=== PATIENT | male | born 1940 | race Caucasian/White ===

== ENCOUNTER 2019-08-30 12:25 | Inpatient (IN) | payer MEDICARE, OTHER ==
[2019-08-30 13:34] LABS: INR 0.9 (<1.2); Partial Thromboplastin Time 25.8 sec (22.0-30.0); Prothrombin Time 9.9 sec (9.0-12.0)
--- NOTE | 2019-08-30 13:35 | ED ---
General Adult HPI - General Chief complaint: Shortness of Breath Stated complaint: SOB Time Seen by Provider: 08/30/19 12:32 Source: patient, RN notes reviewed, old records reviewed Mode of arrival: wheelchair Limitations: physical limitation - History of Present Illness Initial comments: 79-year-old male history of COPD, history of congestive heart failure presenting with dyspnea. Patient does report a mild dry cough. Denies URI symptoms. Denies fever. Denies any chest pain. He states he's had some swelling in his feet. Denies abdominal pain nausea vomiting. He was seen by his primary care physician 2 days ago and was scheduled for an appointment later today but was unable to keep this appointment secondary to worsening dyspnea. Not currently on antibiotics or steroids. Currently taking 40 mg Lasix once daily. - Related Data Home Medications Medication Instructions Recorded Confirmed Docusate [Colace] 100 mg PO HS 12/13/14 10/22/15 Multivitamin [Men's Multi-Vitamin] 1 tab PO HS 12/13/14 10/22/15 Valsartan 320 mg PO HS 12/13/14 10/22/15 Furosemide [Lasix] 40 mg PO HS 10/22/15 10/22/15 Levothyroxine Sodium [Synthroid] 75 mcg PO HS 10/22/15 10/22/15 Potassium Chloride ER [K-Dur 20] 20 meq PO HS 10/22/15 10/22/15 Previous Rx's Medication Instructions Recorded Levofloxacin [Levaquin] 250 mg PO DAILY #10 tab 10/18/15 Allergies Allergy/AdvReac Type Severity Reaction Status Date / Time Sulfa (Sulfonamide Allergy Rash/Hives Verified 08/30/19 12:30 Antibiotics) Review of Systems ROS Statement: Those systems with pertinent positive or pertinent negative responses have been documented in the HPI. ROS Other: All systems not noted in ROS Statement are negative. Past Medical History Past Medical History: Atrial Fibrillation, Blood Disorder, COPD, GERD/Reflux, GI Bleed, Hypertension, Thyroid Disorder Additional Past Medical History / Comment(s): ANEMIA, HIATAL HERNIA (PER EGD) arrhythmia"NEEDS A PACEMAKER", skin cancer - RUPETROS Aldridge, R lutheran, Nose (sees Dr. Cortez) PAST RT LEG ULCERS History of Any Multi-Drug Resistant Organisms: VRE Date of last positivie culture/infection: 02/24/15 MDRO Source:: Right leg wound Past Surgical History: Adenoidectomy, Tonsillectomy Additional Past Surgical History / Comment(s): hemorrhoidectomy, tennis elbow, EGD. Past Anesthesia/Blood Transfusion Reactions: No Reported Reaction Past Psychological History: No Psychological Hx Reported Smoking Status: Current every day smoker Past Alcohol Use History: None Reported Past Drug Use History: None Reported - Past Family History Mother Family Medical History: No Reported History Daughter(s) History Unknown: Yes Family Medical History: Cancer Additional Family Medical History / Comment(s): uterine/lung/brain CA - current terminal Father History Unknown: Yes Family Medical History: Cancer Additional Family Medical History / Comment(s): prostate CA - from General Exam Limitations: physical limitation General appearance: alert, in no apparent distress Head exam: Present: atraumatic, normocephalic Eye exam: Present: normal appearance, PERRL, EOMI ENT exam: Present: normal exam Neck exam: Present: normal inspection. Absent: tenderness, meningismus Respiratory exam: Present: rales, decreased breath sounds. Absent: respiratory distress Cardiovascular Exam: Present: regular rate, normal rhythm GI/Abdominal exam: Present: soft, distended. Absent: tenderness, guarding Extremities exam: Present: pedal edema Neurological exam: Present: alert, oriented X3, CN II-XII intact. Absent: motor sensory deficit Psychiatric exam: Present: normal affect, normal mood Skin exam: Present: warm, dry, intact. Absent: cyanosis, diaphoretic Course Vital Signs 08/30/19 08/30/19 08/30/19 12:28 13:30 14:00 Temperature 97.9 F Pulse Rate 90 69 68 Respiratory 20 18 18 Rate Blood Pressure 151/83 143/91 171/79 O2 Sat by Pulse 97 100 98 Oximetry EKG Findings - EKG Comments: EKG Findings:: EKG: Sinus rhythm with first-degree AV block, bifascicular block, rate of 63, WY interval 248, QRS duration 160, QTC 466, no ST segment elevation. high degree block. Medical Decision Making - Medical Decision Making 79-year-old male presenting with dyspnea, minimal cough, lower extremity swelling. Patient is afebrile. He has bilateral Rales on exam. Minimal bilateral pedal edema. Chest x-ray showing concern for infiltrate and effusion. No cough, no fever, normal white blood cell count, suspect this is more related to congestive heart failure but will initiate antibiotics in the emergen cy department. His hemoglobin is stable. His creatinine is at baseline 1.71. He has a troponin elevation 0.124 which does appear to be chronic. This level will be trended. He will be started on heparin awaiting the trending of this enzyme and cardiology evaluation. His BMP is significantly elevated suggestive again of congestive heart failure was given IV diuretics in the emergency department. Patient has multiple reasons to be dyspneic including CHF, baseline COPD and concern for pneumonia. He will be admitted with cardiology on consult. I did discuss case with Dr. Mitchell who will admit this patient. He does request covid 19 testing which will be obtained in the emergency department these results are pending. - Lab Data Result diagrams: 08/30/19 13:00 08/30/19 13:00 Lab Results 08/30/19 08/30/19 08/30/19 Range/Units 13:00 13:00 13:00 WBC 10.0 (3.8-10.6) k/uL RBC 4.83 (4.30-5.90) m/uL Hgb 13.2 (13.0-17.5) gm/dL Hct 42.7 (39.0-53.0) % MCV 88.4 (80.0-100.0) fL MCH 27.3 (25.0-35.0) pg MCHC 30.9 L (31.0-37.0) g/dL RDW 14.8 (11.5-15.5) % Plt Count 308 (150-450) k/uL Neutrophils % 83 % Lymphocytes % 6 % Monocytes % 6 % Eosinophils % 3 % Basophils % 0 % Neutrophils # 8.3 H (1.3-7.7) k/uL Lymphocytes # 0.6 L (1.0-4.8) k/uL Monocytes # 0.6 (0-1.0) k/uL Eosinophils # 0.3 (0-0.7) k/uL Basophils # 0.0 (0-0.2) k/uL Hypochromasia Slight PT 9.9 (9.0-12.0) sec INR 0.9 (<1.2) APTT 25.8 (22.0-30.0) sec Sodium 142 (137-145) mmol/L Potassium 5.3 H (3.5-5.1) mmol/L Chloride 108 H (98-107) mmol/L Carbon Dioxide 28 (22-30) mmol/L Anion Gap 6 mmol/L BUN 45 H (9-20) mg/dL Creatinine 1.71 H (0.66-1.25) mg/dL Est GFR (CKD-EPI)AfAm 43 (>60 ml/min/1.73 sqM) Est GFR (CKD-EPI)NonAf 37 (>60 ml/min/1.73 sqM) Glucose 94 (74-99) mg/dL Plasma Lactic Acid Nacho (0.7-2.0) mmol/L Calcium 9.2 (8.4-10.2) mg/dL Magnesium 2.3 (1.6-2.3) mg/dL Total Bilirubin 0.4 (0.2-1.3) mg/dL AST 62 H (17-59) U/L ALT 76 H (4-49) U/L Alkaline Phosphatase 114 (38-126) U/L Troponin I (0.000-0.034) ng/mL NT-Pro-B Natriuret Pep pg/mL Total Protein 7.0 (6.3-8.2) g/dL Albumin 4.0 (3.5-5.0) g/dL 08/30/19 08/30/19 08/30/19 Range/Units 13:00 13:00 13:00 WBC (3.8-10.6) k/uL RBC (4.30-5.90) m/uL Hgb (13.0-17.5) gm/dL Hct (39.0-53.0) % MCV (80.0-100.0) fL MCH (25.0-35.0) pg MCHC (31.0-37.0) g/dL RDW (11.5-15.5) % Plt Count (150-450) k/uL Neutrophils % % Lymphocytes % % Monocytes % % Eosinophils % % Basophils % % Neutrophils # (1.3-7.7) k/uL Lymphocytes # (1.0-4.8) k/uL Monocytes # (0-1.0) k/uL Eosinophils # (0-0.7) k/uL Basophils # (0-0.2) k/uL Hypochromasia PT (9.0-12.0) sec INR (<1.2) APTT (22.0-30.0) sec Sodium (137-145) mmol/L Potassium (3.5-5.1) mmol/L Chloride (98-107) mmol/L Carbon Dioxide (22-30) mmol/L Anion Gap mmol/L BUN (9-20) mg/dL Creatinine (0.66-1.25) mg/dL Est GFR (CKD-EPI)AfAm (>60 ml/min/1.73 sqM) Est GFR (CKD-EPI)NonAf (>60 ml/min/1.73 sqM) Glucose (74-99) mg/dL Plasma Lactic Acid Nacho 0.8 (0.7-2.0) mmol/L Calcium (8.4-10.2) mg/dL Magnesium (1.6-2.3) mg/dL Total Bilirubin (0.2-1.3) mg/dL AST (17-59) U/L ALT (4-49) U/L Alkaline Phosphatase (38-126) U/L Troponin I 0.124 H* (0.000-0.034) ng/mL NT-Pro-B Natriuret Pep 67548 pg/mL Total Protein (6.3-8.2) g/dL Albumin (3.5-5.0) g/dL Critical Care Time Critical Care Time: Yes Total Critical Care Time: 35 Disposition Clinical Impression: Congestive heart failure, Elevated troponin, Community acquired pneumonia Disposition: ADMITTED IP TO THIS [facility] Condition: Stable Referrals: Alexandra Mitchell MD [Primary Care Provider] - 1-2 days Decision to Admit Reason: Admit from EC Decision Date: 08/30/19 Decision Time: 14:30
[2019-08-30 13:37] LABS: Basophils % (A) 0 %; Calcium 9.2 mg/dL (8.4-10.2); Eosinophils # (A) 0.3 k/uL (0-0.7); Eosinophils % (A) 3 %; HCT 42.7 % (39.0-53.0); HGB 13.2 gm/dL (13.0-17.5); Hypochromasia Slight; Lymphocytes # (A) 0.6 k/uL (1.0-4.8); Lymphocytes % (A) 6 %; MCH 27.3 pg (25.0-35.0); MCHC 30.9 g/dL (31.0-37.0); MCV 88.4 fL (80.0-100.0); Magnesium 2.3 mg/dL (1.6-2.3); Mean Platelet Volume 7.9; Monocytes # (A) 0.6 k/uL (0-1.0); Monocytes % (A) 6 %; Neutrophils # (A) 8.3 k/uL (1.3-7.7); Neutrophils % (A) 83 %; Platelet Count 308 k/uL (150-450); Potassium 5.3 mmol/L (3.5-5.1); RBC 4.83 m/uL (4.30-5.90); RDW 14.8 % (11.5-15.5); Total Bilirubin 0.4 mg/dL (0.2-1.3)
--- NOTE | 2019-08-30 13:43 | XR ---
EXAMINATION TYPE: XR chest 2V DATE OF EXAM: 08/30/2019 COMPARISON: 10/22/2015 INDICATION: Difficulty breathing cough short of breath TECHNIQUE: Frontal and lateral views of the chest are obtained. FINDINGS: The heart size is enlarged. The pulmonary vasculature is normal. Posterior infiltrate and small effusion may be present. IMPRESSION: 1. Posterior lower lobe infiltrate with small effusion.
[2019-08-30] MEDS ORDERED: cefTRIAXone IN SWFI 1,000 MG/10 ML SYRINGE IVP STA (13:45)
[2019-08-30] MEDS ORDERED: AZITHROMYCIN 500 MG in SODIUM CHLORIDE 0.9% 250 ML IVPB STA (13:45)
[2019-08-30] MEDS ORDERED: methylPREDNISolone SOD SUCCI 125 MG/2 ML VIAL IV STA (13:46)
[2019-08-30] MEDS ORDERED: ASPIRIN 325 MG TAB PO STA (14:12)
[2019-08-30] MEDS ORDERED: FUROSEMIDE 10 MG/ML 4 ML VIAL IV STA (14:24)
[2019-08-30] MEDS ORDERED: HEPARIN SODIUM,PORCINE 5,000 UNIT/ML 1 ML VIAL IV PRN (14:25)
[2019-08-30] MEDS ORDERED: NALOXONE 0.4 MG/ML 1 ML VIAL IV PRN (14:25)
[2019-08-30] MEDS ORDERED: HEPARIN SODIUM,PORCINE 5,000 UNIT/ML 1 ML VIAL IV ONE (14:25)
[2019-08-30] MEDS ORDERED: ACETAMINOPHEN TAB 325 MG TAB PO PRN (14:25)
[2019-08-30] MEDS ORDERED: HEPARIN SOD,PORK IN 0.45% NACL 25,000 UNIT in 0.45% NACL 1 250ML.BAG IV SCH (14:30)
[2019-08-30] MEDS ORDERED: FUROSEMIDE 20 MG TAB PO SCH (21:00)
[2019-08-30] MEDS ORDERED: SODIUM POLYSTYRENE SULFONATE 15 GM/60 ML BOTTLE PO STA (21:16)
[2019-08-30] MEDS: POTASSIUM CHLORIDE ER 10 MEQ TAB.ER.PRT PO SCH (21:18)
[2019-08-30] MEDS: MULTIVITAMINS, THERA 1 EACH TAB PO SCH (21:24)
[2019-08-30] MEDS: LEVOTHYROXINE 88 MCG TAB PO SCH (21:24)
[2019-08-30] MEDS: LOSARTAN 50 MG TAB PO SCH (21:24)
[2019-08-30] MEDS ORDERED: hydrALAZINE HCL 25 MG TAB PO STA (23:33)
[2019-08-30] MEDS: SODIUM CHLORIDE 0.9% 1,000 ML IV SCH (23:41)
[2019-08-31 04:24] LABS: Basophils % (A) 0 %; Eosinophils % (A) 0 %; HCT 39.2 % (39.0-53.0); HGB 12.1 gm/dL (13.0-17.5); Hypochromasia Slight; Lymphocytes # (A) 0.2 k/uL (1.0-4.8); Lymphocytes % (A) 3 %; MCH 27.3 pg (25.0-35.0); MCHC 30.8 g/dL (31.0-37.0); MCV 88.6 fL (80.0-100.0); Mean Platelet Volume 8.3; Monocytes # (A) 0.2 k/uL (0-1.0); Monocytes % (A) 3 %; Neutrophils # (A) 8.2 k/uL (1.3-7.7); Neutrophils % (A) 94 %; Platelet Count 280 k/uL (150-450); RBC 4.42 m/uL (4.30-5.90); RDW 14.7 % (11.5-15.5); WBC 8.7 k/uL (3.8-10.6)
[2019-08-31 05:43] LABS: Calcium 8.6 mg/dL (8.4-10.2); Potassium 4.5 mmol/L (3.5-5.1)
[2019-08-31] MEDS: AZITHROMYCIN 500 MG in SODIUM CHLORIDE 0.9% 250 ML IVPB SCH (07:54)
[2019-08-31] MEDS: hydrALAZINE HCL 25 MG TAB PO SCH ×3 (07:57→20:49)
--- NOTE | 2019-08-31 10:19 | P.CRDCN ---
History of Present Illness Consult date: 08/31/19 History of present illness: This is an 79-year-old male patient of Dr. Owusu. He has a past medical history of paroxysmal atrial fibrillation, A-V dissociation, hypertension, COPD, PAD, diastolic heart failure, mild to moderate mitral stenosis, moderate pulmonary hypertension. Patient complains of increased edema to his feet along with shortness of breath and dry cough. He denies any chest pain. He recently did a COVID-19 test with his PCP. Patient states he was ordered to start Plaquenil but did not start the prescription yet. He states his COVID-19 result was not reported. Patient came into [facility] emergency center for evaluation. EKG was a sinus rhythm with first- degree AV block, right bundle branch block, left ventricular hypertrophy. Chest x-ray possible lower lobe infiltrate with small effusion. He was afebrile, heart rate 73, blood pressure 169/86, pulse ox 93% on room air. Potassium 5.3, BUN 45 and creatinine 1.71, AST 62, ALT 76. ProBNP 14,300. Troponin 0.124, 0.099, 0.97. Patient was given 1 dose of IV Lasix 40 mg a patient states he diuresed well. He does have shortness of breath with activity and continues to have dry cough. Lower extremity edema is improved according to the patient. Review Of Systems: Constitutional: No fever, no chills, no night sweats. No weight change. Reports fatigue. No daytime sleepiness. EENT: No headache. No blurred vision or double vision, no loss of vision. No loss of Hearing, no ringing in the ears, no dizziness. No nasal drainage or congestion. No epistaxis. No sore throat. Lungs: Reports shortness of breath, reports cough, no sputum production. No wheezing. Cardiovascular: No chest pain, reports lower extremity edema. No palpitations. No paroxysmal nocturnal dyspnea. No orthopnea. No lightheadedness or dizziness. No syncopal episodes. Abdominal: No abdominal pain. No nausea, vomiting. No diarrhea. No constipation. No bloody or tarry stools.. No loss of appetite. Genitourinary: No dysuria, increased frequency, urgency. No urinary retention. Musculoskeletal: No myalgias. No muscle weakness, no gait dysfunction, no frequent falls. No back pain. No neck pain. Integumentary: No wounds, no lesions. No rash or pruritus. No unusual bruising. No change in hair or nails. Neurologic: No aphasia. No facial droop. No change in mentation. No head injury. No headache. No paralysis. No paresthesia. Psychiatric: No depression. No anxiety. No mood swings. Endocrine: No abnormal blood sugars. No weight change. No excessive sweating or thirst. No cold intolerance. No weight change. Gen: This is an 79-year-old male. He is resting in bed and appears to be comfortable. Frequent coughing noted. VS: Afebrile, heart rate 73, blood pressure 169/86, pulse ox 93% on room air HEENT: Head is atraumatic, normocephalic. Pupils equal, round. Sclerae is anicteric. NECK: Supple. No JVD. No lymphadenopathy. No thyromegaly. LUNGS: Diminished to the bilateral bases No wheezes or rhonchi. No intercostal retractions. HEART: Regular rate and rhythm. Systolic murmur. ABDOMEN: Soft. Bowel sounds are present. No masses. No tenderness. EXTREMITIES: Trace bilateral pedal edema. No calf tenderness. NEUROLOGICAL: Patient is awake, alert and oriented x3. Cranial nerves 2 through 12 are grossly intact. Assessment: Acute on chronic diastolic heart failure Non-ST elevated myocardial infarction, probably type II Probable cardiomyopathy Possible pneumonia Paroxysmal atrial fibrillation Hypertension COPD PAD Mild to moderate mitral stenosis Moderate pulmonary hypertension Hypothyroidism Plan: Continue Lasix transitioned to IV 40 mg every 8 hours, add Coreg 3.125 mg twice daily Monitor I&O, daily weights, renal function and electrolytes Increase hydralazine to 50 mg 3 times daily Transition aspirin to 81 mg daily Discontinue heparin drip and start heparin subcu. Continue losartan 150 mg daily at bedtime Obtain 2-D echocardiogram and Doppler study to assess cardiac structure and function Patient is on azithromycin and ceftriaxone. Recommend holding Plaquenil. Further recommendations to follow based upon clinical course. Thank you kindly for this consultation. Nurse practitioner note has been reviewed, I agree with documented findings and plan of care. Patient was seen and examined. Past Medical History Past Medical History: Atrial Fibrillation, Blood Disorder, COPD, GERD/Reflux, GI Bleed, Hypertension, Thyroid Disorder Additional Past Medical History / Comment(s): ANEMIA, HIATAL HERNIA (PER EGD) arrhythmia, skin cancer - RUE, LUE, R scientologist, Nose (sees Dr. Cortez) PAST RT LEG ULCERS History of Any Multi-Drug Resistant Organisms: VRE Date of last positivie culture/infection: 02/24/15 MDRO Source:: Right leg wound Past Surgical History: Adenoidectomy, Tonsillectomy Additional Past Surgical History / Comment(s): hemorrhoidectomy, tennis elbow, EGD. Past Anesthesia/Blood Transfusion Reactions: No Reported Reaction Past Psychological History: No Psychological Hx Reported Smoking Status: Current every day smoker Past Alcohol Use History: None Reported Additional Past Alcohol Use History / Comment(s): STARTED SMOKIN G AT AGE 17, TRYING TO QUIT NOW 1 CIGARETTE A DAY RECENTLY Past Drug Use History: None Reported - Past Family History Mother Family Medical History: No Reported History Daughter(s) History Unknown: Yes Family Medical History: Cancer Additional Family Medical History / Comment(s): uterine/lung/brain CA - current terminal Father History Unknown: Yes Family Medical History: Cancer Additional Family Medical History / Comment(s): prostate CA - from Medications and Allergies Home Medications Medication Instructions Recorded Confirmed Type Multivitamin [Men's Multi-Vitamin] 1 tab PO HS 12/13/14 08/30/19 History Potassium Chloride ER [K-Dur 20] 10 meq PO HS 10/22/15 08/30/19 History Furosemide [Lasix] 20 mg PO HS 08/30/19 08/30/19 History Hydroxychloroquine Sulfate 200 mg PO BID 08/30/19 08/30/19 History [Plaquenil] Levothyroxine Sodium [Synthroid] 88 mcg PO HS 08/30/19 08/30/19 History Telmisartan 80 mg PO HS 08/30/19 08/30/19 History Allergies Allergy/AdvReac Type Severity Reaction Status Date / Time Sulfa (Sulfonamide Allergy Rash/Hives Verified 08/30/19 16:27 Antibiotics) Physical Exam Vitals: Vital Signs Temp Pulse Pulse Resp BP BP Pulse Ox 08/31/19 07:39 98 F 73 18 169/86 93 L 08/31/19 04:00 97.8 F 77 20 188/98 97 08/31/19 00:00 97.9 F 79 18 192/87 98 08/30/19 20:00 98 F 78 18 183/89 97 08/30/19 16:03 97.7 F 88 16 187/83 98 08/30/19 16:00 88 16 08/30/19 15:00 98.1 F 69 18 152/76 97 08/30/19 14:00 68 18 171/79 98 08/30/19 13:30 69 18 143/91 100 08/30/19 12:28 97.9 F 90 20 151/83 97 Intake and Output 08/30/19 08/31/19 08/31/19 22:59 06:59 14:59 Intake Total 65.196 540 Output Total 200 1075 Balance -134.804 -535 Intake: Intake, IV Titration 65.196 Amount Heparin Sod,Pork in 0.45% 65.196 NaCl 25,000 unit In 0.45 % NaCl 1 250ml.bag @ 11 UNITS/KG/HR 9.979 mls/hr IV .Q24H [facility] Rx#: [id number] Oral 540 Output: Urine 200 1075 Other: # Voids 1 Weight 90.718 kg 89 kg Results 08/31/19 03:38 08/31/19 03:38 Cardiac Enzymes 08/30/19 08/30/19 08/30/19 Range/Units 13:00 13:00 19:56 AST 62 H (17-59) U/L Troponin I 0.124 H* 0.099 H* (0.000-0.034) ng/mL 08/31/19 Range/Units 01:24 AST (17-59) U/L Troponin I 0.097 H* (0.000-0.034) ng/mL Coagulation 08/30/19 08/30/19 08/31/19 Range/Units 13:00 19:56 03:38 PT 9.9 (9.0-12.0) sec APTT 25.8 39.1 H 63.1 H (22.0-30.0) sec CBC 08/30/19 08/31/19 Range/Units 13:00 03:38 WBC 10.0 8.7 (3.8-10.6) k/uL RBC 4.83 4.42 (4.30-5.90) m/uL Hgb 13.2 12.1 L (13.0-17.5) gm/dL Hct 42.7 39.2 (39.0-53.0) % Plt Count 308 280 (150-450) k/uL Comprehensive Metabolic Panel 08/30/19 08/31/19 Range/Units 13:00 03:38 Sodium 142 137 (137-145) mmol/L Potassium 5.3 H 4.5 (3.5-5.1) mmol/L Chloride 108 H 107 (98-107) mmol/L Carbon Dioxide 28 23 (22-30) mmol/L BUN 45 H 49 H (9-20) mg/dL Creatinine 1.71 H 1.50 H (0.66-1.25) mg/dL Glucose 94 123 H (74-99) mg/dL Calcium 9.2 8.6 (8.4-10.2) mg/dL AST 62 H (17-59) U/L ALT 76 H (4-49) U/L Alkaline Phosphatase 114 (38-126) U/L Total Protein 7.0 (6.3-8.2) g/dL Albumin 4.0 (3.5-5.0) g/dL Current Medications Generic Name Dose Route Start Last Admin Trade Name Freq PRN Reason Stop Dose Admin Acetaminophen 650 mg 08/30/19 14:25 Tylenol Tab PO Q6HR PRN Mild Pain or Fever > 100.5 Furosemide 20 mg 08/30/19 21:00 08/30/19 21:24 Lasix PO 20 mg HS [facility] Administration Heparin Sodium (Porcine) 0 unit 08/30/19 14:25 Heparin IV PER PROTOCOL PRN Low PTT Protocol Hydralazine HCl 25 mg 08/31/19 09:00 08/31/19 07:57 Apresoline PO 25 mg TID [facility] Administration Heparin Sodium/Sodium Chloride 250 mls @ 9.979 mls/hr 08/30/19 14:30 08/30/19 21:31 25,000 unit/ Sodium Chloride IV 13 units/kg/hr .Q24H [facility] 11.793 mls/hr Titration Protocol 11 UNITS/KG/HR Ceftriaxone Sodium 1 gm/ 50 mls @ 100 mls/hr 08/31/19 09:00 08/31/19 07:54 Sodium Chloride IVPB 100 mls/hr Q24HR [facility] Administration Azithromycin 500 mg/ Sodium 250 mls @ 250 mls/hr 08/31/19 09:00 04/18/20 07:54 Chloride IVPB 250 mls/hr DAILY [facility] Administration Sodium Chloride 1,000 mls @ 50 mls/hr 08/30/19 23:45 08/30/19 23:41 Saline 0.9% IV 50 mls/hr .Q20H [facility] Administration Levothyroxine Sodium 88 mcg 08/30/19 21:00 08/30/19 21:24 Synthroid PO 88 mcg HS [facility] Administration Losartan Potassium 150 mg 08/30/19 21:00 08/30/19 21:24 Cozaar PO 150 mg HS [facility] Administration Multivitamins 1 each 08/30/19 21:00 08/30/19 21:24 Theragran PO 1 each HS [facility] Administration Naloxone HCl 0.2 mg 08/30/19 14:25 Narcan IV Q2M PRN Opioid Reversal Potassium Chloride 10 meq 08/30/19 21:00 08/30/19 21:18 K-Dur 10 PO Not Given HS [facility] Intake and Output 08/30/19 08/31/19 08/31/19 22:59 06:59 14:59 Intake Total 65.196 540 Output Total 200 1075 Balance -134.804 -535 Intake: Intake, IV Titration 65.196 Amount Heparin Sod,Pork in 0.45% 65.196 NaCl 25,000 unit In 0.45 % NaCl 1 250ml.bag @ 11 UNITS/KG/HR 9.979 mls/hr IV .Q24H [facility] Rx#: [id number] Oral 540 Output: Urine 200 1075 Other: # Voids 1 Weight 90.718 kg 89 kg 08/31/19 03:38 08/31/19 03:38
[2019-08-31 10:38] VITALS: BMI 29.0
--- NOTE | 2019-08-31 14:00 | ECHOF ---
Referral Reason:chf MEASUREMENTS -------- HEIGHT: 175.3 cm WEIGHT: 86.2 kg BP: IVSd: 1.7 cm (0.6 - 1.1) LVIDd: 5.2 cm (3.9 - 5.3) LVPWd: 1.3 cm (0.6 - 1.1) IVSs: 1.5 cm LVIDs: 4.6 cm LVPWs: 1.2 cm LAESV Index (A-L): 60.28 ml/m Ao Diam: 2.5 cm (2.0 - 3.7) AV Cusp: 1.2 cm (1.5 - 2.6) LA Diam: 2.2 cm (2.7 - 3.8) MV EXCURSION: 14.577 mm (> 18.000) MV EF SLOPE: 24 mm/s (70 - 150) EPSS: 0.7 cm MV E Renato: 1.70 m/s MV DecT: 244 ms MV A Renato: 1.19 m/s MV E/A Ratio: 1.43 AV maxP.03 mmHg AV meanP.80 mmHg AR PHT: 675 ms RAP: 5.00 mmHg RVSP: 21.17 mmHg FINDINGS -------- Sinus rhythm. This was a technically adequate study. The left ventricular size is normal. There is moderate concentric left ventricular hypertrophy. T here is severe global hypokinesis of LV . Overall left ventricular systolic function is severely im paired with, an EF between 25 - 30 %. Increased LAP Grade 3 Diastolic Dysfunction. The right ventricle is normal in size. LA is severely dilated >40 ml/m2 The right atrial size is normal. Aortic valve is trileaflet and is moderately thickened. There is mild aortic regurgitation. There is moderate aortic stenosis present. Peak/mean gradient across the Aortic Valve is 33.03mmHg / 27. 80mmHg. The mitral valve is normal. The mitral valve leaflets are moderately thickened. Moderate mitral a nnular calcification present. Mild mitral regurgitation is present. The peak and mean MV gradien ts are 17.14mmHg 6.07mmHg as measured by doppler. [id number] mitral stenosis. The tricuspid valve appears structurally normal. Mild tricuspid regurgitation present. Right vent ricular systolic pressure is normal at < 35 mmHg. There is no pulmonic regurgitation present. The aortic root size is normal. Normal inferior vena cava with normal inspiratory collapse consistent with estimated right atrial pre ssure of 5 mmHg. There is no pericardial effusion. CONCLUSIONS -------- 1. Sinus rhythm. 2. This was a technically adequate study. 3. The left ventricular size is normal. 4. There is moderate concentric left ventricular hypertrophy. 5. There is severe global hypokinesis of LV . 6. Increased LAP Grade 3 Diastolic Dysfunction. 7. The right ventricle is normal in size. 8. LA is severely dilated >40 ml/m2 9. The right atrial size is normal. 10. Aortic valve is trileaflet and is moderately thickened. 11. There is mild aortic regurgitation. 12. There is moderate aortic stenosis present. 13. Peak/mean gradient across the Aortic Valve is 33.03mmHg / 27.80mmHg. 14. The mitral valve is normal. 15. The mitral valve leaflets are moderately thickened. 16. Moderate mitral annular calcification present. 17. Mild mitral regurgitation is present. 18. The peak and mean MV gradients are 17.14mmHg 6.07mmHg as measured by doppler. 19. [id number] mitral stenosis. 20. The tricuspid valve appears structurally normal. 21. Mild tricuspid regurgitation present. 22. Right ventricular systolic pressure is normal at < 35 mmHg. 23. There is no pulmonic regurgitation present. 24. The aortic root size is normal. 25. Normal inferior vena cava with normal inspiratory collapse consistent with estimated right atrial pressure of 5 mmHg. 26. There is no pericardial effusion. RN LACTATION CONSULTANT: Alexus Rubio RDCS
--- NOTE | 2019-08-31 14:18 | P.HPIM ---
History of Present Illness H&P Date: 08/31/19 Sean Lin is an 79-year-old male who presented to [facility] emergency room with a one-week history of cough and shortness of breath he was evaluated in the emergency room chest x-ray revealed evidence of infiltrate suggestive of pneumonia, Covid 19 testing was negative, patient was started on IV antibiotic and was admitted to telemetry floor, pulmonary consultation was requested, patient also had slight elevation in his troponin level, he was started on IV heparin in the emergency room, and cardiology consultation was requested. Past Medical History Past Medical History: Atrial Fibrillation, Blood Disorder, COPD, GERD/Reflux, GI Bleed, Hypertension, Thyroid Disorder Additional Past Medical History / Comment(s): ANEMIA, HIATAL HERNIA (PER EGD) arrhythmia, skin cancer - RUE, LUE, R orthodox, Nose (sees Dr. Cortez) PAST RT LEG ULCERS History of Any Multi-Drug Resistant Organisms: VRE Date of last positivie culture/infection: 02/24/15 MDRO Source:: Right leg wound Past Surgical History: Adenoidectomy, Tonsillectomy Additional Past Surgical History / Comment(s): hemorrhoidectomy, tennis elbow, EGD. Past Anesthesia/Blood Transfusion Reactions: No Reported Reaction Past Psychological History: No Psychological Hx Reported Smoking Status: Current every day smoker Past Alcohol Use History: None Reported Additional Past Alcohol Use History / Comment(s): STARTED SMOKIN G AT AGE 17, TRYING TO QUIT NOW 1 CIGARETTE A DAY RECENTLY Past Drug Use History: None Reported - Past Family History Mother Family Medical History: No Reported History Daughter(s) History Unknown: Yes Family Medical History: Cancer Additional Family Medical History / Comment(s): uterine/lung/brain CA - current terminal Father History Unknown: Yes Family Medical History: Cancer Additional Family Medical History / Comment(s): prostate CA - from Medications and Allergies Home Medications Medication Instructions Recorded Confirmed Type Multivitamin [Men's Multi-Vitamin] 1 tab PO HS 12/13/14 08/30/19 History Potassium Chloride ER [K-Dur 20] 10 meq PO HS 10/22/15 08/30/19 History Furosemide [Lasix] 20 mg PO HS 08/30/19 08/30/19 History Hydroxychloroquine Sulfate 200 mg PO BID 08/30/19 08/30/19 History [Plaquenil] Levothyroxine Sodium [Synthroid] 88 mcg PO HS 08/30/19 08/30/19 History Telmisartan 80 mg PO HS 08/30/19 08/30/19 History Allergies Allergy/AdvReac Type Severity Reaction Status Date / Time Sulfa (Sulfonamide Allergy Rash/Hives Verified 08/30/19 16:27 Antibiotics) Physical Exam Vitals: Vital Signs Temp Pulse Pulse Resp BP BP Pulse Ox 08/31/19 07:39 98 F 73 18 169/86 93 L 08/31/19 04:00 97.8 F 77 20 188/98 97 08/31/19 00:00 97.9 F 79 18 192/87 98 08/30/19 20:00 98 F 78 18 183/89 97 08/30/19 16:03 97.7 F 88 16 187/83 98 08/30/19 16:00 88 16 08/30/19 15:00 98.1 F 69 18 152/76 97 08/30/19 14:00 68 18 171/79 98 08/30/19 13:30 69 18 143/91 100 08/30/19 12:28 97.9 F 90 20 151/83 97 Intake and Output 08/30/19 08/31/19 08/31/19 22:59 06:59 14:59 Intake Total 65.196 540 Output Total 200 1075 Balance -134.804 -535 Intake: Intake, IV Titration 65.196 Amount Heparin Sod,Pork in 0.45% 65.196 NaCl 25,000 unit In 0.45 % NaCl 1 250ml.bag @ 11 UNITS/KG/HR 9.979 mls/hr IV .Q24H [facility] Rx#: [id number] Oral 540 Output: Urine 200 1075 Other: # Voids 1 Weight 90.718 kg 89 kg 89 kg In general patient is alert and oriented 3 in no apparent distress HEENT head normocephalic and atraumatic Neck is supple no JVD no goiter no lymphadenopathy Chest exam reveals coarse crackles in both bases no wheezing Cardiac exam reveals regular heart sounds S1 and S2 no gallops no murmurs Abdomen is soft nontender no organomegaly with normal bowel sounds Extremity exam reveals no edema no cyanosis or clubbing Neurological exam reveals no gross focal deficit Results CBC & Chem 7: 08/31/19 03:38 08/31/19 03:38 Labs: Abnormal Lab Results - Last 24 Hours (Table) 08/30/19 08/30/19 08/30/19 Range/Units 13:00 13:00 13:00 Hgb (13.0-17.5) gm/dL MCHC 30.9 L (31.0-37.0) g/dL Neutrophils # 8.3 H (1.3-7.7) k/uL Lymphocytes # 0.6 L (1.0-4.8) k/uL APTT (22.0-30.0) sec Potassium 5.3 H (3.5-5.1) mmol/L Chloride 108 H (98-107) mmol/L BUN 45 H (9-20) mg/dL Creatinine 1.71 H (0.66-1.25) mg/dL Glucose (74-99) mg/dL AST 62 H (17-59) U/L ALT 76 H (4-49) U/L Troponin I 0.124 H* (0.000-0.034) ng/mL 08/30/19 08/30/19 08/31/19 Range/Units 19:56 19:56 01:24 Hgb (13.0-17.5) gm/dL MCHC (31.0-37.0) g/dL Neutrophils # (1.3-7.7) k/uL Lymphocytes # (1.0-4.8) k/uL APTT 39.1 H (22.0-30.0) sec Potassium (3.5-5.1) mmol/L Chloride (98-107) mmol/L BUN (9-20) mg/dL Creatinine (0.66-1.25) mg/dL Glucose (74-99) mg/dL AST (17-59) U/L ALT (4-49) U/L Troponin I 0.099 H* 0.097 H* (0.000-0.034) ng/mL 08/31/19 08/31/19 08/31/19 Range/Units 03:38 03:38 03:38 Hgb 12.1 L (13.0-17.5) gm/dL MCHC 30.8 L (31.0-37.0) g/dL Neutrophils # 8.2 H (1.3-7.7) k/uL Lymphocytes # 0.2 L (1.0-4.8) k/uL APTT 63.1 H (22.0-30.0) sec Potassium (3.5-5.1) mmol/L Chloride (98-107) mmol/L BUN 49 H (9-20) mg/dL Creatinine 1.50 H (0.66-1.25) mg/dL Glucose 123 H (74-99) mg/dL AST (17-59) U/L ALT (4-49) U/L Troponin I (0.000-0.034) ng/mL Thrombosis Risk Factor Assmnt - Choose All That Apply Each Factor Represents 1 point: Swollen legs (current) Other Risk Factors: No Each Risk Factor Represents 3 Points: Age 75 years or older Other congenital or acquired thrombophilia - If yes, enter type in comment: No Thrombosis Risk Factor Assessment Total Risk Factor Score: 4 Thrombosis Risk Factor Assessment Level: Moderate Risk Assessment and Plan Plan: #1 pneumonia in the posterior lower lobe with small effusions patient was admitted to telemetry floor he was started on IV antibiotic pulmonary consultation was requested. Covid 19 testing was negative #2 slight elevation in troponin level patient was started on IV heparin in the emergency room cardiology consultation was requested echocardiogram ordered #3 hyperkalemia on presentation with potassium at 5.31 dose of Kayexalate ordered #4 dehydration was acute kidney injury BUN 45 creatinine 1.71 on presentation patient was started on IV fluids for gentle hydration #5 underlying history of hypertension At this time patient is admitted to medical floor he is maintained on IV antibiotic Rocephin and Zithromax He is maintained on IV fluid normal saline at 50 mL an hour Echocardiogram ordered Cardiology and pulmonary consultation requested Will check sputum sample for culture Will follow in a.m.
--- NOTE | 2019-08-31 14:52 | P.CNPUL ---
History of Present Illness Consult date: 08/31/19 Reason for consult: dyspnea, cough, pneumonia Chief complaint: Shortness of breath along with cough for a week History of present illness: This is a 79-year-old male who was seen eval reexamined on third floor the patient has been admitted from the emergency department with one-week history of cough shortness of breath denies any fever has some swelling of the lower extremity as well patient has been on Lasix for his cold blood testing has been negative, patient has a chronic stage III renal failure, his troponin were noted to be elevated, being evaluated by cardiovascular services, is been on heparin, suggestion of infiltrate in the lower lobes posteriorly along with a small effusion likely patient has appearance of a combination of fluid overload and pneumonia, patient is being treated with antibiotics along with gentle diuresis with some stability Review of Systems All systems: negative Past Medical History Past Medical History: Atrial Fibrillation, Blood Disorder, COPD, GERD/Reflux, GI Bleed, Hypertension, Thyroid Disorder Additional Past Medical History / Comment(s): ANEMIA, HIATAL HERNIA (PER EGD) arrhythmia, skin cancer - RUE, LUE, R holiness, Nose (sees Dr. Cortez) PAST RT LEG ULCERS History of Any Multi-Drug Resistant Organisms: VRE Date of last positivie culture/infection: 02/24/15 MDRO Source:: Right leg wound Past Surgical History: Adenoidectomy, Tonsillectomy Additional Past Surgical History / Comment(s): hemorrhoidectomy, tennis elbow, EGD. Past Anesthesia/Blood Transfusion Reactions: No Reported Reaction Past Psychological History: No Psychological Hx Reported Smoking Status: Current every day smoker Past Alcohol Use History: None Reported Additional Past Alcohol Use History / Comment(s): STARTED SMOKIN G AT AGE 17, TRYING TO QUIT NOW 1 CIGARETTE A DAY RECENTLY Past Drug Use History: None Reported - Past Family History Mother Family Medical History: No Reported History Daughter(s) History Unknown: Yes Family Medical History: Cancer Additional Family Medical History / Comment(s): uterine/lung/brain CA - current terminal Father History Unknown: Yes Family Medical History: Cancer Additional Family Medical History / Comment(s): prostate CA - from Medications and Allergies Home Medications Medication Instructions Recorded Confirmed Type Multivitamin [Men's Multi-Vitamin] 1 tab PO HS 12/13/14 08/30/19 History Potassium Chloride ER [K-Dur 20] 10 meq PO HS 10/22/15 08/30/19 History Furosemide [Lasix] 20 mg PO HS 08/30/19 08/30/19 History Hydroxychloroquine Sulfate 200 mg PO BID 08/30/19 08/30/19 History [Plaquenil] Levothyroxine Sodium [Synthroid] 88 mcg PO HS 08/30/19 08/30/19 History Telmisartan 80 mg PO HS 08/30/19 08/30/19 History Allergies Allergy/AdvReac Type Severity Reaction Status Date / Time Sulfa (Sulfonamide Allergy Rash/Hives Verified 08/30/19 16:27 Antibiotics) Physical Exam Vitals: Vital Signs Temp Pulse Pulse Resp BP BP Pulse Ox 08/31/19 12:00 97.9 F 70 20 145/71 94 L 08/31/19 07:39 98 F 73 18 169/86 93 L 08/31/19 04:00 97.8 F 77 20 188/98 97 08/31/19 00:00 97.9 F 79 18 192/87 98 08/30/19 20:00 98 F 78 18 183/89 97 08/30/19 16:03 97.7 F 88 16 187/83 98 08/30/19 16:00 88 16 08/30/19 15:00 98.1 F 69 18 152/76 97 Intake and Output 08/30/19 08/31/19 08/31/19 22:59 06:59 14:59 Intake Total 65.196 540 Output Total 200 1075 Balance -134.804 -535 Intake: Intake, IV Titration 65.196 Amount Heparin Sod,Pork in 0.45% 65.196 NaCl 25,000 unit In 0.45 % NaCl 1 250ml.bag @ 11 UNITS/KG/HR 9.979 mls/hr IV .Q24H [facility] Rx#: [id number] Oral 540 Output: Urine 200 1075 Other: # Voids 1 Weight 90.718 kg 89 kg 89 kg - Constitutional General appearance: average body habitus, cooperative, disheveled - EENT Eyes: EOMI, PERRLA ENT: normal oropharynx Ears: bilateral: normal - Neck Carotids: bilateral: upstroke normal Thyroid: bilateral: normal size - Respiratory Respiratory: bilateral: CTA - Cardiovascular Rhythm: regular Heart sounds: normal: S1, S2 - Gastrointestinal General gastrointestinal: normal bowel sounds, soft - Neurologic Neurologic: CNII-XII intact - Musculoskeletal Musculoskeletal: gait normal, generalized weakness, strength equal bilaterally - Psychiatric Psychiatric: A&O x's 3, appropriate affect, intact judgment & insight Results - Laboratory Findings CBC and BMP: 08/31/19 03:38 08/31/19 03:38 PT/INR, D-dimer PT 9.9 sec (9.0-12.0) 08/30/19 13:00 INR 0.9 (<1.2) 08/30/19 13:00 Abnormal lab findings: Abnormal Labs 08/30/19 08/30/19 08/30/19 13:00 13:00 13:00 Hgb MCHC 30.9 L Neutrophils # 8.3 H Lymphocytes # 0.6 L APTT Potassium 5.3 H Chloride 108 H BUN 45 H Creatinine 1.71 H Glucose AST 62 H ALT 76 H Troponin I 0.124 H* 08/30/19 08/30/19 08/31/19 19:56 19:56 01:24 Hgb MCHC Neutrophils # Lymphocytes # APTT 39.1 H Potassium Chloride BUN Creatinine Glucose AST ALT Troponin I 0.099 H* 0.097 H* 08/31/19 08/31/19 08/31/19 03:38 03:38 03:38 Hgb 12.1 L MCHC 30.8 L Neutrophils # 8.2 H Lymphocytes # 0.2 L APTT 63.1 H Potassium Chloride BUN 49 H Creatinine 1.50 H Glucose 123 H AST ALT Troponin I - Diagnostic Findings Chest x-ray: report reviewed, image reviewed (Finding as noted above) Assessment and Plan Assessment: Acute pneumonia involving lower lobe more on the lateral view along with a small effusion Small bowel pleural effusion Acute on chronic diastolic heart failure based on echocardiogram and clinical presentation Moderate aortic stenosis Clinically less likely to be covid pneumonia, with negative testing Elevated troponin likely demand ischemia versus non-ST segment elevated TX Paroxysmal atrial fibrillation Plan: Continue antibiotics to complete 5-7 day course Continue gentle diuresis Maximum cardiac therapy for non-ST segment elevated TX Increase activity as tolerated Further recommendations pending plan of care as per clinical response of patient Time with Patient: Greater than 30
[2019-08-31] MEDS: guaiFENesin 600 MG TABLET.ER PO SCH ×2 (17:09→20:50)
[2019-08-31] MEDS: CARVEDILOL 3.125 MG TAB PO SCH (17:09)
[2019-08-31] MEDS: FUROSEMIDE 10 MG/ML 4 ML VIAL IV SCH ×2 (17:09→22:55)
[2019-08-31] MEDS: LEVOTHYROXINE 88 MCG TAB PO SCH (20:49)
[2019-08-31] MEDS: MULTIVITAMINS, THERA 1 EACH TAB PO SCH (20:49)
[2019-08-31] MEDS: HEPARIN SODIUM,PORCINE 5,000 UNIT/ML 1 ML VIAL SQ SCH (20:49)
[2019-08-31] MEDS: LOSARTAN 50 MG TAB PO SCH (20:50)
[2019-08-31] MEDS: POTASSIUM CHLORIDE ER 10 MEQ TAB.ER.PRT PO SCH (20:50)
[2019-08-31] MEDS: SODIUM CHLORIDE 0.9% 1,000 ML IV SCH (20:50)
[2019-09-01] MEDS: CARVEDILOL 3.125 MG TAB PO SCH (06:34)
[2019-09-01 06:42] LABS: Basophils % (A) 0 %; Eosinophils # (A) 0.3 k/uL (0-0.7); Eosinophils % (A) 3 %; HCT 36.5 % (39.0-53.0); HGB 11.6 gm/dL (13.0-17.5); Lymphocytes # (A) 0.6 k/uL (1.0-4.8); Lymphocytes % (A) 7 %; MCHC 31.7 g/dL (31.0-37.0); MCV 88.3 fL (80.0-100.0); Mean Platelet Volume 8.3; Monocytes # (A) 0.6 k/uL (0-1.0); Monocytes % (A) 7 %; Neutrophils # (A) 7.7 k/uL (1.3-7.7); Neutrophils % (A) 82 %; Platelet Count 244 k/uL (150-450); RBC 4.13 m/uL (4.30-5.90); RDW 15.2 % (11.5-15.5); WBC 9.4 k/uL (3.8-10.6)
[2019-09-01 07:00] LABS: Albumin 3.1 g/dL (3.5-5.0); Calcium 8.5 mg/dL (8.4-10.2); Magnesium 2.1 mg/dL (1.6-2.3); Potassium 4.6 mmol/L (3.5-5.1); Total Bilirubin 0.3 mg/dL (0.2-1.3); Total Protein 5.9 g/dL (6.3-8.2)
[2019-09-01] MEDS: FUROSEMIDE 10 MG/ML 4 ML VIAL IV SCH ×3 (10:12→23:14)
[2019-09-01] MEDS: AZITHROMYCIN 500 MG in SODIUM CHLORIDE 0.9% 250 ML IVPB SCH (10:12)
[2019-09-01] MEDS: guaiFENesin 600 MG TABLET.ER PO SCH (10:13)
[2019-09-01] MEDS: hydrALAZINE HCL 50 MG TAB PO SCH ×3 (10:13→23:14)
[2019-09-01] MEDS: CARVEDILOL 6.25 MG TAB PO SCH ×2 (10:13→15:59)
[2019-09-01] MEDS: ASPIRIN 81 MG PO SCH (10:13)
[2019-09-01] MEDS: HEPARIN SODIUM,PORCINE 5,000 UNIT/ML 1 ML VIAL SQ SCH ×2 (10:13→20:20)
--- NOTE | 2019-09-01 12:07 | P.PN ---
Subjective Progress Note Date: 09/01/19 History of present illness: This is an 79-year-old male patient of Dr. Owusu. He has a past medical history of paroxysmal atrial fibrillation, A-V dissociation, hyperte nsion, COPD, PAD, diastolic heart failure, mild to moderate mitral stenosis, moderate pulmonary hypertension. Patient complains of increased edema to his feet along with shortness of breath and dry cough. He denies any chest pain. He recently did a COVID-19 test with his PCP. Patient states he was ordered to start Plaquenil but did not start the prescription yet. He states his COVID-19 result was not reported. Patient came into emergency center for evaluation. EKG was a sinus rhythm with first-degree AV block, right bundle branch block, left ventricular hypertrophy. Chest x-ray possible lower lobe infiltrate with small effusion. He was afebrile, heart rate 73, blood pressure 169/86, pulse ox 93% on room air. Potassium 5.3, BUN 45 and creatinine 1.71, AST 62, ALT 76. ProBNP 14,300. Troponin 0.124, 0.099, 0.97. Patient was given 1 dose of IV Lasix 40 mg a patient states he diuresed well. He does have shortness of breath with activity and continues to have dry cough. Lower extremity edema is improved according to the patient. 08/31: Patient states that he did not sleep well during the night. He states his shortness of breath is about the same from yesterday. Noted in improved lower extremity edema. Repeat blood work reveals WBC 9.4, hemoglobin 11.6, platelet count 244, BUN 65 and creatinine 1.84. Echocardiogram reveals EF of 25-30%, moderate aortic stenosis, mild mitral regurgitation, mild to moderate mitral stenosis, mild tricuspid regurgitation. Patient has not followed with cardiology in the office as he has refused to have a device placed in the past. This was discussed on this hospitalization and patient refuses device placement. Physical examination: Gen: This is an 79-year-old male. He is resting in bed and appears to be comfortable. Frequent coughing noted. VS: Afebrile, heart rate 73, blood pressure 169/86, pulse ox 93% on room air HEENT: Head is atraumatic, normocephalic. Pupils equal, round. Sclerae is anicteric. NECK: Supple. No JVD. No lymphadenopathy. No thyromegaly. LUNGS: Diminished with fine crackles to the bilateral bases . No intercostal retractions. HEART: Regular rate and rhythm. Systolic murmur. ABDOMEN: Soft. Bowel sounds are present. No masses. No tenderness. EXTREMITIES: Trace bilateral pedal edema. No calf tenderness. NEUROLOGICAL: Patient is awake, alert and oriented x3. Cranial nerves 2 through 12 are grossly intact. Assessment: Acute on chronic diastolic heart failure Non-ST elevated myocardial infarction, probably type II Severe cardiomyopathy Possible pneumonia Paroxysmal atrial fibrillation Hypertension COPD PAD Valvular heart disease with moderate aortic stenosis, mild mitral regurgitation, mild to moderate mitral stenosis, mild tricuspid regurgitation Hypothyroidism Plan: Continue Lasix IV 40 mg every 8 hours and Coreg increased to 6.25 mg twice daily Monitor I&O, daily weights, renal function and electrolytes Continue hydralazine 50 mg 3 times daily Continue aspirin 81 mg daily Continue heparin subcu. Continue losartan 150 mg daily at bedtime Patient is on azithromycin and ceftriaxone. Recommend holding Plaquenil. Further recommendations to follow based upon clinical course. Thank you kindly for this consultation. Nurse practitioner note has been reviewed, I agree with documented findings and plan of care. Patient was seen and examined. Objective - Vital Signs Vital signs: Vital Signs Temp 97.6 F 09/01/19 08:00 Pulse 62 09/01/19 08:00 Resp 20 09/01/19 08:00 BP 160/69 09/01/19 08:00 Pulse Ox 97 09/01/19 08:00 Intake & Output 08/31/19 09/01/19 09/01/19 18:59 06:59 18:59 Intake Total 200 480 Output Total 400 1800 Balance -200 -1320 Weight 89 kg 88.5 kg Intake: Oral 200 480 Output: Urine 400 1800 Other: # Voids 2 - Labs CBC & Chem 7: 09/01/19 05:53 09/01/19 05:53 Labs: Abnormal Lab Results - Last 24 Hours (Table) 09/01/19 09/01/19 Range/Units 05:53 05:53 RBC 4.13 L (4.30-5.90) m/uL Hgb 11.6 L (13.0-17.5) gm/dL Hct 36.5 L (39.0-53.0) % Lymphocytes # 0.6 L (1.0-4.8) k/uL BUN 65 H (9-20) mg/dL Creatinine 1.84 H (0.66-1.25) mg/dL Total Protein 5.9 L (6.3-8.2) g/dL Albumin 3.1 L (3.5-5.0) g/dL Microbiology - Last 24 Hours (Table) 08/30/19 13:00 Blood Culture - Preliminary Blood No Growth after 24 hours
--- NOTE | 2019-09-01 12:32 | P.PN ---
Subjective Progress Note Date: 09/01/19 Principal diagnosis: Acute pneumonia involving lower lobe more on the lateral view along with a small effusion Small bowel pleural effusion Acute on chronic diastolic heart failure based on echocardiogram and clinical presentation Moderate aortic stenosis Clinically less likely to be covid pneumonia, with negative testing Elevated troponin likely demand ischemia versus non-ST segment elevated DE Paroxysmal atrial fibrillation 09/01/2019, patient seen eval examined during the rounds, respiratory status remains stable, patient had a hard time sleeping with poor quality of sleep, denies any cough or sputum production, labs reviewed, echocardiogram reviewed as well with ejection fraction 25% along with moderate aortic stenosis, patient declined AICD placement, tolerating antibiotics fairly well This is a 79-year-old male who was seen eval reexamined on third floor the patient has been admitted from the emergency department with one-week history of cough shortness of breath denies any fever has some swelling of the lower extremity as well patient has been on Lasix for his cold blood testing has been negative, patient has a chronic stage III renal failure, his troponin were noted to be elevated, being evaluated by cardiovascular services, is been on heparin, suggestion of infiltrate in the lower lobes posteriorly along with a small effusion likely patient has appearance of a combination of fluid overload and pneumonia, patient is being treated with antibiotics along with gentle diuresis with some stability Objective - Vital Signs Vital signs: Vital Signs Temp 97.6 F 09/01/19 08:00 Pulse 62 09/01/19 08:00 Resp 20 09/01/19 08:00 BP 160/69 09/01/19 08:00 Pulse Ox 97 09/01/19 08:00 Intake & Output 08/31/19 09/01/19 09/01/19 18:59 06:59 18:59 Intake Total 200 480 Output Total 400 1800 Balance -200 -1320 Weight 89 kg 88.5 kg Intake: Oral 200 480 Output: Urine 400 1800 Other: # Voids 2 - Exam - Constitutional General appearance: average body habitus, cooperative, disheveled - EENT Eyes: EOMI, PERRLA ENT: normal oropharynx Ears: bilateral: normal - Neck Carotids: bilateral: upstroke normal Thyroid: bilateral: normal size - Respiratory Respiratory: bilateral: CTA - Cardiovascular Rhythm: regular Heart sounds: normal: S1, S2 - Gastrointestinal General gastrointestinal: normal bowel sounds, soft - Neurologic Neurologic: CNII-XII intact - Musculoskeletal Musculoskeletal: gait normal, generalized weakness, strength equal bilaterally - Psychiatric Psychiatric: A&O x's 3, appropriate affect, intact judgment & insight - Labs CBC & Chem 7: 09/01/19 05:53 09/01/19 05:53 Labs: Abnormal Lab Results - Last 24 Hours (Table) 09/01/19 09/01/19 Range/Units 05:53 05:53 RBC 4.13 L (4.30-5.90) m/uL Hgb 11.6 L (13.0-17.5) gm/dL Hct 36.5 L (39.0-53.0) % Lymphocytes # 0.6 L (1.0-4.8) k/uL BUN 65 H (9-20) mg/dL Creatinine 1.84 H (0.66-1.25) mg/dL Total Protein 5.9 L (6.3-8.2) g/dL Albumin 3.1 L (3.5-5.0) g/dL Microbiology - Last 24 Hours (Table) 08/30/19 13:00 Blood Culture - Preliminary Blood No Growth after 24 hours Assessment and Plan Assessment: Acute pneumonia involving lower lobe more on the lateral view along with a small effusion Small bowel pleural effusion Acute on chronic diastolic heart failure based on echocardiogram and clinical presentation Moderate aortic stenosis Clinically less likely to be covid pneumonia, with negative testing Elevated troponin likely demand ischemia versus non-ST segment elevated DE Paroxysmal atrial fibrillation Plan: Continue antibiotics to complete 5-7 day course Continue gentle diuresis Maximum cardiac therapy for non-ST segment elevated DE Increase activity as tolerated Further recommendations pending plan of care as per clinical response of patient Time with Patient: Greater than 30
[2019-09-01 12:38] VITALS: RESP 18
[2019-09-01] MEDS: hydrALAZINE HCL 25 MG TAB PO SCH (12:38)
--- NOTE | 2019-09-01 13:26 | P.PN ---
Subjective Progress Note Date: 09/01/19 Sean Lin is an 79-year-old male who presented to [facility] emergency room with a one-week history of cough and shortness of breath he was evaluated in the emergency room chest x-ray revealed evidence of infiltrate suggestive of pneumonia, Covid 19 testing was negative, patient was started on IV antibiotic and was admitted to telemetry floor, pulmonary consultation was requested, patient also had slight elevation in his troponin level, he was started on IV heparin in the emergency room, and cardiology consultation was requested. On 09/01/2019 patient was seen and examined on the medical floor he is alert and oriented 3 in no apparent distress, he is complaining of cough and shortness of breath otherwise he denies any complaints, there is no fever or chills no headache or dizziness no chest pain no nausea or vomiting no abdominal pain no diarrhea and no urinary symptoms. Vital examination reveals a temperature of 97.6 pulse 64 respiration 20 blood pressure 168/83 pulse ox 100% on 2 L nasal cannula. Laboratory data is significant for anemia with hemoglobin of 11.6 worsening renal function was BUN of 65 and creatinine 1.84 Objective - Vital Signs Vital signs: Vital Signs Temp 98.1 F 09/01/19 12:00 Pulse 74 09/01/19 12:00 Resp 18 09/01/19 12:00 BP 135/56 09/01/19 12:00 Pulse Ox 98 09/01/19 12:00 Intake & Output 08/31/19 09/01/19 09/01/19 18:59 06:59 18:59 Intake Total 200 480 Output Total 400 1800 Balance -200 -1320 Weight 89 kg 88.5 kg Intake: Oral 200 480 Output: Urine 400 1800 Other: # Voids 2 - Exam In general patient is alert and oriented 3 in no apparent distress HEENT head normocephalic and atraumatic Neck is supple no JVD no goiter no lymphadenopathy Chest exam reveals coarse crackles in both bases no wheezing Cardiac exam reveals regular heart sounds S1 and S2 no gallops no murmurs Abdomen is soft nontender no organomegaly with normal bowel sounds Extremity exam reveals no edema no cyanosis or clubbing Neurological exam reveals no gross focal deficit - Labs CBC & Chem 7: 09/01/19 05:53 09/01/19 05:53 Labs: Abnormal Lab Results - Last 24 Hours (Table) 09/01/19 09/01/19 Range/Units 05:53 05:53 RBC 4.13 L (4.30-5.90) m/uL Hgb 11.6 L (13.0-17.5) gm/dL Hct 36.5 L (39.0-53.0) % Lymphocytes # 0.6 L (1.0-4.8) k/uL BUN 65 H (9-20) mg/dL Creatinine 1.84 H (0.66-1.25) mg/dL Total Protein 5.9 L (6.3-8.2) g/dL Albumin 3.1 L (3.5-5.0) g/dL Microbiology - Last 24 Hours (Table) 08/30/19 13:00 Blood Culture - Preliminary Blood No Growth after 24 hours Assessment and Plan Plan: #1 pneumonia in the posterior lower lobe with small effusions patient was admit peter to telemetry floor he was started on IV antibiotic pulmonary consultation was requested. Covid 19 testing was negative #2 slight elevation in troponin level patient was started on IV heparin in the emergency room cardiology consultation was requested echocardiogram ordered #3 hyperkalemia on presentation with potassium at 5.31 dose of Kayexalate ordered #4 dehydration was acute kidney injury BUN 45 creatinine 1.71 on presentation patient was started on IV fluids for gentle hydration. Patient was started on IV Lasix yesterday by cardiology kidney function worsens significantly at this time would hold IV Lasix and monitor kidney function in a.m. #5 underlying history of hypertension At this time patient is admitted to medical floor he is maintained on IV antibiotic Rocephin and Zithromax He is maintained on IV fluid normal saline at 50 mL an hour Echocardiogram ordered Cardiology and pulmonary consultation requested Will check sputum sample for culture Will follow in a.m.
[2019-09-01] MEDS: SODIUM CHLORIDE 0.9% 1,000 ML IV SCH (16:07)
[2019-09-01] MEDS: POTASSIUM CHLORIDE ER 10 MEQ TAB.ER.PRT PO SCH (20:20)
[2019-09-01] MEDS: MULTIVITAMINS, THERA 1 EACH TAB PO SCH (20:21)
[2019-09-01] MEDS: LOSARTAN 50 MG TAB PO SCH (20:21)
[2019-09-01] MEDS: LEVOTHYROXINE 88 MCG TAB PO SCH (20:21)
[2019-09-02] MEDS: CARVEDILOL 6.25 MG TAB PO SCH (06:22)
[2019-09-02 06:57] LABS: Basophils # (A) 0.1 k/uL (0-0.2); Basophils % (A) 1 %; Eosinophils # (A) 0.4 k/uL (0-0.7); Eosinophils % (A) 4 %; HCT 38.4 % (39.0-53.0); HGB 11.9 gm/dL (13.0-17.5); Hypochromasia Slight; Lymphocytes # (A) 0.6 k/uL (1.0-4.8); Lymphocytes % (A) 6 %; MCH 27.5 pg (25.0-35.0); MCV 88.5 fL (80.0-100.0); Mean Platelet Volume 8.1; Monocytes # (A) 0.6 k/uL (0-1.0); Monocytes % (A) 7 %; Neutrophils # (A) 7.6 k/uL (1.3-7.7); Neutrophils % (A) 81 %; Platelet Count 277 k/uL (150-450); RBC 4.34 m/uL (4.30-5.90); WBC 9.3 k/uL (3.8-10.6)
[2019-09-02 07:26] LABS: Albumin 3.4 g/dL (3.5-5.0); Potassium 4.6 mmol/L (3.5-5.1); Total Bilirubin 0.2 mg/dL (0.2-1.3); Total Protein 6.3 g/dL (6.3-8.2)
[2019-09-02] MEDS ORDERED: AZITHROMYCIN 500 MG TAB PO SCH (09:00)
[2019-09-02] MEDS: FUROSEMIDE 10 MG/ML 4 ML VIAL IV SCH ×2 (10:08→17:02)
[2019-09-02] MEDS: HEPARIN SODIUM,PORCINE 5,000 UNIT/ML 1 ML VIAL SQ SCH (10:09)
[2019-09-02] MEDS: guaiFENesin 600 MG TABLET.ER PO SCH (10:09)
[2019-09-02] MEDS: hydrALAZINE HCL 50 MG TAB PO SCH ×2 (10:09→17:01)
[2019-09-02] MEDS: ASPIRIN 81 MG PO SCH (10:16)
[2019-09-02] MEDS ORDERED: ISOSORBIDE MONONITRATE ER 30 MG TAB.ER.24H PO SCH (10:45)
--- NOTE | 2019-09-02 10:55 | PN ---
PROGRESS NOTE Mr. Lin is an 79-year-old male with a history of paroxysmal atrial fibrillation, history of hypertension, peripheral vascular disease, prior history of diastolic heart failure who presented with symptoms of progressive dyspnea. He continues to be dyspneic today, although better. He is denying any chest pain. He continued to be in sinus mechanism with first-degree AV block. He denies any dizziness or palpitation. He denies any nausea. He underwent an echocardiogram that revealed an ejection fraction of 25% to 30% with mild aortic regurgitation and moderate aortic stenosis with mild mitral and tricuspid regurgitation. He continues to be at this time on aspirin once a day, Coreg 6.5 mg twice a day, Lasix 40 mg IV q.8 hours, hydralazine 50 mg 3 times a day, losartan 150 mg daily. PHYSICAL EXAMINATION: Blood pressure running in the 130-150 with a heart rate in the 50s and 60s. LUNGS: With decreased air exchange, a few crackles. HEART: Regular rate and rhythm, S1, S2. No S3 with systolic murmur heard at the base. No diastolic murmur, no rub. ABDOMEN: Soft, nontender. EXTREMITIES: +1 to 2 edema. LAB DATA: Revealed BUN and creatinine of 49 and 1.5, potassium 4.5, hemoglobin of 12.1. That was done on 08/30. IMPRESSION: 1. Symptoms of congestive heart failure with evidence of systolic dysfunction by echocardiography. 2. Paroxysmal atrial fibrillation. 3. Probable pneumonia. 4. Moderate aortic stenosis. 5. History of hypertension. 6. Paroxysmal atrial fibrillation, continues to be in sinus mechanism. 7. History of chronic obstructive pulmonary disease. RECOMMENDATION: I would add isosorbide mononitrate to his regimen, change the dose of the losartan to a00 mg daily. Follow his renal function. Increase his level of activity and depending on his progress, further recommendation will be made. MMODL / IJN: [id number] /
[2019-09-02 16:19] VITALS: BP 156/58; PULSE 66; TEMP 97.6
--- NOTE | 2019-09-02 17:39 | P.DS ---
Providers Date of admission: 08/30/19 14:25 Expected date of discharge: 09/02/19 Attending physician: Alexandra Mitchell Consults: 08/30/19 14:26 Consult Physician Routine Consulting Provider: Lizzeth Rueda Consult Reason/Comments: CHF, pneumonia, troponin elevation Do you want consulting provider notified?: Yes 08/30/19 17:15 Consult Physician Routine Consulting Provider: Shubham Bain Consult Reason/Comments: pneumonia Do you want consulting provider notified?: Yes 09/02/19 14:04 Consult Physician Routine Consulting Provider: Lorin Shearer Consult Reason/Comments: acute kidney injury Do you want consulting provider notified?: Yes Primary care physician: Alexandra Stephen [place] [facility] Course: Diagnosis on discharge: #1 pneumonia in the posterior lower lobe with small effusions patient was admitted to telemetry floor he was started on IV antibiotic pulmonary consultation was requested. Covid 19 testing was negative #2 slight elevation in troponin level patient was started on IV heparin in the emergency room cardiology consultation was requested echocardiogram ordered, and revealed evidence of cardiomyopathy with ejection fraction of 25-30%, blood pressure medication were adjusted by cardiology. No further intervention was recommended at this time. #3 hyperkalemia on presentation with potassium at 5.31 dose of Kayexalate ordered #4 dehydration was acute kidney injury BUN 45 creatinine 1.71 on presentation patient was started on IV fluids for gentle hydration. Patient was started on IV Lasix yesterday by cardiology kidney function worsens significantly at this time would hold IV Lasix and monitor kidney function in a.m. #5 underlying history of hypertension #6 acute on chronic systolic congestive heart failure exacerbation patient received IV Lasix, he was switched to oral Lasix 40 mg by mouth twice daily at this time of discharge. He will be followed in our office for further evaluation. Hospital course: Sean Lin is an 79-year-old male who presented to [facility] emergency room with a one-week history of cough and shortness of breath he was evaluated in the emergency room chest x-ray revealed evidence of infiltrate suggestive of pneumonia, Covid 19 testing was negative, patient was started on IV antibiotic and was admitted to telemetry floor, pulmonary con sultation was requested, patient also had slight elevation in his troponin level, he was started on IV heparin in the emergency room, and cardiology consultation was requested. On 09/01/2019 patient was seen and examined on the medical floor he is alert and oriented 3 in no apparent distress, he is complaining of cough and shortness of breath otherwise he denies any complaints, there is no fever or chills no headache or dizziness no chest pain no nausea or vomiting no abdominal pain no diarrhea and no urinary symptoms. Vital examination reveals a temperature of 97.6 pulse 64 respiration 20 blood pressure 168/83 pulse ox 100% on 2 L nasal cannula. Laboratory data is significant for anemia with hemoglobin of 11.6 worsening renal function was BUN of 65 and creatinine 1.84 On 09/02/2019 patient was seen and examined on the telemetry floor, he is alert and oriented 3 in no distress, he is feeling better his cough and shortness of breath has improved, he is insisting on going home, he has not been cleared by cardiology yet, however patient wanted to go home he stated that he is afraid of staying in the hospital and catching Covid [address] Thomas was contacted, patient was cleared for discharge on Lasix 40 mg by mouth twice daily, will follow up in the office in few days will recheck labs to follow-up on kidney function. Follow-up with cardiology in 1-2 weeks Patient Condition at Discharge: Stable Plan - Discharge Summary Discharge Rx Participant: No New Discharge Prescriptions: New hydrALAZINE HCL [Apresoline] 50 mg PO TID tab Aspirin 81 mg PO DAILY chew Carvedilol [Coreg] 6.25 mg PO BID-W/MEALS tab Isosorbide Mononitrate ER [Imdur] 30 mg PO DAILY tab.er.24h Furosemide [Lasix] 40 mg PO BID 30 Days #60 tablet Continue Multivitamin [Men's Multi-Vitamin] 1 tab PO HS Potassium Chloride ER [K-Dur 20] 10 meq PO HS Telmisartan 80 mg PO HS Levothyroxine Sodium [Synthroid] 88 mcg PO HS Discontinued Hydroxychloroquine Sulfate [Plaquenil] 200 mg PO BID Furosemide [Lasix] 20 mg PO HS Discharge Medication List Multivitamin [Men's Multi-Vitamin] 1 tab PO HS 12/13/14 [History] Potassium Chloride ER [K-Dur 20] 10 meq PO HS 10/22/15 [History] Levothyroxine Sodium [Synthroid] 88 mcg PO HS 08/30/19 [History] Telmisartan 80 mg PO HS 08/30/19 [History] Aspirin 81 mg PO DAILY chew 09/02/19 [Rx] Carvedilol [Coreg] 6.25 mg PO BID-W/MEALS tab 09/02/19 [Rx] Furosemide [Lasix] 40 mg PO BID 30 Days #60 tablet 09/02/19 [Rx] Isosorbide Mononitrate ER [Imdur] 30 mg PO DAILY tab.er.24h 09/02/19 [Rx] hydrALAZINE HCL [Apresoline] 50 mg PO TID tab 09/02/19 [Rx] Follow up Appointment(s)/Referral(s): Alexandra Mitchell MD [Primary Care Provider] - 1-2 days
[2019-09-02] MEDS ORDERED: LOSARTAN 50 MG TAB PO SCH (21:00)
--- NOTE | 2019-09-04 09:59 | CDI ---
Documentation Clarification Form Date: 09/04/2019 09:43:28 AM From: Shanel Mata Phone: If you have a question about this query, please contact Kim Pandya Geography Instructor at [phone] between 8am and 5pm. Admit Date: 08/30/2019 02:25:00 PM Patient Name: Sean Lin Visit Number: [id number] Discharge Date: 09/02/2019 06:29:00 PM ATTENTION: The Clinical Documentation Specialists (CDI) and [facility] Coding Staff appreciate your assistance in clarifying documentation. Please respond to the clarification below the line at the bottom and electronically sign. The CDI & [facility] Coding staff will review the response and follow-up if needed. Please note: Queries are made part of the Legal Health Record. If you have any questions, please contact the author of this message via ITS. Dr. Alexandra Mitchell Myocardial infarction type II is documented in Cardiology consult and PN 08/31. Please clarify if patient had RI type II or was this ruled out. Patient History/Risk Factors: A/C CHF, cardiomyopathy, pulmonary HTN, Mitral/Aoritc insfficiency Troponin: .124, .099, .097 EKG Results: L/R heart block, cannot rule out septal infarct Treatment: IV Lasix, Coreg, Aspirin 81 mg Consult: Cardiology documents Type II RI For accurate documentation please indicate if patient had Type II RI and etiology or was this ruled out: Type II RI Type II RI ruled out Other please specify Anemia DKA CHF Arrhythmia Sepsis Shock Unable to determine Other Condition, please specify Type II RI MTDD
== END 2019-09-02 18:29 | disposition home or self-care (01) | DRG 280 ==
LOC: EC 12:25 → 3SCARD 14:25
PROVIDERS: ADMIT Internal Medicine; ATTEND Internal Medicine
DX: I13.0 Hypertensive heart and chronic kidney disease with heart failure and stage 1 through stage 4 chronic kidney disease, or unspecified chronic kidney disease (principal); I50.43 Acute on chronic combined systolic (congestive) and diastolic (congestive) heart failure; I21.A1 Myocardial infarction type 2; J18.9 Pneumonia, unspecified organism; J44.0 Chronic obstructive pulmonary disease with (acute) lower respiratory infection; N17.9 Acute kidney failure, unspecified; N18.9 Chronic kidney disease, unspecified; F17.210 Nicotine dependence, cigarettes, uncomplicated; I44.0 Atrioventricular block, first degree; D64.9 Anemia, unspecified; E03.9 Hypothyroidism, unspecified; E86.0 Dehydration; E87.5 Hyperkalemia; I08.0 Rheumatic disorders of both mitral and aortic valves; I27.20 Pulmonary hypertension, unspecified; I42.9 Cardiomyopathy, unspecified; I45.10 Unspecified right bundle-branch block; I48.0 Paroxysmal atrial fibrillation; I73.9 Peripheral vascular disease, unspecified; Z20.828 Contact with and (suspected) exposure to other viral communicable diseases; Z79.890 Hormone replacement therapy; Z79.899 Other long term (current) drug therapy; Z80.42 Family history of malignant neoplasm of prostate; Z80.8 Family history of malignant neoplasm of other organs or systems; Z85.828 Personal history of other malignant neoplasm of skin; Z80.1 Family history of malignant neoplasm of trachea, bronchus and lung; Z80.49 Family history of malignant neoplasm of other genital organs; Z88.2 Allergy status to sulfonamides
CPT/HCPCS: 36415; 71046; 80048; 80053; 83605; 83735; 83880; 84484; 85025; 85610; 85730; 87040; 87635; 93005; 93306; 96365; 96367; 96375; 96376; 99291

== ENCOUNTER 2019-09-09 16:06 | Inpatient (IN) | payer MEDICARE ==
--- NOTE | 2019-09-09 16:39 | ED ---
SOB HPI - General Chief Complaint: Shortness of Breath Stated Complaint: CARMELO/sent by pcp Time Seen by Provider: 09/09/19 16:20 Source: patient, RN notes reviewed, old records reviewed Mode of arrival: EMS Limitations: physical limitation - History of Present Illness Initial Comments: This is an 79-year-old male presented today for evaluation of shortness breath with cough congestion. Patient admits recent hospitalization for pneumonia and wheezes exactly worse. Although does deny fever. Patient has no recent travel history sick contacts no known change in medications. Patient's in no distress here in the ER, doesn't some depression to recent loss of as well MD Complaint: shortness of breath, cough, "asthma attack", anxiety -: days(s) Severity: moderate Severity scale (1-10): 7 Quality: aching Consistency: constant Improves With: nothing Worsens With: exertion Known History Of: COPD, congestive heart failure, recurrent pneumonia Context: recent URI Associated Symptoms: chest pain, cough, sputum production Treatments Prior to Arrival: none - Related Data Home Medications Medication Instructions Recorded Confirmed Multivitamin [Men's Multi-Vitamin] 1 tab PO HS 12/13/14 09/09/19 Levothyroxine Sodium [Synthroid] 88 mcg PO HS 08/30/19 09/09/19 Telmisartan 80 mg PO HS 08/30/19 09/09/19 Cefuroxime Axetil [Ceftin] 500 mg PO BID 09/09/19 09/09/19 Ferrous Sulfate [Iron (65 MG 325 mg PO DAILY 09/09/19 09/09/19 Elemental)] Previous Rx's Medication Instructions Recorded Aspirin 81 mg PO DAILY chew 09/02/19 Isosorbide Mononitrate ER [Imdur] 30 mg PO DAILY tab.er.24h 09/02/19 Albuterol Inhaler [Ventolin Hfa 2 puff INHALATION RT-QID puff 09/16/19 Inhaler] Furosemide [Lasix] 40 mg PO BID@0900,1600 tab 09/16/19 Nitroglycerin Sl Tabs [Nitrostat] 0.4 mg SUBLINGUAL Q5M PRN tab 09/16/19 hydrALAZINE HCL [Apresoline] 75 mg PO TID tab 09/16/19 predniSONE [Deltasone] 40 mg PO DAILY tab 05/04/20 Allergies Allergy/AdvReac Type Severity Reaction Status Date / Time Sulfa (Sulfonamide Allergy Rash/Hives Verified 09/09/19 19:37 Antibiotics) Review of Systems ROS Statement: Those systems with pertinent positive or pertinent negative responses have been documented in the HPI. ROS Other: All systems not noted in ROS Statement are negative. Past Medical History Past Medical History: Atrial Fibrillation, Blood Disorder, COPD, GERD/Reflux, GI Bleed, Hypertension, Thyroid Disorder Additional Past Medical History / Comment(s): ANEMIA, HIATAL HERNIA (PER EGD) ar rhythmia, skin cancer - RUE, LUE, R episcopal, Nose (sees Dr. Cortez) PAST RT LEG ULCERS, chf History of Any Multi-Drug Resistant Organisms: VRE Date of last positivie culture/infection: 02/24/15 MDRO Source:: Right leg wound Past Surgical History: Adenoidectomy, Tonsillectomy Additional Past Surgical History / Comment(s): hemorrhoidectomy, tennis elbow, EGD. Past Anesthesia/Blood Transfusion Reactions: No Reported Reaction Past Psychological History: No Psychological Hx Reported Smoking Status: Current every day smoker Past Alcohol Use History: None Reported Past Drug Use History: None Reported - Past Family History Mother Family Medical History: No Reported History Daughter(s) History Unknown: Yes Family Medical History: Cancer Additional Family Medical History / Comment(s): uterine/lung/brain CA - current terminal Father History Unknown: Yes Family Medical History: Cancer Additional Family Medical History / Comment(s): prostate CA - from General Exam Limitations: physical limitation General appearance: alert, in no apparent distress, anxious Head exam: Present: atraumatic, normocephalic, normal inspection Eye exam: Present: normal appearance, PERRL, EOMI. Absent: scleral icterus, conjunctival injection, periorbital swelling ENT exam: Present: normal exam, mucous membranes moist Neck exam: Present: normal inspection. Absent: tenderness, meningismus, lymphadenopathy Respiratory exam: Present: wheezes, decreased breath sounds, prolonged expiratory. Absent: respiratory distress, rales, rhonchi, stridor Cardiovascular Exam: Present: normal rhythm, normal heart sounds. Absent: systolic murmur, diastolic murmur, rubs, gallop, clicks GI/Abdominal exam: Present: soft, normal bowel sounds. Absent: distended, tenderness, guarding, rebound, rigid Extremities exam: Present: normal inspection, full ROM, normal capillary refill. Absent: tenderness, pedal edema, joint swelling, calf tenderness Back exam: Present: normal inspection Neurological exam: Present: alert, oriented X3, CN II-XII intact Psychiatric exam: Present: normal affect, normal mood Skin exam: Present: warm, dry, intact, normal color. Absent: rash Course Vital Signs 09/09/19 09/09/19 09/09/19 16:12 16:45 17:23 Temperature 97.7 F Pulse Rate 47 L 44 L Pulse Rate [ 46 L Behavior Analyst ] Respiratory 20 20 20 Rate Blood Pressure 147/94 145/62 O2 Sat by Pulse 97 98 Oximetry 09/09/19 18:55 Temperature 98.6 F Pulse Rate 48 L Pulse Rate [ Behavior Analyst ] Respiratory 20 Rate Blood Pressure 148/80 O2 Sat by Pulse 98 Oximetry - Reevaluation(s) Reevaluation #1: Current inpatient hospitalization are reviewed Patient remains bradycardic but normal blood pressure Patient denying any chest pain or shortness of breath currently elevated troponin Patient informed of results questions are answered - Consultations Consultation #1: spoke w DR Mitchell agrees to admission Medical Decision Making - Medical Decision Making 79 female DEL with multifactorial shortness of breath including bradycardia elevated troponin no change in x-ray patient is underlying COPD underlying CHF will admit for further evaluation management - Lab Data Result diagrams: 09/16/19 06:46 09/16/19 06:46 Lab Results 09/09/19 09/09/19 09/09/19 Range/Units 17:05 17:05 17:05 WBC 10.6 (3.8-10.6) k/uL RBC 4.32 (4.30-5.90) m/uL Hgb 12.0 L (13.0-17.5) gm/dL Hct 38.1 L (39.0-53.0) % MCV 88.2 (80.0-100.0) fL MCH 27.8 (25.0-35.0) pg MCHC 31.5 (31.0-37.0) g/dL RDW 15.3 (11.5-15.5) % Plt Count 285 (150-450) k/uL Neutrophils % 82 % Lymphocytes % 6 % Monocytes % 7 % Eosinophils % 3 % Basophils % 0 % Neutrophils # 8.7 H (1.3-7.7) k/uL Lymphocytes # 0.7 L (1.0-4.8) k/uL Monocytes # 0.8 (0-1.0) k/uL Eosinophils # 0.3 (0-0.7) k/uL Basophils # 0.0 (0-0.2) k/uL PT 9.7 (9.0-12.0) sec INR 0.9 (<1.2) APTT 26.1 (22.0-30.0) sec Sodium 135 L (137-145) mmol/L Potassium 4.9 (3.5-5.1) mmol/L Chloride 103 (98-107) mmol/L Carbon Dioxide 24 (22-30) mmol/L Anion Gap 8 mmol/L BUN 83 H (9-20) mg/dL Creatinine 2.34 H (0.66-1.25) mg/dL Est GFR (CKD-EPI)AfAm 29 (>60 ml/min/1.73 sqM) Est GFR (CKD-EPI)NonAf 25 (>60 ml/min/1.73 sqM) Glucose 103 H (74-99) mg/dL Plasma Lactic Acid Nacho (0.7-2.0) mmol/L Calcium 8.9 (8.4-10.2) mg/dL Magnesium 2.7 H (1.6-2.3) mg/dL Total Bilirubin 0.4 (0.2-1.3) mg/dL AST 32 (17-59) U/L ALT 31 (4-49) U/L Alkaline Phosphatase 84 (38-126) U/L Total Creatine Kinase (55-170) U/L CK-MB (CK-2) (0.0-2.4) ng/mL CK-MB (CK-2) Rel Index Troponin I (0.000-0.034) ng/mL C-Reactive Protein 18.5 H (<10.0) mg/L Total Protein 6.6 (6.3-8.2) g/dL Albumin 3.7 (3.5-5.0) g/dL Coronavirus (PCR) (Not Detectd) 09/09/19 09/09/19 09/09/19 Range/Units 17:05 17:05 17:05 WBC (3.8-10.6) k/uL RBC (4.30-5.90) m/uL Hgb (13.0-17.5) gm/dL Hct (39.0-53.0) % MCV (80.0-100.0) fL MCH (25.0-35.0) pg MCHC (31.0-37.0) g/dL RDW (11.5-15.5) % Plt Count (150-450) k/uL Neutrophils % % Lymphocytes % % Monocytes % % Eosinophils % % Basophils % % Neutrophils # (1.3-7.7) k/uL Lymphocytes # (1.0-4.8) k/uL Monocytes # (0-1.0) k/uL Eosinophils # (0-0.7) k/uL Basophils # (0-0.2) k/uL PT (9.0-12.0) sec INR (<1.2) APTT (22.0-30.0) sec Sodium (137-145) mmol/L Potassium (3.5-5.1) mmol/L Chloride (98-107) mmol/L Carbon Dioxide (22-30) mmol/L Anion Gap mmol/L BUN (9-20) mg/dL Creatinine (0.66-1.25) mg/dL Est GFR (CKD-EPI)AfAm (>60 ml/min/1.73 sqM) Est GFR (CKD-EPI)NonAf (>60 ml/min/1.73 sqM) Glucose (74-99) mg/dL Plasma Lactic Acid Nacho 0.9 (0.7-2.0) mmol/L Calcium (8.4-10.2) mg/dL Magnesium (1.6-2.3) mg/dL Total Bilirubin (0.2-1.3) mg/dL AST (17-59) U/L ALT (4-49) U/L Alkaline Phosphatase (38-126) U/L Total Creatine Kinase 57 (55-170) U/L CK-MB (CK-2) 2.5 H (0.0-2.4) ng/mL CK-MB (CK-2) Rel Index 4.4 Troponin I 0.104 H* (0.000-0.034) ng/mL C-Reactive Protein (<10.0) mg/L Total Protein (6.3-8.2) g/dL Albumin (3.5-5.0) g/dL Coronavirus (PCR) Not Detected (Not Detectd) - EKG Data -: EKG Interpreted by Me (EKG shows sinus rhythm of 46, QRS 156, QTc 470) - Radiology Data Radiology results: report reviewed (chest x-ray is negative for acute disease), image reviewed Critical Care Time Critical Care Time: Yes Total Critical Care Time: 31 Disposition Clinical Impression: Congestive heart failure, Acute on chronic renal failure, Fever, Dyspnea, Acute exacerbation of chronic obstructive pulmonary disease, Bradycardia, Elevated troponin, Renal insufficiency Disposition: ADMITTED IP TO THIS [facility] Condition: Serious Is patient prescribed a controlled substance at d/c from ED?: No
--- NOTE | 2019-09-09 17:21 | XR ---
EXAMINATION TYPE: XR chest 1V portable DATE OF EXAM: 09/09/2019 COMPARISON: Chest x-ray 10 days ago. HISTORY: Shortness of breath. TECHNIQUE: Single AP portable frontal upright view of the chest is obtained. FINDINGS: There is chronic parenchymal change bilaterally without suspicious focal air space opacity, pleural effusion, or pneumothorax seen. The cardiac silhouette size remains enlarged. Fairly advanced Degenerative change bilateral glenohumeral joints is redemonstrated. IMPRESSION: Chronic changes and cardiomegaly without new suspicious acute pulmonary process.
[2019-09-09 17:27] LABS: Basophils % (A) 0 %; Eosinophils # (A) 0.3 k/uL (0-0.7); Eosinophils % (A) 3 %; HCT 38.1 % (39.0-53.0); Lymphocytes # (A) 0.7 k/uL (1.0-4.8); Lymphocytes % (A) 6 %; MCH 27.8 pg (25.0-35.0); MCHC 31.5 g/dL (31.0-37.0); MCV 88.2 fL (80.0-100.0); Mean Platelet Volume 9.1; Monocytes # (A) 0.8 k/uL (0-1.0); Monocytes % (A) 7 %; Neutrophils # (A) 8.7 k/uL (1.3-7.7); Neutrophils % (A) 82 %; Platelet Count 285 k/uL (150-450); RBC 4.32 m/uL (4.30-5.90); RDW 15.3 % (11.5-15.5); WBC 10.6 k/uL (3.8-10.6)
[2019-09-09 17:35] LABS: Albumin 3.7 g/dL (3.5-5.0); C Reactive Protein 18.5 mg/L (<10.0); Calcium 8.9 mg/dL (8.4-10.2); Magnesium 2.7 mg/dL (1.6-2.3); Potassium 4.9 mmol/L (3.5-5.1); Total Bilirubin 0.4 mg/dL (0.2-1.3); Total Protein 6.6 g/dL (6.3-8.2)
[2019-09-09 17:40] LABS: INR 0.9 (<1.2); Partial Thromboplastin Time 26.1 sec (22.0-30.0); Prothrombin Time 9.7 sec (9.0-12.0)
[2019-09-09] MEDS ORDERED: SODIUM CHLORIDE 0.9% 1,000 ML IV STA ×2 (18:13)
[2019-09-09] MEDS ORDERED: methylPREDNISolone SOD SUCCI 125 MG/2 ML VIAL IV STA (18:13)
[2019-09-09] MEDS: ALBUTEROL HFA INHALER INHALATION SCH (19:38)
[2019-09-09] MEDS: TIOTROPIUM 18 MCG/PUFF INHALER INHALATION SCH (19:49)
[2019-09-09] MEDS ORDERED: IPRATROPIUM-ALBUTEROL 3 ML NEB INHALATION SCH (20:00)
[2019-09-09] MEDS ORDERED: POTASSIUM CHLORIDE ER 10 MEQ TAB.ER.PRT PO SCH (22:30)
[2019-09-09] MEDS ORDERED: CARVEDILOL 6.25 MG TAB PO SCH (22:30)
[2019-09-09] MEDS: hydrALAZINE HCL 50 MG TAB PO SCH (23:22)
[2019-09-09] MEDS: MULTIVITAMINS, THERA 1 EACH TAB PO SCH (23:22)
[2019-09-09] MEDS: LOSARTAN 50 MG TAB PO SCH (23:22)
[2019-09-09] MEDS: methylPREDNISolone SOD SUCCI 125 MG/2 ML VIAL IV SCH (23:23)
[2019-09-09] MEDS: LEVOTHYROXINE 88 MCG TAB PO SCH (23:23)
[2019-09-09] MEDS: CEFDINIR 300 MG CAP PO SCH (23:23)
[2019-09-09] MEDS: FUROSEMIDE 40 MG TAB PO SCH (23:23)
[2019-09-10 03:20] LABS: Troponin I 0.104 ng/mL (0.000-0.034)
[2019-09-10 03:27] LABS: Creatine Kinase MB 2.5 ng/mL (0.0-2.4)
[2019-09-10 06:26] LABS: Glucose,Whole Blood 166 mg/dL (75-99)
[2019-09-10] MEDS ORDERED: NITROGLYCERIN SL TABS 0.4 MG TAB SUBLINGUAL PRN (06:44)
[2019-09-10] MEDS: methylPREDNISolone SOD SUCCI 125 MG/2 ML VIAL IV SCH ×4 (07:01→23:06)
[2019-09-10] MEDS: INSULIN ASPART (NovoLOG) 100 UNIT/ML VIAL SQ SCH ×4 (07:02→23:06)
[2019-09-10] MEDS: ALBUTEROL HFA INHALER INHALATION SCH ×4 (07:37→19:43)
[2019-09-10] MEDS: TIOTROPIUM 18 MCG/PUFF INHALER INHALATION SCH (07:37)
[2019-09-10] MEDS: ENOXAPARIN 40 MG/0.4 ML SYRINGE SQ SCH (08:11)
[2019-09-10] MEDS: FERROUS SULFATE 325 MG TAB PO SCH (08:11)
[2019-09-10] MEDS: FUROSEMIDE 40 MG TAB PO SCH (08:11)
[2019-09-10] MEDS: ISOSORBIDE MONONITRATE ER 30 MG TAB.ER.24H PO SCH (08:11)
[2019-09-10] MEDS: CEFDINIR 300 MG CAP PO SCH (08:11)
[2019-09-10] MEDS: ASPIRIN 81 MG PO SCH ×2 (08:11→08:27)
[2019-09-10] MEDS: hydrALAZINE HCL 50 MG TAB PO SCH ×3 (08:11→23:07)
[2019-09-10 08:37] LABS: Calcium 8.7 mg/dL (8.4-10.2); Potassium 5.3 mmol/L (3.5-5.1)
[2019-09-10 11:34] LABS: Glucose,Whole Blood 146 mg/dL (75-99)
--- NOTE | 2019-09-10 12:51 | P.NPCON ---
History of Present Illness - Reason for Consult acute renal failure, chronic renal failure - History of Present Illness reason for consultation: Acute kidney injury on chronic kidney disease History of present illness: Patient is a 79-year-old male seen in renal consultation for acute kidney injury on chronic kidney disease. From prior records it appears patient has chronic kidney disease stage III with baseline creatinine near 1.5. Patient denies following with a make up man outpatient. Creatinine on admission was 2.34 and is up at 2.55 today. Patient presented to the hospital with shortness of breath and cough. Patient's chest x-ray wasnot suggestive of fluid overload. He's currently receiving normal saline at 1 30 mL an hour. He denies any fever. He does admit to edema in his lower extremity. He has been voiding. No hematuria or dysuria. No history of diabetes. Denies family history of renal disease. Hemodynamically stable. No vomiting or diarrhea. Oral intake is fair. Vital signs are stable. General: The patient appeared well nourished and normally developed. HEENT: Head exam is unremarkable. Neck is without jugular venous distension. LUNGS: Lungs are clear to auscultation and percussion. Breath sounds decreased. HEART: Rate and Rhythm are regular. ABDOMEN: Nontender, nondistended. EXTREMITITES: 2+ edema. Past Medical History Past Medical History: Atrial Fibrillation, Blood Disorder, COPD, GERD/Reflux, GI Bleed, Hypertension, Thyroid Disorder Additional Past Medical History / Comment(s): ANEMIA, HIATAL HERNIA (PER EGD) arrhythmia, skin cancer - RUE, LUE, R rastafari, Nose (sees Dr. Cortez) PAST RT LEG ULCERS, chf History of Any Multi-Drug Resistant Organisms: VRE Date of last positivie culture/infection: 02/24/15 MDRO Source:: Right leg wound Past Surgical History: Adenoidectomy, Tonsillectomy Additional Past Surgical History / Comment(s): hemorrhoidectomy, tennis elbow, EGD.CATRACT SURGERY Past Anesthesia/Blood Transfusion Reactions: No Reported Reaction Past Psychological History: No Psychological Hx Reported Smoking Status: Current some day smoker Past Alcohol Use History: None Reported Additional Past Alcohol Use History / Comment(s): STARTED SMOKIN G AT AGE 17, TRYING TO QUIT NOW 1 CIGARETTE A DAY RECENTLY Past Drug Use History: None Reported - Past Family History Mother Family Medical History: No Reported History Daughter(s) History Unknown: Yes Family Medical History: Cancer Additional Family Medical History / Comment(s): uterine/lung/brain CA - current terminal Father History Unknown: Yes Family Medical History: Cancer Additional Family Medical History / Comment(s): prostate CA - from Medications and Allergies Home Medications Medication Instructions Recorded Confirmed Type Multivitamin [Men's Multi-Vitamin] 1 tab PO HS 12/13/14 09/09/19 History Potassium Chloride ER [K-Dur 20] 10 meq PO HS 10/22/15 09/09/19 History Levothyroxine Sodium [Synthroid] 88 mcg PO HS 08/30/19 09/09/19 History Telmisartan 80 mg PO HS 08/30/19 09/09/19 History Aspirin 81 mg PO DAILY chew 09/02/19 09/09/19 Rx Carvedilol [Coreg] 6.25 mg PO BID-W/MEALS tab 09/02/19 09/09/19 Rx Furosemide [Lasix] 40 mg PO BID 30 Days #60 tablet 09/02/19 09/09/19 Rx Isosorbide Mononitrate ER [Imdur] 30 mg PO DAILY tab.er.24h 09/02/19 09/09/19 Rx hydrALAZINE HCL [Apresoline] 50 mg PO TID tab 09/02/19 09/09/19 Rx Cefuroxime Axetil [Ceftin] 500 mg PO BID 09/09/19 09/09/19 History Ferrous Sulfate [Feosol] 325 mg PO DAILY 09/09/19 09/09/19 History Allergies Allergy/AdvReac Type Severity Reaction Status Date / Time Sulfa (Sulfonamide Allergy Rash/Hives Verified 09/09/19 19:37 Antibiotics) Physical Exam Vitals: Vital Signs Temp Pulse Pulse Resp BP BP Pulse Ox 09/10/19 12:00 97.9 F 60 20 148/72 97 09/10/19 08:00 98.1 F 42 L 20 153/65 97 09/10/19 04:00 97.9 F 43 L 18 107/53 95 09/10/19 00:00 98.2 F 46 L 18 151/70 97 09/09/19 20:16 98.3 F 49 L 16 162/70 96 09/09/19 20:00 98.3 F 49 L 18 162/70 96 09/09/19 19:04 98.7 F 98 09/09/19 18:55 98.6 F 48 L 20 148/80 98 09/09/19 17:23 44 L 20 145/62 98 09/09/19 16:45 46 L 20 09/09/19 16:12 97.7 F 47 L 20 147/94 97 Intake and Output 09/09/19 09/10/19 09/10/19 22:59 06:59 14:59 Intake Total 120 Output Total 450 200 Balance -450 -80 Intake: Oral 120 Output: Urine 450 200 Other: Voiding Method Toilet Toilet Toilet Urinal Urinal Urinal # Voids 1 0 Weight 88.451 kg 90.2 kg Results - Lab Results Most recent lab results Calcium 8.7 mg/dL (8.4-10.2) 09/10/19 07:18 Magnesium 2.7 mg/dL (1.6-2.3) H 09/09/19 17:05 09/09/19 17:05 09/10/19 07:18 Assessment and Plan Plan: assessment: 1. Acute kidney injury mostly prerenal secondary to cardiorenal syndrome. Creatinine was 2.34 on admission and is 2.55 today. 2. Chronic kidney disease stage III with baseline creatinine near 1.5 secondary to nephrosclerosis. 3. Volume overload. 4. Pneumonia maintained on antibiotics. COVID-19 testing negative. 5. Acute on chronic systolic CHF with ejection fraction of 25-30% with moderate aortic stenosis. Plan: I will change Lasix to 40 mg IV twice daily. Hep-Lock IV fluids. Check urinalysis. Check renal ultrasound. Avoid nephrotoxins. Continue losartan for now as blood pressure is stable. Repeat electrolytes in the morning. Thank you for the consultation. I will continue to follow the patient during his hospital stay.
[2019-09-10] MEDS: FUROSEMIDE 10 MG/ML 4 ML VIAL IV SCH ×2 (14:45→23:06)
[2019-09-10 15:18] LABS: Appearance,Urine Clear (Clear); Bilirubin,Urine Negative (Negative); Blood,Urine Negative (Negative); Color,Urine Yellow; Glucose,Urine (UA) Negative (Negative); Ketones,Urine Negative (Negative); Leukocyte Esterase,Urine Negative (Negative); Nitrite,Urine Negative (Negative); Protein,Urine Trace (Negative); Specific Gravity,Urine 1.013 (1.001-1.035); Urobilinogen,Urine <2.0 mg/dL (<2.0)
--- NOTE | 2019-09-10 16:18 | US ---
EXAMINATION TYPE: US kidneys/renal and bladder DATE OF EXAM: 09/10/2019 COMPARISON: NONE CLINICAL HISTORY: tressa. EXAM MEASUREMENTS: Right Kidney: 10.1 x 5.5 x 5.2 cm Left Kidney: 11.0 x 5.4 x 4.0 cm Right Kidney: No hydronephrosis or masses seen. Loss of corticomedullary differentiation. Shadowing e chogenic foci visualized measuring 0.7 cm Left Kidney: No hydronephrosis. Two hypoechoic, probable cystic areas visualized, largest measuring 1 .2 cm lower pole Bladder: Not distended Bilateral Jets seen: No There is no evidence for hydronephrosis at this point in time. The urinary bladder is anechoic. Bilateral ureteral jets are seen. IMPRESSION: 1. Nonobstructing right renal stone. 2. Cysts left kidney.
[2019-09-10 16:43] LABS: Glucose,Whole Blood 163 mg/dL (75-99)
[2019-09-10] MEDS ORDERED: NICOTINE 14MG/24HR PATCH TRANSDERM STA (17:14)
--- NOTE | 2019-09-10 18:15 | P.HPIM ---
History of Present Illness H&P Date: 09/10/19 Chief Complaint: Shortness of breath Sean Lin is an 79-year-old male, who presented to [facility] emergency room with a chief complaint of worsening shortness of breath. He was evaluated in the emergency room, preliminary diagnosis in the emergency room was acute on chronic congestive heart failure exacerbation, acute on chronic renal failure, and acute exacerbation of chronic obstructive pulmonary disease, he was started on IV antibiotic, IV steroids, and IV diuretics and was admitted to telemetry floor. Patient was recently admitted to the hospital with similar symptoms, at that time he was diagnosed with acute congestive heart failure exacerbation and evidence of cardiomyopathy, this is a new diagnosis for him, he was started on on diuretics he improved he was discharged home, however his kidney function has worsened since last admission. Nephrology consultation was requested for evaluation. Past Medical History Past Medical History: Atrial Fibrillation, Blood Disorder, COPD, GERD/Reflux, GI Bleed, Hypertension, Thyroid Disorder Additional Past Medical History / Comment(s): ANEMIA, HIATAL HERNIA (PER EGD) arrhythmia, skin cancer - RUE, LUE, R presybeterian, Nose (sees Dr. Cortez) PAST RT LEG ULCERS, chf History of Any Multi-Drug Resistant Organisms: VRE Date of last positivie culture/infection: 02/24/15 MDRO Source:: Right leg wound Past Surgical History: Adenoidectomy, Tonsillectomy Additional Past Surgical History / Comment(s): hemorrhoidectomy, tennis elbow, EGD.CATRACT SURGERY Past Anesthesia/Blood Transfusion Reactions: No Reported Reaction Past Psychological History: No Psychological Hx Reported Smoking Status: Current some day smoker Past Alcohol Use History: None Reported Additional Past Alcohol Use History / Comment(s): STARTED SMOKIN G AT AGE 17, TRYING TO QUIT NOW 1 CIGARETTE A DAY RECENTLY Past Drug Use History: None Reported - Past Family History Mother Family Medical History: No Reported History Daughter(s) History Unknown: Yes Family Medical History: Cancer Additional Family Medical History / Comment(s): uterine/lung/brain CA - current terminal Father History Unknown: Yes Family Medical History: Cancer Additional Family Medical History / Comment(s): prostate CA - from Medications and Allergies Home Medications Medication Instructions Recorded Confirmed Type Multivitamin [Men's Multi-Vitamin] 1 tab PO HS 12/13/14 09/09/19 History Potassium Chloride ER [K-Dur 20] 10 meq PO HS 10/22/15 09/09/19 History Levothyroxine Sodium [Synthroid] 88 mcg PO HS 08/30/19 09/09/19 History Telmisartan 80 mg PO HS 08/30/19 09/09/19 History Aspirin 81 mg PO DAILY chew 09/02/19 09/09/19 Rx Carvedilol [Coreg] 6.25 mg PO BID-W/MEALS tab 09/02/19 09/09/19 Rx Furosemide [Lasix] 40 mg PO BID 30 Days #60 tablet 09/02/19 09/09/19 Rx Isosorbide Mononitrate ER [Imdur] 30 mg PO DAILY tab.er.24h 09/02/19 09/09/19 Rx hydrALAZINE HCL [Apresoline] 50 mg PO TID tab 09/02/19 09/09/19 Rx Cefuroxime Axetil [Ceftin] 500 mg PO BID 09/09/19 09/09/19 History Ferrous Sulfate [Feosol] 325 mg PO DAILY 09/09/19 09/09/19 History Allergies Allergy/AdvReac Type Severity Reaction Status Date / Time Sulfa (Sulfonamide Allergy Rash/Hives Verified 09/09/19 19:37 Antibiotics) Physical Exam Vitals: Vital Signs Temp Pulse Pulse Resp BP BP Pulse Ox 09/10/19 15:38 95 09/10/19 15:33 98 F 41 L 20 136/64 93 L 09/10/19 12:00 97.9 F 60 20 148/72 97 09/10/19 08:00 98.1 F 42 L 20 153/65 97 09/10/19 04:00 97.9 F 43 L 18 107/53 95 09/10/19 00:00 98.2 F 46 L 18 151/70 97 09/09/19 20:16 98.3 F 49 L 16 162/70 96 09/09/19 20:00 98.3 F 49 L 18 162/70 96 09/09/19 19:04 98.7 F 98 09/09/19 18:55 98.6 F 48 L 20 148/80 98 Intake and Output 09/10/19 09/10/19 09/10/19 06:59 14:59 22:59 Intake Total 360 240 Output Total 450 200 Balance -450 160 240 Intake: Oral 360 240 Output: Urine 450 200 Other: Voiding Method Toilet Toilet Urinal Urinal # Voids 1 1 Weight 90.2 kg In general patient is alert and oriented 3 in no apparent distress HEENT head normocephalic and atraumatic Neck is supple no JVD no goiter no lymphadenopathy Chest exam reveals a few scattered crackles bilaterally no wheezing Cardiac exam reveals regular heart sounds S1 and S2 no gallops no murmurs Abdomen is soft nontender no organomegaly with normal bowel sounds Extremity exam reveals 2+ edema no cyanosis or clubbing Neurological examination reveals no gross focal deficit Results CBC & Chem 7: 09/09/19 17:05 09/10/19 07:18 Labs: Abnormal Lab Results - Last 24 Hours (Table) 09/09/19 09/10/19 09/10/19 Range/Units 17:05 06:25 07:18 Potassium (3.5-5.1) mmol/L BUN (9-20) mg/dL Creatinine (0.66-1.25) mg/dL Glucose (74-99) mg/dL POC Glucose (mg/dL) 166 H (75-99) mg/dL CK-MB (CK-2) 2.5 H (0.0-2.4) ng/mL Troponin I 0.104 H* 0.114 H* (0.000-0.034) ng/mL Urine Protein (Negative) 09/10/19 09/10/19 09/10/19 Range/Units 07:18 11:31 12:53 Potassium 5.3 H (3.5-5.1) mmol/L BUN 84 H (9-20) mg/dL Creatinine 2.55 H (0.66-1.25) mg/dL Glucose 160 H (74-99) mg/dL POC Glucose (mg/dL) 146 H (75-99) mg/dL CK-MB (CK-2) (0.0-2.4) ng/mL Troponin I 0.167 H* (0.000-0.034) ng/mL Urine Protein (Negative) 09/10/19 09/10/19 Range/Units 16:39 Unknown Potassium (3.5-5.1) mmol/L BUN (9-20) mg/dL Creatinine (0.66-1.25) mg/dL Glucose (74-99) mg/dL POC Glucose (mg/dL) 163 H (75-99) mg/dL CK-MB (CK-2) (0.0-2.4) ng/mL Troponin I (0.000-0.034) ng/mL Urine Protein Trace H (Negative) Thrombosis Risk Factor Assmnt - Choose All That Apply Each Risk Factor Represents 3 Points: Age 75 years or older Thrombosis Risk Factor Assessment Total Risk Factor Score: 3 Thrombosis Risk Factor Assessment Level: Moderate Risk Assessment and Plan Assessment: 1. Acute on chronic systolic congestive heart failure exacerbation 2. Acute kidney injury, on top of chronic kidney disease stage III, and evidence of volume overload 3. Possible pneumonia patient presenting with low-grade fever and cough and shortness of breath, chest x-ray at this time does not reveal any clear infiltrate 4. Mild elevation in troponin levels, no clear evidence of myocardial infarct ion, cardiology consultation requested 5. Bradycardia cardiology consultation was requested, Coreg is on hold at this time. Medication and labs were reviewed please see orders Cardiology and nephrology consultation requested Recheck labs in a.m. Will follow closely
[2019-09-10] MEDS ORDERED: AZITHROMYCIN 500 MG in SODIUM CHLORIDE 0.9% 250 ML IVPB SCH (19:00)
[2019-09-10 20:13] LABS: Glucose,Whole Blood 192 mg/dL (75-99)
[2019-09-10] MEDS: MULTIVITAMINS, THERA 1 EACH TAB PO SCH (23:07)
[2019-09-10] MEDS: LEVOTHYROXINE 88 MCG TAB PO SCH (23:07)
[2019-09-10] MEDS: LOSARTAN 50 MG TAB PO SCH (23:07)
[2019-09-11 06:05] LABS: Glucose,Whole Blood 152 mg/dL (75-99)
[2019-09-11 06:49] LABS: Basophils % (A) 0 %; Eosinophils % (A) 0 %; HCT 35.1 % (39.0-53.0); HGB 10.9 gm/dL (13.0-17.5); Hypochromasia Moderate; Lymphocytes # (A) 0.2 k/uL (1.0-4.8); Lymphocytes % (A) 1 %; MCH 28.2 pg (25.0-35.0); MCHC 31.1 g/dL (31.0-37.0); MCV 90.8 fL (80.0-100.0); Mean Platelet Volume 9.2; Monocytes # (A) 0.3 k/uL (0-1.0); Monocytes % (A) 2 %; Neutrophils # (A) 16.5 k/uL (1.3-7.7); Neutrophils % (A) 97 %; Platelet Count 237 k/uL (150-450); RBC 3.87 m/uL (4.30-5.90); RDW 15.3 % (11.5-15.5); WBC 17.1 k/uL (3.8-10.6)
[2019-09-11] MEDS: methylPREDNISolone SOD SUCCI 125 MG/2 ML VIAL IV SCH ×2 (06:54→12:00)
[2019-09-11] MEDS: INSULIN ASPART (NovoLOG) 100 UNIT/ML VIAL SQ SCH ×4 (06:55→22:33)
[2019-09-11 07:10] LABS: Albumin 3.2 g/dL (3.5-5.0); Calcium 8.6 mg/dL (8.4-10.2); Magnesium 2.6 mg/dL (1.6-2.3); Potassium 5.3 mmol/L (3.5-5.1); Total Bilirubin 0.1 mg/dL (0.2-1.3); Total Protein 5.8 g/dL (6.3-8.2)
[2019-09-11] MEDS: ALBUTEROL HFA INHALER INHALATION SCH ×4 (07:50→20:53)
[2019-09-11] MEDS: TIOTROPIUM 18 MCG/PUFF INHALER INHALATION SCH (07:50)
[2019-09-11] MEDS: hydrALAZINE HCL 50 MG TAB PO SCH ×3 (08:49→22:34)
[2019-09-11] MEDS: FUROSEMIDE 10 MG/ML 4 ML VIAL IV SCH ×2 (08:49→22:33)
[2019-09-11] MEDS: ASPIRIN 81 MG PO SCH (08:49)
[2019-09-11] MEDS: FERROUS SULFATE 325 MG TAB PO SCH (08:49)
[2019-09-11] MEDS: ISOSORBIDE MONONITRATE ER 30 MG TAB.ER.24H PO SCH (08:49)
[2019-09-11] MEDS: ENOXAPARIN 40 MG/0.4 ML SYRINGE SQ SCH (08:49)
--- NOTE | 2019-09-11 09:23 | P.PN ---
Subjective Patient is seen in follow-up for acute kidney injury on chronic kidney disease. Renal function a little worse today which is due to diuresis. Edema improving. Good urine output. Vital signs are stable. General: The patient appeared well nourished and normally developed. HEENT: Head exam is unremarkable. Neck is without jugular venous distension. LUNGS: Breath sounds decreased. HEART: Rate and Rhythm are regular. . ABDOMEN: Nontender. Nondistended. EXTREMITITES: 1+ edema. Objective - Vital Signs Vital signs: Vital Signs Temp 97.5 F L 09/11/19 08:00 Pulse 45 L 09/11/19 08:00 Resp 20 09/11/19 08:00 BP 131/64 09/11/19 08:00 Pulse Ox 94 L 09/11/19 08:00 Intake & Output 09/10/19 09/11/19 09/11/19 18:59 06:59 18:59 Intake Total 600 237 240 Output Total 200 200 200 Balance 400 37 40 Weight 92.2 kg Intake: Oral 600 237 240 Output: Urine 200 200 200 Other: Voiding Method Toilet Toilet Urinal Urinal # Voids 1 0 - Labs CBC & Chem 7: 09/11/19 05:37 09/11/19 05:37 Labs: Abnormal Lab Results - Last 24 Hours (Table) 09/10/19 09/10/19 09/10/19 Range/Units 11:31 12:53 16:39 WBC (3.8-10.6) k/uL RBC (4.30-5.90) m/uL Hgb (13.0-17.5) gm/dL Hct (39.0-53.0) % Neutrophils # (1.3-7.7) k/uL Lymphocytes # (1.0-4.8) k/uL Potassium (3.5-5.1) mmol/L Chloride (98-107) mmol/L Carbon Dioxide (22-30) mmol/L BUN (9-20) mg/dL Creatinine (0.66-1.25) mg/dL Glucose (74-99) mg/dL POC Glucose (mg/dL) 146 H 163 H (75-99) mg/dL Magnesium (1.6-2.3) mg/dL Total Bilirubin (0.2-1.3) mg/dL AST (17-59) U/L ALT (4-49) U/L Troponin I 0.167 H* (0.000-0.034) ng/mL Total Protein (6.3-8.2) g/dL Albumin (3.5-5.0) g/dL Urine Protein (Negative) 09/10/19 09/10/19 09/11/19 Range/Units 20:12 Unknown 05:37 WBC (3.8-10.6) k/uL RBC (4.30-5.90) m/uL Hgb (13.0-17.5) gm/dL Hct (39.0-53.0) % Neutrophils # (1.3-7.7) k/uL Lymphocytes # (1.0-4.8) k/uL Potassium 5.3 H (3.5-5.1) mmol/L Chloride 108 H (98-107) mmol/L Carbon Dioxide 20 L (22-30) mmol/L BUN 99 H (9-20) mg/dL Creatinine 2.78 H (0.66-1.25) mg/dL Glucose 122 H (74-99) mg/dL POC Glucose (mg/dL) 192 H (75-99) mg/dL Magnesium 2.6 H (1.6-2.3) mg/dL Total Bilirubin 0.1 L (0.2-1.3) mg/dL AST 120 H (17-59) U/L ALT 134 H (4-49) U/L Troponin I (0.000-0.034) ng/mL Total Protein 5.8 L (6.3-8.2) g/dL Albumin 3.2 L (3.5-5.0) g/dL Urine Protein Trace H (Negative) 09/11/19 09/11/19 Range/Units 05:37 06:04 WBC 17.1 H (3.8-10.6) k/uL RBC 3.87 L (4.30-5.90) m/uL Hgb 10.9 L (13.0-17.5) gm/dL Hct 35.1 L (39.0-53.0) % Neutrophils # 16.5 H (1.3-7.7) k/uL Lymphocytes # 0.2 L (1.0-4.8) k/uL Potassium (3.5-5.1) mmol/L Chloride (98-107) mmol/L Carbon Dioxide (22-30) mmol/L BUN (9-20) mg/dL Creatinine (0.66-1.25) mg/dL Glucose (74-99) mg/dL POC Glucose (mg/dL) 152 H (75-99) mg/dL Magnesium (1.6-2.3) mg/dL Total Bilirubin (0.2-1.3) mg/dL AST (17-59) U/L ALT (4-49) U/L Troponin I (0.000-0.034) ng/mL Total Protein (6.3-8.2) g/dL Albumin (3.5-5.0) g/dL Urine Protein (Negative) Microbiology - Last 24 Hours (Table) 09/09/19 16:58 Blood Culture - Preliminary Blood No Growth after 24 hours Assessment and Plan Plan: assessment: 1. Acute kidney injury mostly prerenal secondary to cardiorenal syndrome. Creatinine was 2.34 on admission and is 2.78 today. Trace proteinuria noted on UA. No evidence of hydronephrosis noted on kidney ultrasound. 2. Chronic kidney disease stage III with baseline creatinine near 1.5 secondary to nephrosclerosis. 3. Volume overload. Improving with diuresis. 4. Pneumonia maintained on antibiotics. COVID-19 testing negative. 5. Acute on chronic systolic CHF with ejection fraction of 25-30% with moderate aortic stenosis. Plan: Maintain Lasix 40 mg IV twice daily - can likely transition to oral diuretics tomorrow. Avoid nephrotoxins. Continue losartan for now as blood pressure is stable. Repeat electrolytes in the morning.
[2019-09-11 11:34] LABS: Glucose,Whole Blood 143 mg/dL (75-99)
--- NOTE | 2019-09-11 12:51 | P.CRDCN ---
<Dipti Mccurdy - Last Filed: 09/10/19 11:19> History of Present Illness History of present illness: This is Dipti Mccurdy PA-C scribing on behalf of Dr. Owusu The patient was interviewed and examined by Dr. Owusu HPI Patient is an 79-year-old male with a past medical history of paroxysmal atrial fibrillation, hypertension, COPD, CAD, diastolic heart failure, valvular heart disease presented with shortness of breath. He was recently discharged about a week ago after being treated for pneumonia and CHF. For the last 3-4 weeks he has had dyspnea on exertion and lower extremity edema. He denies any weakness, dizziness, syncope or presyncope. No chest pain. He was sent to the emergency department by his primary care provider. Upon arrival to the emergency department his pulse was in the 40s. Blood pressure 147/94. Patient is afebrile, respirations 20, oxygen saturation 97% on room air. EKGs show advanced heart block. One EKG shows third-degree heart block. Another EKG shows 2-1 heart block. Chest x-ray shows chronic parenchymal changes without any new suspicious acute pulmonary process. First troponin mildly abnormal. Creatinine is elevated at 2.4 potassium 4.9. Coronavirus testing is negative. He was admitted for further evaluation and management. Coreg and potassium are being held. EKG this morning again demonstrating advanced heart block. Heart rates remain in the 40s. Patient continues to deny dizziness, weakness, presyncope or syncope. No chest pain. ROS: No fevers, chills or rigors, Positive for cough no nausea, vomiting or diarrhea, no hematuria, dysuria, no musculoskeletal complaints, no strokes or seizures, no skin lesions. EXAMINATION: Patient is afebrile, pulse in the 40s, respirations 18, blood pressure 107/53, oxygen saturation 95% on 2 L nasal cannula Patient was examined by Dr. Owusu Patient appears comfortable, he isn't no respiratory distress Lungs are clear to auscultation bilaterally, no rhonchi no crackles Heart sounds are bradycardic No JVD Bilateral lower extremity edema REVIEW OF LABS, ECG & MEDICAL DATA WBC 10.6, hemoglobin 12.0, platelets 285, sodium 138, potassium 5.3, BUN 81, creatinine 2.55 Troponin 0.114, 0.104 Echocardiogram on 08/31/2019 shows severe global LV hypokinesis, EF 25-30%, mild to moderate MS, moderate IMPRESSION / ASSESSMENT: Advanced heart block with third-degree heart block on one ECG in 2-1 heart block on the other EKG, Coreg is on hold, potassium is on hold Cardiomyopathy with severe LV dysfunction, EF 25-30% Worsening renal function, progressive dyspnea, and lower extremity edema that is explained by his bradycardia Abnormal troponin most likely secondary to above history of paroxysmal atrial fibrillation Acute on chronic congestive heart failure secondary to systolic dysfunction Hypertension COPD PAD Valvular heart disease PLAN: Check TSH Recommend implantation of a permanent pacemaker Dr. Owusu had a detailed discussion with the patient in regards to the need for permanent pacing, patient is refusing this at this time Past Medical History Past Medical History: Atrial Fibrillation, Blood Disorder, COPD, GERD/Reflux, GI Bleed, Hypertension, Thyroid Disorder Additional Past Medical History / Comment(s): ANEMIA, HIATAL HERNIA (PER EGD) arrhythmia, skin cancer - RUE, LUE, R religious, Nose (sees Dr. Cortez) PAST RT LEG ULCERS, chf History of Any Multi-Drug Resistant Organisms: VRE Date of last positivie culture/infection: 02/24/15 MDRO Source:: Right leg wound Past Surgical History: Adenoidectomy, Tonsillectomy Additional Past Surgical History / Comment(s): hemorrhoidectomy, tennis elbow, EGD.CATRACT SURGERY Past Anesthesia/Blood Transfusion Reactions: No Reported Reaction Past Psychological History: No Psychological Hx Reported Smoking Status: Current some day smoker Past Alcohol Use History: None Reported Additional Past Alcohol Use History / Comment(s): STARTED SMOKIN G AT AGE 17, TRYING TO QUIT NOW 1 CIGARETTE A DAY RECENTLY Past Drug Use History: None Reported - Past Family History Mother Family Medical History: No Reported History Daughter(s) History Unknown: Yes Family Medical History: Cancer Additional Family Medical History / Comment(s): uterine/lung/brain CA - current terminal Father History Unknown: Yes Family Medical History: Cancer Additional Family Medical History / Comment(s): prostate CA - from Medications and Allergies Home Medications Medication Instructions Recorded Confirmed Type RX: Multivitamin [Men's 1 tab PO HS 12/13/14 09/09/19 History Multi-Vitamin] RX: Potassium Chloride ER [K-Dur 10 meq PO HS 10/22/15 09/09/19 History 20] RX: Levothyroxine Sodium 88 mcg PO HS 08/30/19 09/09/19 History [Synthroid] RX: Telmisartan 80 mg PO HS 08/30/19 09/09/19 History Furosemide [Lasix] 40 mg PO BID 30 Days #60 tablet 09/02/19 09/09/19 Rx RX: Aspirin 81 mg PO DAILY chew 09/02/19 09/09/19 Rx RX: Carvedilol [Coreg] 6.25 mg PO BID-W/MEALS tab 09/02/19 09/09/19 Rx RX: Isosorbide Mononitrate ER 30 mg PO DAILY tab.er.24h 09/02/19 09/09/19 Rx [Imdur] RX: hydrALAZINE HCL [Apresoline] 50 mg PO TID tab 09/02/19 09/09/19 Rx Cefuroxime Axetil [Ceftin] 500 mg PO BID 09/09/19 09/09/19 History Ferrous Sulfate [Feosol] 325 mg PO DAILY 09/09/19 09/09/19 History Allergies Allergy/AdvReac Type Severity Reaction Status Date / Time Sulfa (Sulfonamide Allergy Rash/Hives Verified 09/09/19 19:37 Antibiotics) Physical Exam Vitals: Vital Signs Temp Pulse Pulse Resp BP BP Pulse Ox 09/10/19 08:00 98.1 F 42 L 20 153/65 97 09/10/19 04:00 97.9 F 43 L 18 107/53 95 09/10/19 00:00 98.2 F 46 L 18 151/70 97 09/09/19 20:16 98.3 F 49 L 16 162/70 96 09/09/19 20:00 98.3 F 49 L 18 162/70 96 09/09/19 19:04 98.7 F 98 09/09/19 18:55 98.6 F 48 L 20 148/80 98 09/09/19 17:23 44 L 20 145/62 98 09/09/19 16:45 46 L 20 09/09/19 16:12 97.7 F 47 L 20 147/94 97 Intake and Output 09/09/19 09/10/19 09/10/19 22:59 06:59 14:59 Intake Total 120 Output Total 450 Balance -450 120 Intake: Oral 120 Output: Urine 450 Other: Voiding Method Toilet Toilet Toilet Urinal Urinal Urinal # Voids 1 0 Weight 88.451 kg 90.2 kg Results 09/09/19 17:05 09/10/19 07:18 Cardiac Enzymes 09/09/19 09/09/19 09/10/19 Range/Units 17:05 17:05 07:18 AST 32 (17-59) U/L CK-MB (CK-2) 2.5 H (0.0-2.4) ng/mL Troponin I 0.104 H* 0.114 H* (0.000-0.034) ng/mL Coagulation 09/09/19 Range/Units 17:05 PT 9.7 (9.0-12.0) sec APTT 26.1 (22.0-30.0) sec CBC 09/09/19 Range/Units 17:05 WBC 10.6 (3.8-10.6) k/uL RBC 4.32 (4.30-5.90) m/uL Hgb 12.0 L (13.0-17.5) gm/dL Hct 38.1 L (39.0-53.0) % Plt Count 285 (150-450) k/uL Comprehensive Metabolic Panel 09/09/19 09/10/19 Range/Units 17:05 07:18 Sodium 135 L 138 (137-145) mmol/L Potassium 4.9 5.3 H (3.5-5.1) mmol/L Chloride 103 106 (98-107) mmol/L Carbon Dioxide 24 25 (22-30) mmol/L BUN 83 H 84 H (9-20) mg/dL Creatinine 2.34 H 2.55 H (0.66-1.25) mg/dL Glucose 103 H 160 H (74-99) mg/dL Calcium 8.9 8.7 (8.4-10.2) mg/dL AST 32 (17-59) U/L ALT 31 (4-49) U/L Alkaline Phosphatase 84 (38-126) U/L Total Protein 6.6 (6.3-8.2) g/dL Albumin 3.7 (3.5-5.0) g/dL Current Medications Generic Name Dose Route Start Last Admin Trade Name Freq PRN Reason Stop Dose Admin Albuterol Sulfate 2 puff 09/09/19 20:00 09/10/19 11:14 Ventolin Hfa Inhaler INHALATION 2 puff RT-QID [facility] Administration Aspirin 81 mg 09/10/19 09:00 09/10/19 08:27 Aspirin PO Not Given DAILY [facility] Cefdinir 300 mg 09/09/19 22:30 09/10/19 08:11 Omnicef PO 300 mg BID [facility] Administration Enoxaparin Sodium 40 mg 09/10/19 09:00 09/10/19 08:11 Lovenox SQ 40 mg DAILY [facility] Administration Ferrous Sulfate 325 mg 09/10/19 09:00 09/10/19 08:11 Feosol PO 325 mg DAILY [facility] Administration Furosemide 40 mg 09/09/19 22:30 09/10/19 08:11 Lasix PO 40 mg BID [facility] Administration Hydralazine HCl 50 mg 09/09/19 22:30 09/10/19 08:11 Apresoline PO 50 mg TID [facility] Administration Insulin Aspart 0 unit 09/10/19 07:30 09/10/19 07:02 Novolog SQ 3 unit ACHS [facility] Administration Protocol Isosorbide Mononitrate 30 mg 09/10/19 09:00 09/10/19 08:11 Imdur PO 30 mg DAILY [facility] Administration Levothyroxine Sodium 88 mcg 09/09/19 22:30 09/09/19 23:23 Synthroid PO 88 mcg HS [facility] Administration Losartan Potassium 150 mg 09/09/19 22:30 09/09/19 23:22 Cozaar PO 150 mg HS [facility] Administration Methylprednisolone Sodium Succinate 60 mg 09/10/19 00:00 09/10/19 07:01 Solu-Medrol IV 60 mg Q6HR [facility] Administration Multivitamins 1 each 09/09/19 22:30 09/09/19 23:22 Theragran PO 1 each HS [facility] Administration Nitroglycerin 0.4 mg 09/10/19 06:44 Nitrostat SUBLINGUAL Q5M PRN Chest Pain Tiotropium [place] 1 puff 09/09/19 20:00 09/10/19 07:37 Spiriva INHALATION 1 puff RT-DAILY [facility] Administration Intake and Output 09/09/19 09/10/19 09/10/19 22:59 06:59 14:59 Intake Total 120 Output Total 450 Balance -450 120 Intake: Oral 120 Output: Urine 450 Other: Voiding Method Toilet Toilet Toilet Urinal Urinal Urinal # Voids 1 0 Weight 88.451 kg 90.2 kg 09/09/19 17:05 09/10/19 07:18 <FrancoiseLavon - Last Filed: 09/11/19 12:51> Physical Exam Vitals: Vital Signs Temp Pulse Resp BP Pulse Ox 09/11/19 12:00 98 F 70 18 151/65 94 L 09/11/19 08:00 97.5 F L 45 L 20 131/64 94 L 09/11/19 04:00 97.4 F L 70 18 129/60 98 09/11/19 00:00 98.0 F 72 20 143/67 96 09/10/19 20:00 98.0 F 54 L 20 142/71 95 09/10/19 15:38 95 09/10/19 15:33 98 F 41 L 20 136/64 93 L Intake and Output 09/10/19 09/11/19 09/11/19 22:59 06:59 14:59 Intake Total 477 240 Output Total 200 400 Balance 277 -160 Intake: Oral 477 240 Output: Urine 200 400 Other: Voiding Method Toilet Toilet Toilet Urinal Urinal Urinal # Voids 1 0 Weight 92.2 kg Results 09/11/19 05:37 09/11/19 05:37 Cardiac Enzymes 09/10/19 09/11/19 Range/Units 12:53 05:37 AST 120 H (17-59) U/L Troponin I 0.167 H* (0.000-0.034) ng/mL CBC 09/11/19 Range/Units 05:37 WBC 17.1 H (3.8-10.6) k/uL RBC 3.87 L (4.30-5.90) m/uL Hgb 10.9 L (13.0-17.5) gm/dL Hct 35.1 L (39.0-53.0) % Plt Count 237 (150-450) k/uL Comprehensive Metabolic Panel 09/11/19 Range/Units 05:37 Sodium 138 (137-145) mmol/L Potassium 5.3 H (3.5-5.1) mmol/L Chloride 108 H (98-107) mmol/L Carbon Dioxide 20 L (22-30) mmol/L BUN 99 H (9-20) mg/dL Creatinine 2.78 H (0.66-1.25) mg/dL Glucose 122 H (74-99) mg/dL Calcium 8.6 (8.4-10.2) mg/dL AST 120 H (17-59) U/L ALT 134 H (4-49) U/L Alkaline Phosphatase 82 (38-126) U/L Total Protein 5.8 L (6.3-8.2) g/dL Albumin 3.2 L (3.5-5.0) g/dL Current Medications Generic Name Dose Route Start Last Admin Trade Name Freq PRN Reason Stop Dose Admin Albuterol Sulfate 2 puff 09/09/19 20:00 09/11/19 12:07 Ventolin Hfa Inhaler INHALATION 2 puff RT-QID [facility] Administration Aspirin 81 mg 09/10/19 09:00 09/11/19 08:49 Aspirin PO 81 mg DAILY [facility] Administration Azithromycin 500 mg 09/11/19 21:00 Zithromax PO HS [facility] Enoxaparin Sodium 30 mg 09/12/19 09:00 Lovenox SQ DAILY [facility] Ferrous Sulfate 325 mg 09/10/19 09:00 09/11/19 08:49 Feosol PO 325 mg DAILY [facility] Administration Furosemide 40 mg 09/10/19 13:00 09/11/19 08:49 Lasix IV 40 mg Q12HR [facility] Administration Hydralazine HCl 50 mg 09/09/19 22:30 09/11/19 08:49 Apresoline PO 50 mg TID [facility] Administration Ceftriaxone Sodium 1 gm/ 50 mls @ 100 mls/hr 09/11/19 09:00 09/11/19 08:49 Sodium Chloride IVPB 100 mls/hr Q24HR [facility] Administration Insulin Aspart 0 unit 09/10/19 07:30 09/11/19 12:00 Novolog SQ 2 unit ACHS [facility] Administration Protocol Isosorbide Mononitrate 30 mg 09/10/19 09:00 09/11/19 08:49 Imdur PO 30 mg DAILY [facility] Administration Levothyroxine Sodium 88 mcg 09/09/19 22:30 09/10/19 23:07 Synthroid PO 88 mcg HS [facility] Administration Losartan Potassium 150 mg 09/09/19 22:30 09/10/19 23:07 Cozaar PO 150 mg HS [facility] Administration Methylprednisolone Sodium Succinate 60 mg 09/10/19 00:00 09/11/19 12:00 Solu-Medrol IV 60 mg Q6HR [facility] Administration Multivitamins 1 each 09/09/19 22:30 09/10/19 23:07 Theragran PO 1 each HS [facility] Administration Nitroglycerin 0.4 mg 09/10/19 06:44 Nitrostat SUBLINGUAL Q5M PRN Chest Pain Tiotropium [place] 1 puff 09/09/19 20:00 09/11/19 07:50 Spiriva INHALATION 1 puff RT-DAILY [facility] Administration Intake and Output 09/10/19 09/11/19 09/11/19 22:59 06:59 14:59 Intake Total 477 240 Output Total 200 400 Balance 277 -160 Intake: Oral 477 240 Output: Urine 200 400 Other: Voiding Method Toilet Toilet Toilet Urinal Urinal Urinal # Voids 1 0 Weight 92.2 kg 09/11/19 05:37 09/11/19 05:37
--- NOTE | 2019-09-11 14:49 | P.PN ---
Subjective Progress Note Date: 09/11/19 Sean Lin is an 79-year-old male, who presented to [facility] emergency room with a chief complaint of worsening shortness of breath. He was evaluated in the emergency room, preliminary diagnosis in the emergency room was acute on chronic congestive heart failure exacerbation, acute on chronic renal failure, and acute exacerbation of chronic obstructive pulmonary disease, he was started on IV antibiotic, IV steroids, and IV diuretics and was admitted to telemetry floor. Patient was recently admitted to the hospital with similar symptoms, at that time he was diagnosed with acute congestive heart failure exacerbation and evidence of cardiomyopathy, this is a new diagnosis for him, he was started on on diuretics he improved he was discharged home, however his kidney function has worsened since last admission. Nephrology consultation was requested for evaluation. On 09/11/2019 patient was seen and examined on the medical floor he is alert and oriented 3 in no apparent distress he is still complaining of shortness of breath with activity and complaining of lower extremity swelling he has occasional cough otherwise he denies any symptoms there is no fever or chills no headache or dizziness no chest pain no nausea or vomiting no abdominal pain no diarrhea no burning was urination no frequency or urgency and no hematuria Objective - Vital Signs Vital signs: Vital Signs Temp 98 F 09/11/19 12:00 Pulse 70 09/11/19 12:00 Resp 18 09/11/19 12:00 BP 151/65 09/11/19 12:00 Pulse Ox 94 L 09/11/19 12:00 Intake & Output 09/10/19 09/11/19 09/11/19 18:59 06:59 18:59 Intake Total 600 237 240 Output Total 200 200 400 Balance 400 37 -160 Weight 92.2 kg Intake: Oral 600 237 240 Output: Urine 200 200 400 Other: Voiding Method Toilet Toilet Toilet Urinal Urinal Urinal # Voids 1 0 - Exam In general patient is alert and oriented 3 in no apparent distress HEENT head normocephalic and atraumatic Neck is supple no JVD no goiter no lymphadenopathy Chest exam reveals a few scattered crackles bilaterally no wheezing Cardiac exam reveals regular heart sounds S1 and S2 no gallops no murmurs Abdomen is soft nontender no organomegaly with normal bowel sounds Extremity exam reveals 2+ edema no cyanosis or clubbing Neurological examination reveals no gross focal deficit - Labs CBC & Chem 7: 09/11/19 05:37 09/11/19 05:37 Labs: Abnormal Lab Results - Last 24 Hours (Table) 09/10/19 09/10/19 09/10/19 Range/Units 16:39 20:12 Unknown WBC (3.8-10.6) k/uL RBC (4.30-5.90) m/uL Hgb (13.0-17.5) gm/dL Hct (39.0-53.0) % Neutrophils # (1.3-7.7) k/uL Lymphocytes # (1.0-4.8) k/uL Potassium (3.5-5.1) mmol/L Chloride (98-107) mmol/L Carbon Dioxide (22-30) mmol/L BUN (9-20) mg/dL Creatinine (0.66-1.25) mg/dL Glucose (74-99) mg/dL POC Glucose (mg/dL) 163 H 192 H (75-99) mg/dL Magnesium (1.6-2.3) mg/dL Total Bilirubin (0.2-1.3) mg/dL AST (17-59) U/L ALT (4-49) U/L Total Protein (6.3-8.2) g/dL Albumin (3.5-5.0) g/dL Urine Protein Trace H (Negative) 09/11/19 09/11/19 09/11/19 Range/Units 05:37 05:37 06:04 WBC 17.1 H (3.8-10.6) k/uL RBC 3.87 L (4.30-5.90) m/uL Hgb 10.9 L (13.0-17.5) gm/dL Hct 35.1 L (39.0-53.0) % Neutrophils # 16.5 H (1.3-7.7) k/uL Lymphocytes # 0.2 L (1.0-4.8) k/uL Potassium 5.3 H (3.5-5.1) mmol/L Chloride 108 H (98-107) mmol/L Carbon Dioxide 20 L (22-30) mmol/L BUN 99 H (9-20) mg/dL Creatinine 2.78 H (0.66-1.25) mg/dL Glucose 122 H (74-99) mg/dL POC Glucose (mg/dL) 152 H (75-99) mg/dL Magnesium 2.6 H (1.6-2.3) mg/dL Total Bilirubin 0.1 L (0.2-1.3) mg/dL AST 120 H (17-59) U/L ALT 134 H (4-49) U/L Total Protein 5.8 L (6.3-8.2) g/dL Albumin 3.2 L (3.5-5.0) g/dL Urine Protein (Negative) 09/11/19 Range/Units 11:32 WBC (3.8-10.6) k/uL RBC (4.30-5.90) m/uL Hgb (13.0-17.5) gm/dL Hct (39.0-53.0) % Neutrophils # (1.3-7.7) k/uL Lymphocytes # (1.0-4.8) k/uL Potassium (3.5-5.1) mmol/L Chloride (98-107) mmol/L Carbon Dioxide (22-30) mmol/L BUN (9-20) mg/dL Creatinine (0.66-1.25) mg/dL Glucose (74-99) mg/dL POC Glucose (mg/dL) 143 H (75-99) mg/dL Magnesium (1.6-2.3) mg/dL Total Bilirubin (0.2-1.3) mg/dL AST (17-59) U/L ALT (4-49) U/L Total Protein (6.3-8.2) g/dL Albumin (3.5-5.0) g/dL Urine Protein (Negative) Microbiology - Last 24 Hours (Table) 09/09/19 16:58 Blood Culture - Preliminary Blood No Growth after 24 hours Assessment and Plan Assessment: 1. Acute on chronic systolic congestive heart failure exacerbation 2. Acute kidney injury, on top of chronic kidney disease stage III, and evidence of volume overload 3. Possible pneumonia patient presenting with low-grade fever and cough and shortness of breath, chest x-ray at this time does not reveal any clear infiltrate 4. Mild elevation in troponin levels, no clear evidence of myocardial infarction, cardiology consultation requested 5. Bradycardia cardiology consultation was requested, Coreg is on hold at this time. Medication and labs were reviewed please see orders Cardiology and nephrology consultation requested, input reviewed Will continue with IV Lasix for today Will monitor Recheck labs in a.m. Will follow closely
[2019-09-11] MEDS: methylPREDNISolone SOD SUCCI 40 MG/ML 1 ML VIAL IV SCH (15:27)
[2019-09-11 16:33] LABS: Glucose,Whole Blood 146 mg/dL (75-99)
[2019-09-11 20:32] LABS: Glucose,Whole Blood 176 mg/dL (75-99)
[2019-09-11] MEDS: LOSARTAN 50 MG TAB PO SCH (22:34)
[2019-09-11] MEDS: AZITHROMYCIN 500 MG TAB PO SCH (22:34)
[2019-09-11] MEDS: LEVOTHYROXINE 88 MCG TAB PO SCH (22:34)
[2019-09-11] MEDS: MULTIVITAMINS, THERA 1 EACH TAB PO SCH (22:34)
[2019-09-12] MEDS: methylPREDNISolone SOD SUCCI 40 MG/ML 1 ML VIAL IV SCH ×2 (00:21→08:31)
[2019-09-12 06:08] LABS: Glucose,Whole Blood 144 mg/dL (75-99)
[2019-09-12] MEDS: INSULIN ASPART (NovoLOG) 100 UNIT/ML VIAL SQ SCH ×3 (06:32→16:44)
[2019-09-12 06:43] LABS: Basophils % (A) 0 %; Eosinophils % (A) 0 %; HGB 10.9 gm/dL (13.0-17.5); Hypochromasia Slight; Lymphocytes # (A) 0.2 k/uL (1.0-4.8); Lymphocytes % (A) 1 %; MCHC 32.2 g/dL (31.0-37.0); MCV 90.3 fL (80.0-100.0); Mean Platelet Volume 9.5; Monocytes # (A) 0.3 k/uL (0-1.0); Monocytes % (A) 2 %; Neutrophils # (A) 19.5 k/uL (1.3-7.7); Neutrophils % (A) 97 %; Platelet Count 254 k/uL (150-450); RBC 3.76 m/uL (4.30-5.90); RDW 15.4 % (11.5-15.5); WBC 20.1 k/uL (3.8-10.6)
[2019-09-12 07:04] LABS: Albumin 3.2 g/dL (3.5-5.0); Calcium 8.6 mg/dL (8.4-10.2); Magnesium 2.6 mg/dL (1.6-2.3); Potassium 4.9 mmol/L (3.5-5.1); Total Bilirubin 0.1 mg/dL (0.2-1.3)
[2019-09-12] MEDS: ALBUTEROL HFA INHALER INHALATION SCH ×4 (07:18→20:31)
[2019-09-12] MEDS: TIOTROPIUM 18 MCG/PUFF INHALER INHALATION SCH (07:19)
[2019-09-12] MEDS: ASPIRIN 81 MG PO SCH (08:31)
[2019-09-12] MEDS: ENOXAPARIN 30 MG/0.3 ML SYRINGE SQ SCH (08:31)
[2019-09-12] MEDS: FERROUS SULFATE 325 MG TAB PO SCH (08:32)
[2019-09-12] MEDS: hydrALAZINE HCL 50 MG TAB PO SCH ×3 (08:32→22:28)
[2019-09-12] MEDS: ISOSORBIDE MONONITRATE ER 30 MG TAB.ER.24H PO SCH (08:32)
[2019-09-12] MEDS ORDERED: FUROSEMIDE 10 MG/ML 4 ML VIAL IV SCH (09:00)
--- NOTE | 2019-09-12 09:14 | P.PN ---
Subjective Patient is seen in follow-up for acute kidney injury on chronic kidney disease. Renal function is fairly stable. Edema gradually improving. Nonoliguric. Vital signs are stable. General: The patient appeared well nourished and normally developed. HEENT: Head exam is unremarkable. Neck is without jugular venous distension. LUNGS: Breath sounds decreased. HEART: Rate and Rhythm are regular. . ABDOMEN: Nontender. Nondistended. EXTREMITITES: 1+ edema. Objective - Vital Signs Vital signs: Vital Signs Temp 97.3 F L 09/12/19 04:00 Pulse 77 09/12/19 04:00 Resp 18 09/12/19 04:00 BP 159/70 09/12/19 04:00 Pulse Ox 96 09/12/19 04:00 Intake & Output 09/11/19 09/12/19 09/12/19 18:59 06:59 18:59 Intake Total 660 540 240 Output Total 850 750 Balance -190 -210 240 Weight 95.3 kg Intake: Oral 660 540 240 Output: Urine 850 750 Other: Voiding Method Toilet Toilet Urinal Urinal - Labs CBC & Chem 7: 09/12/19 06:27 09/12/19 06:27 Labs: Abnormal Lab Results - Last 24 Hours (Table) 09/11/19 09/11/19 09/11/19 Range/Units 11:32 16:31 20:30 WBC (3.8-10.6) k/uL RBC (4.30-5.90) m/uL Hgb (13.0-17.5) gm/dL Hct (39.0-53.0) % Neutrophils # (1.3-7.7) k/uL Lymphocytes # (1.0-4.8) k/uL Sodium (137-145) mmol/L Carbon Dioxide (22-30) mmol/L BUN (9-20) mg/dL Creatinine (0.66-1.25) mg/dL Glucose (74-99) mg/dL POC Glucose (mg/dL) 143 H 146 H 176 H (75-99) mg/dL Magnesium (1.6-2.3) mg/dL Total Bilirubin (0.2-1.3) mg/dL ALT (4-49) U/L Total Protein (6.3-8.2) g/dL Albumin (3.5-5.0) g/dL 09/12/19 09/12/19 09/12/19 Range/Units 06:06 06:27 06:27 WBC 20.1 H (3.8-10.6) k/uL RBC 3.76 L (4.30-5.90) m/uL Hgb 10.9 L (13.0-17.5) gm/dL Hct 34.0 L (39.0-53.0) % Neutrophils # 19.5 H (1.3-7.7) k/uL Lymphocytes # 0.2 L (1.0-4.8) k/uL Sodium 136 L (137-145) mmol/L Carbon Dioxide 21 L (22-30) mmol/L BUN 111 H* (9-20) mg/dL Creatinine 2.59 H (0.66-1.25) mg/dL Glucose 133 H (74-99) mg/dL POC Glucose (mg/dL) 144 H (75-99) mg/dL Magnesium 2.6 H (1.6-2.3) mg/dL Total Bilirubin 0.1 L (0.2-1.3) mg/dL ALT 109 H (4-49) U/L Total Protein 6.0 L (6.3-8.2) g/dL Albumin 3.2 L (3.5-5.0) g/dL Microbiology - Last 24 Hours (Table) 09/09/19 16:58 Blood Culture - Preliminary Blood No Growth after 48 hours Assessment and Plan Plan: assessment: 1. Acute kidney injury mostly prerenal secondary to cardiorenal syndrome. Creatinine was 2.34 on admission and peaked at 2.78 this admission. Fairly stable at 2.59 today. Trace proteinuria noted on UA. No evidence of hydronephrosis noted on kidney ultrasound. Elevated BUN which is partially due to IV steroids. No evidence of GI bleed. 2. Chronic kidney disease stage III with baseline creatinine near 1.5 secondary to nephrosclerosis. 3. Volume overload. Improving with diuresis. 4. Pneumonia maintained on antibiotics. COVID-19 testing negative. 5. Acute on chronic systolic CHF with ejection fraction of 25-30% with moderate aortic stenosis. 6. Advanced heart block. Patient is currently refusing pacemaker insertion. Cardiology following. Plan: Discontinue IV Lasix. Start oral Lasix 40 mg orally twice daily. Avoid nephrotoxins. Continue losartan for now as blood pressure is stable. Repeat electrolytes in the morning.
[2019-09-12 11:28] LABS: Glucose,Whole Blood 136 mg/dL (75-99)
--- NOTE | 2019-09-12 14:36 | P.PN ---
Subjective Progress Note Date: 09/12/19 Sean Lin is an 79-year-old male, who presented to [facility] emergency room with a chief complaint of worsening shortness of breath. He was evaluated in the emergency room, preliminary diagnosis in the emergency room was acute on chronic congestive heart failure exacerbation, acute on chronic renal failure, and acute exacerbation of chronic obstructive pulmonary disease, he was started on IV antibiotic, IV steroids, and IV diuretics and was admitted to telemetry floor. Patient was recently admitted to the hospital with similar symptoms, at that time he was diagnosed with acute congestive heart failure exacerbation and evidence of cardiomyopathy, this is a new diagnosis for him, he was started on on diuretics he improved he was discharged home, however his kidney function has worsened since last admission. Nephrology consultation was requested for evaluation. On 09/11/2019 patient was seen and examined on the medical floor he is alert and oriented 3 in no apparent distress he is still complaining of shortness of breath with activity and complaining of lower extremity swelling he has occasional cough otherwise he denies any symptoms there is no fever or chills no headache or dizziness no chest pain no nausea or vomiting no abdominal pain no diarrhea no burning was urination no frequency or urgency and no hematuria On 09/12/2019 patient was seen and examined on the medical floor he is feeling better shortness of breath is improving however he is still complaining of 3+ swelling in bilateral lower extremities otherwise he denies any complaints there is no fever or chills no headache or dizziness no chest pain no cough no nausea or vomiting no abdominal pain no diarrhea no burning with urination no frequency or urgency and no hematuria Objective - Vital Signs Vital signs: Vital Signs Temp 97.8 F 09/12/19 08:00 Pulse 80 09/12/19 11:32 Resp 20 09/12/19 11:32 BP 154/72 09/12/19 11:31 Pulse Ox 95 09/12/19 11:31 Intake & Output 09/11/19 09/12/19 09/12/19 18:59 06:59 18:59 Intake Total 697 974 7656 Output Total 850 750 450 Balance -190 -210 550 Weight 95.3 kg Intake: Oral 191 262 1381 Output: Urine 850 750 450 Other: Voiding Method Toilet Toilet Urinal Urinal Urinal - Exam In general patient is alert and oriented 3 in no apparent distress HEENT head normocephalic and atraumatic Neck is supple no JVD no goiter no lymphadenopathy Chest exam reveals a few scattered crackles bilaterally no wheezing Cardiac exam reveals regular heart sounds S1 and S2 no gallops no murmurs Abdomen is soft nontender no organomegaly with normal bowel sounds Extremity exam reveals 2+ edema no cyanosis or clubbing Neurological examination reveals no gross focal deficit - Labs CBC & Chem 7: 09/12/19 06:27 09/12/19 06:27 Labs: Abnormal Lab Results - Last 24 Hours (Table) 09/11/19 09/11/19 09/12/19 Range/Units 16:31 20:30 06:06 WBC (3.8-10.6) k/uL RBC (4.30-5.90) m/uL Hgb (13.0-17.5) gm/dL Hct (39.0-53.0) % Neutrophils # (1.3-7.7) k/uL Lymphocytes # (1.0-4.8) k/uL Sodium (137-145) mmol/L Carbon Dioxide (22-30) mmol/L BUN (9-20) mg/dL Creatinine (0.66-1.25) mg/dL Glucose (74-99) mg/dL POC Glucose (mg/dL) 146 H 176 H 144 H (75-99) mg/dL Magnesium (1.6-2.3) mg/dL Total Bilirubin (0.2-1.3) mg/dL ALT (4-49) U/L Total Protein (6.3-8.2) g/dL Albumin (3.5-5.0) g/dL 09/12/19 09/12/19 09/12/19 Range/Units 06:27 06:27 11:27 WBC 20.1 H (3.8-10.6) k/uL RBC 3.76 L (4.30-5.90) m/uL Hgb 10.9 L (13.0-17.5) gm/dL Hct 34.0 L (39.0-53.0) % Neutrophils # 19.5 H (1.3-7.7) k/uL Lymphocytes # 0.2 L (1.0-4.8) k/uL Sodium 136 L (137-145) mmol/L Carbon Dioxide 21 L (22-30) mmol/L BUN 111 H* (9-20) mg/dL Creatinine 2.59 H (0.66-1.25) mg/dL Glucose 133 H (74-99) mg/dL POC Glucose (mg/dL) 136 H (75-99) mg/dL Magnesium 2.6 H (1.6-2.3) mg/dL Total Bilirubin 0.1 L (0.2-1.3) mg/dL ALT 109 H (4-49) U/L Total Protein 6.0 L (6.3-8.2) g/dL Albumin 3.2 L (3.5-5.0) g/dL Microbiology - Last 24 Hours (Table) 09/09/19 16:58 Blood Culture - Preliminary Blood No Growth after 48 hours Assessment and Plan Assessment: 1. Acute on chronic systolic congestive heart failure exacerbation 2. Acute kidney injury, on top of chronic kidney disease stage III, and evidence of volume overload 3. Possible pneumonia patient presenting with low-grade fever and cough and shortness of breath, chest x-ray at this time does not reveal any clear infiltrate 4. Mild elevation in troponin levels, no clear evidence of myocardial infarction, cardiology consultation requested 5. Bradycardia cardiology consultation was requested, Coreg is on hold at this time. 6. Acute bronchitis with COPD exacerbation with discontinue IV steroids and start oral prednisone tomorrow continue current IV antibiotics Medication and labs were reviewed please see orders Cardiology and nephrology consultation requested, input reviewed Will continue with IV Lasix for today Will monitor Recheck labs in a.m. Will follow closely
--- NOTE | 2019-09-12 14:42 | CDI ---
Documentation Clarification Form Date: 09/12/2019 02:35:39 PM From: Mita Keys RN, CCDS Admit Date: 09/09/2019 06:13:00 PM Patient Name: Sean Lin Visit Number: [id number] ATTENTION: The Clinical Documentation Specialists (CDI) and [facility] Coding Staff appreciate your assistance in clarifying documentation. Please respond to the clarification below the line at the bottom and electronically sign. The CDI & [facility] Coding staff will review the response and follow-up if needed. Please note: Queries are made part of the Legal Health Record. If you have any questions, please contact the author of this message via ITS. Dr. Alexandra Lagunas Anemia is documented in the medical record in a patient with declining Hgb. History/Risk Factors: Anemia, PAT on CKD stage 3, A/C systolic CHF Clinical indicators: Hemoglobin: 12/10.9/10.9 Hematocrit: 38.1/35.1/34 Treatment: Feosol 325 mg PO QD Labs AM Daily In order to capture the severity of condition, please clarify the type of anemia and etiology if known:. Chronic blood loss anemia Iron deficiency anemia Nutritional anemia Anemia of chronic kidney disease Anemia of chronic disease Unable to determine Other, please specify (Last Form Revision: July 2019) Anemia of chronic kidney disease and iron deficiency MTDD
[2019-09-12] MEDS: FUROSEMIDE 40 MG TAB PO SCH (16:44)
--- NOTE | 2019-09-12 20:44 | CT ---
EXAMINATION TYPE: CT brain wo con DATE OF EXAM: 09/12/2019 COMPARISON: 07/06/2012 HISTORY: FALL INJURY TODAY CT DLP: 1150.4 mGycm Automated exposure control for dose reduction was used. Multiple axial sections were obtained of the brain with no contrast. There is some cerebral cortical atrophy. There is no mass effect nor midline shift. There is no sign of intracranial hemorrhage. There is patchy hypodensity in the periventricular white matter. The calv arium is intact. IMPRESSION: Cerebral atrophy and chronic small vessel ischemia. No acute intracranial abnormality. No adverse roverto nge compared to old exam.
[2019-09-12] MEDS: MULTIVITAMINS, THERA 1 EACH TAB PO SCH (22:28)
[2019-09-12] MEDS: LOSARTAN 50 MG TAB PO SCH (22:29)
[2019-09-12] MEDS: LEVOTHYROXINE 88 MCG TAB PO SCH (22:29)
[2019-09-12] MEDS: AZITHROMYCIN 500 MG TAB PO SCH (22:29)
[2019-09-13 06:34] LABS: Calcium 8.9 mg/dL (8.4-10.2); Magnesium 2.5 mg/dL (1.6-2.3); Potassium 5.2 mmol/L (3.5-5.1)
[2019-09-13 07:50] LABS: Glucose,Whole Blood 169 mg/dL (75-99)
[2019-09-13] MEDS: ALBUTEROL HFA INHALER INHALATION SCH ×4 (07:58→19:48)
[2019-09-13] MEDS: TIOTROPIUM 18 MCG/PUFF INHALER INHALATION SCH (08:21)
[2019-09-13] MEDS: FERROUS SULFATE 325 MG TAB PO SCH (09:30)
[2019-09-13] MEDS: hydrALAZINE HCL 50 MG TAB PO SCH (09:30)
[2019-09-13] MEDS: FUROSEMIDE 40 MG TAB PO SCH ×2 (09:30→16:55)
[2019-09-13] MEDS: ISOSORBIDE MONONITRATE ER 30 MG TAB.ER.24H PO SCH (09:30)
[2019-09-13] MEDS: predniSONE 20 MG TAB PO SCH (09:30)
[2019-09-13] MEDS: ENOXAPARIN 30 MG/0.3 ML SYRINGE SQ SCH (09:31)
[2019-09-13] MEDS: ASPIRIN 81 MG PO SCH (09:35)
--- NOTE | 2019-09-13 11:59 | P.PN ---
<Dipti cMcurdy - Last Filed: 09/12/19 11:06> Subjective This is Dipti Mccurdy PA-C scribing on behalf of Dr. Owusu The patient was interviewed and examined by Dr. Owusu HPI/interval history Patient is an 79-year-old male with a history of paroxysmal atrial fibrillation, hypertension, COPD, PAD, heart failure, and valvular heart disease who presented with complaints of shortness of breath. He was found to have worsening renal fucntion and advanced heart block. A permanent pacemaker was recommended however the patient is refusing at this time. Heart rates are currently in the 70s. Coreg remains on hold. Continues to deny any dizziness, lightheadedness or syncope. EXAMINATION Patient is afebrile, pulse in the 70s, respirations 18, blood pressure 153/79, oxygen saturation 95% on room air Dr. Owusu saw and examined the patient Patient appears comfortable, lying flat, in no acute distress heart sounds are soft Lungs with crackles at the bilateral bases posteriorly bilateral lower extremity edema, right greater than left REVIEW OF LABS, ECG WBC 20.1, hemoglobin 10.9, platelets 254, potassium 4.9, BUN 111, creatinine 2.59 TSH within normal limits IMPRESSION / ASSESSMENT: Advanced heart block, patient refusing pacemaker Cardiomyopathy with severe LV dysfunction, EF 25-30% Worsening renal function, progressive dyspnea, and lower extremity edema that is explained by his bradycardia Abnormal troponin most likely secondary to above history of paroxysmal atrial fibrillation Acute on chronic congestive heart failure secondary to systolic dysfunction Hypertension COPD PAD Valvular heart disease PLAN: Reduce Lasix in view of his rising BUN and creatinine A permanent pacemaker is recommended due to his history of advanced heart block and his cardiomyopathy which will necessitate treatment with beta blockers Objective - Vital Signs Vital signs: Vital Signs Temp 97.8 F 09/12/19 08:00 Pulse 78 09/12/19 08:00 Resp 18 09/12/19 08:00 BP 153/79 09/12/19 08:00 Pulse Ox 95 09/12/19 08:00 Intake & Output 09/11/19 09/12/19 09/12/19 18:59 06:59 18:59 Intake Total 660 540 880 Output Total 850 750 450 Balance -190 -210 430 Weight 95.3 kg Intake: Oral 660 540 880 Output: Urine 850 750 450 Other: Voiding Method Toilet Toilet Urinal Urinal Urinal - Labs CBC & Chem 7: 09/12/19 06:27 09/12/19 06:27 Labs: Abnormal Lab Results - Last 24 Hours (Table) 09/11/19 09/11/19 09/11/19 Range/Units 11:32 16:31 20:30 WBC (3.8-10.6) k/uL RBC (4.30-5.90) m/uL Hgb (13.0-17.5) gm/dL Hct (39.0-53.0) % Neutrophils # (1.3-7.7) k/uL Lymphocytes # (1.0-4.8) k/uL Sodium (137-145) mmol/L Carbon Dioxide (22-30) mmol/L BUN (9-20) mg/dL Creatinine (0.66-1.25) mg/dL Glucose (74-99) mg/dL POC Glucose (mg/dL) 143 H 146 H 176 H (75-99) mg/dL Magnesium (1.6-2.3) mg/dL Total Bilirubin (0.2-1.3) mg/dL ALT (4-49) U/L Total Protein (6.3-8.2) g/dL Albumin (3.5-5.0) g/dL 09/12/19 09/12/19 09/12/19 Range/Units 06:06 06:27 06:27 WBC 20.1 H (3.8-10.6) k/uL RBC 3.76 L (4.30-5.90) m/uL Hgb 10.9 L (13.0-17.5) gm/dL Hct 34.0 L (39.0-53.0) % Neutrophils # 19.5 H (1.3-7.7) k/uL Lymphocytes # 0.2 L (1.0-4.8) k/uL Sodium 136 L (137-145) mmol/L Carbon Dioxide 21 L (22-30) mmol/L BUN 111 H* (9-20) mg/dL Creatinine 2.59 H (0.66-1.25) mg/dL Glucose 133 H (74-99) mg/dL POC Glucose (mg/dL) 144 H (75-99) mg/dL Magnesium 2.6 H (1.6-2.3) mg/dL Total Bilirubin 0.1 L (0.2-1.3) mg/dL ALT 109 H (4-49) U/L Total Protein 6.0 L (6.3-8.2) g/dL Albumin 3.2 L (3.5-5.0) g/dL Microbiology - Last 24 Hours (Table) 09/09/19 16:58 Blood Culture - Preliminary Blood No Growth after 48 hours <Lavon Owusu - Last Filed: 09/13/19 11:59> Objective - Vital Signs Vital signs: Vital Signs Temp 98 F 09/13/19 08:00 Pulse 83 09/13/19 08:00 Resp 18 09/13/19 08:00 BP 173/77 09/13/19 08:00 Pulse Ox 98 09/13/19 00:00 Intake & Output 09/12/19 09/13/19 09/13/19 18:59 06:59 18:59 Intake Total 1360 120 Output Total 750 1100 400 Balance 610 -1100 -280 Weight 94.8 kg Intake: Oral 1360 120 Output: Urine 750 1100 400 Other: Voiding Method Urinal Urinal # Voids 1 1 # Bowel Movements 1 - Labs CBC & Chem 7: 09/12/19 06:27 09/13/19 05:38 Labs: Abnormal Lab Results - Last 24 Hours (Table) 09/12/19 09/13/19 Range/Units 16:29 05:38 Sodium 136 L (137-145) mmol/L Potassium 5.2 H (3.5-5.1) mmol/L BUN 110 H* (9-20) mg/dL Creatinine 2.51 H (0.66-1.25) mg/dL POC Glucose (mg/dL) 169 H (75-99) mg/dL Magnesium 2.5 H (1.6-2.3) mg/dL Microbiology - Last 24 Hours (Table) 09/09/19 16:58 Blood Culture - Preliminary Blood No Growth after 72 hours
--- NOTE | 2019-09-13 11:59 | P.PN ---
<Dipti Mccurdy - Last Filed: 09/13/19 10:26> Subjective This is Dipti Mccurdy PA-C scribing on behalf of Dr. Owusu The patient was interviewed and examined by Dr. Owusu HPI/interval history Patient is an 79-year-old male with a history of paroxysmal atrial fibrillation, hypertension, COPD, PAD, heart failure, and valvular heart disease who presented with complaints of shortness of breath. He was found to have worsening renal fucntion and advanced heart block. A permanent pacemaker was recommended however the patient is refusing at this time. Heart rates are currently in the 70s. Coreg remains on hold. He was switched from IV Lasix to oral Lasix today Continues to deny any dizziness, lightheadedness or syncope. EXAMINATION Patient is afebrile, pulse in the 70s, respirations 18, blood pressure 173/77, oxygen saturation 98% on room air Dr. Owusu saw and examined the patient Patient appears comfortable, lying flat, in no acute distress heart sounds are soft Lungs with crackles at the bilateral bases posteriorly bilateral lower extremity edema REVIEW OF LABS, ECG Potassium 5.2, BUN 110, creatinine 2.51 TSH within normal limits IMPRESSION / ASSESSMENT: Advanced heart block, patient refusing pacemaker Cardiomyopathy with severe LV dysfunction, EF 25-30% Worsening renal function, progressive dyspnea, and lower extremity edema that is explained by his bradycardia Abnormal troponin most likely secondary to above history of paroxysmal atrial fibrillation Acute on chronic congestive heart failure secondary to systolic dysfunction Hypertension, BP elevated COPD PAD Valvular heart disease PLAN: Continue with switching to oral Lasix A permanent pacemaker is recommended due to his history of advanced heart block and his cardiomyopathy which will necessitate treatment with beta blockers Objective - Vital Signs Vital signs: Vital Signs Temp 98 F 09/13/19 08:00 Pulse 83 09/13/19 08:00 Resp 18 09/13/19 08:00 BP 173/77 09/13/19 08:00 Pulse Ox 98 09/13/19 00:00 Intake & Output 09/12/19 09/13/19 09/13/19 18:59 06:59 18:59 Intake Total 1360 Output Total 750 1100 200 Balance 610 -1100 -200 Weight 94.8 kg Intake: Oral 1360 Output: Urine 750 1100 200 Other: Voiding Method Urinal Urinal # Voids 1 1 # Bowel Movements 1 - Labs CBC & Chem 7: 09/12/19 06:27 09/13/19 05:38 Labs: Abnormal Lab Results - Last 24 Hours (Table) 09/12/19 09/12/19 09/13/19 Range/Units 11:27 16:29 05:38 Sodium 136 L (137-145) mmol/L Potassium 5.2 H (3.5-5.1) mmol/L BUN 110 H* (9-20) mg/dL Creatinine 2.51 H (0.66-1.25) mg/dL POC Glucose (mg/dL) 136 H 169 H (75-99) mg/dL Magnesium 2.5 H (1.6-2.3) mg/dL Microbiology - Last 24 Hours (Table) 09/09/19 16:58 Blood Culture - Preliminary Blood No Growth after 72 hours <Lavon Owusu - Last Filed: 09/13/19 11:59> Objective - Vital Signs Vital signs: Vital Signs Temp 98 F 09/13/19 08:00 Pulse 83 09/13/19 08:00 Resp 18 09/13/19 08:00 BP 173/77 09/13/19 08:00 Pulse Ox 98 09/13/19 00:00 Intake & Output 09/12/19 09/13/19 09/13/19 18:59 06:59 18:59 Intake Total 1360 120 Output Total 750 1100 400 Balance 610 -1100 -280 Weight 94.8 kg Intake: Oral 1360 120 Output: Urine 750 1100 400 Other: Voiding Method Urinal Urinal # Voids 1 1 # Bowel Movements 1 - Labs CBC & Chem 7: 09/12/19 06:27 09/13/19 05:38 Labs: Abnormal Lab Results - Last 24 Hours (Table) 09/12/19 09/13/19 Range/Units 16:29 05:38 Sodium 136 L (137-145) mmol/L Potassium 5.2 H (3.5-5.1) mmol/L BUN 110 H* (9-20) mg/dL Creatinine 2.51 H (0.66-1.25) mg/dL POC Glucose (mg/dL) 169 H (75-99) mg/dL Magnesium 2.5 H (1.6-2.3) mg/dL Microbiology - Last 24 Hours (Table) 09/09/19 16:58 Blood Culture - Preliminary Blood No Growth after 72 hours
--- NOTE | 2019-09-13 11:59 | P.PN ---
<Dipti Mccurdy - Last Filed: 09/11/19 08:44> Subjective This is Dipti Mccurdy PA-C scribing on behalf of Dr. Owusu The patient was interviewed and examined by Dr. Owusu HPI/interval history Patient is an 79-year-old male with a history of paroxysmal atrial fibrillation, hypertension, COPD, PAD, heart failure, and valvular heart disease who presented with complaints of shortness of breath. He was found to have worsening renal fucntion and advanced heart block. A permanent pacemaker was recommended however the patient is refusing at this time. His Coreg has been on hold and he remains in 2-1 heart block. Continues to deny any dizziness, lightheadedness or syncope. EXAMINATION Dr. Owusu saw and examined the patient Patient is afebrile, pulse in the 50s, respirations 18, blood pressure 120/60, oxygen saturation 96% liters nasal cannula Patient appears comfortable, in no acute distress heart sounds are soft, bradycardic Lungs are clear to auscultation bilaterally bilateral lower extremity edema REVIEW OF LABS, ECG WBC 17.1, hemoglobin 10.9, platelets 237, potassium 5.3, BUN 99, creatinine 2.78 TSH within normal limits IMPRESSION / ASSESSMENT: Advanced heart block, remains in 2-1 block Cardiomyopathy with severe LV dysfunction, EF 25-30% Worsening renal function, progressive dyspnea, and lower extremity edema that is explained by his bradycardia Abnormal troponin most likely secondary to above history of paroxysmal atrial fibrillation Acute on chronic congestive heart failure secondary to systolic dysfunction Hypertension COPD PAD Valvular heart disease PLAN: Dr. Owusu again discussed recommendations for pacemaker, patient continues to refuse due to fear of the [place] virus Objective - Vital Signs Vital signs: Vital Signs Temp 97.4 F L 09/11/19 04:00 Pulse 70 09/11/19 04:00 Resp 20 09/11/19 04:00 BP 129/60 09/11/19 04:00 Pulse Ox 98 09/11/19 04:00 Intake & Output 09/10/19 09/11/19 09/11/19 18:59 06:59 18:59 Intake Total 600 237 240 Output Total 200 200 200 Balance 400 37 40 Weight 92.2 kg Intake: Oral 600 237 240 Output: Urine 200 200 200 Other: Voiding Method Toilet Toilet Urinal Urinal # Voids 1 0 - Labs CBC & Chem 7: 09/11/19 05:37 09/11/19 05:37 Labs: Abnormal Lab Results - Last 24 Hours (Table) 09/10/19 09/10/19 09/10/19 Range/Units 11:31 12:53 16:39 WBC (3.8-10.6) k/uL RBC (4.30-5.90) m/uL Hgb (13.0-17.5) gm/dL Hct (39.0-53.0) % Neutrophils # (1.3-7.7) k/uL Lymphocytes # (1.0-4.8) k/uL Potassium (3.5-5.1) mmol/L Chloride (98-107) mmol/L Carbon Dioxide (22-30) mmol/L BUN (9-20) mg/dL Creatinine (0.66-1.25) mg/dL Glucose (74-99) mg/dL POC Glucose (mg/dL) 146 H 163 H (75-99) mg/dL Magnesium (1.6-2.3) mg/dL Total Bilirubin (0.2-1.3) mg/dL AST (17-59) U/L ALT (4-49) U/L Troponin I 0.167 H* (0.000-0.034) ng/mL Total Protein (6.3-8.2) g/dL Albumin (3.5-5.0) g/dL Urine Protein (Negative) 09/10/19 09/10/19 09/11/19 Range/Units 20:12 Unknown 05:37 WBC (3.8-10.6) k/uL RBC (4.30-5.90) m/uL Hgb (13.0-17.5) gm/dL Hct (39.0-53.0) % Neutrophils # (1.3-7.7) k/uL Lymphocytes # (1.0-4.8) k/uL Potassium 5.3 H (3.5-5.1) mmol/L Chloride 108 H (98-107) mmol/L Carbon Dioxide 20 L (22-30) mmol/L BUN 99 H (9-20) mg/dL Creatinine 2.78 H (0.66-1.25) mg/dL Glucose 122 H (74-99) mg/dL POC Glucose (mg/dL) 192 H (75-99) mg/dL Magnesium 2.6 H (1.6-2.3) mg/dL Total Bilirubin 0.1 L (0.2-1.3) mg/dL AST 120 H (17-59) U/L ALT 134 H (4-49) U/L Troponin I (0.000-0.034) ng/mL Total Protein 5.8 L (6.3-8.2) g/dL Albumin 3.2 L (3.5-5.0) g/dL Urine Protein Trace H (Negative) 09/11/19 09/11/19 Range/Units 05:37 06:04 WBC 17.1 H (3.8-10.6) k/uL RBC 3.87 L (4.30-5.90) m/uL Hgb 10.9 L (13.0-17.5) gm/dL Hct 35.1 L (39.0-53.0) % Neutrophils # 16.5 H (1.3-7.7) k/uL Lymphocytes # 0.2 L (1.0-4.8) k/uL Potassium (3.5-5.1) mmol/L Chloride (98-107) mmol/L Carbon Dioxide (22-30) mmol/L BUN (9-20) mg/dL Creatinine (0.66-1.25) mg/dL Glucose (74-99) mg/dL POC Glucose (mg/dL) 152 H (75-99) mg/dL Magnesium (1.6-2.3) mg/dL Total Bilirubin (0.2-1.3) mg/dL AST (17-59) U/L ALT (4-49) U/L Troponin I (0.000-0.034) ng/mL Total Protein (6.3-8.2) g/dL Albumin (3.5-5.0) g/dL Urine Protein (Negative) Microbiology - Last 24 Hours (Table) 09/09/19 16:58 Blood Culture - Preliminary Blood No Growth after 24 hours <Lavon Owusu - Last Filed: 09/13/19 11:59> Objective - Vital Signs Vital signs: Vital Signs Temp 98 F 09/13/19 08:00 Pulse 83 09/13/19 08:00 Resp 18 09/13/19 08:00 BP 173/77 09/13/19 08:00 Pulse Ox 98 09/13/19 00:00 Intake & Output 09/12/19 09/13/19 09/13/19 18:59 06:59 18:59 Intake Total 1360 120 Output Total 750 1100 400 Balance 610 -1100 -280 Weight 94.8 kg Intake: Oral 1360 120 Output: Urine 750 1100 400 Other: Voiding Method Urinal Urinal # Voids 1 1 # Bowel Movements 1 - Labs CBC & Chem 7: 09/12/19 06:27 09/13/19 05:38 Labs: Abnormal Lab Results - Last 24 Hours (Table) 09/12/19 09/13/19 Range/Units 16:29 05:38 Sodium 136 L (137-145) mmol/L Potassium 5.2 H (3.5-5.1) mmol/L BUN 110 H* (9-20) mg/dL Creatinine 2.51 H (0.66-1.25) mg/dL POC Glucose (mg/dL) 169 H (75-99) mg/dL Magnesium 2.5 H (1.6-2.3) mg/dL Microbiology - Last 24 Hours (Table) 09/09/19 16:58 Blood Culture - Preliminary Blood No Growth after 72 hours
--- NOTE | 2019-09-13 12:32 | P.PN ---
Subjective Patient is seen in follow-up for acute kidney injury on chronic kidney disease. Renal function is fairly stable. Edema gradually improving. Nonoliguric. Oral intake is good. Vital signs are stable. General: The patient appeared well nourished and normally developed. HEENT: Head exam is unremarkable. Neck is without jugular venous distension. LUNGS: Breath sounds decreased. HEART: Rate and Rhythm are regular. ABDOMEN: Nontender. Nondistended. EXTREMITITES: 1+ edema. Objective - Vital Signs Vital signs: Vital Signs Temp 98 F 09/13/19 08:00 Pulse 83 09/13/19 08:00 Resp 18 09/13/19 08:00 BP 173/77 09/13/19 08:00 Pulse Ox 98 09/13/19 00:00 Intake & Output 09/12/19 09/13/19 09/13/19 18:59 06:59 18:59 Intake Total 1360 120 Output Total 750 1100 400 Balance 610 -1100 -280 Weight 94.8 kg Intake: Oral 1360 120 Output: Urine 750 1100 400 Other: Voiding Method Urinal Urinal # Voids 1 1 # Bowel Movements 1 - Labs CBC & Chem 7: 09/12/19 06:27 09/13/19 05:38 Labs: Abnormal Lab Results - Last 24 Hours (Table) 09/12/19 09/13/19 Range/Units 16:29 05:38 Sodium 136 L (137-145) mmol/L Potassium 5.2 H (3.5-5.1) mmol/L BUN 110 H* (9-20) mg/dL Creatinine 2.51 H (0.66-1.25) mg/dL POC Glucose (mg/dL) 169 H (75-99) mg/dL Magnesium 2.5 H (1.6-2.3) mg/dL Microbiology - Last 24 Hours (Table) 09/09/19 16:58 Blood Culture - Preliminary Blood No Growth after 72 hours Assessment and Plan Plan: assessment: 1. Acute kidney injury mostly prerenal secondary to cardiorenal syndrome. Creatinine was 2.34 on admission and peaked at 2.78 this admission. Fairly stable at 2.51 today. Trace proteinuria noted on UA. No evidence of hydronephrosis noted on kidney ultrasound. Elevated BUN which is partially due to IV steroids. No evidence of GI bleed. 2. Chronic kidney disease stage III with baseline creatinine near 1.5 secondary to nephrosclerosis. 3. Volume overload. Improving with diuresis. 4. Pneumonia maintained on antibiotics. COVID-19 testing negative. 5. Acute on chronic systolic CHF with ejection fraction of 25-30% with moderate aortic stenosis. 6. Advanced heart block. Patient is currently refusing pacemaker insertion. Cardiology following. Plan: Continue oral Lasix 40 mg orally twice daily. Avoid nephrotoxins. Continue losartan for now as blood pressure is stable. Increase dose of hydralazine. Repeat electrolytes in the morning.
--- NOTE | 2019-09-13 12:40 | P.PN ---
Subjective Progress Note Date: 09/13/19 Sean Lin is an 79-year-old male, who presented to [facility] emergency room with a chief complaint of worsening shortness of breath. He was evaluated in the emergency room, preliminary diagnosis in the emergency room was acute on chronic congestive heart failure exacerbation, acute on chronic renal failure, and acute exacerbation of chronic obstructive pulmonary disease, he was started on IV antibiotic, IV steroids, and IV diuretics and was admitted to telemetry floor. Patient was recently admitted to the hospital with similar symptoms, at that time he was diagnosed with acute congestive heart failure exacerbation and evidence of cardiomyopathy, this is a new diagnosis for him, he was started on on diuretics he improved he was discharged home, however his kidney function has worsened since last admission. Nephrology consultation was requested for evaluation. On 09/11/2019 patient was seen and examined on the medical floor he is alert and oriented 3 in no apparent distress he is still complaining of shortness of breath with activity and complaining of lower extremity swelling he has occasional cough otherwise he denies any symptoms there is no fever or chills no headache or dizziness no chest pain no nausea or vomiting no abdominal pain no diarrhea no burning was urination no frequency or urgency and no hematuria On 09/12/2019 patient was seen and examined on the medical floor he is feeling better shortness of breath is improving however he is still complaining of 3+ swelling in bilateral lower extremities otherwise he denies any complaints there is no fever or chills no headache or dizziness no chest pain no cough no nausea or vomiting no abdominal pain no diarrhea no burning with urination no frequency or urgency and no hematuria. On 09/13/2019 patient was seen and examined on the telemetry floor he is alert and oriented 3, he is still complaining of shortness of breath especially with any activity, he is complaining of bilateral lower extremity edema, otherwise he denies any complaints at this time, there is no fever or chills no headache or dizziness no chest pain no cough, no nausea or vomiting no abdominal pain no diarrhea no blood in the stools, no burning with urination no frequency or urgency and no hematuria. Objective - Vital Signs Vital signs: Vital Signs Temp 98 F 09/13/19 08:00 Pulse 83 09/13/19 08:00 Resp 18 09/13/19 08:00 BP 173/77 09/13/19 08:00 Pulse Ox 98 09/13/19 00:00 Intake & Output 09/12/19 09/13/19 09/13/19 18:59 06:59 18:59 Intake Total 1360 120 Output Total 750 1100 400 Balance 610 -1100 -280 Weight 94.8 kg Intake: Oral 1360 120 Output: Urine 750 1100 400 Other: Voiding Method Urinal Urinal # Voids 1 1 # Bowel Movements 1 - Exam In general patient is alert and oriented 3 in no apparent distress HEENT head normocephalic and atraumatic Neck is supple no JVD no goiter no lymphadenopathy Chest exam reveals a few scattered crackles bilaterally no wheezing Cardiac exam reveals regular heart sounds S1 and S2 no gallops no murmurs Abdomen is soft nontender no organomegaly with normal bowel sounds Extremity exam reveals 2+ edema no cyanosis or clubbing Neurological examination reveals no gross focal deficit - Labs CBC & Chem 7: 09/12/19 06:27 09/13/19 05:38 Labs: Abnormal Lab Results - Last 24 Hours (Table) 09/12/19 09/13/19 Range/Units 16:29 05:38 Sodium 136 L (137-145) mmol/L Potassium 5.2 H (3.5-5.1) mmol/L BUN 110 H* (9-20) mg/dL Creatinine 2.51 H (0.66-1.25) mg/dL POC Glucose (mg/dL) 169 H (75-99) mg/dL Magnesium 2.5 H (1.6-2.3) mg/dL Microbiology - Last 24 Hours (Table) 09/09/19 16:58 Blood Culture - Preliminary Blood No Growth after 72 hours Assessment and Plan Assessment: 1. Acute on chronic systolic congestive heart failure exacerbation 2. Acute kidney injury, on top of chronic kidney disease stage III, and evidence of volume overload 3. Possible pneumonia patient presenting with low-grade fever and cough and shortness of breath, chest x-ray at this time does not reveal any clear infiltr ate 4. Mild elevation in troponin levels, no clear evidence of myocardial infarction, cardiology consultation requested 5. Bradycardia cardiology consultation was requested, Coreg is on hold at this time. 6. Acute bronchitis with COPD exacerbation with discontinue IV steroids and start oral prednisone tomorrow continue current IV antibiotics 7. Cardiology recommendation for pacemaker placement discussed with patient, he is not interested, he was counseled in length, however patient does not seem to be interested in having a pacemaker or defibrillator implanted. Medication and labs were reviewed please see orders Cardiology and nephrology consultation requested, input reviewed Will continue with IV Lasix for today Will monitor Recheck labs in a.m. Will follow closely
[2019-09-13] MEDS: hydrALAZINE HCL 25 MG TAB PO SCH ×2 (16:55→21:03)
[2019-09-13] MEDS: LEVOTHYROXINE 88 MCG TAB PO SCH (21:03)
[2019-09-13] MEDS: MULTIVITAMINS, THERA 1 EACH TAB PO SCH (21:03)
[2019-09-13] MEDS: AZITHROMYCIN 500 MG TAB PO SCH (21:03)
[2019-09-13] MEDS: LOSARTAN 50 MG TAB PO SCH (21:04)
[2019-09-14 06:39] LABS: Basophils % (A) 0 %; Eosinophils % (A) 0 %; HCT 34.8 % (39.0-53.0); HGB 10.9 gm/dL (13.0-17.5); Hypochromasia Slight; Lymphocytes # (A) 0.3 k/uL (1.0-4.8); Lymphocytes % (A) 3 %; MCH 28.4 pg (25.0-35.0); MCHC 31.3 g/dL (31.0-37.0); MCV 90.6 fL (80.0-100.0); Mean Platelet Volume 9.3; Monocytes # (A) 0.7 k/uL (0-1.0); Monocytes % (A) 7 %; Neutrophils # (A) 9.7 k/uL (1.3-7.7); Neutrophils % (A) 89 %; Platelet Count 260 k/uL (150-450); RBC 3.84 m/uL (4.30-5.90); RDW 15.1 % (11.5-15.5); WBC 10.9 k/uL (3.8-10.6)
[2019-09-14 06:50] LABS: Calcium 8.6 mg/dL (8.4-10.2); Potassium 5.1 mmol/L (3.5-5.1); Total Bilirubin 0.2 mg/dL (0.2-1.3); Total Protein 5.5 g/dL (6.3-8.2)
[2019-09-14] MEDS: TIOTROPIUM 18 MCG/PUFF INHALER INHALATION SCH (07:37)
[2019-09-14] MEDS: ALBUTEROL HFA INHALER INHALATION SCH ×4 (07:37→20:33)
[2019-09-14] MEDS: predniSONE 20 MG TAB PO SCH ×2 (08:55→08:56)
[2019-09-14] MEDS: FUROSEMIDE 40 MG TAB PO SCH ×2 (08:56→16:16)
[2019-09-14] MEDS: ENOXAPARIN 30 MG/0.3 ML SYRINGE SQ SCH (08:56)
[2019-09-14] MEDS: ASPIRIN 81 MG PO SCH (08:57)
[2019-09-14] MEDS: FERROUS SULFATE 325 MG TAB PO SCH (08:58)
[2019-09-14] MEDS: hydrALAZINE HCL 25 MG TAB PO SCH ×3 (08:58→21:13)
[2019-09-14] MEDS: ISOSORBIDE MONONITRATE ER 30 MG TAB.ER.24H PO SCH (08:59)
--- NOTE | 2019-09-14 12:48 | P.PN ---
Subjective Progress Note Date: 09/14/19 Follow-up for acute kidney injury. Edema improving. Objective - Vital Signs Vital signs: Vital Signs Temp 97.4 F L 09/14/19 12:00 Pulse 84 09/14/19 12:00 Resp 18 09/14/19 12:00 BP 165/73 09/14/19 12:00 Pulse Ox 96 09/14/19 12:00 Intake & Output 09/13/19 09/14/19 09/14/19 18:59 06:59 18:59 Intake Total 480 480 Output Total 700 3300 Balance -220 -2820 Weight 95 kg Intake: Oral 480 480 Output: Urine 700 3300 Other: Voiding Method Urinal Urinal Urinal # Voids 3 - Exam No acute distress S1-S2 heard Decreased breath sounds Abdomen distended Edema - Labs CBC & Chem 7: 09/14/19 05:22 09/14/19 05:22 Labs: Abnormal Lab Results - Last 24 Hours (Table) 09/14/19 09/14/19 Range/Units 05:22 05:22 WBC 10.9 H (3.8-10.6) k/uL RBC 3.84 L (4.30-5.90) m/uL Hgb 10.9 L (13.0-17.5) gm/dL Hct 34.8 L (39.0-53.0) % Neutrophils # 9.7 H (1.3-7.7) k/uL Lymphocytes # 0.3 L (1.0-4.8) k/uL Chloride 110 H (98-107) mmol/L BUN 104 H* (9-20) mg/dL Creatinine 2.30 H (0.66-1.25) mg/dL ALT 81 H (4-49) U/L Total Protein 5.5 L (6.3-8.2) g/dL Albumin 3.0 L (3.5-5.0) g/dL Microbiology - Last 24 Hours (Table) 09/09/19 16:58 Blood Culture - Preliminary Blood No Growth after 96 hours Assessment and Plan Assessment: #1 nonoliguric acute kidney injury secondary to type I cardiorenal syndrome. #2 chronic kidney disease stage III with a baseline creatinine of 1.5 MG per DL. #3 systolic CHF with EF of 25-30% #4 volume overload #5 pneumonia on antibiotics #6 hypertension with chronic kidney disease Plan: #1 continue with Lasix 40 mg twice daily #2 renal function stable avoid nephrotoxic agents #3 supportive care
--- NOTE | 2019-09-14 14:11 | P.PN ---
Subjective Progress Note Date: 09/14/19 This is an 79-year-old gentleman with history of paroxysmal atrial fibrillation, hypertension, COPD, PAD, heart failure and valvular heart disease who presented to the hospital with symptoms of progressively worsening shortness of breath. He was found to have worsening renal function and advanced heart block. He was recommended on several different occasions to undergo implantation of a permanent pacemaker, he continues to refuse at this time and wishes to wait until after the code with 19 issues are over. He continues to have intermittent AV alberto Wenchebach block noted on the telemetry. Blood pressure 160/70 with a heart rate in the 80s, 96% on room air. White blood cell count 10.9, hemoglobin 10.9, platelet count 260. Sodium 139, potassium 5.1, BUN 104 and creatinine 2.3. Objective - Vital Signs Vital signs: Vital Signs Temp 97.4 F L 09/14/19 12:00 Pulse 84 09/14/19 12:00 Resp 18 09/14/19 12:00 BP 165/73 09/14/19 12:00 Pulse Ox 96 09/14/19 12:00 Intake & Output 09/13/19 09/14/19 09/14/19 18:59 06:59 18:59 Intake Total 480 480 Output Total 700 3300 Balance -220 -2820 Weight 95 kg Intake: Oral 480 480 Output: Urine 700 3300 Other: Voiding Method Urinal Urinal Urinal # Voids 3 - Exam Patient is afebrile, pulse in the 80s, respirations 18, blood pressure 164/74, oxygen saturation 94% on room air 79-year-old gentleman in no acute distress at the time of my examination Patient appears comfortable, lying flat, in no acute distress heart sounds are soft, S1 and S2 Lungs with crackles at the bilateral bases posteriorly bilateral lower extremity edema - Labs CBC & Chem 7: 09/14/19 05:22 09/14/19 05:22 Labs: Abnormal Lab Results - Last 24 Hours (Table) 09/14/19 09/14/19 Range/Units 05: 05:22 WBC 10.9 H (3.8-10.6) k/uL RBC 3.84 L (4.30-5.90) m/uL Hgb 10.9 L (13.0-17.5) gm/dL Hct 34.8 L (39.0-53.0) % Neutrophils # 9.7 H (1.3-7.7) k/uL Lymphocytes # 0.3 L (1.0-4.8) k/uL Chloride 110 H (98-107) mmol/L BUN 104 H* (9-20) mg/dL Creatinine 2.30 H (0.66-1.25) mg/dL ALT 81 H (4-49) U/L Total Protein 5.5 L (6.3-8.2) g/dL Albumin 3.0 L (3.5-5.0) g/dL Microbiology - Last 24 Hours (Table) 09/09/19 16:58 Blood Culture - Preliminary Blood No Growth after 96 hours Assessment and Plan Plan: IMPRESSION and plan: #1 Advanced heart block, patient refusing pacemaker #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 He is currently on oral diuretics. Chin used to refuse a pacemaker, states that it will be revisited once the Covid 19 issue is over. DNP note has been reviewed, I agree with a documented findings and plan of care. Patient was seen and examined.
--- NOTE | 2019-09-14 16:17 | P.PN ---
Subjective Progress Note Date: 09/14/19 Sena Lin is an 79-year-old male, who presented to [facility] emergency room with a chief complaint of worsening shortness of breath. He was evaluated in the emergency room, preliminary diagnosis in the emergency room was acute on chronic congestive heart failure exacerbation, acute on chronic renal failure, and acute exacerbation of chronic obstructive pulmonary disease, he was started on IV antibiotic, IV steroids, and IV diuretics and was admitted to telemetry floor. Patient was recently admitted to the hospital with similar symptoms, at that time he was diagnosed with acute congestive heart failure exacerbation and evidence of cardiomyopathy, this is a new diagnosis for him, he was started on on diuretics he improved he was discharged home, however his kidney function has worsened since last admission. Nephrology consultation was requested for evaluation. On 09/11/2019 patient was seen and examined on the medical floor he is alert and oriented 3 in no apparent distress he is still complaining of shortness of breath with activity and complaining of lower extremity swelling he has occasional cough otherwise he denies any symptoms there is no fever or chills no headache or dizziness no chest pain no nausea or vomiting no abdominal pain no diarrhea no burning was urination no frequency or urgency and no hematuria On 09/12/2019 patient was seen and examined on the medical floor he is feeling better shortness of breath is improving however he is still complaining of 3+ swelling in bilateral lower extremities otherwise he denies any complaints there is no fever or chills no headache or dizziness no chest pain no cough no nausea or vomiting no abdominal pain no diarrhea no burning with urination no frequency or urgency and no hematuria. On 09/13/2019 patient was seen and examined on the telemetry floor he is alert and oriented 3, he is still complaining of shortness of breath especially with any activity, he is complaining of bilateral lower extremity edema, otherwise he denies any complaints at this time, there is no fever or chills no headache or dizziness no chest pain no cough, no nausea or vomiting no abdominal pain no diarrhea no blood in the stools, no burning with urination no frequency or urgency and no hematuria. On 09/14/2019 patient was seen and examined on the telemetry floor he is alert and oriented 3 he is still having significant shortness of breath and lower extremity edema his blood pressure is still elevated medications are being adjusted otherwise patient denies any complaints there is no fever or chills no headache or dizziness no chest pain no cough no nausea or vomiting no abdominal pain no diarrhea and no urinary symptoms Objective - Vital Signs Vital signs: Vital Signs Temp 97.9 F 09/14/19 16:00 Pulse 71 09/14/19 16:00 Resp 18 09/14/19 16:00 BP 163/70 09/14/19 16:00 Pulse Ox 94 L 09/14/19 16:00 Intake & Output 09/13/19 09/14/19 09/14/19 18:59 06:59 18:59 Intake Total 480 480 Output Total 700 3300 550 Balance -220 -2801 -637 Weight 95 kg Intake: Oral 480 480 Output: Urine 700 3300 550 Other: Voiding Method Urinal Urinal Urinal # Voids 3 0 - Exam In general patient is alert and oriented 3 in no apparent distress HEENT head normocephalic and atraumatic Neck is supple no JVD no goiter no lymphadenopathy Chest exam reveals a few scattered crackles bilaterally no wheezing Cardiac exam reveals regular heart sounds S1 and S2 no gallops no murmurs Abdomen is soft nontender no organomegaly with normal bowel sounds Extremity exam reveals 2+ edema no cyanosis or clubbing Neurological examination reveals no gross focal deficit - Labs CBC & Chem 7: 09/14/19 05:22 09/14/19 05:22 Labs: Abnormal Lab Results - Last 24 Hours (Table) 09/14/19 09/14/19 Range/Units 05:22 05:22 WBC 10.9 H (3.8-10.6) k/uL RBC 3.84 L (4.30-5.90) m/uL Hgb 10.9 L (13.0-17.5) gm/dL Hct 34.8 L (39.0-53.0) % Neutrophils # 9.7 H (1.3-7.7) k/uL Lymphocytes # 0.3 L (1.0-4.8) k/uL Chloride 110 H (98-107) mmol/L BUN 104 H* (9-20) mg/dL Creatinine 2.30 H (0.66-1.25) mg/dL ALT 81 H (4-49) U/L Total Protein 5.5 L (6.3-8.2) g/dL Albumin 3.0 L (3.5-5.0) g/dL Microbiology - Last 24 Hours (Table) 09/09/19 16:58 Blood Culture - Preliminary Blood No Growth after 96 hours Assessment and Plan Assessment: 1. Acute on chronic systolic congestive heart failure exacerbation 2. Acute kidney injury, on top of chronic kidney disease stage III, and evidence of volume overload 3. Possible pneumonia patient presenting with low-grade fever and cough and shortness of breath, chest x-ray at this time does not reveal any clear infiltrate 4. Mild elevation in troponin levels, no clear evidence of myocardial infarction, cardiology consultation requested 5. Bradycardia cardiology consultation was requested, Coreg is on hold at this time. 6. Acute bronchitis with COPD exacerbation with discontinue IV steroids and start oral prednisone tomorrow continue current IV antibiotics 7. Cardiology recommendation for pacemaker placement discussed with patient, he is not interested, he was counseled in length, however patient does not seem to be interested in having a pacemaker or defibrillator implanted. Medication and labs were reviewed please see orders Cardiology and nephrology consultation requested, input reviewed Will continue with IV Lasix for today Will monitor Recheck labs in a.m. Will follow closely
[2019-09-14] MEDS: LEVOTHYROXINE 88 MCG TAB PO SCH (21:13)
[2019-09-14] MEDS: MULTIVITAMINS, THERA 1 EACH TAB PO SCH (21:13)
[2019-09-14] MEDS: AZITHROMYCIN 500 MG TAB PO SCH (21:13)
[2019-09-14] MEDS: LOSARTAN 50 MG TAB PO SCH (21:14)
[2019-09-15 06:07] LABS: Basophils % (A) 0 %; Eosinophils % (A) 0 %; HCT 34.6 % (39.0-53.0); HGB 10.4 gm/dL (13.0-17.5); Hypochromasia Slight; Lymphocytes # (A) 0.5 k/uL (1.0-4.8); Lymphocytes % (A) 5 %; MCH 27.2 pg (25.0-35.0); MCHC 30.1 g/dL (31.0-37.0); MCV 90.3 fL (80.0-100.0); Mean Platelet Volume 8.9; Monocytes # (A) 0.7 k/uL (0-1.0); Monocytes % (A) 7 %; Neutrophils # (A) 8.6 k/uL (1.3-7.7); Neutrophils % (A) 86 %; Platelet Count 251 k/uL (150-450); RBC 3.84 m/uL (4.30-5.90); RDW 15.4 % (11.5-15.5)
[2019-09-15 06:14] LABS: Albumin 2.9 g/dL (3.5-5.0); Calcium 8.6 mg/dL (8.4-10.2); Potassium 4.7 mmol/L (3.5-5.1); Total Bilirubin 0.2 mg/dL (0.2-1.3); Total Protein 5.5 g/dL (6.3-8.2)
[2019-09-15] MEDS: TIOTROPIUM 18 MCG/PUFF INHALER INHALATION SCH (07:53)
[2019-09-15] MEDS: ALBUTEROL HFA INHALER INHALATION SCH ×4 (07:53→20:40)
[2019-09-15] MEDS: hydrALAZINE HCL 25 MG TAB PO SCH ×3 (09:12→20:43)
[2019-09-15] MEDS: ASPIRIN 81 MG PO SCH ×2 (09:12→17:08)
[2019-09-15] MEDS: FERROUS SULFATE 325 MG TAB PO SCH (09:14)
[2019-09-15] MEDS: FUROSEMIDE 40 MG TAB PO SCH ×2 (09:14→17:50)
[2019-09-15] MEDS: ISOSORBIDE MONONITRATE ER 30 MG TAB.ER.24H PO SCH (09:14)
[2019-09-15] MEDS: ENOXAPARIN 30 MG/0.3 ML SYRINGE SQ SCH (09:14)
--- NOTE | 2019-09-15 13:03 | P.PN ---
Subjective Progress Note Date: 09/15/19 Follow-up for acute kidney injury. Edema improving. Objective - Vital Signs Vital signs: Vital Signs Temp 97.8 F 09/15/19 08:00 Pulse 82 09/15/19 08:00 Resp 18 09/15/19 08:00 BP 163/70 09/15/19 08:00 Pulse Ox 98 09/15/19 08:00 Intake & Output 09/14/19 09/15/19 09/15/19 18:59 06:59 18:59 Intake Total 480 Output Total 2800 2950 Balance -2800 -2470 Weight 94.3 kg Intake: Oral 480 Output: Urine 2800 2950 Other: Voiding Method Urinal Urinal Urinal # Voids 1 2 - Exam No acute distress S1-S2 heard Decreased breath sounds Abdomen distended Edema - Labs CBC & Chem 7: 09/15/19 05:39 09/15/19 05:39 Labs: Abnormal Lab Results - Last 24 Hours (Table) 09/15/19 09/15/19 Range/Units 05:39 05:39 RBC 3.84 L (4.30-5.90) m/uL Hgb 10.4 L (13.0-17.5) gm/dL Hct 34.6 L (39.0-53.0) % MCHC 30.1 L (31.0-37.0) g/dL Neutrophils # 8.6 H (1.3-7.7) k/uL Lymphocytes # 0.5 L (1.0-4.8) k/uL Chloride 109 H (98-107) mmol/L BUN 93 H (9-20) mg/dL Creatinine 2.18 H (0.66-1.25) mg/dL ALT 64 H (4-49) U/L Total Protein 5.5 L (6.3-8.2) g/dL Albumin 2.9 L (3.5-5.0) g/dL Microbiology - Last 24 Hours (Table) 09/09/19 16:58 Blood Culture - Preliminary Blood No Growth after 120 hours Assessment and Plan Assessment: #1 nonoliguric acute kidney injury secondary to type I cardiorenal syndrome. #2 chronic kidney disease stage III with a baseline creatinine of 1.5 MG per DL. #3 systolic CHF with EF of 25-30% #4 volume overload #5 pneumonia on antibiotics #6 hypertension with chronic kidney disease Plan: #1 continue with Lasix 40 mg twice daily #2 renal function stable avoid nephrotoxic agents #3 supportive care
--- NOTE | 2019-09-15 14:03 | P.PN ---
Subjective Progress Note Date: 09/15/19 Sean Lin is an 79-year-old male, who presented to [facility] emergency room with a chief complaint of worsening shortness of breath. He was evaluated in the emergency room, preliminary diagnosis in the emergency room was acute on chronic congestive heart failure exacerbation, acute on chronic renal failure, and acute exacerbation of chronic obstructive pulmonary disease, he was started on IV antibiotic, IV steroids, and IV diuretics and was admitted to telemetry floor. Patient was recently admitted to the hospital with similar symptoms, at that time he was diagnosed with acute congestive heart failure exacerbation and evidence of cardiomyopathy, this is a new diagnosis for him, he was started on on diuretics he improved he was discharged home, however his kidney function has worsened since last admission. Nephrology consultation was requested for evaluation. On 09/11/2019 patient was seen and examined on the medical floor he is alert and oriented 3 in no apparent distress he is still complaining of shortness of breath with activity and complaining of lower extremity swelling he has occasional cough otherwise he denies any symptoms there is no fever or chills no headache or dizziness no chest pain no nausea or vomiting no abdominal pain no diarrhea no burning was urination no frequency or urgency and no hematuria On 09/12/2019 patient was seen and examined on the medical floor he is feeling better shortness of breath is improving however he is still complaining of 3+ swelling in bilateral lower extremities otherwise he denies any complaints there is no fever or chills no headache or dizziness no chest pain no cough no nausea or vomiting no abdominal pain no diarrhea no burning with urination no frequency or urgency and no hematuria. On 09/13/2019 patient was seen and examined on the telemetry floor he is alert and oriented 3, he is still complaining of shortness of breath especially with any activity, he is complaining of bilateral lower extremity edema, otherwise he denies any complaints at this time, there is no fever or chills no headache or dizziness no chest pain no cough, no nausea or vomiting no abdominal pain no diarrhea no blood in the stools, no burning with urination no frequency or urgency and no hematuria. On 09/14/2019 patient was seen and examined on the telemetry floor he is alert and oriented 3 he is still having significant shortness of breath and lower extremity edema his blood pressure is still elevated medications are being adjusted otherwise patient denies any complaints there is no fever or chills no headache or dizziness no chest pain no cough no nausea or vomiting no abdominal pain no diarrhea and no urinary symptoms On 09/15/2019 patient was seen and examined on the medical floor he is alert and oriented 3 he is still complaining of shortness of breath and lower extremity edema otherwise he denies any complaints. Blood pressure is better controlled today however systolic blood pressure is still 155 and diastolic is 80, there is no fever or chills no headache or dizziness no chest pain no no cough no nausea or vomiting no abdominal pain no diarrhea and no urinary symptoms Objective - Vital Signs Vital signs: Vital Signs Temp 97.8 F 09/15/19 08:00 Pulse 82 09/15/19 08:00 Resp 18 09/15/19 08:00 BP 163/70 09/15/19 08:00 Pulse Ox 98 09/15/19 08:00 Intake & Output 09/14/19 09/15/19 09/15/19 18:59 06:59 18:59 Intake Total 480 Output Total 2800 2950 Balance -2800 -2470 Weight 94.3 kg Intake: Oral 480 Output: Urine 2800 2950 Other: Voiding Method Urinal Urinal Urinal # Voids 1 2 - Exam In general patient is alert and oriented 3 in no apparent distress HEENT head normocephalic and atraumatic Neck is supple no JVD no goiter no lymphadenopathy Chest exam reveals a few scattered crackles bilaterally no wheezing Cardiac exam reveals regular heart sounds S1 and S2 no gallops no murmurs Abdomen is soft nontender no organomegaly with normal bowel sounds Extremity exam reveals 2+ edema no cyanosis or clubbing Neurological examination reveals no gross focal deficit - Labs CBC & Chem 7: 09/15/19 05:39 09/15/19 05:39 Labs: Abnormal Lab Results - Last 24 Hours (Table) 09/15/19 09/15/19 Range/Units 05:39 05:39 RBC 3.84 L (4.30-5.90) m/uL Hgb 10.4 L (13.0-17.5) gm/dL Hct 34.6 L (39.0-53.0) % MCHC 30.1 L (31.0-37.0) g/dL Neutrophils # 8.6 H (1.3-7.7) k/uL Lymphocytes # 0.5 L (1.0-4.8) k/uL Chloride 109 H (98-107) mmol/L BUN 93 H (9-20) mg/dL Creatinine 2.18 H (0.66-1.25) mg/dL ALT 64 H (4-49) U/L Total Protein 5.5 L (6.3-8.2) g/dL Albumin 2.9 L (3.5-5.0) g/dL Microbiology - Last 24 Hours (Table) 09/09/19 16:58 Blood Culture - Preliminary Blood No Growth after 120 hours Assessment and Plan Assessment: 1. Acute on chronic systolic congestive heart failure exacerbation 2. Acute kidney injury, on top of chronic kidney disease stage III, and evidence of volume overload 3. Possible pneumonia patient presenting with low-grade fever and cough and shortness of breath, chest x-ray at this time does not reveal any clear infiltrate 4. Mild elevation in troponin levels, no clear evidence of myocardial infarction, cardiology consultation requested 5. Bradycardia cardiology consultation was requested, Coreg is on hold at this time. 6. Acute bronchitis with COPD exacerbation with discontinue IV steroids and start oral prednisone tomorrow continue current IV antibiotics 7. Cardiology recommendation for pacemaker placement discussed with patient, he is not interested, he was counseled in length, however patient does not seem to be interested in having a pacemaker or defibrillator implanted. Medication and labs were reviewed please see orders Cardiology and nephrology consultation requested, input reviewed Will continue with IV Lasix for today Will monitor Recheck labs in a.m. Will follow closely
[2019-09-15] MEDS: INSULIN ASPART (NovoLOG) 100 UNIT/ML VIAL SQ SCH (17:25)
[2019-09-15] MEDS: AZITHROMYCIN 500 MG TAB PO SCH (20:43)
[2019-09-15] MEDS: LEVOTHYROXINE 88 MCG TAB PO SCH (20:43)
[2019-09-15] MEDS: MULTIVITAMINS, THERA 1 EACH TAB PO SCH (20:43)
[2019-09-15] MEDS: LOSARTAN 50 MG TAB PO SCH (20:43)
[2019-09-16 07:27] LABS: Basophils # (A) 0.1 k/uL (0-0.2); Basophils % (A) 1 %; Eosinophils # (A) 0.1 k/uL (0-0.7); Eosinophils % (A) 1 %; HCT 38.9 % (39.0-53.0); HGB 11.9 gm/dL (13.0-17.5); Hypochromasia Slight; Lymphocytes # (A) 0.6 k/uL (1.0-4.8); Lymphocytes % (A) 5 %; MCH 27.6 pg (25.0-35.0); MCHC 30.7 g/dL (31.0-37.0); MCV 90.1 fL (80.0-100.0); Mean Platelet Volume 8.7; Monocytes # (A) 0.9 k/uL (0-1.0); Monocytes % (A) 8 %; Neutrophils # (A) 9.7 k/uL (1.3-7.7); Neutrophils % (A) 84 %; Platelet Count 285 k/uL (150-450); RBC 4.31 m/uL (4.30-5.90); RDW 15.4 % (11.5-15.5); WBC 11.5 k/uL (3.8-10.6)
[2019-09-16 07:41] LABS: Albumin 3.4 g/dL (3.5-5.0); Calcium 9.1 mg/dL (8.4-10.2); Potassium 4.9 mmol/L (3.5-5.1); Total Bilirubin 0.3 mg/dL (0.2-1.3); Total Protein 6.2 g/dL (6.3-8.2)
[2019-09-16] MEDS: ALBUTEROL HFA INHALER INHALATION SCH ×3 (07:50→16:28)
[2019-09-16] MEDS: TIOTROPIUM 18 MCG/PUFF INHALER INHALATION SCH (07:50)
[2019-09-16] MEDS: hydrALAZINE HCL 25 MG TAB PO SCH ×2 (08:52→16:59)
[2019-09-16] MEDS: FUROSEMIDE 40 MG TAB PO SCH ×2 (08:53→16:59)
[2019-09-16] MEDS: ENOXAPARIN 30 MG/0.3 ML SYRINGE SQ SCH (08:53)
[2019-09-16] MEDS: FERROUS SULFATE 325 MG TAB PO SCH (08:53)
[2019-09-16] MEDS: ISOSORBIDE MONONITRATE ER 30 MG TAB.ER.24H PO SCH (08:53)
[2019-09-16] MEDS: predniSONE 20 MG TAB PO SCH (08:53)
[2019-09-16] MEDS: ASPIRIN 81 MG PO SCH (09:02)
[2019-09-16 11:17] VITALS: RESP 18; TEMP 97
[2019-09-16 13:39] VITALS: BMI 30.2
[2019-09-16 14:35] VITALS: BP 157/83; PULSE 84
--- NOTE | 2019-09-16 14:39 | P.DS ---
Providers Date of admission: 09/09/19 18:13 Expected date of discharge: 09/16/19 Attending physician: Alexandra Mitchell Consults: 09/10/19 06:40 Consult Physician Routine Consulting Provider: Lizzeth Rueda Consult Reason/Comments: rhythm heart rate elevated trops Do you want consulting provider notified?: Yes, Notify in am 09/10/19 11:29 Consult Physician Routine Consulting Provider: Stef Rojas Consult Reason/Comments: Acute on chronic renal failure Do you want consulting provider notified?: Yes Primary care physician: Alexandra Mitchell [facility] Course: Diagnosis on discharge: 1. Acute on chronic systolic congestive heart failure exacerbation 2. Acute kidney injury, on top of chronic kidney disease stage III, and evidence of volume overload 3. Possible pneumonia patient presenting with low-grade fever and cough and shortness of breath, chest x-ray at this time does not reveal any clear infiltrate 4. Mild elevation in troponin levels, no clear evidence of myocardial infarction, cardiology consultation requested 5. Bradycardia cardiology consultation was requested, Coreg is on hold at this time. 6. Acute bronchitis with COPD exacerbation with discontinue IV steroids and start oral prednisone tomorrow continue current IV antibiotics 7. Cardiology recommendation for pacemaker placement discussed with patient, he is not interested, he was counseled in length, however patient does not seem to be interested in having a pacemaker or defibrillator implanted. Hospital course: Sean Lin is an 79-year-old male, who presented to [facility] emergency room with a chief complaint of worsening shortness of breath. He was evaluated in the emergency room, preliminary diagnosis in the emergency room was acute on chronic congestive heart failure exacerbation, acute on chronic renal failure, and acute exacerbation of chronic obstructive pulmonary disease, he was started on IV antibiotic, IV steroids, and IV diuretics and was admitted to telemetry floor. Patient was recently admitted to the hospital with similar symptoms, at that time he was diagnosed with acute congestive heart failure exacerbation and evidence of cardiomyopathy, this is a new diagnosis for him, he was started on on diuretics he improved he was discharged home, however his kidney function has worsened since last admission. Nephrology consultation was requested for evaluation. On 09/11/2019 patient was seen and examined on the medical floor he is alert and oriented 3 in no apparent distress he is still complaining of shortness of breath with activity and complaining of lower extremity swelling he has occasional cough otherwise he denies any symptoms there is no fever or chills no headache or dizziness no chest pain no nausea or vomiting no abdominal pain no diarrhea no burning was urination no frequency or urgency and no hematuria On 09/12/2019 patient was seen and examined on the medical floor he is feeling better shortness of breath is improving however he is still complaining of 3+ swelling in bilateral lower extremities otherwise he denies any complaints there is no fever or chills no headache or dizziness no chest pain no cough no nausea or vomiting no abdominal pain no diarrhea no burning with urination no frequency or urgency and no hematuria. On 09/13/2019 patient was seen and examined on the telemetry floor he is alert and oriented 3, he is still complaining of shortness of breath especially with any activity, he is complaining of bilateral lower extremity edema, otherwise he denies any complaints at this time, there is no fever or chills no headache or dizziness no chest pain no cough, no nausea or vomiting no abdominal pain no diarrhea no blood in the stools, no burning with urination no frequency or urgency and no hematuria. On 09/14/2019 patient was seen and examined on the telemetry floor he is alert and oriented 3 he is still having significant shortness of breath and lower extremity edema his blood pressure is still elevated medications are being adjusted otherwise patient denies any complaints there is no fever or chills no headache or dizziness no chest pain no cough no nausea or vomiting no abdominal pain no diarrhea and no urinary symptoms On 09/15/2019 patient was seen and examined on the medical floor he is alert and oriented 3 he is still complaining of shortness of breath and lower extremity edema otherwise he denies any complaints. Blood pressure is better controlled today however systolic blood pressure is still 155 and diastolic is 80, there is no fever or chills no headache or dizziness no chest pain no no cough no nausea or vomiting no abdominal pain no diarrhea and no urinary symptoms On 09/16/2019 patient was seen and examined on the telemetry floor he is alert and oriented 3 in no apparent distress he is still complaining of some shortness of breath with activity and some swelling in bilateral lower extremities however he feels ready to go home. Patient was switched to oral diuretics and is stable, his kidney function is improving, he will be discharged home today he was given a prescription for Lasix 40 mg by mouth twice daily, he also received a prescription for Ceftin 500 mg twice daily for 7 days, Coreg was discontinued due to bradycardia, dose of hydralazine was increased to 75 mg 3 times daily, patient will follow in our office in 2-3 days Patient Condition at Discharge: Fair Plan - Discharge Summary Discharge Rx Participant: No New Discharge Prescriptions: New hydrALAZINE HCL [Apresoline] 75 mg PO TID tab predniSONE [Deltasone] 40 mg PO DAILY tab Furosemide [Lasix] 40 mg PO BID@0900,1600 tab Nitroglycerin Sl Tabs [Nitrostat] 0.4 mg SUBLINGUAL Q5M PRN tab PRN Reason: Chest Pain Albuterol Inhaler [Ventolin Hfa Inhaler] 2 puff INHALATION RT-QID puff Continue Multivitamin [Men's Multi-Vitamin] 1 tab PO HS Telmisartan 80 mg PO HS Levothyroxine Sodium [Synthroid] 88 mcg PO HS Aspirin 81 mg PO DAILY chew Isosorbide Mononitrate ER [Imdur] 30 mg PO DAILY tab.er.24h Ferrous Sulfate [Iron (65 MG Elemental)] 325 mg PO DAILY Cefuroxime Axetil [Ceftin] 500 mg PO BID Discontinued Potassium Chloride ER [K-Dur 20] 10 meq PO HS hydrALAZINE HCL [Apresoline] 50 mg PO TID tab Carvedilol [Coreg] 6.25 mg PO BID-W/MEALS tab Furosemide [Lasix] 40 mg PO BID 30 Days #60 tablet Discharge Medication List Multivitamin [Men's Multi-Vitamin] 1 tab PO HS 12/13/14 [History] Levothyroxine Sodium [Synthroid] 88 mcg PO HS 08/30/19 [History] Telmisartan 80 mg PO HS 08/30/19 [History] Aspirin 81 mg PO DAILY chew 09/02/19 [Rx] Isosorbide Mononitrate ER [Imdur] 30 mg PO DAILY tab.er.24h 09/02/19 [Rx] Cefuroxime Axetil [Ceftin] 500 mg PO BID 09/09/19 [History] Ferrous Sulfate [Iron (65 MG Elemental)] 325 mg PO DAILY 09/09/19 [History] Albuterol Inhaler [Ventolin Hfa Inhaler] 2 puff INHALATION RT-QID puff 09/16/19 [Rx] Furosemide [Lasix] 40 mg PO BID@0900,1600 tab 09/16/19 [Rx] Nitroglycerin Sl Tabs [Nitrostat] 0.4 mg SUBLINGUAL Q5M PRN tab 09/16/19 [Rx] hydrALAZINE HCL [Apresoline] 75 mg PO TID tab 09/16/19 [Rx] predniSONE [Deltasone] 40 mg PO DAILY tab 09/16/19 [Rx] Follow up Appointment(s)/Referral(s): Alexandra Mitchell MD [Primary Care Provider] - 1-2 days (No answer please call to set up follow up appointment with Dr aDrleen Mitchell) Patient Instructions/Handouts: Heart Failure (ER), Heart Block (DC)
--- NOTE | 2019-09-16 16:26 | PN ---
PROGRESS NOTE Patient is seen for followup for acute kidney injury. Renal function has been improving. Serum creatinine down to 1.98 today from 2.5 at peak. Currently patient is maintained on oral Lasix. He is comfortable, denies any significant complaints. He wants to go home. PHYSICAL EXAMINATION: Today blood pressure 155/64, heart rate 82 per minute, he is afebrile. Examination shows bilateral lower extremity edema 2+. SOC ANALYST exam grossly intact. Abdomen is soft, nontender. LABS: Show sodium 140, potassium 4.9, BUN 84, creatinine 1.98, hemoglobin 11.9 g/dL. ASSESSMENT: 1. Acute kidney injury cardiorenal, currently improving. 2. Congestive heart failure, volume overload, systolic, acute on top of chronic, currently improved. 3. Cardiomyopathy, ejection fraction 25%-30%. 4. Pneumonia, maintained on antibiotics. 5. Chronic kidney disease stage III, baseline creatinine 1.5 mg/dL. PLAN: Continue current dose of Lasix. Okay for discharge. Follow up as outpatient in 3 to 4 weeks. MMODL / IJN: [id number] /
== END 2019-09-16 17:57 | disposition home or self-care (01) | DRG 291 ==
LOC: EC 16:06 → 3SCARD 18:13
PROVIDERS: ADMIT Internal Medicine; ATTEND Internal Medicine
DX: I13.0 Hypertensive heart and chronic kidney disease with heart failure and stage 1 through stage 4 chronic kidney disease, or unspecified chronic kidney disease (principal); I50.23 Acute on chronic systolic (congestive) heart failure; J18.9 Pneumonia, unspecified organism; N17.9 Acute kidney failure, unspecified; J44.1 Chronic obstructive pulmonary disease with (acute) exacerbation; J44.0 Chronic obstructive pulmonary disease with (acute) lower respiratory infection; I44.1 Atrioventricular block, second degree; D63.1 Anemia in chronic kidney disease; I42.8 Other cardiomyopathies; I48.0 Paroxysmal atrial fibrillation; I73.9 Peripheral vascular disease, unspecified; N18.3 Chronic kidney disease, stage 3 (moderate); Z20.828 Contact with and (suspected) exposure to other viral communicable diseases; I35.0 Nonrheumatic aortic (valve) stenosis; D50.9 Iron deficiency anemia, unspecified; I25.10 Atherosclerotic heart disease of native coronary artery without angina pectoris; J20.9 Acute bronchitis, unspecified; T38.0X5A Adverse effect of glucocorticoids and synthetic analogues, initial encounter; F41.9 Anxiety disorder, unspecified; K44.9 Diaphragmatic hernia without obstruction or gangrene; R00.1 Bradycardia, unspecified; E07.9 Disorder of thyroid, unspecified; K21.9 Gastro-esophageal reflux disease without esophagitis; T50.2X5A Adverse effect of carbonic-anhydrase inhibitors, benzothiadiazides and other diuretics, initial encounter; R79.89 Other specified abnormal findings of blood chemistry; F17.210 Nicotine dependence, cigarettes, uncomplicated; Z79.82 Long term (current) use of aspirin; Z79.890 Hormone replacement therapy; Z79.899 Other long term (current) drug therapy; Z87.01 Personal history of pneumonia (recurrent); Z87.19 Personal history of other diseases of the digestive system; Z85.828 Personal history of other malignant neoplasm of skin; Z86.19 Personal history of other infectious and parasitic diseases; Z98.49 Cataract extraction status, unspecified eye; Z87.2 Personal history of diseases of the skin and subcutaneous tissue; Z98.890 Other specified postprocedural states; Z88.2 Allergy status to sulfonamides; Z80.8 Family history of malignant neoplasm of other organs or systems; Z80.42 Family history of malignant neoplasm of prostate; Z80.49 Family history of malignant neoplasm of other genital organs; Z80.1 Family history of malignant neoplasm of trachea, bronchus and lung
CPT/HCPCS: 36415; 70450; 71045; 76770; 80048; 80053; 81003; 82550; 82553; 83605; 83735; 84443; 84484; 85025; 85610; 85730; 86140; 87040; 87635; 93005; 94640; 94760; 96361; 96374; 99291

== ENCOUNTER 2019-09-23 17:39 | Inpatient (IN) | payer MEDICARE ==
[2019-09-23] MEDS ORDERED: FUROSEMIDE 10 MG/ML 4 ML VIAL IV STA (17:59)
--- NOTE | 2019-09-23 18:01 | ED ---
SOB HPI - General Chief Complaint: Shortness of Breath Stated Complaint: Shortness of Breath Time Seen by Provider: 09/23/19 17:48 Source: patient, RN notes reviewed Mode of arrival: wheelchair Limitations: no limitations - History of Present Illness Initial Comments: This is a 79-year-old male with a complaints of the pacemaker who states she's not been feeling well for past 2-3-4 weeks he is short of breath and exertional dyspnea is get edema to lower extremities in spite of achy Lasix he is getting worse not better. Denies any chest pain no fevers chills sweats no palpitations no other modifying factors at this time MD Complaint: shortness of breath - Related Data Home Medications Medication Instructions Recorded Confirmed Multivitamin [Men's Multi-Vitamin] 1 tab PO HS 12/13/14 09/09/19 Levothyroxine Sodium [Synthroid] 88 mcg PO HS 08/30/19 09/09/19 Telmisartan 80 mg PO HS 08/30/19 09/09/19 Cefuroxime Axetil [Ceftin] 500 mg PO BID 09/09/19 09/09/19 Ferrous Sulfate [Iron (65 MG 325 mg PO DAILY 09/09/19 09/09/19 Elemental)] Previous Rx's Medication Instructions Recorded Aspirin 81 mg PO DAILY chew 09/02/19 Isosorbide Mononitrate ER [Imdur] 30 mg PO DAILY tab.er.24h 09/02/19 Albuterol Inhaler [Ventolin Hfa 2 puff INHALATION RT-QID puff 09/16/19 Inhaler] Furosemide [Lasix] 40 mg PO BID@0900,1600 tab 09/16/19 Nitroglycerin Sl Tabs [Nitrostat] 0.4 mg SUBLINGUAL Q5M PRN tab 09/16/19 hydrALAZINE HCL [Apresoline] 75 mg PO TID tab 09/16/19 predniSONE [Deltasone] 40 mg PO DAILY tab 09/16/19 Allergies Allergy/AdvReac Type Severity Reaction Status Date / Time Sulfa (Sulfonamide Allergy Rash/Hives Verified 09/23/19 17:46 Antibiotics) Review of Systems ROS Statement: Those systems with pertinent positive or pertinent negative responses have been documented in the HPI. ROS Other: All systems not noted in ROS Statement are negative. Past Medical History Past Medical History: Atrial Fibrillation, Blood Disorder, COPD, GERD/Reflux, GI Bleed, Hypertension, Thyroid Disorder Additional Past Medical History / Comment(s): ANEMIA, HIATAL HERNIA (PER EGD) arrhythmia, skin cancer - RUE, LUE, R episcopal, Nose (sees Dr. Cortez) PAST RT LEG ULCERS, chf History of Any Multi-Drug Resistant Organisms: VRE Date of last positivie culture/infection: 02/24/15 MDRO Source:: Right leg wound Past Surgical History: Adenoidectomy, Tonsillectomy Additional Past Surgical History / Comment(s): hemorrhoidectomy, tennis elbow, EGD. Past Anesthesia/Blood Transfusion Reactions: No Reported Reaction Past Psychological History: No Psychological Hx Reported Smoking Status: Current some day smoker Past Alcohol Use History: None Reported Past Drug Use History: None Reported - Past Family History Mother Family Medical History: No Reported History Daughter(s) History Unknown: Yes Family Medical History: Cancer Additional Family Medical History / Comment(s): uterine/lung/brain CA - current terminal Father History Unknown: Yes Family Medical History: Cancer Additional Family Medical History / Comment(s): prostate CA - from General Exam - General Exam Comments Initial Comments: This is a well-developed well-nourished awake alert oriented times 3 male Limitations: no limitations General appearance: alert, in no apparent distress Head exam: Present: atraumatic, normocephalic, normal inspection Eye exam: Present: normal appearance, PERRL, EOMI. Absent: scleral icterus, conjunctival injection, periorbital swelling ENT exam: Present: normal exam, mucous membranes moist Neck exam: Present: normal inspection, full ROM, other (genitourinary bruits). Absent: tenderness, meningismus, lymphadenopathy Respiratory exam: Present: rales, prolonged expiratory. Absent: respiratory distress, wheezes, rhonchi, stridor Cardiovascular Exam: Present: regular rate, normal rhythm, normal heart sounds. Absent: systolic murmur, diastolic murmur, rubs, gallop, clicks GI/Abdominal exam: Present: soft, normal bowel sounds. Absent: distended, tenderness, guarding, rebound, rigid Extremities exam: Present: full ROM, normal capillary refill, pedal edema. Absent: tenderness, joint swelling, calf tenderness Back exam: Present: normal inspection Neurological exam: Present: alert, oriented X3, CN II-XII intact Psychiatric exam: Present: normal affect, normal mood Skin exam: Present: warm, dry, intact, normal color. Absent: rash Course Vital Signs 09/23/19 17:43 Temperature 98.0 F Pulse Rate 78 Respiratory 18 Rate Blood Pressure 150/65 O2 Sat by Pulse 99 Oximetry Medical Decision Making - Medical Decision Making I did discuss findings with the patient and with Dr. Guardado the patient will be admitted with cardiology and nephrology consultation. - Lab Data Result diagrams: 09/23/19 17:55 09/23/19 17:55 Lab Results 09/23/19 09/23/19 09/23/19 Range/Units 17:55 17:55 17:55 WBC 12.7 H (3.8-10.6) k/uL RBC 3.89 L (4.30-5.90) m/uL Hgb 11.0 L (13.0-17.5) gm/dL Hct 34.9 L (39.0-53.0) % MCV 89.9 (80.0-100.0) fL MCH 28.4 (25.0-35.0) pg MCHC 31.6 (31.0-37.0) g/dL RDW 15.2 (11.5-15.5) % Plt Count 258 (150-450) k/uL Neutrophils % 86 % Lymphocytes % 4 % Monocytes % 6 % Eosinophils % 2 % Basophils % 0 % Neutrophils # 10.8 H (1.3-7.7) k/uL Lymphocytes # 0.5 L (1.0-4.8) k/uL Monocytes # 0.8 (0-1.0) k/uL Eosinophils # 0.2 (0-0.7) k/uL Basophils # 0.0 (0-0.2) k/uL Hypochromasia Slight PT 9.9 (9.0-12.0) sec INR 0.9 (<1.2) APTT 25.0 (22.0-30.0) sec Sodium 141 (137-145) mmol/L Potassium 4.4 (3.5-5.1) mmol/L Chloride 108 H (98-107) mmol/L Carbon Dioxide 25 (22-30) mmol/L Anion Gap 8 mmol/L BUN 75 H (9-20) mg/dL Creatinine 1.95 H (0.66-1.25) mg/dL Est GFR (CKD-EPI)AfAm 37 (>60 ml/min/1.73 sqM) Est GFR (CKD-EPI)NonAf 32 (>60 ml/min/1.73 sqM) Glucose 106 H (74-99) mg/dL Plasma Lactic Acid Nacho (0.7-2.0) mmol/L Calcium 8.8 (8.4-10.2) mg/dL Magnesium 2.2 (1.6-2.3) mg/dL Total Bilirubin 0.4 (0.2-1.3) mg/dL AST 25 (17-59) U/L ALT 35 (4-49) U/L Alkaline Phosphatase 72 (38-126) U/L Creatine Kinase 48 L (55-170) U/L Troponin I (0.000-0.034) ng/mL NT-Pro-B Natriuret Pep pg/mL Total Protein 6.2 L (6.3-8.2) g/dL Albumin 3.5 (3.5-5.0) g/dL 09/23/19 09/23/19 09/23/19 Range/Units 17:55 17:55 17:55 WBC (3.8-10.6) k/uL RBC (4.30-5.90) m/uL Hgb (13.0-17.5) gm/dL Hct (39.0-53.0) % MCV (80.0-100.0) fL MCH (25.0-35.0) pg MCHC (31.0-37.0) g/dL RDW (11.5-15.5) % Plt Count (150-450) k/uL Neutrophils % % Lymphocytes % % Monocytes % % Eosinophils % % Basophils % % Neutrophils # (1.3-7.7) k/uL Lymphocytes # (1.0-4.8) k/uL Monocytes # (0-1.0) k/uL Eosinophils # (0-0.7) k/uL Basophils # (0-0.2) k/uL Hypochromasia PT (9.0-12.0) sec INR (<1.2) APTT (22.0-30.0) sec Sodium (137-145) mmol/L Potassium (3.5-5.1) mmol/L Chloride (98-107) mmol/L Carbon Dioxide (22-30) mmol/L Anion Gap mmol/L BUN (9-20) mg/dL Creatinine (0.66-1.25) mg/dL Est GFR (CKD-EPI)AfAm (>60 ml/min/1.73 sqM) Est GFR (CKD-EPI)NonAf (>60 ml/min/1.73 sqM) Glucose (74-99) mg/dL Plasma Lactic Acid Nacho 1.0 (0.7-2.0) mmol/L Calcium (8.4-10.2) mg/dL Magnesium (1.6-2.3) mg/dL Total Bilirubin (0.2-1.3) mg/dL AST (17-59) U/L ALT (4-49) U/L Alkaline Phosphatase (38-126) U/L Creatine Kinase (55-170) U/L Troponin I 0.108 H* (0.000-0.034) ng/mL NT-Pro-B Natriuret Pep 77724 pg/mL Total Protein (6.3-8.2) g/dL Albumin (3.5-5.0) g/dL - EKG Data -: EKG Interpreted by Me (Sinus rhythm with second-degree AV block Mobitz type 1) EKG Comments: QRS 152 QT since QTC 436/446) right block left anterior fascicular block and minimal voltage criteria for LVH - Radiology Data Radiology results: report reviewed, image reviewed (I did review the imaging and report no acute findings on x-ray. He is only) Critical Care Time Critical Care Time: Yes Total Critical Care Time: 31 Critical Care Time: 31 minutes of critical care time which includes initial presentation with history physical labs x-rays multiple reevaluation the patient the usual charting that was available discussed with patient and the admitting physician admission orders and documentation of the above Disposition Clinical Impression: Diastolic congestive heart failure, Peripheral edema, Renal insufficiency syndrome Disposition: ADMITTED IP TO THIS [facility] Condition: Fair Referrals: Alexandra Mitchell MD [Primary Care Provider] - 1-2 days
[2019-09-23 18:10] LABS: Basophils % (A) 0 %; Eosinophils # (A) 0.2 k/uL (0-0.7); Eosinophils % (A) 2 %; HCT 34.9 % (39.0-53.0); Hypochromasia Slight; Lymphocytes # (A) 0.5 k/uL (1.0-4.8); Lymphocytes % (A) 4 %; MCH 28.4 pg (25.0-35.0); MCHC 31.6 g/dL (31.0-37.0); MCV 89.9 fL (80.0-100.0); Mean Platelet Volume 9.1; Monocytes # (A) 0.8 k/uL (0-1.0); Monocytes % (A) 6 %; Neutrophils # (A) 10.8 k/uL (1.3-7.7); Neutrophils % (A) 86 %; Platelet Count 258 k/uL (150-450); RBC 3.89 m/uL (4.30-5.90); RDW 15.2 % (11.5-15.5); WBC 12.7 k/uL (3.8-10.6)
--- NOTE | 2019-09-23 18:16 | XR ---
EXAMINATION TYPE: XR chest 2V DATE OF EXAM: 09/23/2019 COMPARISON: Chest x-ray September 09, 2019. HISTORY: Cough and shortness of breath TECHNIQUE: Frontal and lateral views of the chest are obtained. FINDINGS: There is chronic parenchymal change without suspicious focal air space opacity, pleural effusion, or pneumothorax seen. The cardiac silhouette size remains enlarged. The osseous structures are demineralized. Degenerative change bilateral shoulders at the glenohumeral joint noted. IMPRESSION: Chronic changes and cardiomegaly without acute pulmonary process.
[2019-09-23 18:17] LABS: Albumin 3.5 g/dL (3.5-5.0); Calcium 8.8 mg/dL (8.4-10.2); Magnesium 2.2 mg/dL (1.6-2.3); Potassium 4.4 mmol/L (3.5-5.1); Total Bilirubin 0.4 mg/dL (0.2-1.3); Total Protein 6.2 g/dL (6.3-8.2)
[2019-09-23 18:24] LABS: INR 0.9 (<1.2); Prothrombin Time 9.9 sec (9.0-12.0)
[2019-09-23] MEDS ORDERED: NITROGLYCERIN SL TABS 0.4 MG TAB SUBLINGUAL PRN (19:35)
[2019-09-23] MEDS: MULTIVITAMINS, THERA 1 EACH TAB PO SCH (21:06)
[2019-09-23] MEDS: LEVOTHYROXINE 88 MCG TAB PO SCH (21:06)
[2019-09-23] MEDS: NICOTINE 14MG/24HR PATCH TRANSDERM SCH (21:06)
[2019-09-23] MEDS: hydrALAZINE HCL 25 MG TAB PO SCH (21:08)
[2019-09-23] MEDS: LOSARTAN 50 MG TAB PO SCH (21:08)
[2019-09-23] MEDS: HEPARIN SODIUM,PORCINE 5,000 UNIT/ML 1 ML VIAL SQ SCH (21:09)
[2019-09-23] MEDS: ALBUTEROL HFA INHALER INHALATION SCH (21:16)
[2019-09-24] MEDS: ALBUTEROL HFA INHALER INHALATION SCH ×4 (08:17→21:00)
[2019-09-24] MEDS ORDERED: FUROSEMIDE 40 MG TAB PO SCH ×2 (09:00)
--- NOTE | 2019-09-24 10:10 | P.NPCON ---
History of Present Illness - Reason for Consult chronic renal failure - History of Present Illness reason for consultation: Chronic kidney disease History of present illness: Patient is a 79-year-old male seen in renal consultation for chronic kidney disease. Patient is chronic kidney disease stage III with baseline creatinine in the range of 1.5-2 secondary to nephrosclerosis. Patient presented to the hospital due to worsening shortness of breath and edema over the last 3-4 days. Patient states he's been taking Lasix 40 mg orally twice daily. He admits to good urine output. Denies any hematuria or dysuria. No vomiting or diarrhea. Oral intake is good. Denies use of nonsteroidals. He states he does not weigh himself at home but has noticed progressively worsening of edema in his lower e xtremities. Hemodynamically stable. Chest x-ray revealed no acute pulmonary process. Denies cough. No fever or chills. No abdominal pain. Recent kidney ultrasound revealed no evidence of hydronephrosis. patient has history of mixed systolic and diastolic CHF with moderate aortic stenosis. Ejection fraction 25- 30%. Patient also has history of heart block and has been refusing pacemaker placement. Vital signs are stable. General: The patient appeared well nourished and normally developed. HEENT: Head exam is unremarkable. Neck is without jugular venous distension. LUNGS: Breath sounds decreased. HEART: Rate and Rhythm are regular. First and second heart sounds normal. No murmurs, rubs or gallops. ABDOMEN: Soft, nontender. EXTREMITITES: 2+ edema. Past Medical History Past Medical History: Atrial Fibrillation, Blood Disorder, Heart Failure, COPD, GERD/Reflux, GI Bleed, Hypertension, Thyroid Disorder Additional Past Medical History / Comment(s): ANEMIA, HIATAL HERNIA (PER EGD) arrhythmia, skin cancer - RUE, LUE, R jehovah's witness, Nose (sees Dr. Cortez) PAST RT LEG ULCERS, chf History of Any Multi-Drug Resistant Organisms: VRE Date of last positivie culture/infection: 02/24/15 MDRO Source:: Right leg wound Past Surgical History: Adenoidectomy, Tonsillectomy Additional Past Surgical History / Comment(s): hemorrhoidectomy, tennis elbow, EGD. Past Anesthesia/Blood Transfusion Reactions: No Reported Reaction Past Psychological History: No Psychological Hx Reported Smoking Status: Former smoker Past Alcohol Use History: None Reported Additional Past Alcohol Use History / Comment(s): STARTED SMOKIN G AT AGE 17, TRYING TO QUIT NOW 1 CIGARETTE A DAY RECENTLY Past Drug Use History: None Reported - Past Family History Mother Family Medical History: No Reported History Daughter(s) History Unknown: Yes Family Medical History: Cancer Additional Family Medical History / Comment(s): uterine/lung/brain CA - current terminal Father History Unknown: Yes Family Medical History: Cancer Additional Family Medical History / Comment(s): prostate CA - from Medications and Allergies Home Medications Medication Instructions Recorded Confirmed Type Multivitamin [Men's Multi-Vitamin] 1 tab PO HS 12/13/14 09/23/19 History Levothyroxine Sodium [Synthroid] 88 mcg PO HS 08/30/19 09/23/19 History Telmisartan 80 mg PO HS 08/30/19 09/23/19 History Isosorbide Mononitrate ER [Imdur] 30 mg PO DAILY tab.er.24h 09/02/19 09/23/19 Rx Cefuroxime Axetil [Ceftin] 500 mg PO BID 09/09/19 09/23/19 History Ferrous Sulfate [Iron (65 MG 325 mg PO DAILY 09/09/19 09/23/19 History Elemental)] Albuterol Inhaler [Ventolin Hfa 2 puff INHALATION RT-QID puff 09/16/19 09/23/19 Rx Inhaler] Furosemide [Lasix] 40 mg PO BID@0900,1600 tab 09/16/19 09/23/19 Rx Nitroglycerin Sl Tabs [Nitrostat] 0.4 mg SUBLINGUAL Q5M PRN tab 09/16/19 09/23/19 Rx hydrALAZINE HCL [Apresoline] 75 mg PO TID tab 09/16/19 09/23/19 Rx predniSONE See Taper PO DAILY 09/23/19 09/23/19 History Allergies Allergy/AdvReac Type Severity Reaction Status Date / Time Sulfa (Sulfonamide Allergy Rash/Hives Verified 09/23/19 19:40 Antibiotics) Physical Exam Vitals: Vital Signs Temp Pulse Pulse Resp BP BP Pulse Ox 09/24/19 08:00 98.7 F 60 16 143/63 96 09/24/19 04:00 98.5 F 70 18 146/66 95 09/24/19 00:00 98.6 F 55 L 20 134/53 96 09/23/19 20:32 98.1 F 71 20 129/110 94 L 09/23/19 19:49 73 18 146/82 98 09/23/19 17:43 98.0 F 78 18 150/65 99 Intake and Output 09/23/19 09/24/19 09/24/19 22:59 06:59 14:59 Intake Total 240 Output Total 350 650 350 Balance -350 -650 -110 Intake: Oral 240 Output: Urine 350 650 350 Other: Voiding Method Urinal Incontinent Weight 90.718 kg 90.1 kg 90.1 kg Results - Lab Results Most recent lab results Calcium 8.8 mg/dL (8.4-10.2) 09/23/19 17:55 Magnesium 2.2 mg/dL (1.6-2.3) 09/23/19 17:55 09/23/19 17:55 09/23/19 17:55 Assessment and Plan Plan: assessment: 1. Chronic kidney disease stage III with baseline creatinine in the range of 1.5-2 secondary to nephrosclerosis. GFR near baseline. 2. Acute on chronic systolic and diastolic CHF with ejection fraction of 25- 30%. 3. Moderate aortic stenosis. 4. Volume overload. 5. Heart block. Patient has been refusing pacemaker placement. 6. Hypertension with chronic kidney disease. Controlled. Plan: I will change Lasix to 40 mg IV twice daily. Low-salt diet and 1200 mL fluid restriction. Continue to monitor renal function and urine output. Repeat electrical lites in the morning. Thank you for the consultation. I will continue to follow the patient with you during his hospital stay.
[2019-09-24] MEDS: predniSONE 20 MG TAB PO SCH (10:27)
[2019-09-24] MEDS: hydrALAZINE HCL 25 MG TAB PO SCH ×3 (10:27→22:58)
[2019-09-24] MEDS: NICOTINE 14MG/24HR PATCH TRANSDERM SCH (10:27)
[2019-09-24] MEDS: ISOSORBIDE MONONITRATE ER 30 MG TAB.ER.24H PO SCH (10:27)
[2019-09-24] MEDS: FERROUS SULFATE 325 MG TAB PO SCH (10:27)
[2019-09-24] MEDS: HEPARIN SODIUM,PORCINE 5,000 UNIT/ML 1 ML VIAL SQ SCH ×2 (10:28→20:20)
[2019-09-24] MEDS: FUROSEMIDE 10 MG/ML 4 ML VIAL IV SCH ×2 (10:34→20:19)
[2019-09-24] MEDS: ASPIRIN 81 MG PO SCH (10:36)
--- NOTE | 2019-09-24 12:49 | CONS ---
CONSULTATION CHIEF COMPLAINT: Bradycardia Mr. iLn is an 79-year-old gentleman with history of paroxysmal atrial fibrillation, hypertension, coronary artery disease, diastolic heart failure, who was recently discharged home from the hospital. Comes back in saying that he is not feeling well and he is somewhat fatigued, tired. and short of breath. At his last admission, he had a second-degree heart block and was advised permanent pacemaker. The patient opted not to undergo permanent pacemaker. He also had a third-degree heart block. On this admission we are dealing with more or less the same problems. His EKG shows second- degree heart block with intermittent shows second-degree heart block. He is intermittently developing third-degree heart his potassium is normal but BUN is elevated at 75, creatinine is 1.9. I talked to patient about undergoing a permanent pacemaker. He does not want to. He understands risks, benefits. So we will continue with the supportive care. The patient is hemodynamically stable, tolerating the conduction problem well. He seems intravascularly volume-depleted, secondary to diuresis at home. I am going to stop it at this time, given the severe prerenal azotemia. PAST MEDICAL HISTORY: Significant for chronic diastolic heart failure, hypertension, renal failure, paroxysmal atrial fibrillation and complete heart block. Patient is allergic to SULFA. MEDICATIONS: Medications at home included prednisone, Apresoline, Synthroid, Imdur, Lasix, Pepcid, albuterol. ALLERGIES: To SULFA. FAMILY HISTORY: Negative for premature coronary artery disease. SOCIAL HISTORY: Negative for current smoking, EtOH abuse, or drug abuse. REVIEW OF SYSTEMS: HEENT: Unremarkable. CARDIAC: As described above. RESPIRATORY: As described above. GI; Negative. GENITOURINARY: Negative. ALLERGY/IMMUNOLOGY: Negative. SKIN: Negative. MUSCULOSKELETAL: Significant for arthritis. PSYCHOSOCIAL: Negative. ENDOCRINE: Negative. DERMATOLOGICAL: Negative. CONSTITUTIONAL: Negative. WOOD MACHINIST APPRENTICE: Negative. PHYSICAL EXAM: Heart rate is 60 beats per minute. Blood pressure is 140/60, respiratory rate is 18, O2 saturation is 96%. There is no jugular venous distention. Chest exam reveals diminished air entry at the bases. Heart exam reveals first and second heart sounds. No gallop. There is a systolic murmur at the apex. Abdomen is soft. Exam of extremities did not reveal any edema. Peripheral pulses are palpable. Exam of the extremities reveals mild edema. Peripheral pulses are palpable. LABS: Show a hemoglobin of 11, potassium is 4.4, BUN is 25, creatinine is 1.9. Troponins are elevated at 0.1, 0.4 and 0.1 and BNP is elevated at 1. ASSESSMENT: 1. High-grade AV block. 2. Chronic renal failure. 3. Elevated troponin secondary to renal failure elevated BNP not consistent with a diagnosis of congestive heart failure. PLAN: Hold the Lasix, hold off beta blockers and tension channel blockers. Continue rest of his medications. MMODL / IJN: [id number] /
--- NOTE | 2019-09-24 14:59 | P.HPIM ---
History of Present Illness H&P Date: 09/24/19 Chief Complaint: Shortness of breath Sean Lin is an 79-year-old male who presented to [facility] emergency room with a chief complaint of worsening shortness of breath, patient has a known history of congestive heart failure, echocardiogram done last month revealed left ventricular systolic function severely impaired with ejection fraction of 25-30% , patient also had evidence of diastolic dysfunction, he also has known history of high-grade AV block, he refused pacemaker placement in the past. He also has a known history of chronic renal failure, his baseline creatinine is 1.5-2. Patient was recently admitted to the hospital with similar symptoms, he was discharged home in good condition, he returns to [facility] with worsening shortness of breath, he also had evidence of elevated troponin in the emergency room he denies any chest pain, he had evidence of fluid overload, he was admitted to telemetry floor for further evaluation and treatment, cardiology consultation and nephrology consultations were requested. Past Medical History Past Medical History: Atrial Fibrillation, Blood Disorder, Heart Failure, COPD, GERD/Reflux, GI Bleed, Hypertension, Thyroid Disorder Additional Past Medical History / Comment(s): ANEMIA, HIATAL HERNIA (PER EGD) arrhythmia, skin cancer - RUE, LUE, R sabianist, Nose (sees Dr. Cortez) PAST RT LEG ULCERS, chf History of Any Multi-Drug Resistant Organisms: VRE Date of last positivie culture/infection: 02/24/15 MDRO Source:: Right leg wound Past Surgical History: Adenoidectomy, Tonsillectomy Additional Past Surgical History / Comment(s): hemorrhoidectomy, tennis elbow, EGD. Past Anesthesia/Blood Transfusion Reactions: No Reported Reaction Past Psychological History: No Psychological Hx Reported Smoking Status: Former smoker Past Alcohol Use History: None Reported Additional Past Alcohol Use History / Comment(s): STARTED SMOKIN G AT AGE 17, TRYING TO QUIT NOW 1 CIGARETTE A DAY RECENTLY Past Drug Use History: None Reported - Past Family History Mother Family Medical History: No Reported History Daughter(s) History Unknown: Yes Family Medical History: Cancer Additional Family Medical History / Comment(s): uterine/lung/brain CA - current terminal Father History Unknown: Yes Family Medical History: Cancer Additional Family Medical History / Comment(s): prostate CA - from Medications and Allergies Home Medications Medication Instructions Recorded Confirmed Type Multivitamin [Men's Multi-Vitamin] 1 tab PO HS 12/13/14 09/23/19 History Levothyroxine Sodium [Synthroid] 88 mcg PO HS 08/30/19 09/23/19 History Telmisartan 80 mg PO HS 08/30/19 09/23/19 History Isosorbide Mononitrate ER [Imdur] 30 mg PO DAILY tab.er.24h 09/02/19 09/23/19 Rx Cefuroxime Axetil [Ceftin] 500 mg PO BID 09/09/19 09/23/19 History Ferrous Sulfate [Iron (65 MG 325 mg PO DAILY 09/09/19 09/23/19 History Elemental)] Albuterol Inhaler [Ventolin Hfa 2 puff INHALATION RT-QID puff 09/16/19 09/23/19 Rx Inhaler] Furosemide [Lasix] 40 mg PO BID@0900,1600 tab 09/16/19 09/23/19 Rx Nitroglycerin Sl Tabs [Nitrostat] 0.4 mg SUBLINGUAL Q5M PRN tab 09/16/19 09/23/19 Rx hydrALAZINE HCL [Apresoline] 75 mg PO TID tab 09/16/19 09/23/19 Rx predniSONE See Taper PO DAILY 09/23/19 09/23/19 History Allergies Allergy/AdvReac Type Severity Reaction Status Date / Time Sulfa (Sulfonamide Allergy Rash/Hives Verified 09/23/19 19:40 Antibiotics) Physical Exam Vitals: Vital Signs Temp Pulse Pulse Resp BP BP Pulse Ox 09/24/19 08:00 98.7 F 60 16 143/63 96 09/24/19 04:00 98.5 F 70 18 146/66 95 09/24/19 00:00 98.6 F 55 L 20 134/53 96 09/23/19 20:32 98.1 F 71 20 129/110 94 L 09/23/19 19:49 73 18 146/82 98 09/23/19 17:43 98.0 F 78 18 150/65 99 Intake and Output 09/23/19 09/24/19 09/24/19 22:59 06:59 14:59 Intake Total 480 Output Total 350 650 350 Balance -350 -650 130 Intake: Oral 480 Output: Urine 350 650 350 Other: Voiding Method Urinal Incontinent Weight 90.718 kg 90.1 kg 90.1 kg In general patient is alert and oriented 3 in no apparent distress HEENT head normocephalic and atraumatic Neck is supple no JVD no goiter no lymphadenopathy Chest exam reveals a scattered crackles in both bases no wheezing Cardiac exam reveals regular heart sounds S1 and S2 no gallops no murmurs Abdomen is soft nontender no organomegaly with normal bowel sounds Extremity exam reveals 3+ edema no cyanosis or clubbing Neurological examination reveals no gross focal deficit Results CBC & Chem 7: 09/23/19 17:55 09/23/19 17:55 Labs: Abnormal Lab Results - Last 24 Hours (Table) 09/23/19 09/23/19 09/23/19 Range/Units 17:55 17:55 17:55 WBC 12.7 H (3.8-10.6) k/uL RBC 3.89 L (4.30-5.90) m/uL Hgb 11.0 L (13.0-17.5) gm/dL Hct 34.9 L (39.0-53.0) % Neutrophils # 10.8 H (1.3-7.7) k/uL Lymphocytes # 0.5 L (1.0-4.8) k/uL Chloride 108 H (98-107) mmol/L BUN 75 H (9-20) mg/dL Creatinine 1.95 H (0.66-1.25) mg/dL Glucose 106 H (74-99) mg/dL Creatine Kinase 48 L (55-170) U/L Troponin I 0.108 H* (0.000-0.034) ng/mL Total Protein 6.2 L (6.3-8.2) g/dL 09/23/19 09/24/19 Range/Units 23:31 05:53 WBC (3.8-10.6) k/uL RBC (4.30-5.90) m/uL Hgb (13.0-17.5) gm/dL Hct (39.0-53.0) % Neutrophils # (1.3-7.7) k/uL Lymphocytes # (1.0-4.8) k/uL Chloride (98-107) mmol/L BUN (9-20) mg/dL Creatinine (0.66-1.25) mg/dL Glucose (74-99) mg/dL Creatine Kinase (55-170) U/L Troponin I 0.110 H* 0.108 H* (0.000-0.034) ng/mL Total Protein (6.3-8.2) g/dL Thrombosis Risk Factor Assmnt - Choose All That Apply Each Factor Represents 1 point: Abnormal pulmonary function (COPD), Obesity (BMI >25), Swollen legs (current) Each Risk Factor Represents 3 Points: Age 75 years or older Thrombosis Risk Factor Assessment Total Risk Factor Score: 6 Thrombosis Risk Factor Assessment Level: High Risk Assessment and Plan Plan: 1. 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 Chronic kidney disease stage III 3. Moderate aortic stenosis 4. History of high grade AV block, patient refused pacemaker placement repeatedly in the past. 5. Elevated troponin level, no chest pain, doubt myocardial infarction, cardiology consultation requested 6. Elevated white blood count at 12.7 on admission Will check urine analysis to rule out any infectious process, chest x-ray on admission did not reveal any evidence of infection, Covid 19 testing on presentation negative. At this time nephrology consultation reviewed, patient was started on IV Lasix 40 mg twice daily, home medications resumed, will follow closely.
[2019-09-24] MEDS: LOSARTAN 50 MG TAB PO SCH (20:20)
[2019-09-24] MEDS: MULTIVITAMINS, THERA 1 EACH TAB PO SCH (20:20)
[2019-09-24] MEDS: LEVOTHYROXINE 88 MCG TAB PO SCH (20:20)
[2019-09-25 06:39] LABS: Albumin 3.1 g/dL (3.5-5.0); Calcium 8.4 mg/dL (8.4-10.2); Magnesium 2.1 mg/dL (1.6-2.3); Potassium 4.2 mmol/L (3.5-5.1); Total Bilirubin 0.3 mg/dL (0.2-1.3); Total Protein 5.7 g/dL (6.3-8.2)
[2019-09-25 06:53] LABS: Basophils % (A) 0 %; Eosinophils # (A) 0.1 k/uL (0-0.7); Eosinophils % (A) 1 %; HCT 32.5 % (39.0-53.0); HGB 10.6 gm/dL (13.0-17.5); Lymphocytes # (A) 0.4 k/uL (1.0-4.8); Lymphocytes % (A) 4 %; MCH 28.9 pg (25.0-35.0); MCHC 32.5 g/dL (31.0-37.0); MCV 88.9 fL (80.0-100.0); Mean Platelet Volume 8.9; Monocytes # (A) 0.6 k/uL (0-1.0); Monocytes % (A) 6 %; Neutrophils # (A) 9.1 k/uL (1.3-7.7); Neutrophils % (A) 88 %; Platelet Count 233 k/uL (150-450); RBC 3.66 m/uL (4.30-5.90); RDW 15.2 % (11.5-15.5); WBC 10.3 k/uL (3.8-10.6)
[2019-09-25] MEDS: ALBUTEROL HFA INHALER INHALATION SCH ×4 (07:54→19:47)
[2019-09-25] MEDS: FUROSEMIDE 10 MG/ML 4 ML VIAL IV SCH ×2 (08:52→20:06)
[2019-09-25] MEDS: FERROUS SULFATE 325 MG TAB PO SCH (08:57)
[2019-09-25] MEDS: ASPIRIN 81 MG PO SCH ×2 (08:57→09:00)
[2019-09-25] MEDS: HEPARIN SODIUM,PORCINE 5,000 UNIT/ML 1 ML VIAL SQ SCH ×2 (08:57→20:06)
[2019-09-25] MEDS: NICOTINE 14MG/24HR PATCH TRANSDERM SCH (08:57)
[2019-09-25] MEDS: hydrALAZINE HCL 25 MG TAB PO SCH ×3 (08:57→23:11)
[2019-09-25] MEDS: predniSONE 20 MG TAB PO SCH (08:57)
[2019-09-25] MEDS: ISOSORBIDE MONONITRATE ER 30 MG TAB.ER.24H PO SCH (08:58)
--- NOTE | 2019-09-25 11:59 | P.PN ---
Subjective Patient is seen in follow-up for chronic kidney disease stage III. Renal function is stable. Edema little better today. Good urine output. No vomiting or diarrhea. No chest pain. Vital signs are stable. General: The patient appeared well nourished and normally developed. HEENT: Head exam is unremarkable. Neck is without jugular venous distension. LUNGS: Lungs are clear to auscultation and percussion. Breath sounds decreased. HEART: Rate and Rhythm are regular. ABDOMEN: Non-tender and non-distended. EXTREMITITES: 2+ edema. Objective - Vital Signs Vital signs: Vital Signs Temp 97.8 F 09/25/19 08:00 Pulse 74 09/25/19 08:00 Resp 18 09/25/19 08:00 BP 149/69 09/25/19 08:00 Pulse Ox 99 09/25/19 08:00 Intake & Output 09/24/19 09/25/19 09/25/19 18:59 06:59 18:59 Intake Total 720 100 360 Output Total 700 600 Balance 20 -500 360 Weight 90.1 kg 95 kg Intake: Oral 720 100 360 Output: Urine 700 600 Other: # Voids 2 - Labs CBC & Chem 7: 09/25/19 05:34 09/25/19 05:34 Labs: Abnormal Lab Results - Last 24 Hours (Table) 09/25/19 09/25/19 Range/Units 05:34 05:34 RBC 3.66 L (4.30-5.90) m/uL Hgb 10.6 L (13.0-17.5) gm/dL Hct 32.5 L (39.0-53.0) % Neutrophils # 9.1 H (1.3-7.7) k/uL Lymphocytes # 0.4 L (1.0-4.8) k/uL BUN 66 H (9-20) mg/dL Creatinine 1.95 H (0.66-1.25) mg/dL Glucose 104 H (74-99) mg/dL Total Protein 5.7 L (6.3-8.2) g/dL Albumin 3.1 L (3.5-5.0) g/dL Assessment and Plan Plan: assessment: 1. Chronic kidney disease stage III with baseline creatinine in the range of 1.5-2 secondary to nephrosclerosis. GFR near baseline. 2. Acute on chronic systolic and diastolic CHF with ejection fraction of 25- 30%. 3. Moderate aortic stenosis. 4. Volume overload. 5. Heart block. Patient has been refusing pacemaker placement. Card etiology following. 6. Hypertension with chronic kidney disease. Controlled. Plan: Continue Lasix 40 mg IV twice daily. Add metolazone 5 mg once daily. Low-salt diet and 1200 mL fluid restriction. Continue to monitor renal function and urine output. Repeat electrolytes in the morning.
--- NOTE | 2019-09-25 15:19 | P.PN ---
Subjective Progress Note Date: 09/25/19 Sean Lin is an 79-year-old male who presented to [facility] emergency room with a chief complaint of worsening shortness of breath, patient has a known history of congestive heart failure, echocardiogram done last month revealed left ventricular systolic function severely impaired with ejection fraction of 25-30% , patient also had evidence of diastolic dysfunction, he also has known history of high-grade AV block, he refused pacemaker placement in the past. He also has a known history of chronic renal failure, his baseline creatinine is 1.5-2. Patient was recently admitted to the hospital with similar symptoms, he was discharged home in good condition, he returns to [facility] with worsening shortness of breath, he also had evidence of elevated troponin in the emergency room he denies any chest pain, he had evidence of fluid overload, he was admitted to telemetry floor for further evaluation and treatment, cardiology consultation and nephrology consultations were requested. On 09/25/2019 patient was seen and examined on the telemetry floor he is alert and oriented 3 in no apparent distress, his shortness of breath and lower extremity edema has improved, he is followed by urology and is maintained on IV Lasix and metolazone was added to his regimen. Patient is now agreeable to having a pacemaker placed, there is no fever or chills no headache or dizziness no chest pain, he has shortness of breath and occasional cough there is no nausea or vomiting no abdominal pain no diarrhea and no urinary symptoms Objective - Vital Signs Vital signs: Vital Signs Temp 98.1 F 09/25/19 12:00 Pulse 66 09/25/19 12:00 Resp 18 09/25/19 12:00 BP 145/65 09/25/19 12:00 Pulse Ox 97 09/25/19 12:00 Intake & Output 09/24/19 09/25/19 09/25/19 18:59 06:59 18:59 Intake Total 720 100 840 Output Total 700 600 Balance 20 -500 840 Weight 90.1 kg 95 kg Intake: Oral 720 100 840 Output: Urine 700 600 Other: # Voids 2 - Exam In general patient is alert and oriented 3 in no apparent distress HEENT head normocephalic and atraumatic Neck is supple no JVD no goiter no lymphadenopathy Chest exam reveals a scattered crackles in both bases no wheezing Cardiac exam reveals regular heart sounds S1 and S2 no gallops no murmurs Abdomen is soft nontender no organomegaly with normal bowel sounds Extremity exam reveals 3+ edema no cyanosis or clubbing Neurological examination reveals no gross focal deficit - Labs CBC & Chem 7: 09/25/19 05:34 09/25/19 05:34 Labs: Abnormal Lab Results - Last 24 Hours (Table) 09/25/19 09/25/19 Range/Units 05:34 05:34 RBC 3.66 L (4.30-5.90) m/uL Hgb 10.6 L (13.0-17.5) gm/dL Hct 32.5 L (39.0-53.0) % Neutrophils # 9.1 H (1.3-7.7) k/uL Lymphocytes # 0.4 L (1.0-4.8) k/uL BUN 66 H (9-20) mg/dL Creatinine 1.95 H (0.66-1.25) mg/dL Glucose 104 H (74-99) mg/dL Total Protein 5.7 L (6.3-8.2) g/dL Albumin 3.1 L (3.5-5.0) g/dL Assessment and Plan Plan: 1. 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 Chronic kidney disease stage III 3. Moderate aortic stenosis 4. History of high grade AV block, patient refused pacemaker placement repeatedly in the past. 5. Elevated troponin level, no chest pain, doubt myocardial infarction, cardiology consultation requested 6. Elevated white blood count at 12.7 on admission Will check urine analysis to rule out any infectious process, chest x-ray on admission did not reveal any evidence of infection, Covid 19 testing on presentation negative. At this time nephrology consultation reviewed, patient was started on IV Lasix 40 mg twice daily, home medications resumed, Patient is now agreeable to have the pacemaker placed, I have spoken was Dr. Francoise yung and he will come and see patient and arrange for pacemaker placement. will follow closely.
--- NOTE | 2019-09-25 15:37 | PN ---
PROGRESS NOTE Sean is an 79-year-old gentleman who is admitted to hospital for symptomatic bradycardia and chronic renal failure. Patient opted not to undergo a permanent pacemaker at last visit. He is still ambivalent about it. PHYSICAL EXAM: Heart rate is 70 beats per minute, blood pressure is 146/64, respiratory rate is 18. Chest exam reveals good air entry bilaterally. Heart exam reveals first and second heart sounds. No gallop. Has an ejection systolic murmur in the aortic area. Abdomen is soft. Exam of extremities did not reveal any edema. Peripheral pulses are felt. ASSESSMENT: Symptomatic high-grade AV block. PLAN: Whenever patient makes up his mind, he will undergo permanent pacemaker. If he decides not to, we should discharge him home. MMODL / IJN: [id number] /
[2019-09-25] MEDS: METOLAZONE 5 MG TAB PO SCH (15:39)
[2019-09-25] MEDS: LEVOTHYROXINE 88 MCG TAB PO SCH (20:06)
[2019-09-25] MEDS: LOSARTAN 50 MG TAB PO SCH (20:07)
[2019-09-25] MEDS: MULTIVITAMINS, THERA 1 EACH TAB PO SCH (20:07)
[2019-09-26 06:39] LABS: Basophils % (A) 0 %; Eosinophils % (A) 0 %; HCT 34.9 % (39.0-53.0); Lymphocytes # (A) 0.6 k/uL (1.0-4.8); Lymphocytes % (A) 5 %; MCH 28.2 pg (25.0-35.0); MCHC 31.5 g/dL (31.0-37.0); MCV 89.5 fL (80.0-100.0); Mean Platelet Volume 8.8; Monocytes # (A) 0.5 k/uL (0-1.0); Monocytes % (A) 5 %; Neutrophils % (A) 87 %; Platelet Count 225 k/uL (150-450); RDW 15.1 % (11.5-15.5); WBC 10.4 k/uL (3.8-10.6)
[2019-09-26 06:58] LABS: Albumin 3.3 g/dL (3.5-5.0); Magnesium 2.1 mg/dL (1.6-2.3); Potassium 4.2 mmol/L (3.5-5.1); Total Bilirubin 0.3 mg/dL (0.2-1.3); Total Protein 6.1 g/dL (6.3-8.2)
[2019-09-26] MEDS: ALBUTEROL HFA INHALER INHALATION SCH ×4 (07:59→19:19)
[2019-09-26] MEDS: ISOSORBIDE MONONITRATE ER 30 MG TAB.ER.24H PO SCH (08:43)
[2019-09-26] MEDS: predniSONE 20 MG TAB PO SCH (08:43)
[2019-09-26] MEDS: hydrALAZINE HCL 25 MG TAB PO SCH ×3 (08:43→20:21)
[2019-09-26] MEDS: NICOTINE 14MG/24HR PATCH TRANSDERM SCH (08:43)
[2019-09-26] MEDS: FUROSEMIDE 10 MG/ML 4 ML VIAL IV SCH ×2 (08:43→20:20)
[2019-09-26] MEDS: FERROUS SULFATE 325 MG TAB PO SCH (08:43)
[2019-09-26] MEDS: ASPIRIN 81 MG PO SCH (08:43)
[2019-09-26] MEDS: HEPARIN SODIUM,PORCINE 5,000 UNIT/ML 1 ML VIAL SQ SCH ×2 (08:43→20:21)
[2019-09-26] MEDS: METOLAZONE 5 MG TAB PO SCH (08:44)
--- NOTE | 2019-09-26 12:21 | P.PN ---
Subjective Patient is seen in follow-up for chronic kidney disease stage III. Renal function is stable. Edema improved. Good urine output. No vomiting or di arrhea. No chest pain. Vital signs are stable. General: The patient appeared well nourished and normally developed. HEENT: Head exam is unremarkable. Neck is without jugular venous distension. LUNGS: Lungs are clear to auscultation and percussion. Breath sounds decreased. HEART: Rate and Rhythm are regular. ABDOMEN: Non-tender and non-distended. EXTREMITITES: 1+ edema. Objective - Vital Signs Vital signs: Vital Signs Temp 98.2 F 09/26/19 08:00 Pulse 72 09/26/19 08:00 Resp 16 09/26/19 08:00 BP 147/69 09/26/19 08:00 Pulse Ox 96 09/26/19 08:00 Intake & Output 09/25/19 09/26/19 09/26/19 18:59 06:59 18:59 Intake Total 1320 250 Balance 1320 250 Weight 91.4 kg Intake: Oral 1320 250 Other: Voiding Method Urinal Incontinent # Voids 0 - Labs CBC & Chem 7: 09/26/19 06:20 09/26/19 06:20 Labs: Abnormal Lab Results - Last 24 Hours (Table) 09/26/19 09/26/19 Range/Units 06:20 06:20 RBC 3.90 L (4.30-5.90) m/uL Hgb 11.0 L (13.0-17.5) gm/dL Hct 34.9 L (39.0-53.0) % Neutrophils # 9.0 H (1.3-7.7) k/uL Lymphocytes # 0.6 L (1.0-4.8) k/uL BUN 70 H (9-20) mg/dL Creatinine 2.02 H (0.66-1.25) mg/dL Total Protein 6.1 L (6.3-8.2) g/dL Albumin 3.3 L (3.5-5.0) g/dL Assessment and Plan Plan: assessment: 1. Chronic kidney disease stage III with baseline creatinine in the range of 1. 5-2 secondary to nephrosclerosis. GFR near baseline. 2. Acute on chronic systolic and diastolic CHF with ejection fraction of 25- 30%. 3. Moderate aortic stenosis. 4. Volume overload. Improving with diuresis. 5. Heart block. Patient has been refusing pacemaker placement. Card etiology following. 6. Hypertension with chronic kidney disease. Controlled. Plan: Continue Lasix 40 mg IV twice daily - can likely transition over to oral diuretics tomorrow. Maintain metolazone 5 mg once daily. Low-salt diet and 1200 mL fluid restriction. Continue to monitor renal function and urine output. Repeat electrolytes in the morning.
--- NOTE | 2019-09-26 13:15 | P.PN ---
Subjective Progress Note Date: 09/26/19 This is an 79-year-old gentleman with history of paroxysmal atrial fibrillation, hypertension, COPD, PAD, heart failure and valvular heart disease who presented to the hospital with symptoms of progressively worsening shortness of breath. He had a recent admission to the hospital at which time he was found to have worsening renal function and advanced heart block. He was recommended on several different occasions to undergo implantation of a permanent pacemaker, but refused, and he continues to refuse at this time. He again had presented to the hospital with symptoms of weakness, was found to be again in high degree AV block and was symptomatic. His blood pressure this morning 144/60 with a heart rate in the 60s to 70s, 93% on room air. White blood cell count 10.4, hemoglobin 11.0, platelet count 225. Sodium 138, potassium 4.2, BUN 70, creatinine 2.0. Objective - Vital Signs Vital signs: Vital Signs Temp 98.2 F 09/26/19 12:00 Pulse 72 09/26/19 12:00 Resp 16 09/26/19 12:00 BP 144/65 09/26/19 12:00 Pulse Ox 93 L 09/26/19 12:00 Intake & Output 09/25/19 09/26/19 09/26/19 18:59 06:59 18:59 Intake Total 1320 250 Output Total 600 Balance 1320 250 -600 Weight 91.4 kg Intake: Oral 1320 250 Output: Urine 600 Other: Voiding Method Urinal Incontinent # Voids 0 0 - Exam Patient is afebrile, pulse in the 60s, respirations 18, blood pressure 144/60, oxygen saturation 94% on room air 79-year-old gentleman in no acute distress at the time of my examination Patient appears comfortable, lying flat, in no acute distress heart sounds are soft, S1 and S2, systolic murmur heard Lungs with crackles at the bilateral bases posteriorly bilateral lower extremity edema - Labs CBC & Chem 7: 09/26/19 06:20 09/26/19 06:20 Labs: Abnormal Lab Results - Last 24 Hours (Table) 09/26/19 09/26/19 Range/Units : 06:20 RBC 3.90 L (4.30-5.90) m/uL Hgb 11.0 L (13.0-17.5) gm/dL Hct 34.9 L (39.0-53.0) % Neutrophils # 9.0 H (1.3-7.7) k/uL Lymphocytes # 0.6 L (1.0-4.8) k/uL BUN 70 H (9-20) mg/dL Creatinine 2.02 H (0.66-1.25) mg/dL Total Protein 6.1 L (6.3-8.2) g/dL Albumin 3.3 L (3.5-5.0) g/dL Assessment and Plan Plan: IMPRESSION and plan: #1 Advanced heart block, patient refusing pacemaker #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, EF 25-30% #3 Worsening renal function, progressive dyspnea, and lower extremity edema that is explained by his bradycardia #4 Abnormal troponin most likely secondary to above, not suggestive of acute coronary syndrome #5 history of paroxysmal atrial fibrillation #6 Acute on chronic congestive heart failure secondary to systolic dysfunction #7 Hypertension #8 COPD #9 PAD #10 Valvular heart disease Plan From cardiology's perspective, patient continues to refuse undergoing permanent pacemaker implantation, nephrology will continue current dose of IV Lasix, check lytes BUN and creatinine in the morning. DNP note has been reviewed, I agree with a documented findings and plan of care. Patient was seen and examined.
[2019-09-26] MEDS ORDERED: LACTULOSE 20 GM/30 ML CUP PO ONE (16:22)
--- NOTE | 2019-09-26 16:26 | P.PN ---
Subjective Progress Note Date: 09/26/19 Sean Lin is an 79-year-old male who presented to [facility] emergency room with a chief complaint of worsening shortness of breath, patient has a known history of congestive heart failure, echocardiogram done last month revealed left ventricular systolic function severely impaired with ejection fraction of 25-30% , patient also had evidence of diastolic dysfunction, he also has known history of high-grade AV block, he refused pacemaker placement in the past. He also has a known history of chronic renal failure, his baseline creatinine is 1.5-2. Patient was recently admitted to the hospital with similar symptoms, he was discharged home in good condition, he returns to [facility] with worsening shortness of breath, he also had evidence of elevated troponin in the emergency room he denies any chest pain, he had evidence of fluid overload, he was admitted to telemetry floor for further evaluation and treatment, cardiology consultation and nephrology consultations were requested. On 09/25/2019 patient was seen and examined on the telemetry floor he is alert and oriented 3 in no apparent distress, his shortness of breath and lower extremity edema has improved, he is followed by urology and is maintained on IV Lasix and metolazone was added to his regimen. Patient is now agreeable to having a pacemaker placed, there is no fever or chills no headache or dizziness no chest pain, he has shortness of breath and occasional cough there is no nausea or vomiting no abdominal pain no diarrhea and no urinary symptoms. On 09/26/2019 patient was seen and examined on the telemetry floor, he is alert and oriented 3 in no apparent distress, he is complaining of constipation, he reports improvement in his shortness of breath and lower extremity edema, otherwise he denies any complaints there is no fever or chills no headache or dizziness no chest pain no nausea or vomiting no abdominal pain no diarrhea no burning was urination no frequency or urgency and no hematuria, creatinine is up to 2.0. Patient states that Dr. Owusu came in and talked to him about pacemaker placement, he is now convinced that he needs it, he is willing to proceed. Patient states that Dr. Owusu told him that procedure will be scheduled for Monday. Objective - Vital Signs Vital signs: Vital Signs Temp 98.2 F 09/26/19 12:00 Pulse 72 05/14/20 12:00 Resp 16 09/26/19 12:00 BP 144/65 09/26/19 12:00 Pulse Ox 93 L 09/26/19 12:00 Intake & Output 09/25/19 09/26/19 09/26/19 18:59 06:59 18:59 Intake Total 1320 250 236 Output Total 600 Balance 1320 250 -364 Weight 91.4 kg Intake: Oral 1320 250 236 Output: Urine 600 Other: Voiding Method Urinal Incontinent # Voids 0 0 - Exam In general patient is alert and oriented 3 in no apparent distress HEENT head normocephalic and atraumatic Neck is supple no JVD no goiter no lymphadenopathy Chest exam reveals a scattered crackles in both bases no wheezing Cardiac exam reveals regular heart sounds S1 and S2 no gallops no murmurs Abdomen is soft nontender no organomegaly with normal bowel sounds Extremity exam reveals 3+ edema no cyanosis or clubbing Neurological examination reveals no gross focal deficit - Labs CBC & Chem 7: 09/26/19 06:20 09/26/19 06:20 Labs: Abnormal Lab Results - Last 24 Hours (Table) 09/26/19 09/26/19 Range/Units 06:20 06:20 RBC 3.90 L (4.30-5.90) m/uL Hgb 11.0 L (13.0-17.5) gm/dL Hct 34.9 L (39.0-53.0) % Neutrophils # 9.0 H (1.3-7.7) k/uL Lymphocytes # 0.6 L (1.0-4.8) k/uL BUN 70 H (9-20) mg/dL Creatinine 2.02 H (0.66-1.25) mg/dL Total Protein 6.1 L (6.3-8.2) g/dL Albumin 3.3 L (3.5-5.0) g/dL Assessment and Plan Plan: 1. 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 Chronic kidney disease stage III 3. Moderate aortic stenosis 4. History of high grade AV block, patient refused pacemaker placement repeatedly in the past. 5. Elevated troponin level, no chest pain, doubt myocardial infarction, cardiology consultation requested 6. Elevated white blood count at 12.7 on admission Will check urine analysis to rule out any infectious process, chest x-ray on admission did not reveal any evidence of infection, Covid 19 testing on presentation negative. 7. Constipation will give 1 dose of lactulose At this time nephrology consultation reviewed, patient was started on IV Lasix 40 mg twice daily, home medications resumed, Patient is now agreeable to have the pacemaker placed, I have spoken was Dr. Owusu personality and he will come and see patient and arrange for pacemaker placement. Patient states that Dr. Owusu came in today and talk to him he is willing now to proceed with pacemaker placement and this will be scheduled for Monday per patient. will follow closely.
[2019-09-26] MEDS: LOSARTAN 50 MG TAB PO SCH (20:21)
[2019-09-26] MEDS: LEVOTHYROXINE 88 MCG TAB PO SCH (20:21)
[2019-09-26] MEDS: MULTIVITAMINS, THERA 1 EACH TAB PO SCH (20:21)
[2019-09-26] MEDS: ZOLPIDEM 5 MG TAB PO PRN (23:01)
[2019-09-27 07:38] LABS: Basophils % (A) 0 %; Eosinophils # (A) 0.1 k/uL (0-0.7); Eosinophils % (A) 0 %; HCT 36.8 % (39.0-53.0); HGB 11.1 gm/dL (13.0-17.5); Lymphocytes # (A) 0.6 k/uL (1.0-4.8); Lymphocytes % (A) 5 %; MCH 26.9 pg (25.0-35.0); MCHC 30.2 g/dL (31.0-37.0); MCV 89.1 fL (80.0-100.0); Mean Platelet Volume 8.3; Monocytes # (A) 0.8 k/uL (0-1.0); Monocytes % (A) 6 %; Neutrophils # (A) 10.4 k/uL (1.3-7.7); Neutrophils % (A) 87 %; Platelet Count 233 k/uL (150-450); RBC 4.13 m/uL (4.30-5.90)
[2019-09-27 07:49] LABS: Albumin 3.4 g/dL (3.5-5.0); Calcium 9.2 mg/dL (8.4-10.2); Potassium 4.7 mmol/L (3.5-5.1); Total Bilirubin 0.3 mg/dL (0.2-1.3); Total Protein 6.1 g/dL (6.3-8.2)
[2019-09-27] MEDS: ISOSORBIDE MONONITRATE ER 30 MG TAB.ER.24H PO SCH (08:33)
[2019-09-27] MEDS: ASPIRIN 81 MG PO SCH ×2 (08:33→08:40)
[2019-09-27] MEDS: NICOTINE 14MG/24HR PATCH TRANSDERM SCH (08:33)
[2019-09-27] MEDS: predniSONE 20 MG TAB PO SCH (08:33)
[2019-09-27] MEDS: FERROUS SULFATE 325 MG TAB PO SCH (08:33)
[2019-09-27] MEDS: FUROSEMIDE 10 MG/ML 4 ML VIAL IV SCH (08:33)
[2019-09-27] MEDS: METOLAZONE 5 MG TAB PO SCH (08:33)
[2019-09-27] MEDS: hydrALAZINE HCL 25 MG TAB PO SCH ×3 (08:33→20:47)
[2019-09-27] MEDS: HEPARIN SODIUM,PORCINE 5,000 UNIT/ML 1 ML VIAL SQ SCH ×2 (08:34→20:46)
[2019-09-27] MEDS: ALBUTEROL HFA INHALER INHALATION SCH ×4 (08:47→19:29)
[2019-09-27] MEDS ORDERED: ceFAZolin 1,000 MG in SODIUM CHLORIDE 0.9% IRRIGATIO 250 ML IRRIGATION ONE (08:56)
[2019-09-27] MEDS ORDERED: FUROSEMIDE 40 MG TAB PO SCH (09:00)
[2019-09-27] MEDS ORDERED: SODIUM CHLORIDE 0.9% 1,000 ML IV SCH (09:00)
--- NOTE | 2019-09-27 11:29 | P.PN ---
Subjective Progress Note Date: 09/27/19 This is an 79-year-old gentleman with history of paroxysmal atrial fibrillation, hypertension, COPD, PAD, heart failure and valvular heart disease who presented to the hospital with symptoms of progressively worsening shortness of breath. He had a recent admission to the hospital at which time he was found to have worsening renal function and advanced heart block. He was recommended on several different occasions to undergo implantation of a permanent pacemaker, but refused, and he continues to refuse at this time. He again had presented to the hospital with symptoms of weakness, was found to be again in high degree AV block and was symptomatic. His blood pressure this morning 144/60 with a heart rate in the 60s to 70s, 93% on room air. White blood cell count 10.4, hemoglobin 11.0, platelet count 225. Sodium 138, potassium 4.2, BUN 70, creatinine 2.0. 09/27/2019 Patient was seen and examined this morning. Feels well, I had a lengthy discussion with him yesterday afternoon, regarding the device implantation, patient had several concerns and questions, after the discussion the patient has agreed to undergo implantation of a bi-V device. This will be scheduled tomorrow with Dr. Owusu around [address] Owusu also came in to speak with the patient last evening. Blood pressure 122/60, heart rate 68, 97% on room air. White blood cell count 12.0, hemoglobin 11, platelet count 233. Sodium 136, potassium 4.7, BUN 81 and creatinine 2.4. We will hold the patient's Lasix to daily. Objective - Vital Signs Vital signs: Vital Signs Temp 98.1 F 09/27/19 08:00 Pulse 68 09/27/19 08:00 Resp 16 09/27/19 08:00 BP 122/60 09/27/19 08:00 Pulse Ox 97 09/27/19 08:00 Intake & Output 09/26/19 09/27/19 09/27/19 18:59 06:59 18:59 Intake Total 236 780 476 Output Total 900 1000 200 Balance -664 -220 276 Weight 86.8 kg Intake: Oral 236 780 476 Output: Urine 900 1000 200 Other: Voiding Method Urinal Urinal Incontinent Incontinent # Voids 0 1 - Exam Patient is afebrile, pulse in the 60s, respirations 18, blood pressure 144/60, oxygen saturation 94% on room air 79-year-old gentleman in no acute distress at the time of my examination Patient appears comfortable, lying flat, in no acute distress heart sounds are soft, S1 and S2, systolic murmur heard Lungs with crackles at the bilateral bases posteriorly bilateral lower extremity edema - Labs CBC & Chem 7: 09/27/19 06:52 09/27/19 06:52 Labs: Abnormal Lab Results - Last 24 Hours (Table) 09/27/19 09/27/19 Range/Units 06:52 06:52 WBC 12.0 H (3.8-10.6) k/uL RBC 4.13 L (4.30-5.90) m/uL Hgb 11.1 L (13.0-17.5) gm/dL Hct 36.8 L (39.0-53.0) % MCHC 30.2 L (31.0-37.0) g/dL Neutrophils # 10.4 H (1.3-7.7) k/uL Lymphocytes # 0.6 L (1.0-4.8) k/uL Sodium 136 L (137-145) mmol/L BUN 81 H (9-20) mg/dL Creatinine 2.47 H (0.66-1.25) mg/dL Total Protein 6.1 L (6.3-8.2) g/dL Albumin 3.4 L (3.5-5.0) g/dL Assessment and Plan Plan: IMPRESSION and plan: #1 Advanced heart block, patient refusing pacemaker #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 This will be performed tomorrow by Dr. Owusu around 11 AM. We will continue to follow. DNP note has been reviewed, I agree with a documented findings and plan of care. Patient was seen and examined.
--- NOTE | 2019-09-27 12:52 | P.PN ---
Subjective Patient is seen in follow-up for chronic kidney disease stage III. Renal function a little worse today which is due to diuresis. Edema improved. Good urine output. No vomiting or diarrhea. No chest pain. Vital signs are stable. General: The patient appeared well nourished and normally developed. HEENT: Head exam is unremarkable. Neck is without jugular venous distension. LUNGS: Lungs are clear to auscultation and percussion. Breath sounds decreased. HEART: Rate and Rhythm are regular. ABDOMEN: Non-tender and non-distended. EXTREMITITES: 1+ edema. Objective - Vital Signs Vital signs: Vital Signs Temp 98.1 F 09/27/19 08:00 Pulse 68 09/27/19 08:00 Resp 16 09/27/19 08:00 BP 122/60 09/27/19 08:00 Pulse Ox 97 09/27/19 08:00 Intake & Output 09/26/19 09/27/19 09/27/19 18:59 06:59 18:59 Intake Total 236 780 476 Output Total 900 1000 200 Balance -664 -220 276 Weight 86.8 kg Intake: Oral 236 780 476 Output: Urine 900 1000 200 Other: Voiding Method Urinal Urinal Incontinent Incontinent # Voids 0 1 - Labs CBC & Chem 7: 09/27/19 06:52 09/27/19 06:52 Labs: Abnormal Lab Results - Last 24 Hours (Table) 09/27/19 09/27/19 Range/Units 06:52 06:52 WBC 12.0 H (3.8-10.6) k/uL RBC 4.13 L (4.30-5.90) m/uL Hgb 11.1 L (13.0-17.5) gm/dL Hct 36.8 L (39.0-53.0) % MCHC 30.2 L (31.0-37.0) g/dL Neutrophils # 10.4 H (1.3-7.7) k/uL Lymphocytes # 0.6 L (1.0-4.8) k/uL Sodium 136 L (137-145) mmol/L BUN 81 H (9-20) mg/dL Creatinine 2.47 H (0.66-1.25) mg/dL Total Protein 6.1 L (6.3-8.2) g/dL Albumin 3.4 L (3.5-5.0) g/dL Assessment and Plan Plan: assessment: 1. Chronic kidney disease stage III with baseline creatinine in the range of 1.5-2 secondary to nephrosclerosis. 2. Acute on chronic systolic and diastolic CHF with ejection fraction of 25- 30%. 3. Moderate aortic stenosis. 4. Volume overload. Improving with diuresis. 5. Advanced heart block. Patient now agreeable for pacemaker insertion. S cheduled for tomorrow. 6. Hypertension with chronic kidney disease. Controlled. 7. Acute kidney injury mostly prerenal secondary to diuresis. Plan: Discontinue IV Lasix. Start Lasix 40 mg orally twice daily. Stop metolazone. Low-salt diet and 1200 mL fluid restriction. Continue to monitor renal function and urine output. Repeat electrolytes in the morning.
--- NOTE | 2019-09-27 14:35 | P.PN ---
Subjective Progress Note Date: 09/27/19 Sean Lin is an 79-year-old male who presented to [facility] emergency room with a chief complaint of worsening shortness of breath, patient has a known history of congestive heart failure, echocardiogram done last month revealed left ventricular systolic function severely impaired with ejection fraction of 25-30% , patient also had evidence of diastolic dysfunction, he also has known history of high-grade AV block, he refused pacemaker placement in the past. He also has a known history of chronic renal failure, his baseline creatinine is 1.5-2. Patient was recently admitted to the hospital with similar symptoms, he was discharged home in good condition, he returns to [facility] with worsening shortness of breath, he also had evidence of elevated troponin in the emergency room he denies any chest pain, he had evidence of fluid overload, he was admitted to telemetry floor for further evaluation and treatment, cardiology consultation and nephrology consultations were requested. On 09/25/2019 patient was seen and examined on the telemetry floor he is alert and oriented 3 in no apparent distress, his shortness of breath and lower extremity edema has improved, he is followed by urology and is maintained on IV Lasix and metolazone was added to his regimen. Patient is now agreeable to having a pacemaker placed, there is no fever or chills no headache or dizziness no chest pain, he has shortness of breath and occasional cough there is no nausea or vomiting no abdominal pain no diarrhea and no urinary symptoms. On 09/26/2019 patient was seen and examined on the telemetry floor, he is alert and oriented 3 in no apparent distress, he is complaining of constipation, he reports improvement in his shortness of breath and lower extremity edema, otherwise he denies any complaints there is no fever or chills no headache or dizziness no chest pain no nausea or vomiting no abdominal pain no diarrhea no burning was urination no frequency or urgency and no hematuria, creatinine is up to 2.0. Patient states that Dr. Owusu came in and talked to him about pacemaker placement, he is now convinced that he needs it, he is willing to proceed. Patient states that Dr. Owusu told him that procedure will be scheduled for Monday. On 09/26/2019, patient was seen and examined on the telemetry floor, he is alert and oriented 3 in no distress, there is no fever or chills no headache or dizziness no chest pain, no cough no nausea or vomiting no abdominal pain no diarrhea and no urinary symptoms, shortness of breath and lower extremity edema has improved. Patient is scheduled for pacemaker placement tomorrow. Objective - Vital Signs Vital signs: Vital Signs Temp 98.1 F 09/27/19 08:00 Pulse 68 09/27/19 08:00 Resp 16 09/27/19 08:00 BP 122/60 09/27/19 08:00 Pulse Ox 97 09/27/19 08:00 Intake & Output 09/26/19 09/27/19 09/27/19 18:59 06:59 18:59 Intake Total 236 780 476 Output Total 900 1000 200 Balance -664 -220 276 Weight 86.8 kg Intake: Oral 236 780 476 Output: Urine 900 1000 200 Other: Voiding Method Urinal Urinal Incontinent Incontinent # Voids 0 1 - Exam In general patient is alert and oriented 3 in no apparent distress HEENT head normocephalic and atraumatic Neck is supple no JVD no goiter no lymphadenopathy Chest exam reveals a scattered crackles in both bases no wheezing Cardiac exam reveals regular heart sounds S1 and S2 no gallops no murmurs Abdomen is soft nontender no organomegaly with normal bowel sounds Extremity exam reveals 3+ edema no cyanosis or clubbing Neurological examination reveals no gross focal deficit - Labs CBC & Chem 7: 09/27/19 06:52 09/27/19 06:52 Labs: Abnormal Lab Results - Last 24 Hours (Table) 09/27/19 09/27/19 Range/Units 06:52 06:52 WBC 12.0 H (3.8-10.6) k/uL RBC 4.13 L (4.30-5.90) m/uL Hgb 11.1 L (13.0-17.5) gm/dL Hct 36.8 L (39.0-53.0) % MCHC 30.2 L (31.0-37.0) g/dL Neutrophils # 10.4 H (1.3-7.7) k/uL Lymphocytes # 0.6 L (1.0-4.8) k/uL Sodium 136 L (137-145) mmol/L BUN 81 H (9-20) mg/dL Creatinine 2.47 H (0.66-1.25) mg/dL Total Protein 6.1 L (6.3-8.2) g/dL Albumin 3.4 L (3.5-5.0) g/dL Assessment and Plan Plan: 1. 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 Chronic kidney disease stage III 3. Moderate aortic stenosis 4. History of high grade AV block, patient refused pacemaker placement repeatedly in the past. 5. Elevated troponin level, no chest pain, doubt myocardial infarction, cardiology consultation requested 6. Elevated white blood count at 12.7 on admission Will check urine analysis to rule out any infectious process, chest x-ray on admission did not reveal any evidence of infection, Covid 19 testing on presentation negative. 7. Constipation will give 1 dose of lactulose At this time nephrology consultation reviewed, patient was started on IV Lasix 40 mg twice daily, home medications resumed, Patient is now agreeable to have the pacemaker placed, I have spoken was Dr. Owusu personality and he will come and see patient and arrange for pacemaker placement. Patient states that Dr. Owusu came in today and talk to him he is willing now to proceed with pacemaker placement and this will be scheduled for Monday per patient. will follow closely.
[2019-09-27] MEDS: FUROSEMIDE 40 MG TAB PO SCH (18:14)
[2019-09-27] MEDS: SODIUM CHLORIDE 0.9% 1,000 ML IV SCH ×2 (18:14→21:22)
[2019-09-27] MEDS: LEVOTHYROXINE 88 MCG TAB PO SCH (20:47)
[2019-09-27] MEDS: MULTIVITAMINS, THERA 1 EACH TAB PO SCH (20:47)
[2019-09-27] MEDS: LOSARTAN 50 MG TAB PO SCH (20:47)
[2019-09-27] MEDS ORDERED: ZOLPIDEM 5 MG TAB PO SCH (21:00)
[2019-09-28] MEDS: hydrALAZINE HCL 25 MG TAB PO SCH ×3 (08:17→19:44)
[2019-09-28] MEDS: FUROSEMIDE 40 MG TAB PO SCH ×2 (08:17→16:32)
[2019-09-28] MEDS: NICOTINE 14MG/24HR PATCH TRANSDERM SCH (08:17)
[2019-09-28] MEDS: ASPIRIN 81 MG PO SCH ×2 (08:17→08:28)
[2019-09-28] MEDS: METOLAZONE 5 MG TAB PO SCH (08:17)
[2019-09-28] MEDS: HEPARIN SODIUM,PORCINE 5,000 UNIT/ML 1 ML VIAL SQ SCH ×2 (08:17→19:45)
[2019-09-28] MEDS: FERROUS SULFATE 325 MG TAB PO SCH (08:17)
[2019-09-28] MEDS: predniSONE 20 MG TAB PO SCH (08:17)
[2019-09-28] MEDS: ISOSORBIDE MONONITRATE ER 30 MG TAB.ER.24H PO SCH (08:17)
[2019-09-28] MEDS: ALBUTEROL HFA INHALER INHALATION SCH ×4 (08:38→20:44)
[2019-09-28 09:06] LABS: Basophils % (A) 0 %; Eosinophils # (A) 0.1 k/uL (0-0.7); Eosinophils % (A) 1 %; HCT 36.4 % (39.0-53.0); HGB 11.1 gm/dL (13.0-17.5); Lymphocytes # (A) 0.7 k/uL (1.0-4.8); Lymphocytes % (A) 7 %; MCH 27.3 pg (25.0-35.0); MCHC 30.4 g/dL (31.0-37.0); MCV 89.8 fL (80.0-100.0); Mean Platelet Volume 8.1; Monocytes # (A) 0.6 k/uL (0-1.0); Monocytes % (A) 6 %; Neutrophils # (A) 8.2 k/uL (1.3-7.7); Neutrophils % (A) 84 %; Platelet Count 235 k/uL (150-450); RBC 4.06 m/uL (4.30-5.90); RDW 15.1 % (11.5-15.5); WBC 9.7 k/uL (3.8-10.6)
[2019-09-28 09:16] LABS: Albumin 3.4 g/dL (3.5-5.0); Calcium 9.3 mg/dL (8.4-10.2); Potassium 4.4 mmol/L (3.5-5.1); Total Bilirubin 0.3 mg/dL (0.2-1.3)
[2019-09-28] MEDS ORDERED: IV FLUID CONTINUATION 1,000 ML IV ONE (10:03)
[2019-09-28] MEDS ORDERED: PROPOFOL 10 MG/ML 20 ML VIAL IV ONE (10:03)
[2019-09-28] MEDS ORDERED: fentaNYL (PF) 50 MCG/ML 2 ML AMP ONE (10:03)
[2019-09-28] MEDS ORDERED: MIDAZOLAM 2 MG/2 ML VIAL ONE (10:03)
[2019-09-28] MEDS ORDERED: IOPAMIDOL-250 50ML BTL IV ONE (10:28)
[2019-09-28] MEDS ORDERED: LIDOCAINE 1% INJ 10MG/ML (20 ML MDV) ONE ×2 (10:34)
[2019-09-28] MEDS: ceFAZolin 1,000 MG in SODIUM CHLORIDE 0.9% IRRIGATIO 250 ML IRRIGATION ONE ×2 (10:54→13:38)
[2019-09-28] MEDS: LIDOCAINE 1% INJ 10MG/ML (20 ML MDV) SQ ONE ×2 (10:59→11:10)
[2019-09-28] MEDS ORDERED: LACTATED RINGERS 1,000 ML IV SCH (12:54)
[2019-09-28] MEDS ORDERED: ACETAMINOPHEN TAB 325 MG TAB PO PRN (13:07)
--- NOTE | 2019-09-28 13:16 | P.PN ---
Subjective Progress Note Date: 09/28/19 Sean Lin is an 79-year-old male who presented to [facility] emergency room with a chief complaint of worsening shortness of breath, patient has a known history of congestive heart failure, echocardiogram done last month revealed left ventricular systolic function severely impaired with ejection fraction of 25-30% , patient also had evidence of diastolic dysfunction, he also has known history of high-grade AV block, he refused pacemaker placement in the past. He also has a known history of chronic renal failure, his baseline creatinine is 1.5-2. Patient was recently admitted to the hospital with similar symptoms, he was discharged home in good condition, he returns to [facility] with worsening shortness of breath, he also had evidence of elevated troponin in the emergency room he denies any chest pain, he had evidence of fluid overload, he was admitted to telemetry floor for further evaluation and treatment, cardiology consultation and nephrology consultations were requested. On 09/25/2019 patient was seen and examined on the telemetry floor he is alert and oriented 3 in no apparent distress, his shortness of breath and lower extremity edema has improved, he is followed by urology and is maintained on IV Lasix and metolazone was added to his regimen. Patient is now agreeable to having a pacemaker placed, there is no fever or chills no headache or dizziness no chest pain, he has shortness of breath and occasional cough there is no nausea or vomiting no abdominal pain no diarrhea and no urinary symptoms. On 09/26/2019 patient was seen and examined on the telemetry floor, he is alert and oriented 3 in no apparent distress, he is complaining of constipation, he reports improvement in his shortness of breath and lower extremity edema, otherwise he denies any complaints there is no fever or chills no headache or dizziness no chest pain no nausea or vomiting no abdominal pain no diarrhea no burning was urination no frequency or urgency and no hematuria, creatinine is up to 2.0. Patient states that Dr. Owusu came in and talked to him about pacemaker placement, he is now convinced that he needs it, he is willing to proceed. Patient states that Dr. Owusu told him that procedure will be scheduled for Monday. On 09/27/2019, patient was seen and examined on the telemetry floor, he is alert and oriented 3 in no distress, there is no fever or chills no headache or dizziness no chest pain, no cough no nausea or vomiting no abdominal pain no diarrhea and no urinary symptoms, shortness of breath and lower extremity edema has improved. Patient is scheduled for pacemaker placement tomorrow. On 09/28/2019 patient was seen and examined on the telemetry floor he is alert and oriented 3 he is scheduled for pacemaker placement today, BUN and creatinine are up to 95 and 2.4 to nephrology are following and adjusting diuretics, there is no fever or chills no headache or dizziness no chest pain no shortness of breath no cough no nausea or vomiting no abdominal pain no diarrhea and no urinary symptoms bilateral lower extremity edema has improved significantly Objective - Vital Signs Vital signs: Vital Signs Temp 97.5 F L 09/28/19 08:28 Pulse 67 09/28/19 08:28 Resp 18 09/28/19 08:28 BP 147/61 09/28/19 08:28 Pulse Ox 97 09/28/19 08:28 Intake & Output 09/27/19 09/28/19 09/28/19 18:59 06:59 18:59 Intake Total 712 222 600 Output Total 1000 1400 825 Balance -288 -8982 -410 Weight 85.4 kg Intake: IV 250 Intake, IV Titration 350 Amount ceFAZolin 2 gm In Sodium 350 Chloride 0.9% 50 ml @ 100 mls/hr IVPB ONCE ONE Rx# :[id number] Oral 712 222 Output: Urine 1000 1400 825 Other: Voiding Method Urinal Urinal Incontinent Incontinent # Voids 2 3 - Exam In general patient is alert and oriented 3 in no apparent distress HEENT head normocephalic and atraumatic Neck is supple no JVD no goiter no lymphadenopathy Chest exam reveals a scattered crackles in both bases no wheezing Cardiac exam reveals regular heart sounds S1 and S2 no gallops no murmurs Abdomen is soft nontender no organomegaly with normal bowel sounds Extremity exam reveals 3+ edema no cyanosis or clubbing Neurological examination reveals no gross focal deficit - Labs CBC & Chem 7: 09/28/19 08:37 09/28/19 08:37 Labs: Abnormal Lab Results - Last 24 Hours (Table) 09/28/19 09/28/19 Range/Units 08:37 08:37 RBC 4.06 L (4.30-5.90) m/uL Hgb 11.1 L (13.0-17.5) gm/dL Hct 36.4 L (39.0-53.0) % MCHC 30.4 L (31.0-37.0) g/dL Neutrophils # 8.2 H (1.3-7.7) k/uL Lymphocytes # 0.7 L (1.0-4.8) k/uL Sodium 136 L (137-145) mmol/L BUN 95 H (9-20) mg/dL Creatinine 2.42 H (0.66-1.25) mg/dL Total Protein 6.0 L (6.3-8.2) g/dL Albumin 3.4 L (3.5-5.0) g/dL Assessment and Plan Plan: 1. Acute on chronic systolic and diastolic congestive heart failure exacerbatio n, with fluid overload 2. Chronic kidney disease stage III 3. Moderate aortic stenosis 4. History of high grade AV block, patient refused pacemaker placement repeatedly in the past. 5. Elevated troponin level, no chest pain, doubt myocardial infarction, cardiology consultation requested 6. Elevated white blood count at 12.7 on admission Will check urine analysis to rule out any infectious process, chest x-ray on admission did not reveal any evidence of infection, Covid 19 testing on presentation negative. 7. Constipation will give 1 dose of lactulose At this time nephrology consultation reviewed, patient was started on IV Lasix 40 mg twice daily, diuretics are being adjusted by nephrology home medications resumed, Patient is scheduled for pacemaker placement today Will follow closely
--- NOTE | 2019-09-28 13:25 | P.CRDCN ---
History of Present Illness Consult date: 09/26/19 Consult reason: congestive heart failure, shortness of breath History of present illness: This is Dr. 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 I recommended a biventricular system. I have recommended this on multiple occasions in the past and the patient has previously refused every single time However he had a lot of questions regarding ICDs versus pacemakers and explained that the biventricular system is available in an ICD form as well as in the pacemaker The patient does not want an ICD because he does not want to deal with ICD shocks. He simply wants quality of life that'll improve his heart failure with biventricular pacing and address the bradycardia that is becoming quite symptomatic He is agreeable to permanent pacing only and he made this very clear He understands that there is a risk of ventricular tachycardia and ventricular fibrillation with a biventricular pacemaker will not address but he is okay with that He just hopes for a better quality of life Following biventricular pacing I would reduce the dose of diuretics and start carvedilol and maximize the dose HPI Patient presented once again with shortness of breath and exertional dyspnea and lower extremity edema despite diuretics Twelve-lead ECG showed second-degree AV block with a right bundle branch block left anterior fascicular block Recurrent admissions with worsening renal function and heart failure 2-D echo shows severe LV dysfunction ROS: No fever chills or rigors, no cough, phlegm or expectoration, no nausea, vomiting or diarrhea, no hematuria, dysuria, no musculoskeletal complaints, no strokes or seizures, no skin lesions. EXAMINATION: 133/61 mmHg, pulse rate in the 50s afebrile No JVD No lower extremity edema Decreased breath sounds bilaterally but no crackles no rhonchi Heart sounds are normal no murmurs Abdomen is soft REVIEW OF LABS, ECG & MEDICAL DATA Hemoglobin 11, platelet count 235,000 Sodium 136 potassium 4.4 BUN 66 creatinine 1.95 Coronavirus not detected BNP greater than 13,000 Borderline troponins Past Medical History Past Medical History: Atrial Fibrillation, Blood Disorder, Heart Failure, COPD, GERD/Reflux, GI Bleed, Hypertension, Thyroid Disorder Additional Past Medical History / Comment(s): ANEMIA, HIATAL HERNIA (PER EGD) arrhythmia, skin cancer - RUE, LUE, R roman catholic, Nose (sees Dr. Cortez) PAST RT LEG ULCERS, chf History of Any Multi-Drug Resistant Organisms: VRE Date of last positivie culture/infection: 02/24/15 MDRO Source:: Right leg wound Past Surgical History: Adenoidectomy, Tonsillectomy Additional Past Surgical History / Comment(s): hemorrhoidectomy, tennis elbow, EGD. Past Anesthesia/Blood Transfusion Reactions: No Reported Reaction Past Psychological History: No Psychological Hx Reported Smoking Status: Former smoker Past Alcohol Use History: None Reported Additional Past Alcohol Use History / Comment(s): STARTED SMOKIN G AT AGE 17, TRYING TO QUIT NOW 1 CIGARETTE A DAY RECENTLY Past Drug Use History: None Reported - Past Family History Mother Family Medical History: No Reported History Daughter(s) History Unknown: Yes Family Medical History: Cancer Additional Family Medical History / Comment(s): uterine/lung/brain CA - current terminal Father History Unknown: Yes Family Medical History: Cancer Additional Family Medical History / Comment(s): prostate CA - from Medications and Allergies Home Medications Medication Instructions Recorded Confirmed Type Multivitamin [Men's Multi-Vitamin] 1 tab PO HS 12/13/14 09/23/19 History Levothyroxine Sodium [Synthroid] 88 mcg PO HS 08/30/19 09/23/19 History Telmisartan 80 mg PO HS 08/30/19 09/23/19 History Isosorbide Mononitrate ER [Imdur] 30 mg PO DAILY tab.er.24h 09/02/19 09/23/19 Rx Cefuroxime Axetil [Ceftin] 500 mg PO BID 09/09/19 09/23/19 History Ferrous Sulfate [Iron (65 MG 325 mg PO DAILY 09/09/19 09/23/19 History Elemental)] Albuterol Inhaler [Ventolin Hfa 2 puff INHALATION RT-QID puff 09/16/19 09/23/19 Rx Inhaler] Furosemide [Lasix] 40 mg PO BID@0900,1600 tab 09/16/19 09/23/19 Rx Nitroglycerin Sl Tabs [Nitrostat] 0.4 mg SUBLINGUAL Q5M PRN tab 09/16/19 09/23/19 Rx hydrALAZINE HCL [Apresoline] 75 mg PO TID tab 09/16/19 09/23/19 Rx Carvedilol [Coreg] 6.25 mg PO BID #180 tablet 09/28/19 Rx Pravastatin Sodium [Pravachol] 20 mg PO DAILY #90 tab 09/28/19 Rx Allergies Allergy/AdvReac Type Severity Reaction Status Date / Time Sulfa (Sulfonamide Allergy Rash/Hives Verified 09/23/19 19:40 Antibiotics) Physical Exam Vitals: Vital Signs Temp Pulse Resp BP Pulse Ox 09/28/19 08:28 97.5 F L 67 18 147/61 97 09/28/19 04:00 98 F 68 20 151/60 97 09/28/19 00:00 97.5 F L 88 20 146/66 95 09/27/19 20:00 98.2 F 75 18 148/65 96 09/27/19 16:00 97.9 F 64 18 133/60 96 09/27/19 15:59 56 L 18 Intake and Output 09/27/19 09/28/19 09/28/19 22:59 06:59 14:59 Intake Total 458 600 Output Total 800 1200 825 Balance -342 -1200 -225 Intake: IV 250 Intake, IV Titration 350 Amount ceFAZolin 2 gm In Sodium 350 Chloride 0.9% 50 ml @ 100 mls/hr IVPB ONCE ONE Rx# :[id number] Oral 458 Output: Urine 800 1200 825 Other: Voiding Method Urinal Urinal Incontinent Incontinent # Voids 1 2 3 Weight 85.4 kg Results 09/28/19 08:37 09/28/19 08:37 Cardiac Enzymes 09/28/19 Range/Units 08:37 AST 37 (17-59) U/L CBC 09/28/19 Range/Units 08:37 WBC 9.7 (3.8-10.6) k/uL RBC 4.06 L (4.30-5.90) m/uL Hgb 11.1 L (13.0-17.5) gm/dL Hct 36.4 L (39.0-53.0) % Plt Count 235 (150-450) k/uL Comprehensive Metabolic Panel 09/28/19 Range/Units 08:37 Sodium 136 L (137-145) mmol/L Potassium 4.4 (3.5-5.1) mmol/L Chloride 98 (98-107) mmol/L Carbon Dioxide 30 (22-30) mmol/L BUN 95 H (9-20) mg/dL Creatinine 2.42 H (0.66-1.25) mg/dL Glucose 88 (74-99) mg/dL Calcium 9.3 (8.4-10.2) mg/dL AST 37 (17-59) U/L ALT 39 (4-49) U/L Alkaline Phosphatase 69 (38-126) U/L Total Protein 6.0 L (6.3-8.2) g/dL Albumin 3.4 L (3.5-5.0) g/dL Current Medications Generic Name Dose Route Start Last Admin Trade Name Freq PRN Reason Stop Dose Admin Acetaminophen 650 mg 09/28/19 13:07 Tylenol Tab PO Q6HR PRN Mild Pain Hydrocodone Bitart/Acetaminophen 1 each 09/28/19 13:07 Arena 5-325 PO Q4HR PRN Pain Albuterol Sulfate 2 puff 09/23/19 20:00 09/28/19 11:49 Ventolin Hfa Inhaler INHALATION Not Given RT-QID [facility] Aspirin 81 mg 09/24/19 09:00 09/28/19 08:28 Aspirin PO Not Given DAILY [facility] Carvedilol 12.5 mg 09/28/19 17:30 Coreg PO BID-W/MEALS [facility] Ferrous Sulfate 325 mg 09/24/19 09:00 09/28/19 08:17 Feosol PO 325 mg DAILY [facility] Administration Furosemide 40 mg 09/27/19 16:00 09/28/19 08:17 Lasix PO 40 mg BID@0900,1600 [facility] Administration Heparin Sodium (Porcine) 5,000 unit 09/23/19 21:00 09/28/19 08:17 Heparin SQ 5,000 unit Q12HR [facility] Administration Hydralazine HCl 25 mg 09/28/19 16:00 Apresoline PO TID [facility] Cefazolin Sodium 2 gm/ Sodium 50 mls @ 100 mls/hr 09/28/19 16:00 Chloride IVPB 09/29/19 04:29 Q6H [facility] Acetaminophen 1,000 mg/ IV 100 mls @ 400 mls/hr 09/28/19 14:00 Solution IVPB 09/28/19 14:14 ONCE ONE Isosorbide Mononitrate 30 mg 09/24/19 09:00 09/28/19 08:17 Imdur PO 30 mg DAILY [facility] Administration Levothyroxine Sodium 88 mcg 09/23/19 21:00 09/27/19 20:47 Synthroid PO 88 mcg HS [facility] Administration Losartan Potassium 150 mg 09/23/19 21:00 09/27/19 20:47 Cozaar PO 150 mg HS [facility] Administration Multivitamins 1 each 09/23/19 21:00 09/27/19 20:47 Theragran PO 1 each HS [facility] Administration Nicotine 1 patch 09/23/19 21:00 09/28/19 08:17 Habitrol 14mg/24hr Patch TRANSDERM 1 patch DAILY [facility] Administration Nitroglycerin 0.4 mg 09/23/19 19:35 Nitrostat SUBLINGUAL Q5M PRN Chest Pain Prednisone 10 mg 09/29/19 09:00 PO DAILY [facility] Sodium Chloride 10 ml 09/28/19 21:00 Saline Flush IV Q12HR [facility] Zolpidem Tartrate 5 mg 09/26/19 20:32 09/26/19 23:01 Ambien PO 5 mg HS PRN Administration Sleep Intake and Output 09/27/19 09/28/19 09/28/19 22:59 06:59 14:59 Intake Total 458 600 Output Total 800 1200 825 Balance -342 -1200 -225 Intake: IV 250 Intake, IV Titration 350 Amount ceFAZolin 2 gm In Sodium 350 Chloride 0.9% 50 ml @ 100 mls/hr IVPB ONCE ONE Rx# :[id number] Oral 458 Output: Urine 800 1200 825 Other: Voiding Method Urinal Urinal Incontinent Incontinent # Voids 1 2 3 Weight 85.4 kg 09/28/19 08:37 09/28/19 08:37
--- NOTE | 2019-09-28 13:27 | P.PN ---
Progress Note - Text Successful biventricular pacemaker implantation with His bundle pacing This should improve his forward output Recommend Carvedilol 12.5 g twice daily Reduce hydralazine to 25 mg 3 times a day Maximize carvedilol even further if blood pressure is elevated Hold metolazone now I expect that the renal perfusion will improve and renal function will improve and continued use of high dose diuretics would result in further worsening of the prerenal azotemia Continue angiotensin receptor blockers May continue Imdur with low-dose hydralazine Taper off steroids quickly please Increase risk of device infection From a cardiac standpoint the patient may go home tomorrow after completion of antibiotics, pacemaker interrogation and chest x-ray Follow Dr. Owusu as an outpatient
--- NOTE | 2019-09-28 13:32 | P.PCN ---
Preoperative Diagnosis: Left upper extremity venogram 15 mL of IV dye injected in the left arm Patent left axillary, left subclavian and innominate veins Plan line proceed with biventricular pacing
--- NOTE | 2019-09-28 13:43 | PCN ---
PROCEDURE NOTE Mr. Lin is an 79-year-old male patient who has severe bradycardia on account of sick sinus syndrome and AV node disease with baseline prolongation of the NV interval second-degree heart block, Mobitz 2 as well as third-degree heart block intermittently. He has renal hypoperfusion on account of this. He has severe cardiomyopathy. We have had multiple detailed discussions about permanent pacing and finally he consented to a permanent pacemaker, but he did not want a defibrillator on account of the quality of life issues. He simply wanted a permanent pacemaker for severe symptomatic bradycardia, a biventricular pacemaker was recommended to avoid RV pacing because of significant AV node disease. DESCRIPTION OF PROCEDURE: The patient is brought to the EP lab in a fasting state. Written informed consent was obtained prior to the procedure. The left shoulder area was prepped and draped as per protocol. 1% lidocaine was used for local anesthesia. A 4 cm incision was made parallel to the deltopectoral groove, about 1.5 cm medial to it. The incision was carried down to the level of the pectoralis muscle. A subfascial pocket was made. Hemostasis was assured. The left axillary vein was accessed at 3 different points and via appropriately-sized introducer sheaths 3 leads were positioned. The atrial lead was a 52 cm, model #5076 serial number [id number]. The P waves were 3.3 mV. Pacing impedance 667 ohms, pacing threshold 0.4 V at 0.5 milliseconds. 10 V test negative. The RV lead was 65 cm, model #5076, serial number [id number]. This was screwed in the RV apex. R-waves 23 mV, pacing impedance 860 ohms, pacing threshold 0.3 V at 0.5 milliseconds. 10 V test negative. The lead connected to the LV port of the biventricular pacemaker was model ##3830, 69 cm in length and serial number [id number]. This was screwed in the His bundle. A large current of injury in the His bundle was noted as well as a bit of current of injury in the ventricular SB beyond the ventricular signal was noted. The nonselective capture was noted to 3.5 V and then selective capture but with right bundle branch block morphology with selective capture (left bundle, narrow QRS with nonselective capture and right bundle branch block pattern with selective capture). The absolute thresholds are 1.3 V at 1 millisecond. Pacing impedance 513 ohms. All sheaths were removed. The lead was secured to the underlying pectoralis muscle and then connected to the generator (Tammi CRTP model number W1TR02 serial number [id number]. The leads and the generator were then placed in subfascial pocket. The wound was closed in 3 layers and dressed per protocol. RESULTS: Successful biventricular pacemaker implantation for severe sick sinus syndrome as well as severe AV node disease with first-degree, second-degree as well as third-degree heart block with hypoperfusion. The patient tolerated the procedure well without any acute complications. The device was programmed to DDDR 50-130 ppm with an AV delay of 450 milliseconds with LV RV offset of 80 milliseconds. The patient tolerated the procedure well without any acute complications. Successful biventricular pacemaker implantation for significant conduction system disease with severe bradycardia and AV node disease. PLAN: In view of his cardiomyopathy, maximal medical treatment will be recommended. PARESH / YOKO: [id number] /
--- NOTE | 2019-09-28 13:46 | LTR ---
DATE OF SERVICE: 09/28/2019 Dear Alexandra: I had the pleasure of seeing Mr. Sean Lin in electrophysiology follow up. Mr. Lin underwent a biventricular pacemaker implantation for significant sick sinus syndrome with severe AV node disease, which is symptomatic. He refused an ICD on account of quality of life issues. I would recommend maximizing his cardiomyopathy medications. I am hopeful that this will improve his LV function with improved perfusion to the target organs. Thank you for entrusting me in the care of your patient. Warm regards, Sincerely, PARESH / YOKO: [id number] /
[2019-09-28] MEDS ORDERED: ACETAMINOPHEN IV (For NPO) 1,000 MG in EMPTY BAG 1 BAG IVPB ONE (14:00)
[2019-09-28] MEDS: CARVEDILOL 12.5 MG TAB PO SCH (16:32)
[2019-09-28] MEDS ORDERED: CARVEDILOL 6.25 MG TAB PO SCH (17:30)
[2019-09-28] MEDS: LEVOTHYROXINE 88 MCG TAB PO SCH (19:43)
[2019-09-28] MEDS: LOSARTAN 50 MG TAB PO SCH (19:43)
[2019-09-28] MEDS: MULTIVITAMINS, THERA 1 EACH TAB PO SCH (19:43)
[2019-09-28] MEDS: ZOLPIDEM 5 MG TAB PO PRN (22:37)
[2019-09-29] MEDS: HYDROcodone/APAP 5-325MG 1 EACH TAB PO PRN ×2 (04:48→22:11)
[2019-09-29] MEDS: CARVEDILOL 12.5 MG TAB PO SCH ×2 (04:58→17:26)
--- NOTE | 2019-09-29 07:37 | XR ---
EXAMINATION TYPE: XR chest 2V DATE OF EXAM: 09/29/2019 HISTORY: Lead placement check. REFERENCE: Previous study dated 09/23/2019. FINDINGS: There has been interval placement of a multilead pacing device. Approximately overlies the right atrium and distal leads overlie the right ventricle. I do not see evidence of pneumothorax. Bulmaro g volumes are prominent. The lungs are clear. Pleural space are clear. The heart is mildly enlarged. IMPRESSION: I DO NOT SEE A POST PACEMAKER INSERTION COMPLICATION.
[2019-09-29 08:01] LABS: Calcium 8.5 mg/dL (8.4-10.2); Magnesium 2.3 mg/dL (1.6-2.3); Potassium 4.3 mmol/L (3.5-5.1)
[2019-09-29] MEDS: ASPIRIN 81 MG PO SCH (08:24)
[2019-09-29] MEDS: ALBUTEROL HFA INHALER INHALATION SCH ×4 (08:36→20:41)
[2019-09-29] MEDS: FERROUS SULFATE 325 MG TAB PO SCH (08:58)
[2019-09-29] MEDS: FUROSEMIDE 40 MG TAB PO SCH (08:58)
[2019-09-29] MEDS: NICOTINE 14MG/24HR PATCH TRANSDERM SCH (08:58)
[2019-09-29] MEDS: hydrALAZINE HCL 25 MG TAB PO SCH ×3 (08:58→19:30)
[2019-09-29] MEDS: ISOSORBIDE MONONITRATE ER 30 MG TAB.ER.24H PO SCH (08:58)
[2019-09-29] MEDS: HEPARIN SODIUM,PORCINE 5,000 UNIT/ML 1 ML VIAL SQ SCH ×2 (08:58→19:31)
[2019-09-29] MEDS: predniSONE 10 MG TAB PO SCH (08:59)
[2019-09-29] MEDS ORDERED: predniSONE 20 MG TAB PO SCH (09:00)
--- NOTE | 2019-09-29 11:41 | P.PN ---
Subjective Progress Note Date: 09/29/19 History of present illness: This is an 79-year-old gentleman with history of paroxysmal atrial fibrillation, hypertension, COPD, PAD, heart failure and valvular heart disease who presented to the hospital with symptoms of progressively worsening shortness of breath. He had a recent admission to the hospital at which time he was found to have worsening renal function and advanced heart block. He was recommended on several different occasions to undergo implantation of a permanent pacemaker, but refused, and he continues to refuse at this time. He again had presented to the hospital with symptoms of weakness, was found to be again in high degree AV block and was symptomatic. 09/28: Patient underwent successful biventricular pacemaker implantation done yesterday with Dr. Owusu. Chest x-rays shows no postprocedural complications. Surgical site is dry with no signs of infection, erythema or edema. Patient states that he feels about the same as he did prior to the pacemaker implantation. He denies any chest pain or shortness of breath. Pacemaker is scheduled for interrogation today. Physical examination: Gen: This is an 79-year-old female. Patient is resting bed appears to be comfortable and in no acute distress VS: Afebrile, heart rate 60, blood pressure 111/53, pulse ox 96% on room air HEENT: Head is atraumatic, normocephalic. Pupils equal, round. Sclerae is anicteric. NECK: Supple. No JVD. No lymphadenopathy. No thyromegaly. LUNGS: Clear to auscultation. No wheezes or rhonchi. No intercostal retractions. HEART: Regular rate and rhythm. Systolic murmur. ABDOMEN: Soft. Bowel sounds are present. No masses. No tenderness. EXTREMITIES: No pedal edema. No calf tenderness. NEUROLOGICAL: Patient is awake, alert and oriented x3. Cranial nerves 2 through 12 are grossly intact. Assessment: #1 Advanced heart block s/p BiV pacemaker #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, EF 25-30% #3 Worsening renal function, progressive dyspnea, and lower extremity edema that is explained by his bradycardia #4 Abnormal troponin most likely secondary to above, not suggestive of acute coronary syndrome #5 history of paroxysmal atrial fibrillation #6 Acute on chronic congestive heart failure secondary to systolic dysfunction #7 Hypertension #8 COPD #9 PAD #10 Valvular heart disease Plan: Patient is cleared from cardiology once pacemaker has been interrogated Continue carvedilol 12.5 mg twice daily, hydralazine 25 mg 3 times daily Hold metolazone Patient is cleared for discharge from cardiology perspective. Follow-up with Dr. Owusu as an outpatient in one week. Nurse practitioner note has been reviewed, I agree with documented findings and plan of care. Patient was seen and examined. Objective - Vital Signs Vital signs: Vital Signs Temp 98.1 F 09/29/19 09:03 Pulse 60 09/29/19 09:03 Resp 18 09/29/19 09:03 BP 111/53 09/29/19 09:03 Pulse Ox 96 09/29/19 09:03 Intake & Output 09/28/19 09/29/19 09/29/19 18:59 06:59 18:59 Intake Total 2460 300 Output Total 1275 1250 400 Balance 1185 -1250 -100 Weight 90.5 kg Intake: IV 250 Intake, IV Titration 1250 Amount ACETAMINOPHEN IV (For NPO 400 ) 1,000 mg In Empty Bag 1 bag @ 400 mls/hr IVPB ONCE ONE Rx#:[id number] Sodium Chloride 0.9% 1, 350 000 ml @ 50 mls/hr IV . Q20H [facility] Rx#:[id number] ceFAZolin 2 gm In Sodium 50 Chloride 0.9% 50 ml @ 100 mls/hr IVPB ONCE ONE Rx# :[id number] ceFAZolin 2 gm In Sodium 400 Chloride 0.9% 50 ml @ 100 mls/hr IVPB ONCE ONE Rx# :[id number] ceFAZolin 2 gm In Sodium 50 Chloride 0.9% 50 ml @ 100 mls/hr IVPB Q6H [facility] Rx#: [id number] Oral 960 300 Output: Urine 1275 1250 400 Other: Voiding Method Urinal Urinal Incontinent Incontinent # Voids 2 1 - Labs CBC & Chem 7: 09/28/19 08:37 09/29/19 06:57 Labs: Abnormal Lab Results - Last 24 Hours (Table) 09/28/19 09/29/19 Range/Units 08:37 06:57 Sodium 136 L 131 L (137-145) mmol/L BUN 95 H 95 H (9-20) mg/dL Creatinine 2.42 H 2.58 H (0.66-1.25) mg/dL Total Protein 6.0 L (6.3-8.2) g/dL Albumin 3.4 L (3.5-5.0) g/dL
--- NOTE | 2019-09-29 12:40 | P.PN ---
Subjective Progress Note Date: 09/29/19 Sean Lin is an 79-year-old male who presented to [facility] emergency room with a chief complaint of worsening shortness of breath, patient has a known history of congestive heart failure, echocardiogram done last month revealed left ventricular systolic function severely impaired with ejection fraction of 25-30% , patient also had evidence of diastolic dysfunction, he also has known history of high-grade AV block, he refused pacemaker placement in the past. He also has a known history of chronic renal failure, his baseline creatinine is 1.5-2. Patient was recently admitted to the hospital with similar symptoms, he was discharged home in good condition, he returns to [facility] with worsening shortness of breath, he also had evidence of elevated troponin in the emergency room he denies any chest pain, he had evidence of fluid overload, he was admitted to telemetry floor for further evaluation and treatment, cardiology consultation and nephrology consultations were requested. On 09/25/2019 patient was seen and examined on the telemetry floor he is alert and oriented 3 in no apparent distress, his shortness of breath and lower extremity edema has improved, he is followed by urology and is maintained on IV Lasix and metolazone was added to his regimen. Patient is now agreeable to having a pacemaker placed, there is no fever or chills no headache or dizziness no chest pain, he has shortness of breath and occasional cough there is no nausea or vomiting no abdominal pain no diarrhea and no urinary symptoms. On 09/26/2019 patient was seen and examined on the telemetry floor, he is alert and oriented 3 in no apparent distress, he is complaining of constipation, he reports improvement in his shortness of breath and lower extremity edema, otherwise he denies any complaints there is no fever or chills no headache or dizziness no chest pain no nausea or vomiting no abdominal pain no diarrhea no burning was urination no frequency or urgency and no hematuria, creatinine is up to 2.0. Patient states that Dr. Owusu came in and talked to him about pacemaker placement, he is now convinced that he needs it, he is willing to proceed. Patient states that Dr. Owusu told him that procedure will be scheduled for Monday. On 09/27/2019, patient was seen and examined on the telemetry floor, he is alert and oriented 3 in no distress, there is no fever or chills no headache or dizziness no chest pain, no cough no nausea or vomiting no abdominal pain no diarrhea and no urinary symptoms, shortness of breath and lower extremity edema has improved. Patient is scheduled for pacemaker placement tomorrow. On 09/28/2019 patient was seen and examined on the telemetry floor he is alert and oriented 3 he is scheduled for pacemaker placement today, BUN and creatinine are up to 95 and 2.4 to nephrology are following and adjusting diuretics, there is no fever or chills no headache or dizziness no chest pain no shortness of breath no cough no nausea or vomiting no abdominal pain no diarrhea and no urinary symptoms bilateral lower extremity edema has improved significantly On 09/29/2019 patient was seen and examined on the telemetry floor he is alert and oriented in no apparent distress, he had a pacemaker placed yesterday, he is doing well today, there is no fever or chills no headache or dizziness no chest pain no shortness of breath no cough no nausea or vomiting no abdominal pain no diarrhea and no urinary symptoms, lower extremity edema is improving. Kidney function are still worsening, at this time discontinue metolazone, recheck labs in a.m., increase mobility with physical therapy , possible discharge to home tomorrow. Objective - Vital Signs Vital signs: Vital Signs Temp 97.7 F 09/29/19 12:07 Pulse 60 09/29/19 12:07 Resp 18 09/29/19 12:07 BP 126/60 09/29/19 12:07 Pulse Ox 96 09/29/19 12:07 Intake & Output 09/28/19 09/29/19 09/29/19 18:59 06:59 18:59 Intake Total 2460 300 Output Total 1275 1250 400 Balance 1185 -1250 -100 Weight 90.5 kg Intake: IV 250 Intake, IV Titration 1250 Amount ACETAMINOPHEN IV (For NPO 400 ) 1,000 mg In Empty Bag 1 bag @ 400 mls/hr IVPB ONCE ONE Rx#:[id number] Sodium Chloride 0.9% 1, 350 000 ml @ 50 mls/hr IV . Q20H [facility] Rx#:[id number] ceFAZolin 2 gm In Sodium 50 Chloride 0.9% 50 ml @ 100 mls/hr IVPB ONCE ONE Rx# :[id number] ceFAZolin 2 gm In Sodium 400 Chloride 0.9% 50 ml @ 100 mls/hr IVPB ONCE ONE Rx# :[id number] ceFAZolin 2 gm In Sodium 50 Chloride 0.9% 50 ml @ 100 mls/hr IVPB Q6H [facility] Rx#: [id number] Oral 960 300 Output: Urine 1275 1250 400 Other: Voiding Method Urinal Urinal Incontinent Incontinent # Voids 2 1 - Exam In general patient is alert and oriented 3 in no apparent distress HEENT head normocephalic and atraumatic Neck is supple no JVD no goiter no lymphadenopathy Chest exam reveals a scattered crackles in both bases no wheezing Cardiac exam reveals regular heart sounds S1 and S2 no gallops no murmurs Abdomen is soft nontender no organomegaly with normal bowel sounds Extremity exam reveals 3+ edema no cyanosis or clubbing Neurological examination reveals no gross focal deficit - Labs CBC & Chem 7: 09/28/19 08:37 09/29/19 06:57 Labs: Abnormal Lab Results - Last 24 Hours (Table) 09/29/19 Range/Units 06:57 Sodium 131 L (137-145) mmol/L BUN 95 H (9-20) mg/dL Creatinine 2.58 H (0.66-1.25) mg/dL Assessment and Plan Plan: 1. 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 Chronic kidney disease stage III patient seen by nephrology he was placed on IV Lasix and metolazone, kidney function has been worsening at this time will discontinue metronidazole recheck kidney function tomorrow 3. Moderate aortic stenosis 4. History of high grade AV block, patient refused pacemaker placement repeatedly in the past. Patient was agreeable this time and had a pacemaker placed yesterday. 5. Elevated troponin level, no chest pain, doubt myocardial infarction, cardiology consultation requested 6. Elevated white blood count at 12.7 on admission Will check urine analysis to rule out any infectious process, chest x-ray on admission did not reveal any evidence of infection, Covid 19 testing on presentation negative. White blood count normalized 7. Constipation will give 1 dose of lactulose At this time nephrology consultation reviewed, patient was started on IV Lasix 40 mg twice daily, diuretics are being adjusted by nephrology home medications resumed, Patient is scheduled for pacemaker placement today Will follow closely
--- NOTE | 2019-09-29 15:47 | PN ---
PROGRESS NOTE Patient is seen for followup for acute kidney injury on top of chronic kidney disease. He is status post pacemaker placement yesterday, currently doing well. Renal function has been stable with creatinine at about 2.4 mg/dL. The patient is currently maintained on oral Lasix twice a day. His creatinine is slightly up to 2.58 from 2.4. No complaints of chest pains or shortness of breath. PHYSICAL EXAMINATION: On examination today, blood pressure was 111/53, heart rate 60 per minute, he is afebrile. Examination shows no evidence of edema lower extremities. Abdomen is soft, nontender. Breath sounds are decreased at the bases. Pacemaker is in place. ME[employer] LUGGER exam grossly intact. LAB: Show sodium 131, potassium 4.3, BUN 95 serum creatinine 2.58. ASSESSMENT: 1. Chronic kidney disease, stage 3. Baseline creatinine 1.5-2. Serum creatinine slightly higher. I will decrease oral Lasix. 2. Acute on chronic congestive heart failure, systolic and diastolic. 3. Cardiomyopathy, ejection fraction 25-30%. 4. Moderate aortic stenosis. 5. Advanced heart block status post pacemaker placement. 6. Acute kidney injury, mostly associated with recent diuresis. Decrease Lasix to 40 mg daily. PLAN: Decrease Lasix to 40 mg daily. Repeat labs in a.m. Continue to avoid nephrotoxic agents. MMODL / IJN: [id number] /
[2019-09-29] MEDS: MULTIVITAMINS, THERA 1 EACH TAB PO SCH (19:30)
[2019-09-29] MEDS: LOSARTAN 50 MG TAB PO SCH (19:30)
[2019-09-29] MEDS: LEVOTHYROXINE 88 MCG TAB PO SCH (19:31)
[2019-09-29] MEDS: PRAVASTATIN SODIUM 20 MG TAB PO SCH (19:31)
[2019-09-29] MEDS: ZOLPIDEM 5 MG TAB PO PRN (22:11)
[2019-09-30] MEDS: HYDROcodone/APAP 5-325MG 1 EACH TAB PO PRN ×2 (03:42→12:24)
[2019-09-30] MEDS: CARVEDILOL 12.5 MG TAB PO SCH ×2 (06:40→17:35)
[2019-09-30 07:01] LABS: Basophils % (A) 0 %; Eosinophils # (A) 0.1 k/uL (0-0.7); Eosinophils % (A) 1 %; HCT 33.6 % (39.0-53.0); HGB 10.8 gm/dL (13.0-17.5); Lymphocytes # (A) 0.7 k/uL (1.0-4.8); Lymphocytes % (A) 9 %; MCH 28.5 pg (25.0-35.0); MCV 88.9 fL (80.0-100.0); Mean Platelet Volume 8.4; Monocytes # (A) 0.7 k/uL (0-1.0); Monocytes % (A) 9 %; Neutrophils # (A) 6.4 k/uL (1.3-7.7); Neutrophils % (A) 80 %; Platelet Count 202 k/uL (150-450); RBC 3.78 m/uL (4.30-5.90); RDW 14.9 % (11.5-15.5); WBC 8.1 k/uL (3.8-10.6)
[2019-09-30 07:04] LABS: Albumin 2.9 g/dL (3.5-5.0); Calcium 8.3 mg/dL (8.4-10.2); Potassium 4.7 mmol/L (3.5-5.1); Total Bilirubin 0.2 mg/dL (0.2-1.3); Total Protein 5.5 g/dL (6.3-8.2)
[2019-09-30] MEDS: ALBUTEROL HFA INHALER INHALATION SCH ×4 (07:52→19:15)
[2019-09-30] MEDS: predniSONE 10 MG TAB PO SCH (08:52)
[2019-09-30] MEDS: FERROUS SULFATE 325 MG TAB PO SCH (08:53)
[2019-09-30] MEDS: ISOSORBIDE MONONITRATE ER 30 MG TAB.ER.24H PO SCH (08:53)
[2019-09-30] MEDS: HEPARIN SODIUM,PORCINE 5,000 UNIT/ML 1 ML VIAL SQ SCH ×2 (08:53→20:29)
[2019-09-30] MEDS: ASPIRIN 81 MG PO SCH (08:53)
[2019-09-30] MEDS: hydrALAZINE HCL 25 MG TAB PO SCH ×3 (08:53→20:30)
[2019-09-30] MEDS: NICOTINE 14MG/24HR PATCH TRANSDERM SCH (08:53)
[2019-09-30] MEDS ORDERED: FUROSEMIDE 40 MG TAB PO SCH (09:00)
--- NOTE | 2019-09-30 13:07 | P.PN ---
Subjective Progress Note Date: 09/30/19 This is an 79-year-old gentleman with history of paroxysmal atrial fibrillation, hypertension, COPD, PAD, heart failure and valvular heart disease who presented to the hospital with symptoms of progressively worsening shortness of breath. He had a recent admission to the hospital at which time he was found to have worsening renal function and advanced heart block. He was recommended on several different occasions to undergo implantation of a permanent pacemaker, but refused, and he continues to refuse at this time. He again had presented to the hospital with symptoms of weakness, was found to be again in high degree AV block and was symptomatic. His blood pressure this morning 144/60 with a heart rate in the 60s to 70s, 93% on room air. White blood cell count 10.4, hemoglobin 11.0, platelet count 225. Sodium 138, potassium 4.2, BUN 70, creatinine 2.0. 09/27/2019 Patient was seen and examined this morning. Feels well, I had a lengthy discussion with him yesterday afternoon, regarding the device implantation, patient had several concerns and questions, after the discussion the patient has agreed to undergo implantation of a bi-V device. This will be scheduled tomorrow with Dr. Owusu around [address] Owusu also came in to speak with the patient last evening. Blood pressure 122/60, heart rate 68, 97% on room air. White blood cell count 12.0, hemoglobin 11, platelet count 233. Sodium 136, potassium 4.7, BUN 81 and creatinine 2.4. We will hold the patient's Lasix to daily. 09/30/2019 Patient was seen and examined this morning, overall doing quite well, sitting at the side of his bed, denies any dizziness or lightheadedness, no palpitations. He underwent implantation of a bi-V pacemaker by Dr. Owusu. Device was interrogated and is functioning appropriately. Blood pressure 128/50 with a heart rate in the 60s, 97% on room air. Objective - Vital Signs Vital signs: Vital Signs Temp 97.6 F 09/30/19 08:15 Pulse 60 09/30/19 12:00 Resp 18 09/30/19 12:00 BP 128/50 09/30/19 12:00 Pulse Ox 97 09/30/19 12:00 Intake & Output 09/29/19 09/30/1920 18:59 06:59 18:59 Intake Total 1620 240 Output Total 1050 975 200 Balance 570 -975 40 Weight 85.9 kg Intake: Oral 1620 240 Output: Urine 1050 975 200 Other: Voiding Method Urinal Urinal Incontinent Incontinent # Voids 2 3 - Exam Patient is afebrile, pulse in the 60s, respirations 18, blood pressure 144/60, oxygen saturation 94% on room air 79-year-old gentleman in no acute distress at the time of my examination Patient appears comfortable, lying flat, in no acute distress heart sounds are soft, S1 and S2, systolic murmur heard Lungs with crackles at the bilateral bases posteriorly, site of device implantation, dressing is dry and intact. bilateral lower extremity edema - Labs CBC & Chem 7: 09/30/19 06:19 09/30/19 06:19 Labs: Abnormal Lab Results - Last 24 Hours (Table) 09/30/19 09/30/19 Range/Units 06:19 06:19 RBC 3.78 L (4.30-5.90) m/uL Hgb 10.8 L (13.0-17.5) gm/dL Hct 33.6 L (39.0-53.0) % Lymphocytes # 0.7 L (1.0-4.8) k/uL Sodium 133 L (137-145) mmol/L BUN 106 H* (9-20) mg/dL Creatinine 2.53 H (0.66-1.25) mg/dL Glucose 110 H (74-99) mg/dL Calcium 8.3 L (8.4-10.2) mg/dL Total Protein 5.5 L (6.3-8.2) g/dL Albumin 2.9 L (3.5-5.0) g/dL Assessment and Plan Plan: IMPRESSION and plan: #1 Advanced heart block, status post implantation of a bi-V pacemaker #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, EF 25-30% #3 Worsening renal function, progressive dyspnea, and lower extremity edema that is explained by his bradycardia #4 Abnormal troponin most likely secondary to above, not suggestive of acute coronary syndrome #5 history of paroxysmal atrial fibrillation #6 Acute on chronic congestive heart failure secondary to systolic dysfunction #7 Hypertension #8 COPD #9 PAD #10 Valvular heart disease Plan From cardiology's perspective, the patient may be able to be discharged home today. We'll make him a follow-up appointment in the office post discharge. He has been given instruction regarding activity post procedure. DNP note has been reviewed, I agree with a documented findings and plan of care. Patient was seen and examined.
[2019-09-30 13:29] VITALS: BMI 27.9
--- NOTE | 2019-09-30 17:21 | P.PN ---
Subjective Progress Note Date: 09/30/19 Sean Lin is an 79-year-old male who presented to [facility] emergency room with a chief complaint of worsening shortness of breath, patient has a known history of congestive heart failure, echocardiogram done last month revealed left ventricular systolic function severely impaired with ejection fraction of 25-30% , patient also had evidence of diastolic dysfunction, he also has known history of high-grade AV block, he refused pacemaker placement in the past. He also has a known history of chronic renal failure, his baseline creatinine is 1.5-2. Patient was recently admitted to the hospital with similar symptoms, he was discharged home in good condition, he returns to [facility] with worsening shortness of breath, he also had evidence of elevated troponin in the emergency room he denies any chest pain, he had evidence of fluid overload, he was admitted to telemetry floor for further evaluation and treatment, cardiology consultation and nephrology consultations were requested. On 09/25/2019 patient was seen and examined on the telemetry floor he is alert and oriented 3 in no apparent distress, his shortness of breath and lower extremity edema has improved, he is followed by urology and is maintained on IV Lasix and metolazone was added to his regimen. Patient is now agreeable to having a pacemaker placed, there is no fever or chills no headache or dizziness no chest pain, he has shortness of breath and occasional cough there is no nausea or vomiting no abdominal pain no diarrhea and no urinary symptoms. On 09/26/2019 patient was seen and examined on the telemetry floor, he is alert and oriented 3 in no apparent distress, he is complaining of constipation, he reports improvement in his shortness of breath and lower extremity edema, otherwise he denies any complaints there is no fever or chills no headache or dizziness no chest pain no nausea or vomiting no abdominal pain no diarrhea no burning was urination no frequency or urgency and no hematuria, creatinine is up to 2.0. Patient states that Dr. Owusu came in and talked to him about pacemaker placement, he is now convinced that he needs it, he is willing to proceed. Patient states that Dr. Owusu told him that procedure will be scheduled for Monday. On 09/27/2019, patient was seen and examined on the telemetry floor, he is alert and oriented 3 in no distress, there is no fever or chills no headache or dizziness no chest pain, no cough no nausea or vomiting no abdominal pain no diarrhea and no urinary symptoms, shortness of breath and lower extremity edema has improved. Patient is scheduled for pacemaker placement tomorrow. On 09/28/2019 patient was seen and examined on the telemetry floor he is alert and oriented 3 he is scheduled for pacemaker placement today, BUN and creatinine are up to 95 and 2.4 to nephrology are following and adjusting diuretics, there is no fever or chills no headache or dizziness no chest pain no shortness of breath no cough no nausea or vomiting no abdominal pain no diarrhea and no urinary symptoms bilateral lower extremity edema has improved significantly On 09/29/2019 patient was seen and examined on the telemetry floor he is alert and oriented in no apparent distress, he had a pacemaker placed yesterday, he is doing well today, there is no fever or chills no headache or dizziness no chest pain no shortness of breath no cough no nausea or vomiting no abdominal pain no diarrhea and no urinary symptoms, lower extremity edema is improving. Kidney function are still worsening, at this time discontinue metolazone, recheck labs in a.m., increase mobility with physical therapy , possible discharge to home tomorrow. On 09/30/2019 patient was seen and examined on the telemetry floor he is alert and oriented 3 there is no fever or chills no headache or dizziness no chest pain no shortness of breath no cough no nausea or vomiting no abdominal pain no diarrhea no burning was urination no frequency or urgency and no hematuria. Kidney numbers are still going up BUN today 106 Objective - Vital Signs Vital signs: Vital Signs Temp 98.2 F 09/30/19 15:40 Pulse 60 09/30/19 15:40 Resp 18 09/30/19 15:40 BP 135/56 09/30/19 15:40 Pulse Ox 97 09/30/19 15:40 Intake & Output 09/29/19 09/30/19 09/30/19 18:59 06:59 18:59 Intake Total 1620 480 Output Total 1050 975 200 Balance 570 -975 280 Weight 85.9 kg 85.9 kg Intake: Oral 1620 480 Output: Urine 1050 975 200 Other: Voiding Method Urinal Urinal Incontinent Incontinent # Voids 2 3 - Exam In general patient is alert and oriented 3 in no apparent distress HEENT head normocephalic and atraumatic Neck is supple no JVD no goiter no lymphadenopathy Chest exam reveals a scattered crackles in both bases no wheezing Cardiac exam reveals regular heart sounds S1 and S2 no gallops no murmurs Abdomen is soft nontender no organomegaly with normal bowel sounds Extremity exam reveals 3+ edema no cyanosis or clubbing Neurological examination reveals no gross focal deficit - Labs CBC & Chem 7: 09/30/19 06:19 09/30/19 06:19 Labs: Abnormal Lab Results - Last 24 Hours (Table) 09/30/19 09/30/19 Range/Units 06:19 06:19 RBC 3.78 L (4.30-5.90) m/uL Hgb 10.8 L (13.0-17.5) gm/dL Hct 33.6 L (39.0-53.0) % Lymphocytes # 0.7 L (1.0-4.8) k/uL Sodium 133 L (137-145) mmol/L BUN 106 H* (9-20) mg/dL Creatinine 2.53 H (0.66-1.25) mg/dL Glucose 110 H (74-99) mg/dL Calcium 8.3 L (8.4-10.2) mg/dL Total Protein 5.5 L (6.3-8.2) g/dL Albumin 2.9 L (3.5-5.0) g/dL Assessment and Plan Plan: 1. 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 Chronic kidney disease stage III patient seen by nephrology he was placed on IV Lasix and metolazone, kidney function has been worsening at this time will discontinue metronidazole recheck kidney function tomorrow 3. Moderate aortic stenosis 4. History of high grade AV block, patient refused pacemaker placement repeated ly in the past. Patient was agreeable this time and had a pacemaker placed yesterday. 5. Elevated troponin level, no chest pain, doubt myocardial infarction, cardiology consultation requested 6. Elevated white blood count at 12.7 on admission Will check urine analysis to rule out any infectious process, chest x-ray on admission did not reveal any evidence of infection, Covid 19 testing on presentation negative. White blood count normalized 7. Constipation will give 1 dose of lactulose At this time nephrology consultation reviewed, patient was started on IV Lasix 40 mg twice daily, diuretics are being adjusted by nephrology home medications resumed, Patient is scheduled for pacemaker placement today Will follow closely
[2019-09-30] MEDS: LOSARTAN 25 MG TAB PO SCH (20:30)
[2019-09-30] MEDS: MULTIVITAMINS, THERA 1 EACH TAB PO SCH (20:30)
[2019-09-30] MEDS: PRAVASTATIN SODIUM 20 MG TAB PO SCH (20:30)
[2019-09-30] MEDS: LEVOTHYROXINE 88 MCG TAB PO SCH (20:30)
--- NOTE | 2019-09-30 20:39 | PN ---
PROGRESS NOTE Patient is seen for followup for acute kidney injury. Lasix was decreased. Patient is currently comfortable. He denies any significant complaints. His serum creatinine is staying at about 2.5 now. BUN was higher at 106 today. On examination today, blood pressure was 135/56, heart rate 60 per minute. He is afebrile. EXAMINATION OF THE HEART: S1 and S2. EXAMINATION OF LUNGS: Decreased breath sounds at bases. ABDOMEN: Soft, non-tender. Examination of lower extremities shows no significant edema. Labs show sodium 133, potassium 4.7, chloride 98. CO2 is 28. BUN 106, serum creatinine 2.53. Hemoglobin 10.8 g/dL. ASSESSMENT: 1. Acute kidney injury, acute tubular necrosis, possibly related to recent diuresis. Lasix has been decreased. I will also decrease the dose of the Cozaar. It is currently at 150 mg and serum creatinine continues to increase. Blood pressure was low at 95/45 earlier this morning. 2. Chronic kidney disease, stage III, with creatinine baseline 1.5 to 2, secondary to nephrosclerosis. 3. Congestive heart failure, systolic and diastolic, acute on top of chronic. 4. Cardiomyopathy, ejection fraction 25% to 30%. 5. Advanced heart block, status post pacemaker. PLAN: Decrease Cozaar, given the hypotension with systolic blood pressure in the 90s. Repeat labs in a.m. Continue to encourage increased oral intake. MMODL / IJN: [id number] /
[2019-10-01] MEDS: HYDROcodone/APAP 5-325MG 1 EACH TAB PO PRN (00:30)
[2019-10-01] MEDS: CARVEDILOL 12.5 MG TAB PO SCH ×2 (06:29→17:46)
[2019-10-01] MEDS: ALBUTEROL HFA INHALER INHALATION SCH ×4 (07:20→19:43)
[2019-10-01] MEDS: ASPIRIN 81 MG PO SCH (09:26)
[2019-10-01] MEDS: predniSONE 10 MG TAB PO SCH (09:26)
[2019-10-01] MEDS: FERROUS SULFATE 325 MG TAB PO SCH (09:26)
[2019-10-01] MEDS: ISOSORBIDE MONONITRATE ER 30 MG TAB.ER.24H PO SCH (09:26)
[2019-10-01] MEDS: hydrALAZINE HCL 25 MG TAB PO SCH ×3 (09:26→20:06)
[2019-10-01] MEDS: NICOTINE 14MG/24HR PATCH TRANSDERM SCH (09:26)
[2019-10-01] MEDS: HEPARIN SODIUM,PORCINE 5,000 UNIT/ML 1 ML VIAL SQ SCH ×2 (09:26→20:06)
--- NOTE | 2019-10-01 11:56 | P.PN ---
Subjective Progress Note Date: 10/01/19 This is an 79-year-old gentleman with history of paroxysmal atrial fibrillation, hypertension, COPD, PAD, heart failure and valvular heart disease who presented to the hospital with symptoms of progressively worsening shortness of breath. He had a recent admission to the hospital at which time he was found to have worsening renal function and advanced heart block. He was recommended on several different occasions to undergo implantation of a permanent pacemaker, but refused, and he continues to refuse at this time. He again had presented to the hospital with symptoms of weakness, was found to be again in high degree AV block and was symptomatic. His blood pressure this morning 144/60 with a heart rate in the 60s to 70s, 93% on room air. White blood cell count 10.4, hemoglobin 11.0, platelet count 225. Sodium 138, potassium 4.2, BUN 70, creatinine 2.0. 09/27/2019 Patient was seen and examined this morning. Feels well, I had a lengthy discussion with him yesterday afternoon, regarding the device implantation, patient had several concerns and questions, after the discussion the patient has agreed to undergo implantation of a bi-V device. This will be scheduled tomorrow with Dr. Owusu around [address] Owusu also came in to speak with the patient last evening. Blood pressure 122/60, heart rate 68, 97% on room air. White blood cell count 12.0, hemoglobin 11, platelet count 233. Sodium 136, potassium 4.7, BUN 81 and creatinine 2.4. We will hold the patient's Lasix to daily. 09/30/2019 Patient was seen and examined this morning, overall doing quite well, sitting at the side of his bed, denies any dizziness or lightheadedness, no palpitations. He underwent implantation of a bi-V pacemaker by Dr. Owusu. Device was interrogated and is functioning appropriately. Blood pressure 128/50 with a heart rate in the 60s, 97% on room air. 10/01/2019 Patient seen and examined this morning, overall doing well. Blood pressure 140/60 with a heart rate of 60, 97% on room air. White blood cell count 8.1, hemoglobin 10.8, platelet count 202. Sodium 133, potassium 4.7, BUN 106, creatinine 2.5. Objective - Vital Signs Vital signs: Vital Signs Temp 97.8 F 05/19/20 08:00 Pulse 60 10/01/19 08:00 Resp 16 10/01/19 08:00 BP 140/57 10/01/19 08:00 Pulse Ox 97 10/01/19 08:00 Intake & Output 09/30/19 10/01/19 10/01/19 18:59 06:59 18:59 Intake Total 716 Output Total 200 800 525 Balance 516 -800 -525 Weight 85.9 kg 85.5 kg Intake: Oral 716 Output: Urine 200 800 525 Other: Voiding Method Urinal Urinal Urinal Incontinent # Voids 1 1 - Exam Patient is afebrile, pulse in the 60s, respirations 18, blood pressure 144/60, oxygen saturation 94% on room air 79-year-old gentleman in no acute distress at the time of my examination Patient appears comfortable, lying flat, in no acute distress heart sounds are soft, S1 and S2, systolic murmur heard Lungs with crackles at the bilateral bases posteriorly, site of device implantation, dressing is dry and intact. bilateral lower extremity edema - Labs CBC & Chem 7: 09/30/19 06:19 09/30/19 06:19 Assessment and Plan Plan: IMPRESSION and plan: #1 Advanced heart block, status post implantation of a bi-V pacemaker #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, EF 25-30% #3 Worsening renal function, progressive dyspnea, and lower extremity edema that is explained by his bradycardia #4 Abnormal troponin most likely secondary to above, not suggestive of acute coronary syndrome #5 history of paroxysmal atrial fibrillation #6 Acute on chronic congestive heart failure secondary to systolic dysfunction #7 Hypertension #8 COPD #9 PAD #10 Valvular heart disease Plan From cardiology's perspective, the patient may be able to be discharged home today. We'll make him a follow-up appointment in the office post discharge. DNP note has been reviewed, I agree with a documented findings and plan of care. Patient was seen and examined.
[2019-10-01 11:57] LABS: Albumin 3.1 g/dL (3.5-5.0); Calcium 8.6 mg/dL (8.4-10.2); Potassium 4.5 mmol/L (3.5-5.1); Total Bilirubin 0.3 mg/dL (0.2-1.3); Total Protein 5.5 g/dL (6.3-8.2)
--- NOTE | 2019-10-01 12:44 | P.PN ---
Subjective Progress Note Date: 10/01/19 Sean Lin is an 79-year-old male who presented to [facility] emergency room with a chief complaint of worsening shortness of breath, patient has a known history of congestive heart failure, echocardiogram done last month revealed left ventricular systolic function severely impaired with ejection fraction of 25-30% , patient also had evidence of diastolic dysfunction, he also has known history of high-grade AV block, he refused pacemaker placement in the past. He also has a known history of chronic renal failure, his baseline creatinine is 1.5-2. Patient was recently admitted to the hospital with similar symptoms, he was discharged home in good condition, he returns to [facility] with worsening shortness of breath, he also had evidence of elevated troponin in the emergency room he denies any chest pain, he had evidence of fluid overload, he was admitted to telemetry floor for further evaluation and treatment, cardiology consultation and nephrology consultations were requested. On 09/25/2019 patient was seen and examined on the telemetry floor he is alert and oriented 3 in no apparent distress, his shortness of breath and lower extremity edema has improved, he is followed by urology and is maintained on IV Lasix and metolazone was added to his regimen. Patient is now agreeable to having a pacemaker placed, there is no fever or chills no headache or dizziness no chest pain, he has shortness of breath and occasional cough there is no nausea or vomiting no abdominal pain no diarrhea and no urinary symptoms. On 09/26/2019 patient was seen and examined on the telemetry floor, he is alert and oriented 3 in no apparent distress, he is complaining of constipation, he reports improvement in his shortness of breath and lower extremity edema, otherwise he denies any complaints there is no fever or chills no headache or dizziness no chest pain no nausea or vomiting no abdominal pain no diarrhea no burning was urination no frequency or urgency and no hematuria, creatinine is up to 2.0. Patient states that Dr. Owusu came in and talked to him about pacemaker placement, he is now convinced that he needs it, he is willing to proceed. Patient states that Dr. Owusu told him that procedure will be scheduled for Monday. On 09/27/2019, patient was seen and examined on the telemetry floor, he is alert and oriented 3 in no distress, there is no fever or chills no headache or dizziness no chest pain, no cough no nausea or vomiting no abdominal pain no diarrhea and no urinary symptoms, shortness of breath and lower extremity edema has improved. Patient is scheduled for pacemaker placement tomorrow. On 09/28/2019 patient was seen and examined on the telemetry floor he is alert and oriented 3 he is scheduled for pacemaker placement today, BUN and creatinine are up to 95 and 2.4 to nephrology are following and adjusting diuretics, there is no fever or chills no headache or dizziness no chest pain no shortness of breath no cough no nausea or vomiting no abdominal pain no diarrhea and no urinary symptoms bilateral lower extremity edema has improved significantly On 09/29/2019 patient was seen and examined on the telemetry floor he is alert and oriented in no apparent distress, he had a pacemaker placed yesterday, he is doing well today, there is no fever or chills no headache or dizziness no chest pain no shortness of breath no cough no nausea or vomiting no abdominal pain no diarrhea and no urinary symptoms, lower extremity edema is improving. Kidney function are still worsening, at this time discontinue metolazone, recheck labs in a.m., increase mobility with physical therapy , possible discharge to home tomorrow. On 09/30/2019 patient was seen and examined on the telemetry floor he is alert and oriented 3 there is no fever or chills no headache or dizziness no chest pain no shortness of breath no cough no nausea or vomiting no abdominal pain no diarrhea no burning was urination no frequency or urgency and no hematuria. Kidney numbers are still going up BUN today 106 On 10/01/2019 patient was seen and examined on the telemetry floor, he is alert and oriented 3 in no apparent distress, there is no fever or chills no headache or dizziness no chest pain no shortness of breath no cough no nausea or vomiting no abdominal pain no diarrhea no burning was urination no frequency or urgency and no hematuria, at this time, medications are being adjusted kidney function slightly better today, diuretics are on hold, will recheck labs in a.m. Objective - Vital Signs Vital signs: Vital Signs Temp 97.8 F 10/01/19 08:00 Pulse 60 10/01/19 08:00 Resp 16 10/01/19 08:00 BP 140/57 10/01/19 08:00 Pulse Ox 97 10/01/19 08:00 Intake & Output 09/30/19 10/01/19 10/01/19 18:59 06:59 18:59 Intake Total 716 Output Total 200 800 525 Balance 516 -800 -525 Weight 85.9 kg 85.5 kg Intake: Oral 716 Output: Urine 200 800 525 Other: Voiding Method Urinal Urinal Urinal Incontinent # Voids 1 1 - Exam In general patient is alert and oriented 3 in no apparent distress HEENT head normocephalic and atraumatic Neck is supple no JVD no goiter no lymphadenopathy Chest exam reveals a scattered crackles in both bases no wheezing Cardiac exam reveals regular heart sounds S1 and S2 no gallops no murmurs Abdomen is soft nontender no organomegaly with normal bowel sounds Extremity exam reveals 3+ edema no cyanosis or clubbing Neurological examination reveals no gross focal deficit - Labs CBC & Chem 7: 09/30/19 06:19 10/01/19 11:10 Labs: Abnormal Lab Results - Last 24 Hours (Table) 10/01/19 Range/Units 11:10 Sodium 134 L (137-145) mmol/L BUN 101 H* (9-20) mg/dL Creatinine 2.28 H (0.66-1.25) mg/dL Glucose 108 H (74-99) mg/dL Total Protein 5.5 L (6.3-8.2) g/dL Albumin 3.1 L (3.5-5.0) g/dL Assessment and Plan Plan: 1. Acute on chronic systolic and diastolic congestive heart failure exac erbation, with fluid overload 2. Chronic kidney disease stage III patient seen by nephrology he was placed on IV Lasix and metolazone, kidney function has been worsening at this time will discontinue metronidazole recheck kidney function tomorrow 3. Moderate aortic stenosis 4. History of high grade AV block, patient refused pacemaker placement repeatedly in the past. Patient was agreeable this time and had a pacemaker placed yesterday. 5. Elevated troponin level, no chest pain, doubt myocardial infarction, cardiology consultation requested 6. Elevated white blood count at 12.7 on admission Will check urine analysis to rule out any infectious process, chest x-ray on admission did not reveal any evidence of infection, Covid 19 testing on presentation negative. White blood count normalized 7. Constipation will give 1 dose of lactulose At this time nephrology consultation reviewed, patient was started on IV Lasix 40 mg twice daily, diuretics are being adjusted by nephrology home medications resumed, Patient is scheduled for pacemaker placement today Will follow closely
--- NOTE | 2019-10-01 15:48 | PN ---
PROGRESS NOTE Patient is seen for followup for acute kidney injury. Patient is currently comfortable, he is not in any acute distress. He has had permanent pacemaker placed on 09/28/2019. Oral Lasix is currently on hold. Dose of Cozaar was decreased yesterday as blood pressure was on the lower side and serum creatinine had been edging up. PHYSICAL EXAMINATION: Today blood pressure was 127/43, heart rate 60 per minute. Patient is afebrile. Examination of the heart S1, S2. Examination of the lungs, bilateral breath sounds are heard. Abdomen is soft, nontender. Examination of the lower extremities shows no significant edema. Chronic skin changes noted. [employer] exam grossly intact. LABS: Show sodium 134, potassium 4.5, chloride 99, BUN 101, serum creatinine 2.28. ASSESSMENT: 1. Acute kidney injury, nonoliguric with some improvement in renal function with decreased dose of angiotensin receptor blockers. Lasix is currently on hold as well. 2. Chronic kidney disease stage III, baseline creatinine 1.5-2 secondary to nephrosclerosis. 3. Congestive heart failure, diastolic, acute on top of chronic, as well as systolic. 4. Cardiomyopathy, ejection fraction 25% to 30%. 5. Advanced heart block status post pacemaker. PLAN: Continue with the current decreased dose of Cozaar. Check postvoid residual and maintain off Lasix for now. MMODL / IJN: [id number] /
[2019-10-01] MEDS: LOSARTAN 25 MG TAB PO SCH (20:06)
[2019-10-01] MEDS: MULTIVITAMINS, THERA 1 EACH TAB PO SCH (20:06)
[2019-10-01] MEDS: LEVOTHYROXINE 88 MCG TAB PO SCH (20:06)
[2019-10-01] MEDS: PRAVASTATIN SODIUM 20 MG TAB PO SCH (20:06)
[2019-10-02] MEDS: HYDROcodone/APAP 5-325MG 1 EACH TAB PO PRN (01:53)
[2019-10-02] MEDS: CARVEDILOL 12.5 MG TAB PO SCH ×2 (06:27→17:14)
[2019-10-02] MEDS: ALBUTEROL HFA INHALER INHALATION SCH ×4 (07:57→20:18)
[2019-10-02] MEDS: ASPIRIN 81 MG PO SCH (08:18)
[2019-10-02] MEDS: ISOSORBIDE MONONITRATE ER 30 MG TAB.ER.24H PO SCH (08:18)
[2019-10-02] MEDS: HEPARIN SODIUM,PORCINE 5,000 UNIT/ML 1 ML VIAL SQ SCH (08:18)
[2019-10-02] MEDS: hydrALAZINE HCL 25 MG TAB PO SCH ×2 (08:18→17:14)
[2019-10-02] MEDS: predniSONE 10 MG TAB PO SCH (08:19)
[2019-10-02] MEDS: FERROUS SULFATE 325 MG TAB PO SCH (08:19)
[2019-10-02 08:25] VITALS: RESP 16; TEMP 97.6
--- NOTE | 2019-10-02 11:26 | P.PN ---
Subjective Progress Note Date: 10/02/19 This is an 79-year-old gentleman with history of paroxysmal atrial fibrillation, hypertension, COPD, PAD, heart failure and valvular heart disease who presented to the hospital with symptoms of progressively worsening shortness of breath. He had a recent admission to the hospital at which time he was found to have worsening renal function and advanced heart block. He was recommended on several different occasions to undergo implantation of a permanent pacemaker, but refused, and he continues to refuse at this time. He again had presented to the hospital with symptoms of weakness, was found to be again in high degree AV block and was symptomatic. His blood pressure this morning 144/60 with a heart rate in the 60s to 70s, 93% on room air. White blood cell count 10.4, hemoglobin 11.0, platelet count 225. Sodium 138, potassium 4.2, BUN 70, creatinine 2.0. 09/27/2019 Patient was seen and examined this morning. Feels well, I had a lengthy discussion with him yesterday afternoon, regarding the device implantation, patient had several concerns and questions, after the discussion the patient has agreed to undergo implantation of a bi-V device. This will be scheduled tomorrow with Dr. Owusu around [address] Owusu also came in to speak with the patient last evening. Blood pressure 122/60, heart rate 68, 97% on room air. White blood cell count 12.0, hemoglobin 11, platelet count 233. Sodium 136, potassium 4.7, BUN 81 and creatinine 2.4. We will hold the patient's Lasix to daily. 09/30/2019 Patient was seen and examined this morning, overall doing quite well, sitting at the side of his bed, denies any dizziness or lightheadedness, no palpitations. He underwent implantation of a bi-V pacemaker by Dr. Owusu. Device was interrogated and is functioning appropriately. Blood pressure 128/50 with a heart rate in the 60s, 97% on room air. 10/01/2019 Patient seen and examined this morning, overall doing well. Blood pressure 140/60 with a heart rate of 60, 97% on room air. White blood cell count 8.1, hemoglobin 10.8, platelet count 202. Sodium 133, potassium 4.7, BUN 106, creatinine 2.5. 10/02/2019 Patient seen and examined this morning, kidney function improving. Hemodynamically stable. Objective - Vital Signs Vital signs: Vital Signs Temp 97.6 F 10/02/19 08:00 Pulse 60 10/02/19 08:00 Resp 16 10/02/19 08:00 BP 127/60 10/02/19 08:00 Pulse Ox 96 10/02/19 08:00 Intake & Output 10/01/19 10/02/19 10/02/19 18:59 06:59 18:59 Intake Total 712 240 Output Total 525 925 Balance 187 -925 240 Weight 86 kg Intake: Oral 712 240 Output: Urine 525 925 Other: Voiding Method Urinal Urinal Urinal # Voids 1 - Exam Patient is afebrile, pulse in the 60s, respirations 18, blood pressure 144/60, oxygen saturation 94% on room air 79-year-old gentleman in no acute distress at the time of my examination Patient appears comfortable, lying flat, in no acute distress heart sounds are soft, S1 and S2, systolic murmur heard Lungs with crackles at the bilateral bases posteriorly, site of device implantation, dressing is dry and intact. bilateral lower extremity edema - Labs CBC & Chem 7: 09/30/19 06:19 10/01/19 11:10 Labs: Abnormal Lab Results - Last 24 Hours (Table) 10/01/19 Range/Units 11:10 Sodium 134 L (137-145) mmol/L BUN 101 H* (9-20) mg/dL Creatinine 2.28 H (0.66-1.25) mg/dL Glucose 108 H (74-99) mg/dL Total Protein 5.5 L (6.3-8.2) g/dL Albumin 3.1 L (3.5-5.0) g/dL Assessment and Plan Plan: IMPRESSION and plan: #1 Advanced heart block, status post implantation of a bi-V pacemaker #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, EF 25-30% #3 Worsening renal function, progressive dyspnea, and lower extremity edema that is explained by his bradycardia #4 Abnormal troponin most likely secondary to above, not suggestive of acute coronary syndrome #5 history of paroxysmal atrial fibrillation #6 Acute on chronic congestive heart failure secondary to systolic dysfunction #7 Hypertension #8 COPD #9 PAD #10 Valvular heart disease Plan From cardiology's perspective, the patient may be able to be discharged home today. We'll make him a follow-up appointment in the office post discharge. DNP note has been reviewed, I agree with a documented findings and plan of care. Patient was seen and examined.
[2019-10-02 11:47] LABS: Calcium 8.7 mg/dL (8.4-10.2); Potassium 4.6 mmol/L (3.5-5.1)
[2019-10-02] MEDS: NICOTINE 14MG/24HR PATCH TRANSDERM SCH (12:38)
--- NOTE | 2019-10-02 16:10 | PN ---
PROGRESS NOTE Patient is seen for followup for acute kidney injury. Renal function is somewhat improved, but serum creatinine staying 2.2-2.3 mg/dL now. Dose of the angiotensin receptor blockers was decreased 2 days ago. BUN has decreased. Serum creatinine staying stable. Patient has good urine output. He denies any significant complaints except for weakness. PHYSICAL EXAMINATION: On examination today, blood pressure was 127/60, heart rate 60 per minute, he is afebrile. Examination of the heart S1, S2. Examination of the lungs, decreased breath sounds at bases. Abdomen is soft, nontender. Examination of lower extremities shows no significant edema. LABS: Show sodium 137, potassium 4.6, chloride 105, BUN 95, creatinine 2.32. ASSESSMENT: 1. Acute kidney injury, nonoliguric, mainly ATN, currently stable. Angiotensin receptor all dose has been decreased. Lasix is remains on hold. 2. Chronic kidney disease stage III, baseline creatinine 1.5-2 mg/dL. 3. Congestive heart failure, systolic and diastolic, acute on top of chronic currently improved. 4. Cardiomyopathy, ejection fraction 25% to 30%. 5. Advanced heart block, status post pacemaker placement. PLAN: Continue with current dose of Cozaar. Avoid any other nephrotoxic agents. Hold off on the diuretics for now. The patient will need followup as outpatient. MMODL / IJN: [id number] /
[2019-10-02 17:16] VITALS: BP 170/67; PULSE 60
--- NOTE | 2019-10-02 18:05 | P.DS ---
Providers Date of admission: 09/23/19 19:32 Expected date of discharge: 10/02/19 Attending physician: Alexandra Mitchell Consults: 09/23/19 19:32 Consult Physician Routine Consulting Provider: Stef Rojas Consult Reason/Comments: Chronic renal failure Do you want consulting provider notified?: Yes Consult Physician Routine Consulting Provider: Bong Rush Consult Reason/Comments: CHF Do you want consulting provider notified?: Yes [facility]: Diagnosis on discharge: 1. 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 Chronic kidney disease stage III patient seen by nephrology he was placed on IV Lasix and metolazone, kidney function has been worsening at this time will discontinue metronidazole recheck kidney function tomorrow 3. Moderate aortic stenosis 4. History of high grade AV block, patient refused pacemaker placement repeatedly in the past. Patient was agreeable this time and had a pacemaker placed yesterday. 5. Elevated troponin level, no chest pain, doubt myocardial infarction, cardiology consultation requested 6. Elevated white blood count at 12.7 on admission Will check urine analysis to rule out any infectious process, chest x-ray on admission did not reveal any evidence of infection, Covid 19 testing on presentation negative. White blood count normalized 7. Constipation will give 1 dose of lactulose Hospital course: Sean Lin is an 79-year-old male who presented to [facility] emergency room with a chief complaint of worsening shortness of breath, patient has a known history of congestive heart failure, echocardiogram done last month revealed left ventricular systolic function severely impaired with ejection fraction of 25-30% , patient also had evidence of diastolic dysfunction, he also has known history of high-grade AV block, he refused pacemaker placement in the past. He also has a known history of chronic renal failure, his baseline creatinine is 1.5-2. Patient was recently admitted to the hospital with similar symptoms, he was discharged home in good condition, he returns to [facility] with worsening shortness of breath, he also had evidence of elevated troponin in the emergency room he denies any chest pain, he had evidence of fluid overload, he was admitted to telemetry floor for further evaluation and treatment, cardiology consultation and nephrology consultations were requested. On 09/25/2019 patient was seen and examined on the telemetry floor he is alert and oriented 3 in no apparent distress, his shortness of breath and lower extremity edema has improved, he is followed by urology and is maintained on IV Lasix and metolazone was added to his regimen. Patient is now agreeable to having a pacemaker placed, there is no fever or chills no headache or dizziness no chest pain, he has shortness of breath and occasional cough there is no nausea or vomiting no abdominal pain no diarrhea and no urinary symptoms. On 09/26/2019 patient was seen and examined on the telemetry floor, he is alert and oriented 3 in no apparent distress, he is complaining of constipation, he reports improvement in his shortness of breath and lower extremity edema, otherwise he denies any complaints there is no fever or chills no headache or dizziness no chest pain no nausea or vomiting no abdominal pain no diarrhea no burning was urination no frequency or urgency and no hematuria, creatinine is up to 2.0. Patient states that Dr. Owusu came in and talked to him about pacemaker placement, he is now convinced that he needs it, he is willing to proceed. Patient states that Dr. Owusu told him that procedure will be scheduled for Monday. On 09/27/2019, patient was seen and examined on the telemetry floor, he is alert and oriented 3 in no distress, there is no fever or chills no headache or dizziness no chest pain, no cough no nausea or vomiting no abdominal pain no diarrhea and no urinary symptoms, shortness of breath and lower extremity edema has improved. Patient is scheduled for pacemaker placement tomorrow. On 09/28/2019 patient was seen and examined on the telemetry floor he is alert and oriented 3 he is scheduled for pacemaker placement today, BUN and creatinine are up to 95 and 2.4 to nephrology are following and adjusting diuretics, there is no fever or chills no headache or dizziness no chest pain no shortness of breath no cough no nausea or vomiting no abdominal pain no diarrhea and no urinary symptoms bilateral lower extremity edema has improved significantly On 09/29/2019 patient was seen and examined on the telemetry floor he is alert and oriented in no apparent distress, he had a pacemaker placed yesterday, he is doing well today, there is no fever or chills no headache or dizziness no chest pain no shortness of breath no cough no nausea or vomiting no abdominal pain no diarrhea and no urinary symptoms, lower extremity edema is improving. Kidney function are still worsening, at this time discontinue metolazone, recheck labs in a.m., increase mobility with physical therapy , possible discharge to home tomorrow. On 09/30/2019 patient was seen and examined on the telemetry floor he is alert and oriented 3 there is no fever or chills no headache or dizziness no chest pain no shortness of breath no cough no nausea or vomiting no abdominal pain no diarrhea no burning was urination no frequency or urgency and no hematuria. Kidney numbers are still going up BUN today 106 On 10/01/2019 patient was seen and examined on the telemetry floor, he is alert and oriented 3 in no apparent distress, there is no fever or chills no headache or dizziness no chest pain no shortness of breath no cough no nausea or vomiting no abdominal pain no diarrhea no burning was urination no frequency or urgency and no hematuria, at this time, medications are being adjusted kidney function slightly better today, diuretics are on hold, will recheck labs in a.m. On 10/02/2019 patient was seen and examined on the telemetry floor, he is alert and oriented 3 in no apparent distress, he denies any complaints at this time, there is no fever or chills no headache or dizziness no chest pain no shortness of breath no cough no nausea or vomiting no abdominal pain no diarrhea no burning with urination no frequency or urgency and no hematuria. Patient will be discharged home today, medication changes explained to him, will arrange for visiting nurse to make sure he is taking the right medications, will follow in the office in the next 1-2 days Patient Condition at Discharge: Fair Plan - Discharge Summary Discharge Rx Participant: Yes New Discharge Prescriptions: New Pravastatin Sodium [Pravachol] 20 mg PO DAILY #90 tab Carvedilol [Coreg*] 12.5 mg PO BID #180 tablet hydrALAZINE HCL [Apresoline] 25 mg PO TID tab Aspirin 81 mg PO DAILY chew Carvedilol [Coreg*] 12.5 mg PO BID-W/MEALS tab Losartan [Cozaar] 25 mg PO HS tab Nicotine 14Mg/24Hr Patch [Habitrol] 1 patch TRANSDERM DAILY patch Furosemide [Lasix] 40 mg PO DAILY tab HYDROcodone/APAP 5-325MG [Turlock 5-325] 1 each PO Q4HR PRN tab PRN Reason: Pain Pravastatin Sodium [Pravachol] 20 mg PO HS tab Hydrocodone/Acetaminophen [Turlock 5-325] 1 tab PO Q6HR PRN 3 Days #18 tab PRN Reason: Pain Continue Multivitamin [Men's Multi-Vitamin] 1 tab PO HS Levothyroxine Sodium [Synthroid] 88 mcg PO HS Isosorbide Mononitrate ER [Imdur] 30 mg PO DAILY tab.er.24h Ferrous Sulfate [Iron (65 MG Elemental)] 325 mg PO DAILY Nitroglycerin Sl Tabs [Nitrostat] 0.4 mg SUBLINGUAL Q5M PRN tab PRN Reason: Chest Pain Albuterol Inhaler [Ventolin Hfa Inhaler] 2 puff INHALATION RT-QID puff Discontinued Telmisartan 80 mg PO HS Cefuroxime Axetil [Ceftin] 500 mg PO BID hydrALAZINE HCL [Apresoline] 75 mg PO TID tab Furosemide [Lasix] 40 mg PO BID@0900,1600 tab predniSONE See Taper PO DAILY Discharge Medication List Multivitamin [Men's Multi-Vitamin] 1 tab PO HS 12/13/14 [History] Levothyroxine Sodium [Synthroid] 88 mcg PO HS 08/30/19 [History] Isosorbide Mononitrate ER [Imdur] 30 mg PO DAILY tab.er.24h 09/02/19 [Rx] Ferrous Sulfate [Iron (65 MG Elemental)] 325 mg PO DAILY 09/09/19 [History] Albuterol Inhaler [Ventolin Hfa Inhaler] 2 puff INHALATION RT-QID puff 09/16/19 [Rx] Nitroglycerin Sl Tabs [Nitrostat] 0.4 mg SUBLINGUAL Q5M PRN tab 09/16/19 [Rx] Carvedilol [Coreg*] 12.5 mg PO BID #180 tablet 09/28/19 [Rx] Pravastatin Sodium [Pravachol] 20 mg PO DAILY #90 tab 09/28/19 [Rx] Aspirin 81 mg PO DAILY chew 10/02/19 [Rx] Carvedilol [Coreg*] 12.5 mg PO BID-W/MEALS tab 10/02/19 [Rx] Furosemide [Lasix] 40 mg PO DAILY tab 10/02/19 [Rx] HYDROcodone/APAP 5-325MG [Turlock 5-325] 1 each PO Q4HR PRN tab 10/02/19 [Rx] Hydrocodone/Acetaminophen [Turlock 5-325] 1 tab PO Q6HR PRN 3 Days #18 tab 10/02/19 [Rx] Losartan [Cozaar] 25 mg PO HS tab 10/02/19 [Rx] Nicotine 14Mg/24Hr Patch [Habitrol] 1 patch TRANSDERM DAILY patch 10/02/19 [Rx] Pravastatin Sodium [Pravachol] 20 mg PO HS tab 10/02/19 [Rx] hydrALAZINE HCL [Apresoline] 25 mg PO TID tab 10/02/19 [Rx] Follow up Appointment(s)/Referral(s): Lavon Owusu MD [STAFF PHYSICIAN] - 1 Week Alexandra Mitchell MD [Primary Care Provider] - 1-2 days Patient Instructions/Handouts: Pacemaker (DC) Activity/Diet/Wound Care/Special Instructions: PATIENT EDUCATION MATERIAL Instructions following a heart rhythm device implant. 1. Keep dressing DRY for 5 DAYS. You may cover the area with Saran or Cling Wrap, prior to a shower. 2. The dressing will be removed in the Device Clinic at [facility]. Absorbable sutures were used to close the wound. 3. Avoid raising the left arm above the shoulder level. 4 week restriction 4. Avoid arm movements, like backscratching, rubbing the head, or pulling on a cord. 4 weeks restriction 5. Gentle range of motion movements of the shoulder, closest to the incision should be performed to avoid a frozen shoulder. (Pendulum exercises of the shoulder) 6. The opposite arm may be used freely. 7. Avoid driving for 7 days. 8. Avoid activities such as golfing, swimming, weed whacking, lifting more than 10 pounds weight, bowling, gymnastics and weight training/lifting. (6 weeks restriction) 9. Activities such as wood chopping with an axe, pull-ups in the gymnasium, power lifting, arc-welding, being close to home induction cooktops will always be a problem. 10. Arm sling is only a reminder not to raise the arm above the head. You do not need to keep the arm completely immobilized. Your free to move the arm and use it and for normal activities. In case of any problems, please call [facility], Darren Davis, @ [phone], Attention: Device Clinic Device clinic follow-up in 5 days New medication carvedilol 6.25 mg twice daily Pravachol is for his heart not for cholesterol. Please take ASPIRIN 81MG three times a week. M/W/ Follow Dr. Owusu 6 weeks Discharge Disposition: HOME SELF-CARE
[2019-10-03] MEDS ORDERED: FUROSEMIDE 40 MG TAB PO SCH (09:00)
== END 2019-10-02 20:53 | disposition home or self-care (01) | DRG 242 ==
LOC: EC 17:39 → 3SCARD 19:32
PROVIDERS: ADMIT Internal Medicine; ATTEND Internal Medicine
PROC: 02H63JZ Insertion of Pacemaker Lead into Right Atrium, Percutaneous Approach (ICD-10-PCS; principal; 2019-09-28 11:45)
PROC: 02HK3JZ Insertion of Pacemaker Lead into Right Ventricle, Percutaneous Approach (ICD-10-PCS; principal; 2019-09-28 11:45)
PROC: 0JH607Z Insertion of Cardiac Resynchronization Pacemaker Pulse Generator into Chest Subcutaneous Tissue and Fascia, Open Approach (ICD-10-PCS; principal; 2019-09-28 11:45)
PROC: 02HL3JZ Insertion of Pacemaker Lead into Left Ventricle, Percutaneous Approach (ICD-10-PCS; principal; 2019-09-28 11:45)
PROC: B51N1ZZ Fluoroscopy of Left Upper Extremity Veins using Low Osmolar Contrast (ICD-10-PCS; 2019-09-28 11:45)
DX: I44.2 Atrioventricular block, complete (principal); I50.43 Acute on chronic combined systolic (congestive) and diastolic (congestive) heart failure; N17.0 Acute kidney failure with tubular necrosis; I13.0 Hypertensive heart and chronic kidney disease with heart failure and stage 1 through stage 4 chronic kidney disease, or unspecified chronic kidney disease; I42.8 Other cardiomyopathies; I49.5 Sick sinus syndrome; I48.0 Paroxysmal atrial fibrillation; N18.3 Chronic kidney disease, stage 3 (moderate); F17.200 Nicotine dependence, unspecified, uncomplicated; I25.10 Atherosclerotic heart disease of native coronary artery without angina pectoris; I35.0 Nonrheumatic aortic (valve) stenosis; J44.9 Chronic obstructive pulmonary disease, unspecified; K59.00 Constipation, unspecified; T50.2X5A Adverse effect of carbonic-anhydrase inhibitors, benzothiadiazides and other diuretics, initial encounter; E07.9 Disorder of thyroid, unspecified; K21.9 Gastro-esophageal reflux disease without esophagitis; K44.9 Diaphragmatic hernia without obstruction or gangrene; Z11.59 Encounter for screening for other viral diseases; D72.829 Elevated white blood cell count, unspecified; I73.9 Peripheral vascular disease, unspecified; R32 Unspecified urinary incontinence; Z79.82 Long term (current) use of aspirin; Z79.890 Hormone replacement therapy; Z79.899 Other long term (current) drug therapy; Z79.52 Long term (current) use of systemic steroids; Z88.2 Allergy status to sulfonamides; Z85.828 Personal history of other malignant neoplasm of skin; Z80.42 Family history of malignant neoplasm of prostate; Z80.49 Family history of malignant neoplasm of other genital organs; Z80.1 Family history of malignant neoplasm of trachea, bronchus and lung; Z80.8 Family history of malignant neoplasm of other organs or systems
CPT/HCPCS: 33208; 33225; 36415; 71046; 80048; 80053; 82550; 83605; 83735; 83880; 84484; 85025; 85610; 85730; 87635; 93005; 94640; 96374; 99291

== ENCOUNTER 2020-03-18 23:17 | Inpatient (IN) | payer MEDICARE ==
[2020-03-18] MEDS ORDERED: IPRATROPIUM-ALBUTEROL 3 ML NEB INHALATION STA (23:31)
--- NOTE | 2020-03-18 23:34 | ED ---
SOB HPI - General Chief Complaint: Shortness of Breath Stated Complaint: SOB Time Seen by Provider: 03/18/20 23:25 Source: patient Mode of arrival: ambulatory Limitations: no limitations - History of Present Illness Initial Comments: this patient is an 79-year-old man who presents to be evaluated for shortness of breath. He states that it had started coming on last night was a little better this morning but then started recurring tonight. He states he is finding it difficult to lie completely flat feeling a little better if he is slightly elevated. Patient also states she is having a little bit of swelling to the top of his feet bilaterally. Patient denies fever or chills. No chest pain or cough. He has not noted change in urination. MD Complaint: shortness of breath Onset/Timin -: hour(s) Severity: moderate Consistency: constant Improves With: nothing Worsens With: lying flat Known History Of: COPD Associated Symptoms: denies other symptoms Treatments Prior to Arrival: none - Related Data Home Oxygen Therapy: No Home Medications Medication Instructions Recorded Confirmed Multivitamin [Men's Multi-Vitamin] 1 tab PO HS 12/13/14 03/18/20 Levothyroxine Sodium [Synthroid] 88 mcg PO HS 08/30/19 03/18/20 Ferrous Sulfate [Iron (65 MG 325 mg PO HS 09/09/19 03/18/20 Elemental)] Albuterol Inhaler [Ventolin Hfa 2 puff INHALATION RT-Q4H PRN 03/18/20 03/18/20 Inhaler] Docusate [Colace] 100 mg PO HS 03/18/20 03/18/20 Furosemide [Lasix] 40 mg PO HS 03/18/20 03/18/20 Isosorbide Mononitrate ER [Imdur] 30 mg PO HS 03/18/20 03/18/20 Previous Rx's Medication Instructions Recorded carvediloL [Coreg*] 12.5 mg PO BID #180 tablet 09/28/19 Losartan [Cozaar] 25 mg PO HS tab 10/02/19 Pravastatin Sodium [Pravachol] 20 mg PO HS tab 10/02/19 hydrALAZINE HCL [Apresoline] 25 mg PO TID tab 10/02/19 Allergies Allergy/AdvReac Type Severity Reaction Status Date / Time Sulfa (Sulfonamide Allergy Rash/Hives Verified 03/18/20 23:42 Antibiotics) Review of Systems ROS Statement: Those systems with pertinent positive or pertinent negative responses have been documented in the HPI. ROS Other: All systems not noted in ROS Statement are negative. Constitutional: Reports: weakness. Denies: fever, chills Respiratory: Reports: as per HPI, dyspnea. Denies: cough, hemoptysis Cardiovascular: Denies: chest pain, palpitations, orthopnea, edema, syncope Gastrointestinal: Denies: abdominal pain, nausea, vomiting, melena, hematochezia Genitourinary: Denies: dysuria, hematuria Musculoskeletal: Denies: back pain Skin: Denies: rash Neurological: Denies: headache, weakness, numbness Past Medical History Past Medical History: Atrial Fibrillation, Blood Disorder, Heart Failure, COPD, GERD/Reflux, GI Bleed, Hypertension, Thyroid Disorder Additional Past Medical History / Comment(s): ANEMIA, HIATAL HERNIA (PER EGD) arrhythmia, skin cancer - RUE, LUE, R mormon, Nose (sees Dr. Cortez) PAST RT LEG ULCERS, chf History of Any Multi-Drug Resistant Organisms: VRE Date of last positivie culture/infection: 02/24/15 MDRO Source:: Right leg wound Past Surgical History: Adenoidectomy, Tonsillectomy Additional Past Surgical History / Comment(s): hemorrhoidectomy, tennis elbow, EGD. Past Anesthesia/Blood Transfusion Reactions: No Reported Reaction Past Psychological History: No Psychological Hx Reported Smoking Status: Former smoker Past Alcohol Use History: None Reported Past Drug Use History: None Reported - Past Family History Mother Family Medical History: No Reported History Daughter(s) History Unknown: Yes Family Medical History: Cancer Additional Family Medical History / Comment(s): uterine/lung/brain CA - current terminal Father History Unknown: Yes Family Medical History: Cancer Additional Family Medical History / Comment(s): prostate CA - from General Exam Limitations: no limitations General appearance: alert, in no apparent distress Head exam: Present: atraumatic, normocephalic Eye exam: Present: normal appearance. Absent: scleral icterus, conjunctival injection ENT exam: Present: normal oropharynx Neck exam: Present: normal inspection Respiratory exam: Present: wheezes. Absent: respiratory distress, rales, rhonchi, stridor Cardiovascular Exam: Present: regular rate, normal rhythm, systolic murmur. Absent: diastolic murmur, rubs, gallop Extremities exam: Present: normal inspection, normal capillary refill, pedal edema (trace bilateral edema). Absent: calf tenderness Back exam: Present: normal inspection. Absent: CVA tenderness (R), CVA tende rness (L) Neurological exam: Present: alert Skin exam: Present: warm, dry, intact, normal color. Absent: rash Course Vital Signs 03/18/20 03/19/20 03/19/20 23:19 00:20 00:46 Temperature 98.0 F Pulse Rate 87 76 76 Respiratory 20 20 Rate Blood Pressure 200/74 184/67 O2 Sat by Pulse 93 L 94 L Oximetry 03/19/20 03/19/20 03/19/20 00:57 01:00 01:28 Temperature Pulse Rate 74 81 Respiratory 20 Rate Blood Pressure 183/68 180/62 O2 Sat by Pulse 98 Oximetry 03/19/20 03/19/20 03/19/20 03:19 06:26 09:32 Temperature Pulse Rate 83 84 69 Respiratory 16 20 Rate Blood Pressure 176/65 168/66 132/53 O2 Sat by Pulse 96 97 99 Oximetry 03/19/20 03/19/20 14:57 17:57 Temperature 98.0 F Pulse Rate 64 68 Respiratory 16 16 Rate Blood Pressure 133/59 157/66 O2 Sat by Pulse 97 100 Oximetry Medical Decision Making - Medical Decision Making this patient is an 79-year-old man presents to be evaluated for dyspnea. he is also having some mild orthopnea nd some foot edema associated. workup does reveal what appears to becongestive heart failure. Patient has mildly elevatedtroponin suspect this is related to the congestive heart failure patient does have elevated d-dimer but this has been higher previously and he was studied without finding PE. The patient's renal function does not support having CT with contrast. Patient therefore be given 1 dose of Lovenox and have echocardiogram, if there is evidence of heart strain patient can have VQ scan. - Lab Data Result diagrams: 03/22/20 07:17 03/22/20 07:17 Lab Results 03/19/20 03/19/20 03/19/20 Range/Units 00:24 00:24 00:24 WBC 10.6 (3.8-10.6) k/uL RBC 4.21 L (4.30-5.90) m/uL Hgb 11.7 L (13.0-17.5) gm/dL Hct 37.0 L (39.0-53.0) % MCV 88.1 (80.0-100.0) fL MCH 27.7 (25.0-35.0) pg MCHC 31.5 (31.0-37.0) g/dL RDW 15.5 (11.5-15.5) % Plt Count 255 (150-450) k/uL Neutrophils % 84 % Lymphocytes % 5 % Monocytes % 5 % Eosinophils % 4 % Basophils % 1 % Neutrophils # 8.9 H (1.3-7.7) k/uL Lymphocytes # 0.6 L (1.0-4.8) k/uL Monocytes # 0.5 (0-1.0) k/uL Eosinophils # 0.4 (0-0.7) k/uL Basophils # 0.1 (0-0.2) k/uL Hypochromasia Slight PT 10.0 (9.0-12.0) sec INR 1.0 (<1.2) APTT 26.8 (22.0-30.0) sec D-Dimer 1.28 H (<0.60) mg/L FEU Sodium 139 (137-145) mmol/L Potassium 4.1 (3.5-5.1) mmol/L Chloride 108 H (98-107) mmol/L Carbon Dioxide 26 (22-30) mmol/L Anion Gap 5 mmol/L BUN 45 H (9-20) mg/dL Creatinine 2.06 H (0.66-1.25) mg/dL Est GFR (CKD-EPI)AfAm 34 (>60 ml/min/1.73 sqM) Est GFR (CKD-EPI)NonAf 30 (>60 ml/min/1.73 sqM) Glucose 105 H (74-99) mg/dL Plasma Lactic Acid Nacho (0.7-2.0) mmol/L Calcium 9.7 (8.4-10.2) mg/dL Total Bilirubin 0.5 (0.2-1.3) mg/dL AST 36 (17-59) U/L ALT 31 (4-49) U/L Alkaline Phosphatase 93 (38-126) U/L Troponin I (0.000-0.034) ng/mL NT-Pro-B Natriuret Pep pg/mL Total Protein 6.8 (6.3-8.2) g/dL Albumin 4.1 (3.5-5.0) g/dL Influenza Type A RNA (Not Detectd) Influenza Type B (PCR) (Not Detectd) 03/19/20 03/19/20 03/19/20 Range/Units 00:24 00:24 00:24 WBC (3.8-10.6) k/uL RBC (4.30-5.90) m/uL Hgb (13.0-17.5) gm/dL Hct (39.0-53.0) % MCV (80.0-100.0) fL MCH (25.0-35.0) pg MCHC (31.0-37.0) g/dL RDW (11.5-15.5) % Plt Count (150-450) k/uL Neutrophils % % Lymphocytes % % Monocytes % % Eosinophils % % Basophils % % Neutrophils # (1.3-7.7) k/uL Lymphocytes # (1.0-4.8) k/uL Monocytes # (0-1.0) k/uL Eosinophils # (0-0.7) k/uL Basophils # (0-0.2) k/uL Hypochromasia PT (9.0-12.0) sec INR (<1.2) APTT (22.0-30.0) sec D-Dimer (<0.60) mg/L FEU Sodium (137-145) mmol/L Potassium (3.5-5.1) mmol/L Chloride (98-107) mmol/L Carbon Dioxide (22-30) mmol/L Anion Gap mmol/L BUN (9-20) mg/dL Creatinine (0.66-1.25) mg/dL Est GFR (CKD-EPI)AfAm (>60 ml/min/1.73 sqM) Est GFR (CKD-EPI)NonAf (>60 ml/min/1.73 sqM) Glucose (74-99) mg/dL Plasma Lactic Acid Nacho 0.9 (0.7-2.0) mmol/L Calcium (8.4-10.2) mg/dL Total Bilirubin (0.2-1.3) mg/dL AST (17-59) U/L ALT (4-49) U/L Alkaline Phosphatase (38-126) U/L Troponin I 0.094 H* (0.000-0.034) ng/mL NT-Pro-B Natriuret Pep 32768 pg/mL Total Protein (6.3-8.2) g/dL Albumin (3.5-5.0) g/dL Influenza Type A RNA (Not Detectd) Influenza Type B (PCR) (Not Detectd) 03/19/20 03/19/20 03/20/20 Range/Units 00:24 01:58 08:25 WBC 6.7 (3.8-10.6) k/uL RBC 3.78 L (4.30-5.90) m/uL Hgb 10.7 L (13.0-17.5) gm/dL Hct 33.6 L (39.0-53.0) % MCV 89.0 (80.0-100.0) fL MCH 28.3 (25.0-35.0) pg MCHC 31.8 (31.0-37.0) g/dL RDW 15.3 (11.5-15.5) % Plt Count 219 (150-450) k/uL Neutrophils % 84 % Lymphocytes % 7 % Monocytes % 5 % Eosinophils % 3 % Basophils % 0 % Neutrophils # 5.6 (1.3-7.7) k/uL Lymphocytes # 0.5 L (1.0-4.8) k/uL Monocytes # 0.3 (0-1.0) k/uL Eosinophils # 0.2 (0-0.7) k/uL Basophils # 0.0 (0-0.2) k/uL Hypochromasia Slight PT (9.0-12.0) sec INR (<1.2) APTT (22.0-30.0) sec D-Dimer (<0.60) mg/L FEU Sodium (137-145) mmol/L Potassium (3.5-5.1) mmol/L Chloride (98-107) mmol/L Carbon Dioxide (22-30) mmol/L Anion Gap mmol/L BUN (9-20) mg/dL Creatinine (0.66-1.25) mg/dL Est GFR (CKD-EPI)AfAm (>60 ml/min/1.73 sqM) Est GFR (CKD-EPI)NonAf (>60 ml/min/1.73 sqM) Glucose (74-99) mg/dL Plasma Lactic Acid Nacho (0.7-2.0) mmol/L Calcium (8.4-10.2) mg/dL Total Bilirubin (0.2-1.3) mg/dL AST (17-59) U/L ALT (4-49) U/L Alkaline Phosphatase (38-126) U/L Troponin I 0.098 H* (0.000-0.034) ng/mL NT-Pro-B Natriuret Pep pg/mL Total Protein (6.3-8.2) g/dL Albumin (3.5-5.0) g/dL Influenza Type A RNA Not Detected (Not Detectd) Influenza Type B (PCR) Not Detected (Not Detectd) 03/20/20 Range/Units 08:25 WBC (3.8-10.6) k/uL RBC (4.30-5.90) m/uL Hgb (13.0-17.5) gm/dL Hct (39.0-53.0) % MCV (80.0-100.0) fL MCH (25.0-35.0) pg MCHC (31.0-37.0) g/dL RDW (11.5-15.5) % Plt Count (150-450) k/uL Neutrophils % % Lymphocytes % % Monocytes % % Eosinophils % % Basophils % % Neutrophils # (1.3-7.7) k/uL Lymphocytes # (1.0-4.8) k/uL Monocytes # (0-1.0) k/uL Eosinophils # (0-0.7) k/uL Basophils # (0-0.2) k/uL Hypochromasia PT (9.0-12.0) sec INR (<1.2) APTT (22.0-30.0) sec D-Dimer (<0.60) mg/L FEU Sodium 139 (137-145) mmol/L Potassium 3.6 (3.5-5.1) mmol/L Chloride 104 (98-107) mmol/L Carbon Dioxide 27 (22-30) mmol/L Anion Gap 8 mmol/L BUN 56 H (9-20) mg/dL Creatinine 2.12 H (0.66-1.25) mg/dL Est GFR (CKD-EPI)AfAm 33 (>60 ml/min/1.73 sqM) Est GFR (CKD-EPI)NonAf 29 (>60 ml/min/1.73 sqM) Glucose 146 H (74-99) mg/dL Plasma Lactic Acid Nacho (0.7-2.0) mmol/L Calcium 8.5 (8.4-10.2) mg/dL Total Bilirubin 0.6 (0.2-1.3) mg/dL AST 24 (17-59) U/L ALT 21 (4-49) U/L Alkaline Phosphatase 66 (38-126) U/L Troponin I (0.000-0.034) ng/mL NT-Pro-B Natriuret Pep pg/mL Total Protein 6.0 L (6.3-8.2) g/dL Albumin 3.5 (3.5-5.0) g/dL Influenza Type A RNA (Not Detectd) Influenza Type B (PCR) (Not Detectd) Disposition Clinical Impression: Elevated troponin, Congestive heart failure Disposition: ADMITTED IP TO THIS HOSP Condition: Fair
--- NOTE | 2020-03-19 00:01 | XR ---
EXAMINATION TYPE: XR chest 2V DATE OF EXAM: 03/18/2020 COMPARISON: 09/29/2019 HISTORY: Difficulty breathing TECHNIQUE: FINDINGS: There is mild blunting of the costophrenic angles. There is no gross heart failure. Heart i s enlarged. There is left axillary pacemaker. There are no hilar masses. Bony thorax is intact. There is some osteopenia. IMPRESSION: Cardiomegaly with small pleural effusions and consistent with minimal heart failure. Pulm onary congestion is increased slightly compared to old exam.
[2020-03-19 00:33] LABS: Basophils # (A) 0.1 k/uL (0-0.2); Basophils % (A) 1 %; Eosinophils # (A) 0.4 k/uL (0-0.7); Eosinophils % (A) 4 %; HGB 11.7 gm/dL (13.0-17.5); Hypochromasia Slight; Lymphocytes # (A) 0.6 k/uL (1.0-4.8); Lymphocytes % (A) 5 %; MCH 27.7 pg (25.0-35.0); MCHC 31.5 g/dL (31.0-37.0); MCV 88.1 fL (80.0-100.0); Mean Platelet Volume 8.1; Monocytes # (A) 0.5 k/uL (0-1.0); Monocytes % (A) 5 %; Neutrophils # (A) 8.9 k/uL (1.3-7.7); Neutrophils % (A) 84 %; Platelet Count 255 k/uL (150-450); RBC 4.21 m/uL (4.30-5.90); RDW 15.5 % (11.5-15.5); WBC 10.6 k/uL (3.8-10.6)
[2020-03-19 00:47] LABS: Albumin 4.1 g/dL (3.5-5.0); Calcium 9.7 mg/dL (8.4-10.2); Potassium 4.1 mmol/L (3.5-5.1); Total Bilirubin 0.5 mg/dL (0.2-1.3); Total Protein 6.8 g/dL (6.3-8.2)
[2020-03-19 00:49] LABS: Partial Thromboplastin Time 26.8 sec (22.0-30.0)
[2020-03-19 01:01] LABS: D-Dimer 1.28 mg/L FEU (<0.60)
[2020-03-19] MEDS ORDERED: FUROSEMIDE 10 MG/ML 4 ML VIAL IV STA (01:08)
[2020-03-19] MEDS ORDERED: NITROGLYCERIN OINT 1 INCH/GM PACKET TOPICAL STA (01:09)
[2020-03-19] MEDS ORDERED: ENOXAPARIN 80 MG/0.8 ML SYRINGE SQ STA (01:10)
[2020-03-19] MEDS ORDERED: ENOXAPARIN 100 MG/ML SYRINGE SQ STA (01:13)
[2020-03-19] MEDS: FUROSEMIDE 10 MG/ML 4 ML VIAL IV SCH ×2 (03:21→14:58)
[2020-03-19] MEDS: NITROGLYCERIN OINT 1 INCH/GM PACKET TOPICAL SCH ×4 (08:18→23:15)
[2020-03-19] MEDS: hydrALAZINE HCL 25 MG TAB PO SCH ×3 (08:18→21:43)
[2020-03-19] MEDS: carvediloL 12.5 MG TAB PO SCH ×2 (08:18→17:56)
--- NOTE | 2020-03-19 09:43 | P.HPIM ---
History of Present Illness H&P Date: 03/19/20 Sean Lin, is an 79-year-old male who presented to [facility] emergency room with a chief complaint of worsening shortness of breath, and occasional cough, symptoms started 2 days prior to presentation and has been worsening. He was evaluated in the emergency room, vital examination on presentation revealed a temperature of 98 pulse 87 respiration 20 blood pressure 200/74 pulse ox 93% on room air, his white blood count was 10.6 hemoglobin 11.7 d-dimer 1.28 BUN 45 creatinine 2.06 troponin level on presentation was slightly elevated at 0.094 and BNP was elevated at 23,000 EKG revealed ventricular paced rhythm with a heart rate of 82 chest x-ray revealed evidence of pulmonary congestion with cardiomegaly and small bilateral pleural effusion consistent was congestive heart failure. Patient has a prolonged cardiac history, last echocardiogram done in August of this year revealed evidence of cardiomyopathy with ejection fraction between 25- 30%, grade 3 diastolic dysfunction, and moderate aortic stenosis. Patient also has history of cardiac arrhythmia he underwent biventricular pacemaker implant on 09/28/[address] Owusu. He has been doing reasonably well as outpatient until a few days ago. On review of systems patient is complaining of shortness of breath and occasional cough otherwise he denies any symptoms there is no fever or chills no headache or dizziness no chest pain, no palpitation no nausea or vomiting no abdominal pain no diarrhea no blood in the stools no burning with urination no frequency or urgency and no hematuria Past Medical History Past Medical History: Atrial Fibrillation, Blood Disorder, Heart Failure, COPD, GERD/Reflux, GI Bleed, Hypertension, Thyroid Disorder Additional Past Medical History / Comment(s): ANEMIA, HIATAL HERNIA (PER EGD) arrhythmia, skin cancer - RUE, LUE, R hinduism, Nose (sees Dr. Cortez) PAST RT LEG ULCERS, chf History of Any Multi-Drug Resistant Organisms: VRE Date of last positivie culture/infection: 02/24/15 MDRO Source:: Right leg wound Past Surgical History: Adenoidectomy, Tonsillectomy Additional Past Surgical History / Comment(s): hemorrhoidectomy, tennis elbow, EGD. Past Anesthesia/Blood Transfusion Reactions: No Reported Reaction Past Psychological History: No Psychological Hx Reported Smoking Status: Former smoker Past Alcohol Use History: None Reported Past Drug Use History: None Reported - Past Family History Mother Family Medical History: No Reported History Daughter(s) History Unknown: Yes Family Medical History: Cancer Additional Family Medical History / Comment(s): uterine/lung/brain CA - current terminal Father History Unknown: Yes Family Medical History: Cancer Additional Family Medical History / Comment(s): prostate CA - from Medications and Allergies Home Medications Medication Instructions Recorded Confirmed Type Multivitamin [Men's Multi-Vitamin] 1 tab PO HS 12/13/14 03/18/20 History Levothyroxine Sodium [Synthroid] 88 mcg PO HS 08/30/19 03/18/20 History Ferrous Sulfate [Iron (65 MG 325 mg PO HS 09/09/19 03/18/20 History Elemental)] carvediloL [Coreg*] 12.5 mg PO BID #180 tablet 09/28/19 03/18/20 Rx Losartan [Cozaar] 25 mg PO HS tab 10/02/19 03/18/20 Rx Pravastatin Sodium [Pravachol] 20 mg PO HS tab 10/02/19 03/18/20 Rx hydrALAZINE HCL [Apresoline] 25 mg PO TID tab 10/02/19 03/18/20 Rx Albuterol Inhaler [Ventolin Hfa 2 puff INHALATION RT-Q4H PRN 03/18/20 03/18/20 History Inhaler] Docusate [Colace] 100 mg PO HS 03/18/20 03/18/20 History Furosemide [Lasix] 40 mg PO HS 03/18/20 03/18/20 History Isosorbide Mononitrate ER [Imdur] 30 mg PO HS 03/18/20 03/18/20 History Allergies Allergy/AdvReac Type Severity Reaction Status Date / Time Sulfa (Sulfonamide Allergy Rash/Hives Verified 03/18/20 23:42 Antibiotics) Physical Exam Vitals: Vital Signs Temp Pulse Resp BP Pulse Ox 03/19/20 07:25 69 16 161/59 96 03/19/20 06:26 84 16 168/66 97 03/19/20 03:19 83 176/65 96 03/19/20 01:28 180/62 03/19/20 01:00 81 20 183/68 98 03/19/20 00:57 74 03/19/20 00:46 76 03/19/20 00:20 76 20 184/67 94 L 03/18/20 23:19 98.0 F 87 20 200/74 93 L Intake and Output 03/18/20 03/19/20 03/19/20 22:59 06:59 14:59 Other: Weight 83.915 kg In general patient is alert and oriented 3 in no apparent distress HEENT head normocephalic and atraumatic Neck is supple no JVD no goiter no lymphadenopathy Chest exam reveals a few scattered crackles bilaterally no wheezing Cardiac exam reveals regular heart sounds S1 and S2 with 2/6 systolic murmur best heard in the right sternal border Abdomen is soft nontender no organomegaly with normal bowel sounds Extremity exam reveals 2+ edema no cyanosis or clubbing Neurological examination reveals no gross focal deficit Results CBC & Chem 7: 03/19/20 00:24 03/19/20 00:24 Labs: Abnormal Lab Results - Last 24 Hours (Table) 03/19/20 03/19/20 03/19/20 Range/Units 00:24 00:24 00:24 RBC 4.21 L (4.30-5.90) m/uL Hgb 11.7 L (13.0-17.5) gm/dL Hct 37.0 L (39.0-53.0) % Neutrophils # 8.9 H (1.3-7.7) k/uL Lymphocytes # 0.6 L (1.0-4.8) k/uL D-Dimer 1.28 H (<0.60) mg/L FEU Chloride 108 H (98-107) mmol/L BUN 45 H (9-20) mg/dL Creatinine 2.06 H (0.66-1.25) mg/dL Glucose 105 H (74-99) mg/dL Troponin I (0.000-0.034) ng/mL 03/19/20 03/19/20 Range/Units 00:24 01:58 RBC (4.30-5.90) m/uL Hgb (13.0-17.5) gm/dL Hct (39.0-53.0) % Neutrophils # (1.3-7.7) k/uL Lymphocytes # (1.0-4.8) k/uL D-Dimer (<0.60) mg/L FEU Chloride (98-107) mmol/L BUN (9-20) mg/dL Creatinine (0.66-1.25) mg/dL Glucose (74-99) mg/dL Troponin I 0.094 H* 0.098 H* (0.000-0.034) ng/mL Assessment and Plan Plan: 1. 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 Elevated d-dimer 3. Mild elevation in troponin level 4. Underlying history of valvular heart disease with moderate aortic stenosis 4. Underlying history of cardiac arrhythmia, with heart block, status post biventricular pacemaker implant in September of this year 5. Chronic kidney disease stage III At this time patient will be admitted to telemetry floor Cardiology and pulmonary consultation requested Patient was started on full therapeutic dose of Lovenox 80 mg subcu twice daily Awaiting input from cardiology and pulmonary in regard to elevated d-dimer and elevated troponin levels Patient was started on IV diuresis Will monitor kidney function closely
--- NOTE | 2020-03-19 09:53 | CONS ---
JILLIAN Estrada is an 79-year-old gentleman with history of cardiomyopathy with severe LV dysfunction, biventricular AICD, paroxysmal atrial fibrillation, coronary artery disease, and chronic systolic , comes in complaining of shortness of breath, PND and orthopnea and mild leg edema. He is found to be in acute exacerbation of chronic systolic heart failure. The chest x-ray showed pleural effusion. His EKG shows paced rhythm. An echocardiogram was being done that I reviewed at bedside shows severe LV dysfunction. His chest x-ray showed cardiomegaly with congestion and pleural effusion. LABS: Show that the creatinine is elevated at 2 and the troponin is elevated at 0.09 and 0.09 secondary to renal failure. The patient's BNP is elevated at 23,000. PAST MEDICAL HISTORY: Significant for coronary artery disease, ischemic cardiomyopathy, chronic systolic heart failure, hypertension, dyslipidemia, biventricular pacemaker. CURRENT MEDICATIONS: Apresoline, Coreg 12.5 b.i.d., pravastatin 40 daily, Cozaar 25 q. daily Synthroid, Imdur, Lasix, albuterol. ALLERGIES: SULFA. FAMILY HISTORY: Negative for premature coronary artery disease. SOCIAL HISTORY: Negative for current smoking, EtOH abuse, or drug abuse. REVIEW OF SYSTEMS: HEENT: Unremarkable. CARDIAC: As described above. RESPIRATORY: As described above. GI: Negative. GENITOURINARY; Negative. ALLERGY/IMMUNOLOGY: Negative. SKIN: Negative. MUSCULOSKELETAL: Significant for arthritis. PSYCHOSOCIAL: Negative. ENDOCRINE: Negative. CONSTITUTIONAL: Significant for fatigue and tiredness. RENAL: Significant for renal insufficiency. Rest of the system review is not relevant. PHYSICAL EXAM: Heart rate is 69 beats per minute. Blood pressure is 160/90, respiratory 16, O2 saturation is 96% on room air. There is no jugular venous distention. Chest exam reveals diminished air entry with occasional crackles. Heart exam reveals first and second heart sounds. Systolic murmur at the apex, grade 3 x 6. Abdomen is soft. Exam of extremities reveals mild edema. Peripheral pulses are diminished. LABS: Show a hemoglobin of 11.7, platelet count is 255. Potassium is 4.1, BUN is 40, creatinine is 2. Troponin is mildly elevated. BNP is 23,000. ASSESSMENT: 1. Acute exacerbation of chronic systolic heart failure. 2. Coronary artery disease. 3. History of atrial fibrillation. 4. Hypertension. PLAN: I will treat the patient with IV Lasix, beta blockers, hold the PEDRO LUIS inhibitors and nitrates and I will further adjust the medications as tolerated. MMODL / IJN: [id number] /
--- NOTE | 2020-03-19 09:57 | ECHOF ---
Referral Reason:Heart Failure MEASUREMENTS -------- HEIGHT: 175.3 cm WEIGHT: 88.5 kg BP: IVSd: 1.4 cm (0.6 - 1.1) LVIDd: 6.4 cm (3.9 - 5.3) LVPWd: 1.5 cm (0.6 - 1.1) IVSs: 2.2 cm LVIDs: 5.0 cm LVPWs: 1.9 cm LA Diam: 5.7 cm (2.7 - 3.8) LAESV Index (A-L): 82.19 ml/m Ao Diam: 3.2 cm (2.0 - 3.7) AV Cusp: 1.0 cm (1.5 - 2.6) MV EXCURSION: 12.364 mm (> 18.000) MV EF SLOPE: 97 mm/s (70 - 150) EPSS: 2.2 cm MV E Renato: 0.76 m/s MV DecT: 265 ms MV A Renato: 0.83 m/s MV E/A Ratio: 0.92 AV maxP.91 mmHg AV meanP.18 mmHg AR PHT: 374 ms RAP: 5.00 mmHg RVSP: 66.25 mmHg FINDINGS -------- Paced rhythm. This was a techncally difficult study with suboptimal views, , Lumason utilized for enhancement of im ages. The left ventricular size is normal. There is moderate concentric left ventricular hypertrophy. O verall left ventricular systolic function is moderately impaired with, an EF between 35 - 40 %. Ant erseptal Hypokinesis [place] Hypokinesis. ?? Takatsubo The right ventricle is normal in size. The left atrium is markedly dilated. LA is severely dilated >40 ml/m2 The right atrial size is normal. There is spdg-by-bvoltyyy aortic regurgitation. There is moderate aortic stenosis present. Peak/m sherice gradient across the Aortic Valve is 31.91mmHg / 14.18mmHg. The peak and mean MV gradients are 19.36mmHg 6.25mmHg as measured by doppler. Jwii-qt-rwrmddfq mitr al stenosis. Mild tricuspid regurgitation present. There is moderate pulmonary hypertension. Trace/mild (physiologic) pulmonic regurgitation. The aortic root size is normal. There is no pericardial effusion. CONCLUSIONS -------- 1. This was a techncally difficult study with suboptimal views, , Lumason utilized for enhancement of images. 2. The left ventricular size is normal. 3. There is moderate concentric left ventricular hypertrophy. 4. Anterseptal Hypokinesis 5. [place] Hypokinesis. 6. The right ventricle is normal in size. 7. The left atrium is markedly dilated. 8. LA is severely dilated >40 ml/m2 9. The right atrial size is normal. 10. There is wvgo-gn-rkggjsta aortic regurgitation. 11. There is moderate aortic stenosis present. 12. Peak/mean gradient across the Aortic Valve is 31.91mmHg / 14.18mmHg. 13. The peak and mean MV gradients are 19.36mmHg 6.25mmHg as measured by doppler. 14. Jgap-if-uqbsxxcu mitral stenosis. 15. Mild tricuspid regurgitation present. 16. There is moderate pulmonary hypertension. 17. Trace/mild (physiologic) pulmonic regurgitation. 18. The aortic root size is normal. 19. There is no pericardial effusion. RULES EXAMINER: Ruth Bella RDCS
[2020-03-19] MEDS: FERROUS SULFATE 325 MG TAB PO SCH (20:06)
[2020-03-19] MEDS: DOCUSATE 100 MG CAP PO SCH (20:06)
[2020-03-19] MEDS: ISOSORBIDE MONONITRATE ER 30 MG TAB.ER.24H PO SCH (20:06)
[2020-03-19] MEDS: PRAVASTATIN SODIUM 20 MG TAB PO SCH (20:06)
[2020-03-19] MEDS: LOSARTAN 25 MG TAB PO SCH (20:06)
[2020-03-19] MEDS: MULTIVITAMINS, THERA 1 EACH TAB PO SCH (20:06)
[2020-03-19] MEDS: LEVOTHYROXINE 88 MCG TAB PO SCH (20:10)
[2020-03-19] MEDS: ENOXAPARIN 80 MG/0.8 ML SYRINGE SQ SCH (20:10)
[2020-03-19] MEDS: NICOTINE 21MG/24HR PATCH TRANSDERM SCH (21:43)
[2020-03-20] MEDS: FUROSEMIDE 10 MG/ML 4 ML VIAL IV SCH ×2 (01:47→13:25)
[2020-03-20] MEDS: carvediloL 12.5 MG TAB PO SCH ×2 (06:42→16:48)
[2020-03-20] MEDS: hydrALAZINE HCL 25 MG TAB PO SCH ×3 (08:23→22:33)
[2020-03-20] MEDS: NICOTINE 21MG/24HR PATCH TRANSDERM SCH (08:23)
[2020-03-20] MEDS: NITROGLYCERIN OINT 1 INCH/GM PACKET TOPICAL SCH ×2 (08:24→13:25)
[2020-03-20 08:48] LABS: Basophils % (A) 0 %; Eosinophils # (A) 0.2 k/uL (0-0.7); Eosinophils % (A) 3 %; HCT 33.6 % (39.0-53.0); HGB 10.7 gm/dL (13.0-17.5); Hypochromasia Slight; Lymphocytes # (A) 0.5 k/uL (1.0-4.8); Lymphocytes % (A) 7 %; MCH 28.3 pg (25.0-35.0); MCHC 31.8 g/dL (31.0-37.0); Mean Platelet Volume 8.4; Monocytes # (A) 0.3 k/uL (0-1.0); Monocytes % (A) 5 %; Neutrophils # (A) 5.6 k/uL (1.3-7.7); Neutrophils % (A) 84 %; Platelet Count 219 k/uL (150-450); RBC 3.78 m/uL (4.30-5.90); RDW 15.3 % (11.5-15.5); WBC 6.7 k/uL (3.8-10.6)
[2020-03-20 09:04] LABS: Potassium 3.6 mmol/L (3.5-5.1)
[2020-03-20 09:05] LABS: Albumin 3.5 g/dL (3.5-5.0); Calcium 8.5 mg/dL (8.4-10.2); Total Bilirubin 0.6 mg/dL (0.2-1.3)
--- NOTE | 2020-03-20 14:13 | P.PN ---
Subjective Progress Note Date: 03/20/20 Sean Lin, is an 79-year-old male who presented to [facility] emergency room with a chief complaint of worsening shortness of breath, and occasional cough, symptoms started 2 days prior to presentation and has been worsening. He was evaluated in the emergency room, vital examination on presentation revealed a temperature of 98 pulse 87 respiration 20 blood pressure 200/74 pulse ox 93% on room air, his white blood count was 10.6 hemoglobin 11.7 d-dimer 1.28 BUN 45 creatinine 2.06 troponin level on presentation was slightly elevated at 0.094 and BNP was elevated at 23,000 EKG revealed ventricular paced rhythm with a heart rate of 82 chest x-ray revealed evidence of pulmonary congestion with cardiomegaly and small bilateral pleural effusion consistent was congestive heart failure. Patient has a prolonged cardiac history, last echocardiogram done in August of this year revealed evidence of cardiomyopathy with ejection fraction between 25- 30%, grade 3 diastolic dysfunction, and moderate aortic stenosis. Patient also has history of cardiac arrhythmia he underwent biventricular pacemaker implant on 09/28/[address] Owusu. He has been doing reasonably well as outpatient until a few days ago. On review of systems patient is complaining of shortness of breath and occa sional cough otherwise he denies any symptoms there is no fever or chills no headache or dizziness no chest pain, no palpitation no nausea or vomiting no abdominal pain no diarrhea no blood in the stools no burning with urination no frequency or urgency and no hematuria On 03/20/2020 patient was seen and examined on the telemetry floor, he is alert and oriented 3 in no distress he is reporting improvement in his shortness of breath he is diuresing well he is maintained on Lasix 40 mg IV every 12 hours otherwise he denies any complaints there is no fever or chills no headache or dizziness no chest pain no cough no nausea or vomiting no abdominal pain no diarrhea no blood in the stools no burning with urination no frequency or urgency no hematuria Objective - Vital Signs Vital signs: Vital Signs Temp 97.9 F 03/20/20 08:15 Pulse 65 03/20/20 12:02 Resp 18 03/20/20 12:02 BP 129/59 03/20/20 12:02 Pulse Ox 100 03/20/20 12:02 Intake & Output 03/19/20 03/20/2020 18:59 06:59 18:59 Intake Total 1140 Output Total 400 350 Balance -400 -350 1140 Weight 83.915 kg 83.3 kg 83.3 kg Intake: Oral 1140 Output: Urine 400 350 Other: Voiding Method Urinal # Voids 1 - Exam In general patient is alert and oriented 3 in no apparent distress HEENT head normocephalic and atraumatic Neck is supple no JVD no goiter no lymphadenopathy Chest exam reveals a few scattered crackles bilaterally no wheezing Cardiac exam reveals regular heart sounds S1 and S2 with 2/6 systolic murmur best heard in the right sternal border Abdomen is soft nontender no organomegaly with normal bowel sounds Extremity exam reveals 2+ edema no cyanosis or clubbing Neurological examination reveals no gross focal deficit - Labs CBC & Chem 7: 03/20/20 08:25 03/20/20 08:25 Labs: Abnormal Lab Results - Last 24 Hours (Table) 03/20/20 03/20/20 Range/Units 08:25 08:25 RBC 3.78 L (4.30-5.90) m/uL Hgb 10.7 L (13.0-17.5) gm/dL Hct 33.6 L (39.0-53.0) % Lymphocytes # 0.5 L (1.0-4.8) k/uL BUN 56 H (9-20) mg/dL Creatinine 2.12 H (0.66-1.25) mg/dL Glucose 146 H (74-99) mg/dL Total Protein 6.0 L (6.3-8.2) g/dL Assessment and Plan Plan: 1. 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 Elevated d-dimer 3. Mild elevation in troponin level 4. Underlying history of valvular heart disease with moderate aortic stenosis 4. Underlying history of cardiac arrhythmia, with heart block, status post biventricular pacemaker implant in September of this year 5. Chronic kidney disease stage III At this time patient will be admitted to telemetry floor Cardiology and pulmonary consultation requested Patient was started on full therapeutic dose of Lovenox 80 mg subcu twice daily Awaiting input from cardiology and pulmonary in regard to elevated d-dimer and elevated troponin levels Patient was started on IV diuresis Will monitor kidney function closely
--- NOTE | 2020-03-20 14:44 | P.PN ---
Subjective Progress Note Date: 03/20/20 HISTORY OF PRESENT ILLNESS: Patient examined this morning at the bedside. He reports his shortness of breath is improving. He remains on IV Lasix. Fluid balance over the last 24 hours is -750 mL. Creatinine 2.12. Echocardiogram completed reveals ejection fraction between 35 and 40%, yxey-zx-wcmjbhup mitral stenosis, mild tricuspid regurgitation, mild to moderate aortic regurgitation, and moderate pulmonary hypertension PHYSICAL EXAM: VITAL SIGNS: Reviewed. GENERAL: Well-developed in no acute distress. NECK: Supple. No JVD or thyromegaly LUNGS: Respirations even and unlabored. Lungs diminished with fine rales to the bases. HEART: Regular rate and rhythm. S1 and S2 heard. Systolic murmur EXTREMITIES: Normal range of motion. No clubbing or cyanosis. Peripheral pulses intact. Trace bilateral lower extremity edema ASSESSMENT: Acute exacerbation of chronic systolic heart failure, EF 35-40% Elevated troponins, no evidence of acute coronary syndrome Coronary artery disease Hypertension Chronic kidney disease History of pacemaker insertion PLAN: Continue current cardiac medications Continue IV Lasix Daily weights Accurate I&O Obtain nephrology consult per Dr. Rush Further recommendations pending patient's course Nurse practitioner note has been reviewed by physician. Signing provider agrees with the documented findings, assessment, and plan of care. Objective - Vital Signs Vital signs: Vital Signs Temp 97.9 F 03/20/20 08:15 Pulse 65 03/20/20 12:02 Resp 18 03/20/20 12:02 BP 129/59 03/20/20 12:02 Pulse Ox 100 03/20/20 12:02 Intake & Output 03/19/20 03/20/20 03/20/20 18:59 06:59 18:59 Intake Total 1140 Output Total 400 350 Balance -400 -350 1140 Weight 83.915 kg 83.3 kg 83.3 kg Intake: Oral 1140 Output: Urine 400 350 Other: Voiding Method Urinal # Voids 1 - Labs CBC & Chem 7: 03/20/20 08:25 03/20/20 08:25 Labs: Abnormal Lab Results - Last 24 Hours (Table) 03/20/20 03/20/20 Range/Units 08:25 08:25 RBC 3.78 L (4.30-5.90) m/uL Hgb 10.7 L (13.0-17.5) gm/dL Hct 33.6 L (39.0-53.0) % Lymphocytes # 0.5 L (1.0-4.8) k/uL BUN 56 H (9-20) mg/dL Creatinine 2.12 H (0.66-1.25) mg/dL Glucose 146 H (74-99) mg/dL Total Protein 6.0 L (6.3-8.2) g/dL
--- NOTE | 2020-03-20 17:36 | P.CNPUL ---
History of Present Illness Consult date: 03/20/20 Requesting physician: Alexandra Mitchell Reason for consult: dyspnea, abnormal CXR/CT Chief complaint: Shortness of breath, lower extremity edema History of present illness: This is a very pleasant 79-year-old gentleman who follows with Dr. Mitchell as his primary care provider. He has a history of congestive heart failure, biventricular pacemaker placement, atrial fibrillation, hypertension, GERD, h ypothyroidism, former smoker. He presented here to the emergency room with complaints of increasing shortness of breath and increased swelling of the lower extremities. Chest x-ray revealed evidence of cardiomegaly with small pleural effusions consistent with minimal heart failure. Echocardiogram reveals impaired left ventricular systolic function with ejection fraction 35-40%. White count 6.7. Hemoglobin 10.7. Sodium 139. Potassium 3.6. Creatinine 2.12. ProBNP 23,000. Troponin 0.094, 0.098. Influenza screen not detected. D-dimer 1.28. He is seen today in consultation on the selective care unit. He is awake and alert in no acute distress. No worsening shortness of breath, coug h or congestion. No hemoptysis. He is diuresing well. Continued on Lasix 40 mg IV every 12 hours. Breathing easier today compared to yesterday. Maintaining O2 saturations up to 100% on room air. He's afebrile. Hemodynamically stable. Review of Systems REVIEW OF SYSTEMS: CONSTITUTIONAL: Denies any recent significant weight loss or weight gain. EYES: Denies change in vision. EARS, NOSE, MOUTH, THROAT: Denies headaches, denies sore throat. CARDIOVASCULAR: Denies chest pain, palpitations or syncopal episodes. RESPIRATORY: Positive for shortness of breath, cough, congestion no hemoptysis. GASTROINTESTINAL: Denies change in appetite, denies abdominal pain GENITOURINARY: Denies hematuria, denies infections. MUSKULOSKELETAL: Sedated for swelling of the lower extremities. INTEGUMENTARY: Denies rash, denies eczema. NEUROLOGICAL: Denies recent memory loss, no recent seizure activity. PSYCHIATRIC: Denies anxiety, denies depression. HEMATOLOGIC/LYMPHATIC: Denies anemia, denies enlarged lymph nodes. Past Medical History Past Medical History: Atrial Fibrillation, Cancer, Heart Failure, COPD, GERD/Reflux, GI Bleed, Hyperlipidemia, Hypertension, Osteoarthritis (OA), Pneumonia, Renal Disease, Thyroid Disorder Additional Past Medical History / Comment(s): Ischemic cardiomyopathy, nonsustained vtach, aortic stenosis, murmur, pleural effusions, pneumonia with sepsis, gastric ulcer/lower GI bleed, hiatal hernia, CKD stage III, skin cancer with removals. History of Any Multi-Drug Resistant Organisms: VRE Date of last positivie culture/infection: 02/24/15 MDRO Source:: Right leg wound Past Surgical History: Adenoidectomy, Orthopedic Surgery, Pacemaker, Tonsillectomy Additional Past Surgical History / Comment(s): 09/28/19 pacemaker, carpal tunnel release-pt cannot recall laterality, hemorrhoidectomy, EGD, skin cancer removals. Past Anesthesia/Blood Transfusion Reactions: No Reported Reaction Additional Past Anesthesia/Blood Transfusion Reaction / Comment(s): Pt has received blood in past without reaction. Type of Cardiac Device: Permanent Pacemaker Device Placement Date:: 09/28/19 Smoking Status: Former smoker - Past Family History Mother Family Medical History: No Reported History Additional Family Medical History / Comment(s): Mother was healthy and lived to be 97yrs old. Daughter(s) History Unknown: Yes Family Medical History: Cancer Additional Family Medical History / Comment(s): uterine/lung/brain CA - current terminal Father History Unknown: Yes Family Medical History: Cancer Additional Family Medical History / Comment(s): prostate CA - from Medications and Allergies Home Medications Medication Instructions Recorded Confirmed Type Multivitamin [Men's Multi-Vitamin] 1 tab PO HS 12/13/14 03/18/20 History Levothyroxine Sodium [Synthroid] 88 mcg PO HS 08/30/19 03/18/20 History Ferrous Sulfate [Iron (65 MG 325 mg PO HS 09/09/19 03/18/20 History Elemental)] carvediloL [Coreg*] 12.5 mg PO BID #180 tablet 09/28/19 03/18/20 Rx Losartan [Cozaar] 25 mg PO HS tab 10/02/19 03/18/20 Rx Pravastatin Sodium [Pravachol] 20 mg PO HS tab 10/02/19 03/18/20 Rx hydrALAZINE HCL [Apresoline] 25 mg PO TID tab 10/02/19 03/18/20 Rx Albuterol Inhaler [Ventolin Hfa 2 puff INHALATION RT-Q4H PRN 03/18/20 03/18/20 History Inhaler] Docusate [Colace] 100 mg PO HS 03/18/20 03/18/20 History Furosemide [Lasix] 40 mg PO HS 03/18/20 03/18/20 History Isosorbide Mononitrate ER [Imdur] 30 mg PO HS 03/18/20 03/18/20 History Allergies Allergy/AdvReac Type Severity Reaction Status Date / Time Sulfa (Sulfonamide Allergy Rash/Hives Verified 03/18/20 23:42 Antibiotics) Physical Exam Vitals: Vital Signs Temp Pulse Pulse Resp BP BP Pulse Ox 03/20/20 16:30 97.6 F 64 19 127/60 96 03/20/20 12:02 65 18 129/59 100 03/20/20 08:15 97.9 F 62 19 118/44 96 03/20/20 04:00 98.5 F 88 18 152/69 94 L 03/20/20 00:00 97.7 F 68 20 163/72 96 03/19/20 20:00 97.6 F 82 18 197/80 95 03/19/20 18:30 98.6 F 71 20 166/70 100 03/19/20 17:57 98.0 F 68 16 157/66 100 Intake and Output 03/20/20 03/20/20 03/20/20 06:59 14:59 22:59 Intake Total 1140 Output Total 350 400 Balance -350 1140 -400 Intake: Oral 1140 Output: Urine 350 400 Other: # Voids 1 Weight 83.3 kg 83.3 kg GENERAL EXAM: Alert, very pleasant 79-year-old gentleman, on room air, comfortable in no apparent distress. HEAD: Normocephalic. EYES: Normal reaction of pupils, equal size. NOSE: Clear with pink turbinates. THROAT: No erythema or exudates. NECK: No masses, no JVD. CHEST: No chest wall deformity. LUNGS: Equal air entry with faint crackles in the posterior bases. CVS: S1 and S2 normal with an audible murmur, regular rhythm. ABDOMEN: No hepatosplenomegaly, normal bowel sounds, no guarding or rigidity. SPINE: No scoliosis or deformity SKIN: No rashes CENTRAL NERVOUS SYSTEM: No focal deficits, tone is normal in all 4 extremities. EXTREMITIES: There is no peripheral edema. No clubbing, no cyanosis. Peripheral pulses are intact. Results - Laboratory Findings CBC and BMP: 03/20/20 08:25 03/20/20 08:25 PT/INR, D-dimer PT 10.0 sec (9.0-12.0) 03/19/20 00:24 INR 1.0 (<1.2) 03/19/20 00:24 D-Dimer 1.28 mg/L FEU (<0.60) H 03/19/20 00:24 Abnormal lab findings: Abnormal Labs 03/19/20 03/19/20 03/19/20 00:24 00:24 00:24 RBC 4.21 L Hgb 11.7 L Hct 37.0 L Neutrophils # 8.9 H Lymphocytes # 0.6 L D-Dimer 1.28 H Chloride 108 H BUN 45 H Creatinine 2.06 H Glucose 105 H Troponin I Total Protein 03/19/20 03/19/20 03/20/20 00:24 01:58 08:25 RBC 3.78 L Hgb 10.7 L Hct 33.6 L Neutrophils # Lymphocytes # 0.5 L D-Dimer Chloride BUN Creatinine Glucose Troponin I 0.094 H* 0.098 H* Total Protein 03/20/20 08:25 RBC Hgb Hct Neutrophils # Lymphocytes # D-Dimer Chloride BUN 56 H Creatinine 2.12 H Glucose 146 H Troponin I Total Protein 6.0 L - Diagnostic Findings Chest x-ray: image reviewed Assessment and Plan Assessment: 1 Acute exacerbation of chronic systolic congestive heart failure with an ejection fraction 35-40% 2 Ischemic cardiomyopathy 3 Biventricular pacemaker implantation in September 2019 4 History of atrial fibrillation 5 Hypothyroidism 6 Gastroesophageal reflux disease and 7 Chronic obstructive pulmonary disease 8 Chronic tobacco dependence 9 Hypertension Plan: The patient was seen and evaluated by Dr. Guardado Chest x-ray and labs reviewed Continue with diuretics Home once cleared by cardiology We'll continue to follow and make further recommendations based on his clinical status I, the cosigning physician, performed a history & physical examination of the pa josefina. Lungs sounds with crackles in the bilateral posterior bases. Maintaining good O2 saturations in the 90s on room air. I discussed the assessment and plan of care with my nurse practitioner, Tosha Rodriguez. I attest to the above note as dictated by her. Time with Patient: Greater than 30
[2020-03-20] MEDS: ISOSORBIDE MONONITRATE ER 30 MG TAB.ER.24H PO SCH (21:19)
[2020-03-20] MEDS: LOSARTAN 25 MG TAB PO SCH (21:19)
[2020-03-20] MEDS: FERROUS SULFATE 325 MG TAB PO SCH (21:19)
[2020-03-20] MEDS: DOCUSATE 100 MG CAP PO SCH (21:19)
[2020-03-20] MEDS: PRAVASTATIN SODIUM 20 MG TAB PO SCH (21:19)
[2020-03-20] MEDS: LEVOTHYROXINE 88 MCG TAB PO SCH (21:20)
[2020-03-20] MEDS: ENOXAPARIN 80 MG/0.8 ML SYRINGE SQ SCH (21:20)
[2020-03-20] MEDS: MULTIVITAMINS, THERA 1 EACH TAB PO SCH (21:20)
[2020-03-21] MEDS: FUROSEMIDE 10 MG/ML 4 ML VIAL IV SCH ×2 (00:33→12:10)
[2020-03-21] MEDS: carvediloL 12.5 MG TAB PO SCH ×2 (06:46→18:04)
[2020-03-21] MEDS: hydrALAZINE HCL 25 MG TAB PO SCH ×3 (08:26→20:16)
[2020-03-21] MEDS: NICOTINE 21MG/24HR PATCH TRANSDERM SCH (08:26)
--- NOTE | 2020-03-21 12:33 | P.PN ---
Subjective Progress Note Date: 03/21/20 Sean Lin, is an 79-year-old male who presented to [facility] emergency room with a chief complaint of worsening shortness of breath, and occasional cough, symptoms started 2 days prior to presentation and has been worsening. He was evaluated in the emergency room, vital examination on presentation revealed a temperature of 98 pulse 87 respiration 20 blood pressure 200/74 pulse ox 93% on room air, his white blood count was 10.6 hemoglobin 11.7 d-dimer 1.28 BUN 45 creatinine 2.06 troponin level on presentation was slightly elevated at 0.094 and BNP was elevated at 23,000 EKG revealed ventricular paced rhythm with a heart rate of 82 chest x-ray revealed evidence of pulmonary congestion with cardiomegaly and small bilateral pleural effusion consistent was congestive heart failure. Patient has a prolonged cardiac history, last echocardiogram done in August of this year revealed evidence of cardiomyopathy with ejection fraction between 25- 30%, grade 3 diastolic dysfunction, and moderate aortic stenosis. Patient also has history of cardiac arrhythmia he underwent biventricular pacemaker implant on 09/28/[address] Owusu. He has been doing reasonably well as outpatient until a few days ago. On review of systems patient is complaining of shortness of breath and occa sional cough otherwise he denies any symptoms there is no fever or chills no headache or dizziness no chest pain, no palpitation no nausea or vomiting no abdominal pain no diarrhea no blood in the stools no burning with urination no frequency or urgency and no hematuria On 03/20/2020 patient was seen and examined on the telemetry floor, he is alert and oriented 3 in no distress he is reporting improvement in his shortness of breath he is diuresing well he is maintained on Lasix 40 mg IV every 12 hours otherwise he denies any complaints there is no fever or chills no headache or dizziness no chest pain no cough no nausea or vomiting no abdominal pain no diarrhea no blood in the stools no burning with urination no frequency or urgency no hematuria On 03/21/2020 patient was seen and examined on the telemetry floor he is alert and oriented 3 in no apparent distress, he is complaining of generalized weakness otherwise he denies any complaints there is no fever or chills no headache or dizziness no chest pain no shortness of breath no cough no nausea or vomiting no abdominal pain no diarrhea no blood in the stools no burning with urination no frequency or urgency and no hematuria, kidney function is slightly worsening consultation for nephrology was initiated. Objective - Vital Signs Vital signs: Vital Signs Temp 97.7 F 03/21/20 04:00 Pulse 62 03/21/20 04:00 Resp 20 03/21/20 04:00 BP 144/61 03/21/20 04:00 Pulse Ox 99 03/21/20 04:00 Intake & Output 03/20/20 03/20/20 03/21/20 06:59 18:59 06:59 Intake Total 1380 Output Total 350 525 475 Balance -350 855 -475 Weight 83.3 kg 83.3 kg 83.5 kg Intake: Oral 1380 Output: Urine 350 525 475 Other: Voiding Method Urinal # Voids 1 - Exam In general patient is alert and oriented 3 in no apparent distress HEENT head normocephalic and atraumatic Neck is supple no JVD no goiter no lymphadenopathy Chest exam reveals a few scattered crackles bilaterally no wheezing Cardiac exam reveals regular heart sounds S1 and S2 with 2/6 systolic murmur best heard in the right sternal border Abdomen is soft nontender no organomegaly with normal bowel sounds Extremity exam reveals 2+ edema no cyanosis or clubbing Neurological examination reveals no gross focal deficit - Labs CBC & Chem 7: 03/20/20 08:25 03/20/20 08:25 Labs: Abnormal Lab Results - Last 24 Hours (Table) 03/20/20 03/20/20 Range/Units 08:25 08:25 RBC 3.78 L (4.30-5.90) m/uL Hgb 10.7 L (13.0-17.5) gm/dL Hct 33.6 L (39.0-53.0) % Lymphocytes # 0.5 L (1.0-4.8) k/uL BUN 56 H (9-20) mg/dL Creatinine 2.12 H (0.66-1.25) mg/dL Glucose 146 H (74-99) mg/dL Total Protein 6.0 L (6.3-8.2) g/dL Assessment and Plan Plan: 1. 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 Elevated d-dimer 3. Mild elevation in troponin level 4. Underlying history of valvular heart disease with moderate aortic stenosis 4. Underlying history of cardiac arrhythmia, with heart block, status post biventricular pacemaker implant in September of this year 5. Chronic kidney disease stage III At this time patient will be admitted to telemetry floor Cardiology and pulmonary consultation requested Patient was started on full therapeutic dose of Lovenox 80 mg subcu twice daily Awaiting input from cardiology and pulmonary in regard to elevated d-dimer and elevated troponin levels Patient was started on IV diuresis Will monitor kidney function closely
--- NOTE | 2020-03-21 13:38 | CONS ---
CONSULTATION REASON FOR CONSULT: Renal failure. HISTORY OF PRESENT ILLNESS: The patient is an 79-year-old male who was admitted to the hospital on 03/18/2020 with complaints of shortness of breath and cough. There was no history of fever. The patient was noted to be in CHF and he has been diuresed. Currently maintained on Lasix 40 mg IV q.12 hours. He states that his breathing has improved. Patient has CKD stage 4 with baseline creatinine about 1.9-2 mg/dL as of September of 2019. Previous creatinine has been at 1.8-1.7 as well. Etiology is nephrosclerosis. Patient also has cardiomyopathy which is with ejection fraction 25-30%. Admission creatinine was 2.0, it is currently at 2.1. The patient has had good urine output. His weight has not changed significantly and the urine output for 24 hours was about 1300 mL. PAST MEDICAL HISTORY: CKD stage 4, COPD, gastroesophageal reflux disease, atrial fibrillation, hypertension, history of GI bleed, hiatal hernia, cardiac dysrhythmia, right leg ulcer, CHF, cardiomyopathy, history of VRE in the right leg wound. PAST SURGICAL HISTORY: Adenoidectomy, tonsillectomy, hemorrhoidectomy, tennis elbow, EGD. SOCIAL HISTORY: Patient is a former smoker. No history of drug abuse or alcohol abuse. MEDICATIONS: Medications at home included multivitamin, Synthroid, iron, Coreg, Cozaar, Pravachol, hydralazine, Colace, Lasix, Imdur. ALLERGIES: Include SULFA. REVIEW OF SYSTEMS: As per HPI. Other systems negative. EXAMINATION: Patient is comfortable, awake, not in any acute distress. Blood pressure is 131/89, heart rate 80 per minute, he is afebrile. Examination of the heart S1, S2. Examination of lungs, decreased breath sounds at bases with minimal bilateral crackles heard. Abdomen is soft, nontender. Examination of lower extremities shows trace edema bilaterally. [employer] exam is grossly intact. LABS SHOW: Sodium 139, potassium 3.6, chloride 104, BUN 56, serum creatinine 2.1, hemoglobin 10.7 g/dL. ASSESSMENT: 1. Chronic kidney disease, NKF stage 4. Baseline creatinine 1.8-2 mg/dL. Renal function fairly stable. 2. Congestive heart failure, acute on top of chronic, mainly systolic, currently improved. 3. Cardiomyopathy, ejection fraction 25-30%. 4. Congestive heart failure exacerbation and volume overload, currently improving. 5. Anemia of chronic disease. Hemoglobin 10.7. 6. Mildly elevated troponin, doubt acute coronary event. PLAN: Continue Lasix 40 mg q.12 hours. Repeat labs in a.m. Thank you for this consultation. Will continue to follow the patient with you during his hospitalization. PARESH / YOKO: [id number] /
--- NOTE | 2020-03-21 14:52 | P.PN ---
Subjective Progress Note Date: 03/21/20 Principal diagnosis: Acute exacerbation of chronic systolic congestive heart failure This is a very pleasant 79-year-old gentleman who follows with Dr. Mitchell as his primary care provider. He has a history of congestive heart failure, biventricular pacemaker placement, atrial fibrillation, hypertension, GERD, hypothyroidism, former smoker. He presented here to the emergency room with complaints of increasing shortness of breath and increased swelling of the lower extremities. Chest x-ray revealed evidence of cardiomegaly with small pleural effusions consistent with minimal heart failure. Echocardiogram reveals impaired left ventricular systolic function with ejection fraction 35-40%. White count 6.7. Hemoglobin 10.7. Sodium 139. Potassium 3.6. Creatinine 2.12. ProBNP 23,000. Troponin 0.094, 0.098. Influenza screen not detected. D-dimer 1.28. He is seen today in consultation on the selective care unit. He is awake and alert in no acute distress. No worsening shortness of breath, cough or congestion. No hemoptysis. He is diuresing well. Continued on Lasix 40 mg IV every 12 hours. Breathing easier today compared to yesterday. Maintaining O2 saturations up to 100% on room air. He's afebrile. Hemodynamically stable. Patient was reevaluated today on 03/21/20, remains on room air, patient is doing great, significantly improved with diuretics, denies any cough no wheezing no shortness of breath. O2 saturation on room air is 96%. CBC is relatively normal electrolytes are normal BUN is up to 56 creatinine is 2.12. Last BNP was over 23,000. Remains on Lasix at 40 mg IV push every 12 hours, and I will cut it down to once daily. Objective - Vital Signs Vital signs: Vital Signs Temp 97.6 F 03/21/20 12:10 Pulse 61 03/21/20 12:10 Resp 16 03/21/20 12:10 BP 124/60 03/21/20 12:10 Pulse Ox 96 03/21/20 12:10 Intake & Output 03/20/20 03/21/20 03/21/20 18:59 06:59 18:59 Intake Total 1380 820 Output Total 525 775 350 Balance 855 -775 470 Weight 83.3 kg 83.5 kg Intake: IV 20 Invasive Line 1 20 Oral 1380 800 Output: Urine 525 775 350 Other: # Voids 1 - Exam GENERAL EXAM: Alert, very pleasant 79-year-old gentleman, on room air, comfortable in no apparent distress. HEAD: Normocephalic. EYES: Normal reaction of pupils, equal size. NOSE: Clear with pink turbinates. NECK: No masses, no JVD. CHEST: No chest wall deformity. LUNGS: Equal air entry , clear throughout, no crackles or rhonchi or wheezes. CVS: S1 and S2 normal with an audible murmur, regular rhythm. ABDOMEN: No hepatosplenomegaly, normal bowel sounds, no guarding or rigidity. SPINE: No scoliosis or deformity SKIN: No rashes CENTRAL NERVOUS SYSTEM: Alert and oriented 3 focal deficits. Psychiatric: Normal mood affect and normal mental status examination. EXTREMITIES: No clubbing edema or cyanosis. - Labs CBC & Chem 7: 03/20/20 08:25 03/20/20 08:25 Assessment and Plan Assessment: Impression: Acute exacerbation of chronic systolic congestive heart failure History of ischemic cardiomyopathy History of biventricular pacemaker implantation Chronic tobacco dependence syndrome. GERD without esophagitis. History of COPD presently inactive. History of hypertension. Recommendation: Continue present treatment plan Cut down Lasix to 40 mg daily Consider discharge planning once the patient is cleared for discharge by cardiology. Will follow as needed. Time with Patient: Less than 30
--- NOTE | 2020-03-21 14:56 | P.PN ---
Subjective Progress Note Date: 03/21/20 HISTORY OF PRESENT ILLNESS: He remains on IV Lasix. Fluid balance over the last 24 hours is -285 mL. Creatinine 2.12. Echocardiogram reveals ejection fraction between 35- 40%, [id number] mitral stenosis, mild tricuspid regurgitation, mild to moderate aortic regurgitation, and moderate pulmonary hypertension. Patient remains in Covid isolation. PHYSICAL EXAM: Limited due to Covid isolation VITAL SIGNS: Afebrile, heart rate 61, blood pressure 124/60, pulse ox 96% on room air GENERAL: Well-developed in no acute distress. ASSESSMENT: Acute exacerbation of chronic systolic heart failure, EF 35-40% Elevated troponins, no evidence of acute coronary syndrome Coronary artery disease Hypertension Chronic kidney disease History of pacemaker insertion PLAN: Continue current cardiac medications Continue IV Lasix changed to 40 mg daily Daily weights Accurate I&O Continue Coreg 12.5 mg twice daily, hydralazine 25 mg 3 times daily, Imdur 30 g at bedtime, losartan 25 mg at bedtime Continue pravastatin Nephrology consult appreciated Further recommendations pending patient's course Nurse practitioner note has been reviewed by physician. Signing provider agrees with the documented findings, assessment, and plan of care. Objective - Vital Signs Vital signs: Vital Signs Temp 98.2 F 03/21/20 08:26 Pulse 80 03/21/20 08:26 Resp 16 03/21/20 08:26 BP 131/89 03/21/20 08:26 Pulse Ox 94 L 03/21/20 08:26 Intake & Output 03/20/20 03/21/20 03/21/20 18:59 06:59 18:59 Intake Total 1380 450 Output Total 525 775 200 Balance 855 -775 250 Weight 83.3 kg 83.5 kg Intake: IV 10 Invasive Line 1 10 Oral 1380 440 Output: Urine 525 775 200 Other: # Voids 1 - Labs CBC & Chem 7: 03/20/20 08:25 03/20/20 08:25
[2020-03-21] MEDS: DOCUSATE 100 MG CAP PO SCH (20:16)
[2020-03-21] MEDS: FERROUS SULFATE 325 MG TAB PO SCH (20:16)
[2020-03-21] MEDS: ISOSORBIDE MONONITRATE ER 30 MG TAB.ER.24H PO SCH (20:16)
[2020-03-21] MEDS: PRAVASTATIN SODIUM 20 MG TAB PO SCH (20:17)
[2020-03-21] MEDS: LOSARTAN 25 MG TAB PO SCH (20:17)
[2020-03-21] MEDS: MULTIVITAMINS, THERA 1 EACH TAB PO SCH (20:17)
[2020-03-21] MEDS: LEVOTHYROXINE 88 MCG TAB PO SCH (20:17)
[2020-03-21] MEDS: ENOXAPARIN 80 MG/0.8 ML SYRINGE SQ SCH (20:20)
[2020-03-22 07:30] LABS: Basophils % (A) 0 %; Eosinophils # (A) 0.4 k/uL (0-0.7); Eosinophils % (A) 5 %; HGB 9.9 gm/dL (13.0-17.5); Hypochromasia Moderate; Lymphocytes # (A) 0.5 k/uL (1.0-4.8); Lymphocytes % (A) 7 %; MCH 27.6 pg (25.0-35.0); MCHC 30.8 g/dL (31.0-37.0); MCV 89.5 fL (80.0-100.0); Mean Platelet Volume 8.3; Monocytes # (A) 0.6 k/uL (0-1.0); Monocytes % (A) 8 %; Neutrophils # (A) 5.9 k/uL (1.3-7.7); Neutrophils % (A) 78 %; Platelet Count 231 k/uL (150-450); RBC 3.58 m/uL (4.30-5.90); RDW 15.1 % (11.5-15.5); WBC 7.6 k/uL (3.8-10.6)
[2020-03-22 07:47] LABS: Albumin 3.1 g/dL (3.5-5.0); Calcium 8.6 mg/dL (8.4-10.2); Potassium 4.3 mmol/L (3.5-5.1); Total Bilirubin 0.4 mg/dL (0.2-1.3); Total Protein 5.5 g/dL (6.3-8.2)
[2020-03-22] MEDS: carvediloL 12.5 MG TAB PO SCH ×2 (07:49→17:07)
[2020-03-22] MEDS: NICOTINE 21MG/24HR PATCH TRANSDERM SCH (07:49)
[2020-03-22] MEDS: hydrALAZINE HCL 25 MG TAB PO SCH ×3 (07:49→20:49)
[2020-03-22] MEDS: FUROSEMIDE 10 MG/ML 4 ML VIAL IV SCH (07:50)
--- NOTE | 2020-03-22 10:02 | P.PN ---
Subjective Progress Note Date: 03/22/20 Sean Lin, is an 79-year-old male who presented to [facility] emergency room with a chief complaint of worsening shortness of breath, and occasional cough, symptoms started 2 days prior to presentation and has been worsening. He was evaluated in the emergency room, vital examination on presentation revealed a temperature of 98 pulse 87 respiration 20 blood pressure 200/74 pulse ox 93% on room air, his white blood count was 10.6 hemoglobin 11.7 d-dimer 1.28 BUN 45 creatinine 2.06 troponin level on presentation was slightly elevated at 0.094 and BNP was elevated at 23,000 EKG revealed ventricular paced rhythm with a heart rate of 82 chest x-ray revealed evidence of pulmonary congestion with cardiomegaly and small bilateral pleural effusion consistent was congestive heart failure. Patient has a prolonged cardiac history, last echocardiogram done in August of this year revealed evidence of cardiomyopathy with ejection fraction between 25- 30%, grade 3 diastolic dysfunction, and moderate aortic stenosis. Patient also has history of cardiac arrhythmia he underwent biventricular pacemaker implant on 09/28/[address] Owusu. He has been doing reasonably well as outpatient until a few days ago. On review of systems patient is complaining of shortness of breath and occa sional cough otherwise he denies any symptoms there is no fever or chills no headache or dizziness no chest pain, no palpitation no nausea or vomiting no abdominal pain no diarrhea no blood in the stools no burning with urination no frequency or urgency and no hematuria On 03/20/2020 patient was seen and examined on the telemetry floor, he is alert and oriented 3 in no distress he is reporting improvement in his shortness of breath he is diuresing well he is maintained on Lasix 40 mg IV every 12 hours otherwise he denies any complaints there is no fever or chills no headache or dizziness no chest pain no cough no nausea or vomiting no abdominal pain no diarrhea no blood in the stools no burning with urination no frequency or urgency no hematuria On 03/21/2020 patient was seen and examined on the telemetry floor he is alert and oriented 3 in no apparent distress, he is complaining of generalized weakness otherwise he denies any complaints there is no fever or chills no headache or dizziness no chest pain no shortness of breath no cough no nausea or vomiting no abdominal pain no diarrhea no blood in the stools no burning with urination no frequency or urgency and no hematuria, kidney function is slightly worsening consultation for nephrology was initiated. Objective - Vital Signs Vital signs: Vital Signs Temp 98.2 F 03/22/20 07:46 Pulse 62 03/22/20 07:46 Resp 16 03/22/20 07:46 BP 137/64 03/22/20 07:46 Pulse Ox 98 03/22/20 07:46 Intake & Output 03/21/20 03/22/20 03/22/20 18:59 06:59 18:59 Intake Total 1130 380 Output Total 950 150 400 Balance 180 -150 -20 Weight 83.8 kg Intake: IV 30 20 Invasive Line 1 30 20 Oral 1100 360 Output: Urine 950 150 400 Other: Voiding Method Urinal # Voids 0 - Exam In general patient is alert and oriented 3 in no apparent distress HEENT head normocephalic and atraumatic Neck is supple no JVD no goiter no lymphadenopathy Chest exam reveals a few scattered crackles bilaterally no wheezing Cardiac exam reveals regular heart sounds S1 and S2 with 2/6 systolic murmur best heard in the right sternal border Abdomen is soft nontender no organomegaly with normal bowel sounds Extremity exam reveals 2+ edema no cyanosis or clubbing Neurological examination reveals no gross focal deficit - Labs CBC & Chem 7: 03/22/20 07:17 03/22/20 07:17 Labs: Abnormal Lab Results - Last 24 Hours (Table) 03/22/20 03/22/20 Range/Units 07:17 07:17 RBC 3.58 L (4.30-5.90) m/uL Hgb 9.9 L (13.0-17.5) gm/dL Hct 32.0 L (39.0-53.0) % MCHC 30.8 L (31.0-37.0) g/dL Lymphocytes # 0.5 L (1.0-4.8) k/uL Chloride 108 H (98-107) mmol/L BUN 64 H (9-20) mg/dL Creatinine 1.95 H (0.66-1.25) mg/dL Total Protein 5.5 L (6.3-8.2) g/dL Albumin 3.1 L (3.5-5.0) g/dL Assessment and Plan Plan: 1. 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 Elevated d-dimer 3. Mild elevation in troponin level 4. Underlying history of valvular heart disease with moderate aortic stenosis 4. Underlying history of cardiac arrhythmia, with heart block, status post biventricular pacemaker implant in September of this year 5. Chronic kidney disease stage III, with acute component of renal failure improving creatinine today down to 1.95 At this time patient will be admitted to telemetry floor Cardiology and pulmonary consultation requested Patient was started on full therapeutic dose of Lovenox 80 mg subcu twice daily Awaiting input from cardiology and pulmonary in regard to elevated d-dimer and elevated troponin levels Patient was started on IV diuresis Will monitor kidney function closely Patient still not feeling well possibility of discharge to home was discussed with him, he is still feeling tired and short of breath Possible discharge to home tomorrow
--- NOTE | 2020-03-22 12:13 | P.PN ---
Subjective Progress Note Date: 03/22/20 HISTORY OF PRESENT ILLNESS: He remains on IV Lasix and managed by nephrology. Creatinine 1.95, hemoglobin 9.9. Echocardiogram reveals ejection fraction between 35- 40%, [id number] mitral stenosis, mild tricuspid regurgitation, mild to moderate aortic regurgitation, and moderate pulmonary hypertension. Patient remains in Covid isolation. He did have a run of wide-complex 13 beats and 6 and 8 this morning. Cord will be increased to 18.75 mg twice daily. Potassium is 4.3, magnesium is 2.3. PHYSICAL EXAM: Limited due to Covid isolation VITAL SIGNS: Afebrile, heart rate 63, blood pressure 141/63, pulse ox 97% on room air GENERAL: Well-developed in no acute distress. ASSESSMENT: Acute exacerbation of chronic systolic heart failure, EF 35-40% Elevated troponins, no evidence of acute coronary syndrome Coronary artery disease Hypertension Chronic kidney disease History of pacemaker insertion PLAN: Continue current cardiac medications Continue IV Lasix 40 mg daily Daily weights Accurate I&O Increase Coreg to 18.75 mg twice daily, continue hydralazine 25 mg 3 times daily, Imdur 30 g at bedtime, losartan 25 mg at bedtime Continue pravastatin Nephrology consult appreciated Further recommendations pending patient's course Nurse practitioner note has been reviewed by physician. Signing provider agrees with the documented findings, assessment, and plan of care. Objective - Vital Signs Vital signs: Vital Signs Temp 98.2 F 03/22/20 07:46 Pulse 63 03/22/20 11:42 Resp 18 03/22/20 11:43 BP 141/63 03/22/20 11:42 Pulse Ox 97 03/22/20 11:42 Intake & Output 03/21/20 03/22/20 03/22/20 18:59 06:59 18:59 Intake Total 1130 380 Output Total 950 150 400 Balance 180 -150 -20 Weight 83.8 kg Intake: IV 30 20 Invasive Line 1 30 20 Oral 1100 360 Output: Urine 950 150 400 Other: Voiding Method Urinal Urinal # Voids 0 - Labs CBC & Chem 7: 03/22/20 07:17 03/22/20 07:17 Labs: Abnormal Lab Results - Last 24 Hours (Table) 03/22/20 03/22/20 Range/Units 07:17 07:17 RBC 3.58 L (4.30-5.90) m/uL Hgb 9.9 L (13.0-17.5) gm/dL Hct 32.0 L (39.0-53.0) % MCHC 30.8 L (31.0-37.0) g/dL Lymphocytes # 0.5 L (1.0-4.8) k/uL Chloride 108 H (98-107) mmol/L BUN 64 H (9-20) mg/dL Creatinine 1.95 H (0.66-1.25) mg/dL Total Protein 5.5 L (6.3-8.2) g/dL Albumin 3.1 L (3.5-5.0) g/dL
--- NOTE | 2020-03-22 13:23 | PN ---
PROGRESS NOTE The patient is seen for followup for chronic kidney disease and an element of acute kidney injury. Renal function has improved with creatinine at about 1.9 from 2.1. Previous creatinine was about 2 and as high as 2.585 in September of 2019. The patient denies any significant complaints. He has been voiding. EXAMINATION: Today blood pressure was 141/63, heart rate 63 per minute, he is afebrile. Examination of the heart S1, S2. Examination of the lungs, bilateral breath sounds are heard. Abdomen is soft, nontender. Examination of lower extremities shows 1+ edema bilaterally. [employer] exam grossly intact. LAB: Show sodium of 139, potassium 4.3, chloride 108, CO2 is 26, BUN 64, serum creatinine 1.95, hemoglobin 9.9 g/dL. ASSESSMENT: 1. Chronic kidney disease, NKF stage 4. Baseline creatinine about 1.8-2 mg/dL. Renal function is stable. 2. Congestive heart failure, acute on top of chronic, mainly systolic, currently improved. 3. Cardiomyopathy, ejection fraction 25-30%. 4. Congestive heart failure exacerbation, currently improved. 5. Anemia of chronic disease, hemoglobin 10.7. PLAN: Continue with IV Lasix over the weekend, switch to p.o. diuretics tomorrow and follow up as outpatient for CKD. MMODL / IJN: [id number] /
[2020-03-22] MEDS: guaiFENesin 600 MG TABLET.ER PO SCH ×2 (15:32→21:21)
[2020-03-22] MEDS: ALBUTEROL NEBULIZED 2.5 MG/3 ML INHALATION PRN (15:54)
[2020-03-22] MEDS: PRAVASTATIN SODIUM 20 MG TAB PO SCH (20:49)
[2020-03-22] MEDS: ISOSORBIDE MONONITRATE ER 30 MG TAB.ER.24H PO SCH (20:49)
[2020-03-22] MEDS: LOSARTAN 25 MG TAB PO SCH (20:49)
[2020-03-22] MEDS: LEVOTHYROXINE 88 MCG TAB PO SCH (20:49)
[2020-03-22] MEDS: FERROUS SULFATE 325 MG TAB PO SCH (20:49)
[2020-03-22] MEDS: MULTIVITAMINS, THERA 1 EACH TAB PO SCH (20:49)
[2020-03-22] MEDS: ENOXAPARIN 80 MG/0.8 ML SYRINGE SQ SCH (20:50)
[2020-03-22] MEDS: DOCUSATE 100 MG CAP PO SCH (21:20)
[2020-03-23] MEDS: carvediloL 12.5 MG TAB PO SCH ×2 (05:13→15:27)
[2020-03-23] MEDS: guaiFENesin 600 MG TABLET.ER PO SCH ×2 (08:26→20:10)
[2020-03-23] MEDS: hydrALAZINE HCL 25 MG TAB PO SCH ×3 (08:26→20:11)
[2020-03-23] MEDS: NICOTINE 21MG/24HR PATCH TRANSDERM SCH (08:26)
[2020-03-23] MEDS: FUROSEMIDE 10 MG/ML 4 ML VIAL IV SCH (08:27)
[2020-03-23] MEDS: SPIRONOLACTONE 25 MG TAB PO SCH (11:01)
[2020-03-23] MEDS: DARBEPOETIN ALFA 40 MCG/0.4 ML SYRINGE SQ SCH (12:29)
--- NOTE | 2020-03-23 14:48 | PN ---
PROGRESS NOTE Patient is seen for followup for chronic kidney disease. Patient's renal function is fairly stable. He was admitted with shortness of breath and CHF exacerbation. Currently maintained on IV Lasix and doing well. PHYSICAL EXAMINATION: Today blood pressure 136/61, heart rate 59 per minute he is afebrile. Trace edema noted bilateral lower extremities. Abdomen is soft, nontender. LABS: Show sodium 139, potassium 4.3, chloride 108 BUN 64, creatinine 1.95, hemoglobin 9.9. ASSESSMENT: 1. Chronic kidney disease secondary to nephrosclerosis NKF stage IV renal function fairly stable. 2. Off IV before that baseline creatinine 1.8-2. 3. CHF acute on top of chronic systolic. 4. Cardiomyopathy. 5. Anemia of chronic disease hemoglobin at the 9.9 today. I will give him a dose of Aranesp prior to discharge plan can switch Lasix to p.o. The patient will need to take it back twice a day as he was taking it once a day prior to admission and I will also add a dose of Aranesp prior to discharge. MMODL / IJN: [id number] /
--- NOTE | 2020-03-23 14:57 | P.PN ---
Subjective Progress Note Date: 03/23/20 This is an 79-year-old gentleman who has a history of biventricular pacemaker, persistent atrial fibrillation, hypertension, hypothyroidism, GERD, prior nicotine dependence who presented to the hospital with symptoms of shortness of breath and bilateral lower extremity edema. Echocardiogram with Doppler study revealed a left ventricular systolic function of 35-40%. Blood pressure 158/70 with a heart rate in the 60s, 94% on room air. No lab data today. He continues at this time to be on IV Lasix. Urine output approximately 14-1500 mL. Patient's breathing overall seems to be improving. We will continue current dose of daily IV push Lasix for 24 hours. Repeat a chest x- ray. We will also add Aldactone 25 mg daily to the patient's medication regime. Objective - Vital Signs Vital signs: Vital Signs Temp 98.2 F 03/23/20 11:00 Pulse 66 03/23/20 11:00 Resp 18 03/23/20 11:00 BP 158/70 03/23/20 11:00 Pulse Ox 94 L 03/23/20 11:00 Intake & Output 03/22/20 03/23/20 03/23/20 18:59 06:59 18:59 Intake Total 830 620 Output Total 825 500 125 Balance 5 -500 495 Weight 84.5 kg Intake: IV 20 20 Invasive Line 1 20 20 Oral 810 600 Output: Urine 825 500 125 Other: Voiding Method Urinal Urinal - Exam PHYSICAL EXAMINATION: GENERAL: 79-year-old gentleman in no acute distress at the time of my examination HEENT: Head is atraumatic, normocephalic. Pupils equal, round. Sclera anicteric. Conjunctiva are clear. Mucous membranes of the mouth are moist. Neck is supple. There is no elevated jugular venous pressure.] bruit is heard. HEART EXAMINATION: Heart S1, S2 normal. No murmur or gallop heard. CHEST EXAMINATION: Lungs are clear with diminished air entry to the bases bilaterally. ABDOMEN: Soft, nontender. Bowel sounds are heard. No organomegaly noted. EXTREMITIES: 2+ peripheral pulses with no evidence of peripheral edema and no calf tenderness noted. NEUROLOGIC patient is awake, alert and oriented 3 . . - Labs CBC & Chem 7: 03/22/20 07:17 03/22/20 07:17 Assessment and Plan Plan: Assessment and plan #1 systolic congestive heart failure acute on chronic #2 ischemic cardiomyopathy #3 history of biventricular pacemaker implantation #4 nicotine dependence #5 hypertension #6 GERD #7 COPD #8 chronic kidney disease Plan We will repeat a chest x-ray, continue current dose of IV Lasix, add Aldactone to the medication regime and check the patient's lytes BUN and creatinine. DNP note has been reviewed, I agree with a documented findings and plan of care. Patient was seen and examined.
[2020-03-23 15:33] LABS: Potassium 4.4 mmol/L (3.5-5.1)
--- NOTE | 2020-03-23 17:58 | P.PN ---
Subjective Progress Note Date: 03/23/20 Sean Lin, is an 79-year-old male who presented to [facility] emergency room with a chief complaint of worsening shortness of breath, and occasional cough, symptoms started 2 days prior to presentation and has been worsening. He was evaluated in the emergency room, vital examination on presentation revealed a temperature of 98 pulse 87 respiration 20 blood pressure 200/74 pulse ox 93% on room air, his white blood count was 10.6 hemoglobin 11.7 d-dimer 1.28 BUN 45 creatinine 2.06 troponin level on presentation was slightly elevated at 0.094 and BNP was elevated at 23,000 EKG revealed ventricular paced rhythm with a heart rate of 82 chest x-ray revealed evidence of pulmonary congestion with cardiomegaly and small bilateral pleural effusion consistent was congestive heart failure. Patient has a prolonged cardiac history, last echocardiogram done in August of this year revealed evidence of cardiomyopathy with ejection fraction between 25- 30%, grade 3 diastolic dysfunction, and moderate aortic stenosis. Patient also has history of cardiac arrhythmia he underwent biventricular pacemaker implant on 09/28/[address] Owusu. He has been doing reasonably well as outpatient until a few days ago. On review of systems patient is complaining of shortness of breath and occa sional cough otherwise he denies any symptoms there is no fever or chills no headache or dizziness no chest pain, no palpitation no nausea or vomiting no abdominal pain no diarrhea no blood in the stools no burning with urination no frequency or urgency and no hematuria On 03/20/2020 patient was seen and examined on the telemetry floor, he is alert and oriented 3 in no distress he is reporting improvement in his shortness of breath he is diuresing well he is maintained on Lasix 40 mg IV every 12 hours otherwise he denies any complaints there is no fever or chills no headache or dizziness no chest pain no cough no nausea or vomiting no abdominal pain no diarrhea no blood in the stools no burning with urination no frequency or urgency no hematuria On 03/21/2020 patient was seen and examined on the telemetry floor he is alert and oriented 3 in no apparent distress, he is complaining of generalized weakness otherwise he denies any complaints there is no fever or chills no headache or dizziness no chest pain no shortness of breath no cough no nausea or vomiting no abdominal pain no diarrhea no blood in the stools no burning with urination no frequency or urgency and no hematuria, kidney function is slightly worsening consultation for nephrology was initiated. On 03/22/2020 patient was seen and examined on the telemetry floor he is alert and oriented 3 in no apparent distress, he is complaining of generalized weakness otherwise he denies any complaints there is no fever or chills no headache or dizziness no chest pain no shortness of breath no cough no nausea or vomiting no abdominal pain no diarrhea no blood in the stools no burning with urination no frequency or urgency and no hematuria, kidney function is slightly worsening consultation for nephrology was initiated. patient has evidence of acute congestive heart failure exacerbation and acute on chronic kidney failure he is maintained on IV Lasix and followed by cardiology and nephrology. On 03/23/2020 patient was seen and examined on the medical floor he is alert and oriented 3 in no apparent distress his shortness of breath is improving he has no other symptoms there is no fever or chills no headache or dizziness no chest pain no cough no nausea or vomiting no abdominal pain no diarrhea no blood in the stools no burning with urination no frequency or urgency and no hematuria. He is still on IV Lasix, cardiology and nephrology are following. Objective - Vital Signs Vital signs: Vital Signs Temp 97.6 F 03/23/20 15:00 Pulse 64 03/23/20 15:00 Resp 18 03/23/20 15:00 BP 182/76 03/23/20 15:00 Pulse Ox 99 03/23/20 15:00 Intake & Output 03/22/20 03/23/20 03/23/20 18:59 06:59 18:59 Intake Total 830 630 Output Total 133 347 5090 Balance 5 -500 -1095 Weight 84.5 kg Intake: IV 20 30 Invasive Line 1 20 30 Oral 810 600 Output: Urine 238 762 7205 Other: Voiding Method Urinal Urinal - Exam In general patient is alert and oriented 3 in no apparent distress HEENT head normocephalic and atraumatic Neck is supple no JVD no goiter no lymphadenopathy Chest exam reveals a few scattered crackles bilaterally no wheezing Cardiac exam reveals regular heart sounds S1 and S2 with 2/6 systolic murmur best heard in the right sternal border Abdomen is soft nontender no organomegaly with normal bowel sounds Extremity exam reveals 2+ edema no cyanosis or clubbing Neurological examination reveals no gross focal deficit - Labs CBC & Chem 7: 03/22/20 07:17 03/23/20 15:00 Labs: Abnormal Lab Results - Last 24 Hours (Table) 03/23/20 Range/Units 15:00 BUN 70 H (9-20) mg/dL Creatinine 2.06 H (0.66-1.25) mg/dL Glucose 121 H (74-99) mg/dL Assessment and Plan Plan: 1. 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 Elevated d-dimer 3. Mild elevation in troponin level 4. Underlying history of valvular heart disease with moderate aortic stenosis 4. Underlying history of cardiac arrhythmia, with heart block, status post biventricular pacemaker implant in September of this year 5. Chronic kidney disease stage III, with acute component of renal failure improving creatinine today down to 1.95 At this time patient will be admitted to telemetry floor Cardiology and pulmonary consultation requested Patient was started on full therapeutic dose of Lovenox 80 mg subcu twice daily Awaiting input from cardiology and pulmonary in regard to elevated d-dimer and elevated troponin levels Patient was started on IV diuresis Will monitor kidney function closely Patient still not feeling well possibility of discharge to home was discussed with him, he is still feeling tired and short of breath Possible discharge to home tomorrow
[2020-03-23] MEDS: ENOXAPARIN 80 MG/0.8 ML SYRINGE SQ SCH (20:10)
[2020-03-23] MEDS: DOCUSATE 100 MG CAP PO SCH (20:10)
[2020-03-23] MEDS: FERROUS SULFATE 325 MG TAB PO SCH (20:10)
[2020-03-23] MEDS: MULTIVITAMINS, THERA 1 EACH TAB PO SCH (20:10)
[2020-03-23] MEDS: ISOSORBIDE MONONITRATE ER 30 MG TAB.ER.24H PO SCH (20:10)
[2020-03-23] MEDS: LEVOTHYROXINE 88 MCG TAB PO SCH (20:10)
[2020-03-23] MEDS: LOSARTAN 25 MG TAB PO SCH (20:10)
[2020-03-23] MEDS: PRAVASTATIN SODIUM 20 MG TAB PO SCH (20:10)
[2020-03-24] MEDS: carvediloL 12.5 MG TAB PO SCH ×2 (07:11→16:11)
[2020-03-24] MEDS: ALBUTEROL NEBULIZED 2.5 MG/3 ML INHALATION PRN (08:30)
[2020-03-24] MEDS: FUROSEMIDE 10 MG/ML 4 ML VIAL IV SCH ×2 (08:45→22:16)
[2020-03-24] MEDS: guaiFENesin 600 MG TABLET.ER PO SCH ×2 (08:45→22:15)
[2020-03-24] MEDS: hydrALAZINE HCL 25 MG TAB PO SCH ×3 (08:45→23:19)
[2020-03-24] MEDS: SPIRONOLACTONE 25 MG TAB PO SCH (08:45)
[2020-03-24] MEDS: NICOTINE 21MG/24HR PATCH TRANSDERM SCH (08:45)
[2020-03-24 09:32] LABS: Calcium 8.8 mg/dL (8.4-10.2); Potassium 4.4 mmol/L (3.5-5.1)
--- NOTE | 2020-03-24 10:32 | P.PN ---
Subjective Progress Note Date: 03/24/20 This is an 79-year-old gentleman who has a history of biventricular pacemaker, persistent atrial fibrillation, hypertension, hypothyroidism, GERD, prior nicotine dependence who presented to the hospital with symptoms of shortness of breath and bilateral lower extremity edema. Echocardiogram with Doppler study revealed a left ventricular systolic function of 35-40%. Blood pressure 158/70 with a heart rate in the 60s, 94% on room air. No lab data today. He continues at this time to be on IV Lasix. Urine output approximately 14-1500 mL. Patient's breathing overall seems to be improving. We will continue current dose of daily IV push Lasix for 24 hours. Repeat a chest x- ray. We will also add Aldactone 25 mg daily to the patient's medication regime. 03/24/2020 Patient seen and examined this morning, continues to diurese well, is on Lasix 40 IV daily. Blood pressure 127/60, heart rate in the 70s, 98% on 2 L of oxygen. Sodium 138, potassium 4.4, BUN 68, creatinine 2.0. Overall patient is feeling better, he has ruled out for Covid 19. Objective - Vital Signs Vital signs: Vital Signs Temp 97.8 F 03/24/20 04:00 Pulse 72 03/24/20 08:40 Resp 16 03/24/20 04:00 BP 127/62 03/24/20 04:00 Pulse Ox 98 03/24/20 04:00 Intake & Output 03/23/20 03/24/20 03/24/20 18:59 06:59 18:59 Intake Total 870 600 120 Output Total 1725 325 300 Balance -855 275 -180 Weight 84.6 kg Intake: IV 30 Invasive Line 1 30 Oral 840 600 120 Output: Urine 1725 325 300 Other: Voiding Method Urinal # Bowel Movements 0 - Exam PHYSICAL EXAMINATION: GENERAL: 79-year-old gentleman in no acute distress at the time of my examination HEENT: Head is atraumatic, normocephalic. Pupils equal, round. Sclera anicteric. Conjunctiva are clear. Mucous membranes of the mouth are moist. Neck is supple. There is no elevated jugular venous pressure.] bruit is heard. HEART EXAMINATION: Heart S1, S2 normal. No murmur or gallop heard. CHEST EXAMINATION: Lungs are clear with improvement in air entry to the bases bilaterally. ABDOMEN: Soft, nontender. Bowel sounds are heard. No organomegaly noted. EXTREMITIES: 2+ peripheral pulses with no evidence of peripheral edema and no calf tenderness noted. NEUROLOGIC patient is awake, alert and oriented 3 . . - Labs CBC & Chem 7: 03/22/20 07:17 11 08:20 Labs: Abnormal Lab Results - Last 24 Hours (Table) 03/23/20 03/24/20 Range/Units 15:00 08:20 BUN 70 H 68 H (9-20) mg/dL Creatinine 2.06 H 2.06 H (0.66-1.25) mg/dL Glucose 121 H 108 H (74-99) mg/dL Assessment and Plan Plan: Assessment and plan #1 systolic congestive heart failure acute on chronic #2 ischemic cardiomyopathy #3 history of biventricular pacemaker implantation #4 nicotine dependence #5 hypertension #6 GERD #7 COPD #8 chronic kidney disease Plan We will repeat a chest x-ray, discontinue the IV Lasix and start the patient on oral diuretics today. Plan for discharge home soon. DNP note has been reviewed, I agree with a documented findings and plan of care. Patient was seen and examined.
--- NOTE | 2020-03-24 13:35 | XR ---
EXAMINATION TYPE: XR chest 1V portable DATE OF EXAM: 03/24/2020 HISTORY: Shortness of breath. COMPARISON: 03/18/2020 TECHNIQUE: Single view of the chest is submitted. FINDINGS: Demonstrated are scattered senescent parenchymal change. There is no evidence for focal infiltrate. Pulmonary venous congestion with cardiomegaly. Small effusions noted. Hilar and mediastinal structures are within normal limits. Degenerative changes are seen of the dorsal spine. IMPRESSION: 1. Pulmonary venous congestion with cardiomegaly. Small effusions noted.
--- NOTE | 2020-03-24 14:40 | PN ---
PROGRESS NOTE Patient is seen for followup for CKD. He was admitted to the hospital with CHF exacerbation and is currently maintained on IV Lasix. On examination today patient is comfortable. He is complaining of mild shortness of breath. No other complaints today. PHYSICAL EXAMINATION: Blood pressure was 131/60, heart rate 61 per minute, patient is afebrile. Examination of the heart S1, S2. Examination of the lungs, decreased breath sounds at bases. Abdomen is soft, nontender. Examination of lower extremities shows edema 1+ bilaterally. [employer] exam grossly intact. LABS: Show sodium 138, potassium 4.4, chloride 105, BUN 68, serum creatinine 2.06, hemoglobin 9.9 g/dL. ASSESSMENT: 1. Chronic kidney disease, NKF stage IV, renal function fairly stable. 2. CHF acute on top of chronic, mainly systolic. 3. Cardiomyopathy, ejection fraction 25%-30%. 4. Volume overload, it had improved; however, patient is edema seems to be slightly worse today. PLAN: Increase Lasix to 40 mg IV b.i.d. Repeat labs in a.m. MMODL / IJN: [id number] /
[2020-03-24] MEDS: ISOSORBIDE MONONITRATE ER 30 MG TAB.ER.24H PO SCH (22:14)
[2020-03-24] MEDS: LEVOTHYROXINE 88 MCG TAB PO SCH (22:14)
[2020-03-24] MEDS: PRAVASTATIN SODIUM 20 MG TAB PO SCH (22:14)
[2020-03-24] MEDS: MULTIVITAMINS, THERA 1 EACH TAB PO SCH (22:15)
[2020-03-24] MEDS: DOCUSATE 100 MG CAP PO SCH (22:15)
[2020-03-24] MEDS: FERROUS SULFATE 325 MG TAB PO SCH (22:15)
[2020-03-24] MEDS: LOSARTAN 25 MG TAB PO SCH (22:15)
[2020-03-24] MEDS: ENOXAPARIN 80 MG/0.8 ML SYRINGE SQ SCH (22:20)
[2020-03-25] MEDS: carvediloL 12.5 MG TAB PO SCH ×2 (06:58→17:47)
[2020-03-25] MEDS: SPIRONOLACTONE 25 MG TAB PO SCH (08:56)
[2020-03-25] MEDS: hydrALAZINE HCL 25 MG TAB PO SCH ×3 (08:56→22:23)
[2020-03-25] MEDS: guaiFENesin 600 MG TABLET.ER PO SCH ×2 (08:56→22:22)
[2020-03-25] MEDS: FUROSEMIDE 10 MG/ML 4 ML VIAL IV SCH ×2 (08:57→22:21)
[2020-03-25] MEDS: NICOTINE 21MG/24HR PATCH TRANSDERM SCH (08:57)
[2020-03-25 09:51] LABS: Basophils % (A) 1 %; Eosinophils # (A) 0.3 k/uL (0-0.7); Eosinophils % (A) 5 %; HGB 9.6 gm/dL (13.0-17.5); Hypochromasia Slight; Lymphocytes # (A) 0.6 k/uL (1.0-4.8); Lymphocytes % (A) 9 %; MCH 27.3 pg (25.0-35.0); Mean Platelet Volume 8.2; Monocytes # (A) 0.4 k/uL (0-1.0); Monocytes % (A) 6 %; Neutrophils # (A) 4.9 k/uL (1.3-7.7); Neutrophils % (A) 77 %; Platelet Count 221 k/uL (150-450); RBC 3.52 m/uL (4.30-5.90); WBC 6.3 k/uL (3.8-10.6)
[2020-03-25 10:08] LABS: Calcium 8.6 mg/dL (8.4-10.2); Total Bilirubin 0.4 mg/dL (0.2-1.3)
--- NOTE | 2020-03-25 10:39 | P.PN ---
Subjective Progress Note Date: 03/25/20 This is an 79-year-old gentleman who has a history of biventricular pacemaker, persistent atrial fibrillation, hypertension, hypothyroidism, GERD, prior nicotine dependence who presented to the hospital with symptoms of shortness of breath and bilateral lower extremity edema. Echocardiogram with Doppler study revealed a left ventricular systolic function of 35-40%. Blood pressure 158/70 with a heart rate in the 60s, 94% on room air. No lab data today. He continues at this time to be on IV Lasix. Urine output approximately 14-1500 mL. Patient's breathing overall seems to be improving. We will continue current dose of daily IV push Lasix for 24 hours. Repeat a chest x- ray. We will also add Aldactone 25 mg daily to the patient's medication regime. 03/24/2020 Patient seen and examined this morning, continues to diurese well, is on Lasix 40 IV daily. Blood pressure 127/60, heart rate in the 70s, 98% on 2 L of oxygen. Sodium 138, potassium 4.4, BUN 68, creatinine 2.0. Overall patient is feeling better, he has ruled out for Covid 19. 03/25/2020 Patient was seen and examined this morning, sitting at his bedside. Does state that he feels his breathing is improving. Chest x-ray shows pulmonary venous congestion with cardiomegaly. Small effusions noted. The patient was reinitiated on IV Lasix by nephrology, patient continues to put out good urine, his weight is down 3 kg today. White blood cell count 6.3, hemoglobin 9.6, platelet count 221. Lytes BUN and creatinine are pending. Objective - Vital Signs Vital signs: Vital Signs Temp 97.6 F 03/25/20 08:00 Pulse 62 03/25/20 08:00 Resp 18 03/25/20 08:00 BP 110/52 03/25/20 08:00 Pulse Ox 97 03/25/20 04:00 Intake & Output 03/24/20 03/25/20 03/25/20 18:59 06:59 18:59 Intake Total 790 240 Output Total 900 240 Balance -110 -240 240 Weight 81.5 kg Intake: IV 10 Invasive Line 1 10 Oral 780 240 Output: Urine 900 240 Other: Voiding Method Urinal Urinal # Voids 2 # Bowel Movements 0 - Exam PHYSICAL EXAMINATION: GENERAL: 79-year-old gentleman in no acute distress at the time of my examination HEENT: Head is atraumatic, normocephalic. Pupils equal, round. Sclera anicteric. Conjunctiva are clear. Mucous membranes of the mouth are moist. Neck is supple. There is no elevated jugular venous pressure.] bruit is heard. HEART EXAMINATION: Heart S1, S2 normal. No murmur or gallop heard. CHEST EXAMINATION: Lungs are clear with improvement in air entry to the bases bilaterally. ABDOMEN: Soft, nontender. Bowel sounds are heard. No organomegaly noted. EXTREMITIES: 2+ peripheral pulses with trace to 1+ evidence of peripheral edema and no calf tenderness noted. NEUROLOGIC patient is awake, alert and oriented 3 . . - Labs CBC & Chem 7: 03/25/20 09:14 03/24/20 08:20 Labs: Abnormal Lab Results - Last 24 Hours (Table) 03/25/20 Range/Units 09:14 RBC 3.52 L (4.30-5.90) m/uL Hgb 9.6 L (13.0-17.5) gm/dL Hct 31.0 L (39.0-53.0) % Lymphocytes # 0.6 L (1.0-4.8) k/uL Assessment and Plan Plan: Assessment and plan #1 systolic congestive heart failure acute on chronic #2 ischemic cardiomyopathy #3 history of biventricular pacemaker implantation #4 nicotine dependence #5 hypertension #6 GERD #7 COPD #8 chronic kidney disease Plan Cardiology's perspective, we will defer diuretic management to nephrology. Patient overall is doing better today. We will continue to follow. DNP note has been reviewed, I agree with a documented findings and plan of care. Patient was seen and examined.
[2020-03-25 10:45] LABS: Albumin 3.3 g/dL (3.5-5.0); Total Protein 5.7 g/dL (6.3-8.2)
[2020-03-25 10:49] LABS: Potassium 4.1 mmol/L (3.5-5.1)
--- NOTE | 2020-03-25 12:05 | P.PN ---
Subjective Progress Note Date: 03/25/20 Sean Lin, is an 79-year-old male who presented to [facility] emergency room with a chief complaint of worsening shortness of breath, and occasional cough, symptoms started 2 days prior to presentation and has been worsening. He was evaluated in the emergency room, vital examination on presentation revealed a temperature of 98 pulse 87 respiration 20 blood pressure 200/74 pulse ox 93% on room air, his white blood count was 10.6 hemoglobin 11.7 d-dimer 1.28 BUN 45 creatinine 2.06 troponin level on presentation was slightly elevated at 0.094 and BNP was elevated at 23,000 EKG revealed ventricular paced rhythm with a heart rate of 82 chest x-ray revealed evidence of pulmonary congestion with cardiomegaly and small bilateral pleural effusion consistent was congestive heart failure. Patient has a prolonged cardiac history, last echocardiogram done in August of this year revealed evidence of cardiomyopathy with ejection fraction between 25- 30%, grade 3 diastolic dysfunction, and moderate aortic stenosis. Patient also has history of cardiac arrhythmia he underwent biventricular pacemaker implant on 09/28/[address] Owusu. He has been doing reasonably well as outpatient until a few days ago. On review of systems patient is complaining of shortness of breath and occa sional cough otherwise he denies any symptoms there is no fever or chills no headache or dizziness no chest pain, no palpitation no nausea or vomiting no abdominal pain no diarrhea no blood in the stools no burning with urination no frequency or urgency and no hematuria On 03/20/2020 patient was seen and examined on the telemetry floor, he is alert and oriented 3 in no distress he is reporting improvement in his shortness of breath he is diuresing well he is maintained on Lasix 40 mg IV every 12 hours otherwise he denies any complaints there is no fever or chills no headache or dizziness no chest pain no cough no nausea or vomiting no abdominal pain no diarrhea no blood in the stools no burning with urination no frequency or urgency no hematuria On 03/21/2020 patient was seen and examined on the telemetry floor he is alert and oriented 3 in no apparent distress, he is complaining of generalized weakness otherwise he denies any complaints there is no fever or chills no headache or dizziness no chest pain no shortness of breath no cough no nausea or vomiting no abdominal pain no diarrhea no blood in the stools no burning with urination no frequency or urgency and no hematuria, kidney function is slightly worsening consultation for nephrology was initiated. On 03/22/2020 patient was seen and examined on the telemetry floor he is alert and oriented 3 in no apparent distress, he is complaining of generalized weakness otherwise he denies any complaints there is no fever or chills no headache or dizziness no chest pain no shortness of breath no cough no nausea or vomiting no abdominal pain no diarrhea no blood in the stools no burning with urination no frequency or urgency and no hematuria, kidney function is slightly worsening consultation for nephrology was initiated. patient has evidence of acute congestive heart failure exacerbation and acute on chronic kidney failure he is maintained on IV Lasix and followed by cardiology and nephrology. On 03/23/2020 patient was seen and examined on the medical floor he is alert and oriented 3 in no apparent distress his shortness of breath is improving he has no other symptoms there is no fever or chills no headache or dizziness no chest pain no cough no nausea or vomiting no abdominal pain no diarrhea no blood in the stools no burning with urination no frequency or urgency and no hematuria. He is still on IV Lasix, cardiology and nephrology are following. On 03/25/2020 patient is alert and oriented 3. He reports he still having some shortness breath. Patient remains on IV Lasix per nephrology services. Patient denies any chest pain. Patient denies nausea vomiting or diarrhea. Patient denies any urinary burning or frequency Objective - Vital Signs Vital signs: Vital Signs Temp 97.6 F 03/25/20 08:00 Pulse 62 03/25/20 08:00 Resp 18 03/25/20 08:00 BP 110/52 03/25/20 08:00 Pulse Ox 97 03/25/20 04:00 Intake & Output 03/24/20 03/25/20 03/25/20 18:59 06:59 18:59 Intake Total 790 240 Output Total 900 240 Balance -110 -240 240 Weight 81.5 kg Intake: IV 10 Invasive Line 1 10 Oral 780 240 Output: Urine 900 240 Other: Voiding Method Urinal Urinal # Voids 2 # Bowel Movements 0 - Exam In general patient is alert and oriented 3 in no apparent distress HEENT head normocephalic and atraumatic Neck is supple no JVD no goiter no lymphadenopathy Chest exam reveals a few scattered crackles bilaterally no wheezing Cardiac exam reveals regular heart sounds S1 and S2 with 2/6 systolic murmur best heard in the right sternal border Abdomen is soft nontender no organomegaly with normal bowel sounds Extremity exam reveals 2+ edema no cyanosis or clubbing Neurological examination reveals no gross focal deficit - Labs CBC & Chem 7: 03/25/20 09:14 03/25/20 09:14 Labs: Abnormal Lab Results - Last 24 Hours (Table) 03/25/20 03/25/20 Range/Units 09:14 09:14 RBC 3.52 L (4.30-5.90) m/uL Hgb 9.6 L (13.0-17.5) gm/dL Hct 31.0 L (39.0-53.0) % Lymphocytes # 0.6 L (1.0-4.8) k/uL BUN 75 H (9-20) mg/dL Creatinine 2.26 H (0.66-1.25) mg/dL Glucose 158 H (74-99) mg/dL Total Protein 5.7 L (6.3-8.2) g/dL Albumin 3.3 L (3.5-5.0) g/dL Assessment and Plan Plan: 1. Acute on chronic systolic and diastolic congestive heart failure exacerbation, with ejection fraction of 25-30%. Patient remains on IV Lasix per nephrology 2. Elevated d-dimer. Pulmonary services have evaluated patient patient remains on Lovenox 80 mg once day 3. Mild elevation in troponin level. Per cardiology no evidence of acute coronary syndrome 4. Underlying history of valvular heart disease with moderate aortic stenosis. Per cardiology will continue to monitor on an outpatient basis 4. Underlying history of cardiac arrhythmia, with heart block, status post biventricular pacemaker implant in September of this year 5. Chronic kidney disease stage III. Nephrology services are following. Creatinine 2.26 and bun 75 patient remains on IV Lasix per nephrology At this time patient will be admitted to telemetry floor Cardiology and pulmonary services are following Patient was started on IV diuresis Will monitor kidney function closely Patient still not feeling well possibility of discharge to home was discussed with him, he is still feeling tired and short of breath Possible discharge to home tomorrow
--- NOTE | 2020-03-25 15:41 | PN ---
PROGRESS NOTE Patient is seen for followup for chronic kidney disease and volume overload. He is currently maintained on IV Lasix. Lasix was increased to b.i.d. yesterday. PHYSICAL EXAMINATION: On examination today, patient states he feels about the same. Blood pressure was 110/52, heart rate 62 per minute. He is afebrile. EXAMINATION OF THE HEART: S1 and S2. EXAMINATION OF LUNGS: Bilateral breath sounds are heard. ABDOMEN: Soft, non-tender. Examination of lower extremities shows 1+ bilaterally. AED TRAINER exam is grossly intact. LABS: Labs show sodium 138, potassium 4.1, chloride 105. CO2 is 27, BUN 75, creatinine 2.26, hemoglobin 9.6 g/dL. ASSESSMENT: 1. Chronic kidney disease, NKF stage IV, secondary to nephrosclerosis. Renal function fairly stable. 2. Cardiomyopathy, ejection fraction 25% to 30%. 3. Congestive heart failure, acute on top of chronic, mainly systolic. 4. Volume overload, slowly improving. Lasix was increased back to IV b.i.d. yesterday. Serum creatinine is slightly up at 2.2. I will continue with b.i.d. Lasix until tomorrow, then we can switch to p.o. for possible discharge. Follow up as outpatient for CKD. MMODL / IJN: [id number] /
--- NOTE | 2020-03-25 17:45 | P.PN ---
Subjective Progress Note Date: 03/24/20 Sean Lin, is an 79-year-old male who presented to [facility] emergency room with a chief complaint of worsening shortness of breath, and occasional cough, symptoms started 2 days prior to presentation and has been worsening. He was evaluated in the emergency room, vital examination on presentation revealed a temperature of 98 pulse 87 respiration 20 blood pressure 200/74 pulse ox 93% on room air, his white blood count was 10.6 hemoglobin 11.7 d-dimer 1.28 BUN 45 creatinine 2.06 troponin level on presentation was slightly elevated at 0.094 and BNP was elevated at 23,000 EKG revealed ventricular paced rhythm with a heart rate of 82 chest x-ray revealed evidence of pulmonary congestion with cardiomegaly and small bilateral pleural effusion consistent was congestive heart failure. Patient has a prolonged cardiac history, last echocardiogram done in August of this year revealed evidence of cardiomyopathy with ejection fraction between 25- 30%, grade 3 diastolic dysfunction, and moderate aortic stenosis. Patient also has history of cardiac arrhythmia he underwent biventricular pacemaker implant on 09/28/[address] Owusu. He has been doing reasonably well as outpatient until a few days ago. On review of systems patient is complaining of shortness of breath and occa sional cough otherwise he denies any symptoms there is no fever or chills no headache or dizziness no chest pain, no palpitation no nausea or vomiting no abdominal pain no diarrhea no blood in the stools no burning with urination no frequency or urgency and no hematuria On 03/20/2020 patient was seen and examined on the telemetry floor, he is alert and oriented 3 in no distress he is reporting improvement in his shortness of breath he is diuresing well he is maintained on Lasix 40 mg IV every 12 hours otherwise he denies any complaints there is no fever or chills no headache or dizziness no chest pain no cough no nausea or vomiting no abdominal pain no diarrhea no blood in the stools no burning with urination no frequency or urgency no hematuria On 03/21/2020 patient was seen and examined on the telemetry floor he is alert and oriented 3 in no apparent distress, he is complaining of generalized weakness otherwise he denies any complaints there is no fever or chills no headache or dizziness no chest pain no shortness of breath no cough no nausea or vomiting no abdominal pain no diarrhea no blood in the stools no burning with urination no frequency or urgency and no hematuria, kidney function is slightly worsening consultation for nephrology was initiated. On 03/22/2020 patient was seen and examined on the telemetry floor he is alert and oriented 3 in no apparent distress, he is complaining of generalized weakness otherwise he denies any complaints there is no fever or chills no headache or dizziness no chest pain no shortness of breath no cough no nausea or vomiting no abdominal pain no diarrhea no blood in the stools no burning with urination no frequency or urgency and no hematuria, kidney function is slightly worsening consultation for nephrology was initiated. patient has evidence of acute congestive heart failure exacerbation and acute on chronic kidney failure he is maintained on IV Lasix and followed by cardiology and nephrology. On 03/23/2020 patient was seen and examined on the medical floor he is alert and oriented 3 in no apparent distress his shortness of breath is improving he has no other symptoms there is no fever or chills no headache or dizziness no chest pain no cough no nausea or vomiting no abdominal pain no diarrhea no blood in the stools no burning with urination no frequency or urgency and no hematuria. He is still on IV Lasix, cardiology and nephrology are following. On 03/24/2020 patient was seen and examined on the medical floor he is alert and oriented in no distress, he is still complaining of shortness of breath oth erwise he denies any complaints there is no fever or chills, no headache or dizziness no chest pain no cough no nausea or vomiting no abdominal pain no diarrhea no blood in the stools no burning with urination no frequency or urgency and no hematuria Objective - Vital Signs Vital signs: Vital Signs Temp 97.8 F 03/24/20 11:00 Pulse 63 03/24/20 11:00 Resp 16 03/24/20 11:00 BP 152/57 03/24/20 11:00 Pulse Ox 94 L 03/24/20 11:00 Intake & Output 03/23/20 03/24/20 03/24/20 18:59 06:59 18:59 Intake Total 870 600 120 Output Total 1725 325 500 Balance -855 275 -380 Weight 84.6 kg Intake: IV 30 Invasive Line 1 30 Oral 840 600 120 Output: Urine 1725 325 500 Other: Voiding Method Urinal Urinal # Bowel Movements 0 - Exam In general patient is alert and oriented 3 in no apparent distress HEENT head normocephalic and atraumatic Neck is supple no JVD no goiter no lymphadenopathy Chest exam reveals a few scattered crackles bilaterally no wheezing Cardiac exam reveals regular heart sounds S1 and S2 with 2/6 systolic murmur best heard in the right sternal border Abdomen is soft nontender no organomegaly with normal bowel sounds Extremity exam reveals 2+ edema no cyanosis or clubbing Neurological examination reveals no gross focal deficit - Labs CBC & Chem 7: 03/25/20 09:14 03/25/20 09:14 Labs: Abnormal Lab Results - Last 24 Hours (Table) 03/23/20 03/24/20 Range/Units 15:00 08:20 BUN 70 H 68 H (9-20) mg/dL Creatinine 2.06 H 2.06 H (0.66-1.25) mg/dL Glucose 121 H 108 H (74-99) mg/dL Assessment and Plan Plan: 1. 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 Elevated d-dimer 3. Mild elevation in troponin level 4. Underlying history of valvular heart disease with moderate aortic stenosis 4. Underlying history of cardiac arrhythmia, with heart block, status post biventricular pacemaker implant in September of this year 5. Chronic kidney disease stage III, with acute component of renal failure improving creatinine today down to 1.95 At this time patient will be admitted to telemetry floor Cardiology and pulmonary consultation requested Patient was started on full therapeutic dose of Lovenox 80 mg subcu twice daily Awaiting input from cardiology and pulmonary in regard to elevated d-dimer and elevated troponin levels Patient was started on IV diuresis Will monitor kidney function closely Patient still not feeling well possibility of discharge to home was discussed with him, he is still feeling tired and short of breath Possible discharge to home tomorrow
[2020-03-25] MEDS: DOCUSATE 100 MG CAP PO SCH (22:19)
[2020-03-25] MEDS: ENOXAPARIN 80 MG/0.8 ML SYRINGE SQ SCH (22:20)
[2020-03-25] MEDS: FERROUS SULFATE 325 MG TAB PO SCH (22:20)
[2020-03-25] MEDS: ISOSORBIDE MONONITRATE ER 30 MG TAB.ER.24H PO SCH (22:22)
[2020-03-25] MEDS: LOSARTAN 25 MG TAB PO SCH (22:22)
[2020-03-25] MEDS: LEVOTHYROXINE 88 MCG TAB PO SCH (22:22)
[2020-03-25] MEDS: MULTIVITAMINS, THERA 1 EACH TAB PO SCH (22:23)
[2020-03-25] MEDS: PRAVASTATIN SODIUM 20 MG TAB PO SCH (22:23)
[2020-03-26] MEDS: carvediloL 12.5 MG TAB PO SCH ×2 (06:40→17:04)
[2020-03-26 08:40] LABS: Calcium 8.8 mg/dL (8.4-10.2); Potassium 4.6 mmol/L (3.5-5.1)
[2020-03-26] MEDS: FUROSEMIDE 10 MG/ML 4 ML VIAL IV SCH ×2 (10:17→20:55)
[2020-03-26] MEDS: SPIRONOLACTONE 25 MG TAB PO SCH (10:17)
[2020-03-26] MEDS: guaiFENesin 600 MG TABLET.ER PO SCH ×2 (10:17→20:56)
[2020-03-26] MEDS: hydrALAZINE HCL 25 MG TAB PO SCH ×3 (10:17→20:56)
[2020-03-26] MEDS: NICOTINE 21MG/24HR PATCH TRANSDERM SCH (10:17)
--- NOTE | 2020-03-26 11:53 | PN ---
PROGRESS NOTE Patient is seen for followup for CKD. He is currently maintained on IV Lasix for volume overload and CHF exacerbation. Patient is comfortable. He states his breathing has improved. Blood pressure is 122/57, heart rate 66 per minute, he is afebrile. Examination of the heart S1, S2. Examination of the lungs, bilateral breath sounds are heard. Abdomen is soft, nontender. Examination of the lower extremities shows trace edema bilaterally. LEAVE COORDINATOR exam grossly intact. Chronic skin changes noted in lower extremities. LABS: Show sodium 133, potassium 4.6, chloride 107, CO2 is 25, BUN 80, creatinine 2.2. Hemoglobin was 9.6 yesterday. ASSESSMENT: 1. CKD and NKF stage IV, renal function fairly stable. 2. CHF exacerbation, acute on top of chronic, mainly systolic. 3. Cardiomyopathy, ejection fraction 25%-30%. 4. Volume overload, now improved. PLAN: Patient is stable for discharge from nephrology standpoint. Can switch to p.o. Lasix. Patient was taking 40 mg daily at home. He will need to take 40 mg twice a day upon discharge. MMODL / IJN: [id number] /
--- NOTE | 2020-03-26 12:35 | P.PN ---
Subjective Progress Note Date: 03/26/20 This is an 79-year-old gentleman who has a history of biventricular pacemaker, persistent atrial fibrillation, hypertension, hypothyroidism, GERD, prior nicotine dependence who presented to the hospital with symptoms of shortness of breath and bilateral lower extremity edema. Echocardiogram with Doppler study revealed a left ventricular systolic function of 35-40%. Blood pressure 158/70 with a heart rate in the 60s, 94% on room air. No lab data today. He continues at this time to be on IV Lasix. Urine output approximately 14-1500 mL. Patient's breathing overall seems to be improving. We will continue current dose of daily IV push Lasix for 24 hours. Repeat a chest x- ray. We will also add Aldactone 25 mg daily to the patient's medication regime. 03/24/2020 Patient seen and examined this morning, continues to diurese well, is on Lasix 40 IV daily. Blood pressure 127/60, heart rate in the 70s, 98% on 2 L of oxygen. Sodium 138, potassium 4.4, BUN 68, creatinine 2.0. Overall patient is feeling better, he has ruled out for Covid 19. 03/25/2020 Patient was seen and examined this morning, sitting at his bedside. Does state that he feels his breathing is improving. Chest x-ray shows pulmonary venous congestion with cardiomegaly. Small effusions noted. The patient was reinitiated on IV Lasix by nephrology, patient continues to put out good urine, his weight is down 3 kg today. White blood cell count 6.3, hemoglobin 9.6, platelet count 221. Lytes BUN and creatinine are pending. 03/26/2020 Patient was seen and examined this morning, lying down in bed at the time of my examination. His edema seems to be improving in the lower extremities and overall the patient states his breathing is improving. He just complains today of feeling tired. His weight today is down 1 kg, he continues to be on 40 mg of IV Lasix twice a day. Blood pressure 122/60 with a heart rate in the 60s, 95% on room air. Sodium 139, potassium 4.6, BUN 80, creatinine 2.2. Objective - Vital Signs Vital signs: Vital Signs Temp 97.8 F 03/26/20 09:20 Pulse 66 03/26/20 09:20 Resp 18 03/26/20 09:20 BP 122/57 03/26/20 09:20 Pulse Ox 95 03/26/20 09:20 Intake & Output 03/25/20 03/26/20 03/26/20 18:59 06:59 18:59 Intake Total 720 240 Output Total 500 700 150 Balance 220 -700 90 Weight 81.5 kg 80.3 kg Intake: Oral 720 240 Output: Urine 500 700 150 Other: Voiding Method Urinal # Voids 1 # Bowel Movements 0 - Exam PHYSICAL EXAMINATION: GENERAL: 79-year-old gentleman in no acute distress at the time of my examination HEENT: Head is atraumatic, normocephalic. Pupils equal, round. Sclera anicteri c. Conjunctiva are clear. Mucous membranes of the mouth are moist. Neck is supple. There is no elevated jugular venous pressure.] bruit is heard. HEART EXAMINATION: Heart S1, S2 normal. No murmur or gallop heard. CHEST EXAMINATION: Lungs are clear with improvement in air entry to the bases bi laterally. ABDOMEN: Soft, nontender. Bowel sounds are heard. No organomegaly noted. EXTREMITIES: 2+ peripheral pulses with trace to 1+ evidence of peripheral edema and no calf tenderness noted. NEUROLOGIC patient is awake, alert and oriented 3 . . - Labs CBC & Chem 7: 03/25/20 09:14 03/26/20 07:39 Labs: Abnormal Lab Results - Last 24 Hours (Table) 03/26/20 Range/Units 07:39 BUN 80 H (9-20) mg/dL Creatinine 2.22 H (0.66-1.25) mg/dL Assessment and Plan Plan: Assessment and plan #1 systolic congestive heart failure acute on chronic #2 ischemic cardiomyopathy #3 history of biventricular pacemaker implantation #4 nicotine dependence #5 hypertension #6 GERD #7 COPD #8 chronic kidney disease Plan Cardiology's perspective, we will defer diuretic management to nephrology. Patient overall is doing better today. We will continue to follow. DNP note has been reviewed, I agree with a documented findings and plan of care. Patient was seen and examined.
--- NOTE | 2020-03-26 18:21 | P.PN ---
Subjective Progress Note Date: 03/26/20 Sean Lin, is an 79-year-old male who presented to [facility] emergency room with a chief complaint of worsening shortness of breath, and occasional cough, symptoms started 2 days prior to presentation and has been worsening. He was evaluated in the emergency room, vital examination on presentation revealed a temperature of 98 pulse 87 respiration 20 blood pressure 200/74 pulse ox 93% on room air, his white blood count was 10.6 hemoglobin 11.7 d-dimer 1.28 BUN 45 creatinine 2.06 troponin level on presentation was slightly elevated at 0.094 and BNP was elevated at 23,000 EKG revealed ventricular paced rhythm with a heart rate of 82 chest x-ray revealed evidence of pulmonary congestion with cardiomegaly and small bilateral pleural effusion consistent was congestive heart failure. Patient has a prolonged cardiac history, last echocardiogram done in August of this year revealed evidence of cardiomyopathy with ejection fraction between 25- 30%, grade 3 diastolic dysfunction, and moderate aortic stenosis. Patient also has history of cardiac arrhythmia he underwent biventricular pacemaker implant on 09/28/[address] Owusu. He has been doing reasonably well as outpatient until a few days ago. On review of systems patient is complaining of shortness of breath and occa sional cough otherwise he denies any symptoms there is no fever or chills no headache or dizziness no chest pain, no palpitation no nausea or vomiting no abdominal pain no diarrhea no blood in the stools no burning with urination no frequency or urgency and no hematuria On 03/20/2020 patient was seen and examined on the telemetry floor, he is alert and oriented 3 in no distress he is reporting improvement in his shortness of breath he is diuresing well he is maintained on Lasix 40 mg IV every 12 hours otherwise he denies any complaints there is no fever or chills no headache or dizziness no chest pain no cough no nausea or vomiting no abdominal pain no diarrhea no blood in the stools no burning with urination no frequency or urgency no hematuria On 03/21/2020 patient was seen and examined on the telemetry floor he is alert and oriented 3 in no apparent distress, he is complaining of generalized weakness otherwise he denies any complaints there is no fever or chills no headache or dizziness no chest pain no shortness of breath no cough no nausea or vomiting no abdominal pain no diarrhea no blood in the stools no burning with urination no frequency or urgency and no hematuria, kidney function is slightly worsening consultation for nephrology was initiated. On 03/22/2020 patient was seen and examined on the telemetry floor he is alert and oriented 3 in no apparent distress, he is complaining of generalized weakness otherwise he denies any complaints there is no fever or chills no headache or dizziness no chest pain no shortness of breath no cough no nausea or vomiting no abdominal pain no diarrhea no blood in the stools no burning with urination no frequency or urgency and no hematuria, kidney function is slightly worsening consultation for nephrology was initiated. patient has evidence of acute congestive heart failure exacerbation and acute on chronic kidney failure he is maintained on IV Lasix and followed by cardiology and nephrology. On 03/23/2020 patient was seen and examined on the medical floor he is alert and oriented 3 in no apparent distress his shortness of breath is improving he has no other symptoms there is no fever or chills no headache or dizziness no chest pain no cough no nausea or vomiting no abdominal pain no diarrhea no blood in the stools no burning with urination no frequency or urgency and no hematuria. He is still on IV Lasix, cardiology and nephrology are following. On 03/24/2020 patient was seen and examined on the medical floor he is alert and oriented in no distress, he is still complaining of shortness of breath oth erwise he denies any complaints there is no fever or chills, no headache or dizziness no chest pain no cough no nausea or vomiting no abdominal pain no diarrhea no blood in the stools no burning with urination no frequency or urgency and no hematuria On 03/25/2020 patient is alert and oriented 3. He reports he still having some shortness breath. Patient remains on IV Lasix per nephrology services. Patient denies any chest pain. Patient denies nausea vomiting or diarrhea. Patient denies any urinary burning or frequency On 03/26/2020 patient was seen and examined on the telemetry floor he is alert and oriented 3 he is sitting up at the edge of the bed is still complaining of shortness of breath with any activity otherwise he denies any complaints there is no fever or chills no headache or dizziness no chest pain no cough no nausea or vomiting no abdominal pain no diarrhea no blood in the stools and no urinary symptoms Objective - Vital Signs Vital signs: Vital Signs Temp 97.6 F 03/26/20 16:00 Pulse 65 03/26/20 16:00 Resp 18 03/26/20 16:00 BP 142/48 03/26/20 16:00 Pulse Ox 96 03/26/20 16:00 Intake & Output 03/25/20 03/26/20 03/26/20 18:59 06:59 18:59 Intake Total 720 716 Output Total 500 700 845 Balance 220 -700 -129 Weight 81.5 kg 80.3 kg Intake: Oral 720 716 Output: Urine 500 700 845 Other: Voiding Method Urinal Urinal # Voids 1 # Bowel Movements 0 - Exam In general patient is alert and oriented 3 in no apparent distress HEENT head normocephalic and atraumatic Neck is supple no JVD no goiter no lymphadenopathy Chest exam reveals a few scattered crackles bilaterally no wheezing Cardiac exam reveals regular heart sounds S1 and S2 with 2/6 systolic murmur best heard in the right sternal border Abdomen is soft nontender no organomegaly with normal bowel sounds Extremity exam reveals 2+ edema no cyanosis or clubbing Neurological examination reveals no gross focal deficit - Labs CBC & Chem 7: 03/25/20 09:14 03/26/20 07:39 Labs: Abnormal Lab Results - Last 24 Hours (Table) 03/26/20 Range/Units 07:39 BUN 80 H (9-20) mg/dL Creatinine 2.22 H (0.66-1.25) mg/dL Assessment and Plan Plan: 1. 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 Elevated d-dimer 3. Mild elevation in troponin level 4. Underlying history of valvular heart disease with moderate aortic stenosis 4. Underlying history of cardiac arrhythmia, with heart block, status post biventricular pacemaker implant in September of this year 5. Chronic kidney disease stage III, with acute component of renal failure improving creatinine today down to 1.95 At this time patient will be admitted to telemetry floor Cardiology and pulmonary consultation requested Patient was started on full therapeutic dose of Lovenox 80 mg subcu twice daily Awaiting input from cardiology and pulmonary in regard to elevated d-dimer and elevated troponin levels Patient was started on IV diuresis Will monitor kidney function closely Patient still not feeling well possibility of discharge to home was discussed with him, he is still feeling tired and short of breath Possible discharge to home tomorrow
[2020-03-26] MEDS: DOCUSATE 100 MG CAP PO SCH (20:55)
[2020-03-26] MEDS: FERROUS SULFATE 325 MG TAB PO SCH (20:55)
[2020-03-26] MEDS: ENOXAPARIN 80 MG/0.8 ML SYRINGE SQ SCH (20:55)
[2020-03-26] MEDS: LEVOTHYROXINE 88 MCG TAB PO SCH (20:56)
[2020-03-26] MEDS: ISOSORBIDE MONONITRATE ER 30 MG TAB.ER.24H PO SCH (20:56)
[2020-03-26] MEDS: PRAVASTATIN SODIUM 20 MG TAB PO SCH (20:56)
[2020-03-26] MEDS: MULTIVITAMINS, THERA 1 EACH TAB PO SCH (20:56)
[2020-03-26] MEDS: LOSARTAN 25 MG TAB PO SCH (20:56)
[2020-03-27] MEDS: carvediloL 12.5 MG TAB PO SCH ×2 (06:34→16:59)
[2020-03-27] MEDS: FUROSEMIDE 10 MG/ML 4 ML VIAL IV SCH ×2 (09:36→21:00)
[2020-03-27] MEDS: guaiFENesin 600 MG TABLET.ER PO SCH ×2 (09:36→21:00)
[2020-03-27] MEDS: hydrALAZINE HCL 25 MG TAB PO SCH ×3 (09:36→21:01)
[2020-03-27] MEDS: SPIRONOLACTONE 25 MG TAB PO SCH (09:36)
[2020-03-27] MEDS: NICOTINE 21MG/24HR PATCH TRANSDERM SCH (09:37)
--- NOTE | 2020-03-27 11:51 | P.PN ---
Subjective Progress Note Date: 03/27/20 Sean Lin, is an 79-year-old male who presented to [facility] emergency room with a chief complaint of worsening shortness of breath, and occasional cough, symptoms started 2 days prior to presentation and has been worsening. He was evaluated in the emergency room, vital examination on presentation revealed a temperature of 98 pulse 87 respiration 20 blood pressure 200/74 pulse ox 93% on room air, his white blood count was 10.6 hemoglobin 11.7 d-dimer 1.28 BUN 45 creatinine 2.06 troponin level on presentation was slightly elevated at 0.094 and BNP was elevated at 23,000 EKG revealed ventricular paced rhythm with a heart rate of 82 chest x-ray revealed evidence of pulmonary congestion with cardiomegaly and small bilateral pleural effusion consistent was congestive heart failure. Patient has a prolonged cardiac history, last echocardiogram done in August of this year revealed evidence of cardiomyopathy with ejection fraction between 25- 30%, grade 3 diastolic dysfunction, and moderate aortic stenosis. Patient also has history of cardiac arrhythmia he underwent biventricular pacemaker implant on 09/28/[address] Owusu. He has been doing reasonably well as outpatient until a few days ago. On review of systems patient is complaining of shortness of breath and occa sional cough otherwise he denies any symptoms there is no fever or chills no headache or dizziness no chest pain, no palpitation no nausea or vomiting no abdominal pain no diarrhea no blood in the stools no burning with urination no frequency or urgency and no hematuria On 03/20/2020 patient was seen and examined on the telemetry floor, he is alert and oriented 3 in no distress he is reporting improvement in his shortness of breath he is diuresing well he is maintained on Lasix 40 mg IV every 12 hours otherwise he denies any complaints there is no fever or chills no headache or dizziness no chest pain no cough no nausea or vomiting no abdominal pain no diarrhea no blood in the stools no burning with urination no frequency or urgency no hematuria On 03/21/2020 patient was seen and examined on the telemetry floor he is alert and oriented 3 in no apparent distress, he is complaining of generalized weakness otherwise he denies any complaints there is no fever or chills no headache or dizziness no chest pain no shortness of breath no cough no nausea or vomiting no abdominal pain no diarrhea no blood in the stools no burning with urination no frequency or urgency and no hematuria, kidney function is slightly worsening consultation for nephrology was initiated. On 03/22/2020 patient was seen and examined on the telemetry floor he is alert and oriented 3 in no apparent distress, he is complaining of generalized weakness otherwise he denies any complaints there is no fever or chills no headache or dizziness no chest pain no shortness of breath no cough no nausea or vomiting no abdominal pain no diarrhea no blood in the stools no burning with urination no frequency or urgency and no hematuria, kidney function is slightly worsening consultation for nephrology was initiated. patient has evidence of acute congestive heart failure exacerbation and acute on chronic kidney failure he is maintained on IV Lasix and followed by cardiology and nephrology. On 03/23/2020 patient was seen and examined on the medical floor he is alert and oriented 3 in no apparent distress his shortness of breath is improving he has no other symptoms there is no fever or chills no headache or dizziness no chest pain no cough no nausea or vomiting no abdominal pain no diarrhea no blood in the stools no burning with urination no frequency or urgency and no hematuria. He is still on IV Lasix, cardiology and nephrology are following. On 03/24/2020 patient was seen and examined on the medical floor he is alert and oriented in no distress, he is still complaining of shortness of breath oth erwise he denies any complaints there is no fever or chills, no headache or dizziness no chest pain no cough no nausea or vomiting no abdominal pain no diarrhea no blood in the stools no burning with urination no frequency or urgency and no hematuria On 03/25/2020 patient is alert and oriented 3. He reports he still having some shortness breath. Patient remains on IV Lasix per nephrology services. Patient denies any chest pain. Patient denies nausea vomiting or diarrhea. Patient denies any urinary burning or frequency On 03/26/2020 patient was seen and examined on the telemetry floor he is alert and oriented 3 he is sitting up at the edge of the bed is still complaining of shortness of breath with any activity otherwise he denies any complaints there is no fever or chills no headache or dizziness no chest pain no cough no nausea or vomiting no abdominal pain no diarrhea no blood in the stools and no urinary symptoms On 03/27/2020 patient is alert and oriented 3. Patient is sleepy but wakes follows commands. Patient still having some shortness of breath. Patient remains on IV Lasix per nephrology. Kidney function slightly improved from yesterday. Patient denies any chest pain. Patient denies nausea vomiting or diarrhea. Patient denies any urinary burning or frequency Objective - Vital Signs Vital signs: Vital Signs Temp 97.4 F L 03/27/20 03:49 Pulse 66 03/27/20 03:49 Resp 18 03/27/20 03:49 BP 157/54 03/27/20 03:49 Pulse Ox 95 03/27/20 03:49 Intake & Output 03/26/20 03/27/20 03/27/20 18:59 06:59 18:59 Intake Total 956 480 Output Total 845 500 300 Balance 111 -500 180 Weight 80.1 kg Intake: Oral 956 480 Output: Urine 845 500 300 Other: Voiding Method Urinal Urinal # Voids 1 - Exam In general patient is alert and oriented 3 in no apparent distress HEENT head normocephalic and atraumatic Neck is supple no JVD no goiter no lymphadenopathy Chest exam reveals a few scattered crackles bilaterally no wheezing Cardiac exam reveals regular heart sounds S1 and S2 with 2/6 systolic murmur best heard in the right sternal border Abdomen is soft nontender no organomegaly with normal bowel sounds Extremity exam reveals 2+ edema no cyanosis or clubbing Neurological examination reveals no gross focal deficit - Labs CBC & Chem 7: 03/25/20 09:14 03/26/20 07:39 Assessment and Plan Plan: 1. 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 Elevated d-dimer. Patient evaluated by pulmonary services and cleared 3. Mild elevation in troponin level. An acute coronary event has been ruled out per cardiology 4. Underlying history of valvular heart disease with moderate aortic stenosis 4. Underlying history of cardiac arrhythmia, with heart block, status post biventricular pacemaker implant in September of this year 5. Chronic kidney disease stage III, with acute component of renal failure. Slightly improving At this time patient will be admitted to telemetry floor Cardiology and nephrology services following Patient remains on IV Lasix Continue to monitor kidney function
--- NOTE | 2020-03-27 12:12 | P.PN ---
Subjective Progress Note Date: 03/27/20 This is an 79-year-old gentleman who has a history of biventricular pacemaker, persistent atrial fibrillation, hypertension, hypothyroidism, GERD, prior nicotine dependence who presented to the hospital with symptoms of shortness of breath and bilateral lower extremity edema. Echocardiogram with Doppler study revealed a left ventricular systolic function of 35-40%. Blood pressure 158/70 with a heart rate in the 60s, 94% on room air. No lab data today. He continues at this time to be on IV Lasix. Urine output approximately 14-1500 mL. Patient's breathing overall seems to be improving. We will continue current dose of daily IV push Lasix for 24 hours. Repeat a chest x- ray. We will also add Aldactone 25 mg daily to the patient's medication regime. 03/24/2020 Patient seen and examined this morning, continues to diurese well, is on Lasix 40 IV daily. Blood pressure 127/60, heart rate in the 70s, 98% on 2 L of oxygen. Sodium 138, potassium 4.4, BUN 68, creatinine 2.0. Overall patient is feeling better, he has ruled out for Covid 19. 03/25/2020 Patient was seen and examined this morning, sitting at his bedside. Does state that he feels his breathing is improving. Chest x-ray shows pulmonary venous congestion with cardiomegaly. Small effusions noted. The patient was reinitiated on IV Lasix by nephrology, patient continues to put out good urine, his weight is down 3 kg today. White blood cell count 6.3, hemoglobin 9.6, platelet count 221. Lytes BUN and creatinine are pending. 03/26/2020 Patient was seen and examined this morning, lying down in bed at the time of my examination. His edema seems to be improving in the lower extremities and overall the patient states his breathing is improving. He just complains today of feeling tired. His weight today is down 1 kg, he continues to be on 40 mg of IV Lasix twice a day. Blood pressure 122/60 with a heart rate in the 60s, 95% on room air. Sodium 139, potassium 4.6, BUN 80, creatinine 2.2. 03/27/2020 Patient was seen and examined this morning, edema seems to be improving, patient still feels short of breath. Blood pressure 156/60 with a heart rate in the 60s, 95% on room air. Labs pending. Objective - Vital Signs Vital signs: Vital Signs Temp 97.4 F L 03/27/20 03:49 Pulse 66 03/27/20 03:49 Resp 18 03/27/20 03:49 BP 157/54 03/27/20 03:49 Pulse Ox 95 03/27/20 03:49 Intake & Output 03/26/20 03/27/20 03/27/20 18:59 06:59 18:59 Intake Total 956 480 Output Total 845 500 300 Balance 111 -500 180 Weight 80.1 kg Intake: Oral 956 480 Output: Urine 845 500 300 Other: Voiding Method Urinal Urinal # Voids 1 - Exam PHYSICAL EXAMINATION: GENERAL: 79-year-old gentleman in no acute distress at the time of my examinati on HEENT: Head is atraumatic, normocephalic. Pupils equal, round. Sclera anicteric. Conjunctiva are clear. Mucous membranes of the mouth are moist. Neck is supple. There is no elevated jugular venous pressure.] bruit is heard. HEART EXAMINATION: Heart S1, S2 normal. No murmur or gallop heard. CHEST EXAMINATION: Lungs are clear with improvement in air entry to the bases bilaterally. ABDOMEN: Soft, nontender. Bowel sounds are heard. No organomegaly noted. EXTREMITIES: 2+ peripheral pulses with trace evidence of peripheral edema and no calf tenderness noted. NEUROLOGIC patient is awake, alert and oriented 3 . . - Labs CBC & Chem 7: 03/25/20 09:14 03/26/20 07:39 Assessment and Plan Plan: Assessment and plan #1 systolic congestive heart failure acute on chronic #2 ischemic cardiomyopathy #3 history of biventricular pacemaker implantation #4 nicotine dependence #5 hypertension #6 GERD #7 COPD #8 chronic kidney disease Plan Patient is tolerating the IV Lasix, diuresing well. We will repeat a chest x- ray tomorrow morning, continue current dose of IV Lasix. Continue to monitor daily lytes BUN and creatinine. DNP note has been reviewed, I agree with a documented findings and plan of care. Patient was seen and examined.
[2020-03-27] MEDS: SENNOSIDES-DOCUSATE SODIUM 1 EACH TAB PO SCH (12:23)
--- NOTE | 2020-03-27 12:40 | PN ---
PROGRESS NOTE Patient is seen for followup for chronic kidney disease. He was admitted to the hospital with shortness of breath and is currently being treated for CHF exacerbation. The patient is maintained on IV Lasix 40 mg b.i.d. Overall, he states he is feeling better. This morning he is sleeping and comfortable. Blood pressure is 157/54. Heart rate 64 per minute. He is afebrile. Examination of the heart S1, S2. Examination of the lungs, bilateral breath sounds are heard. Abdomen is soft, nontender. Examination lower extremities shows trace edema bilaterally. [employer] exam grossly intact. LABS: Show sodium 139, potassium 4.6, chloride 107, BUN 80, serum creatinine 2.2. These labs are from 03/26/2020. ASSESSMENT: 1. Chronic kidney disease NKF stage IV renal function at baseline. 2. Congestive heart failure exacerbation, acute on top of chronic, mainly systolic. 3. Cardiomyopathy, ejection fraction 25-30 percent. PLAN: Followup as outpatient post discharge. Switch to p.o. Lasix. The patient will be taking a slightly higher dose than what he had been on previously. He was taking 40 mg daily. He will likely need to take 60 mg b.i.d. initially for 3-4 days and then 40 mg p.o. b.i.d. MMODL / IJN: [id number] /
[2020-03-27 15:07] VITALS: BMI 26.0
[2020-03-27] MEDS: FERROUS SULFATE 325 MG TAB PO SCH (21:00)
[2020-03-27] MEDS: LOSARTAN 25 MG TAB PO SCH (21:00)
[2020-03-27] MEDS: DOCUSATE 100 MG CAP PO SCH (21:00)
[2020-03-27] MEDS: ENOXAPARIN 80 MG/0.8 ML SYRINGE SQ SCH (21:00)
[2020-03-27] MEDS: LEVOTHYROXINE 88 MCG TAB PO SCH (21:00)
[2020-03-27] MEDS: MULTIVITAMINS, THERA 1 EACH TAB PO SCH (21:00)
[2020-03-27] MEDS: PRAVASTATIN SODIUM 20 MG TAB PO SCH (21:00)
[2020-03-27] MEDS: ISOSORBIDE MONONITRATE ER 30 MG TAB.ER.24H PO SCH (21:01)
[2020-03-28] MEDS: carvediloL 12.5 MG TAB PO SCH ×2 (06:32→17:49)
[2020-03-28 08:14] LABS: Basophils # (A) 0.1 k/uL (0-0.2); Basophils % (A) 1 %; Eosinophils # (A) 0.3 k/uL (0-0.7); Eosinophils % (A) 4 %; HCT 29.5 % (39.0-53.0); HGB 9.3 gm/dL (13.0-17.5); Hypochromasia Slight; Lymphocytes # (A) 0.7 k/uL (1.0-4.8); Lymphocytes % (A) 10 %; MCH 27.6 pg (25.0-35.0); MCHC 31.5 g/dL (31.0-37.0); MCV 87.8 fL (80.0-100.0); Mean Platelet Volume 8.2; Monocytes # (A) 0.6 k/uL (0-1.0); Monocytes % (A) 8 %; Neutrophils % (A) 74 %; Platelet Count 232 k/uL (150-450); RBC 3.36 m/uL (4.30-5.90); WBC 6.8 k/uL (3.8-10.6)
[2020-03-28 08:32] LABS: Albumin 3.3 g/dL (3.5-5.0); Calcium 8.7 mg/dL (8.4-10.2); Potassium 4.9 mmol/L (3.5-5.1); Total Bilirubin 0.5 mg/dL (0.2-1.3); Total Protein 5.7 g/dL (6.3-8.2)
[2020-03-28] MEDS: FUROSEMIDE 10 MG/ML 4 ML VIAL IV SCH ×2 (10:27→19:58)
[2020-03-28] MEDS: hydrALAZINE HCL 25 MG TAB PO SCH ×3 (10:28→19:58)
[2020-03-28] MEDS: NICOTINE 21MG/24HR PATCH TRANSDERM SCH (10:28)
[2020-03-28] MEDS: guaiFENesin 600 MG TABLET.ER PO SCH ×2 (10:28→19:58)
[2020-03-28] MEDS: SPIRONOLACTONE 25 MG TAB PO SCH ×2 (10:28→19:58)
[2020-03-28] MEDS: SENNOSIDES-DOCUSATE SODIUM 1 EACH TAB PO SCH (10:28)
--- NOTE | 2020-03-28 10:55 | P.PN ---
Subjective Progress Note Date: 03/28/20 Principal diagnosis: This is a 79-year-old male seen in consultation because of chronic kidney disease 6 stage IV with congestive heart failure. His been diuresed. His echocardiogram shows 35-40% ejection fraction. Currently he is denying any fevers chills but continues to have shortness of breath is on nasal cannula. No dizziness appetite is great No nausea vomiting diarrhea. He is known with ischemic cardiomyopathy, hypertension, COPD, history of biventricular pacemaker Objective - Vital Signs Vital signs: Vital Signs Temp 98.3 F 03/28/20 03:38 Pulse 72 03/28/20 03:38 Resp 18 03/28/20 03:38 BP 135/86 03/28/20 03:38 Pulse Ox 96 03/28/20 03:38 Intake & Output 03/27/20 03/28/20 03/28/20 18:59 06:59 18:59 Intake Total 960 Output Total 700 575 Balance 260 -575 Weight 80.1 kg 89 kg Intake: Oral 960 Output: Urine 700 575 Other: Voiding Method Urinal Urinal # Voids 1 # Bowel Movements 0 On examination he is awake alert but looks tired and slightly short of breath HEENT exam no JVP neck is supple no facial asymmetry Lungs are significant for fine crackle at bases good air entry bilaterally Heart sounds are unremarkable for any murmur rub gallop Abdomen soft slightly obese protuberant Extremity exam was moderate edema Neurologically awake alert oriented - Labs CBC & Chem 7: 03/28/20 07:21 03/28/20 07:21 Labs: Abnormal Lab Results - Last 24 Hours (Table) 03/28/20 03/28/20 Range/Units 07:21 07:21 RBC 3.36 L (4.30-5.90) m/uL Hgb 9.3 L (13.0-17.5) gm/dL Hct 29.5 L (39.0-53.0) % Lymphocytes # 0.7 L (1.0-4.8) k/uL BUN 82 H (9-20) mg/dL Creatinine 2.17 H (0.66-1.25) mg/dL Total Protein 5.7 L (6.3-8.2) g/dL Albumin 3.3 L (3.5-5.0) g/dL Assessment and Plan Assessment: Impression 1. Chronic kidney disease stage 3-4 with G of 4 ranging between 20s to 30, secondary to nephrosclerosis. Baseline creatinine 1.9 as of 09/25/2019 and 1.6 at its best on 08/31/2019. Urinalysis is benign 2. Acute kidney injury secondary to congestive heart failure 3. significant edema and shortness of breath and clinically in CHF. 4. Ischemic cardiomyopathy poor ejection fraction 5. Anemia hemoglobin is 9.3, trending down from 11.7 dated 03/19/2020 Recommendation 1. Increase Aldactone to 25 twice a day, and Maintain diuretic regimen consisting of Lasix 40 IV twice a day 2. Monitor labs urine output blood pressure. 3. Check iron saturation
--- NOTE | 2020-03-28 12:07 | P.PN ---
Subjective Progress Note Date: 03/28/20 This is an 79-year-old gentleman who has a history of biventricular pacemaker, persistent atrial fibrillation, hypertension, hypothyroidism, GERD, prior nicotine dependence who presented to the hospital with symptoms of shortness of breath and bilateral lower extremity edema. Echocardiogram with Doppler study revealed a left ventricular systolic function of 35-40%. Blood pressure 158/70 with a heart rate in the 60s, 94% on room air. No lab data today. He continues at this time to be on IV Lasix. Urine output approximately 14-1500 mL. Patient's breathing overall seems to be improving. We will continue current dose of daily IV push Lasix for 24 hours. Repeat a chest x- ray. We will also add Aldactone 25 mg daily to the patient's medication regime. 03/24/2020 Patient seen and examined this morning, continues to diurese well, is on Lasix 40 IV daily. Blood pressure 127/60, heart rate in the 70s, 98% on 2 L of oxygen. Sodium 138, potassium 4.4, BUN 68, creatinine 2.0. Overall patient is feeling better, he has ruled out for Covid 19. 03/25/2020 Patient was seen and examined this morning, sitting at his bedside. Does state that he feels his breathing is improving. Chest x-ray shows pulmonary venous congestion with cardiomegaly. Small effusions noted. The patient was reinitiated on IV Lasix by nephrology, patient continues to put out good urine, his weight is down 3 kg today. White blood cell count 6.3, hemoglobin 9.6, platelet count 221. Lytes BUN and creatinine are pending. 03/26/2020 Patient was seen and examined this morning, lying down in bed at the time of my examination. His edema seems to be improving in the lower extremities and overall the patient states his breathing is improving. He just complains today of feeling tired. His weight today is down 1 kg, he continues to be on 40 mg of IV Lasix twice a day. Blood pressure 122/60 with a heart rate in the 60s, 95% on room air. Sodium 139, potassium 4.6, BUN 80, creatinine 2.2. 03/27/2020 Patient was seen and examined this morning, edema seems to be improving, patient still feels short of breath. Blood pressure 156/60 with a heart rate in the 60s, 95% on room air. Labs pending. 03/28/2020 Patient was seen and examined this morning, he looks significantly better, states that he still feels somewhat short of breath, his edema is almost completely gone bilaterally. Blood pressure 134/60, heart rate in the 60s, 93% on room air. White blood cell count 6.8, hemoglobin 9.3, platelet count 232. Sodium 138, potassium 4.9, BUN 82, creatinine 2.1. Objective - Vital Signs Vital signs: Vital Signs Temp 97.8 F 03/28/20 08:30 Pulse 72 03/28/20 08:30 Resp 18 03/28/20 08:30 BP 135/53 03/28/20 08:30 Pulse Ox 93 L 03/28/20 08:30 Intake & Output 03/27/20 03/28/20 03/28/20 18:59 06:59 18:59 Intake Total 960 240 Output Total 700 575 Balance 260 -575 240 Weight 80.1 kg 89 kg Intake: Oral 960 240 Output: Urine 700 575 Other: Voiding Method Urinal Urinal # Voids 1 # Bowel Movements 0 - Exam PHYSICAL EXAMINATION: GENERAL: 79-year-old gentleman in no acute distress at the time of my examination HEENT: Head is atraumatic, normocephalic. Pupils equal, round. Sclera anicteric. Conjunctiva are clear. Mucous membranes of the mouth are moist. Neck is supple. There is no elevated jugular venous pressure.] bruit is heard. HEART EXAMINATION: Heart S1, S2 normal. No murmur or gallop heard. CHEST EXAMINATION: Lungs are clear with improvement in air entry to the bases bilaterally. ABDOMEN: Soft, nontender. Bowel sounds are heard. No organomegaly noted. EXTREMITIES: 2+ peripheral pulses with trace evidence of peripheral edema and no calf tenderness noted. NEUROLOGIC patient is awake, alert and oriented 3 . . - Labs CBC & Chem 7: 03/28/20 07:21 03/28/20 07:21 Labs: Abnormal Lab Results - Last 24 Hours (Table) 03/28/20 03/28/20 Range/Units 07:21 07:21 RBC 3.36 L (4.30-5.90) m/uL Hgb 9.3 L (13.0-17.5) gm/dL Hct 29.5 L (39.0-53.0) % Lymphocytes # 0.7 L (1.0-4.8) k/uL BUN 82 H (9-20) mg/dL Creatinine 2.17 H (0.66-1.25) mg/dL Total Protein 5.7 L (6.3-8.2) g/dL Albumin 3.3 L (3.5-5.0) g/dL Assessment and Plan Plan: Assessment and plan #1 systolic congestive heart failure acute on chronic #2 ischemic cardiomyopathy #3 history of biventricular pacemaker implantation #4 nicotine dependence #5 hypertension #6 GERD #7 COPD #8 chronic kidney disease Plan Patient is tolerating the IV Lasix, diuresing well. We will repeat a chest x- ray tomorrow morning, continue current dose of IV Lasix. Continue to monitor daily lytes BUN and creatinine. DNP note has been reviewed, I agree with a documented findings and plan of care. Patient was seen and examined.
--- NOTE | 2020-03-28 13:31 | P.PN ---
Subjective Progress Note Date: 03/28/20 Sean Lin, is an 79-year-old male who presented to [facility] emergency room with a chief complaint of worsening shortness of breath, and occasional cough, symptoms started 2 days prior to presentation and has been worsening. He was evaluated in the emergency room, vital examination on presentation revealed a temperature of 98 pulse 87 respiration 20 blood pressure 200/74 pulse ox 93% on room air, his white blood count was 10.6 hemoglobin 11.7 d-dimer 1.28 BUN 45 creatinine 2.06 troponin level on presentation was slightly elevated at 0.094 and BNP was elevated at 23,000 EKG revealed ventricular paced rhythm with a heart rate of 82 chest x-ray revealed evidence of pulmonary congestion with cardiomegaly and small bilateral pleural effusion consistent was congestive heart failure. Patient has a prolonged cardiac history, last echocardiogram done in August of this year revealed evidence of cardiomyopathy with ejection fraction between 25- 30%, grade 3 diastolic dysfunction, and moderate aortic stenosis. Patient also has history of cardiac arrhythmia he underwent biventricular pacemaker implant on 09/28/[address] Owusu. He has been doing reasonably well as outpatient until a few days ago. On review of systems patient is complaining of shortness of breath and occa sional cough otherwise he denies any symptoms there is no fever or chills no headache or dizziness no chest pain, no palpitation no nausea or vomiting no abdominal pain no diarrhea no blood in the stools no burning with urination no frequency or urgency and no hematuria On 03/20/2020 patient was seen and examined on the telemetry floor, he is alert and oriented 3 in no distress he is reporting improvement in his shortness of breath he is diuresing well he is maintained on Lasix 40 mg IV every 12 hours otherwise he denies any complaints there is no fever or chills no headache or dizziness no chest pain no cough no nausea or vomiting no abdominal pain no diarrhea no blood in the stools no burning with urination no frequency or urgency no hematuria On 03/21/2020 patient was seen and examined on the telemetry floor he is alert and oriented 3 in no apparent distress, he is complaining of generalized weakness otherwise he denies any complaints there is no fever or chills no headache or dizziness no chest pain no shortness of breath no cough no nausea or vomiting no abdominal pain no diarrhea no blood in the stools no burning with urination no frequency or urgency and no hematuria, kidney function is slightly worsening consultation for nephrology was initiated. On 03/22/2020 patient was seen and examined on the telemetry floor he is alert and oriented 3 in no apparent distress, he is complaining of generalized weakness otherwise he denies any complaints there is no fever or chills no headache or dizziness no chest pain no shortness of breath no cough no nausea or vomiting no abdominal pain no diarrhea no blood in the stools no burning with urination no frequency or urgency and no hematuria, kidney function is slightly worsening consultation for nephrology was initiated. patient has evidence of acute congestive heart failure exacerbation and acute on chronic kidney failure he is maintained on IV Lasix and followed by cardiology and nephrology. On 03/23/2020 patient was seen and examined on the medical floor he is alert and oriented 3 in no apparent distress his shortness of breath is improving he has no other symptoms there is no fever or chills no headache or dizziness no chest pain no cough no nausea or vomiting no abdominal pain no diarrhea no blood in the stools no burning with urination no frequency or urgency and no hematuria. He is still on IV Lasix, cardiology and nephrology are following. On 03/24/2020 patient was seen and examined on the medical floor he is alert and oriented in no distress, he is still complaining of shortness of breath oth erwise he denies any complaints there is no fever or chills, no headache or dizziness no chest pain no cough no nausea or vomiting no abdominal pain no diarrhea no blood in the stools no burning with urination no frequency or urgency and no hematuria On 03/25/2020 patient is alert and oriented 3. He reports he still having some shortness breath. Patient remains on IV Lasix per nephrology services. Patient denies any chest pain. Patient denies nausea vomiting or diarrhea. Patient denies any urinary burning or frequency On 03/26/2020 patient was seen and examined on the telemetry floor he is alert and oriented 3 he is sitting up at the edge of the bed is still complaining of shortness of breath with any activity otherwise he denies any complaints there is no fever or chills no headache or dizziness no chest pain no cough no nausea or vomiting no abdominal pain no diarrhea no blood in the stools and no urinary symptoms On 03/27/2020 patient is alert and oriented 3. Patient is sleepy but wakes follows commands. Patient still having some shortness of breath. Patient remains on IV Lasix per nephrology. Kidney function slightly improved from yesterday. Patient denies any chest pain. Patient denies nausea vomiting or diarrhea. Patient denies any urinary burning or frequency. On 03/28/2020 patient was seen and examined on the medical floor, he is alert and oriented 3 in no distress, he reports some improvement in his cough and shortness of breath, otherwise he denies any complaints, there is no chest pain no fever or chills no headache or dizziness no nausea or vomiting no abdominal pain no diarrhea no blood in the stools no burning with urination no frequency or urgency and no hematuria. Objective - Vital Signs Vital signs: Vital Signs Temp 98.3 F 03/28/20 03:38 Pulse 72 03/28/20 03:38 Resp 18 03/28/20 03:38 BP 135/86 03/28/20 03:38 Pulse Ox 96 03/28/20 03:38 Intake & Output 03/27/20 03/28/20 03/28/20 18:59 06:59 18:59 Intake Total 960 Output Total 700 575 Balance 260 -575 Weight 80.1 kg 89 kg Intake: Oral 960 Output: Urine 700 575 Other: Voiding Method Urinal Urinal # Voids 1 # Bowel Movements 0 - Exam In general patient is alert and oriented 3 in no apparent distress HEENT head normocephalic and atraumatic Neck is supple no JVD no goiter no lymphadenopathy Chest exam reveals a few scattered crackles bilaterally no wheezing Cardiac exam reveals regular heart sounds S1 and S2 with 2/6 systolic murmur best heard in the right sternal border Abdomen is soft nontender no organomegaly with normal bowel sounds Extremity exam reveals 2+ edema no cyanosis or clubbing Neurological examination reveals no gross focal deficit - Labs CBC & Chem 7: 03/28/20 07:21 03/28/20 07:21 Labs: Abnormal Lab Results - Last 24 Hours (Table) 03/28/20 Range/Units 07:21 RBC 3.36 L (4.30-5.90) m/uL Hgb 9.3 L (13.0-17.5) gm/dL Hct 29.5 L (39.0-53.0) % Lymphocytes # 0.7 L (1.0-4.8) k/uL Assessment and Plan Plan: 1. 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 Elevated d-dimer. Patient evaluated by pulmonary services and cleared 3. Mild elevation in troponin level. An acute coronary event has been ruled out per cardiology 4. Underlying history of valvular heart disease with moderate aortic stenosis 4. Underlying history of cardiac arrhythmia, with heart block, status post biventricular pacemaker implant in September of this year 5. Chronic kidney disease stage III, with acute component of renal failure. Slightly improving At this time patient will be admitted to telemetry floor Cardiology and nephrology services following Patient remains on IV Lasix Continue to monitor kidney function
[2020-03-28] MEDS: FERROUS SULFATE 325 MG TAB PO SCH (19:58)
[2020-03-28] MEDS: DOCUSATE 100 MG CAP PO SCH (19:58)
[2020-03-28] MEDS: LOSARTAN 25 MG TAB PO SCH (19:58)
[2020-03-28] MEDS: LEVOTHYROXINE 88 MCG TAB PO SCH (19:58)
[2020-03-28] MEDS: PRAVASTATIN SODIUM 20 MG TAB PO SCH (19:58)
[2020-03-28] MEDS: ISOSORBIDE MONONITRATE ER 30 MG TAB.ER.24H PO SCH (19:58)
[2020-03-28] MEDS: ENOXAPARIN 80 MG/0.8 ML SYRINGE SQ SCH (19:59)
[2020-03-28] MEDS: MULTIVITAMINS, THERA 1 EACH TAB PO SCH (20:08)
[2020-03-29] MEDS: carvediloL 12.5 MG TAB PO SCH ×2 (06:41→16:35)
--- NOTE | 2020-03-29 09:41 | P.PN ---
Subjective Progress Note Date: 03/29/20 Principal diagnosis: This is a 79-year-old male seen in consultation because of chronic kidney disease stage IV with congestive heart failure. His been diuresed, currently on Lasix 40 twice a day IV as well as Aldactone 25 twice a day dose was increased yesterday. He feels about the same is able to stand up on his own without oxygen and does not feel short of breath except when he tries to walk. He denies any dizziness Currently he is denying any fevers chills appetite is great Morning he had one loose stool, no abdominal pain no fever no chills. He is known with ischemic cardiomyopathy, hypertension, COPD, history of biventricular pacemaker His echocardiogram shows 35-40% ejection fraction. Objective - Vital Signs Vital signs: Vital Signs Temp 98.6 F 03/29/20 04:00 Pulse 60 03/29/20 04:00 Resp 18 03/29/20 04:00 BP 144/80 03/29/20 04:00 Pulse Ox 98 03/29/20 04:00 Intake & Output 03/28/20 03/29/20 03/29/20 18:59 06:59 18:59 Intake Total 1560 240 Output Total 150 875 Balance 1410 -875 240 Weight 86.8 kg Intake: Oral 1560 240 Output: Urine 150 875 Other: Voiding Method Urinal # Voids 3 On examination awake alert oriented comfortable although ill-looking HEENT exam no JVP neck is supple no facial asymmetry Lungs are clear to auscultation fair air entry bilaterally Heart sounds unremarkable for any murmur rub gallop Abdomen soft nontender Extreme exam was minimal to mild edema Neurologically awake alert oriented able to stand up - Labs CBC & Chem 7: 03/28/20 07:21 03/28/20 07:21 Labs: Abnormal Lab Results - Last 24 Hours (Table) 03/28/20 Range/Units 07:21 Iron 39 L (65-175) ug/dL % Saturation 13.00 L (15.00-50.00) Assessment and Plan Assessment: Impression 1. Chronic kidney disease stage 3-4 with GFR 4 ranging between 20 to 30s, etiology secondary to nephrosclerosis. Baseline creatinine 1.9 as of 09/25/2019 and 1.6 at its best on 08/31/2019. Urinalysis is benign. Creatinine is stable albeit slowly down from 2.2-2.17 as of yesterday labs today are pending 2. Acute kidney injury secondary to congestive heart failure. Improved 3. significant edema and shortness of breath and clinically in CHF. Improved 4. Ischemic cardiomyopathy poor ejection fraction 5. Anemia hemoglobin is 9.3, trending down from 11.7 dated 03/19/2020. 6. Iron deficiency saturation is 30% dated 03/28/2020 Recommendation 1. Maintain the increased dose of Aldactone to 25 twice a day, but we'll change IV Lasix 40 twice a day, to torsemide 60 mg by mouth. 2. Monitor labs urine output blood pressure. 3. IV Ferrlecit 125 mg 1 dose
[2020-03-29] MEDS ORDERED: SODIUM FERRIC GLUCONAT-SUCROSE 125 MG in SODIUM CHLORIDE 0.9% 100 ML IVPB ONE (09:43)
[2020-03-29] MEDS: SENNOSIDES-DOCUSATE SODIUM 1 EACH TAB PO SCH (09:47)
[2020-03-29] MEDS: hydrALAZINE HCL 25 MG TAB PO SCH ×3 (09:47→20:44)
[2020-03-29] MEDS: guaiFENesin 600 MG TABLET.ER PO SCH ×2 (09:47→20:44)
[2020-03-29] MEDS: SPIRONOLACTONE 25 MG TAB PO SCH ×2 (09:47→20:44)
[2020-03-29] MEDS: FUROSEMIDE 10 MG/ML 4 ML VIAL IV SCH (09:48)
[2020-03-29] MEDS: NICOTINE 21MG/24HR PATCH TRANSDERM SCH (09:48)
--- NOTE | 2020-03-29 10:14 | P.PN ---
Subjective Progress Note Date: 03/29/20 Sean Lin, is an 79-year-old male who presented to [facility] emergency room with a chief complaint of worsening shortness of breath, and occasional cough, symptoms started 2 days prior to presentation and has been worsening. He was evaluated in the emergency room, vital examination on presentation revealed a temperature of 98 pulse 87 respiration 20 blood pressure 200/74 pulse ox 93% on room air, his white blood count was 10.6 hemoglobin 11.7 d-dimer 1.28 BUN 45 creatinine 2.06 troponin level on presentation was slightly elevated at 0.094 and BNP was elevated at 23,000 EKG revealed ventricular paced rhythm with a heart rate of 82 chest x-ray revealed evidence of pulmonary congestion with cardiomegaly and small bilateral pleural effusion consistent was congestive heart failure. Patient has a prolonged cardiac history, last echocardiogram done in August of this year revealed evidence of cardiomyopathy with ejection fraction between 25- 30%, grade 3 diastolic dysfunction, and moderate aortic stenosis. Patient also has history of cardiac arrhythmia he underwent biventricular pacemaker implant on 09/28/[address] Owusu. He has been doing reasonably well as outpatient until a few days ago. On review of systems patient is complaining of shortness of breath and occa sional cough otherwise he denies any symptoms there is no fever or chills no headache or dizziness no chest pain, no palpitation no nausea or vomiting no abdominal pain no diarrhea no blood in the stools no burning with urination no frequency or urgency and no hematuria On 03/20/2020 patient was seen and examined on the telemetry floor, he is alert and oriented 3 in no distress he is reporting improvement in his shortness of breath he is diuresing well he is maintained on Lasix 40 mg IV every 12 hours otherwise he denies any complaints there is no fever or chills no headache or dizziness no chest pain no cough no nausea or vomiting no abdominal pain no diarrhea no blood in the stools no burning with urination no frequency or urgency no hematuria On 03/21/2020 patient was seen and examined on the telemetry floor he is alert and oriented 3 in no apparent distress, he is complaining of generalized weakness otherwise he denies any complaints there is no fever or chills no headache or dizziness no chest pain no shortness of breath no cough no nausea or vomiting no abdominal pain no diarrhea no blood in the stools no burning with urination no frequency or urgency and no hematuria, kidney function is slightly worsening consultation for nephrology was initiated. On 03/22/2020 patient was seen and examined on the telemetry floor he is alert and oriented 3 in no apparent distress, he is complaining of generalized weakness otherwise he denies any complaints there is no fever or chills no headache or dizziness no chest pain no shortness of breath no cough no nausea or vomiting no abdominal pain no diarrhea no blood in the stools no burning with urination no frequency or urgency and no hematuria, kidney function is slightly worsening consultation for nephrology was initiated. patient has evidence of acute congestive heart failure exacerbation and acute on chronic kidney failure he is maintained on IV Lasix and followed by cardiology and nephrology. On 03/23/2020 patient was seen and examined on the medical floor he is alert and oriented 3 in no apparent distress his shortness of breath is improving he has no other symptoms there is no fever or chills no headache or dizziness no chest pain no cough no nausea or vomiting no abdominal pain no diarrhea no blood in the stools no burning with urination no frequency or urgency and no hematuria. He is still on IV Lasix, cardiology and nephrology are following. On 03/24/2020 patient was seen and examined on the medical floor he is alert and oriented in no distress, he is still complaining of shortness of breath oth erwise he denies any complaints there is no fever or chills, no headache or dizziness no chest pain no cough no nausea or vomiting no abdominal pain no diarrhea no blood in the stools no burning with urination no frequency or urgency and no hematuria On 03/25/2020 patient is alert and oriented 3. He reports he still having some shortness breath. Patient remains on IV Lasix per nephrology services. Patient denies any chest pain. Patient denies nausea vomiting or diarrhea. Patient denies any urinary burning or frequency On 03/26/2020 patient was seen and examined on the telemetry floor he is alert and oriented 3 he is sitting up at the edge of the bed is still complaining of shortness of breath with any activity otherwise he denies any complaints there is no fever or chills no headache or dizziness no chest pain no cough no nausea or vomiting no abdominal pain no diarrhea no blood in the stools and no urinary symptoms On 03/27/2020 patient is alert and oriented 3. Patient is sleepy but wakes follows commands. Patient still having some shortness of breath. Patient remains on IV Lasix per nephrology. Kidney function slightly improved from yesterday. Patient denies any chest pain. Patient denies nausea vomiting or diarrhea. Patient denies any urinary burning or frequency. On 03/28/2020 patient was seen and examined on the medical floor, he is alert and oriented 3 in no distress, he reports some improvement in his cough and shortness of breath, otherwise he denies any complaints, there is no chest pain no fever or chills no headache or dizziness no nausea or vomiting no abdominal pain no diarrhea no blood in the stools no burning with urination no frequency or urgency and no hematuria. On 03/29/2020 patient is alert and oriented 3. Patient reports minimum improvement with shortness breath still some peripheral edema. Nephrology services has added Demadex along with IV Lasix and increase Aldactone creatinine improving today 2.17 and bun 82 we'll continue to monitor closely. At this time patient denies chest pain. Patient denies nausea vomiting or diarrhea. Patient denies urinary burning or frequency Objective - Vital Signs Vital signs: Vital Signs Temp 98.6 F 03/29/20 04:00 Pulse 60 03/29/20 04:00 Resp 18 03/29/20 04:00 BP 144/80 03/29/20 04:00 Pulse Ox 98 03/29/20 04:00 Intake & Output 03/28/20 03/29/20 03/29/20 18:59 06:59 18:59 Intake Total 1560 240 Output Total 150 875 Balance 1410 -875 240 Weight 86.8 kg Intake: Oral 1560 240 Output: Urine 150 875 Other: Voiding Method Urinal # Voids 3 - Exam In general patient is alert and oriented 3 in no apparent distress HEENT head normocephalic and atraumatic Neck is supple no JVD no goiter no lymphadenopathy Chest exam reveals a few scattered crackles bilaterally no wheezing Cardiac exam reveals regular heart sounds S1 and S2 with 2/6 systolic murmur best heard in the right sternal border Abdomen is soft nontender no organomegaly with normal bowel sounds Extremity exam reveals 2+ edema no cyanosis or clubbing Neurological examination reveals no gross focal deficit - Labs CBC & Chem 7: 03/28/20 07:21 03/28/20 07:21 Labs: Abnormal Lab Results - Last 24 Hours (Table) 03/28/20 Range/Units 07:21 Iron 39 L (65-175) ug/dL % Saturation 13.00 L (15.00-50.00) Assessment and Plan Plan: 1. Acute on chronic systolic and diastolic congestive heart failure exacerbat ion, with ejection fraction of 25-30%. IV Lasix, Demadex added per nephrology 2. Elevated d-dimer. Patient evaluated by pulmonary services and cleared 3. Mild elevation in troponin level. An acute coronary event has been ruled out per cardiology 4. Underlying history of valvular heart disease with moderate aortic stenosis 4. Underlying history of cardiac arrhythmia, with heart block, status post biventricular pacemaker implant in September of this year 5. Chronic kidney disease stage III, with acute component of renal failure. Slightly improving At this time patient will be admitted to telemetry floor Cardiology and nephrology services following Patient remains on IV Lasix Aldactone increased and Demadex added per nephrology Continue to monitor kidney function
--- NOTE | 2020-03-29 11:06 | P.PN ---
Subjective Progress Note Date: 03/29/20 This is an 79-year-old gentleman who has a history of biventricular pacemaker, persistent atrial fibrillation, hypertension, hypothyroidism, GERD, prior nicotine dependence who presented to the hospital with symptoms of shortness of breath and bilateral lower extremity edema. Echocardiogram with Doppler study revealed a left ventricular systolic function of 35-40%. Blood pressure 158/70 with a heart rate in the 60s, 94% on room air. No lab data today. He continues at this time to be on IV Lasix. Urine output approximately 14-1500 mL. Patient's breathing overall seems to be improving. We will continue current dose of daily IV push Lasix for 24 hours. Repeat a chest x- ray. We will also add Aldactone 25 mg daily to the patient's medication regime. 03/24/2020 Patient seen and examined this morning, continues to diurese well, is on Lasix 40 IV daily. Blood pressure 127/60, heart rate in the 70s, 98% on 2 L of oxygen. Sodium 138, potassium 4.4, BUN 68, creatinine 2.0. Overall patient is feeling better, he has ruled out for Covid 19. 03/25/2020 Patient was seen and examined this morning, sitting at his bedside. Does state that he feels his breathing is improving. Chest x-ray shows pulmonary venous congestion with cardiomegaly. Small effusions noted. The patient was reinitiated on IV Lasix by nephrology, patient continues to put out good urine, his weight is down 3 kg today. White blood cell count 6.3, hemoglobin 9.6, platelet count 221. Lytes BUN and creatinine are pending. 03/26/2020 Patient was seen and examined this morning, lying down in bed at the time of my examination. His edema seems to be improving in the lower extremities and overall the patient states his breathing is improving. He just complains today of feeling tired. His weight today is down 1 kg, he continues to be on 40 mg of IV Lasix twice a day. Blood pressure 122/60 with a heart rate in the 60s, 95% on room air. Sodium 139, potassium 4.6, BUN 80, creatinine 2.2. 03/27/2020 Patient was seen and examined this morning, edema seems to be improving, patient still feels short of breath. Blood pressure 156/60 with a heart rate in the 60s, 95% on room air. Labs pending. 03/28/2020 Patient was seen and examined this morning, he looks significantly better, states that he still feels somewhat short of breath, his edema is almost completely gone bilaterally. Blood pressure 134/60, heart rate in the 60s, 93% on room air. White blood cell count 6.8, hemoglobin 9.3, platelet count 232. Sodium 138, potassium 4.9, BUN 82, creatinine 2.1. 03/29/2020 Patient seen and examined this morning, continues to do well. Has mild shortness of breath with activity, otherwise his breathing is improved significantly. Blood pressure 144/80 with a heart rate in the 60s, 98% on 2 L of oxygen. White blood cell count 6.8, hemoglobin 9.3, platelet count 232. Sodium 138, potassium 4.9, BUN 82, creatinine 2.1. Objective - Vital Signs Vital signs: Vital Signs Temp 98.6 F 03/29/20 04:00 Pulse 60 03/29/20 04:00 Resp 18 03/29/20 04:00 BP 144/80 03/29/20 04:00 Pulse Ox 98 03/29/20 04:00 Intake & Output 03/28/20 03/29/20 03/29/20 18:59 06:59 18:59 Intake Total 1560 240 Output Total 150 875 150 Balance 1410 -875 90 Weight 86.8 kg Intake: Oral 1560 240 Output: Urine 150 875 150 Other: Voiding Method Urinal # Voids 3 - Exam PHYSICAL EXAMINATION: GENERAL: 79-year-old gentleman in no acute distress at the time of my examination HEENT: Head is atraumatic, normocephalic. Pupils equal, round. Sclera anicteric. Conjunctiva are clear. Mucous membranes of the mouth are moist. Neck is supple. There is no elevated jugular venous pressure.] bruit is heard. HEART EXAMINATION: Heart S1, S2 normal. No murmur or gallop heard. CHEST EXAMINATION: Lungs are clear with improvement in air entry to the bases bilaterally. ABDOMEN: Soft, nontender. Bowel sounds are heard. No organomegaly noted. EXTREMITIES: 2+ peripheral pulses with trace evidence of peripheral edema and no calf tenderness noted. NEUROLOGIC patient is awake, alert and oriented 3 . . - Labs CBC & Chem 7: 03/28/20 07:21 03/28/20 07:21 Labs: Abnormal Lab Results - Last 24 Hours (Table) 03/28/20 Range/Units 07:21 Iron 39 L (65-175) ug/dL % Saturation 13.00 L (15.00-50.00) Assessment and Plan Plan: Assessment and plan #1 systolic congestive heart failure acute on chronic #2 ischemic cardiomyopathy #3 history of biventricular pacemaker implantation #4 nicotine dependence #5 hypertension #6 GERD #7 COPD #8 chronic kidney disease Plan IV Lasix has been discontinued by nephrology and patient has been initiated on Demadex, he was also ordered to receive iron today. Continue to monitor the patient, plan for possible discharge home in 24 hours if stable. DNP note has been reviewed, I agree with a documented findings and plan of care. Patient was seen and examined.
[2020-03-29 11:40] LABS: Basophils % (A) 0 %; Eosinophils # (A) 0.3 k/uL (0-0.7); Eosinophils % (A) 4 %; HCT 31.2 % (39.0-53.0); Hypochromasia Slight; Lymphocytes # (A) 0.5 k/uL (1.0-4.8); Lymphocytes % (A) 7 %; MCH 27.9 pg (25.0-35.0); MCHC 32.1 g/dL (31.0-37.0); MCV 86.9 fL (80.0-100.0); Mean Platelet Volume 8.7; Monocytes # (A) 0.7 k/uL (0-1.0); Monocytes % (A) 9 %; Neutrophils # (A) 5.8 k/uL (1.3-7.7); Neutrophils % (A) 77 %; Platelet Count 270 k/uL (150-450); RDW 15.1 % (11.5-15.5); WBC 7.6 k/uL (3.8-10.6)
[2020-03-29 11:54] LABS: Albumin 3.7 g/dL (3.5-5.0); Calcium 9.2 mg/dL (8.4-10.2); Potassium 4.5 mmol/L (3.5-5.1); Total Bilirubin 0.4 mg/dL (0.2-1.3); Total Protein 6.3 g/dL (6.3-8.2)
[2020-03-29] MEDS: TORSEMIDE 20 MG TAB PO SCH (12:24)
[2020-03-29] MEDS: ENOXAPARIN 80 MG/0.8 ML SYRINGE SQ SCH (20:43)
[2020-03-29] MEDS: LOSARTAN 25 MG TAB PO SCH (20:44)
[2020-03-29] MEDS: ISOSORBIDE MONONITRATE ER 30 MG TAB.ER.24H PO SCH (20:44)
[2020-03-29] MEDS: FERROUS SULFATE 325 MG TAB PO SCH (20:44)
[2020-03-29] MEDS: LEVOTHYROXINE 88 MCG TAB PO SCH (20:44)
[2020-03-29] MEDS: DOCUSATE 100 MG CAP PO SCH (20:44)
[2020-03-29] MEDS: PRAVASTATIN SODIUM 20 MG TAB PO SCH (20:44)
[2020-03-29] MEDS: MULTIVITAMINS, THERA 1 EACH TAB PO SCH (20:44)
[2020-03-30] MEDS: carvediloL 12.5 MG TAB PO SCH (06:27)
[2020-03-30 08:16] LABS: Basophils # (A) 0.1 k/uL (0-0.2); Basophils % (A) 1 %; Eosinophils # (A) 0.4 k/uL (0-0.7); Eosinophils % (A) 6 %; HCT 29.5 % (39.0-53.0); HGB 9.3 gm/dL (13.0-17.5); Lymphocytes # (A) 0.6 k/uL (1.0-4.8); Lymphocytes % (A) 9 %; MCH 27.4 pg (25.0-35.0); MCHC 31.5 g/dL (31.0-37.0); MCV 87.1 fL (80.0-100.0); Mean Platelet Volume 8.2; Monocytes # (A) 0.6 k/uL (0-1.0); Monocytes % (A) 8 %; Neutrophils # (A) 5.2 k/uL (1.3-7.7); Neutrophils % (A) 73 %; Platelet Count 254 k/uL (150-450); RBC 3.39 m/uL (4.30-5.90); RDW 15.1 % (11.5-15.5); WBC 7.1 k/uL (3.8-10.6)
[2020-03-30 08:36] LABS: Albumin 3.2 g/dL (3.5-5.0); Calcium 8.9 mg/dL (8.4-10.2); Potassium 4.5 mmol/L (3.5-5.1); Total Bilirubin 0.4 mg/dL (0.2-1.3); Total Protein 5.6 g/dL (6.3-8.2)
[2020-03-30] MEDS: TORSEMIDE 20 MG TAB PO SCH (08:41)
[2020-03-30] MEDS: NICOTINE 21MG/24HR PATCH TRANSDERM SCH (08:41)
[2020-03-30] MEDS: hydrALAZINE HCL 25 MG TAB PO SCH (08:41)
[2020-03-30] MEDS: SENNOSIDES-DOCUSATE SODIUM 1 EACH TAB PO SCH (08:41)
[2020-03-30] MEDS: SPIRONOLACTONE 25 MG TAB PO SCH (08:41)
[2020-03-30] MEDS: guaiFENesin 600 MG TABLET.ER PO SCH (08:41)
[2020-03-30 09:07] VITALS: RESP 20
--- NOTE | 2020-03-30 12:23 | PN ---
PROGRESS NOTE Mr. Lin is an 79-year-old male with a known history of known cardiomyopathy who presented with symptoms of progressive dyspnea and a history of biventricular pacing, chronic persistent atrial fibrillation. He continues to be dyspneic although slightly better. He denies any chest pain. He denies any dizziness or palpitation. He had an ejection fraction in the past reported 35%-40%. Hemodynamically, he has been stable. He denies any nausea or vomiting. He continues to be at this time on carvedilol 18.75 mg twice a day, Lovenox subcu, hydralazine 25 mg 3 times a day, isosorbide mononitrate 30 mg daily, losartan 25 mg daily, pravastatin 20 mg daily, spironolactone 25 mg twice a day, and furosemide 80 mg daily. PHYSICAL EXAMINATION: Blood pressure 117/58 with a heart rate in the 60s. LUNGS: With a few crackles at the bases. HEART: S1, S2. No S3 with a systolic murmur. No rub. ABDOMEN: Soft, nontender. EXTREMITIES: +1 edema. He had an echocardiogram done on fifth of this month that showed anteroseptal and apical hypokinesis with mild tricuspid regurgitation. LAB DATA: Revealed BUN and creatinine of 87 and 2.47, slightly improved compared to yesterday, potassium 4.5, hemoglobin of 9.3. IMPRESSION: 1. Worsening congestive heart failure with known history of cardiomyopathy and decreased systolic function. 2. History of biventricular pacing. 3. History of chronic tobacco use. 4. Chronic kidney disease. 5. Hypertension. RECOMMENDATION: Will continue on [QAMARKER.] At this point, continue the rest of his medical regimen. Follow his renal function closely. Increase his level of activity. Depending on his progress, further recommendation will be made. MMODL / IJN: [id number] /
[2020-03-30] MEDS: DARBEPOETIN ALFA 40 MCG/0.4 ML SYRINGE SQ SCH (12:48)
[2020-03-30] MEDS ORDERED: SODIUM FERRIC GLUCONAT-SUCROSE 125 MG in SODIUM CHLORIDE 0.9% 100 ML IVPB ONE (12:49)
[2020-03-30 13:30] VITALS: BP 147/66; PULSE 61; TEMP 98.2
--- NOTE | 2020-03-30 13:49 | P.DS ---
Providers Date of admission: 03/21/20 09:13 Expected date of discharge: 03/30/20 Attending physician: Alexandra Mitchell Consults: 03/19/20 01:26 Consult Physician Routine Consulting Provider: Russel Hernandez Consult Reason/Comments: CHF exacerbation Do you want consulting provider notified?: Yes 03/19/20 09:41 Consult Physician Routine Consulting Provider: Taya Guardado Consult Reason/Comments: elevated D Dimer Do you want consulting provider notified?: Yes 03/20/20 14:44 Consult Physician Routine Consulting Provider: Stef Rojas Consult Reason/Comments: CKD, per Dr. Rush Do you want consulting provider notified?: Yes Primary care physician: Alexandraricci Mitchell [facility] Course: Diagnoses on discharge: 1. Acute on chronic systolic and diastolic congestive heart failure exacerbation, with ejection fraction of 25-30%. IV Lasix, Demadex added per nephrology 2. Elevated d-dimer. Patient evaluated by pulmonary services and cleared 3. Mild elevation in troponin level. An acute coronary event has been ruled out per cardiology 4. Underlying history of valvular heart disease with moderate aortic stenosis 4. Underlying history of cardiac arrhythmia, with heart block, status post biventricular pacemaker implant in September of this year 5. Chronic kidney disease stage III, with acute component of renal failure. Slightly improving Hospital course: Sean Lin, is an 79-year-old male who presented to [facility] emergency room with a chief complaint of worsening shortness of breath, and occasional cough, symptoms started 2 days prior to presentation and has been worsening. He was evaluated in the emergency room, vital examination on presentation revealed a temperature of 98 pulse 87 respiration 20 blood pressure 200/74 pulse ox 93% on room air, his white blood count was 10.6 hemoglobin 11.7 d-dimer 1.28 BUN 45 creatinine 2.06 troponin level on presentation was slightly elevated at 0.094 and BNP was elevated at 23,000 EKG revealed ventricular paced rhythm with a heart rate of 82 chest x-ray revealed evidence of pulmonary congestion with cardiomegaly and small bilateral pleural effusion consistent was congestive heart failure. Patient has a prolonged cardiac history, last echocardiogram done in August of this year revealed evidence of cardiomyopathy with ejection fraction between 25- 30%, grade 3 diastolic dysfunction, and moderate aortic stenosis. Patient also has history of cardiac arrhythmia he underwent biventricular pacemaker implant on 09/28/[address] Owusu. He has been doing reasonably well as outpatient until a few days ago. On review of systems patient is complaining of shortness of breath and occasional cough otherwise he denies any symptoms there is no fever or chills no headache or dizziness no chest pain, no palpitation no nausea or vomiting no abdominal pain no diarrhea no blood in the stools no burning with urination no frequency or urgency and no hematuria On 03/20/2020 patient was seen and examined on the telemetry floor, he is alert and oriented 3 in no distress he is reporting improvement in his shortness of breath he is diuresing well he is maintained on Lasix 40 mg IV every 12 hours otherwise he denies any complaints there is no fever or chills no headache or dizziness no chest pain no cough no nausea or vomiting no abdominal pain no diarrhea no blood in the stools no burning with urination no frequency or urgency no hematuria On 03/21/2020 patient was seen and examined on the telemetry floor he is alert and oriented 3 in no apparent distress, he is complaining of generalized weakness otherwise he denies any complaints there is no fever or chills no headache or dizziness no chest pain no shortness of breath no cough no nausea or vomiting no abdominal pain no diarrhea no blood in the stools no burning with urination no frequency or urgency and no hematuria, kidney function is slightly worsening consultation for nephrology was initiated. On 03/22/2020 patient was seen and examined on the telemetry floor he is alert and oriented 3 in no apparent distress, he is complaining of generalized weakness otherwise he denies any complaints there is no fever or chills no headache or dizziness no chest pain no shortness of breath no cough no nausea or vomiting no abdominal pain no diarrhea no blood in the stools no burning with urination no frequency or urgency and no hematuria, kidney function is slightly worsening consultation for nephrology was initiated. patient has evidence of acute congestive heart failure exacerbation and acute on chronic kidney failure he is maintained on IV Lasix and followed by cardiology and nephrology. On 03/23/2020 patient was seen and examined on the medical floor he is alert and oriented 3 in no apparent distress his shortness of breath is improving he has no other symptoms there is no fever or chills no headache or dizziness no chest pain no cough no nausea or vomiting no abdominal pain no diarrhea no blood in the stools no burning with urination no frequency or urgency and no hematuria. He is still on IV Lasix, cardiology and nephrology are following. On 03/24/2020 patient was seen and examined on the medical floor he is alert and oriented in no distress, he is still complaining of shortness of breath otherwise he denies any complaints there is no fever or chills, no headache or dizziness no chest pain no cough no nausea or vomiting no abdominal pain no diarrhea no blood in the stools no burning with urination no frequency or urgency and no hematuria On 03/25/2020 patient is alert and oriented 3. He reports he still having some shortness breath. Patient remains on IV Lasix per nephrology services. Patient denies any chest pain. Patient denies nausea vomiting or diarrhea. Patient denies any urinary burning or frequency On 03/26/2020 patient was seen and examined on the telemetry floor he is alert and oriented 3 he is sitting up at the edge of the bed is still complaining of shortness of breath with any activity otherwise he denies any complaints there is no fever or chills no headache or dizziness no chest pain no cough no nausea or vomiting no abdominal pain no diarrhea no blood in the stools and no urinary symptoms On 03/27/2020 patient is alert and oriented 3. Patient is sleepy but wakes follows commands. Patient still having some shortness of breath. Patient remains on IV Lasix per nephrology. Kidney function slightly improved from yesterday. Patient denies any chest pain. Patient denies nausea vomiting or d iarrhea. Patient denies any urinary burning or frequency. On 03/28/2020 patient was seen and examined on the medical floor, he is alert and oriented 3 in no distress, he reports some improvement in his cough and shortness of breath, otherwise he denies any complaints, there is no chest pain no fever or chills no headache or dizziness no nausea or vomiting no abdominal pain no diarrhea no blood in the stools no burning with urination no frequency or urgency and no hematuria. On 03/29/2020 patient is alert and oriented 3. Patient reports minimum improvement with shortness breath still some peripheral edema. Nephrology services has added Demadex along with IV Lasix and increase Aldactone creatinine improving today 2.17 and bun 82 we'll continue to monitor closely. At this time patient denies chest pain. Patient denies nausea vomiting or diarrhea. Patient denies urinary burning or frequency On 03/30/2020 patient was seen and examined on the telemetry floor he is alert and oriented 3 in no distress he reports improvement in his shortness of breath otherwise he denies any complaints there is no fever or chills no headache or dizziness no chest pain no no palpitation no nausea or vomiting no abdominal pain no diarrhea no blood in the stools no burning with urination no frequency or urgency and no hematuria. Patient was evaluated by cardiology and was cleared for discharge, he was given a prescription for Demadex, and increased dose of coreg, he was given a prescription for NicoDerm patches and was counseled in length in regard to smoking cessation. He will be followed in our office within 5 days. He will also follow-up with the cardiology office in 1-2 weeks, will also arrange for follow-up with nephrology. Patient Condition at Discharge: Fair Plan - Discharge Summary Discharge Rx Participant: No New Discharge Prescriptions: New Spironolactone [Aldactone] 25 mg PO BID tab carvediloL [Coreg*] 18.75 mg PO BID-W/MEALS tab Torsemide [Demadex] 80 mg PO DAILY tab Nicotine 21Mg/24Hr Patch [Habitrol] 1 patch TRANSDERM DAILY patch Continue Multivitamin [Men's Multi-Vitamin] 1 tab PO HS Levothyroxine Sodium [Synthroid] 88 mcg PO HS Ferrous Sulfate [Iron (65 MG Elemental)] 325 mg PO HS hydrALAZINE HCL [Apresoline] 25 mg PO TID tab Losartan [Cozaar] 25 mg PO HS tab Pravastatin Sodium [Pravachol] 20 mg PO HS tab Docusate [Colace] 100 mg PO HS Albuterol Inhaler [Ventolin Hfa Inhaler] 2 puff INHALATION RT-Q4H PRN PRN Reason: Shortness Of Breath Isosorbide Mononitrate ER [Imdur] 30 mg PO HS Discontinued carvediloL [Coreg*] 12.5 mg PO BID #180 tablet Furosemide [Lasix] 40 mg PO HS Discharge Medication List Multivitamin [Men's Multi-Vitamin] 1 tab PO HS 12/13/14 [History] Levothyroxine Sodium [Synthroid] 88 mcg PO HS 08/30/19 [History] Ferrous Sulfate [Iron (65 MG Elemental)] 325 mg PO HS 09/09/19 [History] Losartan [Cozaar] 25 mg PO HS tab 10/02/19 [Rx] Pravastatin Sodium [Pravachol] 20 mg PO HS tab 10/02/19 [Rx] hydrALAZINE HCL [Apresoline] 25 mg PO TID tab 10/02/19 [Rx] Albuterol Inhaler [Ventolin Hfa Inhaler] 2 puff INHALATION RT-Q4H PRN 03/18/20 [History] Docusate [Colace] 100 mg PO HS 03/18/20 [History] Isosorbide Mononitrate ER [Imdur] 30 mg PO HS 03/18/20 [History] Nicotine 21Mg/24Hr Patch [Habitrol] 1 patch TRANSDERM DAILY patch 03/30/20 [Rx] Spironolactone [Aldactone] 25 mg PO BID tab 03/30/20 [Rx] Torsemide [Demadex] 80 mg PO DAILY tab 03/30/20 [Rx] carvediloL [Coreg*] 18.75 mg PO BID-W/MEALS tab 03/30/20 [Rx] Follow up Appointment(s)/Referral(s): Lavon Owusu MD [STAFF PHYSICIAN] - 04/07/20 9:30 am (MONDAY) Lorin Shearer MD [STAFF PHYSICIAN] - 4 Weeks (OFFICES ARE CLOSED PLEASE CALL TO MAKE A FOLLOW UP APPOINTMENT MONDAY) Alexandra Mitchell MD [Primary Care Provider] - 04/03/20 11:00 am (Follow up on Monday at 11am per Stephen. ) Patient Instructions/Handouts: Heart Failure (DC) Activity/Diet/Wound Care/Special Instructions: CHF Weigh yourself every morning after you urinate. If you gain 2-3 pounds overnight or 5 pounds in one week, call your primary physician for guidance on your medications. Keep a log of your weights. Avoid salt, or foods with hidden salt. Extra salt makes your heart work harder and traps the fluid in your body for longer. Take all of your medications as directed, especially your water pills. NEVER skip a dose. Elevate your legs when you are not up moving around to help with circulation and prevent swelling. Call your physician if you notice any extra swelling in your legs, ankles, feet or abdomen, if you have a new dry cough, if your shortness of breath worsens with activity or at rest, or if you feel more fatigued.
--- NOTE | 2020-03-30 15:37 | P.PN ---
Subjective Patient is seen in follow-up for acute kidney injury on chronic kidney disease. Renal function stable. Good urine output. Oral intake fair. No chest pain or shortness of breath. Hemodynamically stable. Vital signs are stable. General: The patient appeared well nourished and normally developed. HEENT: Head exam is unremarkable. Neck is without jugular venous distension. LUNGS: Breath sounds decreased. HEART: Rate and Rhythm are regular. ABDOMEN: Soft, nontender. EXTREMITITES: Trace edema. Objective - Vital Signs Vital signs: Vital Signs Temp 98.2 F 03/30/20 12:00 Pulse 61 03/30/20 12:00 Resp 20 03/30/20 12:00 BP 147/66 03/30/20 12:00 Pulse Ox 98 03/30/20 12:00 Intake & Output 03/29/20 03/30/20 03/30/20 18:59 06:59 18:59 Intake Total 960 420 225 Output Total 1650 1500 900 Balance -690 -1080 -675 Weight 85.2 kg Intake: Oral 960 420 225 Output: Urine 1650 1500 900 Other: Voiding Method Urinal - Labs CBC & Chem 7: 03/30/20 07:08 03/30/20 07:08 Labs: Abnormal Lab Results - Last 24 Hours (Table) 03/30/20 03/30/20 Range/Units 07:08 07:08 RBC 3.39 L (4.30-5.90) m/uL Hgb 9.3 L (13.0-17.5) gm/dL Hct 29.5 L (39.0-53.0) % Lymphocytes # 0.6 L (1.0-4.8) k/uL BUN 87 H (9-20) mg/dL Creatinine 2.47 H (0.66-1.25) mg/dL Total Protein 5.6 L (6.3-8.2) g/dL Albumin 3.2 L (3.5-5.0) g/dL Assessment and Plan Plan: Assessment: 1. Acute kidney injury secondary to ATN secondary to cardiorenal syndrome. Renal function stable. Creatinine 2.47 today. 2. Chronic kidney disease stage IIIB/4 with baseline creatinine in the range of 1.6-2. 3. Acute on chronic systolic CHF with ejection fraction of 35-40%. 4. Anemia of chronic kidney disease maintained on Aranesp. He also received a dose of IV iron this admission. 5. Hypertension with chronic kidney disease. Stable. Plan: Maintain torsemide. I advised the patient to follow a low-salt diet and less than 40 ounce fluid restriction per day. He was also advised to weigh himself daily and to call if gains more than 2-3 pounds or edema worsens. Follow up outpatient in 1-2 weeks.
--- NOTE | 2020-04-01 09:35 | CDI ---
Documentation Clarification Form Date: 04/01/20 From: Nadja Mathis Phone: If you have a question about this query, please contact Kim Pandya [employer] Specialty Technician at [phone] between 8am and 5pm. Admit Date: 03/21/20 Discharge Date:03/30/20 Patient Name: Sean Lin Visit Number: [id number] ATTENTION: The Clinical Documentation Specialists (CDI) and [facility] Coding Staff appreciate your assistance in clarifying documentation. Please respond to the clarification below the line at the bottom and electronically sign. The CDI & [facility] Coding staff will review the response and follow-up if needed. Please note: Queries are made part of the Legal Health Record. If you have any questions, please contact the author of this message via ITS. Dear Dr. Mitchell Conflicting documentation has been found in the medical record: Documentation in the H&P, discharge summary and your progress notes states acute on chronic systolic and diastolic congestive heart failure. Cardiology documented acute on chronic systolic congestive heart failure in their consult note and progress notes. History/Risk Factors: CHF, hypertension, CKD 3, CAD, pulmonary hypertension, aortic and tricuspid regurgitation and mitral valve stenosis. Clinical Indicators: Decreased ejection fraction, worsening shortness of breath, occasional cough, pulmonary congestion, cardiomegaly. Vital signs/Pulse Ox: T. 98.0, P. 87, R. 20, BP 200/74, Pulse ox. 93% on room air BNP: 23,000 Echocardiogram: Overall left ventricular systolic function is moderately impaired with, an EF between 35 - 40% Chest x-ray: Cardiomegaly with small pleural effusions and consistent with minimal heart failure. Pulmonary congestion is increased slightly compared to old exam Treatment: IV Lasix 40 mg Q12, cardiology consult, telemetry In your opinion, what is the most clinically appropriate diagnosis for this patient? Acute on chronic Systolic CHF Acute on Chronic Systolic and Diastolic CHF Other explanation of clinical findings Unable to determine (no explanation for clinical findings) Acute on chronic systolic CHF MTDD
== END 2020-03-30 17:47 | disposition home health service (06) | DRG 291 ==
LOC: EC 23:17 → 3SCARD 03-19 01:26 → OBSVTOIN 03-21 09:13
PROVIDERS: ADMIT Internal Medicine; ATTEND Internal Medicine
DX: I13.0 Hypertensive heart and chronic kidney disease with heart failure and stage 1 through stage 4 chronic kidney disease, or unspecified chronic kidney disease (principal); N17.0 Acute kidney failure with tubular necrosis; I50.23 Acute on chronic systolic (congestive) heart failure; I48.19 Other persistent atrial fibrillation; N18.4 Chronic kidney disease, stage 4 (severe); I27.20 Pulmonary hypertension, unspecified; D63.1 Anemia in chronic kidney disease; E03.9 Hypothyroidism, unspecified; J44.9 Chronic obstructive pulmonary disease, unspecified; E61.1 Iron deficiency; E78.5 Hyperlipidemia, unspecified; F17.200 Nicotine dependence, unspecified, uncomplicated; I25.10 Atherosclerotic heart disease of native coronary artery without angina pectoris; I25.5 Ischemic cardiomyopathy; I08.3 Combined rheumatic disorders of mitral, aortic and tricuspid valves; K21.9 Gastro-esophageal reflux disease without esophagitis; K44.9 Diaphragmatic hernia without obstruction or gangrene; M19.90 Unspecified osteoarthritis, unspecified site; Z20.828 Contact with and (suspected) exposure to other viral communicable diseases; R79.89 Other specified abnormal findings of blood chemistry; I45.9 Conduction disorder, unspecified; Z79.890 Hormone replacement therapy; Z79.899 Other long term (current) drug therapy; Z88.2 Allergy status to sulfonamides; Z95.0 Presence of cardiac pacemaker; Z85.828 Personal history of other malignant neoplasm of skin; Z86.19 Personal history of other infectious and parasitic diseases; Z86.79 Personal history of other diseases of the circulatory system; Z87.01 Personal history of pneumonia (recurrent); Z87.898 Personal history of other specified conditions; Z87.11 Personal history of peptic ulcer disease; Z87.39 Personal history of other diseases of the musculoskeletal system and connective tissue; Z90.89 Acquired absence of other organs; Z98.890 Other specified postprocedural states; Z80.42 Family history of malignant neoplasm of prostate; Z80.8 Family history of malignant neoplasm of other organs or systems; Z80.1 Family history of malignant neoplasm of trachea, bronchus and lung; Z80.49 Family history of malignant neoplasm of other genital organs
CPT/HCPCS: 36415; 71045; 71046; 80048; 80053; 83540; 83550; 83605; 83735; 83880; 84484; 85025; 85379; 85610; 85730; 87502; 93005; 93306; 94640; 96372; 96374; 96376; 99285

== ENCOUNTER 2020-09-25 00:55 | Inpatient (IN) | payer MEDICARE ==
[2020-09-25 01:44] LABS: Basophils % (A) 0 %; Eosinophils # (A) 0.2 k/uL (0-0.7); Eosinophils % (A) 2 %; HCT 37.6 % (39.0-53.0); HGB 12.1 gm/dL (13.0-17.5); Lymphocytes # (A) 0.5 k/uL (1.0-4.8); Lymphocytes % (A) 5 %; MCH 28.9 pg (25.0-35.0); MCHC 32.2 g/dL (31.0-37.0); MCV 89.8 fL (80.0-100.0); Mean Platelet Volume 7.7; Monocytes # (A) 0.6 k/uL (0-1.0); Monocytes % (A) 5 %; Neutrophils # (A) 9.6 k/uL (1.3-7.7); Neutrophils % (A) 87 %; Platelet Count 305 k/uL (150-450); RBC 4.19 m/uL (4.30-5.90); RDW 15.6 % (11.5-15.5); WBC 11.1 k/uL (3.8-10.6)
[2020-09-25 01:59] LABS: Albumin 4.2 g/dL (3.5-5.0); Calcium 9.7 mg/dL (8.4-10.2); Magnesium 2.6 mg/dL (1.6-2.3); Potassium 4.7 mmol/L (3.5-5.1); Total Bilirubin 0.6 mg/dL (0.2-1.3)
[2020-09-25 02:04] LABS: Partial Thromboplastin Time 24.1 sec (22.0-30.0); Prothrombin Time 10.7 sec (9.0-12.0)
[2020-09-25 02:05] LABS: D-Dimer 1.46 mg/L FEU (<0.60)
--- NOTE | 2020-09-25 02:05 | XR ---
EXAM: XR Chest, 2 Views CLINICAL HISTORY: ITS.REASON XR Reason: difficulty breathing TECHNIQUE: Frontal and lateral views of the chest. COMPARISON: No relevant prior studies available. FINDINGS: Lungs: Diffuse bilateral perihilar reticular opacities. No consolidation. Pleural space: Unremarkable. No pneumothorax. Heart: Mild cardiomegaly. Left-sided dual-lead pacemaker with leads overlying the right atrium and right ventricular apex. Mediastinum: Unremarkable. Bones/joints: Unremarkable. IMPRESSION: Cardiomegaly with diffuse bilateral perihilar reticular opacities compatible with interstitial pulmonary edema.
[2020-09-25 03:45] LABS: Appearance,Urine Clear (Clear); Bilirubin,Urine Negative (Negative); Blood,Urine Negative (Negative); Color,Urine Yellow; Glucose,Urine (UA) Negative (Negative); Hyaline Casts,Urine 33 /lpf (0-2); Ketones,Urine Negative (Negative); Leukocyte Esterase,Urine Negative (Negative); Mucus,Urine Rare /hpf; Nitrite,Urine Negative (Negative); Protein,Urine 1+ (Negative); RBC,Urine 1 /hpf (0-5); Specific Gravity,Urine 1.014 (1.001-1.035); Squamous Epithelial Cell,Urine <1 /hpf (0-4); Urobilinogen,Urine <2.0 mg/dL (<2.0); WBC,Urine <1 /hpf (0-5)
[2020-09-25] MEDS ORDERED: FUROSEMIDE 10 MG/ML 4 ML VIAL IV STA (06:05)
[2020-09-25] MEDS: FUROSEMIDE 10 MG/ML 4 ML VIAL IV SCH ×2 (06:27→16:52)
[2020-09-25] MEDS ORDERED: ENOXAPARIN 80 MG/0.8 ML SYRINGE SQ STA (06:51)
[2020-09-25] MEDS ORDERED: carvediloL 12.5 MG TAB PO SCH (07:30)
[2020-09-25] MEDS ORDERED: carvediloL 6.25 MG TAB PO SCH (07:30)
[2020-09-25] MEDS ORDERED: SPIRONOLACTONE 25 MG TAB PO SCH (09:00)
[2020-09-25] MEDS ORDERED: hydrALAZINE HCL 25 MG TAB PO SCH (09:00)
[2020-09-25] MEDS: TORSEMIDE 20 MG TAB PO SCH ×2 (09:02→09:09)
[2020-09-25] MEDS ORDERED: LOSARTAN 25 MG TAB PO SCH ×2 (09:15→21:00)
[2020-09-25] MEDS ORDERED: HEPARIN SODIUM 1,000 UN/ML (10ML VL) IV PRN (10:17)
--- NOTE | 2020-09-25 10:44 | P.HPIM ---
History of Present Illness H&P Date: 09/25/20 Chief Complaint: Shortness of breath This is an 80-year-old male patient who presented to the ER with complaints of increasing shortness of breath over the past few months. Patient also reports swelling to lower extremities. Patient has a past medical history of A. fib, he art failure, COPD, GERD, GI bleed, hypertension, thyroid disorder. BNP elevated at 42,400. Mildly elevated troponin 0.071 and 0.098. Patient's creatinine 2.59 and bun 69 this does appear on patient's baseline. Patient also elevated d- dimer 1.46. VQ scan ordered due to chronic kidney disease. At that time cardiology services will be consulted. Patient started on IV Lasix. Upon examination feet found cold to touch bilaterally right greater than left with swelling and erythema tender to touch. Will start patient on Rocephin for cellulitis. Will consult vascular surgery due to concerns of arterial disease. Will order venous Doppler to rule out DVT. This time patient denies chest pain. Patient does complain of shortness of breath. Patient denies nausea vomiting or diarrhea. Patient denies any urinary burning or frequency Review of Systems Please refer to HPI otherwise unremarkable Past Medical History Past Medical History: Atrial Fibrillation, Blood Disorder, Heart Failure, COPD, GERD/Reflux, GI Bleed, Hypertension, Thyroid Disorder Additional Past Medical History / Comment(s): ANEMIA, HIATAL HERNIA (PER EGD) arrhythmia, skin cancer - RUE, LUE, R hoahaoism, Nose (sees Dr. Cortez) PAST RT LEG ULCERS, chf History of Any Multi-Drug Resistant Organisms: VRE Date of last positivie culture/infection: 02/24/15 MDRO Source:: Right leg wound Past Surgical History: Adenoidectomy, Pacemaker, Tonsillectomy Additional Past Surgical History / Comment(s): hemorrhoidectomy, tennis elbow, EGD. Past Anesthesia/Blood Transfusion Reactions: No Reported Reaction Additional Past Anesthesia/Blood Transfusion Reaction / Comment(s): Pt has received blood in past without reaction. Type of Cardiac Device: Permanent Pacemaker Device Placement Date:: 09/28/19 Past Psychological History: No Psychological Hx Reported Smoking Status: Former smoker Past Alcohol Use History: None Reported Past Drug Use History: None Reported - Past Family History Mother Family Medical History: No Reported History Additional Family Medical History / Comment(s): Mother was healthy and lived to be 97yrs old. Daughter(s) History Unknown: Yes Family Medical History: Cancer Additional Family Medical History / Comment(s): uterine/lung/brain CA - current terminal Father History Unknown: Yes Family Medical History: Cancer Additional Family Medical History / Comment(s): prostate CA - from Medications and Allergies Home Medications Medication Instructions Recorded Confirmed Type Multivitamin [Men's Multi-Vitamin] 1 tab PO HS 12/13/14 09/25/20 History Levothyroxine Sodium [Synthroid] 88 mcg PO HS 08/30/19 09/25/20 History Losartan [Cozaar] 25 mg PO HS tab 10/02/19 09/25/20 Rx Docusate [Colace] 100 mg PO HS 03/18/20 09/25/20 History Allopurinol [Zyloprim] 100 mg PO DAILY 09/25/20 09/25/20 History Furosemide [Lasix] 40 mg PO HS 09/25/20 09/25/20 History Iron 27 Mg 27 mg PO HS 09/25/20 09/25/20 History Torsemide [Demadex] 20 mg PO DAILY PRN 09/25/20 09/25/20 History carvediloL [Coreg] 6.25 mg PO BID 09/25/20 09/25/20 History Allergies Allergy/AdvReac Type Severity Reaction Status Date / Time Sulfa (Sulfonamide Allergy Rash/Hives Verified 09/25/20 01:05 Antibiotics) Physical Exam Vitals: Vital Signs Temp Pulse Pulse Resp BP BP Pulse Ox 09/25/20 08:43 60 18 178/93 98 09/25/20 08:00 98.3 F 66 16 120/66 98 09/25/20 07:39 98.4 F 86 18 188/92 94 L 09/25/20 06:30 60 18 188/71 100 09/25/20 04:55 97.9 F 60 18 181/63 100 09/25/20 03:55 62 18 162/85 98 09/25/20 02:55 62 18 177/64 97 09/25/20 01:05 97.4 F L 66 24 183/67 97 Intake and Output 09/24/20 09/25/20 09/25/20 22:59 06:59 14:59 Intake Total 240 Balance 240 Intake: Oral 240 Other: Weight 83.915 kg 83.915 kg Head normocephalic Neck supple Lungs diminished bilaterally Heart regular rate and rhythm S1-S2, no rub or gallop Abdomen is soft nontender nondistended positive bowel sounds no hepatosplenomegaly Extremities +3 pedal edema noted to right side. Left +1. Bilateral spread is noted to feet. Neuro alert and orientated to 3 Results CBC & Chem 7: 09/25/20 01:30 09/25/20 01:30 Labs: Abnormal Lab Results - Last 24 Hours (Table) 09/25/20 09/25/20 09/25/20 Range/Units 01:30 01:30 01:30 WBC 11.1 H (3.8-10.6) k/uL RBC 4.19 L (4.30-5.90) m/uL Hgb 12.1 L (13.0-17.5) gm/dL Hct 37.6 L (39.0-53.0) % RDW 15.6 H (11.5-15.5) % Neutrophils # 9.6 H (1.3-7.7) k/uL Lymphocytes # 0.5 L (1.0-4.8) k/uL D-Dimer 1.46 H (<0.60) mg/L FEU BUN (9-20) mg/dL Creatinine (0.66-1.25) mg/dL Glucose (74-99) mg/dL Magnesium (1.6-2.3) mg/dL AST (17-59) U/L ALT (4-49) U/L Troponin I (0.000-0.034) ng/mL Urine Protein 1+ H (Negative) Hyaline Casts 33 H (0-2) /lpf Urine Mucus Rare H (None) /hpf 09/25/20 09/25/20 09/25/20 Range/Units 01:30 01:30 07:25 WBC (3.8-10.6) k/uL RBC (4.30-5.90) m/uL Hgb (13.0-17.5) gm/dL Hct (39.0-53.0) % RDW (11.5-15.5) % Neutrophils # (1.3-7.7) k/uL Lymphocytes # (1.0-4.8) k/uL D-Dimer (<0.60) mg/L FEU BUN 69 H (9-20) mg/dL Creatinine 2.59 H (0.66-1.25) mg/dL Glucose 123 H (74-99) mg/dL Magnesium 2.6 H (1.6-2.3) mg/dL AST 66 H (17-59) U/L ALT 66 H (4-49) U/L Troponin I 0.071 H* 0.098 H* (0.000-0.034) ng/mL Urine Protein (Negative) Hyaline Casts (0-2) /lpf Urine Mucus (None) /hpf Thrombosis Risk Factor Assmnt - Choose All That Apply Each Factor Represents 1 point: Abnormal pulmonary function (COPD), Obesity (BMI >25), Swollen legs (current) Each Risk Factor Represents 3 Points: Age 75 years or older Other congenital or acquired thrombophilia - If yes, enter type in comment: No Thrombosis Risk Factor Assessment Total Risk Factor Score: 6 Thrombosis Risk Factor Assessment Level: High Risk Assessment and Plan Assessment: 1. Shortness breath secondary to acute on chronic systolic CHF exacerbation. BNP elevated at 43,000. Patient started on IV Lasix. Cardiomegaly with diffuse bilateral perihilar reticular opacities compatible with interstitial pulmonary disease. Cardiology services consulted 2-D echo ordered. 2. Elevated d-dimer. D-dimer 1.46. Venous Doppler ordered to rule out DVT. V Q scan ordered 3. Elevated troponins. Cardiology consult did. Patient started on heparin drip per cardiology 4. Cellulitis to lower extremities. She started on Rocephin. 5. Coolness noted to bilateral feet. Vascular surgery consulted 6. Chronic kidney disease stage III. Creatinine 2.5 and bun 69 this does appear on patient's baseline 7. 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 History of COPD DVT prophylaxis heparin drip. GI prophylaxis Protonix Cardiology and vascular surgery consulted Patient started on IV Lasix Heparin drip added for elevated troponin VQ scan ordered for d-dimer Patient on Rocephin for cellulitis Venous Doppler ordered Time with Patient: Greater than 30
--- NOTE | 2020-09-25 10:51 | US ---
EXAMINATION TYPE: US venous doppler duplex LE DATE OF EXAM: 09/25/2020 10:39 AM COMPARISON: NONE CLINICAL HISTORY: lower extremity swollen. swollen feet SIDE PERFORMED: bilateral TECHNIQUE: The lower extremity deep venous system is examined utilizing real time linear array sonog urvashi with graded compression, doppler sonography and color-flow sonography. VESSELS IMAGED: Common Femoral Vein Deep Femoral Vein Greater Saphenous Vein * Femoral Vein Popliteal Vein Small Saphenous Vein * Proximal Calf Veins (* superficial vessels) Right Leg: no evidence of DVT Left Leg: no evidence of DVT IMPRESSION: No evidence for DVT at this time.
[2020-09-25] MEDS: HEPARIN SOD,PORK IN 0.45% NACL 25,000 UNIT in 0.45% NACL 1 250ML.BAG IV SCH (10:55)
[2020-09-25 11:21] LABS: INR 1.1 (<1.2); Partial Thromboplastin Time 28.5 sec (22.0-30.0); Prothrombin Time 11.5 sec (9.0-12.0)
--- NOTE | 2020-09-25 12:17 | P.CRDCN ---
<Samara Arguello - Last Filed: 09/25/20 11:48> History of Present Illness History of present illness: HISTORY OF PRESENTING ILLNESS This is a pleasant 80-year-old male past medical history significant for chronic systolic heart failure with reduced ejection fraction, high degree AV block, sick sinus syndrome s/p Bi-ventricular PPM (09/2019), chronic systolic heart failure with reduced EF, valvular heart disease with mixed moderate aortic stenosis and moderate aortic regurgitation, mild mitral stenosis, chronic kidney disease, former nicotine dependence, paroxysmal atrial fibrillation. He currently follows in the office with Dr. Owusu. We have been asked to see in consultation for congestive heart failure. Patient presents to the emergency department with worsening shortness of breath, dyspnea on exertion, lower extremity edema and symptoms of orthopnea. Patient denies history of stroke or diabetes. He is a former smoker quit last year. BNP 43,400 (23,000 in 03/2020). Started on IV Lasix. Troponin 0.07, 0.09 (patient with chronically elevated troponin). Hypertensive on admission BP 180s/60s HR 60s, afebrile. DIAGNOSTICS Most recent 2D echo 03/2020EF 35-40%, anteroseptal and apex hypokinesis, left atrium is severely dilated, mild to moderate aortic regurgitation, moderate aortic stenosis with a peak/mean gradient of 31.9 mmHg/14.18 mmHg, mild to moderate mitral stenosis with peak and mean gradients of 19.3 mmHg/6 mmHg, mild tricuspid regurgitation, moderate pulmonary hypertension EKG reveals underlying atrial fibrillation, bi-ventricular paced HR Telemetry tracings indicate Laboratory data reviewed, troponin 0.07, 0.09 (patient with chronically elevated troponin), BNP 43,400 (23,000 in 03/2020), WBC 11.1, hemoglobin 12.1, platelets 25, d-dimer elevated 1.46, sodium 140, potassium 4.7, serum creatinine 2.59, magnesium 2.6, AST 66, ALP 66, Covid-19 negative Chest xray mild cardiomegaly, left-sided to alleviated pacemaker with leads, diffuse bilateral reticular opacities compatible with interstitial pulmonary edema Current cardiac medications include torsemide 20 mg daily, carvedilol 6.25 mg twice a day, losartan 25 mg nightly US Dopplers lower extremities- negative for DVT. REVIEW OF SYSTEMS At the time of my exam: CONSTITUTIONAL: Denies fever or chills. CARDIOVASCULAR: +shortness of breath, +orthopnea, +PND Denies chest pain, or palpitations. RESPIRATORY: Denies cough. GASTROINTESTINAL: Denies abdominal pain, diarrhea, constipation, nausea or vomiting. MUSCULOSKELETAL: Denies myalgias. NEUROLOGIC: Denies numbness, tingling, headacbe or weakness. ENDOCRINE: Denies fatigue, weight change, polydipsia or polyurina. GENITOURINARY: Denies burning, hematuria or urgency with micturation. HEMATOLOGIC: Denies history of anemia or bleeding. PHYSICAL EXAMINATION Blood pressure 178/93, heart rate 60, afebrile, oxygen saturation is 98% on 2 L nasal cannula CONSTITUTIONAL: No apparent distress. HEENT: Head is normocephalic. Pupils are equal, round. Sclerae anicteric. Mucous membranes of the mouth are moist. No JVD. No carotid bruit. CHEST EXAMINATION: Lungs are clear to auscultation. No chest wall tenderness is noted on palpation or with deep breathing. HEART EXAMINATION: Regular rate and rhythm. S1, S2 heard. No murmurs, gallops or rub. ABDOMEN: Soft, nontender. Positive bowel sounds. EXTREMITIES: 2+ peripheral pulses,4+ left pedal edema, 3+ bilateral lower extremity edema. and no calf tenderness. SKIN: Redness to left lower extremity NEUROLOGIC EXAMINATION: Patient is awake, alert and oriented x3. ASSESSMENT Acute on Chronic systolic heart failure with reduced ejection fraction EF 35-40% Elevated troponin, not indicative of acute coronary syndrome. No ischemia on EKG, no chest discomfort. Elevated D-dimer High degree AV block Sick sinus syndrome s/p Bi-ventricular PPM Valvular heart disease with mixed moderate aortic stenosis and moderate aortic regurgitation, mild mitral stenosis Chronic kidney disease Hypertension Paroxysmal atrial fibrillation -[id number] score 4 PLAN -Obtain 2D echocardiogram -Start heparin drip for paroxysmal atrial fibrillation, will address further anticoagulation -Plan for VQ scan today -Continue IV Diuresis with IV Lasix 40mg BID -Increase carvedilol to 12.5mg BID -Continue Losartan 25mg Daily -Heart Healthy Diet, I/Os, Daily Weights -Close follow up in clinic Nurse Practitioner note has been reviewed, I agree with a documented findings and plan of care. Patient was seen and examined. Past Medical History Past Medical History: Atrial Fibrillation, Blood Disorder, Heart Failure, COPD, GERD/Reflux, GI Bleed, Hypertension, Thyroid Disorder Additional Past Medical History / Comment(s): ANEMIA, HIATAL HERNIA (PER EGD) ar rhythmia, skin cancer - RUE, LUE, R congregation, Nose (sees Dr. Cortez) PAST RT LEG ULCERS, chf History of Any Multi-Drug Resistant Organisms: VRE Date of last positivie culture/infection: 02/24/15 MDRO Source:: Right leg wound Past Surgical History: Adenoidectomy, Pacemaker, Tonsillectomy Additional Past Surgical History / Comment(s): hemorrhoidectomy, tennis elbow, EGD. Past Anesthesia/Blood Transfusion Reactions: No Reported Reaction Additional Past Anesthesia/Blood Transfusion Reaction / Comment(s): Pt has received blood in past without reaction. Type of Cardiac Device: Permanent Pacemaker Device Placement Date:: 09/28/19 Past Psychological History: No Psychological Hx Reported Smoking Status: Former smoker Past Alcohol Use History: None Reported Past Drug Use History: None Reported - Past Family History Mother Family Medical History: No Reported History Additional Family Medical History / Comment(s): Mother was healthy and lived to be 97yrs old. Daughter(s) History Unknown: Yes Family Medical History: Cancer Additional Family Medical History / Comment(s): uterine/lung/brain CA - current terminal Father History Unknown: Yes Family Medical History: Cancer Additional Family Medical History / Comment(s): prostate CA - from Medications and Allergies Home Medications Medication Instructions Recorded Confirmed Type Multivitamin [Men's Multi-Vitamin] 1 tab PO HS 12/13/14 09/25/20 History Levothyroxine Sodium [Synthroid] 88 mcg PO HS 08/30/19 09/25/20 History Losartan [Cozaar] 25 mg PO HS tab 10/02/19 09/25/20 Rx Docusate [Colace] 100 mg PO HS 03/18/20 09/25/20 History Allopurinol [Zyloprim] 100 mg PO DAILY 09/25/20 09/25/20 History Furosemide [Lasix] 40 mg PO HS 09/25/20 09/25/20 History Iron 27 Mg 27 mg PO HS 09/25/20 09/25/20 History Torsemide [Demadex] 20 mg PO DAILY PRN 09/25/20 09/25/20 History carvediloL [Coreg] 6.25 mg PO BID 09/25/20 09/25/20 History Allergies Allergy/AdvReac Type Severity Reaction Status Date / Time Sulfa (Sulfonamide Allergy Rash/Hives Verified 09/25/20 01:05 Antibiotics) Physical Exam Vitals: Vital Signs Temp Pulse Resp BP Pulse Ox 09/25/20 06:30 60 18 188/71 100 09/25/20 04:55 97.9 F 60 18 181/63 100 09/25/20 03:55 62 18 162/85 98 09/25/20 02:55 62 18 177/64 97 09/25/20 01:05 97.4 F L 66 24 183/67 97 Intake and Output 09/24/20 09/25/20 09/25/20 22:59 06:59 14:59 Other: Weight 83.915 kg Results 09/25/20 01:30 09/25/20 01:30 Cardiac Enzymes 09/25/20 09/25/20 Range/Units 01:30 01:30 AST 66 H (17-59) U/L Troponin I 0.071 H* (0.000-0.034) ng/mL Coagulation 09/25/20 Range/Units 01:30 PT 10.7 (9.0-12.0) sec APTT 24.1 (22.0-30.0) sec CBC 09/25/20 Range/Units 01:30 WBC 11.1 H (3.8-10.6) k/uL RBC 4.19 L (4.30-5.90) m/uL Hgb 12.1 L (13.0-17.5) gm/dL Hct 37.6 L (39.0-53.0) % Plt Count 305 (150-450) k/uL Comprehensive Metabolic Panel 09/25/20 Range/Units 01:30 Sodium 140 (137-145) mmol/L Potassium 4.7 (3.5-5.1) mmol/L Chloride 106 (98-107) mmol/L Carbon Dioxide 24 (22-30) mmol/L BUN 69 H (9-20) mg/dL Creatinine 2.59 H (0.66-1.25) mg/dL Glucose 123 H (74-99) mg/dL Calcium 9.7 (8.4-10.2) mg/dL AST 66 H (17-59) U/L ALT 66 H (4-49) U/L Alkaline Phosphatase 120 (38-126) U/L Total Protein 7.0 (6.3-8.2) g/dL Albumin 4.2 (3.5-5.0) g/dL Current Medications Generic Name Dose Route Start Last Admin Trade Name Freq PRN Reason Stop Dose Admin Albuterol Sulfate 2 puff 09/25/20 06:09 Albuterol Hfa Inhaler INHALATION RT-Q4H PRN Shortness Of Breath Carvedilol 6.25 mg 09/25/20 07:30 Carvedilol 6.25 Mg Tab PO AC-BID [facility] Docusate Sodium 100 mg 09/25/20 21:00 Docusate 100 Mg Cap PO HS [facility] Ferrous Sulfate 325 mg 09/25/20 21:00 Ferrous Sulfate 325 Mg Tab PO HS [facility] Furosemide 40 mg 09/25/20 06:15 09/25/20 06:27 Furosemide 10 Mg/Ml 4 Ml Vial IV 40 mg Q12H [facility] Administration Levothyroxine Sodium 88 mcg 09/25/20 21:00 Levothyroxine 88 Mcg Tab PO HS [facility] Losartan Potassium 25 mg 09/25/20 21:00 Losartan 25 Mg Tab PO HS [facility] Sodium Chloride 10 ml 09/25/20 09:00 Sodium Chloride 0.9% Flush 10 Ml Syringe IV BID [facility] Torsemide 80 mg 09/25/20 09:00 Torsemide 20 Mg Tab PO DAILY [facility]CO Intake and Output 09/24/20 09/25/20 09/25/20 22:59 06:59 14:59 Other: Weight 83.915 kg 09/25/20 01:30 09/25/20 01:30 <Lavon Owusu - Last Filed: 09/25/20 13:02> Physical Exam Vitals: Vital Signs Temp Pulse Pulse Resp BP BP Pulse Ox 09/25/20 11:05 98.0 F 60 21 171/74 99 09/25/20 08:43 60 18 178/93 98 09/25/20 08:00 98.3 F 66 16 120/66 98 09/25/20 07:39 98.4 F 86 18 188/92 94 L 09/25/20 06:30 60 18 188/71 100 09/25/20 04:55 97.9 F 60 18 181/63 100 05/14/21 03:55 62 18 162/85 98 09/25/20 02:55 62 18 177/64 97 09/25/20 01:05 97.4 F L 66 24 183/67 97 Intake and Output 09/24/20 09/25/20 09/25/20 22:59 06:59 14:59 Intake Total 240 Output Total 150 Balance 90 Intake: Oral 240 Output: Urine 150 Other: Weight 83.915 kg 83.915 kg Results 09/25/20 01:30 09/25/20 01:30 Cardiac Enzymes 09/25/20 09/25/20 09/25/20 Range/Units 01:30 01:30 07:25 AST 66 H (17-59) U/L Troponin I 0.071 H* 0.098 H* (0.000-0.034) ng/mL 09/25/20 Range/Units 10:22 AST (17-59) U/L Troponin I 0.092 H* (0.000-0.034) ng/mL Coagulation 09/25/20 09/25/20 Range/Units 01:30 10:23 PT 10.7 11.5 (9.0-12.0) sec APTT 24.1 28.5 (22.0-30.0) sec CBC 09/25/20 Range/Units 01:30 WBC 11.1 H (3.8-10.6) k/uL RBC 4.19 L (4.30-5.90) m/uL Hgb 12.1 L (13.0-17.5) gm/dL Hct 37.6 L (39.0-53.0) % Plt Count 305 (150-450) k/uL Comprehensive Metabolic Panel 09/25/20 Range/Units 01:30 Sodium 140 (137-145) mmol/L Potassium 4.7 (3.5-5.1) mmol/L Chloride 106 (98-107) mmol/L Carbon Dioxide 24 (22-30) mmol/L BUN 69 H (9-20) mg/dL Creatinine 2.59 H (0.66-1.25) mg/dL Glucose 123 H (74-99) mg/dL Calcium 9.7 (8.4-10.2) mg/dL AST 66 H (17-59) U/L ALT 66 H (4-49) U/L Alkaline Phosphatase 120 (38-126) U/L Total Protein 7.0 (6.3-8.2) g/dL Albumin 4.2 (3.5-5.0) g/dL Current Medications Generic Name Dose Route Start Last Admin Trade Name Freq PRN Reason Stop Dose Admin Albuterol Sulfate 2 puff 09/25/20 06:09 Albuterol Hfa Inhaler INHALATION RT-Q4H PRN Shortness Of Breath Carvedilol 12.5 mg 09/25/20 17:30 Carvedilol 6.25 Mg Tab PO AC-BID [facility] Docusate Sodium 100 mg 09/25/20 21:00 Docusate 100 Mg Cap PO HS [facility]CO Ferrous Sulfate 325 mg 09/25/20 21:00 Ferrous Sulfate 325 Mg Tab PO HS [facility] Furosemide 40 mg 09/25/20 06:15 09/25/20 06:27 Furosemide 10 Mg/Ml 4 Ml Vial IV 40 mg Q12H [facility] Administration Heparin Sodium (Porcine) 0 unit 09/25/20 10:17 Heparin Sodium 1,000 Un/Ml (10ml Vl) IV PER PROTOCOL PRN Low PTT Protocol Ceftriaxone Sodium 1 gm/ 50 mls @ 100 mls/hr 09/25/20 11:00 09/25/20 10:42 Sodium Chloride IVPB 100 mls/hr Q24HR [facility] Administration Heparin Sodium/Sodium Chloride 250 mls @ 10 mls/hr 09/25/20 10:30 09/25/20 10:55 25,000 unit/ Sodium Chloride IV 11.9168 units/kg/hr .Q24H C[facility]CO 10 mls/hr Administration Protocol 11.9168 UNITS/KG/HR Levothyroxine Sodium 88 mcg 09/25/20 21:00 Levothyroxine 88 Mcg Tab PO HS [facility] Losartan Potassium 25 mg 09/25/20 09:15 09/25/20 09:10 Losartan 25 Mg Tab PO 25 mg DAILY [facility] Administration Pantoprazole Sodium 40 mg 09/26/20 07:30 Pantoprazole 40 Mg Tablet PO AC-BRKFST [facility]CO Sodium Chloride 10 ml 09/25/20 09:00 09/25/20 09:02 Sodium Chloride 0.9% Flush 10 Ml Syringe IV 10 ml BID [facility]CO Administration Intake and Output 09/24/20 09/25/20 09/25/20 22:59 06:59 14:59 Intake Total 240 Output Total 150 Balance 90 Intake: Oral 240 Output: Urine 150 Other: Weight 83.915 kg 83.915 kg Patient Weight 09/26/20 06:59 Weight 83.915 kg 09/25/20 01:30 09/25/20 01:30
--- NOTE | 2020-09-25 12:57 | ECHOF ---
Referral Reason:aortic valve assessment MEASUREMENTS -------- HEIGHT: 175.3 cm WEIGHT: 83.9 kg BP: 178/93 RVIDd: 4.2 cm (< 3.3) IVSd: 2.1 cm (0.6 - 1.1) LVIDd: 6.0 cm (3.9 - 5.3) LVPWd: 1.9 cm (0.6 - 1.1) IVSs: 2.3 cm LVIDs: 3.9 cm LVPWs: 2.2 cm LA Diam: 4.2 cm (2.7 - 3.8) LAESV Index (A-L): 89.69 ml/m Ao Diam: 3.4 cm (2.0 - 3.7) AV Cusp: 1.2 cm (1.5 - 2.6) MV EXCURSION: 11.432 mm (> 18.000) MV EF SLOPE: 14 mm/s (70 - 150) EPSS: 1.1 cm MV E Renato: 2.04 m/s MV DecT: 359 ms MV A Renato: 0.57 m/s MV E/A Ratio: 3.58 AV maxP.09 mmHg AV meanP.38 mmHg AR PHT: 334 ms RAP: 15.00 mmHg RVSP: 73.80 mmHg FINDINGS -------- Paced rhythm. This was a technically difficult study with suboptimal parasternal views. The left ventricle is mildly dilated. There is severe concentric left ventricular hypertrophy. Ov erall left ventricular systolic function is moderate-severely impaired with, an EF between 30 - 35 %. Basal inferior LV wall motion is normal. Mid inferior LV wall motion is normal. Apical anterio r LV wall motion is hypokinetic. Apical lateral LV wall motion is hypokinetic. Apical inferior LV wall motion is hypokinetic. Apical septum LV wall motion is hypokinetic. The right ventricle is severely enlarged. LA is severely dilated >40 ml/m2 The right atrium is normal in size. 5 ml of Lumason was utilized for enhancement of images. Interatrial and interventricular septum intact. There is mild aortic valve sclerosis. There is [id number] aortic regurgitation. There is mild aortic stenosis present. Peak/mean gradient across the Aortic Valve is 40.09mmHg / 17.38mmHg. The mitral valve leaflets are moderately thickened. Moderate mitral annular calcification present. Moderate mitral regurgitation is present. The peak and mean MV gradients are 23.84mmHg 7.32mmHg as measured by doppler. Moderate mitral stenosis. Moderate to severe tricuspid regurgitation present. There is severe pulmonary hypertension. The r ight ventricular systolic pressure, as measured by Doppler, is 73.80mmHg. Trace/mild (physiologic) pulmonic regurgitation. The aortic root size is normal. The inferior vena cava is dilated with no significant inspiratory collapse which is consistent estima peter right atrial pressure of >15 mmHg. There is no pericardial effusion. CONCLUSIONS -------- 1. This was a technically difficult study with suboptimal parasternal views. 2. The left ventricle is mildly dilated. 3. There is severe concentric left ventricular hypertrophy. 4. Overall left ventricular systolic function is moderate-severely impaired with, an EF between 30 - 35 %. 5. Basal inferior LV wall motion is normal. 6. Mid inferior LV wall motion is normal. 7. Apical anterior LV wall motion is hypokinetic. 8. Apical lateral LV wall motion is hypokinetic. 9. Apical inferior LV wall motion is hypokinetic. 10. Apical septum LV wall motion is hypokinetic. 11. The right ventricle is severely enlarged. 12. LA is severely dilated >40 ml/m2 13. 5 ml of Lumason was utilized for enhancement of images. 14. There is mild aortic valve sclerosis. 15. There is [id number] aortic regurgitation. 16. There is mild aortic stenosis present. 17. Peak/mean gradient across the Aortic Valve is 40.09mmHg / 17.38mmHg. 18. The mitral valve leaflets are moderately thickened. 19. Moderate mitral annular calcification present. 20. Moderate mitral regurgitation is present. 21. The peak and mean MV gradients are 23.84mmHg 7.32mmHg as measured by doppler. 22. Moderate mitral stenosis. 23. Moderate to severe tricuspid regurgitation present. 24. There is severe pulmonary hypertension. 25. The right ventricular systolic pressure, as measured by Doppler, is 73.80mmHg. 26. Trace/mild (physiologic) pulmonic regurgitation. 27. The inferior vena cava is dilated with no significant inspiratory collapse which is consistent es timated right atrial pressure of >15 mmHg. 28. There is no pericardial effusion. [employer] TECHNICIAN: Shilpa Valdez RDCS
[2020-09-25 15:11] LABS: Hemoglobin A1C 5.7 % (4.0-6.0)
--- NOTE | 2020-09-25 15:40 | NM ---
EXAMINATION TYPE: NM pul vent and perfuse DATE OF EXAM: 09/25/2020 COMPARISON: NONE HISTORY: Shortness of breath rule out PE TECHNIQUE: Utilizing inhalation of 61.7 mCi Tc 99m DTPA aerosol and intravenous injection of 4.6 mCi of Tc 99m MAA, ventilation and perfusion images are acquired post injection in multiple projections. FINDINGS: Normal radiotracer distribution is noted in the lungs. There is no evidence of mismatched defects. IMPRESSION: Low probability for pulmonary embolism.
--- NOTE | 2020-09-25 15:44 | P.GSCN ---
History of Present Illness Consult date: 09/25/20 Reason for Consult: Redness, cold extremities Requesting physician: Alexandra Mitchell History of present illness: Ham a pleasant 80-year-old male patient who presented to the emergency room with complaints of increased shortness of breath over the past few months. He also is reporting lower extremity swelling. His past medical history includes atrial fibrillation, heart failure, COPD, GERD, PA bleed, hyper tension, and thyroid disorder. He had mildly elevated troponins at 0.071 and 0.09. VQ scan has been ordered and pending. Primary medicine found on exam that the patient had cooler lower extremities he stated right greater than left with swelling and erythema with tenderness to touch therefore vascular surgery was consulted. He was started on antibiotics for cellulitis. Venous Doppler ultrasound was ordered to rule out DVT and was negative bilaterally for DVT. He still states he has shortness of breath, denies any chest pain, abdominal pain, nausea or vomiting. He states he has had a history of previous leg ulcers which healed. Denies any history of peripheral arterial disease that he knows of, states he has had pain in his feet mostly in his toes for approximately one month. He's had long-term swelling in his lower extremities. He denies any pain with walking. Review of Systems 14 point review systems was completed all pertinent positives and negatives as stated in HPI Past Medical History Past Medical History: Atrial Fibrillation, Blood Disorder, Heart Failure, COPD, GERD/Reflux, GI Bleed, Hypertension, Thyroid Disorder Additional Past Medical History / Comment(s): ANEMIA, HIATAL HERNIA (PER EGD) arrhythmia, skin cancer - RUE, LUE, R druze, Nose (sees Dr. 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 Past Anesthesia/Blood Transfusion Reactions: No Reported Reaction Additional Past Anesthesia/Blood Transfusion Reaction / Comm: Pt has received blood in past without reaction. Type of Cardiac Device: Permanent Pacemaker Device Placement Date:: 09/28/19 Past Psychological History: No Psychological Hx Reported Smoking Status: Former smoker Past Alcohol Use History: None Reported Past Drug Use History: None Reported - Past Family History Mother Family Medical History: No Reported History Additional Family Medical History / Comment(s): Mother was healthy and lived to be 97yrs old. Daughter(s) History Unknown: Yes Family Medical History: Cancer Additional Family Medical History / Comment(s): uterine/lung/brain CA - current terminal Father History Unknown: Yes Family Medical History: Cancer Additional Family Medical History / Comment(s): prostate CA - from Medications and Allergies Home Medications Medication Instructions Recorded Confirmed Type Multivitamin [Men's Multi-Vitamin] 1 tab PO HS 12/13/14 09/25/20 History Levothyroxine Sodium [Synthroid] 88 mcg PO HS 08/30/19 09/25/20 History Losartan [Cozaar] 25 mg PO HS tab 10/02/19 09/25/20 Rx Docusate [Colace] 100 mg PO HS 03/18/20 09/25/20 History Allopurinol [Zyloprim] 100 mg PO DAILY 09/25/20 09/25/20 History Furosemide [Lasix] 40 mg PO HS 09/25/20 09/25/20 History Iron 27 Mg 27 mg PO HS 09/25/20 09/25/20 History Torsemide [Demadex] 20 mg PO DAILY PRN 09/25/20 09/25/20 History carvediloL [Coreg] 6.25 mg PO BID 09/25/20 09/25/20 History Allergies Allergy/AdvReac Type Severity Reaction Status Date / Time Sulfa (Sulfonamide Allergy Rash/Hives Verified 09/25/20 01:05 Antibiotics) Surgical - Exam Vital Signs Temp Pulse Resp BP Pulse Ox 97.4 F L 66 24 183/67 97 09/25/20 01:05 09/25/20 01:05 09/25/20 01:05 09/25/20 01:05 09/25/20 01:05 General appearance: The patient is alert, oriented, in no acute distress. HET: Head is normocephalic and atraumatic. Pupils are equal and reactive. Oropharynx is clear without lesions. Neck: Supple without lymphadenopathy. Trachea midline. Heart: S1 S2. Regular rate and rhythm. Lungs: Diminished bilaterally. Abdomen: Soft, nontender, nondistended. Extremities: Bilateral lower extremity edema, +2. Bilateral feet cool to touch, with mild erythema. Patient was sitting up with bilateral extremities over the bedside with purple discoloration. Once lifted and lying flat on the bed color did turn. HEENT. However there was some residual purple color to his toes on bilateral feet, left greater than right. Patient has tenderness to touch to bilateral toes. Capillary refill 3-5 seconds. Bilateral palpable femoral pulses, multiphasic popliteal Doppler signals, biphasic posterior tibialis signals, monophasic Doppler signal to right dorsalis pedis, unable to obtain on the left dorsalis pedis. Neurological: No focal deficits. Strength and sensation are grossly intact. Results Venous Doppler ultrasound lower extremities negative for DVT bilaterally. - Labs 09/25/20 01:30 09/25/20 01:30 Abnormal Lab Results - Last 24 Hours (Table) 09/25/20 09/25/20 09/25/20 Range/Units 01:30 01:30 01:30 WBC 11.1 H (3.8-10.6) k/uL RBC 4.19 L (4.30-5.90) m/uL Hgb 12.1 L (13.0-17.5) gm/dL Hct 37.6 L (39.0-53.0) % RDW 15.6 H (11.5-15.5) % Neutrophils # 9.6 H (1.3-7.7) k/uL Lymphocytes # 0.5 L (1.0-4.8) k/uL D-Dimer 1.46 H (<0.60) mg/L FEU BUN (9-20) mg/dL Creatinine (0.66-1.25) mg/dL Glucose (74-99) mg/dL Magnesium (1.6-2.3) mg/dL AST (17-59) U/L ALT (4-49) U/L Troponin I (0.000-0.034) ng/mL Urine Protein 1+ H (Negative) Hyaline Casts 33 H (0-2) /lpf Urine Mucus Rare H (None) /hpf 09/25/20 09/25/20 09/25/20 Range/Units 01:30 01:30 07:25 WBC (3.8-10.6) k/uL RBC (4.30-5.90) m/uL Hgb (13.0-17.5) gm/dL Hct (39.0-53.0) % RDW (11.5-15.5) % Neutrophils # (1.3-7.7) k/uL Lymphocytes # (1.0-4.8) k/uL D-Dimer (<0.60) mg/L FEU BUN 69 H (9-20) mg/dL Creatinine 2.59 H (0.66-1.25) mg/dL Glucose 123 H (74-99) mg/dL Magnesium 2.6 H (1.6-2.3) mg/dL AST 66 H (17-59) U/L ALT 66 H (4-49) U/L Troponin I 0.071 H* 0.098 H* (0.000-0.034) ng/mL Urine Protein (Negative) Hyaline Casts (0-2) /lpf Urine Mucus (None) /hpf Diabetes panel 09/25/20 Range/Units 01:30 Sodium 140 (137-145) mmol/L Potassium 4.7 (3.5-5.1) mmol/L Chloride 106 (98-107) mmol/L Carbon Dioxide 24 (22-30) mmol/L BUN 69 H (9-20) mg/dL Creatinine 2.59 H (0.66-1.25) mg/dL Glucose 123 H (74-99) mg/dL Calcium 9.7 (8.4-10.2) mg/dL AST 66 H (17-59) U/L ALT 66 H (4-49) U/L Alkaline Phosphatase 120 (38-126) U/L Total Protein 7.0 (6.3-8.2) g/dL Albumin 4.2 (3.5-5.0) g/dL Calcium panel 09/25/20 Range/Units 01:30 Calcium 9.7 (8.4-10.2) mg/dL Albumin 4.2 (3.5-5.0) g/dL Pituitary panel 09/25/20 Range/Units 01:30 Sodium 140 (137-145) mmol/L Potassium 4.7 (3.5-5.1) mmol/L Chloride 106 (98-107) mmol/L Carbon Dioxide 24 (22-30) mmol/L BUN 69 H (9-20) mg/dL Creatinine 2.59 H (0.66-1.25) mg/dL Glucose 123 H (74-99) mg/dL Calcium 9.7 (8.4-10.2) mg/dL Adrenal panel 09/25/20 Range/Units 01:30 Sodium 140 (137-145) mmol/L Potassium 4.7 (3.5-5.1) mmol/L Chloride 106 (98-107) mmol/L Carbon Dioxide 24 (22-30) mmol/L BUN 69 H (9-20) mg/dL Creatinine 2.59 H (0.66-1.25) mg/dL Glucose 123 H (74-99) mg/dL Calcium 9.7 (8.4-10.2) mg/dL Total Bilirubin 0.6 (0.2-1.3) mg/dL AST 66 H (17-59) U/L ALT 66 H (4-49) U/L Alkaline Phosphatase 120 (38-126) U/L Total Protein 7.0 (6.3-8.2) g/dL Albumin 4.2 (3.5-5.0) g/dL Assessment and Plan Assessment: 1. Redness to bilateral lower extremities likely microvascular 2. Lower extremity edema 3. Shortness of breath likely secondary to acute on chronic systolic CHF exacerbation. 4. History of chronic kidney disease 5. History of atrial fibrillation status post pacemaker 6. History of COPD Plan: 1. Continue symptomatic and supportive care 2. Venous Doppler ultrasound reviewed, negative for DVT 3. Obtain arterial ultrasound study of bilateral lower extremities 4. Further recommendations to follow Thank you for this consultation, we will continue to follow The impression and plan of care has been dictated as directed. I performed a history and examination of this patient, discussed the same with the dictator. I agree with the dictator's note ,documented as a scribe. Any additional findings or plans will be noted.
[2020-09-25] MEDS: carvediloL 6.25 MG TAB PO SCH (16:52)
[2020-09-25] MEDS ORDERED: LOSARTAN 50 MG TAB PO STA (18:53)
[2020-09-25] MEDS ORDERED: LOSARTAN 25 MG TAB PO STA (18:57)
[2020-09-25] MEDS ORDERED: PRAVASTATIN SODIUM 20 MG TAB PO SCH (21:00)
[2020-09-25] MEDS ORDERED: ISOSORBIDE MONONITRATE ER 30 MG TAB.ER.24H PO SCH (21:00)
[2020-09-25] MEDS: FERROUS SULFATE 325 MG TAB PO SCH (21:16)
[2020-09-25] MEDS: LEVOTHYROXINE 88 MCG TAB PO SCH (21:16)
[2020-09-25] MEDS: HYDROmorphone 0.5 MG/0.5 ML SYRINGE IVP PRN (21:16)
[2020-09-25] MEDS: DOCUSATE 100 MG CAP PO SCH (21:16)
[2020-09-26 06:27] LABS: Glucose,Whole Blood 68 mg/dL (75-99)
[2020-09-26] MEDS: PANTOPRAZOLE 40 MG TABLET PO SCH (06:28)
[2020-09-26] MEDS: carvediloL 6.25 MG TAB PO SCH ×2 (06:28→18:08)
[2020-09-26] MEDS: FUROSEMIDE 10 MG/ML 4 ML VIAL IV SCH ×2 (06:28→18:08)
[2020-09-26 06:36] LABS: Glucose,Whole Blood 95 mg/dL (75-99)
[2020-09-26 07:37] LABS: Anisocytosis Slight; Basophils % (A) 1 %; Eosinophils % (A) 4 %; HCT 36.1 % (39.0-53.0); HGB 10.8 gm/dL (13.0-17.5); Hypochromasia Moderate; Lymphocytes # (A) 0.6 k/uL (1.0-4.8); Lymphocytes % (A) 6 %; MCH 28.1 pg (25.0-35.0); MCV 93.7 fL (80.0-100.0); Mean Platelet Volume 8.1; Monocytes % (A) 5 %; Neutrophils % (A) 83 %; Platelet Count 257 k/uL (150-450); RBC 3.86 m/uL (4.30-5.90); WBC 9.6 k/uL (3.8-10.6)
[2020-09-26 07:38] LABS: Basophils # (A) 0.1 k/uL (0-0.2); Eosinophils # (A) 0.4 k/uL (0-0.7); Monocytes # (A) 0.5 k/uL (0-1.0)
[2020-09-26 07:56] LABS: INR 1.1 (<1.2); Partial Thromboplastin Time 91.9 sec (22.0-30.0); Prothrombin Time 11.5 sec (9.0-12.0)
[2020-09-26 08:16] LABS: Albumin 3.6 g/dL (3.5-5.0); Calcium 8.8 mg/dL (8.4-10.2); Magnesium 2.6 mg/dL (1.6-2.3); Potassium 4.8 mmol/L (3.5-5.1); Total Bilirubin 0.5 mg/dL (0.2-1.3); Total Protein 6.2 g/dL (6.3-8.2)
[2020-09-26] MEDS: ALBUTEROL HFA INHALER INHALATION PRN ×2 (08:41→19:38)
[2020-09-26] MEDS: HEPARIN SOD,PORK IN 0.45% NACL 25,000 UNIT in 0.45% NACL 1 250ML.BAG IV SCH (09:00)
[2020-09-26] MEDS: LOSARTAN 50 MG TAB PO SCH (09:00)
[2020-09-26] MEDS: HYDROmorphone 0.5 MG/0.5 ML SYRINGE IVP PRN ×2 (09:08→18:09)
--- NOTE | 2020-09-26 09:44 | P.PN ---
Subjective Progress Note Date: 09/26/20 Sean Lin is an 80-year-old male patient who presented to the ER with complaints of increasing shortness of breath over the past few months. Patient also reports swelling to lower extremities. Patient has a past medical history of A. fib, heart failure, COPD, GERD, GI bleed, hypertension, thyroid disorder. BNP elevated at 42,400. Mildly elevated troponin 0.071 and 0.098. Patient's creatinine 2.59 and bun 69 this does appear on patient's baseline. Patient also elevated d-dimer 1.46. VQ scan ordered due to chronic kidney disease. At that time cardiology services will be consulted. Patient started on IV Lasix. Upon examination feet found cold to touch bilaterally right greater than left with swelling and erythema tender to touch. Will start patient on Rocephin for cellulitis. Will consult vascular surgery due to concerns of arterial disease. Will order venous Doppler to rule out DVT. This time patient denies chest pain. Patient does complain of shortness of breath. Patient denies nausea vomiting or diarrhea. Patient denies any urinary burning or frequency. On 09/26/2020 patient was seen and examined on the telemetry floor he is alert and oriented 3 in no apparent distress he is complaining of pain in both feet he is also complaining of shortness of breath with any activity, otherwise he denies any complaint. There is no fever or chills no headache or dizziness no chest pain, no palpitation no cough no nausea or vomiting no abdominal pain no diarrhea no blood in the stools no burning with urination no frequency or urgency and no hematuria, there is no weakness or numbness in any of the extremities no change in vision speech or gait. D-dimer was elevated at 1.46, patient underwent VQ scan that was low probability for pulmonary embolism, bilateral lower extremity Doppler is still pending, patient also had elevated troponin levels at 0.071, 0.098, 0.092 cardiology are consulted, echocardiogram done patient remains on IV heparin at this time, PTT is therapeutic at 91.9, patient has known history of chronic kidney disease at this time BUN is 74 creatinine 2.33 he was seen in the past by Dr. Rojas, Will place a consult for nephrology for follow-up. Objective - Vital Signs Vital signs: Vital Signs Temp 97.4 F L 09/26/20 00:00 Pulse 61 05/15/21 04:00 Resp 18 09/26/20 04:00 BP 182/72 09/26/20 04:00 Pulse Ox 99 09/26/20 04:00 Intake & Output 09/25/20 09/26/20 09/26/20 18:59 06:59 18:59 Intake Total 720 260 Output Total 750 575 Balance -30 -575 260 Weight 83.915 kg 83.3 kg Intake: Oral 720 260 Output: Urine 750 575 Other: # Voids 1 - Exam In general patient is alert and oriented 3 in no distress Head normocephalic and atraumatic Neck supple no JVD no goiter Lungs diminished bilaterally no crackles no wheezing Heart regular rate and rhythm S1-S2, no rub or gallop Abdomen is soft nontender nondistended positive bowel sounds no hepatosplenomegaly Extremities +3 pedal edema noted to right side. Left +1. Bilateral spread is noted to feet. Neuro no gross focal neurological deficit - Labs CBC & Chem 7: 09/26/20 07:18 09/26/20 07:18 Labs: Abnormal Lab Results - Last 24 Hours (Table) 09/25/20 09/25/20 09/26/20 Range/Units 10:22 16:06 06:14 RBC (4.30-5.90) m/uL Hgb (13.0-17.5) gm/dL Hct (39.0-53.0) % MCHC (31.0-37.0) g/dL RDW (11.5-15.5) % Neutrophils # (1.3-7.7) k/uL Lymphocytes # (1.0-4.8) k/uL APTT 59.5 H (22.0-30.0) sec Chloride (98-107) mmol/L Carbon Dioxide (22-30) mmol/L BUN (9-20) mg/dL Creatinine (0.66-1.25) mg/dL Glucose (74-99) mg/dL POC Glucose (mg/dL) 68 L (75-99) mg/dL Magnesium (1.6-2.3) mg/dL ALT (4-49) U/L Troponin I 0.092 H* (0.000-0.034) ng/mL Total Protein (6.3-8.2) g/dL 09/26/20 09/26/20 09/26/20 Range/Units 07:18 07:18 07:18 RBC 3.86 L (4.30-5.90) m/uL Hgb 10.8 L (13.0-17.5) gm/dL Hct 36.1 L (39.0-53.0) % MCHC 30.0 L (31.0-37.0) g/dL RDW 16.0 H (11.5-15.5) % Neutrophils # 8.0 H (1.3-7.7) k/uL Lymphocytes # 0.6 L (1.0-4.8) k/uL APTT 91.9 H (22.0-30.0) sec Chloride 108 H (98-107) mmol/L Carbon Dioxide 21 L (22-30) mmol/L BUN 74 H (9-20) mg/dL Creatinine 2.33 H (0.66-1.25) mg/dL Glucose 127 H (74-99) mg/dL POC Glucose (mg/dL) (75-99) mg/dL Magnesium 2.6 H (1.6-2.3) mg/dL ALT 56 H (4-49) U/L Troponin I (0.000-0.034) ng/mL Total Protein 6.2 L (6.3-8.2) g/dL Assessment and Plan Assessment: 1. Shortness breath secondary to acute on chronic systolic CHF exacerbation. BNP elevated at 43,000. Patient started on IV Lasix. Cardiomegaly with diffuse bilateral perihilar reticular opacities compatible with interstitial pulmonary disease. Cardiology services consulted 2-D echo ordered. 2. Elevated d-dimer. D-dimer 1.46. Venous Doppler ordered to rule out DVT. VQ scan ordered 3. Elevated troponins. Cardiology consult did. Patient started on heparin drip per cardiology 4. Cellulitis to lower extremities. She started on Rocephin. 5. Coolness noted to bilateral feet. Vascular surgery consulted 6. Chronic kidney disease stage III. Creatinine 2.5 and bun 69 this does appear on patient's baseline 7. 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 History of COPD DVT prophylaxis heparin drip. GI prophylaxis Protonix Cardiology and vascular surgery consulted Patient started on IV Lasix Heparin drip added for elevated troponin VQ scan ordered and was low probability for pulmonary embolism Patient on Rocephin for cellulitis Venous Doppler ordered, results are still pending
--- NOTE | 2020-09-26 14:08 | P.PN ---
Subjective HISTORY OF PRESENTING ILLNESS This is a pleasant 80-year-old male past medical history significant for chronic systolic heart failure with reduced ejection fraction, high degree AV block, sick sinus syndrome s/p Bi-ventricular PPM (09/2019), chronic systolic heart failure with reduced EF, valvular heart disease with mixed moderate aortic stenosis and moderate aortic regurgitation, mild mitral stenosis, chronic kidney disease, former nicotine dependence, paroxysmal atrial fibrillation. He currently follows in the office with Dr. Owusu. We have been asked to see in consultation for congestive heart failure. Patient presents to the emergency department with worsening shortness of breath, dyspnea on exertion, lower extremity edema and symptoms of orthopnea. Patient denies history of stroke or diabetes. He is a former smoker quit last year. BNP 43,400 (23,000 in 03/2020). Started on IV Lasix. Troponin 0.07, 0.09 (patient with chronically elevated troponin). Hypertensive on admission BP 180s/60s HR 60s, afebrile. 09/26 Patient seen and examined. Patient states he feels better in terms of his lower extremity edema and shortness breath. He has been having good diuresis. His ejection fraction is mildly decreased down from 35-40% to 30-35%. He does state that he had stopped all of his medications approximately 2 months ago secondary to having issues with diarrhea which she related to his medications. He also admits to continued lower extremity pain and discussed keeping legs elevated however he states this will cause them to be cold. Creatinine improved to 2.3 today. VQ scan negative REVIEW OF SYSTEMS At the time of my exam: CONSTITUTIONAL: Denies fever or chills. CARDIOVASCULAR: +shortness of breath, +orthopnea, +PND Denies chest pain, or palpitations. RESPIRATORY: Denies cough. GASTROINTESTINAL: Denies abdominal pain, diarrhea, constipation, nausea or vomiting. MUSCULOSKELETAL: Denies myalgias. NEUROLOGIC: Denies numbness, tingling, headacbe or weakness. ENDOCRINE: Denies fatigue, weight change, polydipsia or polyurina. GENITOURINARY: Denies burning, hematuria or urgency with micturation. HEMATOLOGIC: Denies history of anemia or bleeding. PHYSICAL EXAMINATION Vital signs reviewed CONSTITUTIONAL: No apparent distress. HEENT: Head is normocephalic. Pupils are equal, round. Sclerae anicteric. Mucous membranes of the mouth are moist. No JVD. No carotid bruit. CHEST EXAMINATION: Lungs are clear to auscultation. No chest wall tenderness is noted on palpation or with deep breathing. HEART EXAMINATION: Regular rate and rhythm. S1, S2 heard. No murmurs, gallops or rub. ABDOMEN: Soft, nontender. Positive bowel sounds. EXTREMITIES: 2+ peripheral pulses,4+ left pedal edema, 3+ bilateral lower extrem ity edema. and no calf tenderness. SKIN: Redness to left lower extremity NEUROLOGIC EXAMINATION: Patient is awake, alert and oriented x3. ASSESSMENT Acute on Chronic systolic heart failure with reduced ejection fraction EF 30-35% Elevated troponin, not indicative of acute coronary syndrome. No ischemia on EKG, no chest discomfort. Elevated D-dimer High degree AV block Sick sinus syndrome s/p Bi-ventricular PPM Valvular heart disease repeat echo shows moderate to severe aortic insufficien cy, mild aortic stenosis, mild mitral stenosis Chronic kidney disease Hypertension Paroxysmal atrial fibrillation -[id number] score 4 Medical noncompliance, not taking any of his medications for last 2 months secondary to diarrhea PLAN Patient does admit that he has stopped all his medications approximately 2 months ago secondary to diarrhea. Reason for decompensation appears medical noncompliance. Repeat echo shows mildly reduced ejection fraction 30-35%. Patient's creatinine is improving with diuresis. Continue with current regimen. Aortic insufficiency may improve with diuresis, control of blood pressure. Continue to monitor Objective - Vital Signs Vital signs: Vital Signs Temp 98.1 F 09/26/20 08:00 Pulse 66 09/26/20 08:00 Resp 16 09/26/20 08:00 BP 142/63 09/26/20 08:00 Pulse Ox 99 09/26/20 04:00 Intake & Output 09/25/20 09/26/20 09/26/20 18:59 06:59 18:59 Intake Total 720 880.721 Output Total 750 575 450 Balance -30 -575 430.721 Weight 83.915 kg 83.3 kg Intake: Intake, IV Titration 220.721 Amount Heparin Sod,Pork in 0.45% 220.721 NaCl 25,000 unit In 0.45 % NaCl 1 250ml.bag @ 11. 9168 UNITS/KG/HR 10 mls/ hr IV .Q24H [facility] Rx#: [id number] Oral 720 660 Output: Urine 750 575 450 Other: # Voids 1 - Labs CBC & Chem 7: 09/26/20 07:18 09/26/20 07:18 Labs: Abnormal Lab Results - Last 24 Hours (Table) 09/25/20 09/26/20 09/26/20 Range/Units 16:06 06:14 07:18 RBC (4.30-5.90) m/uL Hgb (13.0-17.5) gm/dL Hct (39.0-53.0) % MCHC (31.0-37.0) g/dL RDW (11.5-15.5) % Neutrophils # (1.3-7.7) k/uL Lymphocytes # (1.0-4.8) k/uL APTT 59.5 H (22.0-30.0) sec Chloride 108 H (98-107) mmol/L Carbon Dioxide 21 L (22-30) mmol/L BUN 74 H (9-20) mg/dL Creatinine 2.33 H (0.66-1.25) mg/dL Glucose 127 H (74-99) mg/dL POC Glucose (mg/dL) 68 L (75-99) mg/dL Magnesium 2.6 H (1.6-2.3) mg/dL ALT 56 H (4-49) U/L Total Protein 6.2 L (6.3-8.2) g/dL 09/26/20 09/26/20 Range/Units 07:18 07:18 RBC 3.86 L (4.30-5.90) m/uL Hgb 10.8 L (13.0-17.5) gm/dL Hct 36.1 L (39.0-53.0) % MCHC 30.0 L (31.0-37.0) g/dL RDW 16.0 H (11.5-15.5) % Neutrophils # 8.0 H (1.3-7.7) k/uL Lymphocytes # 0.6 L (1.0-4.8) k/uL APTT 91.9 H (22.0-30.0) sec Chloride (98-107) mmol/L Carbon Dioxide (22-30) mmol/L BUN (9-20) mg/dL Creatinine (0.66-1.25) mg/dL Glucose (74-99) mg/dL POC Glucose (mg/dL) (75-99) mg/dL Magnesium (1.6-2.3) mg/dL ALT (4-49) U/L Total Protein (6.3-8.2) g/dL
--- NOTE | 2020-09-26 19:45 | CONS ---
CONSULTATION DATE OF SERVICE: 09/26/2020 REASON FOR CONSULTATION: Lower extremity cellulitis. HISTORY OF PRESENT ILLNESS: The patient is an 80-year-old male presenting to the ER yesterday morning for evaluation of increasing shortness of breath. The patient's breathing has been getting worse for the last three weeks to a month. With progressive worsening of shortness of breath he presents to hospital. The patient denies having any chest pain. Did have a cough with occasional sputum production. Denies any URI symptoms. No fever, no chills. No nausea, no vomiting. No abdominal pain. Did have significant swelling to the lower extremity with occasional dull aching pain. No radiation. Currently does not have any open wound or blisters. With these symptoms the patient has been hospital any evaluated. On presentation the patient was afebrile and no fever has been recorded. Subsequently, the patient did have mild white count of 11.1. Subsequently white count normalized to 9.6. Kidney function is mildly elevated with a creatinine of 2.59 repeat is 2.3. Troponin was mildly elevated. Patient did have a chest x-ray with cardiomegaly and diffuse bilateral perihilar irregular opacities compatible with pulmonary edema. The patient is currently treated for acute exacerbation of congestive heart failure. He was noticed to have minimal erythema to the bilateral feet area with concern for possible cellulitis. Patient started on Rocephin. Infectious Disease was consulted for further management of antibiotic therapy. REVIEW OF SYSTEMS: Positive points have been mentioned in HPI. Rest of systems are negative. PAST MEDICAL HISTORY: Atrial fibrillation, COPD, heart failure with ( ) disease, hypertension, hypothyroidism, and hiatal hernia. PAST SURGICAL HISTORY: Adenoidectomy, pacemaker placement and tonsillectomy. SOCIAL HISTORY: Remote history of smoking. No drinking or drug use. FAMILY HISTORY: Daughter with a history of uterine and lung cancer. Father from prostate cancer. ALLERGIES: SULFA. MEDICATIONS: The patient is currently on Ventolin, Eliquis, Coreg, Rocephin 1 g daily. He is on Colace, iron sulfate, Lasix, Dilaudid, Synthroid, Cozaar, Protonix. PHYSICAL EXAMINATION: Blood pressure 142/63 with a pulse of 66, temperature 98.1. He is 99% on room air. General description is an elderly male up in the in no distress. No tachypnea or accessory muscles of respiration use. HEENT examination is slight pallor. No scleral icterus. Oral mucous membrane is dry. NECK: Trachea central. No thyromegaly. LUNGS: Unlabored breathing. A few coarse crackles bilaterally, no wheeze. HEART: S1, S2. Regular rate and rhythm. ABDOMEN: Soft, no tenderness. LOWER EXTREMITIES: With diffuse swelling. Minimal discoloration or erythema to the bilateral feet which are cold to touch. No warmth. No skin breakdown or drainage. NEUROLOGIC: Patient is awake, alert, oriented. Mood and affect normal. LABS: Hemoglobin is 10.8, white count 9.6, BUN of 74, creatinine is 2.33. Chest x-ray with pulmonary edema. DIAGNOSTIC IMPRESSION AND PLAN: Patient admitted to the hospital with shortness of breath, more likely related to the congestive heart failure exacerbation as the patient did has significant fluid overload, swelling in the legs, more likely from fluid overload. The patient did have slight area of discoloration to the feet. However, the feet are cold. Clinical suspicion low for secondary cellulitis in this patient with no fever or significant elevated white count. PLAN: 1. Antibiotic can be safely discontinued. 2. Continue with Lasix for treatment of his heart to left for Cardiology team. 3. Patient was offered [place] wrap to the leg. However, the patient was not able to tolerate because of the pain. Advised to keep his leg elevated as much as possible. Thank you for this consultation. Will follow the patient along with you. MMODL / IJN: [id number] /
[2020-09-26] MEDS: FERROUS SULFATE 325 MG TAB PO SCH (20:10)
[2020-09-26] MEDS: DOCUSATE 100 MG CAP PO SCH (20:10)
[2020-09-26] MEDS: APIXABAN 2.5 MG TABLET PO SCH (20:10)
[2020-09-26] MEDS: LEVOTHYROXINE 88 MCG TAB PO SCH (20:11)
[2020-09-27] MEDS: HYDROmorphone 0.5 MG/0.5 ML SYRINGE IVP PRN ×2 (06:09→10:00)
[2020-09-27] MEDS: FUROSEMIDE 10 MG/ML 4 ML VIAL IV SCH ×2 (06:10→18:19)
[2020-09-27] MEDS: PANTOPRAZOLE 40 MG TABLET PO SCH (06:10)
[2020-09-27] MEDS: carvediloL 6.25 MG TAB PO SCH ×2 (06:10→18:19)
[2020-09-27 08:06] LABS: Anisocytosis Slight; Basophils % (A) 0 %; Eosinophils # (A) 0.5 k/uL (0-0.7); Eosinophils % (A) 6 %; HCT 29.5 % (39.0-53.0); HGB 9.7 gm/dL (13.0-17.5); Hypochromasia Slight; Lymphocytes # (A) 0.3 k/uL (1.0-4.8); Lymphocytes % (A) 4 %; MCH 30.3 pg (25.0-35.0); MCHC 32.9 g/dL (31.0-37.0); Mean Platelet Volume 8.3; Monocytes # (A) 0.7 k/uL (0-1.0); Monocytes % (A) 8 %; Neutrophils # (A) 6.8 k/uL (1.3-7.7); Neutrophils % (A) 80 %; Platelet Count 233 k/uL (150-450); RBC 3.21 m/uL (4.30-5.90); RDW 16.1 % (11.5-15.5); WBC 8.4 k/uL (3.8-10.6)
[2020-09-27 08:08] LABS: Potassium 5.4 mmol/L (3.5-5.1)
[2020-09-27 08:09] LABS: Albumin 3.1 g/dL (3.5-5.0); Calcium 8.4 mg/dL (8.4-10.2); Total Bilirubin 0.3 mg/dL (0.2-1.3); Total Protein 5.5 g/dL (6.3-8.2)
[2020-09-27] MEDS: ALBUTEROL HFA INHALER INHALATION PRN (08:23)
[2020-09-27] MEDS: APIXABAN 2.5 MG TABLET PO SCH ×2 (10:01→20:15)
[2020-09-27] MEDS: LOSARTAN 50 MG TAB PO SCH (10:01)
--- NOTE | 2020-09-27 11:26 | P.PN ---
Subjective Progress Note Date: 09/27/20 Sean Lin is an 80-year-old male patient who presented to the ER with complaints of increasing shortness of breath over the past few months. Patient also reports swelling to lower extremities. Patient has a past medical history of A. fib, heart failure, COPD, GERD, GI bleed, hypertension, thyroid disorder. BNP elevated at 42,400. Mildly elevated troponin 0.071 and 0.098. Patient's creatinine 2.59 and bun 69 this does appear on patient's baseline. Patient also elevated d-dimer 1.46. VQ scan ordered due to chronic kidney disease. At that time cardiology services will be consulted. Patient started on IV Lasix. Upon examination feet found cold to touch bilaterally right greater than left with swelling and erythema tender to touch. Will start patient on Rocephin for cellulitis. Will consult vascular surgery due to concerns of arterial disease. Will order venous Doppler to rule out DVT. This time patient denies chest pain. Patient does complain of shortness of breath. Patient denies nausea vomiting or diarrhea. Patient denies any urinary burning or frequency. On 09/26/2020 patient was seen and examined on the telemetry floor he is alert and oriented 3 in no apparent distress he is complaining of pain in both feet he is also complaining of shortness of breath with any activity, otherwise he denies any complaint. There is no fever or chills no headache or dizziness no chest pain, no palpitation no cough no nausea or vomiting no abdominal pain no diarrhea no blood in the stools no burning with urination no frequency or urgency and no hematuria, there is no weakness or numbness in any of the extremities no change in vision speech or gait. D-dimer was elevated at 1.46, patient underwent VQ scan that was low probability for pulmonary embolism, bilateral lower extremity Doppler is still pending, patient also had elevated troponin levels at 0.071, 0.098, 0.092 cardiology are consulted, echocardiogram done patient remains on IV heparin at this time, PTT is therapeutic at 91.9, patient has known history of chronic kidney disease at this time BUN is 74 creatinine 2.33 he was seen in the past by Dr. Rojas, Will place a consult for nephrology for follow-up. On 09/27/2020 patient is alert and oriented 3 resting comfortably in bed. Patient does report improvement with overall shortness of breath. Patient remains on IV Lasix. He was started on eliquis per cardiology services for proximal atrial fibrillation. Arterial ultrasound of the lower extremity is ordered per vascular surgery. At this time patient denies any chest pain or shortness of breath. Patient denies nausea vomiting or diarrhea. Patient denies any urinary burning or frequency. Cardiology, nephrology, infectious disease and vascular surgery are following Objective - Vital Signs Vital signs: Vital Signs Temp 98.1 F 09/26/20 20:00 Pulse 61 09/27/20 04:00 Resp 18 09/27/20 04:00 BP 163/70 09/27/20 04:00 Pulse Ox 98 09/27/20 04:00 Intake & Output 09/26/20 09/27/20 09/27/20 18:59 06:59 18:59 Intake Total 995.721 450 Output Total 450 650 Balance 545.721 -650 450 Weight 83 kg Intake: Intake, IV Titration 220.721 Amount Heparin Sod,Pork in 0.45% 220.721 NaCl 25,000 unit In 0.45 % NaCl 1 250ml.bag @ 11. 9168 UNITS/KG/HR 10 mls/ hr IV .Q24H [facility] Rx#: [id number] Oral 775 450 Output: Urine 450 650 Other: # Voids 1 - Exam In general patient is alert and oriented 3 in no distress Head normocephalic and atraumatic Neck supple no JVD no goiter Lungs diminished bilaterally no crackles no wheezing Heart regular rate and rhythm S1-S2, no rub or gallop Abdomen is soft nontender nondistended positive bowel sounds no hepatosplenomegaly Extremities +3 pedal edema noted to right side. Left +1. Bilateral spread is noted to feet. Neuro no gross focal neurological deficit - Labs CBC & Chem 7: 09/27/20 07:05 09/27/20 07:05 Labs: Abnormal Lab Results - Last 24 Hours (Table) 09/27/20 09/27/20 Range/Units 07:05 07:05 RBC 3.21 L (4.30-5.90) m/uL Hgb 9.7 L (13.0-17.5) gm/dL Hct 29.5 L (39.0-53.0) % RDW 16.1 H (11.5-15.5) % Lymphocytes # 0.3 L (1.0-4.8) k/uL Potassium 5.4 H (3.5-5.1) mmol/L Chloride 110 H (98-107) mmol/L Carbon Dioxide 21 L (22-30) mmol/L BUN 81 H (9-20) mg/dL Creatinine 2.51 H (0.66-1.25) mg/dL Total Protein 5.5 L (6.3-8.2) g/dL Albumin 3.1 L (3.5-5.0) g/dL Assessment and Plan Assessment: 1. Shortness breath secondary to acute on chronic systolic CHF exacerbation. BNP elevated at 43,000. Patient started on IV Lasix. Cardiomegaly with diffuse bilateral perihilar reticular opacities compatible with interstitial pulmonary disease. Cardiology services consulted 2-D echo ordered. 2. Elevated d-dimer. D-dimer 1.46. Venous Doppler ordered to rule out DVT. VQ scan completed showing low probability of PE 3. Elevated troponins. Cardiology services following. 4. Cellulitis to lower extremities. She started on Rocephin. Infectious disease consulted IV antibiotics DC'd 5. Coolness noted to bilateral feet. Vascular surgery consulted. Arterial ultrasound of lower extremity is ordered 6. Chronic kidney disease stage III. Creatinine 2.5 and bun 69 this does appear on patient's baseline. Nephrology services consulted 7. 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 History of COPD 9. Paroxysmal atrial fibrillation. Patient started on eliquis per cardiology services DVT prophylaxis heparin drip. GI prophylaxis Protonix Cardiology, nephrology, infectious disease and vascular surgery consulted Patient started on IV Lasix Arterial ultrasound ordered
--- NOTE | 2020-09-27 12:58 | CONS ---
CONSULTATION REASON FOR CONSULT: Renal failure. HISTORY OF PRESENT ILLNESS: The patient is an 80-year-old male with history of chronic kidney disease, NKF stage 4 with baseline creatinine about 2-2.4 mg/dL secondary to nephrosclerosis. He was admitted to the hospital with complaints of increasing shortness of breath and worsening lower extremity edema. The patient has underlying congestive heart failure, mostly systolic with ejection fraction 30-35%. He has severely dilated left atrium. He is currently being diuresed and states that he is feeling better. Serum creatinine was 2.5 on initial admission, decreased to 2.3, back up to 2.5 today. Weight has been about the same, patient is down by 0.3 kg from yesterday. A 24 hour urine documented at 1.3 L. Currently maintained on IV Lasix 40 mg q.12 hours. Blood pressure is on the higher side. Home diuretics included Demadex 20 mg. I do see Lasix as well. I am not sure what patient was taking. PAST MEDICAL HISTORY: CKD stage 4, CHF, cardiomyopathy, atrial fibrillation, gastroesophageal reflux disease, hypertension, hypothyroidism, hiatal hernia, lower extremity ulcers. PAST SURGICAL HISTORY: Adenoidectomy, pacemaker placement, tonsillectomy, hemorrhoidectomy, EGD. SOCIAL HISTORY: Patient is a former smoker. No history of drug abuse or alcohol abuse. MEDICATIONS: Medications at home prior to admission included Cozaar, Colace, Synthroid, multivitamins, zyloprim, Lasix, Demadex, Coreg, iron. ALLERGIES: Include SULFA. REVIEW OF SYSTEMS: As per HPI. Other systems negative. EXAMINATION: Patient is comfortable, awake, not in any acute distress. Blood pressure is 163/70, heart rate 61 per minute, he is afebrile. Examination of the heart S1, S2. Examination of the lungs, bilateral breath sounds are heard. Decreased breath sounds at bases, basal crackles heard. Abdomen is soft, obese. Examination of lower extremities shows about 3+ edema, worse in the feet with chronic skin changes with some erythema of the skin on the feet noted as well. PULVERIZER TENDER exam grossly intact. LAB: Show sodium 140, potassium 5.4, chloride 110, CO2 is 21, BUN 81, creatinine 2.5, hemoglobin 9.7 g/dL. ASSESSMENT: 1. 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 Baseline creatinine 2- 2.4 mg/dL. 2. Congestive heart failure, acute on top of chronic, mainly systolic. 3. Severe cardiomyopathy, ejection fraction 30-35%. 4. Severely dilated left atrium. 5. Mild hyperkalemia associated with acute kidney injury, use of angiotensin receptor blockers. 6. Lower extremity wounds. Infectious Disease has been consulted. PLAN: Continue to diurese patient. He is advised regarding some degree of sodium restriction. Repeat labs in a.m. Check daily weights. Add Aranesp for anemia. Avoid hypotension. Can increase Coreg if blood pressure remains elevated. Thank you for this consultation. Will continue to follow the patient with you during his hospitalization. MMODL / IJN: [id number] /
--- NOTE | 2020-09-27 14:03 | P.PN ---
Subjective HISTORY OF PRESENTING ILLNESS This is a pleasant 80-year-old male past medical history significant for chronic systolic heart failure with reduced ejection fraction, high degree AV block, sick sinus syndrome s/p Bi-ventricular PPM (09/2019), chronic systolic heart failure with reduced EF, valvular heart disease with mixed moderate aortic stenosis and moderate aortic regurgitation, mild mitral stenosis, chronic kidney disease, former nicotine dependence, paroxysmal atrial fibrillation. He currently follows in the office with Dr. Owusu. We have been asked to see in consultation for congestive heart failure. Patient presents to the emergency department with worsening shortness of breath, dyspnea on exertion, lower extremity edema and symptoms of orthopnea. Patient denies history of stroke or diabetes. He is a former smoker quit last year. BNP 43,400 (23,000 in 03/2020). Started on IV Lasix. Troponin 0.07, 0.09 (patient with chronically elevated troponin). Hypertensive on admission BP 180s/60s HR 60s, afebrile. 09/26 Patient seen and examined. Patient states he feels better in terms of his lower extremity edema and shortness breath. He has been having good diuresis. His ejection fraction is mildly decreased down from 35-40% to 30-35%. He does state that he had stopped all of his medications approximately 2 months ago secondary to having issues with diarrhea which she related to his medications. He also admits to continued lower extremity pain and discussed keeping legs elevated however he states this will cause them to be cold. Creatinine improved to 2.3 today. VQ scan negative 09/27 Patient seen and examined. He admits his shortness breath has predominantly improved however still does have extensive lower extremity edema and pain in his feet with feet discoloration. He will not allow anyone to wrap his feet, does not like keeping his legs elevated. Hemoglobin mildly decreased to 9.7, potassium mildly increased at 5.4, creatinine 2.5. His losartan was started yesterday. REVIEW OF SYSTEMS At the time of my exam: CONSTITUTIONAL: Denies fever or chills. CARDIOVASCULAR: +shortness of breath, +orthopnea, +PND Denies chest pain, or palpitations. RESPIRATORY: Denies cough. GASTROINTESTINAL: Denies abdominal pain, diarrhea, constipation, nausea or vomiting. MUSCULOSKELETAL: Denies myalgias. NEUROLOGIC: Denies numbness, tingling, headacbe or weakness. ENDOCRINE: Denies fatigue, weight change, polydipsia or polyurina. GENITOURINARY: Denies burning, hematuria or urgency with micturation. HEMATOLOGIC: Denies history of anemia or bleeding. PHYSICAL EXAMINATION Vital signs reviewed CONSTITUTIONAL: No apparent distress. HEENT: Head is normocephalic. Pupils are equal, round. Sclerae anicteric. Mucous membranes of the mouth are moist. No JVD. No carotid bruit. CHEST EXAMINATION: Lungs are clear to auscultation. No chest wall tenderness is noted on palpation or with deep breathing. HEART EXAMINATION: Regular rate and rhythm. S1, S2 heard. No murmurs, gallops or rub. ABDOMEN: Soft, nontender. Positive bowel sounds. EXTREMITIES: 2+ peripheral pulses,4+ left pedal edema, 3+ bilateral lower ex tremity edema. and no calf tenderness. SKIN: Redness to left lower extremity NEUROLOGIC EXAMINATION: Patient is awake, alert and oriented x3. ASSESSMENT Acute on Chronic systolic heart failure with reduced ejection fraction EF 30-35% Elevated troponin, not indicative of acute coronary syndrome. No ischemia on EKG, no chest discomfort. Elevated D-dimer High degree AV block Sick sinus syndrome s/p Bi-ventricular PPM Valvular heart disease repeat echo shows moderate to severe aortic insuffi ciency, mild aortic stenosis, mild mitral stenosis Chronic kidney disease Hypertension Paroxysmal atrial fibrillation -[id number] score 4 Medical noncompliance, not taking any of his medications for last 2 months secondary to diarrhea PLAN Patient does admit that he has stopped all his medications approximately 2 months ago secondary to diarrhea. Reason for decompensation appears medical noncompliance. Repeat echo shows mildly reduced ejection fraction 30-35%. Patient's creatinine predominantly at baseline, mildly increased today. Admits to good urine outpt with current regimen and continue with current regimen. Aortic insufficiency may improve with diuresis, control of blood pressure. Continue to monitor Objective - Vital Signs Vital signs: Vital Signs Temp 98 F 09/27/20 08:00 Pulse 60 09/27/20 08:00 Resp 18 09/27/20 08:00 BP 148/65 09/27/20 08:00 Pulse Ox 96 09/27/20 08:00 Intake & Output 09/26/20 09/27/20 09/27/20 18:59 06:59 18:59 Intake Total 995.721 850 Output Total 450 650 Balance 545.721 -650 850 Weight 83 kg Intake: Intake, IV Titration 220.721 Amount Heparin Sod,Pork in 0.45% 220.721 NaCl 25,000 unit In 0.45 % NaCl 1 250ml.bag @ 11. 9168 UNITS/KG/HR 10 mls/ hr IV .Q24H [facility] Rx#: [id number] Oral 775 850 Output: Urine 450 650 Other: # Voids 1 - Labs CBC & Chem 7: 09/27/20 07:05 09/27/20 07:05 Labs: Abnormal Lab Results - Last 24 Hours (Table) 09/27/20 09/27/20 Range/Units 07:05 07:05 RBC 3.21 L (4.30-5.90) m/uL Hgb 9.7 L (13.0-17.5) gm/dL Hct 29.5 L (39.0-53.0) % RDW 16.1 H (11.5-15.5) % Lymphocytes # 0.3 L (1.0-4.8) k/uL Potassium 5.4 H (3.5-5.1) mmol/L Chloride 110 H (98-107) mmol/L Carbon Dioxide 21 L (22-30) mmol/L BUN 81 H (9-20) mg/dL Creatinine 2.51 H (0.66-1.25) mg/dL Total Protein 5.5 L (6.3-8.2) g/dL Albumin 3.1 L (3.5-5.0) g/dL
[2020-09-27] MEDS: DARBEPOETIN ALFA 40 MCG/0.4 ML SYRINGE SQ SCH (18:56)
--- NOTE | 2020-09-27 19:41 | PN ---
PROGRESS NOTE DATE OF SERVICE: 09/27/2020 REASON FOR FOLLOWUP: Bilateral lower extremity swelling and question of cellulitis. INTERVAL HISTORY: Patient is afebrile. The patient is breathing slightly comfortably today. The patient denies having any chest pain. No shortness of breath or cough. Still has significant swelling to the leg, especially the feet area. No open blisters or any drainage. PHYSICAL EXAMINATION: Blood pressure 154/72 with a pulse of 80, temperature 98.8, he is 100% on room air. General description is an elderly male up in the bed in no distress. Respiratory system: Unlabored breathing. Decreased intensity of breath sounds in the bases. No wheeze. Heart S1, S2. Regular rate and rhythm. Abdomen soft, no tenderness. The legs are significantly swollen with more swelling to the feet. No open wound or any drainage. LABS: Hemoglobin is 9.7, white count 8.4, BUN of 81, creatinine is 2.51. DIAGNOSTIC IMPRESSION AND PLAN: Patient admitted to the hospital with shortness of breath, more likely due to the acute congestive heart failure exacerbation clinically not behaving as pneumonia with significant swelling over the legs. No significant cellulitis. Afebrile, normal white count. Antibiotic can be safely discontinued. Continue supportive care. MMODL / IJN: [id number] /
[2020-09-27] MEDS: LEVOTHYROXINE 88 MCG TAB PO SCH (20:15)
[2020-09-27] MEDS: DOCUSATE 100 MG CAP PO SCH (20:15)
[2020-09-27] MEDS: FERROUS SULFATE 325 MG TAB PO SCH (20:15)
[2020-09-28] MEDS: HYDROmorphone 0.5 MG/0.5 ML SYRINGE IVP PRN ×2 (03:27→18:12)
[2020-09-28] MEDS: FUROSEMIDE 10 MG/ML 4 ML VIAL IV SCH ×2 (06:14→18:12)
[2020-09-28] MEDS: carvediloL 6.25 MG TAB PO SCH ×2 (06:14→18:12)
[2020-09-28] MEDS: PANTOPRAZOLE 40 MG TABLET PO SCH (06:14)
[2020-09-28] MEDS: ALBUTEROL HFA INHALER INHALATION PRN ×3 (08:17→20:50)
[2020-09-28 08:19] LABS: Albumin 3.6 g/dL (3.5-5.0); Anisocytosis Slight; Basophils % (A) 0 %; Eosinophils # (A) 0.6 k/uL (0-0.7); Eosinophils % (A) 6 %; HCT 34.1 % (39.0-53.0); HGB 10.9 gm/dL (13.0-17.5); Hypochromasia Slight; Lymphocytes # (A) 0.5 k/uL (1.0-4.8); Lymphocytes % (A) 5 %; MCH 29.5 pg (25.0-35.0); MCHC 31.8 g/dL (31.0-37.0); MCV 92.8 fL (80.0-100.0); Mean Platelet Volume 7.9; Monocytes # (A) 0.6 k/uL (0-1.0); Monocytes % (A) 6 %; Neutrophils # (A) 7.4 k/uL (1.3-7.7); Neutrophils % (A) 81 %; Platelet Count 262 k/uL (150-450); Potassium 5.4 mmol/L (3.5-5.1); RBC 3.68 m/uL (4.30-5.90); RDW 16.2 % (11.5-15.5); Total Bilirubin 0.3 mg/dL (0.2-1.3); Total Protein 6.2 g/dL (6.3-8.2); WBC 9.1 k/uL (3.8-10.6)
[2020-09-28] MEDS: LOSARTAN 25 MG TAB PO SCH (09:47)
[2020-09-28] MEDS: APIXABAN 2.5 MG TABLET PO SCH ×2 (09:47→20:22)
--- NOTE | 2020-09-28 10:40 | P.PN ---
Subjective Progress Note Date: 09/28/20 Principal diagnosis: Lower extremity color changes Patient seen and examined sitting up at the bedside with his feet dependent. Bilateral lower extremities with redness and +2 edema. He complaints of pain to his feet and toes, mild discomfort in his lower extremities he said feels like tightness. He has some mild shortness of breath. Cardiology is following per congestive heart failure exacerbation due to medical noncompliance. Recent echocardiogram shows an EF of 30-35%. Arterial Doppler studies of bilateral lower extremities SYEDA on the right is 0.50, left 0.54. Objective - Vital Signs Vital signs: Vital Signs Temp 97.9 F 09/27/20 20:00 Pulse 60 09/28/20 03:34 Resp 18 09/28/20 03:34 BP 165/71 09/28/20 03:34 Pulse Ox 95 09/28/20 03:34 Intake & Output 09/27/20 09/28/20 09/28/20 18:59 06:59 18:59 Intake Total 1090 240 Output Total 450 400 570 Balance 640 -400 -330 Weight 87.5 kg Intake: Oral 1090 240 Output: Urine 450 400 570 Other: # Voids 1 - Exam General appearance: The patient is alert, oriented, in no acute distress. HET: Head is normocephalic and atraumatic. Neck: Supple without lymphadenopathy. Trachea midline. Extremities: Bilateral feet with +2 pitting edema, redness to the dorsal aspect of feet and toes. Tender to palpation especially in his toes. Bilateral multiphasic posterior tibialis and dorsalis pedis Doppler signal. Neurological: No focal deficits. Strength and sensation are grossly intact. - Labs CBC & Chem 7: 09/28/20 07:14 09/28/20 07:14 Labs: Abnormal Lab Results - Last 24 Hours (Table) 09/28/20 09/28/20 Range/Units 07:14 07:14 RBC 3.68 L (4.30-5.90) m/uL Hgb 10.9 L (13.0-17.5) gm/dL Hct 34.1 L (39.0-53.0) % RDW 16.2 H (11.5-15.5) % Lymphocytes # 0.5 L (1.0-4.8) k/uL Potassium 5.4 H (3.5-5.1) mmol/L BUN 82 H (9-20) mg/dL Creatinine 2.89 H (0.66-1.25) mg/dL Glucose 100 H (74-99) mg/dL Total Protein 6.2 L (6.3-8.2) g/dL Assessment and Plan Assessment: 1. Redness to bilateral lower extremities likely microvascular 2. Lower extremity edema 3. Shortness of breath likely secondary to acute on chronic systolic CHF exacerbation. 4. History of chronic kidney disease 5. History of atrial fibrillation status post pacemaker 6. History of COPD Plan: 1. Continue symptomatic and supportive care 2. Venous Doppler ultrasound reviewed, negative for DVT 3. Arterial ultrasound study reviewed, SYEDA 0.50 on right and 0.54 and left 4. Recommend elevation of lower extremities and compression stockings or Chano wrap to bilateral lower extremities to help with swelling. Patient is refusing and states he cannot have anything on his lower extremities. 5. Recommend outpatient follow-up with vascular surgery Thank you for this consultation, we will continue to follow The impression and plan of care has been dictated as directed. Dr. Red I performed a history and examination of this patient, discussed the same with the dictator. I agree with the dictator's note ,documented as a scribe. Any additional findings or plans will be noted.
--- NOTE | 2020-09-28 11:16 | PN ---
PROGRESS NOTE Patient is seen for followup for acute kidney injury on top of chronic kidney disease. He was admitted with fluid overload and is currently being diuresed. The patient states that his breathing has improved. However, his edema is about the same. PHYSICAL EXAMINATION: On examination today, blood pressure is 165/71, heart rate 60 per minute. He is afebrile. O2 sats 98% to 95% on room air. EXAMINATION OF THE HEART: S1, S2. EXAMINATION OF LUNGS: Decreased breath sounds at bases. No crackles or wheezing is heard. ABDOMEN: Soft, obese. Examination of lower extremities shows chronic skin changes. Edema is about the same, 2 to 3+ bilaterally, worse in the feet. DIE CASTING SUPERVISOR exam grossly intact. LABS: Labs show sodium 141, potassium 5.4, chloride 107, BUN 82, creatinine 2.89, hemoglobin 10.9 g/dL. ASSESSMENT: 1. Acute kidney injury mostly cardiorenal, currently being diuresed. Blood pressure is not low. Maintained on Lasix which I will continue at the current dose. 2. Hyperkalemia associated with acute kidney injury and use of angiotensin receptor blockers. I will decrease the dose of Cozaar to 25 mg daily. 3. Congestive heart failure, acute on top of chronic, mostly systolic. 4. Cardiomyopathy, ejection fraction 30% to 35%. 5. Severely dilated left atrium. 6. Lower extremity wounds. 7. Generalized debility. 8. History of noncompliance. PLAN: Continue current dose of Lasix. Decrease Cozaar to 25 mg daily given the hyperkalemia. The patient is advised regarding salt and fluid restriction, particularly as outpatient. MMODL / IJN: [id number] /
--- NOTE | 2020-09-28 12:54 | PN ---
PROGRESS NOTE DATE OF SERVICE: 09/28/2020 REASON FOR FOLLOWUP: Lower extremity bilateral feet swelling with question of cellulitis. INTERVAL HISTORY: The patient is currently afebrile. Patient is still complaining of pain to bilateral feet area, did have significant swelling, minimal redness, no drainage. The patient denies having any chest pain. Breathing has improved. No abdominal pain or diarrhea. PHYSICAL EXAMINATION: Blood pressure 134/60 with a pulse of 60, temperature 98.1. He is 96% on room air. General description is an elderly male lying in bed in no distress. RESPIRATORY SYSTEM: Unlabored breathing, clear to auscultation anteriorly. HEART: S1, S2. Regular rate and rhythm. ABDOMEN: Soft, no tenderness. LEGS: With 1+ edema. However, the patient did have significant swelling, significant warm though. LABS: Hemoglobin 10.9, white count 9.1, BUN of 82, creatinine is 2.89. DIAGNOSTIC IMPRESSION AND PLAN: Patient with bilateral feet swelling, likely from fluid overload. Clinically not behaving as a cellulitis. May benefit from elevation of his legs or mild compression. Continue supportive care. MMODL / IJN: [id number] /
--- NOTE | 2020-09-28 13:17 | P.PN ---
Subjective This is a pleasant 80-year-old male past medical history significant for chronic systolic heart failure with reduced ejection fraction, high degree AV block, sick sinus syndrome s/p Bi-ventricular PPM (09/2019), chronic systolic heart failure with reduced EF, valvular heart disease with mixed moderate aortic stenosis and moderate aortic regurgitation, mild mitral stenosis, chronic kidney disease, former nicotine dependence, paroxysmal atrial fibrillation. He currently follows in the office with Dr. Owusu. We have been asked to see in consultation for congestive heart failure. Patient presents to the emergency department with worsening shortness of breath, dyspnea on exertion, lower extremity edema and symptoms of orthopnea. Patient denies history of stroke or diabetes. He is a former smoker quit last year. BNP 43,400 (23,000 in 03/2020). Started on IV Lasix. Troponin 0.07, 0.09 (patient with chronically elevated troponin). Hypertensive on admission BP 180s/60s HR 60s, afebrile. 09/28/2020 Patient is a 89 examined sitting up in bed in no acute distress. He is complaining of significant lower extremity discomfort. He denies symptoms of chest pain, shortness of breath, dizziness or palpitations. Blood pressure 165/71 heart rate 68 afebrile maintaining oxygen saturation on room air. Laboratory data reviewed, WBC 9.1, hemoglobin 10.9, platelets 262, sodium 141, potassium 5.4 and creatinine 2.89. Currently maintained on losartan 25 mg daily, Lasix 40 mg IV twice a day, carvedilol 12.5 mg twice a day and Eliquis 2.5 mg twice a day. GENERAL: Well-appearing, well-nourished and in no acute distress. NECK: Supple without JVD or thyromegaly. LUNGS: Breath sounds clear to auscultation bilaterally. Respiration equal and u nlabored. No wheezes, rales or rhonchi. HEART: Regular rate and rhythm with systolic ejection murmur at the base, no rubs or gallops. S1 and S2 heard. EXTREMITIES: Normal range of motion, 2+ bilateral lower extremity pitting edema. No clubbing or cyanosis. Peripheral pulses intact. ASSESSMENT Acute on chronic systolic heart failure, ejection fraction 30-35% Elevated troponin, not related to ACS Sick sinus syndrome status post permanent pacemaker implantation Valvular heart disease Chronic persistent atrial fibrillation on long-term anticoagulation Hypertension Chronic kidney disease History of noncompliance PLAN Continue IV diuresis. Document accurate intake and output along with daily weights. Nephrology ordered losartan to start today. Nurse Practitioner note has been reviewed, I agree with a documented findings and plan of care. Patient was seen and examined. Objective - Vital Signs Vital signs: Vital Signs Temp 97.9 F 09/27/20 20:00 Pulse 60 09/28/20 03:34 Resp 18 09/28/20 03:34 BP 165/71 09/28/20 03:34 Pulse Ox 95 09/28/20 03:34 Intake & Output 09/27/20 09/28/20 09/28/20 18:59 06:59 18:59 Intake Total 1090 240 Output Total 450 400 570 Balance 640 -400 -330 Weight 87.5 kg Intake: Oral 1090 240 Output: Urine 450 400 570 Other: # Voids 1 - Labs CBC & Chem 7: 09/28/20 07:14 09/28/20 07:14 Labs: Abnormal Lab Results - Last 24 Hours (Table) 09/28/20 09/28/20 Range/Units 07:14 07:14 RBC 3.68 L (4.30-5.90) m/uL Hgb 10.9 L (13.0-17.5) gm/dL Hct 34.1 L (39.0-53.0) % RDW 16.2 H (11.5-15.5) % Lymphocytes # 0.5 L (1.0-4.8) k/uL Potassium 5.4 H (3.5-5.1) mmol/L BUN 82 H (9-20) mg/dL Creatinine 2.89 H (0.66-1.25) mg/dL Glucose 100 H (74-99) mg/dL Total Protein 6.2 L (6.3-8.2) g/dL
--- NOTE | 2020-09-28 18:21 | XR ---
EXAMINATION TYPE: XR chest 2V DATE OF EXAM: 09/28/2020 COMPARISON: Chest x-ray 09/25/2020 HISTORY: Congestive heart failure TECHNIQUE: Frontal and lateral views of the chest are obtained. FINDINGS: There is persistent basilar density, this blunting of the posterior costophrenic angles.. The cardiac silhouette size is stable and enlarged. Prominent lung lines again noted. The osseous s tructures are intact. There is a generator in left pectoral region, leads are present within the righ t atrium and ventricle. IMPRESSION: Findings are similar to prior exam. Cardiomegaly, small effusions. Correlate for underly ing COPD.
[2020-09-28] MEDS: DOCUSATE 100 MG CAP PO SCH (20:22)
[2020-09-28] MEDS: LEVOTHYROXINE 88 MCG TAB PO SCH (20:22)
[2020-09-28] MEDS: FERROUS SULFATE 325 MG TAB PO SCH (20:22)
[2020-09-29] MEDS: FUROSEMIDE 10 MG/ML 4 ML VIAL IV SCH (06:43)
[2020-09-29] MEDS: carvediloL 6.25 MG TAB PO SCH ×2 (06:43→17:08)
[2020-09-29] MEDS: PANTOPRAZOLE 40 MG TABLET PO SCH (06:46)
[2020-09-29] MEDS: ALBUTEROL HFA INHALER INHALATION PRN ×4 (07:51→20:22)
[2020-09-29] MEDS: LOSARTAN 25 MG TAB PO SCH (08:53)
[2020-09-29] MEDS: APIXABAN 2.5 MG TABLET PO SCH ×2 (08:53→19:50)
[2020-09-29 09:26] LABS: Calcium 9.1 mg/dL (8.4-10.2); Potassium 5.8 mmol/L (3.5-5.1)
--- NOTE | 2020-09-29 10:00 | P.PN ---
Subjective Progress Note Date: 09/28/20 Sean Lin is an 80-year-old male patient who presented to the ER with complaints of increasing shortness of breath over the past few months. Patient also reports swelling to lower extremities. Patient has a past medical history of A. fib, heart failure, COPD, GERD, GI bleed, hypertension, thyroid disorder. BNP elevated at 42,400. Mildly elevated troponin 0.071 and 0.098. Patient's creatinine 2.59 and bun 69 this does appear on patient's baseline. Patient also elevated d-dimer 1.46. VQ scan ordered due to chronic kidney disease. At that time cardiology services will be consulted. Patient started on IV Lasix. Upon examination feet found cold to touch bilaterally right greater than left with swelling and erythema tender to touch. Will start patient on Rocephin for cellulitis. Will consult vascular surgery due to concerns of arterial disease. Will order venous Doppler to rule out DVT. This time patient denies chest pain. Patient does complain of shortness of breath. Patient denies nausea vomiting or diarrhea. Patient denies any urinary burning or frequency. On 09/26/2020 patient was seen and examined on the telemetry floor he is alert and oriented 3 in no apparent distress he is complaining of pain in both feet he is also complaining of shortness of breath with any activity, otherwise he denies any complaint. There is no fever or chills no headache or dizziness no chest pain, no palpitation no cough no nausea or vomiting no abdominal pain no diarrhea no blood in the stools no burning with urination no frequency or urgency and no hematuria, there is no weakness or numbness in any of the extremities no change in vision speech or gait. D-dimer was elevated at 1.46, patient underwent VQ scan that was low probability for pulmonary embolism, bilateral lower extremity Doppler is still pending, patient also had elevated troponin levels at 0.071, 0.098, 0.092 cardiology are consulted, echocardiogram done patient remains on IV heparin at this time, PTT is therapeutic at 91.9, patient has known history of chronic kidney disease at this time BUN is 74 creatinine 2.33 he was seen in the past by Dr. Rojas, Will place a consult for nephrology for follow-up. On 09/27/2020 patient is alert and oriented 3 resting comfortably in bed. Patient does report improvement with overall shortness of breath. Patient remains on IV Lasix. He was started on eliquis per cardiology services for proximal atrial fibrillation. Arterial ultrasound of the lower extremity is ordered per vascular surgery. At this time patient denies any chest pain or shortness of breath. Patient denies nausea vomiting or diarrhea. Patient denies any urinary burning or frequency. Cardiology, nephrology, infectious disease and vascular surgery are following On 09/28/2020 Patient was seen and examined on the medical floor, he is alert and oriented x 3 in no distress, he denies any complaints there is no fever or chills no headache or dizziness no chest pain no shortness of breath no palpitation no cough no nausea or vomiting no abdominal pain no diarrhea no blood in the stools no burning with urination no frequency or urgency and no hematuria, there is no weakness or numbness in any of the extremities no change in vision speech or gait. Patient is still complaining of severe swelling and erythema and tenderness in his bilateral feet, otherwise he denies any complaints at this time. Objective - Vital Signs Vital signs: Vital Signs Temp 96.2 F L 09/29/20 00:00 Pulse 62 09/29/20 08:00 Resp 16 09/29/20 08:00 BP 128/85 09/29/20 08:00 Pulse Ox 96 09/29/20 08:00 Intake & Output 09/28/20 09/29/20 09/29/20 18:59 06:59 18:59 Intake Total 840 360 Output Total 1520 760 400 Balance -680 -760 -40 Weight 91.6 kg Intake: Oral 840 360 Output: Urine 1220 760 400 Post Void Residual 300 Other: # Bowel Movements 1 1 - Exam In general patient is alert and oriented 3 in no distress Head normocephalic and atraumatic Neck supple no JVD no goiter Lungs diminished bilaterally no crackles no wheezing Heart regular rate and rhythm S1-S2, no rub or gallop Abdomen is soft nontender nondistended positive bowel sounds no hepatosplenomegaly Extremities +3 pedal edema noted to right side. Left +1. Bilateral spread is noted to feet. Neuro no gross focal neurological deficit - Labs CBC & Chem 7: 09/28/20 07:14 09/29/20 07:29 Labs: Abnormal Lab Results - Last 24 Hours (Table) 05/18/21 Range/Units 07:29 Potassium 5.8 H (3.5-5.1) mmol/L BUN 83 H (9-20) mg/dL Creatinine 3.05 H (0.66-1.25) mg/dL Assessment and Plan Assessment: 1. Shortness breath secondary to acute on chronic systolic CHF exacerbation. BNP elevated at 43,000. Patient started on IV Lasix. Cardiomegaly with diffuse bilateral perihilar reticular opacities compatible with interstitial pulmonary disease. Cardiology services consulted 2-D echo ordered. 2. Elevated d-dimer. D-dimer 1.46. Venous Doppler ordered to rule out DVT. VQ scan completed showing low probability of PE 3. Elevated troponins. Cardiology services following. 4. Cellulitis to lower extremities. She started on Rocephin. Infectious disease consulted IV antibiotics DC'd 5. Coolness noted to bilateral feet. Vascular surgery consulted. Arterial ultrasound of lower extremity is ordered 6. Chronic kidney disease stage III. Creatinine 2.5 and bun 69 this does appear on patient's baseline. Nephrology services consulted 7. 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 History of COPD 9. Paroxysmal atrial fibrillation. Patient started on eliquis per cardiology services DVT prophylaxis heparin drip. GI prophylaxis Protonix Cardiology, nephrology, infectious disease and vascular surgery consulted Patient started on IV Lasix Arterial ultrasound ordered
--- NOTE | 2020-09-29 10:39 | P.PN ---
Subjective This is a pleasant 80-year-old male past medical history significant for chronic systolic heart failure with reduced ejection fraction, high degree AV block, sick sinus syndrome s/p Bi-ventricular PPM (09/2019), chronic systolic heart failure with reduced EF, valvular heart disease with mixed moderate aortic stenosis and moderate aortic regurgitation, mild mitral stenosis, chronic kidney disease, former nicotine dependence, paroxysmal atrial fibrillation. He currently follows in the office with Dr. Owusu. We have been asked to see in consultation for congestive heart failure. Patient presents to the emergency department with worsening shortness of breath, dyspnea on exertion, lower extremity edema and symptoms of orthopnea. Patient denies history of stroke or diabetes. He is a former smoker quit last year. BNP 43,400 (23,000 in 03/2020). Started on IV Lasix. Troponin 0.07, 0.09 (patient with chronically elevated troponin). Hypertensive on admission BP 180s/60s HR 60s, afebrile. 09/29/2020 Pt seen and examined sitting up at the edge of the bed in no acute distress. He states he had a horrible night and his legs continue to throb. He denies chest pain, shortness of breath, dizziness or palpitations. Blood pressure 128/85 hear t rate 62 afebrile and maintaining oxygen saturation on room air. Laboratory data reviewed, sodium 139, potassium 5.8 creatinine 3.05. 24-hour urine output 2280 mL's. GENERAL: Well-appearing, well-nourished and in no acute distress. NECK: Supple without JVD or thyromegaly. LUNGS: Breath sounds clear to auscultation bilaterally. Respiration equal and unlabored. No wheezes, rales or rhonchi. HEART: Regular rate and rhythm with systolic ejection murmur at the base, no rubs or gallops. S1 and S2 heard. EXTREMITIES: Normal range of motion, 2+ bilateral lower extremity pitting edema. No clubbing or cyanosis. Peripheral pulses intact. ASSESSMENT Acute on chronic systolic heart failure, ejection fraction 30-35% Elevated troponin, not related to ACS Sick sinus syndrome status post permanent pacemaker implantation Valvular heart disease Chronic persistent atrial fibrillation on long-term anticoagulation Hypertension Chronic kidney disease History of noncompliance PLAN Continue IV diuresis at this time and await further opinion from nephrology. Document accurate intake and output along with daily weights. Losartan was decreased yesterday. Nurse Practitioner note has been reviewed, I agree with a documented findings and plan of care. Patient was seen and examined. Objective - Vital Signs Vital signs: Vital Signs Temp 96.2 F L 09/29/20 00:00 Pulse 62 09/29/20 08:00 Resp 16 09/29/20 08:00 BP 128/85 09/29/20 08:00 Pulse Ox 96 09/29/20 08:00 Intake & Output 09/28/20 09/29/20 09/29/20 18:59 06:59 18:59 Intake Total 840 360 Output Total 1520 760 400 Balance -680 -760 -40 Weight 91.6 kg Intake: Oral 840 360 Output: Urine 1220 760 400 Post Void Residual 300 Other: # Bowel Movements 1 1 - Labs CBC & Chem 7: 09/28/20 07:14 09/29/20 07:29 Labs: Abnormal Lab Results - Last 24 Hours (Table) 09/29/20 Range/Units 07:29 Potassium 5.8 H (3.5-5.1) mmol/L BUN 83 H (9-20) mg/dL Creatinine 3.05 H (0.66-1.25) mg/dL
[2020-09-29] MEDS ORDERED: DEXTROSE 50% SYRINGE 50 ML IVP STA (11:19)
[2020-09-29] MEDS ORDERED: INSULIN REGULAR 100 UNIT/ML VIAL IV ONE (11:20)
[2020-09-29] MEDS: DOBUTamine DRIP 500 MG in DEXTROSE/WATER 1 250ML.BAG IV SCH (11:46)
--- NOTE | 2020-09-29 12:01 | PN ---
PROGRESS NOTE The patient is seen for followup for acute kidney injury on top of chronic kidney disease. He is currently being diuresed. Lasix is at 40 mg q.12 hours. The patient is maintained on Cozaar which was decreased yesterday. Blood pressure has not been low; in fact, it is on the higher side. Patient is voiding. His post-void residual was documented at about 300 mL. A 24-hour output at 2.2 L. His weight has not decreased. PHYSICAL EXAMINATION: On examination today, patient is sleeping. He is arousable, comfortable, not in any acute distress. Blood pressure is 128/85, heart rate 62 per minute. He is afebrile. EXAMINATION OF THE HEART: S1, S2. EXAMINATION OF THE LUNGS: Decreased breath sounds at bases. Abdomen is soft, nontender. Examination of lower extremities shows edema 2+ bilaterally. 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 LABS: Labs show sodium 139, potassium 5.8, chloride 107, BUN 83, serum creatinine 3.05. ASSESSMENT: 1. Acute kidney injury with progression of renal failure. The patient remains volume overloaded. His potassium has also worsened. I will discontinue the Cozaar for now and the patient's ejection fraction is at 30% to 35%. Therefore, he will benefit from dobutamine. I will discuss with Cardiology. 2. Acute hypoxic respiratory failure secondary to congestive heart failure exacerbation. 3. 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 Baseline creatinine 2- 2.4 mg/dL. 4. Lower extremity wounds and cellulitis. 5. Severe cardiomyopathy, ejection fraction 30% to 35%. PLAN: Treat hyperkalemia with insulin and D50 and start dobutamine. Increase Lasix to 60 mg q.12 hours. The patient may need a [place] catheter as well, specially if he has had high postvoid residuals. MMODL / IJN: [id number] /
[2020-09-29] MEDS: FUROSEMIDE 10 MG/ML 10 ML VIAL IV SCH (17:08)
--- NOTE | 2020-09-29 17:34 | P.PN ---
Subjective Progress Note Date: 09/29/20 Sean Lin is an 80-year-old male patient who presented to the ER with complaints of increasing shortness of breath over the past few months. Patient also reports swelling to lower extremities. Patient has a past medical history of A. fib, heart failure, COPD, GERD, GI bleed, hypertension, thyroid disorder. BNP elevated at 42,400. Mildly elevated troponin 0.071 and 0.098. Patient's creatinine 2.59 and bun 69 this does appear on patient's baseline. Patient also elevated d-dimer 1.46. VQ scan ordered due to chronic kidney disease. At that time cardiology services will be consulted. Patient started on IV Lasix. Upon examination feet found cold to touch bilaterally right greater than left with swelling and erythema tender to touch. Will start patient on Rocephin for cellulitis. Will consult vascular surgery due to concerns of arterial disease. Will order venous Doppler to rule out DVT. This time patient denies chest pain. Patient does complain of shortness of breath. Patient denies nausea vomiting or diarrhea. Patient denies any urinary burning or frequency. On 09/26/2020 patient was seen and examined on the telemetry floor he is alert and oriented 3 in no apparent distress he is complaining of pain in both feet he is also complaining of shortness of breath with any activity, otherwise he denies any complaint. There is no fever or chills no headache or dizziness no chest pain, no palpitation no cough no nausea or vomiting no abdominal pain no diarrhea no blood in the stools no burning with urination no frequency or urgency and no hematuria, there is no weakness or numbness in any of the extremities no change in vision speech or gait. D-dimer was elevated at 1.46, patient underwent VQ scan that was low probability for pulmonary embolism, bilateral lower extremity Doppler is still pending, patient also had elevated troponin levels at 0.071, 0.098, 0.092 cardiology are consulted, echocardiogram done patient remains on IV heparin at this time, PTT is therapeutic at 91.9, patient has known history of chronic kidney disease at this time BUN is 74 creatinine 2.33 he was seen in the past by Dr. Rojas, Will place a consult for nephrology for follow-up. On 09/27/2020 patient is alert and oriented 3 resting comfortably in bed. Patient does report improvement with overall shortness of breath. Patient remains on IV Lasix. He was started on eliquis per cardiology services for proximal atrial fibrillation. Arterial ultrasound of the lower extremity is ordered per vascular surgery. At this time patient denies any chest pain or shortness of breath. Patient denies nausea vomiting or diarrhea. Patient denies any urinary burning or frequency. Cardiology, nephrology, infectious disease and vascular surgery are following On 09/28/2020 Patient was seen and examined on the medical floor, he is alert and oriented x 3 in no distress, he denies any complaints there is no fever or chills no headache or dizziness no chest pain no shortness of breath no palpitation no cough no nausea or vomiting no abdominal pain no diarrhea no blood in the stools no burning with urination no frequency or urgency and no hematuria, there is no weakness or numbness in any of the extremities no change in vision speech or gait. Patient is still complaining of severe swelling and erythema and tenderness in his bilateral feet, otherwise he denies any complaints at this time. On 09/29/2020 patient was seen and examined on the medical floor he is alert and oriented 3 in no distress he is complaining of lower extremity pain and swelling otherwise he denies any complaints at this time there is no fever or chills no headache or dizziness no chest pain no shortness of breath no cough no nausea or vomiting no abdominal pain no diarrhea no blood in the stools no burning with urination no frequency or urgency and no hematuria Objective - Vital Signs Vital signs: Vital Signs Temp 96.2 F L 09/29/20 00:00 Pulse 65 09/29/20 12:00 Resp 16 09/29/20 12:00 BP 181/75 09/29/20 12:00 Pulse Ox 97 09/29/20 12:00 Intake & Output 09/28/20 09/29/20 09/29/20 18:59 06:59 18:59 Intake Total 840 600 Output Total 6654 917 5102 Balance -680 -760 -700 Weight 91.6 kg Intake: Oral 840 600 Output: Urine 8047 261 9489 Post Void Residual 300 225 Other: # Bowel Movements 1 1 - Exam In general patient is alert and oriented 3 in no distress Head normocephalic and atraumatic Neck supple no JVD no goiter Lungs diminished bilaterally no crackles no wheezing Heart regular rate and rhythm S1-S2, no rub or gallop Abdomen is soft nontender nondistended positive bowel sounds no hepatosplenomegaly Extremities +3 pedal edema noted to right side. Left +1. Bilateral spread is noted to feet. Neuro no gross focal neurological deficit - Labs CBC & Chem 7: 09/28/20 07:14 09/29/20 07:29 Labs: Abnormal Lab Results - Last 24 Hours (Table) 09/29/20 Range/Units 07:29 Potassium 5.8 H (3.5-5.1) mmol/L BUN 83 H (9-20) mg/dL Creatinine 3.05 H (0.66-1.25) mg/dL Assessment and Plan Assessment: 1. Shortness breath secondary to acute on chronic systolic CHF exacerbation. 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 Patient started on IV Lasix. Cardiomegaly with diffuse bilateral perihilar reticular opacities compatible with interstitial pulmonary disease. Cardiology services consulted 2-D echo ordered. 2. Elevated d-dimer. D-dimer 1.46. Venous Doppler ordered to rule out DVT. VQ scan completed showing low probability of PE 3. Elevated troponins. Cardiology services following. 4. Cellulitis to lower extremities. She started on Rocephin. Infectious disease consulted IV antibiotics DC'd 5. Coolness noted to bilateral feet. Vascular surgery consulted. Arterial ultrasound of lower extremity is ordered 6. Chronic kidney disease stage III. Creatinine 2.5 and bun 69 this does appear on patient's baseline. Nephrology services consulted 7. 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 History of COPD 9. Paroxysmal atrial fibrillation. Patient started on eliquis per cardiology services DVT prophylaxis heparin drip. GI prophylaxis Protonix Cardiology, nephrology, infectious disease and vascular surgery consulted Patient started on IV Lasix Arterial ultrasound ordered
[2020-09-29] MEDS: DOCUSATE 100 MG CAP PO SCH (19:49)
[2020-09-29] MEDS: LEVOTHYROXINE 88 MCG TAB PO SCH (19:50)
[2020-09-29] MEDS: FERROUS SULFATE 325 MG TAB PO SCH (19:50)
[2020-09-29] MEDS: HYDROmorphone 0.5 MG/0.5 ML SYRINGE IVP PRN (19:51)
--- NOTE | 2020-09-29 20:27 | PN ---
PROGRESS NOTE DATE OF SERVICE: 09/29/2020 REASON FOR FOLLOWUP: Bilateral foot swelling and a question of cellulitis. INTERVAL HISTORY: The patient is currently afebrile. He was complaining of nosebleed this morning that subsequently resolved, though. The patient denies having any chest pain. Breathing is slightly improved. Cough is decreased. No abdominal pain. Still has swelling to the foot and leg area, though slightly decreased. PHYSICAL EXAMINATION: Blood pressure 179/77, pulse of 64, temperature 96.2. He is 94% on room air. General description is an elderly male lying in bed in no distress. RESPIRATORY SYSTEM: Unlabored breathing with decreased intensity of breath sounds. No wheeze. HEART: S1, S2. Regular rate and rhythm. ABDOMEN: Soft. No tenderness. Legs remain swollen. Foot redness slightly decreased. LABS: BUN of 83, creatinine 3.05. DIAGNOSTIC IMPRESSION AND PLAN: Patient admitted to hospital with increasing shortness of breath in this patient who has evidence of acute exacerbation of congestive heart failure with swelling to the foot areas, some redness, clinically suspicious for cellulitis. Continue with Lasix and Rocephin. Monitor his clinical course closely. Continue with supportive care. MMODL / IJN: [id number] /
[2020-09-30] MEDS: FUROSEMIDE 10 MG/ML 10 ML VIAL IV SCH ×2 (04:57→16:18)
[2020-09-30] MEDS: carvediloL 6.25 MG TAB PO SCH ×2 (04:57→16:18)
[2020-09-30] MEDS: PANTOPRAZOLE 40 MG TABLET PO SCH (04:57)
[2020-09-30] MEDS: APIXABAN 2.5 MG TABLET PO SCH ×2 (08:23→20:55)
[2020-09-30 09:37] LABS: Calcium 8.8 mg/dL (8.4-10.2); Potassium 4.6 mmol/L (3.5-5.1)
--- NOTE | 2020-09-30 09:52 | P.ARTDOP ---
Arterial Doppler LOWER EXTREMITY ARTERIAL DOPPLER: DATE OF SERVICE: 09/25/2020 Reason for study: Bilateral foot pain. Doppler waveforms: Multiphasic at the femoral level and atypical below.. Pulse volume recording: []. Pressure gradients: Above the low thigh. Ankle-brachial indices: 0.5 on the right and 0.56 on the left. Toe brachial indices: [] on the right, [] on the left Impression: Moderate bilateral fem-pop disease. Cannot exclude iliac component. Suggest vascular specialty consult
--- NOTE | 2020-09-30 10:51 | PN ---
PROGRESS NOTE Patient is seen for followup for chronic kidney disease and acute kidney injury. Patient remains volume overloaded. He was started on dobutamine yesterday along with Lasix which was increased to 60 mg q.12 hours. The patient continues to have swelling. His weight is slightly decreased from yesterday and 24 hour urine output documented at 2.5 L. He is -1.6 L for 24 hours. PHYSICAL EXAMINATION: On examination today, blood pressure 140/58, heart rate 60 per minute. He is afebrile. EXAMINATION OF THE HEART: S1, S2. EXAMINATION OF THE LUNGS: Decreased breath sounds at bases. Abdomen is soft, nontender. Examination of lower extremities shows edema 2+ bilaterally with erythema noted in the lower extremities and feet. LOCOMOTIVE ENGINEER ELECTRIC exam grossly intact. LABS: Labs show sodium 139, potassium 4.6, BUN 81, creatinine 3.0. ASSESSMENT: 1. Acute kidney injury mostly cardiorenal, renal function fairly stable since yesterday. The patient was started on dobutamine drip along with IV push Lasix which was increased yesterday for persistent volume overload and worsening renal function. His weight is decreased today and he has diuresed better. Renal function is about the same. Therefore, I will continue with the dobutamine and I will increase the Lasix to 60 mg q.8 hours for today. 2. 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 Baseline creatinine 2- 2.4 mg/dL. 3. Cardiomyopathy, ejection fraction 30% to 35%. 4. Lower extremity wounds and cellulitis. PLAN: Continue with dobutamine. Increased Lasix to 60 mg q.8 hours. Repeat labs in a.m. Monitor electrolytes. MMODL / IJN: [id number] /
--- NOTE | 2020-09-30 11:39 | P.PN ---
Subjective Progress Note Date: 09/30/20 Sean Lin is an 80-year-old male patient who presented to the ER with complaints of increasing shortness of breath over the past few months. Patient also reports swelling to lower extremities. Patient has a past medical history of A. fib, heart failure, COPD, GERD, GI bleed, hypertension, thyroid disorder. BNP elevated at 42,400. Mildly elevated troponin 0.071 and 0.098. Patient's creatinine 2.59 and bun 69 this does appear on patient's baseline. Patient also elevated d-dimer 1.46. VQ scan ordered due to chronic kidney disease. At that time cardiology services will be consulted. Patient started on IV Lasix. Upon examination feet found cold to touch bilaterally right greater than left with swelling and erythema tender to touch. Will start patient on Rocephin for cellulitis. Will consult vascular surgery due to concerns of arterial disease. Will order venous Doppler to rule out DVT. This time patient denies chest pain. Patient does complain of shortness of breath. Patient denies nausea vomiting or diarrhea. Patient denies any urinary burning or frequency. On 09/26/2020 patient was seen and examined on the telemetry floor he is alert and oriented 3 in no apparent distress he is complaining of pain in both feet he is also complaining of shortness of breath with any activity, otherwise he denies any complaint. There is no fever or chills no headache or dizziness no chest pain, no palpitation no cough no nausea or vomiting no abdominal pain no diarrhea no blood in the stools no burning with urination no frequency or urgency and no hematuria, there is no weakness or numbness in any of the extremities no change in vision speech or gait. D-dimer was elevated at 1.46, patient underwent VQ scan that was low probability for pulmonary embolism, bilateral lower extremity Doppler is still pending, patient also had elevated troponin levels at 0.071, 0.098, 0.092 cardiology are consulted, echocardiogram done patient remains on IV heparin at this time, PTT is therapeutic at 91.9, patient has known history of chronic kidney disease at this time BUN is 74 creatinine 2.33 he was seen in the past by Dr. Rojas, Will place a consult for nephrology for follow-up. On 09/27/2020 patient is alert and oriented 3 resting comfortably in bed. Patient does report improvement with overall shortness of breath. Patient remains on IV Lasix. He was started on eliquis per cardiology services for proximal atrial fibrillation. Arterial ultrasound of the lower extremity is ordered per vascular surgery. At this time patient denies any chest pain or shortness of breath. Patient denies nausea vomiting or diarrhea. Patient denies any urinary burning or frequency. Cardiology, nephrology, infectious disease and vascular surgery are following On 09/28/2020 Patient was seen and examined on the medical floor, he is alert and oriented x 3 in no distress, he denies any complaints there is no fever or chills no headache or dizziness no chest pain no shortness of breath no palpitation no cough no nausea or vomiting no abdominal pain no diarrhea no blood in the stools no burning with urination no frequency or urgency and no hematuria, there is no weakness or numbness in any of the extremities no change in vision speech or gait. Patient is still complaining of severe swelling and erythema and tenderness in his bilateral feet, otherwise he denies any complaints at this time. On 09/29/2020 patient was seen and examined on the medical floor he is alert and oriented 3 in no distress he is complaining of lower extremity pain and swelling otherwise he denies any complaints at this time there is no fever or chills no headache or dizziness no chest pain no shortness of breath no cough no nausea or vomiting no abdominal pain no diarrhea no blood in the stools no burning with urination no frequency or urgency and no hematuria On 09/30/2020 patient is alert and oriented 3 patient is complaining of lower extremity pain and swelling perfusing Ch[place] wraps. Patient also educated on the importance of elevation while in bed. Creatinine 3.01 and bun 81. Patient was started on dobutamine per nephrology services Lasix increased. At this time patient denies chest pain or shortness of breath. Patient denies nausea vomiting or diarrhea. Patient denies any urinary burning or frequency Objective - Vital Signs Vital signs: Vital Signs Temp 97.3 F L 09/30/20 03:39 Pulse 60 09/30/20 08:00 Resp 16 09/30/20 08:00 BP 140/58 09/30/20 08:00 Pulse Ox 95 09/30/20 08:00 Intake & Output 09/29/20 09/30/20 09/30/20 18:59 06:59 18:59 Intake Total 960 480 Output Total 6147 725 3055 Balance -725 -310 -481 Weight 88.5 kg Intake: Oral 960 480 Output: Urine 6355 929 4606 Post Void Residual 225 - Exam In general patient is alert and oriented 3 in no distress Head normocephalic and atraumatic Neck supple no JVD no goiter Lungs diminished bilaterally no crackles no wheezing Heart regular rate and rhythm S1-S2, no rub or gallop Abdomen is soft nontender nondistended positive bowel sounds no hepatosp lenomegaly Extremities +3 pedal edema noted to right side. Left +1. Bilateral spread is noted to feet. Neuro no gross focal neurological deficit - Labs CBC & Chem 7: 09/28/20 07:14 09/30/20 08:55 Labs: Abnormal Lab Results - Last 24 Hours (Table) 09/30/20 Range/Units 08:55 BUN 81 H (9-20) mg/dL Creatinine 3.01 H (0.66-1.25) mg/dL Glucose 176 H (74-99) mg/dL Assessment and Plan Assessment: 1. Shortness breath secondary to acute on chronic systolic CHF exacerbation. BNP elevated at 43,000. Patient started on IV Lasix. Cardiomegaly with diffuse bilateral perihilar reticular opacities compatible with interstitial pulmonary disease. 2. Elevated d-dimer. D-dimer 1.46. Venous Doppler ordered to rule out DVT. VQ scan completed showing low probability of PE 3. Elevated troponins. Cardiology services following. 4. Cellulitis to lower extremities. She started on Rocephin. Infectious disease consulted IV antibiotics DC'd 5. Coolness noted to bilateral feet. Vascular surgery consulted. Arterial ultrasound of lower extremity is ordered 6. Chronic kidney disease stage III. Creatinine 2.5 and bun 69 this does appear on patient's baseline. Nephrology services following. Dobutamine added. Lasix increased 7. 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 History of COPD 9. Paroxysmal atrial fibrillation. Patient started on eliquis per cardiology services DVT prophylaxis heparin drip. GI prophylaxis Protonix Cardiology, nephrology, infectious disease and vascular surgery consulted Patient started on IV Lasix Arterial ultrasound ordered
[2020-09-30] MEDS: HYDROmorphone 0.5 MG/0.5 ML SYRINGE IVP PRN (12:09)
--- NOTE | 2020-09-30 12:36 | P.PN ---
Subjective This is a pleasant 80-year-old male past medical history significant for chronic systolic heart failure with reduced ejection fraction, high degree AV block, sick sinus syndrome s/p Bi-ventricular PPM (09/2019), chronic systolic heart failure with reduced EF, valvular heart disease with mixed moderate aortic stenosis and moderate aortic regurgitation, mild mitral stenosis, chronic kidney disease, former nicotine dependence, paroxysmal atrial fibrillation. He currently follows in the office with Dr. Owusu. We have been asked to see in consultation for congestive heart failure. Patient presents to the emergency department with worsening shortness of breath, dyspnea on exertion, lower extremity edema and symptoms of orthopnea. Patient denies history of stroke or diabetes. He is a former smoker quit last year. BNP 43,400 (23,000 in 03/2020). Started on IV Lasix. Troponin 0.07, 0.09 (patient with chronically elevated troponin). Hypertensive on admission BP 180s/60s HR 60s, afebrile. 09/30/2020 Pt seen and examined laying flat resting comfortably in bed in no acute distress. He continues to complain of bilateral lower extremity discomfort. He states he didn't sleep well last night. He denies worsening shortness of breath. He has no chest pain, dizziness or palpitations. He underwent a lower extremity arterial Doppler revealing moderate bilateral fem-pop disease with possible iliac component. Vascular consult recommended. Blood pressure 140/58 heart rate 68 afebrile maintaining oxygen saturation on room air. Telemetry tracings reviewed, AV pacing. Laboratory data reviewed, sodium 139, potassium 4.6, creatinine stable at 3.01. He is currently maintained on dobutamine infusion per nephrology. IV lasix ongoing per nephrology. GENERAL: Well-appearing, well-nourished and in no acute distress. NECK: Supple without JVD or thyromegaly. LUNGS: Breath sounds clear to auscultation bilaterally. Respiration equal and un labored. No wheezes, rales or rhonchi. HEART: Regular rate and rhythm with systolic ejection murmur at the base, no rubs or gallops. S1 and S2 heard. EXTREMITIES: Normal range of motion, 2+ bilateral lower extremity pitting edema. No clubbing or cyanosis. Peripheral pulses intact. ASSESSMENT Acute on chronic systolic heart failure, ejection fraction 30-35% Elevated troponin, not related to ACS Sick sinus syndrome status post permanent pacemaker implantation Valvular heart disease Chronic persistent atrial fibrillation on long-term anticoagulation Hypertension Chronic kidney disease History of noncompliance PLAN Continue current medical regimen. Follow renal function and electrolytes in the morning. Nephrology following. Nurse Practitioner note has been reviewed, I agree with a documented findings and plan of care. Patient was seen and examined. Objective - Vital Signs Vital signs: Vital Signs Temp 97.3 F L 09/30/20 03:39 Pulse 60 09/30/20 08:00 Resp 16 09/30/20 08:00 BP 140/58 09/30/20 08:00 Pulse Ox 95 09/30/20 08:00 Intake & Output 09/29/20 09/30/20 09/30/20 18:59 06:59 18:59 Intake Total 960 480 Output Total 1650 900 600 Balance -690 -900 -120 Weight 88.5 kg Intake: Oral 960 480 Output: Urine 1425 900 600 Post Void Residual 225 - Labs CBC & Chem 7: 09/28/20 07:14 09/30/20 08:55 Labs: Abnormal Lab Results - Last 24 Hours (Table) 09/30/20 Range/Units 08:55 BUN 81 H (9-20) mg/dL Creatinine 3.01 H (0.66-1.25) mg/dL Glucose 176 H (74-99) mg/dL
[2020-09-30] MEDS: DOBUTamine DRIP 500 MG in DEXTROSE/WATER 1 250ML.BAG IV SCH (16:16)
--- NOTE | 2020-09-30 17:21 | PN ---
PROGRESS NOTE DATE OF SERVICE: 09/30/2020 REASON FOR FOLLOWUP: Bilateral foot swelling and redness with concern for cellulitis. INTERVAL HISTORY: The patient is currently afebrile. He mentioned not feeling that good; still has significant swelling, especially to bilateral foot areas with minimal redness. Currently no open wound or any drainage. Denies having any chest pain or any worsening shortness of breath. No abdominal pain or diarrhea. PHYSICAL EXAMINATION: Blood pressure 173/72 with a pulse of 61, temperature 98. He is 97% on room air. General description is an elderly male up in the bed in no distress. RESPIRATORY SYSTEM: Unlabored breathing with decreased intensity of breath sounds. No wheeze. HEART: S1, S2. Regular rate and rhythm. ABDOMEN: Soft. No tenderness. Bilateral feet remain swollen with redness. No drainage. LABS: BUN of 81, creatinine 3.01. DIAGNOSTIC IMPRESSION AND PLAN: Patient with bilateral foot swelling related to fluid overload. Clinically not behaving as cellulitis, though covered with Rocephin. Continue with Rocephin, diuretics and monitor clinical course closely. Continue supportive care. MMODL / IJN: [id number] /
[2020-09-30] MEDS: ALBUTEROL HFA INHALER INHALATION PRN (19:52)
[2020-09-30] MEDS: DOCUSATE 100 MG CAP PO SCH (20:55)
[2020-09-30] MEDS: LEVOTHYROXINE 88 MCG TAB PO SCH (20:55)
[2020-09-30] MEDS: FERROUS SULFATE 325 MG TAB PO SCH (20:56)
[2020-10-01] MEDS: FUROSEMIDE 10 MG/ML 10 ML VIAL IV SCH ×2 (00:09→08:30)
[2020-10-01] MEDS: carvediloL 6.25 MG TAB PO SCH ×2 (06:30→17:28)
[2020-10-01] MEDS: PANTOPRAZOLE 40 MG TABLET PO SCH (06:30)
[2020-10-01 08:14] LABS: Anisocytosis Slight; Basophils % (A) 0 %; Eosinophils # (A) 0.4 k/uL (0-0.7); Eosinophils % (A) 5 %; HCT 31.9 % (39.0-53.0); HGB 10.6 gm/dL (13.0-17.5); Hypochromasia Slight; Lymphocytes # (A) 0.5 k/uL (1.0-4.8); Lymphocytes % (A) 6 %; MCH 30.2 pg (25.0-35.0); MCHC 33.1 g/dL (31.0-37.0); MCV 91.4 fL (80.0-100.0); Mean Platelet Volume 7.9; Monocytes # (A) 0.6 k/uL (0-1.0); Monocytes % (A) 8 %; Neutrophils # (A) 6.3 k/uL (1.3-7.7); Neutrophils % (A) 79 %; Platelet Count 245 k/uL (150-450); RBC 3.49 m/uL (4.30-5.90); RDW 16.3 % (11.5-15.5); WBC 7.9 k/uL (3.8-10.6)
[2020-10-01 08:29] LABS: Albumin 3.7 g/dL (3.5-5.0); Calcium 9.3 mg/dL (8.4-10.2); Potassium 4.7 mmol/L (3.5-5.1); Total Bilirubin 0.2 mg/dL (0.2-1.3)
[2020-10-01] MEDS: APIXABAN 2.5 MG TABLET PO SCH ×2 (08:32→20:43)
--- NOTE | 2020-10-01 12:55 | P.PN ---
Subjective This is a pleasant 80-year-old male past medical history significant for chronic systolic heart failure with reduced ejection fraction, high degree AV block, sick sinus syndrome s/p Bi-ventricular PPM (09/2019), chronic systolic heart failure with reduced EF, valvular heart disease with mixed moderate aortic stenosis and moderate aortic regurgitation, mild mitral stenosis, chronic kidney disease, former nicotine dependence, paroxysmal atrial fibrillation. He currently follows in the office with Dr. Owusu. We have been asked to see in consultation for congestive heart failure. Patient presents to the emergency department with worsening shortness of breath, dyspnea on exertion, lower extremity edema and symptoms of orthopnea. Patient denies history of stroke or diabetes. He is a former smoker quit last year. BNP 43,400 (23,000 in 03/2020). Started on IV Lasix. Troponin 0.07, 0.09 (patient with chronically elevated troponin). Hypertensive on admission BP 180s/60s HR 60s, afebrile. 10/01/2020 Patient seen and examined sitting up in bed in no acute distress. He denies shortness of breath, chest pain, dizziness or palpitations. He has ongoing significant lower extremity edema. Blood pressure 185/74 heart rate 61 afebrile maintaining oxygen saturation on room air. Laboratory data reviewed, WBC 7.9, hemoglobin 10.6, platelets 245, sodium 140, potassium 4.7, creatinine 2.98. 24- hour urine output 1925 mls. Currently maintained on Eliquis 2.5 mg twice a day, Coreg 12.5 mg twice a day, Lasix 60 mg IV 3 times a day and dobutamine 2.5 mics per kilogram per minute. GENERAL: Well-appearing, well-nourished and in no acute distress. NECK: Supple without JVD or thyromegaly. LUNGS: Breath sounds clear to auscultation bilaterally. Respiration equal and unlabored. No wheezes, rales or rhonchi. HEART: Regular rate and rhythm with systolic ejection murmur at the base, no rubs or gallops. S1 and S2 heard. EXTREMITIES: Normal range of motion, 2+ bilateral lower extremity pitting edema. No clubbing or cyanosis. Peripheral pulses intact. ASSESSMENT Acute on chronic systolic heart failure, ejection fraction 30-35% Elevated troponin, not related to ACS Sick sinus syndrome status post permanent pacemaker implantation Valvular heart disease Chronic persistent atrial fibrillation on long-term anticoagulation Hypertension Chronic kidney disease History of noncompliance PLAN Diuretics per nephrology, plan to change to lasix infusion. Follow renal function and electrolytes in the morning. Nurse Practitioner note has been reviewed, I agree with a documented findings and plan of care. Patient was seen and examined. Objective - Vital Signs Vital signs: Vital Signs Temp 97.8 F 10/01/20 08:34 Pulse 61 10/01/20 08:34 Resp 18 10/01/20 08:34 BP 185/74 10/01/20 08:34 Pulse Ox 96 10/01/20 08:34 Intake & Output 09/30/20 10/01/20 10/01/20 18:59 06:59 18:59 Intake Total 1155.795 240 420 Output Total 1075 850 300 Balance 80.795 -610 120 Weight 87.4 kg Intake: Intake, IV Titration 195.795 Amount DOBUTamine DRIP 500 mg In 195.795 Dextrose/Water 1 250ml. bag @ 2.5 MCG/KG/MIN 6.87 mls/hr IV .Q24H [facility] Rx#: [id number] Oral 960 240 420 Output: Urine 1075 850 300 Other: # Bowel Movements 1 - Labs CBC & Chem 7: 10/01/20 07:27 10/01/20 07:27 Labs: Abnormal Lab Results - Last 24 Hours (Table) 10/01/20 10/01/20 Range/Units 07:27 07:27 RBC 3.49 L (4.30-5.90) m/uL Hgb 10.6 L (13.0-17.5) gm/dL Hct 31.9 L (39.0-53.0) % RDW 16.3 H (11.5-15.5) % Lymphocytes # 0.5 L (1.0-4.8) k/uL BUN 80 H (9-20) mg/dL Creatinine 2.98 H (0.66-1.25) mg/dL Total Protein 6.0 L (6.3-8.2) g/dL
--- NOTE | 2020-10-01 13:44 | PN ---
PROGRESS NOTE Patient is seen for followup for acute kidney injury on top of chronic kidney disease. Patient is currently on dobutamine drip for diuresis. He was admitted with volume overload and worsening renal function. Lasix is currently at 60 mg IV q.8 hours. A 24- hour output documented at about 1.9 L. The patient's edema has not improved significantly. His weight is slightly lower than 2 days ago, but still not much improved. PHYSICAL EXAMINATION: On examination today, blood pressure 185/74, heart rate 61 per minute. He is afebrile. EXAMINATION OF THE HEART: S1, S2. EXAMINATION OF THE LUNGS: Decreased breath sounds at bases. Basal crackles are heard. Abdomen is soft, nontender. Examination of lower extremities shows 3+ edema with edema of the skin noted bilateral lower extremities. 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 LABS: Labs show sodium 140, potassium 4.7, chloride 105, BUN 80, creatinine 2.9, hemoglobin 10.6 g/dL. ASSESSMENT: 1. Acute kidney injury cardiorenal with some improvement in serum creatinine, however, patient remains significantly volume overloaded. I will continue with the dobutamine drip and add Lasix drip as well. 2. Volume overload, not much improved. Change Lasix IV push to the Lasix drip at 10 mg/hour. 3. 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 Baseline creatinine 2- 2.4 mg/dL. 4. Congestive heart failure, acute on top of chronic systolic. 5. Cardiomyopathy, 30% to 35% ejection fraction. 6. Lower extremity wounds and cellulitis. PLAN: Continue with dobutamine. Change Lasix IV push to a drip at 10 mg an hour. Monitor urine output. Repeat labs in a.m. The patient is advised regarding fluid restriction. MMODL / IJN: [id number] /
[2020-10-01] MEDS: HYDROmorphone 0.5 MG/0.5 ML SYRINGE IVP PRN (15:35)
[2020-10-01] MEDS: FUROSEMIDE 100 MG in SODIUM CHLORIDE 0.9% 90 ML IV SCH ×2 (15:39→22:08)
[2020-10-01] MEDS: hydrALAZINE HCL 10 MG TAB PO SCH ×2 (17:28→20:44)
--- NOTE | 2020-10-01 17:47 | PN ---
PROGRESS NOTE DATE OF SERVICE: 10/01/2020 REASON FOR FOLLOWUP: Bilateral foot swelling and concern for cellulitis. INTERVAL HISTORY: The patient is afebrile. The patient is breathing comfortably. The patient denies having any chest pain, cough. No abdominal pain. No diarrhea. Still having swelling and redness to the bilateral foot areas but no worsening. PHYSICAL EXAMINATION: Blood pressure 196/80 with a pulse of 60, temperature 98.2. He is 97% on room air. General description is an elderly male up in the chair in no distress. RESPIRATORY SYSTEM: Unlabored breathing. Coarse breath sounds at the bases. No wheeze. HEART: S1, S2. Regular rate and rhythm. ABDOMEN: Soft. No tenderness. Bilateral feet remain swollen with minimal redness. No warmth. No drainage. LABS: Hemoglobin is 10.6, white count 7.9. BUN of 80, creatinine 2.98. DIAGNOSTIC IMPRESSION AND PLAN: 1. Patient with bilateral foot and leg swelling in this patient who did have evidence of congestive heart failure and fluid overload with some discoloration, not typical for cellulitis, covered with Rocephin. 2. Possible in between the toes. MMODL / IJN: [id number] /
--- NOTE | 2020-10-01 18:07 | P.PN ---
Subjective Progress Note Date: 10/01/20 Sean Lin is an 80-year-old male patient who presented to the ER with complaints of increasing shortness of breath over the past few months. Patient also reports swelling to lower extremities. Patient has a past medical history of A. fib, heart failure, COPD, GERD, GI bleed, hypertension, thyroid disorder. BNP elevated at 42,400. Mildly elevated troponin 0.071 and 0.098. Patient's creatinine 2.59 and bun 69 this does appear on patient's baseline. Patient also elevated d-dimer 1.46. VQ scan ordered due to chronic kidney disease. At that time cardiology services will be consulted. Patient started on IV Lasix. Upon examination feet found cold to touch bilaterally right greater than left with swelling and erythema tender to touch. Will start patient on Rocephin for cellulitis. Will consult vascular surgery due to concerns of arterial disease. Will order venous Doppler to rule out DVT. This time patient denies chest pain. Patient does complain of shortness of breath. Patient denies nausea vomiting or diarrhea. Patient denies any urinary burning or frequency. On 09/26/2020 patient was seen and examined on the telemetry floor he is alert and oriented 3 in no apparent distress he is complaining of pain in both feet he is also complaining of shortness of breath with any activity, otherwise he denies any complaint. There is no fever or chills no headache or dizziness no chest pain, no palpitation no cough no nausea or vomiting no abdominal pain no diarrhea no blood in the stools no burning with urination no frequency or urgency and no hematuria, there is no weakness or numbness in any of the extremities no change in vision speech or gait. D-dimer was elevated at 1.46, patient underwent VQ scan that was low probability for pulmonary embolism, bilateral lower extremity Doppler is still pending, patient also had elevated troponin levels at 0.071, 0.098, 0.092 cardiology are consulted, echocardiogram done patient remains on IV heparin at this time, PTT is therapeutic at 91.9, patient has known history of chronic kidney disease at this time BUN is 74 creatinine 2.33 he was seen in the past by Dr. Rojas, Will place a consult for nephrology for follow-up. On 09/27/2020 patient is alert and oriented 3 resting comfortably in bed. Patient does report improvement with overall shortness of breath. Patient remains on IV Lasix. He was started on eliquis per cardiology services for proximal atrial fibrillation. Arterial ultrasound of the lower extremity is ordered per vascular surgery. At this time patient denies any chest pain or shortness of breath. Patient denies nausea vomiting or diarrhea. Patient denies any urinary burning or frequency. Cardiology, nephrology, infectious disease and vascular surgery are following On 09/28/2020 Patient was seen and examined on the medical floor, he is alert and oriented x 3 in no distress, he denies any complaints there is no fever or chills no headache or dizziness no chest pain no shortness of breath no palpitation no cough no nausea or vomiting no abdominal pain no diarrhea no blood in the stools no burning with urination no frequency or urgency and no hematuria, there is no weakness or numbness in any of the extremities no change in vision speech or gait. Patient is still complaining of severe swelling and erythema and tenderness in his bilateral feet, otherwise he denies any complaints at this time. On 09/29/2020 patient was seen and examined on the medical floor he is alert and oriented 3 in no distress he is complaining of lower extremity pain and swelling otherwise he denies any complaints at this time there is no fever or chills no headache or dizziness no chest pain no shortness of breath no cough no nausea or vomiting no abdominal pain no diarrhea no blood in the stools no burning with urination no frequency or urgency and no hematuria On 09/30/2020 patient is alert and oriented 3 patient is complaining of lower extremity pain and swelling perfusing Chano wraps. Patient also educated on the importance of elevation while in bed. Creatinine 3.01 and bun 81. Patient was started on dobutamine per nephrology services Lasix increased. At this time patient denies chest pain or shortness of breath. Patient denies nausea vomiting or diarrhea. Patient denies any urinary burning or frequency On 10/01/2020 patient was seen and examined on the medical floor, he is alert and oriented 3 he is complaining of lower extremity pain and swelling perfusing Chano wraps. Patient also educated on the importance of elevation while in bed. Creatinine 3.01 and bun 81. Patient was started on dobutamine per nephrology services Lasix increased. At this time patient denies chest pain or shortness of breath. Patient denies nausea vomiting or diarrhea. Patient denies any urinary burning or frequency. He was evaluated by nephrology and was started on insulin drip, patient had arterial study on the lower extremities he will be reevaluated by vascular surgery. Objective - Vital Signs Vital signs: Vital Signs Temp 98.2 F 10/01/20 15:40 Pulse 60 10/01/20 15:40 Resp 20 10/01/20 15:40 BP 196/80 10/01/20 15:40 Pulse Ox 97 10/01/20 15:40 Intake & Output 09/30/20 10/01/20 10/01/20 18:59 06:59 18:59 Intake Total 1155.795 240 900 Output Total 1075 850 900 Balance 80.795 -610 0 Weight 87.4 kg Intake: Intake, IV Titration 195.795 Amount DOBUTamine DRIP 500 mg In 195.795 Dextrose/Water 1 250ml. bag @ 2.5 MCG/KG/MIN 6.87 mls/hr IV .Q24H [facility] Rx#: [id number] Oral 960 240 900 Output: Urine 1075 850 900 Other: # Bowel Movements 1 - Exam In general patient is alert and oriented 3 in no distress Head normocephalic and atraumatic Neck supple no JVD no goiter Lungs diminished bilaterally no crackles no wheezing Heart regular rate and rhythm S1-S2, no rub or gallop Abdomen is soft nontender nondistended positive bowel sounds no hepatosplenomegaly Extremities +3 pedal edema noted to right side. Left +1. Bilateral spread is noted to feet. Neuro no gross focal neurological deficit - Labs CBC & Chem 7: 10/01/20 07:27 10/01/20 07:27 Labs: Abnormal Lab Results - Last 24 Hours (Table) 10/01/20 10/01/20 Range/Units 07:27 07:27 RBC 3.49 L (4.30-5.90) m/uL Hgb 10.6 L (13.0-17.5) gm/dL Hct 31.9 L (39.0-53.0) % RDW 16.3 H (11.5-15.5) % Lymphocytes # 0.5 L (1.0-4.8) k/uL BUN 80 H (9-20) mg/dL Creatinine 2.98 H (0.66-1.25) mg/dL Total Protein 6.0 L (6.3-8.2) g/dL Assessment and Plan Assessment: 1. Shortness breath secondary to acute on chronic systolic CHF exacerbation. BNP elevated at 43,000. Patient started on IV Lasix. Cardiomegaly with diffuse bilateral perihilar reticular opacities compatible with interstitial pulmonary disease. 2. Elevated d-dimer. D-dimer 1.46. Venous Doppler ordered to rule out DVT. VQ scan completed showing low probability of PE 3. Elevated troponins. Cardiology services following. 4. Cellulitis to lower extremities. She started on Rocephin. Infectious disease consulted IV antibiotics DC'd 5. Coolness noted to bilateral feet. Vascular surgery consulted. Arterial ultrasound of lower extremity is ordered 6. Chronic kidney disease stage III. Creatinine 2.5 and bun 69 this does appear on patient's baseline. Nephrology services following. Dobutamine added. Lasix increased 7. 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 History of COPD 9. Paroxysmal atrial fibrillation. Patient started on eliquis per cardiology services DVT prophylaxis heparin drip. GI prophylaxis Protonix Cardiology, nephrology, infectious disease and vascular surgery consulted Patient started on IV Lasix Arterial ultrasound ordered
[2020-10-01] MEDS: DOBUTamine DRIP 500 MG in DEXTROSE/WATER 1 250ML.BAG IV SCH (18:12)
[2020-10-01] MEDS: DOCUSATE 100 MG CAP PO SCH (20:34)
[2020-10-01] MEDS: LEVOTHYROXINE 88 MCG TAB PO SCH (20:43)
[2020-10-01] MEDS: FERROUS SULFATE 325 MG TAB PO SCH (20:43)
[2020-10-01] MEDS: NYSTATIN 100,000 UNIT/GM POWD 15 GM TOPICAL SCH (20:43)
[2020-10-01] MEDS: HYDROCORTISONE SUPPOSITORY 25 MG SUPP RECTAL SCH (20:43)
[2020-10-02] MEDS: PANTOPRAZOLE 40 MG TABLET PO SCH (06:46)
[2020-10-02] MEDS: carvediloL 6.25 MG TAB PO SCH ×2 (06:46→16:33)
[2020-10-02] MEDS: DOBUTamine DRIP 500 MG in DEXTROSE/WATER 1 250ML.BAG IV SCH (07:25)
[2020-10-02] MEDS: FUROSEMIDE 100 MG in SODIUM CHLORIDE 0.9% 90 ML IV SCH ×3 (07:35→23:26)
[2020-10-02 08:22] LABS: Anisocytosis Slight; Basophils % (A) 0 %; Eosinophils # (A) 0.3 k/uL (0-0.7); Eosinophils % (A) 4 %; HGB 10.7 gm/dL (13.0-17.5); Lymphocytes # (A) 0.5 k/uL (1.0-4.8); Lymphocytes % (A) 6 %; MCH 29.4 pg (25.0-35.0); MCHC 32.6 g/dL (31.0-37.0); MCV 90.4 fL (80.0-100.0); Mean Platelet Volume 7.8; Monocytes # (A) 0.7 k/uL (0-1.0); Monocytes % (A) 8 %; Neutrophils # (A) 6.8 k/uL (1.3-7.7); Neutrophils % (A) 79 %; Platelet Count 272 k/uL (150-450); RBC 3.65 m/uL (4.30-5.90); RDW 16.2 % (11.5-15.5); WBC 8.5 k/uL (3.8-10.6)
[2020-10-02 08:36] LABS: Albumin 4.1 g/dL (3.5-5.0); Calcium 9.2 mg/dL (8.4-10.2); Potassium 4.2 mmol/L (3.5-5.1); Total Bilirubin 0.3 mg/dL (0.2-1.3); Total Protein 6.5 g/dL (6.3-8.2)
[2020-10-02] MEDS: APIXABAN 2.5 MG TABLET PO SCH ×2 (09:01→21:23)
[2020-10-02] MEDS: allopurinoL 100 MG TAB PO SCH (09:01)
[2020-10-02] MEDS: HYDROCORTISONE SUPPOSITORY 25 MG SUPP RECTAL SCH ×2 (09:02→21:23)
[2020-10-02] MEDS: hydrALAZINE HCL 10 MG TAB PO SCH (09:04)
[2020-10-02] MEDS: hydrALAZINE HCL 25 MG TAB PO SCH ×3 (09:05→21:23)
[2020-10-02] MEDS: NYSTATIN 100,000 UNIT/GM POWD 15 GM TOPICAL SCH ×2 (09:08→21:24)
--- NOTE | 2020-10-02 09:29 | P.PN ---
Subjective Progress Note Date: 10/02/20 Sean Lin is an 80-year-old male patient who presented to the ER with complaints of increasing shortness of breath over the past few months. Patient also reports swelling to lower extremities. Patient has a past medical history of A. fib, heart failure, COPD, GERD, GI bleed, hypertension, thyroid disorder. BNP elevated at 42,400. Mildly elevated troponin 0.071 and 0.098. Patient's creatinine 2.59 and bun 69 this does appear on patient's baseline. Patient also elevated d-dimer 1.46. VQ scan ordered due to chronic kidney disease. At that time cardiology services will be consulted. Patient started on IV Lasix. Upon examination feet found cold to touch bilaterally right greater than left with swelling and erythema tender to touch. Will start patient on Rocephin for cellulitis. Will consult vascular surgery due to concerns of arterial disease. Will order venous Doppler to rule out DVT. This time patient denies chest pain. Patient does complain of shortness of breath. Patient denies nausea vomiting or diarrhea. Patient denies any urinary burning or frequency. On 09/26/2020 patient was seen and examined on the telemetry floor he is alert and oriented 3 in no apparent distress he is complaining of pain in both feet he is also complaining of shortness of breath with any activity, otherwise he denies any complaint. There is no fever or chills no headache or dizziness no chest pain, no palpitation no cough no nausea or vomiting no abdominal pain no diarrhea no blood in the stools no burning with urination no frequency or urgency and no hematuria, there is no weakness or numbness in any of the extremities no change in vision speech or gait. D-dimer was elevated at 1.46, patient underwent VQ scan that was low probability for pulmonary embolism, bilateral lower extremity Doppler is still pending, patient also had elevated troponin levels at 0.071, 0.098, 0.092 cardiology are consulted, echocardiogram done patient remains on IV heparin at this time, PTT is therapeutic at 91.9, patient has known history of chronic kidney disease at this time BUN is 74 creatinine 2.33 he was seen in the past by Dr. Rojas, Will place a consult for nephrology for follow-up. On 09/27/2020 patient is alert and oriented 3 resting comfortably in bed. Patient does report improvement with overall shortness of breath. Patient remains on IV Lasix. He was started on eliquis per cardiology services for proximal atrial fibrillation. Arterial ultrasound of the lower extremity is ordered per vascular surgery. At this time patient denies any chest pain or shortness of breath. Patient denies nausea vomiting or diarrhea. Patient denies any urinary burning or frequency. Cardiology, nephrology, infectious disease and vascular surgery are following On 09/28/2020 Patient was seen and examined on the medical floor, he is alert and oriented x 3 in no distress, he denies any complaints there is no fever or chills no headache or dizziness no chest pain no shortness of breath no palpitation no cough no nausea or vomiting no abdominal pain no diarrhea no blood in the stools no burning with urination no frequency or urgency and no hematuria, there is no weakness or numbness in any of the extremities no change in vision speech or gait. Patient is still complaining of severe swelling and erythema and tenderness in his bilateral feet, otherwise he denies any complaints at this time. On 09/29/2020 patient was seen and examined on the medical floor he is alert and oriented 3 in no distress he is complaining of lower extremity pain and swelling otherwise he denies any complaints at this time there is no fever or chills no headache or dizziness no chest pain no shortness of breath no cough no nausea or vomiting no abdominal pain no diarrhea no blood in the stools no burning with urination no frequency or urgency and no hematuria On 09/30/2020 patient is alert and oriented 3 patient is complaining of lower extremity pain and swelling perfusing Chano wraps. Patient also educated on the importance of elevation while in bed. Creatinine 3.01 and bun 81. Patient was started on dobutamine per nephrology services Lasix increased. At this time patient denies chest pain or shortness of breath. Patient denies nausea vomiting or diarrhea. Patient denies any urinary burning or frequency On 10/01/2020 patient was seen and examined on the medical floor, he is alert and oriented 3 he is complaining of lower extremity pain and swelling perfusing Chano wraps. Patient also educated on the importance of elevation while in bed. Creatinine 3.01 and bun 81. Patient was started on dobutamine per nephrology services Lasix increased. At this time patient denies chest pain or shortness of breath. Patient denies nausea vomiting or diarrhea. Patient denies any urinary burning or frequency. He was evaluated by nephrology and was started on insulin drip, patient had arterial study on the lower extremities he will be reevaluated by vascular surgery. On 10/02/2020 patient is alert and oriented 3. Patient has been started on Lasix drip per nephrology remains on dobutamine drip. Weight down from 87.4 kg to 87 kg. Creatinine 3.26 and bun 91. At this time patient denies chest pain or shortness of breath. Patient denies nausea vomiting or diarrhea. Patient denies any urinary burning or frequency Objective - Vital Signs Vital signs: Vital Signs Temp 98.1 F 10/02/20 08:00 Pulse 60 10/02/20 08:00 Resp 18 10/02/20 08:00 BP 170/76 10/02/20 08:00 Pulse Ox 98 10/02/20 08:00 Intake & Output 10/01/20 10/02/20 10/02/20 18:59 06:59 18:59 Intake Total 1520 314.833 94.5 Output Total 1050 1125 750 Balance 470 -810.167 -655.5 Weight 87 kg Intake: Intake, IV Titration 314.833 94.5 Amount DOBUTamine DRIP 500 mg In 250 Dextrose/Water 1 250ml. bag @ 2.5 MCG/KG/MIN 6.87 mls/hr IV .Q24H [facility] Rx#: [id number] Furosemide 100 mg In 64.833 94.5 Sodium Chloride 0.9% 90 ml @ 10 MG/HR 10 mls/hr IV .Q10H [facility] Rx#: [id number] Oral 1520 Output: Urine 1050 1125 750 Other: # Bowel Movements 1 - Exam In general patient is alert and oriented 3 in no distress Head normocephalic and atraumatic Neck supple no JVD no goiter Lungs diminished bilaterally no crackles no wheezing Heart regular rate and rhythm S1-S2, no rub or gallop Abdomen is soft nontender nondistended positive bowel sounds no hepatosplenomeg sophie Extremities +3 pedal edema noted to right side. Left +1. Bilateral spread is noted to feet. Neuro no gross focal neurological deficit - Labs CBC & Chem 7: 10/02/20 07:58 10/02/20 07:58 Labs: Abnormal Lab Results - Last 24 Hours (Table) 10/02/20 10/02/20 Range/Units 07:58 07:58 RBC 3.65 L (4.30-5.90) m/uL Hgb 10.7 L (13.0-17.5) gm/dL Hct 33.0 L (39.0-53.0) % RDW 16.2 H (11.5-15.5) % Lymphocytes # 0.5 L (1.0-4.8) k/uL BUN 91 H (9-20) mg/dL Creatinine 3.26 H (0.66-1.25) mg/dL Glucose 107 H (74-99) mg/dL Assessment and Plan Assessment: 1. Shortness breath secondary to acute on chronic systolic CHF exacerbation. BNP elevated at 43,000. Patient started on IV Lasix. Cardiomegaly with diffuse bilateral perihilar reticular opacities compatible with interstitial pulmonary disease. 2. Elevated d-dimer. D-dimer 1.46. Venous Doppler ordered to rule out DVT. VQ scan completed showing low probability of PE 3. Elevated troponins. Cardiology services following. 4. Cellulitis to lower extremities. She started on Rocephin. Infectious disease consulted IV antibiotics DC'd 5. Coolness noted to bilateral feet. Vascular surgery consulted. Arterial ultrasound of lower extremity is ordered 6. Chronic kidney disease stage III. Creatinine 2.5 and bun 69 this does appear on patient's baseline. Nephrology services following. Dobutamine added. Lasix increased. Lasix drips added per nephrology 7. 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 History of COPD 9. Paroxysmal atrial fibrillation. Patient started on eliquis per cardiology services DVT prophylaxis heparin drip. GI prophylaxis Protonix Cardiology, nephrology, infectious disease and vascular surgery following Patient remains on Lasix and dobutamine drip.
[2020-10-02] MEDS: ALBUTEROL HFA INHALER INHALATION PRN (11:21)
--- NOTE | 2020-10-02 11:40 | P.PN ---
Subjective Progress Note Date: 10/02/20 Principal diagnosis: Lower extremity swelling Patient was seen and examined sitting up at the bedside. He is complaining of continued pain and swelling to his lower extremities. We have seen this patient this past week on consult and discuss with patient importance of elevating his lower extremities and using compression stockings or Chano wraps to improve his swelling. He is currently admitted for congestive heart failure exacerbation who was noncompliant with medications at home. He continues to state he will not wrap his lower extremities does not like to have them elevated. Underwent an arterial study of the lower extremities which showed moderate bilateral thumb popped disease. SYEDA 0.5 on the right and 0.56 on the left. Plan was outpatient follow-up with vascular surgery for further workup. Objective - Vital Signs Vital signs: Vital Signs Temp 98.1 F 10/02/20 08:00 Pulse 60 10/02/20 08:00 Resp 18 10/02/20 08:00 BP 170/76 10/02/20 08:00 Pulse Ox 98 10/02/20 08:00 Intake & Output 10/01/20 10/02/20 10/02/20 18:59 06:59 18:59 Intake Total 1520 314.833 94.5 Output Total 1050 1125 750 Balance 470 -810.167 -655.5 Weight 87 kg Intake: Intake, IV Titration 314.833 94.5 Amount DOBUTamine DRIP 500 mg In 250 Dextrose/Water 1 250ml. bag @ 2.5 MCG/KG/MIN 6.87 mls/hr IV .Q24H [facility] Rx#: [id number] Furosemide 100 mg In 64.833 94.5 Sodium Chloride 0.9% 90 ml @ 10 MG/HR 10 mls/hr IV .Q10H [facility] Rx#: [id number] Oral 1520 Output: Urine 1050 1125 750 Other: # Bowel Movements 1 - Exam General appearance: The patient is alert, oriented, in no acute distress. HET: Head is normocephalic and atraumatic. Neck: Supple without lymphadenopathy. Trachea midline. Extremities: Bilateral feet with +2 pitting edema, redness to the dorsal aspect of feet and toes. Tender to palpation especially in his toes. Bilateral posterior tibialis and dorsalis pedis Doppler signal. Neurological: No focal deficits. Strength and sensation are grossly intact. - Labs CBC & Chem 7: 05/21/21 07:58 10/02/20 07:58 Labs: Abnormal Lab Results - Last 24 Hours (Table) 10/02/20 10/02/20 Range/Units 07:58 07:58 RBC 3.65 L (4.30-5.90) m/uL Hgb 10.7 L (13.0-17.5) gm/dL Hct 33.0 L (39.0-53.0) % RDW 16.2 H (11.5-15.5) % Lymphocytes # 0.5 L (1.0-4.8) k/uL BUN 91 H (9-20) mg/dL Creatinine 3.26 H (0.66-1.25) mg/dL Glucose 107 H (74-99) mg/dL Assessment and Plan Assessment: 1. Bilateral lower extremity edema 2. Pain to bilateral lower extremities, secondary to above 3. Moderate bilateral fem-pop disease, SYEDA 0.5 on right and 0.56, 4. CHF exacerbation 5. Medical noncompliance 6. History of chronic kidney disease 7. History of atrial fibrillation status post pacemaker 8. History of COPD Plan: Continue with previous recommendations floating compression stockings or Chano wrapped to bilateral lower extremities to reduce swelling, and outpatient follow-up with vascular surgery. Her no acute indications for any vascular surg ical intervention at this time. Continue current medical management. Thank you for this consultation, we will continue to follow The impression and plan of care has been dictated as directed. Dr. Salamanca I performed a history and examination of this patient, discussed the same with the dictator. I agree with the dictator's note ,documented as a scribe. Any additional findings or plans will be noted.
--- NOTE | 2020-10-02 11:47 | P.PN ---
Subjective This is a pleasant 80-year-old male past medical history significant for chronic systolic heart failure with reduced ejection fraction, high degree AV block, sick sinus syndrome s/p Bi-ventricular PPM (09/2019), chronic systolic heart failure with reduced EF, valvular heart disease with mixed moderate aortic stenosis and moderate aortic regurgitation, mild mitral stenosis, chronic kidney disease, former nicotine dependence, paroxysmal atrial fibrillation. He currently follows in the office with Dr. Owusu. We have been asked to see in consultation for congestive heart failure. Patient presents to the emergency department with worsening shortness of breath, dyspnea on exertion, lower extremity edema and symptoms of orthopnea. Patient denies history of stroke or diabetes. He is a former smoker quit last year. BNP 43,400 (23,000 in 03/2020). Started on IV Lasix. Troponin 0.07, 0.09 (patient with chronically elevated troponin). Hypertensive on admission BP 180s/60s HR 60s, afebrile. 10/02/2020 Pt is seen and examined sitting up in bed in no acute distress. He denies shortness of breath or chest pain. His swelling is starting to improve slightly in his legs, still significant in his feet. Blood pressure 170/76 heart rate 60 afebrile and maintaining oxygen saturation on room air. Laboratory data reviewed, EDC 8.5, hemoglobin 10.7, platelets 272, sodium 141, potassium 4.2, creatinine 3.26. The patient states he had a nosebleed last night. 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 According to the patient he was told this many years ago and he never followed up. GENERAL: Well-appearing, well-nourished and in no acute distress. NECK: Supple without JVD or thyromegaly. LUNGS: Breath sounds clear to auscultation bilaterally. Respiration equal and unlabored. No wheezes, rales or rhonchi. HEART: Regular rate and rhythm with systolic ejection murmur at the base, no rubs or gallops. S1 and S2 heard. EXTREMITIES: Normal range of motion, 1+ bilateral lower extremity pitting edema. Evidence of weeping bilaterally. Bilateral foot non-pitting edema and erythema. No clubbing or cyanosis. Peripheral pulses intact. ASSESSMENT Acute on chronic systolic heart failure, ejection fraction 30-35% Elevated troponin, not related to ACS Sick sinus syndrome status post permanent pacemaker implantation Valvular heart disease Chronic persistent atrial fibrillation on long-term anticoagulation Hypertension Chronic kidney disease History of noncompliance PLAN Diuretics per nephrology. Currently maintained on lasix and dobutamine infusion Discontinue dobutamine. Has been 3 days with no real improvement. Hydralazine added for blood pressure. Will increase as needed. Follow renal function and electrolytes in the morning. Nurse Practitioner note has been reviewed, I agree with a documented findings and plan of care. Patient was seen and examined. Objective - Vital Signs Vital signs: Vital Signs Temp 98.1 F 10/02/20 08:00 Pulse 60 10/02/20 08:00 Resp 18 10/02/20 08:00 BP 170/76 10/02/20 08:00 Pulse Ox 98 10/02/20 08:00 Intake & Output 10/01/20 10/02/20 10/02/20 18:59 06:59 18:59 Intake Total 1520 314.833 334.5 Output Total 1050 1125 750 Balance 470 -810.167 -415.5 Weight 87 kg Intake: Intake, IV Titration 314.833 94.5 Amount DOBUTamine DRIP 500 mg In 250 Dextrose/Water 1 250ml. bag @ 2.5 MCG/KG/MIN 6.87 mls/hr IV .Q24H [facility] Rx#: [id number] Furosemide 100 mg In 64.833 94.5 Sodium Chloride 0.9% 90 ml @ 10 MG/HR 10 mls/hr IV .Q10H [facility] Rx#: [id number] Oral 1520 240 Output: Urine 1050 1125 750 Other: # Bowel Movements 1 - Labs CBC & Chem 7: 10/02/20 07:58 10/02/20 07:58 Labs: Abnormal Lab Results - Last 24 Hours (Table) 10/02/20 10/02/20 Range/Units 07:58 07:58 RBC 3.65 L (4.30-5.90) m/uL Hgb 10.7 L (13.0-17.5) gm/dL Hct 33.0 L (39.0-53.0) % RDW 16.2 H (11.5-15.5) % Lymphocytes # 0.5 L (1.0-4.8) k/uL BUN 91 H (9-20) mg/dL Creatinine 3.26 H (0.66-1.25) mg/dL Glucose 107 H (74-99) mg/dL
--- NOTE | 2020-10-02 15:56 | PN ---
PROGRESS NOTE DATE OF SERVICE: 10/02/2020 REASON FOR FOLLOWUP: 1. Bilateral feet swelling, redness with concern for cellulitis. 2. Athlete's foot. INTERVAL HISTORY: The patient is afebrile. The patient is breathing comfortably. Patient denies having any chest pain, shortness of breath. Occasional cough. No abdominal pain. Still having swelling to bilateral feet. Redness slightly decreased. PHYSICAL EXAMINATION: Blood pressure 153/68 with a pulse of 60, temperature is 97.6. He is 98% on room air. General description is an elderly male up in the bed in no distress. RESPIRATORY SYSTEM: Unlabored breathing, decreased breath sounds at the bases. No wheeze. HEART: S1, S2. Regular rate and rhythm. ABDOMEN: Soft. No tenderness. Bilateral feet are swollen. Some redness but no warmth. No blister, no drainage. LABS: Hemoglobin is 10.7, white count 8.5. BUN of 91, creatinine 3.26. DIAGNOSTIC IMPRESSION AND PLAN: 1. Patient with bilateral foot swelling related to clinically not behaving as cellulitis. Antibiotic has been completed. Patient monitored closely off antibiotic therapy. 2. Athlete's foot. Continue nystatin powder in between the toe and continue supportive care. MMODL / IJN: [id number] /
[2020-10-02] MEDS: metOLazone 5 MG TAB PO SCH (16:39)
--- NOTE | 2020-10-02 18:42 | PN ---
PROGRESS NOTE The patient is seen for followup for acute kidney injury mostly cardiorenal, maintained on dobutamine and Lasix drip which was started yesterday. The patient's 24 hour output was about 2.1 L which is not significantly increased from before. The patient is not complaining of significant shortness of breath. His lower extremity edema persists. His weight is down slightly over the last 2 days. PHYSICAL EXAMINATION: On examination today, blood pressure is 153/68, heart rate 60 per minute. He is afebrile. Examination of the heart S1, S2. Examination of the lungs, decreased breath sounds at bases. Basal crackles are heard. Abdomen is soft, nontender. Examination of lower extremities shows significant edema bilaterally with edema noted in the lower extremities. [employer] exam is grossly intact. LAB: Show sodium 141, potassium 4.2, chloride 102, BUN 91, serum creatinine 3.26, hemoglobin 10.7 g/dL. ASSESSMENT: 1. Acute kidney injury cardiorenal with volume overload, maintained on Lasix drip. Patient was on dobutamine as ejection fraction has been 30-35 percent. He did not have any significant improvement with the dobutamine and it was discontinued today. 2. Cardiomyopathy, ejection fraction 30%. 3. 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 Baseline creatinine 2- 2.4 mg/dL. 4. Lower extremity wounds and cellulitis. 5. Congestive heart failure, acute on top of chronic, mostly systolic. PLAN: Add Zaroxolyn. Continue with the Lasix drip. Serum creatinine has increased slightly. We will recheck labs tomorrow and continue to check accurate I's and O's. MMODL / IJN: [id number] /
[2020-10-02] MEDS: FERROUS SULFATE 325 MG TAB PO SCH (21:23)
[2020-10-02] MEDS: LEVOTHYROXINE 88 MCG TAB PO SCH (21:23)
[2020-10-02] MEDS: DOCUSATE 100 MG CAP PO SCH (21:24)
[2020-10-02] MEDS: HYDROmorphone 0.5 MG/0.5 ML SYRINGE IVP PRN (21:30)
[2020-10-03] MEDS: FUROSEMIDE 100 MG in SODIUM CHLORIDE 0.9% 90 ML IV SCH ×3 (06:31→20:05)
[2020-10-03] MEDS: carvediloL 6.25 MG TAB PO SCH ×2 (06:33→17:07)
[2020-10-03] MEDS: PANTOPRAZOLE 40 MG TABLET PO SCH (06:33)
[2020-10-03 08:38] LABS: Anisocytosis Slight; Basophils % (A) 0 %; Eosinophils # (A) 0.3 k/uL (0-0.7); Eosinophils % (A) 4 %; HCT 32.5 % (39.0-53.0); HGB 10.7 gm/dL (13.0-17.5); Lymphocytes # (A) 0.6 k/uL (1.0-4.8); Lymphocytes % (A) 8 %; MCH 29.8 pg (25.0-35.0); MCHC 32.8 g/dL (31.0-37.0); MCV 90.6 fL (80.0-100.0); Mean Platelet Volume 8.9; Monocytes # (A) 0.5 k/uL (0-1.0); Monocytes % (A) 7 %; Neutrophils # (A) 6.3 k/uL (1.3-7.7); Neutrophils % (A) 80 %; Platelet Count 243 k/uL (150-450); RBC 3.59 m/uL (4.30-5.90); RDW 16.1 % (11.5-15.5); WBC 7.8 k/uL (3.8-10.6)
[2020-10-03] MEDS: hydrALAZINE HCL 25 MG TAB PO SCH ×3 (08:43→20:06)
[2020-10-03] MEDS: HYDROmorphone 0.5 MG/0.5 ML SYRINGE IVP PRN (08:44)
[2020-10-03] MEDS: NYSTATIN 100,000 UNIT/GM POWD 15 GM TOPICAL SCH ×2 (08:44→20:07)
[2020-10-03] MEDS: APIXABAN 2.5 MG TABLET PO SCH ×2 (08:44→20:06)
[2020-10-03] MEDS: allopurinoL 100 MG TAB PO SCH (08:44)
[2020-10-03] MEDS: metOLazone 5 MG TAB PO SCH (08:44)
[2020-10-03 08:49] LABS: Albumin 3.9 g/dL (3.5-5.0); Calcium 9.1 mg/dL (8.4-10.2); Potassium 3.7 mmol/L (3.5-5.1); Total Bilirubin 0.4 mg/dL (0.2-1.3); Total Protein 6.2 g/dL (6.3-8.2)
--- NOTE | 2020-10-03 09:39 | P.PN ---
Subjective Progress Note Date: 10/03/20 Principal diagnosis: This is a 80-year-old male seen in consultation because of acute kidney injury from cardiorenal syndrome. He came in with shortness of breath, cellulitis of both legs, significant edema, COPD, known with atrial fibrillation cardiomyopathy with ejection fraction 30%. He has chronic kidney disease with and cramps 2. Etiology nephrosclerosis. His creatinine has improved slightly is on Lasix. Urine output is reviewed patient is a she is 2-4 liters daily for the last few days. He denies any dizziness. He remains short of breath though. Objective - Vital Signs Vital signs: Vital Signs Temp 98.1 F 10/03/20 08:00 Pulse 56 L 10/03/20 08:00 Resp 16 10/03/20 08:00 BP 161/70 10/03/20 08:00 Pulse Ox 94 L 10/03/20 08:00 Intake & Output 10/02/20 10/03/20 10/03/20 18:59 06:59 18:59 Intake Total 664.0 200 Output Total 1450 2700 Balance -786.0 -2500 Weight 85.9 kg Intake: Intake, IV Titration 184.0 200 Amount Furosemide 100 mg In 184.0 200 Sodium Chloride 0.9% 90 ml @ 10 MG/HR 10 mls/hr IV .Q10H [facility] Rx#: [id number] Oral 480 Output: Urine 1450 2700 On examination is awake alert oriented comfortable A chin exam no JVP neck is supple no facial asymmetry Lungs are clear to auscultation fairly good air entry bilaterally Heart sounds are unremarkable for any murmur rub gallop Abdomen soft nontender Extremity exam reveals 2-3+ edema with redness both legs and feet. Neurologically awake alert oriented comfortable - Labs CBC & Chem 7: 10/03/20 08:26 10/03/20 08:26 Labs: Abnormal Lab Results - Last 24 Hours (Table) 10/03/20 10/03/20 Range/Units 08:26 08:26 RBC 3.59 L (4.30-5.90) m/uL Hgb 10.7 L (13.0-17.5) gm/dL Hct 32.5 L (39.0-53.0) % RDW 16.1 H (11.5-15.5) % Lymphocytes # 0.6 L (1.0-4.8) k/uL BUN 96 H (9-20) mg/dL Creatinine 3.03 H (0.66-1.25) mg/dL Glucose 183 H (74-99) mg/dL Total Protein 6.2 L (6.3-8.2) g/dL Assessment and Plan Plan: Impression 1. Acute kidney injury from cardiorenal syndrome, as well as an element from bilateral leg cellulitis, improving with aggressive diuresis. 2. 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 3. Anemia secondary to chronic kidney disease hemoglobin was 10.7 adequate. Rule out iron deficiency 4. Bilateral cellulitis of legs. 5. History of atrial fibrillation, COPD, cardiomyopathy. Recommendation 1. Maintain Lasix currently on a Lasix drip, as well as metolazone 5 mg daily. 2. Monitor labs urine output blood pressures and watch for orthostatic changes. 3. Antibiotics as per primary team
[2020-10-03] MEDS: HYDROCORTISONE SUPPOSITORY 25 MG SUPP RECTAL SCH ×2 (11:44→23:49)
--- NOTE | 2020-10-03 15:42 | P.PN ---
Subjective Progress Note Date: 10/03/20 Sean Lin is an 80-year-old male patient who presented to the ER with complaints of increasing shortness of breath over the past few months. Patient also reports swelling to lower extremities. Patient has a past medical history of A. fib, heart failure, COPD, GERD, GI bleed, hypertension, thyroid disorder. BNP elevated at 42,400. Mildly elevated troponin 0.071 and 0.098. Patient's creatinine 2.59 and bun 69 this does appear on patient's baseline. Patient also elevated d-dimer 1.46. VQ scan ordered due to chronic kidney disease. At that time cardiology services will be consulted. Patient started on IV Lasix. Upon examination feet found cold to touch bilaterally right greater than left with swelling and erythema tender to touch. Will start patient on Rocephin for cellulitis. Will consult vascular surgery due to concerns of arterial disease. Will order venous Doppler to rule out DVT. This time patient denies chest pain. Patient does complain of shortness of breath. Patient denies nausea vomiting or diarrhea. Patient denies any urinary burning or frequency. On 09/26/2020 patient was seen and examined on the telemetry floor he is alert and oriented 3 in no apparent distress he is complaining of pain in both feet he is also complaining of shortness of breath with any activity, otherwise he denies any complaint. There is no fever or chills no headache or dizziness no chest pain, no palpitation no cough no nausea or vomiting no abdominal pain no diarrhea no blood in the stools no burning with urination no frequency or urgency and no hematuria, there is no weakness or numbness in any of the extremities no change in vision speech or gait. D-dimer was elevated at 1.46, patient underwent VQ scan that was low probability for pulmonary embolism, bilateral lower extremity Doppler is still pending, patient also had elevated troponin levels at 0.071, 0.098, 0.092 cardiology are consulted, echocardiogram done patient remains on IV heparin at this time, PTT is therapeutic at 91.9, patient has known history of chronic kidney disease at this time BUN is 74 creatinine 2.33 he was seen in the past by Dr. Rojas, Will place a consult for nephrology for follow-up. On 09/27/2020 patient is alert and oriented 3 resting comfortably in bed. Patient does report improvement with overall shortness of breath. Patient remains on IV Lasix. He was started on eliquis per cardiology services for proximal atrial fibrillation. Arterial ultrasound of the lower extremity is ordered per vascular surgery. At this time patient denies any chest pain or shortness of breath. Patient denies nausea vomiting or diarrhea. Patient denies any urinary burning or frequency. Cardiology, nephrology, infectious disease and vascular surgery are following On 09/28/2020 Patient was seen and examined on the medical floor, he is alert and oriented x 3 in no distress, he denies any complaints there is no fever or chills no headache or dizziness no chest pain no shortness of breath no palpitation no cough no nausea or vomiting no abdominal pain no diarrhea no blood in the stools no burning with urination no frequency or urgency and no hematuria, there is no weakness or numbness in any of the extremities no change in vision speech or gait. Patient is still complaining of severe swelling and erythema and tenderness in his bilateral feet, otherwise he denies any complaints at this time. On 09/29/2020 patient was seen and examined on the medical floor he is alert and oriented 3 in no distress he is complaining of lower extremity pain and swelling otherwise he denies any complaints at this time there is no fever or chills no headache or dizziness no chest pain no shortness of breath no cough no nausea or vomiting no abdominal pain no diarrhea no blood in the stools no burning with urination no frequency or urgency and no hematuria On 09/30/2020 patient is alert and oriented 3 patient is complaining of lower extremity pain and swelling perfusing Chano wraps. Patient also educated on the importance of elevation while in bed. Creatinine 3.01 and bun 81. Patient was started on dobutamine per nephrology services Lasix increased. At this time patient denies chest pain or shortness of breath. Patient denies nausea vomiting or diarrhea. Patient denies any urinary burning or frequency On 10/01/2020 patient was seen and examined on the medical floor, he is alert and oriented 3 he is complaining of lower extremity pain and swelling perfusing Chano wraps. Patient also educated on the importance of elevation while in bed. Creatinine 3.01 and bun 81. Patient was started on dobutamine per nephrology services Lasix increased. At this time patient denies chest pain or shortness of breath. Patient denies nausea vomiting or diarrhea. Patient denies any urinary burning or frequency. He was evaluated by nephrology and was started on insulin drip, patient had arterial study on the lower extremities he will be reevaluated by vascular surgery. On 10/02/2020 patient is alert and oriented 3. Patient has been started on Lasix drip per nephrology remains on dobutamine drip. Weight down from 87.4 kg to 87 kg. Creatinine 3.26 and bun 91. At this time patient denies chest pain or shortness of breath. Patient denies nausea vomiting or diarrhea. Patient denies any urinary burning or frequency On 10/03/2020 patient is alert and oriented 3. He is still complaining of bilateral lower extremity edema and pain in the dorsal aspects of both feet due to severe edema , otherwise he denies any complaints at this time there is no fever or chills no headache or dizziness no chest pain he has mild shortness of breath with activity no shortness of breath at rest no nausea or vomiting no abdominal pain no diarrhea and no urinary symptoms Patient has been started on Lasix drip per nephrology remains on dobutamine drip. Weight down to 85.9 kg. Creatinine 3.26 and bun 91. At this time patient denies chest pain or shortness of breath. Patient denies nausea vomiting or diarrhea. Patient denies any urinary burning or frequency Objective - Vital Signs Vital signs: Vital Signs Temp 98.1 F 10/03/20 08:00 Pulse 56 L 10/03/20 08:00 Resp 16 10/03/20 08:00 BP 161/70 10/03/20 08:00 Pulse Ox 94 L 10/03/20 08:00 Intake & Output 10/02/20 10/03/20 10/03/20 18:59 06:59 18:59 Intake Total 664.0 200 Output Total 1450 2700 Balance -786.0 -2500 Weight 85.9 kg Intake: Intake, IV Titration 184.0 200 Amount Furosemide 100 mg In 184.0 200 Sodium Chloride 0.9% 90 ml @ 10 MG/HR 10 mls/hr IV .Q10H [facility] Rx#: [id number] Oral 480 Output: Urine 1450 2700 - Exam In general patient is alert and oriented 3 in no distress Head normocephalic and atraumatic Neck supple no JVD no goiter Lungs diminished bilaterally no crackles no wheezing Heart regular rate and rhythm S1-S2, no rub or gallop Abdomen is soft nontender nondistended positive bowel sounds no hepatosplenomegaly Extremities +3 pedal edema noted to right side. Left +1. Bilateral spread is noted to feet. Neuro no gross focal neurological deficit - Labs CBC & Chem 7: 10/03/20 08:26 10/03/20 08:26 Labs: Abnormal Lab Results - Last 24 Hours (Table) 10/03/20 10/03/20 Range/Units 08:26 08:26 RBC 3.59 L (4.30-5.90) m/uL Hgb 10.7 L (13.0-17.5) gm/dL Hct 32.5 L (39.0-53.0) % RDW 16.1 H (11.5-15.5) % Lymphocytes # 0.6 L (1.0-4.8) k/uL BUN 96 H (9-20) mg/dL Creatinine 3.03 H (0.66-1.25) mg/dL Glucose 183 H (74-99) mg/dL Total Protein 6.2 L (6.3-8.2) g/dL Assessment and Plan Assessment: 1. Shortness breath secondary to acute on chronic systolic CHF exacerbation. BNP elevated at 43,000. Patient started on IV Lasix. Cardiomegaly with diffuse bilateral perihilar reticular opacities compatible with interstitial pulmonary disease. 2. Elevated d-dimer. D-dimer 1.46. Venous Doppler ordered to rule out DVT. VQ scan completed showing low probability of PE 3. Elevated troponins. Cardiology services following. 4. Cellulitis to lower extremities. She started on Rocephin. Infectious disease consulted IV antibiotics DC'd 5. Coolness noted to bilateral feet. Vascular surgery consulted. Arterial ultrasound of lower extremity is ordered 6. Chronic kidney disease stage III. Creatinine 2.5 and bun 69 this does appear on patient's baseline. Nephrology services following. Dobutamine added. Lasix increased. Lasix drips added per nephrology 7. 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 History of COPD 9. Paroxysmal atrial fibrillation. Patient started on eliquis per cardiology services DVT prophylaxis heparin drip. GI prophylaxis Protonix Cardiology, nephrology, infectious disease and vascular surgery following Patient remains on Lasix and dobutamine drip.
[2020-10-03] MEDS: LEVOTHYROXINE 88 MCG TAB PO SCH (20:05)
[2020-10-03] MEDS: DOCUSATE 100 MG CAP PO SCH (20:06)
[2020-10-03] MEDS: FERROUS SULFATE 325 MG TAB PO SCH (20:06)
[2020-10-03] MEDS: ALBUTEROL HFA INHALER INHALATION PRN (20:41)
--- NOTE | 2020-10-03 23:24 | PN ---
PROGRESS NOTE DATE OF SERVICE: 10/03/2020 REASON FOR FOLLOWUP: Bilateral feet swelling, possible fluid related and question of cellulitis. INTERVAL HISTORY: The patient is afebrile. The patient is breathing comfortably. No nausea, no vomiting. No abdominal pain or diarrhea. PHYSICAL EXAMINATION: Blood pressure 157/63 with a pulse of 70, temperature is 97.8. He is 94% on room air. General description: The patient is an elderly male up in the in no distress. Respiratory system: Unlabored breathing, some coarse breath sounds at the base. No wheeze. HEART: S1, S2. Regular rate and rhythm. ABDOMEN: Soft, no tenderness. Bilateral legs are currently wrapped up. No drainage on the dressing. LABS: Hemoglobin is 10.7, white count 7.8. BUN of 96, creatinine 3.03. DIAGNOSTIC IMPRESSION AND PLAN: 1. Patient with bilateral lower extremity and feet swelling. Clinically not behaving as an osteo. The patient to continue with Chano wrap to the leg to keep the swelling down. No need for systemic antibiotics. 2. Athlete's foot to continue with nystatin powder in between the toes. MMODL / IJN: [id number] /
[2020-10-04] MEDS: FUROSEMIDE 100 MG in SODIUM CHLORIDE 0.9% 90 ML IV SCH ×3 (02:27→20:51)
[2020-10-04] MEDS: carvediloL 6.25 MG TAB PO SCH ×2 (06:52→16:40)
[2020-10-04] MEDS: PANTOPRAZOLE 40 MG TABLET PO SCH (06:52)
[2020-10-04] MEDS: APIXABAN 2.5 MG TABLET PO SCH ×2 (10:04→20:49)
[2020-10-04] MEDS: hydrALAZINE HCL 25 MG TAB PO SCH ×3 (10:04→20:49)
[2020-10-04] MEDS: metOLazone 5 MG TAB PO SCH (10:04)
[2020-10-04] MEDS: allopurinoL 100 MG TAB PO SCH (10:04)
[2020-10-04] MEDS: NYSTATIN 100,000 UNIT/GM POWD 15 GM TOPICAL SCH ×2 (10:05→20:50)
[2020-10-04 10:19] LABS: Basophils # (A) 0.1 k/uL (0-0.2); Basophils % (A) 1 %; Eosinophils # (A) 0.4 k/uL (0-0.7); Eosinophils % (A) 4 %; HGB 11.3 gm/dL (13.0-17.5); Lymphocytes # (A) 0.6 k/uL (1.0-4.8); Lymphocytes % (A) 6 %; MCHC 33.3 g/dL (31.0-37.0); Mean Platelet Volume 8.8; Monocytes # (A) 0.8 k/uL (0-1.0); Monocytes % (A) 9 %; Neutrophils # (A) 7.5 k/uL (1.3-7.7); Neutrophils % (A) 80 %; Platelet Count 276 k/uL (150-450); RBC 3.78 m/uL (4.30-5.90); RDW 15.9 % (11.5-15.5); WBC 9.5 k/uL (3.8-10.6)
[2020-10-04 10:33] LABS: Albumin 4.2 g/dL (3.5-5.0); Calcium 9.2 mg/dL (8.4-10.2); Potassium 3.8 mmol/L (3.5-5.1); Total Bilirubin 0.3 mg/dL (0.2-1.3); Total Protein 6.6 g/dL (6.3-8.2)
--- NOTE | 2020-10-04 10:43 | P.PN ---
Subjective Progress Note Date: 10/04/20 Sean Lin is an 80-year-old male patient who presented to the ER with complaints of increasing shortness of breath over the past few months. Patient also reports swelling to lower extremities. Patient has a past medical history of A. fib, heart failure, COPD, GERD, GI bleed, hypertension, thyroid disorder. BNP elevated at 42,400. Mildly elevated troponin 0.071 and 0.098. Patient's creatinine 2.59 and bun 69 this does appear on patient's baseline. Patient also elevated d-dimer 1.46. VQ scan ordered due to chronic kidney disease. At that time cardiology services will be consulted. Patient started on IV Lasix. Upon examination feet found cold to touch bilaterally right greater than left with swelling and erythema tender to touch. Will start patient on Rocephin for cellulitis. Will consult vascular surgery due to concerns of arterial disease. Will order venous Doppler to rule out DVT. This time patient denies chest pain. Patient does complain of shortness of breath. Patient denies nausea vomiting or diarrhea. Patient denies any urinary burning or frequency. On 09/26/2020 patient was seen and examined on the telemetry floor he is alert and oriented 3 in no apparent distress he is complaining of pain in both feet he is also complaining of shortness of breath with any activity, otherwise he denies any complaint. There is no fever or chills no headache or dizziness no chest pain, no palpitation no cough no nausea or vomiting no abdominal pain no diarrhea no blood in the stools no burning with urination no frequency or urgency and no hematuria, there is no weakness or numbness in any of the extremities no change in vision speech or gait. D-dimer was elevated at 1.46, patient underwent VQ scan that was low probability for pulmonary embolism, bilateral lower extremity Doppler is still pending, patient also had elevated troponin levels at 0.071, 0.098, 0.092 cardiology are consulted, echocardiogram done patient remains on IV heparin at this time, PTT is therapeutic at 91.9, patient has known history of chronic kidney disease at this time BUN is 74 creatinine 2.33 he was seen in the past by Dr. Rojas, Will place a consult for nephrology for follow-up. On 09/27/2020 patient is alert and oriented 3 resting comfortably in bed. Patient does report improvement with overall shortness of breath. Patient remains on IV Lasix. He was started on eliquis per cardiology services for proximal atrial fibrillation. Arterial ultrasound of the lower extremity is ordered per vascular surgery. At this time patient denies any chest pain or shortness of breath. Patient denies nausea vomiting or diarrhea. Patient denies any urinary burning or frequency. Cardiology, nephrology, infectious disease and vascular surgery are following On 09/28/2020 Patient was seen and examined on the medical floor, he is alert and oriented x 3 in no distress, he denies any complaints there is no fever or chills no headache or dizziness no chest pain no shortness of breath no palpitation no cough no nausea or vomiting no abdominal pain no diarrhea no blood in the stools no burning with urination no frequency or urgency and no hematuria, there is no weakness or numbness in any of the extremities no change in vision speech or gait. Patient is still complaining of severe swelling and erythema and tenderness in his bilateral feet, otherwise he denies any complaints at this time. On 09/29/2020 patient was seen and examined on the medical floor he is alert and oriented 3 in no distress he is complaining of lower extremity pain and swelling otherwise he denies any complaints at this time there is no fever or chills no headache or dizziness no chest pain no shortness of breath no cough no nausea or vomiting no abdominal pain no diarrhea no blood in the stools no burning with urination no frequency or urgency and no hematuria On 09/30/2020 patient is alert and oriented 3 patient is complaining of lower extremity pain and swelling perfusing Chano wraps. Patient also educated on the importance of elevation while in bed. Creatinine 3.01 and bun 81. Patient was started on dobutamine per nephrology services Lasix increased. At this time patient denies chest pain or shortness of breath. Patient denies nausea vomiting or diarrhea. Patient denies any urinary burning or frequency On 10/01/2020 patient was seen and examined on the medical floor, he is alert and oriented 3 he is complaining of lower extremity pain and swelling perfusing Chano wraps. Patient also educated on the importance of elevation while in bed. Creatinine 3.01 and bun 81. Patient was started on dobutamine per nephrology services Lasix increased. At this time patient denies chest pain or shortness of breath. Patient denies nausea vomiting or diarrhea. Patient denies any urinary burning or frequency. He was evaluated by nephrology and was started on insulin drip, patient had arterial study on the lower extremities he will be reevaluated by vascular surgery. On 10/02/2020 patient is alert and oriented 3. Patient has been started on Lasix drip per nephrology remains on dobutamine drip. Weight down from 87.4 kg to 87 kg. Creatinine 3.26 and bun 91. At this time patient denies chest pain or shortness of breath. Patient denies nausea vomiting or diarrhea. Patient denies any urinary burning or frequency On 10/03/2020 patient is alert and oriented 3. He is still complaining of bilateral lower extremity edema and pain in the dorsal aspects of both feet due to severe edema , otherwise he denies any complaints at this time there is no fever or chills no headache or dizziness no chest pain he has mild shortness of breath with activity no shortness of breath at rest no nausea or vomiting no abdominal pain no diarrhea and no urinary symptoms Patient has been started on Lasix drip per nephrology remains on dobutamine drip. Weight down to 85.9 kg. Creatinine 3.26 and bun 91. At this time patient denies chest pain or shortness of breath. Patient denies nausea vomiting or diarrhea. Patient denies any urinary burning or frequency On 10/04/2020 patient is alert and oriented 3. Patient does report improvement with shortness of breath. Weight down from 85.9-82.6 kg. Patient remains on Lasix drip per nephrology. Patient still complaining of bilateral knee pain and patient was reevaluated by vascular surgery continue current medical management no plans for surgical intervention. Patient denies chest pain or shortness breath. Patient denies nausea vomiting or diarrhea. Patient denies any urinary burning or frequency Objective - Vital Signs Vital signs: Vital Signs Temp 97.4 F L 10/04/20 08:00 Pulse 65 10/04/20 08:00 Resp 16 10/04/20 08:00 BP 147/68 10/04/20 08:00 Pulse Ox 93 L 10/04/20 08:00 Intake & Output 10/03/20 10/04/20 10/04/20 18:59 06:59 18:59 Intake Total 820 166.25 580 Output Total 900 900 Balance -80 -733.75 580 Weight 82.6 kg Intake: Intake, IV Titration 100 166.25 100 Amount Furosemide 100 mg In 100 166.25 100 Sodium Chloride 0.9% 90 ml @ 10 MG/HR 10 mls/hr IV .Q10H [facility] Rx#: [id number] Oral 720 480 Output: Urine 900 900 - Exam In general patient is alert and oriented 3 in no distress Head normocephalic and atraumatic Neck supple no JVD no goiter Lungs diminished bilaterally no crackles no wheezing Heart regular rate and rhythm S1-S2, no rub or gallop Abdomen is soft nontender nondistended positive bowel sounds no hepatosplenomegaly Extremities +3 pedal edema noted to right side. Left +1. Bilateral spread is noted to feet. Neuro no gross focal neurological deficit - Labs CBC & Chem 7: 10/04/20 10:04 10/03/20 08:26 Labs: Abnormal Lab Results - Last 24 Hours (Table) 10/04/20 Range/Units 10:04 RBC 3.78 L (4.30-5.90) m/uL Hgb 11.3 L (13.0-17.5) gm/dL Hct 34.0 L (39.0-53.0) % RDW 15.9 H (11.5-15.5) % Lymphocytes # 0.6 L (1.0-4.8) k/uL Assessment and Plan Assessment: 1. Shortness breath secondary to acute on chronic systolic CHF exacerbation. BNP elevated at 43,000. Patient started on IV Lasix. Cardiomegaly with diffuse bilateral perihilar reticular opacities compatible with interstitial pulmonary disease. 2. Elevated d-dimer. D-dimer 1.46. Venous Doppler ordered to rule out DVT. VQ scan completed showing low probability of PE 3. Elevated troponins. Cardiology services following. 4. Cellulitis to lower extremities. She started on Rocephin. Infectious disease consulted IV antibiotics DC'd 5. Chronic kidney disease stage III. Creatinine 2.5 and bun 69 this does appear on patient's baseline. Nephrology services following. Dobutamine added. Lasix increased. Lasix drips added per nephrology 6. 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 History of COPD 8. Paroxysmal atrial fibrillation. Patient started on eliquis per cardiology services 9. Moderate bilateral fem-pop disease. Ultrasound of arteries completed of lower extremity. Patient was evaluated by vascular surgical services recommendations of floating compression stockings or Chano wrapped bilateral lower extremities. Patient currently refusing. No indications for vascular surgical intervention at this time 10. Hemorrhoids. hydrocortisone suppositories added DVT prophylaxis eliquis. GI prophylaxis Protonix Cardiology, nephrology, infectious disease and vascular surgery following Patient remains on Lasix and dobutamine drip.
--- NOTE | 2020-10-04 12:31 | P.PN ---
Subjective Progress Note Date: 10/04/20 Principal diagnosis: This is a 80-year-old male seen in consultation because of acute kidney injury from cardiorenal syndrome. He came in with shortness of breath, cellulitis of both legs, significant edema, COPD, known with atrial fibrillation cardiomyopathy with ejection fraction 30%. He has chronic kidney disease, Etiology nephrosclerosis. While signs are stable, urine output is 1800 mL for the last 24 hours, He denies any dizziness. And he says his breathing is much better he is on room air currently. Is able to walk without any dizziness. He had 2 loose stools yesterday and 1 this morning Objective - Vital Signs Vital signs: Vital Signs Temp 97.4 F L 10/04/20 08:00 Pulse 65 10/04/20 08:00 Resp 16 10/04/20 08:00 BP 147/68 10/04/20 08:00 Pulse Ox 93 L 10/04/20 08:00 Intake & Output 10/03/20 10/04/20 10/04/20 18:59 06:59 18:59 Intake Total 820 166.25 580 Output Total 900 900 525 Balance -80 -733.75 55 Weight 82.6 kg Intake: Intake, IV Titration 100 166.25 100 Amount Furosemide 100 mg In 100 166.25 100 Sodium Chloride 0.9% 90 ml @ 10 MG/HR 10 mls/hr IV .Q10H [facility] Rx#: [id number] Oral 720 480 Output: Urine 900 900 525 On examination awake alert oriented comfortable HEENT exam no JVP neck is supple no facial asymmetry Lungs are clear to auscultation good air entry bilaterally Heart sounds unremarkable for any murmur rub gallop Abdomen soft nontender no masses felt Extremity exam was moderate edema Neurologically awake alert oriented - Labs CBC & Chem 7: 10/04/20 10:04 10/04/20 10:04 Labs: Abnormal Lab Results - Last 24 Hours (Table) 10/04/20 10/04/20 Range/Units 10:04 10:04 RBC 3.78 L (4.30-5.90) m/uL Hgb 11.3 L (13.0-17.5) gm/dL Hct 34.0 L (39.0-53.0) % RDW 15.9 H (11.5-15.5) % Lymphocytes # 0.6 L (1.0-4.8) k/uL Chloride 93 L (98-107) mmol/L Carbon Dioxide 32 H (22-30) mmol/L BUN 109 H* (9-20) mg/dL Creatinine 3.60 H (0.66-1.25) mg/dL Glucose 105 H (74-99) mg/dL Assessment and Plan Plan: Impression 1. Acute kidney injury from cardiorenal syndrome, as well as an element from bilateral leg cellulitis, improving with aggressive diuresis. On IV Lasix drip, urine output is 1800 mL with a creatinine went up again now. He was 3.26, improved to 3 yesterday and then up to 3.6 this morning 2. 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 3. Anemia secondary to chronic kidney disease hemoglobin was 10.7 adequate. Rule out iron deficiency 4. Bilateral cellulitis of legs. 5. History of atrial fibrillation, COPD, cardiomyopathy. Recommendation 1. Discontinue the metolazone, today's Lasix to 10 mg per hour. 2. Monitor labs urine output blood pressures and watch for orthostatic changes.
[2020-10-04] MEDS: DARBEPOETIN ALFA 40 MCG/0.4 ML SYRINGE SQ SCH (12:38)
[2020-10-04] MEDS: HYDROCORTISONE SUPPOSITORY 25 MG SUPP RECTAL SCH ×2 (14:14→20:48)
[2020-10-04] MEDS: LEVOTHYROXINE 88 MCG TAB PO SCH (20:49)
[2020-10-04] MEDS: FERROUS SULFATE 325 MG TAB PO SCH (20:49)
[2020-10-04] MEDS: DOCUSATE 100 MG CAP PO SCH (20:55)
[2020-10-05] MEDS: HYDROmorphone 0.5 MG/0.5 ML SYRINGE IVP PRN ×2 (03:47→22:50)
--- NOTE | 2020-10-05 05:39 | PN ---
PROGRESS NOTE DATE OF SERVICE: 10/04/2020 REASON FOR FOLLOW UP: 1. Bilateral foot swelling, concern for cellulitis. 2. Athlete's foot. INTERVAL HISTORY: Patient is currently afebrile. The patient is breathing comfortably on room air. No chest pain, or any worsening pain in the left foot. PHYSICAL EXAMINATION: Blood pressure 120/60 with a pulse of 69, temperature 98. He is 97% on room air. General description is an elderly male lying in bed in no distress. RESPIRATORY SYSTEM: Unlabored breathing. Examination of the feet swelling persists. Redness has decreased. LABS: Hemoglobin 11.1, white count 9.5, BUN 109, creatinine 3.60. DIAGNOSTIC IMPRESSION AND PLAN: 1. Patient with bilateral feet swelling. Probably related to fluid overload. Clinically not behaving as cellulitis, off antibiotics. Will benefit from compression dressing which the patient has been using. 2. Athlete's foot, continue with Nystatin powder in between toes twice a day. MMODL / IJN: [id number] /
[2020-10-05] MEDS: carvediloL 6.25 MG TAB PO SCH ×2 (06:59→16:43)
[2020-10-05] MEDS: PANTOPRAZOLE 40 MG TABLET PO SCH (06:59)
[2020-10-05 07:56] LABS: Anisocytosis Slight; Basophils % (A) 0 %; Eosinophils # (A) 0.3 k/uL (0-0.7); Eosinophils % (A) 4 %; HCT 35.1 % (39.0-53.0); Lymphocytes # (A) 0.6 k/uL (1.0-4.8); Lymphocytes % (A) 7 %; MCH 28.1 pg (25.0-35.0); MCHC 31.3 g/dL (31.0-37.0); MCV 89.6 fL (80.0-100.0); Mean Platelet Volume 7.9; Monocytes # (A) 0.8 k/uL (0-1.0); Monocytes % (A) 9 %; Neutrophils # (A) 6.9 k/uL (1.3-7.7); Neutrophils % (A) 78 %; Platelet Count 304 k/uL (150-450); RBC 3.91 m/uL (4.30-5.90); RDW 16.1 % (11.5-15.5); WBC 8.8 k/uL (3.8-10.6)
[2020-10-05 08:10] LABS: Albumin 4.1 g/dL (3.5-5.0); Calcium 9.3 mg/dL (8.4-10.2); Total Bilirubin 0.3 mg/dL (0.2-1.3); Total Protein 6.5 g/dL (6.3-8.2)
[2020-10-05] MEDS: ALBUTEROL HFA INHALER INHALATION PRN ×2 (08:39→11:45)
[2020-10-05] MEDS: allopurinoL 100 MG TAB PO SCH (08:59)
[2020-10-05] MEDS: hydrALAZINE HCL 25 MG TAB PO SCH ×3 (08:59→19:52)
[2020-10-05] MEDS: NYSTATIN 100,000 UNIT/GM POWD 15 GM TOPICAL SCH ×2 (08:59→19:44)
[2020-10-05] MEDS: APIXABAN 2.5 MG TABLET PO SCH ×2 (08:59→19:52)
[2020-10-05] MEDS: HYDROCORTISONE SUPPOSITORY 25 MG SUPP RECTAL SCH ×2 (09:17→19:52)
--- NOTE | 2020-10-05 12:03 | P.PN ---
Subjective Patient is seen in follow-up for acute kidney injury on chronic kidney disease. Maintained on Lasix drip. Edema improving. Renal function stable. No vomiting. Hemodynamically stable. Vital signs are stable. General: The patient appeared well nourished and normally developed. HEENT: Head exam is unremarkable. Neck is without jugular venous distension. LUNGS: Breath sounds decreased. HEART: Rate and Rhythm are regular. ABDOMEN: Soft, no distention. EXTREMITITES: 2+ edema. Objective - Vital Signs Vital signs: Vital Signs Temp 97.7 F 10/05/20 08:00 Pulse 60 10/05/20 08:00 Resp 18 10/05/20 08:00 BP 138/63 10/05/20 08:00 Pulse Ox 95 10/05/20 08:00 Intake & Output 10/04/20 10/05/20 10/05/20 18:59 06:59 18:59 Intake Total 1160 Output Total 1600 1050 125 Balance -440 -1050 -125 Weight 81.193 kg Intake: Intake, IV Titration 200 Amount Furosemide 100 mg In 200 Sodium Chloride 0.9% 90 ml @ 10 MG/HR 10 mls/hr IV .Q10H [facility] Rx#: [id number] Oral 960 Output: Urine 1600 1050 125 Other: # Voids 1 # Bowel Movements 1 - Labs CBC & Chem 7: 10/05/20 07:20 10/05/20 07:20 Labs: Abnormal Lab Results - Last 24 Hours (Table) 10/05/20 10/05/20 Range/Units 07:20 07:20 RBC 3.91 L (4.30-5.90) m/uL Hgb 11.0 L (13.0-17.5) gm/dL Hct 35.1 L (39.0-53.0) % RDW 16.1 H (11.5-15.5) % Lymphocytes # 0.6 L (1.0-4.8) k/uL Sodium 135 L (137-145) mmol/L Chloride 90 L (98-107) mmol/L Carbon Dioxide 34 H (22-30) mmol/L BUN 112 H* (9-20) mg/dL Creatinine 3.59 H (0.66-1.25) mg/dL Glucose 110 H (74-99) mg/dL Assessment and Plan Plan: Assessment: 1. Acute kidney injury secondary to ATN secondary to cardiorenal syndrome. Creatinine stable at 3.59 today. 2. Acute on chronic systolic CHF with ejection fraction of 30-35% with moderate to severe aortic regurgitation, mitral regurgitation, mitral stenosis, tricuspid regurgitation. 3. Severe pulmonary hypertension. 4. Volume overload. 5. Chronic kidney disease stage IV with baseline creatinine near 2.5 secondary to nephrosclerosis. 6. Anemia of chronic kidney disease maintained on Aranesp. 7. Hypertension with chronic kidney disease. Stable. Plan: Maintain Lasix drip for now. Repeat chest x-ray in the morning. Avoid nephrotoxins. Continue to monitor renal function and urine output. Check renal ultrasound.
--- NOTE | 2020-10-05 16:32 | US ---
EXAMINATION TYPE: US kidneys/renal and bladder DATE OF EXAM: 10/05/2020 COMPARISON: US 09/10/2019 CLINICAL HISTORY: tressa. EXAM MEASUREMENTS: Right Kidney: 9.4 x 5.0 x 5.2 cm Left Kidney: 10.4 x 5.6 x 4.8 cm Right Kidney: Loss of corticomedullary differentiation and cortical thinning. Echogenic foci at the mid pole visualized measuring 0.9 cm. This is most suggestive of a nonobstructing renal calculus. Left Kidney: Loss of corticomedullary differentiation and cortical thinning. Cyst measuring at the la teral midpole 1.8 x 1.5 x 1.3 cm Bladder: Not distended No hydronephrosis. No left renal calculi are seen. Bilateral cortical thinning and loss of cortical m edullary differentiation suggestive medical renal disease. IMPRESSION: 1. Right interpolar renal calculus measuring 9 mm is nonobstructing. No hydronephrosis. 2. Bilateral loss of cortical medullary differentiation suggestive of medical renal disease. There is likely bilateral cortical thinning. 3. Left renal cyst measuring 1.8 cm at the lateral midpole.
[2020-10-05] MEDS: FUROSEMIDE 100 MG in SODIUM CHLORIDE 0.9% 90 ML IV SCH (16:42)
[2020-10-05] MEDS: DOCUSATE 100 MG CAP PO SCH (19:44)
--- NOTE | 2020-10-05 19:46 | P.PN ---
Subjective Progress Note Date: 10/05/20 Sean Lin is an 80-year-old male patient who presented to the ER with complaints of increasing shortness of breath over the past few months. Patient also reports swelling to lower extremities. Patient has a past medical history of A. fib, heart failure, COPD, GERD, GI bleed, hypertension, thyroid disorder. BNP elevated at 42,400. Mildly elevated troponin 0.071 and 0.098. Patient's creatinine 2.59 and bun 69 this does appear on patient's baseline. Patient also elevated d-dimer 1.46. VQ scan ordered due to chronic kidney disease. At that time cardiology services will be consulted. Patient started on IV Lasix. Upon examination feet found cold to touch bilaterally right greater than left with swelling and erythema tender to touch. Will start patient on Rocephin for cellulitis. Will consult vascular surgery due to concerns of arterial disease. Will order venous Doppler to rule out DVT. This time patient denies chest pain. Patient does complain of shortness of breath. Patient denies nausea vomiting or diarrhea. Patient denies any urinary burning or frequency. On 09/26/2020 patient was seen and examined on the telemetry floor he is alert and oriented 3 in no apparent distress he is complaining of pain in both feet he is also complaining of shortness of breath with any activity, otherwise he denies any complaint. There is no fever or chills no headache or dizziness no chest pain, no palpitation no cough no nausea or vomiting no abdominal pain no diarrhea no blood in the stools no burning with urination no frequency or urgency and no hematuria, there is no weakness or numbness in any of the extremities no change in vision speech or gait. D-dimer was elevated at 1.46, patient underwent VQ scan that was low probability for pulmonary embolism, bilateral lower extremity Doppler is still pending, patient also had elevated troponin levels at 0.071, 0.098, 0.092 cardiology are consulted, echocardiogram done patient remains on IV heparin at this time, PTT is therapeutic at 91.9, patient has known history of chronic kidney disease at this time BUN is 74 creatinine 2.33 he was seen in the past by Dr. Rojas, Will place a consult for nephrology for follow-up. On 09/27/2020 patient is alert and oriented 3 resting comfortably in bed. Patient does report improvement with overall shortness of breath. Patient remains on IV Lasix. He was started on eliquis per cardiology services for proximal atrial fibrillation. Arterial ultrasound of the lower extremity is ordered per vascular surgery. At this time patient denies any chest pain or shortness of breath. Patient denies nausea vomiting or diarrhea. Patient denies any urinary burning or frequency. Cardiology, nephrology, infectious disease and vascular surgery are following On 09/28/2020 Patient was seen and examined on the medical floor, he is alert and oriented x 3 in no distress, he denies any complaints there is no fever or chills no headache or dizziness no chest pain no shortness of breath no palpitation no cough no nausea or vomiting no abdominal pain no diarrhea no blood in the stools no burning with urination no frequency or urgency and no hematuria, there is no weakness or numbness in any of the extremities no change in vision speech or gait. Patient is still complaining of severe swelling and erythema and tenderness in his bilateral feet, otherwise he denies any complaints at this time. On 09/29/2020 patient was seen and examined on the medical floor he is alert and oriented 3 in no distress he is complaining of lower extremity pain and swelling otherwise he denies any complaints at this time there is no fever or chills no headache or dizziness no chest pain no shortness of breath no cough no nausea or vomiting no abdominal pain no diarrhea no blood in the stools no burning with urination no frequency or urgency and no hematuria On 09/30/2020 patient is alert and oriented 3 patient is complaining of lower extremity pain and swelling perfusing Chano wraps. Patient also educated on the importance of elevation while in bed. Creatinine 3.01 and bun 81. Patient was started on dobutamine per nephrology services Lasix increased. At this time patient denies chest pain or shortness of breath. Patient denies nausea vomiting or diarrhea. Patient denies any urinary burning or frequency On 10/01/2020 patient was seen and examined on the medical floor, he is alert and oriented 3 he is complaining of lower extremity pain and swelling perfusing Chano wraps. Patient also educated on the importance of elevation while in bed. Creatinine 3.01 and bun 81. Patient was started on dobutamine per nephrology services Lasix increased. At this time patient denies chest pain or shortness of breath. Patient denies nausea vomiting or diarrhea. Patient denies any urinary burning or frequency. He was evaluated by nephrology and was started on insulin drip, patient had arterial study on the lower extremities he will be reevaluated by vascular surgery. On 10/02/2020 patient is alert and oriented 3. Patient has been started on Lasix drip per nephrology remains on dobutamine drip. Weight down from 87.4 kg to 87 kg. Creatinine 3.26 and bun 91. At this time patient denies chest pain or shortness of breath. Patient denies nausea vomiting or diarrhea. Patient denies any urinary burning or frequency On 10/03/2020 patient is alert and oriented 3. He is still complaining of bilateral lower extremity edema and pain in the dorsal aspects of both feet due to severe edema , otherwise he denies any complaints at this time there is no fever or chills no headache or dizziness no chest pain he has mild shortness of breath with activity no shortness of breath at rest no nausea or vomiting no abdominal pain no diarrhea and no urinary symptoms Patient has been started on Lasix drip per nephrology remains on dobutamine drip. Weight down to 85.9 kg. Creatinine 3.26 and bun 91. At this time patient denies chest pain or shortness of breath. Patient denies nausea vomiting or diarrhea. Patient denies any urinary burning or frequency On 10/04/2020 patient is alert and oriented 3. Patient does report improvement with shortness of breath. Weight down from 85.9-82.6 kg. Patient remains on Lasix drip per nephrology. Patient still complaining of bilateral knee pain and patient was reevaluated by vascular surgery continue current medical management no plans for surgical intervention. Patient denies chest pain or shortness breath. Patient denies nausea vomiting or diarrhea. Patient denies any urinary burning or frequency On 10/05/2020 patient was seen and examined on the medical floor he is alert and oriented 3 in no apparent distress, he reports improvement in his shortness of breath and his lower extremity edema, kidney function slightly worse, patient denies any fever or chills no headache or dizziness no chest pain no cough no nausea or vomiting no abdominal pain no diarrhea no burning with urination no frequency or urgency and no hematuria. Objective - Vital Signs Vital signs: Vital Signs Temp 97.7 F 10/05/20 08:00 Pulse 72 10/05/20 16:00 Resp 18 05/24/21 16:00 BP 174/74 10/05/20 16:00 Pulse Ox 95 10/05/20 16:00 Intake & Output 10/05/20 10/05/20 10/06/20 06:59 18:59 06:59 Intake Total 100 480 Output Total 1050 1025 Balance -950 -545 Weight 81.193 kg Intake: Intake, IV Titration 100 Amount Furosemide 100 mg In 100 Sodium Chloride 0.9% 90 ml @ 10 MG/HR 10 mls/hr IV .Q10H [facility] Rx#: [id number] Oral 480 Output: Urine 1050 1025 Other: # Voids 1 # Bowel Movements 1 - Exam In general patient is alert and oriented 3 in no distress Head normocephalic and atraumatic Neck supple no JVD no goiter Lungs diminished bilaterally no crackles no wheezing Heart regular rate and rhythm S1-S2, no rub or gallop Abdomen is soft nontender nondistended positive bowel sounds no hepatosplenomegaly Extremities +3 pedal edema noted to right side. Left +1. Bilateral spread is noted to feet. Neuro no gross focal neurological deficit - Labs CBC & Chem 7: 10/05/20 07:20 10/05/20 07:20 Labs: Abnormal Lab Results - Last 24 Hours (Table) 10/05/20 10/05/20 Range/Units 07:20 07:20 RBC 3.91 L (4.30-5.90) m/uL Hgb 11.0 L (13.0-17.5) gm/dL Hct 35.1 L (39.0-53.0) % RDW 16.1 H (11.5-15.5) % Lymphocytes # 0.6 L (1.0-4.8) k/uL Sodium 135 L (137-145) mmol/L Chloride 90 L (98-107) mmol/L Carbon Dioxide 34 H (22-30) mmol/L BUN 112 H* (9-20) mg/dL Creatinine 3.59 H (0.66-1.25) mg/dL Glucose 110 H (74-99) mg/dL Assessment and Plan Assessment: 1. Shortness breath secondary to acute on chronic systolic CHF exacerbation. BNP elevated at 43,000. Patient started on IV Lasix. Cardiomegaly with diffuse bilateral perihilar reticular opacities compatible with interstitial pulmonary disease. 2. Elevated d-dimer. D-dimer 1.46. Venous Doppler ordered to rule out DVT. VQ scan completed showing low probability of PE 3. Elevated troponins. Cardiology services following. 4. Cellulitis to lower extremities. She started on Rocephin. Infectious disease consulted IV antibiotics DC'd 5. Chronic kidney disease stage III. Creatinine 2.5 and bun 69 this does appear on patient's baseline. Nephrology services following. Dobutamine added. Lasix increased. Lasix drips added per nephrology 6. 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 History of COPD 8. Paroxysmal atrial fibrillation. Patient started on eliquis per cardiology services 9. Moderate bilateral fem-pop disease. Ultrasound of arteries completed of lower extremity. Patient was evaluated by vascular surgical services recommendations of floating compression stockings or Chano wrapped bilateral lower extremities. Patient currently refusing. No indications for vascular surgical intervention at this time 10. Hemorrhoids. hydrocortisone suppositories added DVT prophylaxis eliquis. GI prophylaxis Protonix Cardiology, nephrology, infectious disease and vascular surgery following Patient remains on Lasix and dobutamine drip.
[2020-10-05] MEDS: LEVOTHYROXINE 88 MCG TAB PO SCH (19:52)
[2020-10-05] MEDS: FERROUS SULFATE 325 MG TAB PO SCH (19:52)
[2020-10-05] MEDS: CEPHALEXIN 500 MG CAP PO SCH (22:50)
--- NOTE | 2020-10-06 04:00 | PN ---
PROGRESS NOTE DATE OF SERVICE: 10/05/2020 REASON FOR FOLLOWUP: Bilateral foot cellulitis and athlete's foot. INTERVAL HISTORY: Patient is currently afebrile. The patient is breathing comfortably. Complaining of bilateral foot pain mostly on the right foot area. Still has swelling, minimal redness. Denies having any chest pain. No shortness of breath, cough, abdominal pain or diarrhea. PHYSICAL EXAMINATION: Blood pressure 117/70 with a pulse of 58, temperature 98.2. He is 100% on room air. General description: The patient is an elderly male up in the bed in no distress. Respiratory system: Unlabored breathing with decreased intensity in breath sounds. No wheeze. Heart S1, S2. Regular rate and rhythm. ABDOMEN: Soft. Bilateral feet currently swollen and slightly warm to touch. No edema. LABS: Hemoglobin 11.8, white count 8.8. BUN of 112, creatinine 3.59. DIAGNOSTIC IMPRESSION AND PLAN: Patient with bilateral foot cellulitis and the patient did have significant fluid overload. The patient will be started on oral Keflex and to continue with nystatin powder between the toes. Continue supportive care. MMODL / IJN: [id number] /
[2020-10-06] MEDS: carvediloL 6.25 MG TAB PO SCH ×2 (06:32→17:51)
[2020-10-06] MEDS: PANTOPRAZOLE 40 MG TABLET PO SCH (06:32)
[2020-10-06] MEDS: ALBUTEROL HFA INHALER INHALATION PRN ×2 (08:02→12:06)
[2020-10-06 08:16] LABS: Calcium 9.3 mg/dL (8.4-10.2); Magnesium 2.7 mg/dL (1.6-2.3); Potassium 3.9 mmol/L (3.5-5.1)
[2020-10-06] MEDS: HYDROCORTISONE SUPPOSITORY 25 MG SUPP RECTAL SCH ×3 (09:33→21:00)
--- NOTE | 2020-10-06 09:36 | XR ---
EXAMINATION TYPE: XR chest 1V DATE OF EXAM: 10/06/2020 COMPARISON: Chest x-ray 09/28/2020 HISTORY: Shortness of breath TECHNIQUE: Single frontal view of the chest is obtained. FINDINGS: Heart is enlarged. Patient is rotated. Generator is present in left pectoral region, there are leads in right atrium and ventricle as on prior. No evident pneumothorax or pleural effusion. Th ere are overlying leads. Lungs are clear. IMPRESSION: Interval improvement in aeration. Cardiomegaly. Postprocedural changes.
[2020-10-06] MEDS: hydrALAZINE HCL 25 MG TAB PO SCH ×3 (10:22→20:58)
[2020-10-06] MEDS: allopurinoL 100 MG TAB PO SCH (10:22)
[2020-10-06] MEDS: APIXABAN 2.5 MG TABLET PO SCH ×2 (10:22→20:58)
[2020-10-06] MEDS: CEPHALEXIN 500 MG CAP PO SCH (10:23)
[2020-10-06] MEDS: NYSTATIN 100,000 UNIT/GM POWD 15 GM TOPICAL SCH ×2 (10:23→21:00)
--- NOTE | 2020-10-06 11:53 | P.PN ---
Subjective Patient is seen in follow-up for acute kidney injury on chronic kidney disease. Maintained on Lasix drip. Edema improving. No vomiting. Hemodynamically stable. Vital signs are stable. General: The patient appeared well nourished and normally developed. HEENT: Head exam is unremarkable. Neck is without jugular venous distension. LUNGS: Breath sounds decreased. HEART: Rate and Rhythm are regular. ABDOMEN: Soft, no distention. EXTREMITITES: 2+ edema. Objective - Vital Signs Vital signs: Vital Signs Temp 98.4 F 10/06/20 08:00 Pulse 59 L 10/06/20 08:00 Resp 18 10/06/20 08:00 BP 134/65 10/06/20 08:00 Pulse Ox 97 10/06/20 08:00 Intake & Output 10/05/20 10/06/20 10/06/20 18:59 06:59 18:59 Intake Total 480 560 Output Total 1025 1250 200 Balance -545 -1250 360 Weight 80.3 kg Intake: Oral 480 560 Output: Urine 1025 1250 200 Other: Voiding Method Urinal # Voids 1 2 # Bowel Movements 1 - Labs CBC & Chem 7: 10/05/20 07:20 10/06/20 07:15 Labs: Abnormal Lab Results - Last 24 Hours (Table) 10/06/20 Range/Units 07:15 Sodium 136 L (137-145) mmol/L Chloride 89 L (98-107) mmol/L Carbon Dioxide 35 H (22-30) mmol/L BUN 123 H* (9-20) mg/dL Creatinine 3.54 H (0.66-1.25) mg/dL Glucose 106 H (74-99) mg/dL Magnesium 2.7 H (1.6-2.3) mg/dL Assessment and Plan Plan: Assessment: 1. Acute kidney injury secondary to ATN secondary to cardiorenal syndrome. Creatinine stable at 3.54 today. No hydronephrosis noted on kidney ultrasound. 2. Acute on chronic systolic CHF with ejection fraction of 30-35% with moderate to severe aortic regurgitation, mitral regurgitation, mitral stenosis, tricuspid regurgitation. 3. Severe pulmonary hypertension. 4. Volume overload. Improving with diuresis. 5. Chronic kidney disease stage IV with baseline creatinine near 2.5 secondary to nephrosclerosis. 6. Anemia of chronic kidney disease maintained on Aranesp. 7. Hypertension with chronic kidney disease. Stable. Plan: Stop Lasix drip. Start IV push Lasix 60 mg twice daily. Avoid nephrotoxins. Continue to monitor renal function and urine output.
[2020-10-06] MEDS: FUROSEMIDE 10 MG/ML 10 ML VIAL IV SCH ×2 (12:08→20:57)
--- NOTE | 2020-10-06 12:25 | PN ---
PROGRESS NOTE DATE OF SERVICE: 10/06/2020. REASON FOR FOLLOWUP: 1. Bilateral foot cellulitis. 2. Athlete's foot. INTERVAL HISTORY: The patient is afebrile. He is breathing comfortably. Patient denies having any chest pain, shortness of breath or cough. No abdominal pain. Complaining of pain to bilateral foot, no worsening though. PHYSICAL EXAMINATION: Blood pressure 134/65, pulse 59, temperature 98.4. He is 97% on room air. General description is an elderly male lying in bed in no distress. RESPIRATORY SYSTEM: Unlabored breathing, clear to auscultation anteriorly. HEART: S1, S2. Regular rate and rhythm. ABDOMEN: Soft, no tenderness. Bilateral feet swelling, minimall warm and no drainage. LABS: BUN 123, creatinine 3.54. DIAGNOSTIC IMPRESSION AND PLAN: Patient with bilateral lower extremity swelling with some evidence of renal failure which is worsening. Continue with oral Keflex and nystatin powder in between the toes and monitor clinical course closely. MMODL / IJN: [id number] /
[2020-10-06] MEDS: CEPHALEXIN 250 MG CAP PO SCH ×2 (17:51→20:59)
--- NOTE | 2020-10-06 20:24 | P.PN ---
Subjective Progress Note Date: 10/06/20 Sean Lin is an 80-year-old male patient who presented to the ER with complaints of increasing shortness of breath over the past few months. Patient also reports swelling to lower extremities. Patient has a past medical history of A. fib, heart failure, COPD, GERD, GI bleed, hypertension, thyroid disorder. BNP elevated at 42,400. Mildly elevated troponin 0.071 and 0.098. Patient's creatinine 2.59 and bun 69 this does appear on patient's baseline. Patient also elevated d-dimer 1.46. VQ scan ordered due to chronic kidney disease. At that time cardiology services will be consulted. Patient started on IV Lasix. Upon examination feet found cold to touch bilaterally right greater than left with swelling and erythema tender to touch. Will start patient on Rocephin for cellulitis. Will consult vascular surgery due to concerns of arterial disease. Will order venous Doppler to rule out DVT. This time patient denies chest pain. Patient does complain of shortness of breath. Patient denies nausea vomiting or diarrhea. Patient denies any urinary burning or frequency. On 09/26/2020 patient was seen and examined on the telemetry floor he is alert and oriented 3 in no apparent distress he is complaining of pain in both feet he is also complaining of shortness of breath with any activity, otherwise he denies any complaint. There is no fever or chills no headache or dizziness no chest pain, no palpitation no cough no nausea or vomiting no abdominal pain no diarrhea no blood in the stools no burning with urination no frequency or urgency and no hematuria, there is no weakness or numbness in any of the extremities no change in vision speech or gait. D-dimer was elevated at 1.46, patient underwent VQ scan that was low probability for pulmonary embolism, bilateral lower extremity Doppler is still pending, patient also had elevated troponin levels at 0.071, 0.098, 0.092 cardiology are consulted, echocardiogram done patient remains on IV heparin at this time, PTT is therapeutic at 91.9, patient has known history of chronic kidney disease at this time BUN is 74 creatinine 2.33 he was seen in the past by Dr. Rojas, Will place a consult for nephrology for follow-up. On 09/27/2020 patient is alert and oriented 3 resting comfortably in bed. Patient does report improvement with overall shortness of breath. Patient remains on IV Lasix. He was started on eliquis per cardiology services for proximal atrial fibrillation. Arterial ultrasound of the lower extremity is ordered per vascular surgery. At this time patient denies any chest pain or shortness of breath. Patient denies nausea vomiting or diarrhea. Patient denies any urinary burning or frequency. Cardiology, nephrology, infectious disease and vascular surgery are following On 09/28/2020 Patient was seen and examined on the medical floor, he is alert and oriented x 3 in no distress, he denies any complaints there is no fever or chills no headache or dizziness no chest pain no shortness of breath no palpitation no cough no nausea or vomiting no abdominal pain no diarrhea no blood in the stools no burning with urination no frequency or urgency and no hematuria, there is no weakness or numbness in any of the extremities no change in vision speech or gait. Patient is still complaining of severe swelling and erythema and tenderness in his bilateral feet, otherwise he denies any complaints at this time. On 09/29/2020 patient was seen and examined on the medical floor he is alert and oriented 3 in no distress he is complaining of lower extremity pain and swelling otherwise he denies any complaints at this time there is no fever or chills no headache or dizziness no chest pain no shortness of breath no cough no nausea or vomiting no abdominal pain no diarrhea no blood in the stools no burning with urination no frequency or urgency and no hematuria On 09/30/2020 patient is alert and oriented 3 patient is complaining of lower extremity pain and swelling perfusing Chano wraps. Patient also educated on the importance of elevation while in bed. Creatinine 3.01 and bun 81. Patient was started on dobutamine per nephrology services Lasix increased. At this time patient denies chest pain or shortness of breath. Patient denies nausea vomiting or diarrhea. Patient denies any urinary burning or frequency On 10/01/2020 patient was seen and examined on the medical floor, he is alert and oriented 3 he is complaining of lower extremity pain and swelling perfusing Chano wraps. Patient also educated on the importance of elevation while in bed. Creatinine 3.01 and bun 81. Patient was started on dobutamine per nephrology services Lasix increased. At this time patient denies chest pain or shortness of breath. Patient denies nausea vomiting or diarrhea. Patient denies any urinary burning or frequency. He was evaluated by nephrology and was started on insulin drip, patient had arterial study on the lower extremities he will be reevaluated by vascular surgery. On 10/02/2020 patient is alert and oriented 3. Patient has been started on Lasix drip per nephrology remains on dobutamine drip. Weight down from 87.4 kg to 87 kg. Creatinine 3.26 and bun 91. At this time patient denies chest pain or shortness of breath. Patient denies nausea vomiting or diarrhea. Patient denies any urinary burning or frequency On 10/03/2020 patient is alert and oriented 3. He is still complaining of bilateral lower extremity edema and pain in the dorsal aspects of both feet due to severe edema , otherwise he denies any complaints at this time there is no fever or chills no headache or dizziness no chest pain he has mild shortness of breath with activity no shortness of breath at rest no nausea or vomiting no abdominal pain no diarrhea and no urinary symptoms Patient has been started on Lasix drip per nephrology remains on dobutamine drip. Weight down to 85.9 kg. Creatinine 3.26 and bun 91. At this time patient denies chest pain or shortness of breath. Patient denies nausea vomiting or diarrhea. Patient denies any urinary burning or frequency On 10/04/2020 patient is alert and oriented 3. Patient does report improvement with shortness of breath. Weight down from 85.9-82.6 kg. Patient remains on Lasix drip per nephrology. Patient still complaining of bilateral knee pain and patient was reevaluated by vascular surgery continue current medical management no plans for surgical intervention. Patient denies chest pain or shortness breath. Patient denies nausea vomiting or diarrhea. Patient denies any urinary burning or frequency On 10/05/2020 patient was seen and examined on the medical floor he is alert and oriented 3 in no apparent distress, he reports improvement in his shortness of breath and his lower extremity edema, kidney function slightly worse, patient denies any fever or chills no headache or dizziness no chest pain no cough no nausea or vomiting no abdominal pain no diarrhea no burning with urination no frequency or urgency and no hematuria. On 10/06/2020 patient was seen and examined on the medical floor he is alert and oriented 3 in no apparent distress, he is feeling more tired and weak today, kidney function again worse today. patient denies any fever or chills no headache or dizziness no chest pain no cough no nausea or vomiting no abdominal pain no diarrhea no burning with urination no frequency or urgency and no hematuria. Nephrology following at this time Lasix drip was discontinued and patient was started on IV Lasix twice a day Will monitor closely Objective - Vital Signs Vital signs: Vital Signs Temp 98.4 F 10/06/20 08:00 Pulse 59 L 10/06/20 08:00 Resp 18 10/06/20 08:00 BP 134/65 10/06/20 08:00 Pulse Ox 97 10/06/20 08:00 Intake & Output 10/05/20 10/06/20 10/06/20 18:59 06:59 18:59 Intake Total 480 560 Output Total 1025 1250 200 Balance -545 -1250 360 Weight 80.3 kg Intake: Oral 480 560 Output: Urine 1025 1250 200 Other: Voiding Method Urinal # Voids 1 2 # Bowel Movements 1 - Exam In general patient is alert and oriented 3 in no distress Head normocephalic and atraumatic Neck supple no JVD no goiter Lungs diminished bilaterally no crackles no wheezing Heart regular rate and rhythm S1-S2, no rub or gallop Abdomen is soft nontender nondistended positive bowel sounds no hepatosplenomegaly Extremities +3 pedal edema noted to right side. Left +1. Bilateral spread is noted to feet. Neuro no gross focal neurological deficit - Labs CBC & Chem 7: 10/05/20 07:20 10/06/20 07:15 Labs: Abnormal Lab Results - Last 24 Hours (Table) 10/06/20 Range/Units 07:15 Sodium 136 L (137-145) mmol/L Chloride 89 L (98-107) mmol/L Carbon Dioxide 35 H (22-30) mmol/L BUN 123 H* (9-20) mg/dL Creatinine 3.54 H (0.66-1.25) mg/dL Glucose 106 H (74-99) mg/dL Magnesium 2.7 H (1.6-2.3) mg/dL Assessment and Plan Assessment: 1. Shortness breath secondary to acute on chronic systolic CHF exacerbation. BNP elevated at 43,000. Patient started on IV Lasix. Cardiomegaly with diffuse bilateral perihilar reticular opacities compatible with interstitial pulmonary disease. 2. Elevated d-dimer. D-dimer 1.46. Venous Doppler ordered to rule out DVT. VQ scan completed showing low probability of PE 3. Elevated troponins. Cardiology services following. 4. Cellulitis to lower extremities. She started on Rocephin. Infectious disease consulted IV antibiotics DC'd 5. Chronic kidney disease stage III. Creatinine 2.5 and bun 69 this does appear on patient's baseline. Nephrology services following. Dobutamine added. Lasix increased. Lasix drips added per nephrology 6. 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 History of COPD 8. Paroxysmal atrial fibrillation. Patient started on eliquis per cardiology services 9. Moderate bilateral fem-pop disease. Ultrasound of arteries completed of lower extremity. Patient was evaluated by vascular surgical services recommendations of floating compression stockings or Chano wrapped bilateral lower extremities. Patient currently refusing. No indications for vascular surgical intervention at this time 10. Hemorrhoids. hydrocortisone suppositories added DVT prophylaxis eliquis. GI prophylaxis Protonix Cardiology, nephrology, infectious disease and vascular surgery following Patient remains on Lasix and dobutamine drip.
[2020-10-06] MEDS: FERROUS SULFATE 325 MG TAB PO SCH (20:58)
[2020-10-06] MEDS: DOCUSATE 100 MG CAP PO SCH (20:58)
[2020-10-06] MEDS: LEVOTHYROXINE 88 MCG TAB PO SCH (20:58)
[2020-10-07] MEDS: HYDROmorphone 0.5 MG/0.5 ML SYRINGE IVP PRN ×2 (00:49→08:14)
[2020-10-07] MEDS: ALBUTEROL HFA INHALER INHALATION PRN ×2 (05:43→08:31)
[2020-10-07] MEDS: carvediloL 6.25 MG TAB PO SCH ×2 (06:36→17:58)
[2020-10-07] MEDS: PANTOPRAZOLE 40 MG TABLET PO SCH (06:36)
[2020-10-07 07:36] LABS: Calcium 9.2 mg/dL (8.4-10.2); Magnesium 2.8 mg/dL (1.6-2.3); Potassium 3.9 mmol/L (3.5-5.1)
[2020-10-07] MEDS: HYDROCORTISONE SUPPOSITORY 25 MG SUPP RECTAL SCH ×2 (08:01→21:14)
[2020-10-07] MEDS: APIXABAN 2.5 MG TABLET PO SCH ×2 (08:01→21:00)
[2020-10-07] MEDS: CEPHALEXIN 250 MG CAP PO SCH ×3 (08:01→21:14)
[2020-10-07] MEDS: FUROSEMIDE 10 MG/ML 10 ML VIAL IV SCH (08:01)
[2020-10-07] MEDS: allopurinoL 100 MG TAB PO SCH (08:01)
[2020-10-07] MEDS: hydrALAZINE HCL 25 MG TAB PO SCH ×3 (08:01→21:00)
[2020-10-07] MEDS: NYSTATIN 100,000 UNIT/GM POWD 15 GM TOPICAL SCH ×2 (08:02→21:14)
[2020-10-07] MEDS ORDERED: ONDANSETRON 4 MG/2 ML VIAL IVP STA (09:28)
--- NOTE | 2020-10-07 11:20 | P.PN ---
Subjective Patient is seen in follow-up for acute kidney injury on chronic kidney disease. Maintained on IV Lasix. Edema improving. Feels nauseous this morning. No vomiting. Hemodynamically stable. Vital signs are stable. General: The patient appeared well nourished and normally developed. HEENT: Head exam is unremarkable. Neck is without jugular venous distension. LUNGS: Breath sounds decreased. HEART: Rate and Rhythm are regular. ABDOMEN: Soft, no distention. EXTREMITITES: 1+ edema. Objective - Vital Signs Vital signs: Vital Signs Temp 98 F 10/07/20 11:11 Pulse 60 10/07/20 11:11 Resp 18 10/07/20 11:11 BP 144/61 10/07/20 11:11 Pulse Ox 97 10/07/20 11:11 Intake & Output 10/06/20 10/07/20 10/07/20 18:59 06:59 18:59 Intake Total 1360 420 Output Total 200 1160 180 Balance 1160 -1160 240 Weight 78.3 kg Intake: Oral 1360 420 Output: Urine 200 1160 180 Other: Voiding Method Urinal # Voids 2 2 2 - Labs CBC & Chem 7: 10/05/20 07:20 10/07/20 06:41 Labs: Abnormal Lab Results - Last 24 Hours (Table) 10/07/20 Range/Units 06:41 Sodium 134 L (137-145) mmol/L Chloride 87 L (98-107) mmol/L Carbon Dioxide 33 H (22-30) mmol/L BUN 134 H* (9-20) mg/dL Creatinine 3.96 H (0.66-1.25) mg/dL Glucose 106 H (74-99) mg/dL Magnesium 2.8 H (1.6-2.3) mg/dL Assessment and Plan Plan: Assessment: 1. Acute kidney injury secondary to ATN secondary to cardiorenal syndrome. Renal function worse. Creatinine 3.96 today. No hydronephrosis noted on kidney ultrasound. 2. Acute on chronic systolic CHF with ejection fraction of 30-35% with moderate to severe aortic regurgitation, mitral regurgitation, mitral stenosis, tricuspid regurgitation. 3. Severe pulmonary hypertension. 4. Volume overload. Improved with diuresis. 5. Chronic kidney disease stage IV with baseline creatinine near 2.5 secondary to nephrosclerosis. 6. Anemia of chronic kidney disease maintained on Aranesp. 7. Hypertension with chronic kidney disease. Stable. Plan: Stop Lasix due to rising BUN and creatinine. Avoid nephrotoxins. Continue to monitor renal function and urine output. Continue to assess daily for need for renal replacement therapy.
--- NOTE | 2020-10-07 11:54 | P.PN ---
Subjective Progress Note Date: 10/07/20 Sean Lin is an 80-year-old male patient who presented to the ER with complaints of increasing shortness of breath over the past few months. Patient also reports swelling to lower extremities. Patient has a past medical history of A. fib, heart failure, COPD, GERD, GI bleed, hypertension, thyroid disorder. BNP elevated at 42,400. Mildly elevated troponin 0.071 and 0.098. Patient's creatinine 2.59 and bun 69 this does appear on patient's baseline. Patient also elevated d-dimer 1.46. VQ scan ordered due to chronic kidney disease. At that time cardiology services will be consulted. Patient started on IV Lasix. Upon examination feet found cold to touch bilaterally right greater than left with swelling and erythema tender to touch. Will start patient on Rocephin for cellulitis. Will consult vascular surgery due to concerns of arterial disease. Will order venous Doppler to rule out DVT. This time patient denies chest pain. Patient does complain of shortness of breath. Patient denies nausea vomiting or diarrhea. Patient denies any urinary burning or frequency. On 09/26/2020 patient was seen and examined on the telemetry floor he is alert and oriented 3 in no apparent distress he is complaining of pain in both feet he is also complaining of shortness of breath with any activity, otherwise he denies any complaint. There is no fever or chills no headache or dizziness no chest pain, no palpitation no cough no nausea or vomiting no abdominal pain no diarrhea no blood in the stools no burning with urination no frequency or urgency and no hematuria, there is no weakness or numbness in any of the extremities no change in vision speech or gait. D-dimer was elevated at 1.46, patient underwent VQ scan that was low probability for pulmonary embolism, bilateral lower extremity Doppler is still pending, patient also had elevated troponin levels at 0.071, 0.098, 0.092 cardiology are consulted, echocardiogram done patient remains on IV heparin at this time, PTT is therapeutic at 91.9, patient has known history of chronic kidney disease at this time BUN is 74 creatinine 2.33 he was seen in the past by Dr. Rojas, Will place a consult for nephrology for follow-up. On 09/27/2020 patient is alert and oriented 3 resting comfortably in bed. Patient does report improvement with overall shortness of breath. Patient remains on IV Lasix. He was started on eliquis per cardiology services for proximal atrial fibrillation. Arterial ultrasound of the lower extremity is ordered per vascular surgery. At this time patient denies any chest pain or shortness of breath. Patient denies nausea vomiting or diarrhea. Patient denies any urinary burning or frequency. Cardiology, nephrology, infectious disease and vascular surgery are following On 09/28/2020 Patient was seen and examined on the medical floor, he is alert and oriented x 3 in no distress, he denies any complaints there is no fever or chills no headache or dizziness no chest pain no shortness of breath no palpitation no cough no nausea or vomiting no abdominal pain no diarrhea no blood in the stools no burning with urination no frequency or urgency and no hematuria, there is no weakness or numbness in any of the extremities no change in vision speech or gait. Patient is still complaining of severe swelling and erythema and tenderness in his bilateral feet, otherwise he denies any complaints at this time. On 09/29/2020 patient was seen and examined on the medical floor he is alert and oriented 3 in no distress he is complaining of lower extremity pain and swelling otherwise he denies any complaints at this time there is no fever or chills no headache or dizziness no chest pain no shortness of breath no cough no nausea or vomiting no abdominal pain no diarrhea no blood in the stools no burning with urination no frequency or urgency and no hematuria On 09/30/2020 patient is alert and oriented 3 patient is complaining of lower extremity pain and swelling perfusing [place] wraps. Patient also educated on the importance of elevation while in bed. Creatinine 3.01 and bun 81. Patient was started on dobutamine per nephrology services Lasix increased. At this time patient denies chest pain or shortness of breath. Patient denies nausea vomiting or diarrhea. Patient denies any urinary burning or frequency On 10/01/2020 patient was seen and examined on the medical floor, he is alert and oriented 3 he is complaining of lower extremity pain and swelling perfusing Chano wraps. Patient also educated on the importance of elevation while in bed. Creatinine 3.01 and bun 81. Patient was started on dobutamine per nephrology services Lasix increased. At this time patient denies chest pain or shortness of breath. Patient denies nausea vomiting or diarrhea. Patient denies any urinary burning or frequency. He was evaluated by nephrology and was started on insulin drip, patient had arterial study on the lower extremities he will be reevaluated by vascular surgery. On 10/02/2020 patient is alert and oriented 3. Patient has been started on Lasix drip per nephrology remains on dobutamine drip. Weight down from 87.4 kg to 87 kg. Creatinine 3.26 and bun 91. At this time patient denies chest pain or shortness of breath. Patient denies nausea vomiting or diarrhea. Patient denies any urinary burning or frequency On 10/03/2020 patient is alert and oriented 3. He is still complaining of bilateral lower extremity edema and pain in the dorsal aspects of both feet due to severe edema , otherwise he denies any complaints at this time there is no fever or chills no headache or dizziness no chest pain he has mild shortness of breath with activity no shortness of breath at rest no nausea or vomiting no abdominal pain no diarrhea and no urinary symptoms Patient has been started on Lasix drip per nephrology remains on dobutamine drip. Weight down to 85.9 kg. Creatinine 3.26 and bun 91. At this time patient denies chest pain or shortness of breath. Patient denies nausea vomiting or diarrhea. Patient denies any urinary burning or frequency On 10/04/2020 patient is alert and oriented 3. Patient does report improvement with shortness of breath. Weight down from 85.9-82.6 kg. Patient remains on Lasix drip per nephrology. Patient still complaining of bilateral knee pain and patient was reevaluated by vascular surgery continue current medical management no plans for surgical intervention. Patient denies chest pain or shortness breath. Patient denies nausea vomiting or diarrhea. Patient denies any urinary burning or frequency On 10/05/2020 patient was seen and examined on the medical floor he is alert and oriented 3 in no apparent distress, he reports improvement in his shortness of breath and his lower extremity edema, kidney function slightly worse, patient denies any fever or chills no headache or dizziness no chest pain no cough no nausea or vomiting no abdominal pain no diarrhea no burning with urination no frequency or urgency and no hematuria. On 10/06/2020 patient was seen and examined on the medical floor he is alert and oriented 3 in no apparent distress, he is feeling more tired and weak today, kidney function again worse today. patient denies any fever or chills no headache or dizziness no chest pain no cough no nausea or vomiting no abdominal pain no diarrhea no burning with urination no frequency or urgency and no hematuria. Nephrology following at this time Lasix drip was discontinued and patient was started on IV Lasix twice a day Will monitor closely On 10/07/2020 patient is alert and oriented 3. Patient is feeling nauseous today. Patient's creatinine increasing to 3.96. Patient was switched from Lasix drip to IV Lasix yesterday. Per nephrology services IV Lasix will be held due to increasing creatinine area and patient denies chest pain or shortness of breath. Patient denies any urinary burning or frequency Objective - Vital Signs Vital signs: Vital Signs Temp 98 F 10/07/20 11:11 Pulse 60 10/07/20 11:11 Resp 18 10/07/20 11:11 BP 144/61 10/07/20 11:11 Pulse Ox 97 10/07/20 11:11 Intake & Output 10/06/20 10/07/20 10/07/20 18:59 06:59 18:59 Intake Total 1360 420 Output Total 200 1160 255 Balance 1160 -1160 165 Weight 78.3 kg Intake: Oral 1360 420 Output: Urine 200 1160 255 Other: Voiding Method Urinal # Voids 2 2 1 - Exam In general patient is alert and oriented 3 in no distress Head normocephalic and atraumatic Neck supple no JVD no goiter Lungs diminished bilaterally no crackles no wheezing Heart regular rate and rhythm S1-S2, no rub or gallop Abdomen is soft nontender nondistended positive bowel sounds no hepatosplenomegaly Extremities +3 pedal edema noted to right side. Left +1. Bilateral spread is noted to feet. Neuro no gross focal neurological deficit - Labs CBC & Chem 7: 10/05/20 07:20 10/07/20 06:41 Labs: Abnormal Lab Results - Last 24 Hours (Table) 10/07/20 Range/Units 06:41 Sodium 134 L (137-145) mmol/L Chloride 87 L (98-107) mmol/L Carbon Dioxide 33 H (22-30) mmol/L BUN 134 H* (9-20) mg/dL Creatinine 3.96 H (0.66-1.25) mg/dL Glucose 106 H (74-99) mg/dL Magnesium 2.8 H (1.6-2.3) mg/dL Assessment and Plan Assessment: 1. Shortness breath secondary to acute on chronic systolic CHF exacerbation. BNP elevated at 43,000. Patient started on IV Lasix. Cardiomegaly with diffuse bilateral perihilar reticular opacities compatible with interstitial pulmonary disease. 2. Elevated d-dimer. D-dimer 1.46. Venous Doppler ordered to rule out DVT. VQ scan completed showing low probability of PE 3. Elevated troponins. Cardiology services following. Per cardiology note related to ACS 4. Cellulitis to lower extremities. She started on Rocephin. Infectious disease consulted IV antibiotics DC'd 5. Chronic kidney disease stage III. Creatinine 2.5 and bun 69 this does appear on patient's baseline. Nephrology services following. Dobutamine added. Lasix increased. Lasix drips added per nephrology. Patient transitioned to IV Lasix. Lasix held at this time due to increasing creatinine per nephrology 6. 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 History of COPD 8. Paroxysmal atrial fibrillation. Patient started on eliquis per cardiology services 9. Moderate bilateral fem-pop disease. Ultrasound of arteries completed of lo wer extremity. Patient was evaluated by vascular surgical services recommendations of floating compression stockings or Chano wrapped bilateral lower extremities. Patient currently refusing. No indications for vascular surgical intervention at this time 10. Hemorrhoids. hydrocortisone suppositories added DVT prophylaxis eliquis. GI prophylaxis Protonix Cardiology, nephrology, infectious disease and vascular surgery following
[2020-10-07 13:26] VITALS: BMI 25.4
[2020-10-07] MEDS ORDERED: FUROSEMIDE 40 MG TAB PO SCH (16:00)
--- NOTE | 2020-10-07 16:37 | PN ---
PROGRESS NOTE DATE OF SERVICE: 10/07/2020 REASON FOR FOLLOWUP: Bilateral foot cellulitis and Athlete's foot. INTERVAL HISTORY: The patient is afebrile. The patient mentioned overall not feeling very good today. Breathing comfortably though. No chest pain. No cough. No abdominal pain. Did have pain to foot but no worsening. PHYSICAL EXAMINATION: Blood pressure is 144/61, pulse of 60, temperature 98. She is 97% on room air. General description: The patient is an elderly male up in the bed in no distress. RESPIRATORY SYSTEM: Unlabored breathing. Decreased breath sounds. No wheeze. HEART: S1, S2. Regular rate and rhythm. ABDOMEN: Soft, no tenderness. Bilateral feet remain to be swollen. Slightly warm. No drainage. LABORATORY DATA: BUN 122, creatinine 2.9. DIAGNOSTIC IMPRESSION AND PLAN: This patient with bilateral foot swelling with evidence of significant fluid overload with worsening of his kidney function. Patient continue with supportive care. MMODL / IJN: [id number] /
[2020-10-07] MEDS: DOCUSATE 100 MG CAP PO SCH (21:00)
[2020-10-07] MEDS: LEVOTHYROXINE 88 MCG TAB PO SCH (21:00)
[2020-10-07] MEDS: FERROUS SULFATE 325 MG TAB PO SCH (21:13)
[2020-10-08] MEDS: HYDROmorphone 0.5 MG/0.5 ML SYRINGE IVP PRN ×2 (03:50→20:40)
[2020-10-08] MEDS: carvediloL 6.25 MG TAB PO SCH ×2 (06:14→16:27)
[2020-10-08] MEDS: PANTOPRAZOLE 40 MG TABLET PO SCH (06:14)
[2020-10-08 07:55] LABS: Basophils % (A) 1 %; Eosinophils # (A) 0.4 k/uL (0-0.7); Eosinophils % (A) 4 %; HCT 32.5 % (39.0-53.0); HGB 10.6 gm/dL (13.0-17.5); Lymphocytes # (A) 0.3 k/uL (1.0-4.8); Lymphocytes % (A) 4 %; MCH 29.5 pg (25.0-35.0); MCHC 32.6 g/dL (31.0-37.0); MCV 90.3 fL (80.0-100.0); Mean Platelet Volume 8.4; Monocytes % (A) 11 %; Neutrophils # (A) 7.3 k/uL (1.3-7.7); Neutrophils % (A) 78 %; Platelet Count 288 k/uL (150-450); RDW 15.1 % (11.5-15.5); WBC 9.3 k/uL (3.8-10.6)
[2020-10-08 08:19] LABS: Albumin 3.8 g/dL (3.5-5.0); Magnesium 2.9 mg/dL (1.6-2.3); Potassium 3.8 mmol/L (3.5-5.1); Total Bilirubin 0.3 mg/dL (0.2-1.3); Total Protein 6.2 g/dL (6.3-8.2)
[2020-10-08] MEDS: allopurinoL 100 MG TAB PO SCH (08:20)
[2020-10-08] MEDS: APIXABAN 2.5 MG TABLET PO SCH ×2 (08:21→20:03)
[2020-10-08] MEDS: CEPHALEXIN 250 MG CAP PO SCH ×3 (08:21→20:03)
[2020-10-08] MEDS: hydrALAZINE HCL 25 MG TAB PO SCH ×3 (08:21→20:03)
[2020-10-08] MEDS: NYSTATIN 100,000 UNIT/GM POWD 15 GM TOPICAL SCH ×2 (08:22→20:04)
[2020-10-08] MEDS: ALBUTEROL HFA INHALER INHALATION PRN ×2 (09:01→12:09)
--- NOTE | 2020-10-08 10:11 | P.PN ---
Subjective Patient is seen in follow-up for acute kidney injury on chronic kidney disease. Diuretics stopped yesterday. Edema improved. Feels better today. No nausea or vomiting. Good urine output. Hemodynamically stable. Vital signs are stable. General: The patient appeared well nourished and normally developed. HEENT: Head exam is unremarkable. Neck is without jugular venous distension. LUNGS: Breath sounds decreased. HEART: Rate and Rhythm are regular. ABDOMEN: Soft, no distention. EXTREMITITES: Trace edema. Objective - Vital Signs Vital signs: Vital Signs Temp 98.0 F 10/08/20 08:30 Pulse 61 10/08/20 08:30 Resp 18 10/08/20 08:30 BP 157/61 10/08/20 08:30 Pulse Ox 97 10/08/20 08:30 Intake & Output 10/07/20 10/08/20 10/08/20 18:59 06:59 18:59 Intake Total 420 240 360 Output Total 455 200 Balance -35 240 160 Weight 78.3 kg 78.9 kg Intake: Oral 420 240 360 Output: Urine 455 200 Other: Voiding Method Urinal Urinal # Voids 1 # Bowel Movements 1 - Labs CBC & Chem 7: 10/08/20 07:25 10/08/20 07:25 Labs: Abnormal Lab Results - Last 24 Hours (Table) 10/08/20 10/08/20 Range/Units 07:25 07:25 RBC 3.60 L (4.30-5.90) m/uL Hgb 10.6 L (13.0-17.5) gm/dL Hct 32.5 L (39.0-53.0) % Lymphocytes # 0.3 L (1.0-4.8) k/uL Sodium 135 L (137-145) mmol/L Chloride 89 L (98-107) mmol/L Carbon Dioxide 35 H (22-30) mmol/L BUN 141 H* (9-20) mg/dL Creatinine 3.94 H (0.66-1.25) mg/dL Glucose 116 H (74-99) mg/dL Magnesium 2.9 H (1.6-2.3) mg/dL Total Protein 6.2 L (6.3-8.2) g/dL Assessment and Plan Plan: Assessment: 1. Acute kidney injury secondary to ATN secondary to cardiorenal syndrome. Renal function stable. Creatinine 3.94 today. No hydronephrosis noted on kidney ultrasound. 2. Acute on chronic systolic CHF with ejection fraction of 30-35% with moderate to severe aortic regurgitation, mitral regurgitation, mitral stenosis, tricuspid regurgitation. 3. Severe pulmonary hypertension. 4. Volume overload. Improved with diuresis. 5. Chronic kidney disease stage IV with baseline creatinine near 2.5 secondary to nephrosclerosis. 6. Anemia of chronic kidney disease maintained on Aranesp. 7. Hypertension with chronic kidney disease. Stable. Plan: Continue to hold Lasix due to rising BUN and creatinine. Avoid nephrotoxins. Continue to monitor renal function and urine output. Continue to assess daily for need for renal replacement therapy. No urgency at this time. Repeat chest x-ray tomorrow morning.
--- NOTE | 2020-10-08 10:18 | P.PN ---
Subjective Progress Note Date: 10/08/20 Sean Lin is an 80-year-old male patient who presented to the ER with complaints of increasing shortness of breath over the past few months. Patient also reports swelling to lower extremities. Patient has a past medical history of A. fib, heart failure, COPD, GERD, GI bleed, hypertension, thyroid disorder. BNP elevated at 42,400. Mildly elevated troponin 0.071 and 0.098. Patient's creatinine 2.59 and bun 69 this does appear on patient's baseline. Patient also elevated d-dimer 1.46. VQ scan ordered due to chronic kidney disease. At that time cardiology services will be consulted. Patient started on IV Lasix. Upon examination feet found cold to touch bilaterally right greater than left with swelling and erythema tender to touch. Will start patient on Rocephin for cellulitis. Will consult vascular surgery due to concerns of arterial disease. Will order venous Doppler to rule out DVT. This time patient denies chest pain. Patient does complain of shortness of breath. Patient denies nausea vomiting or diarrhea. Patient denies any urinary burning or frequency. On 09/26/2020 patient was seen and examined on the telemetry floor he is alert and oriented 3 in no apparent distress he is complaining of pain in both feet he is also complaining of shortness of breath with any activity, otherwise he denies any complaint. There is no fever or chills no headache or dizziness no chest pain, no palpitation no cough no nausea or vomiting no abdominal pain no diarrhea no blood in the stools no burning with urination no frequency or urgency and no hematuria, there is no weakness or numbness in any of the extremities no change in vision speech or gait. D-dimer was elevated at 1.46, patient underwent VQ scan that was low probability for pulmonary embolism, bilateral lower extremity Doppler is still pending, patient also had elevated troponin levels at 0.071, 0.098, 0.092 cardiology are consulted, echocardiogram done patient remains on IV heparin at this time, PTT is therapeutic at 91.9, patient has known history of chronic kidney disease at this time BUN is 74 creatinine 2.33 he was seen in the past by Dr. Rojas, Will place a consult for nephrology for follow-up. On 09/27/2020 patient is alert and oriented 3 resting comfortably in bed. Patient does report improvement with overall shortness of breath. Patient remains on IV Lasix. He was started on eliquis per cardiology services for proximal atrial fibrillation. Arterial ultrasound of the lower extremity is ordered per vascular surgery. At this time patient denies any chest pain or shortness of breath. Patient denies nausea vomiting or diarrhea. Patient denies any urinary burning or frequency. Cardiology, nephrology, infectious disease and vascular surgery are following On 09/28/2020 Patient was seen and examined on the medical floor, he is alert and oriented x 3 in no distress, he denies any complaints there is no fever or chills no headache or dizziness no chest pain no shortness of breath no palpitation no cough no nausea or vomiting no abdominal pain no diarrhea no blood in the stools no burning with urination no frequency or urgency and no hematuria, there is no weakness or numbness in any of the extremities no change in vision speech or gait. Patient is still complaining of severe swelling and erythema and tenderness in his bilateral feet, otherwise he denies any complaints at this time. On 09/29/2020 patient was seen and examined on the medical floor he is alert and oriented 3 in no distress he is complaining of lower extremity pain and swelling otherwise he denies any complaints at this time there is no fever or chills no headache or dizziness no chest pain no shortness of breath no cough no nausea or vomiting no abdominal pain no diarrhea no blood in the stools no burning with urination no frequency or urgency and no hematuria On 09/30/2020 patient is alert and oriented 3 patient is complaining of lower extremity pain and swelling perfusing Chano wraps. Patient also educated on the importance of elevation while in bed. Creatinine 3.01 and bun 81. Patient was started on dobutamine per nephrology services Lasix increased. At this time patient denies chest pain or shortness of breath. Patient denies nausea vomiting or diarrhea. Patient denies any urinary burning or frequency On 10/01/2020 patient was seen and examined on the medical floor, he is alert and oriented 3 he is complaining of lower extremity pain and swelling perfusing Chano wraps. Patient also educated on the importance of elevation while in bed. Creatinine 3.01 and bun 81. Patient was started on dobutamine per nephrology services Lasix increased. At this time patient denies chest pain or shortness of breath. Patient denies nausea vomiting or diarrhea. Patient denies any urinary burning or frequency. He was evaluated by nephrology and was started on insulin drip, patient had arterial study on the lower extremities he will be reevaluated by vascular surgery. On 10/02/2020 patient is alert and oriented 3. Patient has been started on Lasix drip per nephrology remains on dobutamine drip. Weight down from 87.4 kg to 87 kg. Creatinine 3.26 and bun 91. At this time patient denies chest pain or shortness of breath. Patient denies nausea vomiting or diarrhea. Patient denies any urinary burning or frequency On 10/03/2020 patient is alert and oriented 3. He is still complaining of bilateral lower extremity edema and pain in the dorsal aspects of both feet due to severe edema , otherwise he denies any complaints at this time there is no fever or chills no headache or dizziness no chest pain he has mild shortness of breath with activity no shortness of breath at rest no nausea or vomiting no abdominal pain no diarrhea and no urinary symptoms Patient has been started on Lasix drip per nephrology remains on dobutamine drip. Weight down to 85.9 kg. Creatinine 3.26 and bun 91. At this time patient denies chest pain or shortness of breath. Patient denies nausea vomiting or diarrhea. Patient denies any urinary burning or frequency On 10/04/2020 patient is alert and oriented 3. Patient does report improvement with shortness of breath. Weight down from 85.9-82.6 kg. Patient remains on Lasix drip per nephrology. Patient still complaining of bilateral knee pain and patient was reevaluated by vascular surgery continue current medical management no plans for surgical intervention. Patient denies chest pain or shortness breath. Patient denies nausea vomiting or diarrhea. Patient denies any urinary burning or frequency On 10/05/2020 patient was seen and examined on the medical floor he is alert and oriented 3 in no apparent distress, he reports improvement in his shortness of breath and his lower extremity edema, kidney function slightly worse, patient denies any fever or chills no headache or dizziness no chest pain no cough no nausea or vomiting no abdominal pain no diarrhea no burning with urination no frequency or urgency and no hematuria. On 10/06/2020 patient was seen and examined on the medical floor he is alert and oriented 3 in no apparent distress, he is feeling more tired and weak today, kidney function again worse today. patient denies any fever or chills no headache or dizziness no chest pain no cough no nausea or vomiting no abdominal pain no diarrhea no burning with urination no frequency or urgency and no hematuria. Nephrology following at this time Lasix drip was discontinued and patient was started on IV Lasix twice a day Will monitor closely On 10/07/2020 patient is alert and oriented 3. Patient is feeling nauseous today. Patient's creatinine increasing to 3.96. Patient was switched from Lasix drip to IV Lasix yesterday. Per nephrology services IV Lasix will be held due to increasing creatinine area and patient denies chest pain or shortness of breath. Patient denies any urinary burning or frequency On 10/08/2020 patient is alert and oriented 3. Patient reports improvement with nausea. Diuretics were stopped for nephrology yesterday. Edema does appear improved to lower extremities. Patient remains with good urine output. Creatinine 3.94 and bun 141. Per nephrology services continue to hold Lasix due to rising bun and creatinine. This time patient denies chest pain or shortness of breath. Patient denies nausea vomiting or diarrhea. Patient denies any urinary burning or frequency Objective - Vital Signs Vital signs: Vital Signs Temp 98.0 F 10/08/20 08:30 Pulse 61 10/08/20 08:30 Resp 18 10/08/20 08:30 BP 157/61 10/08/20 08:30 Pulse Ox 97 10/08/20 08:30 Intake & Output 10/07/20 10/08/20 10/08/20 18:59 06:59 18:59 Intake Total 420 240 360 Output Total 455 200 Balance -35 240 160 Weight 78.3 kg 78.9 kg Intake: Oral 420 240 360 Output: Urine 455 200 Other: Voiding Method Urinal Urinal # Voids 1 # Bowel Movements 1 - Exam In general patient is alert and oriented 3 in no distress Head normocephalic and atraumatic Neck supple no JVD no goiter Lungs diminished bilaterally no crackles no wheezing Heart regular rate and rhythm S1-S2, no rub or gallop Abdomen is soft nontender nondistended positive bowel sounds no hepatosplenomegaly Extremities +3 pedal edema noted to right side. Left +1. Bilateral spread is noted to feet. Neuro no gross focal neurological deficit - Labs CBC & Chem 7: 10/08/20 07:25 10/08/20 07:25 Labs: Abnormal Lab Results - Last 24 Hours (Table) 10/08/20 10/08/20 Range/Units 07:25 07:25 RBC 3.60 L (4.30-5.90) m/uL Hgb 10.6 L (13.0-17.5) gm/dL Hct 32.5 L (39.0-53.0) % Lymphocytes # 0.3 L (1.0-4.8) k/uL Sodium 135 L (137-145) mmol/L Chloride 89 L (98-107) mmol/L Carbon Dioxide 35 H (22-30) mmol/L BUN 141 H* (9-20) mg/dL Creatinine 3.94 H (0.66-1.25) mg/dL Glucose 116 H (74-99) mg/dL Magnesium 2.9 H (1.6-2.3) mg/dL Total Protein 6.2 L (6.3-8.2) g/dL Assessment and Plan Assessment: 1. Shortness breath secondary to acute on chronic systolic CHF exacerbation. BNP elevated at 43,000. Patient started on IV Lasix. Cardiomegaly with diffuse bilateral perihilar reticular opacities compatible with interstitial pulmonary disease. 2. Elevated d-dimer. D-dimer 1.46. Venous Doppler ordered to rule out DVT. VQ scan completed showing low probability of PE 3. Elevated troponins. Cardiology services following. Per cardiology note related to ACS 4. Cellulitis to lower extremities. She started on Rocephin. Infectious disease consulted IV antibiotics DC'd 5. Chronic kidney disease stage III. Creatinine 2.5 and bun 69 this does a ppear on patient's baseline. Nephrology services following. Dobutamine added. Lasix increased. Lasix drips added per nephrology. Patient transitioned to IV Lasix. Lasix held at this time due to increasing creatinine per nephrology 6. 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 History of COPD 8. Paroxysmal atrial fibrillation. Patient started on eliquis per cardiology services 9. Moderate bilateral fem-pop disease. Ultrasound of arteries completed of lower extremity. Patient was evaluated by vascular surgical services recommendations of floating compression stockings or Chano wrapped bilateral lower extremities. Patient currently refusing. No indications for vascular surgical intervention at this time 10. Hemorrhoids. hydrocortisone suppositories added DVT prophylaxis eliquis. GI prophylaxis Protonix Cardiology, nephrology, infectious disease and vascular surgery following
[2020-10-08] MEDS: HYDROCORTISONE SUPPOSITORY 25 MG SUPP RECTAL SCH ×2 (16:20→20:03)
[2020-10-08] MEDS: LEVOTHYROXINE 88 MCG TAB PO SCH (20:03)
[2020-10-08] MEDS: FERROUS SULFATE 325 MG TAB PO SCH (20:03)
[2020-10-08] MEDS: DOCUSATE 100 MG CAP PO SCH (20:03)
--- NOTE | 2020-10-08 23:31 | PN ---
PROGRESS NOTE DATE OF SERVICE: 10/08/2020 REASON FOR FOLLOWUP: Bilateral foot cellulitis and athlete's foot. INTERVAL HISTORY: The patient is afebrile. She is breathing slightly comfortably. No chest pain or cough. No abdominal pain. Still has significant swelling in bilateral feet and with this discomfort. No loose stools or any open wound or drainage. PHYSICAL EXAMINATION: Blood pressure 155/54 with a pulse of 60, temperature 97.6. He is 99% on room air. General description is an elderly male up in the bed in no distress. RESPIRATORY SYSTEM: Unlabored breathing. HEART: S1, S2. Regular rate and rhythm. ABDOMEN: Soft, no tenderness. Bilateral feet remain swollen with minimal redness. No significant warmth, open wound or any drainage. LABS: Hemoglobin is 10.6, white count of 9.3. BUN of 141, creatinine 3.94. DIAGNOSTIC IMPRESSION AND PLAN: 1. Patient with bilateral foot swelling secondary significant fluid overload and concern for possible secondary cellulitis, on oral Keflex. 2. Athlete's foot. Continue with nystatin powder. MMODL / IJN: [id number] /
[2020-10-09] MEDS: HYDROmorphone 0.5 MG/0.5 ML SYRINGE IVP PRN (04:26)
[2020-10-09] MEDS: PANTOPRAZOLE 40 MG TABLET PO SCH (06:15)
[2020-10-09] MEDS: carvediloL 6.25 MG TAB PO SCH ×2 (06:15→16:49)
--- NOTE | 2020-10-09 07:38 | XR ---
EXAMINATION TYPE: XR chest 1V DATE OF EXAM: 10/09/2020 COMPARISON: 10/06/2020 HISTORY: Shortness of breath TECHNIQUE: Single frontal view of the chest is obtained. FINDINGS: Heart is enlarged. Multiple overlying leads. Patient is rotated. Left Generator is present in left pectoral region, there are leads in right atrium and ventricle as on prior. No pleural effus ion or pneumothorax. Minimal linear left basilar atelectasis or developing pneumonitis. IMPRESSION: 1. Gross cardiomegaly. 2. Left infraclavicular generator device with stable leads. 3. Minimal linear left basilar atelectasis or developing pneumonitis.
[2020-10-09] MEDS: NYSTATIN 100,000 UNIT/GM POWD 15 GM TOPICAL SCH ×2 (07:39→20:32)
[2020-10-09] MEDS: HYDROCORTISONE SUPPOSITORY 25 MG SUPP RECTAL SCH ×2 (07:39→20:32)
[2020-10-09] MEDS: hydrALAZINE HCL 25 MG TAB PO SCH ×3 (07:44→20:32)
[2020-10-09] MEDS: allopurinoL 100 MG TAB PO SCH (07:44)
[2020-10-09] MEDS: CEPHALEXIN 250 MG CAP PO SCH ×3 (07:44→20:31)
[2020-10-09] MEDS: APIXABAN 2.5 MG TABLET PO SCH ×2 (07:44→20:32)
[2020-10-09 07:55] LABS: Albumin 3.9 g/dL (3.5-5.0); Calcium 8.9 mg/dL (8.4-10.2); Magnesium 2.9 mg/dL (1.6-2.3); Total Bilirubin 0.4 mg/dL (0.2-1.3); Total Protein 6.3 g/dL (6.3-8.2)
[2020-10-09 07:57] LABS: Basophils # (A) 0.1 k/uL (0-0.2); Basophils % (A) 1 %; Eosinophils # (A) 0.3 k/uL (0-0.7); Eosinophils % (A) 4 %; HCT 32.2 % (39.0-53.0); HGB 10.6 gm/dL (13.0-17.5); Lymphocytes # (A) 0.4 k/uL (1.0-4.8); Lymphocytes % (A) 5 %; MCH 29.5 pg (25.0-35.0); MCV 89.4 fL (80.0-100.0); Mean Platelet Volume 7.9; Monocytes # (A) 0.8 k/uL (0-1.0); Monocytes % (A) 9 %; Neutrophils # (A) 6.8 k/uL (1.3-7.7); Neutrophils % (A) 79 %; Platelet Count 277 k/uL (150-450); RDW 15.1 % (11.5-15.5); WBC 8.6 k/uL (3.8-10.6)
[2020-10-09] MEDS ORDERED: FUROSEMIDE 10 MG/ML 10 ML VIAL IV STA (10:11)
--- NOTE | 2020-10-09 10:11 | P.PN ---
Subjective Patient is seen in follow-up for acute kidney injury on chronic kidney disease. Diuretics stopped October 07. No improvement in renal function. BUN remains elevated. Appetite is poor. Edema worse. Vital signs are stable. General: The patient appeared well nourished and normally developed. HEENT: Head exam is unremarkable. Neck is without jugular venous distension. LUNGS: Breath sounds decreased. HEART: Rate and Rhythm are regular. ABDOMEN: Soft, no distention. EXTREMITITES: 1+ edema. Objective - Vital Signs Vital signs: Vital Signs Temp 97.8 F 10/09/20 07:45 Pulse 60 10/09/20 07:46 Resp 18 10/09/20 07:45 BP 153/55 10/09/20 07:45 Pulse Ox 98 10/09/20 07:45 Intake & Output 10/08/20 10/09/20 10/09/20 18:59 06:59 18:59 Intake Total 1080 240 Output Total 200 400 Balance 880 -160 Weight 84.6 kg Intake: Oral 1080 240 Output: Urine 200 400 Other: Voiding Method Urinal Urinal - Labs CBC & Chem 7: 10/09/20 06:45 10/09/20 06:45 Labs: Abnormal Lab Results - Last 24 Hours (Table) 10/09/20 10/09/20 Range/Units 06:45 06:45 RBC 3.60 L (4.30-5.90) m/uL Hgb 10.6 L (13.0-17.5) gm/dL Hct 32.2 L (39.0-53.0) % Lymphocytes # 0.4 L (1.0-4.8) k/uL Sodium 135 L (137-145) mmol/L Chloride 89 L (98-107) mmol/L Carbon Dioxide 33 H (22-30) mmol/L BUN 144 H* (9-20) mg/dL Creatinine 3.81 H (0.66-1.25) mg/dL Magnesium 2.9 H (1.6-2.3) mg/dL Assessment and Plan Plan: Assessment: 1. Acute kidney injury secondary to ATN secondary to cardiorenal syndrome. Renal function stable. Creatinine 3.81 today. No hydronephrosis noted on kidney ultrasound. 2. Acute on chronic systolic CHF with ejection fraction of 30-35% with moderate to severe aortic regurgitation, mitral regurgitation, mitral stenosis, tricuspid regurgitation. 3. Severe pulmonary hypertension. 4. Volume overload. Improved with diuresis. Urine output lower as Lasix held. 5. Chronic kidney disease stage IV with baseline creatinine near 2.5 secondary to nephrosclerosis. 6. Anemia of chronic kidney disease maintained on Aranesp. 7. Hypertension with chronic kidney disease. Stable. Plan: Lasix 60 mg IV once today. Avoid nephrotoxins. With worsening renal function, fluid overload and signs of uremia, initiate renal replacement therapy. Patient agreeable. Consult vascular surgery for dialysis catheter placement. Anticoagulation is held. Plan for first treatment of hemodialysis tomorrow. Continue to monitor renal function and urine output.
--- NOTE | 2020-10-09 13:06 | P.GSCN ---
History of Present Illness History of present illness: 80-year-old gentleman admitted with shortness of breath patient has a history of for acute chronic renal failure patient had his renal workup creatinine is high patient had a ultrasound of the kidney hydronephrosis and bilateral. I was consulted for placement of a dialysis catheter Past history patient had pacemaker placed on the left side Patient was seen in the room. His neck is supple no bruit appreciated chest is has some rhonchi bilateral pulses second sound present graft abdomen soft nontender Vascular brachial radial and femoral pulses are present patient has a marked swelling of the both lower extremity with pitting edema Plan is placement of the dialysis catheter patient wants to discuss with Dr. Barger before the catheter placement if all okay we'll proceed tomorrow risk and complication discussed Past Medical History Past Medical History: Atrial Fibrillation, Blood Disorder, Heart Failure, COPD, GERD/Reflux, GI Bleed, Hypertension, Thyroid Disorder Additional Past Medical History / Comment(s): ANEMIA, HIATAL HERNIA (PER EGD) arrhythmia, skin cancer - RUE, LUE, R catholic, Nose (sees Dr. 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 Past Anesthesia/Blood Transfusion Reactions: No Reported Reaction Additional Past Anesthesia/Blood Transfusion Reaction / Comm: Pt has received blood in past without reaction. Type of Cardiac Device: Permanent Pacemaker Device Placement Date:: 09/28/19 Past Psychological History: No Psychological Hx Reported Smoking Status: Former smoker Past Alcohol Use History: None Reported Past Drug Use History: None Reported - Past Family History Mother Family Medical History: No Reported History Additional Family Medical History / Comment(s): Mother was healthy and lived to be 97yrs old. Daughter(s) History Unknown: Yes Family Medical History: Cancer Additional Family Medical History / Comment(s): uterine/lung/brain CA - current terminal Father History Unknown: Yes Family Medical History: Cancer Additional Family Medical History / Comment(s): prostate CA - from Medications and Allergies Home Medications Medication Instructions Recorded Confirmed Type Multivitamin [Men's Multi-Vitamin] 1 tab PO HS 12/13/14 09/25/20 History Levothyroxine Sodium [Synthroid] 88 mcg PO HS 08/30/19 09/25/20 History Losartan [Cozaar] 25 mg PO HS tab 10/02/19 09/25/20 Rx Docusate [Colace] 100 mg PO HS 03/18/20 09/25/20 History Allopurinol [Zyloprim] 100 mg PO DAILY 09/25/20 09/25/20 History Furosemide [Lasix] 40 mg PO HS 09/25/20 09/25/20 History Iron 27 Mg 27 mg PO HS 09/25/20 09/25/20 History Torsemide [Demadex] 20 mg PO DAILY PRN 09/25/20 09/25/20 History carvediloL [Coreg] 6.25 mg PO BID 09/25/20 09/25/20 History Allergies Allergy/AdvReac Type Severity Reaction Status Date / Time Sulfa (Sulfonamide Allergy Rash/Hives Verified 09/25/20 01:05 Antibiotics) Surgical - Exam Vital Signs Temp Pulse Resp BP Pulse Ox 97.4 F L 66 24 183/67 97 09/25/20 01:05 09/25/20 01:05 09/25/20 01:05 09/25/20 01:05 09/25/20 01:05 Results - Labs 10/09/20 06:45 10/09/20 06:45 Abnormal Lab Results - Last 24 Hours (Table) 10/09/20 10/09/20 Range/Units 06:45 06:45 RBC 3.60 L (4.30-5.90) m/uL Hgb 10.6 L (13.0-17.5) gm/dL Hct 32.2 L (39.0-53.0) % Lymphocytes # 0.4 L (1.0-4.8) k/uL Sodium 135 L (137-145) mmol/L Chloride 89 L (98-107) mmol/L Carbon Dioxide 33 H (22-30) mmol/L BUN 144 H* (9-20) mg/dL Creatinine 3.81 H (0.66-1.25) mg/dL Magnesium 2.9 H (1.6-2.3) mg/dL Diabetes panel 10/09/20 Range/Units 06:45 Sodium 135 L (137-145) mmol/L Potassium 4.0 (3.5-5.1) mmol/L Chloride 89 L (98-107) mmol/L Carbon Dioxide 33 H (22-30) mmol/L BUN 144 H* (9-20) mg/dL Creatinine 3.81 H (0.66-1.25) mg/dL Glucose 94 (74-99) mg/dL Calcium 8.9 (8.4-10.2) mg/dL AST 25 (17-59) U/L ALT 23 (4-49) U/L Alkaline Phosphatase 74 (38-126) U/L Total Protein 6.3 (6.3-8.2) g/dL Albumin 3.9 (3.5-5.0) g/dL Calcium panel 10/09/20 Range/Units 06:45 Calcium 8.9 (8.4-10.2) mg/dL Albumin 3.9 (3.5-5.0) g/dL Pituitary panel 10/09/20 Range/Units 06:45 Sodium 135 L (137-145) mmol/L Potassium 4.0 (3.5-5.1) mmol/L Chloride 89 L (98-107) mmol/L Carbon Dioxide 33 H (22-30) mmol/L BUN 144 H* (9-20) mg/dL Creatinine 3.81 H (0.66-1.25) mg/dL Glucose 94 (74-99) mg/dL Calcium 8.9 (8.4-10.2) mg/dL Adrenal panel 10/09/20 Range/Units 06:45 Sodium 135 L (137-145) mmol/L Potassium 4.0 (3.5-5.1) mmol/L Chloride 89 L (98-107) mmol/L Carbon Dioxide 33 H (22-30) mmol/L BUN 144 H* (9-20) mg/dL Creatinine 3.81 H (0.66-1.25) mg/dL Glucose 94 (74-99) mg/dL Calcium 8.9 (8.4-10.2) mg/dL Total Bilirubin 0.4 (0.2-1.3) mg/dL AST 25 (17-59) U/L ALT 23 (4-49) U/L Alkaline Phosphatase 74 (38-126) U/L Total Protein 6.3 (6.3-8.2) g/dL Albumin 3.9 (3.5-5.0) g/dL
[2020-10-09] MEDS: DOCUSATE 100 MG CAP PO SCH (20:31)
[2020-10-09] MEDS: FERROUS SULFATE 325 MG TAB PO SCH (20:32)
[2020-10-09] MEDS: LEVOTHYROXINE 88 MCG TAB PO SCH (20:32)
[2020-10-10] MEDS: HYDROmorphone 0.5 MG/0.5 ML SYRINGE IVP PRN ×2 (03:22→19:06)
[2020-10-10 04:23] LABS: Hepatitis B Surface AB- Quant <3.5 mIU/mL; Hepatitis B Surface Antibody Non-Reactive (Non-Reactive); Hepatitis B Surface Antigen Non-Reactive (Non-Reactive)
[2020-10-10] MEDS: carvediloL 6.25 MG TAB PO SCH ×2 (06:50→16:40)
[2020-10-10] MEDS: PANTOPRAZOLE 40 MG TABLET PO SCH (06:50)
[2020-10-10] MEDS ORDERED: SODIUM CHLORIDE 0.9% 500 ML 500 ML IV ONE (08:18)
[2020-10-10] MEDS ORDERED: LIDOCAINE 1% INJ 10MG/ML (20 ML MDV) SQ ONE (08:30)
[2020-10-10] MEDS: MIDAZOLAM 2 MG/2 ML VIAL IV ONE ×2 (08:31→08:37)
[2020-10-10] MEDS: fentaNYL (PF) 50 MCG/ML 2 ML AMP IV ONE ×2 (08:39→08:58)
[2020-10-10] MEDS ORDERED: HEPARIN SODIUM 1,000 UN/ML (10ML VL) IRRIGATION ONE (08:56)
[2020-10-10] MEDS: CEPHALEXIN 250 MG CAP PO SCH ×3 (09:59→21:12)
[2020-10-10] MEDS: hydrALAZINE HCL 25 MG TAB PO SCH ×3 (09:59→21:12)
[2020-10-10] MEDS: APIXABAN 2.5 MG TABLET PO SCH ×2 (09:59→21:12)
[2020-10-10] MEDS: HYDROCORTISONE SUPPOSITORY 25 MG SUPP RECTAL SCH ×2 (09:59→21:12)
[2020-10-10] MEDS: allopurinoL 100 MG TAB PO SCH (09:59)
[2020-10-10] MEDS: NYSTATIN 100,000 UNIT/GM POWD 15 GM TOPICAL SCH ×2 (09:59→21:13)
--- NOTE | 2020-10-10 10:34 | XR ---
EXAMINATION TYPE: XR chest 1V confirm line [facility] DATE OF EXAM: 10/10/2020 COMPARISON: Chest x-ray 10/09/2020 HISTORY: Hemodialysis catheter placement TECHNIQUE: Single frontal view of the chest is obtained. FINDINGS: There is been interval placement of a right jugular central venous catheter via jugular ap proach. Distal tip is within the right atrium. No evident pneumothorax. No other significant interval change. IMPRESSION: No evident complication status post central venous catheter placement
[2020-10-10 12:27] LABS: Hepatitis A Antibody IgM Non-Reactive (Non-Reactive); Hepatitis B Core IgM Non-Reactive (Non-Reactive); Hepatitis B Surface Antigen Non-Reactive (Non-Reactive); Hepatitis C IgG Antibody Non-Reactive (Non-Reactive)
[2020-10-10 13:02] LABS: HGB 9.7 gm/dL (13.0-17.5); MCH 29.1 pg (25.0-35.0); MCHC 32.4 g/dL (31.0-37.0); MCV 89.8 fL (80.0-100.0); Mean Platelet Volume 8.5; Platelet Count 256 k/uL (150-450); RBC 3.34 m/uL (4.30-5.90); RDW 14.9 % (11.5-15.5); WBC 2.4 k/uL (3.8-10.6)
[2020-10-10 13:17] LABS: Calcium 8.6 mg/dL (8.4-10.2); Potassium 3.3 mmol/L (3.5-5.1)
--- NOTE | 2020-10-10 15:02 | PCN ---
PROCEDURE NOTE PREOPERATIVE DIAGNOSIS: Acute on chronic renal failure. POSTOPERATIVE DIAGNOSIS: Acute on chronic renal failure. PROCEDURE: Ultrasound-guided 23 cm dialysis catheter placed in the right jugular approach. ANESTHESIA: Sedation time was 25 minutes. PROCEDURE: This patient was brought to the rn labor and delivery. Right side of the neck and chest was prepped and draped in a sterile manner. 1% lidocaine was infiltrated. Ultrasound-guided micropuncture into the right jugular vein, micropuncture guidewire was passed and 4- Maltese dilator advanced on top of the guidewire. Then we passed a regular guidewire under fluoroscopy control. The guidewire was parked in the inferior vena cava. After that a tunnel was created. Through the tunnel we brought a 23 cm dialysis catheter. The dilator was advanced under fluoroscopy control and through the sheath we introduced the dialysis catheter. Sheath was removed. Tip of the catheter in superior vena cava atrial junction. Flushed with heparin saline and hep-locked. Dressing applied. Patient tolerated the procedure well. MMODL / IJN: [id number] /
--- NOTE | 2020-10-10 16:34 | P.PN ---
Subjective Progress Note Date: 10/09/20 Sean Lin is an 80-year-old male patient who presented to the ER with complaints of increasing shortness of breath over the past few months. Patient also reports swelling to lower extremities. Patient has a past medical history of A. fib, heart failure, COPD, GERD, GI bleed, hypertension, thyroid disorder. BNP elevated at 42,400. Mildly elevated troponin 0.071 and 0.098. Patient's creatinine 2.59 and bun 69 this does appear on patient's baseline. Patient also elevated d-dimer 1.46. VQ scan ordered due to chronic kidney disease. At that time cardiology services will be consulted. Patient started on IV Lasix. Upon examination feet found cold to touch bilaterally right greater than left with swelling and erythema tender to touch. Will start patient on Rocephin for cellulitis. Will consult vascular surgery due to concerns of arterial disease. Will order venous Doppler to rule out DVT. This time patient denies chest pain. Patient does complain of shortness of breath. Patient denies nausea vomiting or diarrhea. Patient denies any urinary burning or frequency. On 09/26/2020 patient was seen and examined on the telemetry floor he is alert and oriented 3 in no apparent distress he is complaining of pain in both feet he is also complaining of shortness of breath with any activity, otherwise he denies any complaint. There is no fever or chills no headache or dizziness no chest pain, no palpitation no cough no nausea or vomiting no abdominal pain no diarrhea no blood in the stools no burning with urination no frequency or urgency and no hematuria, there is no weakness or numbness in any of the extremities no change in vision speech or gait. D-dimer was elevated at 1.46, patient underwent VQ scan that was low probability for pulmonary embolism, bilateral lower extremity Doppler is still pending, patient also had elevated troponin levels at 0.071, 0.098, 0.092 cardiology are consulted, echocardiogram done patient remains on IV heparin at this time, PTT is therapeutic at 91.9, patient has known history of chronic kidney disease at this time BUN is 74 creatinine 2.33 he was seen in the past by Dr. Rojas, Will place a consult for nephrology for follow-up. On 09/27/2020 patient is alert and oriented 3 resting comfortably in bed. Patient does report improvement with overall shortness of breath. Patient remains on IV Lasix. He was started on eliquis per cardiology services for proximal atrial fibrillation. Arterial ultrasound of the lower extremity is ordered per vascular surgery. At this time patient denies any chest pain or shortness of breath. Patient denies nausea vomiting or diarrhea. Patient denies any urinary burning or frequency. Cardiology, nephrology, infectious disease and vascular surgery are following On 09/28/2020 Patient was seen and examined on the medical floor, he is alert and oriented x 3 in no distress, he denies any complaints there is no fever or chills no headache or dizziness no chest pain no shortness of breath no palpitation no cough no nausea or vomiting no abdominal pain no diarrhea no blood in the stools no burning with urination no frequency or urgency and no hematuria, there is no weakness or numbness in any of the extremities no change in vision speech or gait. Patient is still complaining of severe swelling and erythema and tenderness in his bilateral feet, otherwise he denies any complaints at this time. On 09/29/2020 patient was seen and examined on the medical floor he is alert and oriented 3 in no distress he is complaining of lower extremity pain and swelling otherwise he denies any complaints at this time there is no fever or chills no headache or dizziness no chest pain no shortness of breath no cough no nausea or vomiting no abdominal pain no diarrhea no blood in the stools no burning with urination no frequency or urgency and no hematuria On 09/30/2020 patient is alert and oriented 3 patient is complaining of lower extremity pain and swelling perfusing Chano wraps. Patient also educated on the importance of elevation while in bed. Creatinine 3.01 and bun 81. Patient was started on dobutamine per nephrology services Lasix increased. At this time patient denies chest pain or shortness of breath. Patient denies nausea vomiting or diarrhea. Patient denies any urinary burning or frequency On 10/01/2020 patient was seen and examined on the medical floor, he is alert and oriented 3 he is complaining of lower extremity pain and swelling perfusing Chano wraps. Patient also educated on the importance of elevation while in bed. Creatinine 3.01 and bun 81. Patient was started on dobutamine per nephrology services Lasix increased. At this time patient denies chest pain or shortness of breath. Patient denies nausea vomiting or diarrhea. Patient denies any urinary burning or frequency. He was evaluated by nephrology and was started on insulin drip, patient had arterial study on the lower extremities he will be reevaluated by vascular surgery. On 10/02/2020 patient is alert and oriented 3. Patient has been started on Lasix drip per nephrology remains on dobutamine drip. Weight down from 87.4 kg to 87 kg. Creatinine 3.26 and bun 91. At this time patient denies chest pain or shortness of breath. Patient denies nausea vomiting or diarrhea. Patient denies any urinary burning or frequency On 10/03/2020 patient is alert and oriented 3. He is still complaining of bilateral lower extremity edema and pain in the dorsal aspects of both feet due to severe edema , otherwise he denies any complaints at this time there is no fever or chills no headache or dizziness no chest pain he has mild shortness of breath with activity no shortness of breath at rest no nausea or vomiting no abdominal pain no diarrhea and no urinary symptoms Patient has been started on Lasix drip per nephrology remains on dobutamine drip. Weight down to 85.9 kg. Creatinine 3.26 and bun 91. At this time patient denies chest pain or shortness of breath. Patient denies nausea vomiting or diarrhea. Patient denies any urinary burning or frequency On 10/04/2020 patient is alert and oriented 3. Patient does report improvement with shortness of breath. Weight down from 85.9-82.6 kg. Patient remains on Lasix drip per nephrology. Patient still complaining of bilateral knee pain and patient was reevaluated by vascular surgery continue current medical management no plans for surgical intervention. Patient denies chest pain or shortness breath. Patient denies nausea vomiting or diarrhea. Patient denies any urinary burning or frequency On 10/05/2020 patient was seen and examined on the medical floor he is alert and oriented 3 in no apparent distress, he reports improvement in his shortness of breath and his lower extremity edema, kidney function slightly worse, patient denies any fever or chills no headache or dizziness no chest pain no cough no nausea or vomiting no abdominal pain no diarrhea no burning with urination no frequency or urgency and no hematuria. On 10/06/2020 patient was seen and examined on the medical floor he is alert and oriented 3 in no apparent distress, he is feeling more tired and weak today, kidney function again worse today. patient denies any fever or chills no headache or dizziness no chest pain no cough no nausea or vomiting no abdominal pain no diarrhea no burning with urination no frequency or urgency and no hematuria. Nephrology following at this time Lasix drip was discontinued and patient was started on IV Lasix twice a day Will monitor closely On 10/07/2020 patient is alert and oriented 3. Patient is feeling nauseous today. Patient's creatinine increasing to 3.96. Patient was switched from Lasix drip to IV Lasix yesterday. Per nephrology services IV Lasix will be held due to increasing creatinine area and patient denies chest pain or shortness of breath. Patient denies any urinary burning or frequency On 10/08/2020 patient is alert and oriented 3. Patient reports improvement with nausea. Diuretics were stopped for nephrology yesterday. Edema does appear improved to lower extremities. Patient remains with good urine output. Creatinine 3.94 and bun 141. Per nephrology services continue to hold Lasix due to rising bun and creatinine. This time patient denies chest pain or shortness of breath. Patient denies nausea vomiting or diarrhea. Patient denies any urinary burning or frequency On 10/09/2020 Patient was seen and examined on the medical floor, he is alert and oriented x 3 in no distress, he denies any complaints there is no fever or chills no headache or dizziness no chest pain no shortness of breath no palpitation no cough no nausea or vomiting no abdominal pain no diarrhea no blood in the stools no burning with urination no frequency or urgency and no hematuria, patient was told by nephrology that he will need hemodialysis, he had many questions in that regard, significant amount of time was spent answering patient's questions today, he wishes to speak to a web content & social media manager, to see if patient can have any help as outpatient in regard to his transportation to the dialysis center , a consult for web content & social media manager was requested . Objective - Vital Signs Vital signs: Vital Signs Temp 97.8 F 10/09/20 07:45 Pulse 60 10/09/20 07:46 Resp 18 10/09/20 07:45 BP 153/55 10/09/20 07:45 Pulse Ox 98 10/09/20 07:45 Intake & Output 10/08/20 10/09/20 10/09/20 18:59 06:59 18:59 Intake Total 1080 Output Total 200 Balance 880 Weight 84.6 kg Intake: Oral 1080 Output: Urine 200 Other: Voiding Method Urinal Urinal - Exam In general patient is alert and oriented 3 in no distress Head normocephalic and atraumatic Neck supple no JVD no goiter Lungs diminished bilaterally no crackles no wheezing Heart regular rate and rhythm S1-S2, no rub or gallop Abdomen is soft nontender nondistended positive bowel sounds no hepatosplenomegaly Extremities +3 pedal edema noted to right side. Left +1. Bilateral spread is noted to feet. Neuro no gross focal neurological deficit - Labs CBC & Chem 7: 10/10/20 12:05 10/10/20 12:05 Labs: Abnormal Lab Results - Last 24 Hours (Table) 10/08/20 10/09/20 Range/Units 07:25 06:45 RBC 3.60 L (4.30-5.90) m/uL Hgb 10.6 L (13.0-17.5) gm/dL Hct 32.2 L (39.0-53.0) % Lymphocytes # 0.4 L (1.0-4.8) k/uL Sodium 135 L (137-145) mmol/L Chloride 89 L (98-107) mmol/L Carbon Dioxide 35 H (22-30) mmol/L BUN 141 H* (9-20) mg/dL Creatinine 3.94 H (0.66-1.25) mg/dL Glucose 116 H (74-99) mg/dL Magnesium 2.9 H (1.6-2.3) mg/dL Total Protein 6.2 L (6.3-8.2) g/dL Assessment and Plan Assessment: 1. Shortness breath secondary to acute on chronic systolic CHF exacerbation. BNP elevated at 43,000. Patient started on IV Lasix. Cardiomegaly with diffuse bilateral perihilar reticular opacities compatible with interstitial pulmonary disease. 2. Elevated d-dimer. D-dimer 1.46. Venous Doppler ordered to rule out DVT. VQ scan completed showing low probability of PE 3. Elevated troponins. Cardiology services following. Per cardiology note related to ACS 4. Cellulitis to lower extremities. She started on Rocephin. Infectious disease consulted IV antibiotics DC'd 5. Chronic kidney disease stage III. Creatinine 2.5 and bun 69 this does appear on patient's baseline. Nephrology services following. Dobutamine added. Lasix increased. Lasix drips added per nephrology. Patient transitioned to IV Lasix. Lasix held at this time due to increasing creatinine per nephrology 6. 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 History of COPD 8. Paroxysmal atrial fibrillation. Patient started on eliquis per cardiology services 9. Moderate bilateral fem-pop disease. Ultrasound of arteries completed of lower extremity. Patient was evaluated by vascular surgical services recommend ations of floating compression stockings or Chano wrapped bilateral lower extremities. Patient currently refusing. No indications for vascular surgical intervention at this time 10. Hemorrhoids. hydrocortisone suppositories added DVT prophylaxis eliquis. GI prophylaxis Protonix Cardiology, nephrology, infectious disease and vascular surgery following
--- NOTE | 2020-10-10 16:35 | P.PN ---
Subjective Progress Note Date: 10/10/20 Sean Lin is an 80-year-old male patient who presented to the ER with complaints of increasing shortness of breath over the past few months. Patient also reports swelling to lower extremities. Patient has a past medical history of A. fib, heart failure, COPD, GERD, GI bleed, hypertension, thyroid disorder. BNP elevated at 42,400. Mildly elevated troponin 0.071 and 0.098. Patient's creatinine 2.59 and bun 69 this does appear on patient's baseline. Patient also elevated d-dimer 1.46. VQ scan ordered due to chronic kidney disease. At that time cardiology services will be consulted. Patient started on IV Lasix. Upon examination feet found cold to touch bilaterally right greater than left with swelling and erythema tender to touch. Will start patient on Rocephin for cellulitis. Will consult vascular surgery due to concerns of arterial disease. Will order venous Doppler to rule out DVT. This time patient denies chest pain. Patient does complain of shortness of breath. Patient denies nausea vomiting or diarrhea. Patient denies any urinary burning or frequency. On 09/26/2020 patient was seen and examined on the telemetry floor he is alert and oriented 3 in no apparent distress he is complaining of pain in both feet he is also complaining of shortness of breath with any activity, otherwise he denies any complaint. There is no fever or chills no headache or dizziness no chest pain, no palpitation no cough no nausea or vomiting no abdominal pain no diarrhea no blood in the stools no burning with urination no frequency or urgency and no hematuria, there is no weakness or numbness in any of the extremities no change in vision speech or gait. D-dimer was elevated at 1.46, patient underwent VQ scan that was low probability for pulmonary embolism, bilateral lower extremity Doppler is still pending, patient also had elevated troponin levels at 0.071, 0.098, 0.092 cardiology are consulted, echocardiogram done patient remains on IV heparin at this time, PTT is therapeutic at 91.9, patient has known history of chronic kidney disease at this time BUN is 74 creatinine 2.33 he was seen in the past by Dr. Rojas, Will place a consult for nephrology for follow-up. On 09/27/2020 patient is alert and oriented 3 resting comfortably in bed. Patient does report improvement with overall shortness of breath. Patient remains on IV Lasix. He was started on eliquis per cardiology services for proximal atrial fibrillation. Arterial ultrasound of the lower extremity is ordered per vascular surgery. At this time patient denies any chest pain or shortness of breath. Patient denies nausea vomiting or diarrhea. Patient denies any urinary burning or frequency. Cardiology, nephrology, infectious disease and vascular surgery are following On 09/28/2020 Patient was seen and examined on the medical floor, he is alert and oriented x 3 in no distress, he denies any complaints there is no fever or chills no headache or dizziness no chest pain no shortness of breath no palpitation no cough no nausea or vomiting no abdominal pain no diarrhea no blood in the stools no burning with urination no frequency or urgency and no hematuria, there is no weakness or numbness in any of the extremities no change in vision speech or gait. Patient is still complaining of severe swelling and erythema and tenderness in his bilateral feet, otherwise he denies any complaints at this time. On 09/29/2020 patient was seen and examined on the medical floor he is alert and oriented 3 in no distress he is complaining of lower extremity pain and swelling otherwise he denies any complaints at this time there is no fever or chills no headache or dizziness no chest pain no shortness of breath no cough no nausea or vomiting no abdominal pain no diarrhea no blood in the stools no burning with urination no frequency or urgency and no hematuria On 09/30/2020 patient is alert and oriented 3 patient is complaining of lower extremity pain and swelling perfusing Chano wraps. Patient also educated on the importance of elevation while in bed. Creatinine 3.01 and bun 81. Patient was started on dobutamine per nephrology services Lasix increased. At this time patient denies chest pain or shortness of breath. Patient denies nausea vomiting or diarrhea. Patient denies any urinary burning or frequency On 10/01/2020 patient was seen and examined on the medical floor, he is alert and oriented 3 he is complaining of lower extremity pain and swelling perfusing Chano wraps. Patient also educated on the importance of elevation while in bed. Creatinine 3.01 and bun 81. Patient was started on dobutamine per nephrology services Lasix increased. At this time patient denies chest pain or shortness of breath. Patient denies nausea vomiting or diarrhea. Patient denies any urinary burning or frequency. He was evaluated by nephrology and was started on insulin drip, patient had arterial study on the lower extremities he will be reevaluated by vascular surgery. On 10/02/2020 patient is alert and oriented 3. Patient has been started on Lasix drip per nephrology remains on dobutamine drip. Weight down from 87.4 kg to 87 kg. Creatinine 3.26 and bun 91. At this time patient denies chest pain or shortness of breath. Patient denies nausea vomiting or diarrhea. Patient denies any urinary burning or frequency On 10/03/2020 patient is alert and oriented 3. He is still complaining of bilateral lower extremity edema and pain in the dorsal aspects of both feet due to severe edema , otherwise he denies any complaints at this time there is no fever or chills no headache or dizziness no chest pain he has mild shortness of breath with activity no shortness of breath at rest no nausea or vomiting no abdominal pain no diarrhea and no urinary symptoms Patient has been started on Lasix drip per nephrology remains on dobutamine drip. Weight down to 85.9 kg. Creatinine 3.26 and bun 91. At this time patient denies chest pain or shortness of breath. Patient denies nausea vomiting or diarrhea. Patient denies any urinary burning or frequency On 10/04/2020 patient is alert and oriented 3. Patient does report improvement with shortness of breath. Weight down from 85.9-82.6 kg. Patient remains on Lasix drip per nephrology. Patient still complaining of bilateral knee pain and patient was reevaluated by vascular surgery continue current medical management no plans for surgical intervention. Patient denies chest pain or shortness breath. Patient denies nausea vomiting or diarrhea. Patient denies any urinary burning or frequency On 10/05/2020 patient was seen and examined on the medical floor he is alert and oriented 3 in no apparent distress, he reports improvement in his shortness of breath and his lower extremity edema, kidney function slightly worse, patient denies any fever or chills no headache or dizziness no chest pain no cough no nausea or vomiting no abdominal pain no diarrhea no burning with urination no frequency or urgency and no hematuria. On 10/06/2020 patient was seen and examined on the medical floor he is alert and oriented 3 in no apparent distress, he is feeling more tired and weak today, kidney function again worse today. patient denies any fever or chills no headache or dizziness no chest pain no cough no nausea or vomiting no abdominal pain no diarrhea no burning with urination no frequency or urgency and no hematuria. Nephrology following at this time Lasix drip was discontinued and patient was started on IV Lasix twice a day Will monitor closely On 10/07/2020 patient is alert and oriented 3. Patient is feeling nauseous today. Patient's creatinine increasing to 3.96. Patient was switched from Lasix drip to IV Lasix yesterday. Per nephrology services IV Lasix will be held due to increasing creatinine area and patient denies chest pain or shortness of breath. Patient denies any urinary burning or frequency On 10/08/2020 patient is alert and oriented 3. Patient reports improvement with nausea. Diuretics were stopped for nephrology yesterday. Edema does appear improved to lower extremities. Patient remains with good urine output. Creatinine 3.94 and bun 141. Per nephrology services continue to hold Lasix due to rising bun and creatinine. This time patient denies chest pain or shortness of breath. Patient denies nausea vomiting or diarrhea. Patient denies any urinary burning or frequency On 10/09/2020 Patient was seen and examined on the medical floor, he is alert and oriented x 3 in no distress, he denies any complaints there is no fever or chills no headache or dizziness no chest pain no shortness of breath no palpitation no cough no nausea or vomiting no abdominal pain no diarrhea no blood in the stools no burning with urination no frequency or urgency and no hematuria, patient was told by nephrology that he will need hemodialysis, he had many questions in that regard, significant amount of time was spent answering patient's questions today, he wishes to speak to a older adult social work specialist, to see if patient can have any help as outpatient in regard to his transportation to the dialysis center , a consult for older adult social work specialist was requested . On 10/10/2020 Patient was seen and examined on the medical floor, he is alert and oriented x 3 in no distress, he denies any complaints there is no fever or chills no headache or dizziness no chest pain no shortness of breath no palpitation no cough no nausea or vomiting no abdominal pain no diarrhea no blood in the stools no burning with urination no frequency or urgency and no hematuria, patient was started on dialysis today, we will continue to monitor follow-up in a.m. Objective - Vital Signs Vital signs: Vital Signs Temp 97.2 F L 10/10/20 13:29 Pulse 70 10/10/20 13:29 Resp 18 10/10/20 13:29 BP 142/74 10/10/20 13:29 Pulse Ox 98 10/10/20 12:47 Intake & Output 10/09/20 10/10/20 10/10/20 18:59 06:59 18:59 Intake Total 460 440 Output Total 752 177 0287 Balance -140 -300 -1560 Intake: IV 200 Oral 460 240 Output: Urine 600 300 Hemodialysis 2000 Other: Voiding Method Urinal # Bowel Movements 1 - Exam In general patient is alert and oriented 3 in no distress Head normocephalic and atraumatic Neck supple no JVD no goiter Lungs diminished bilaterally no crackles no wheezing Heart regular rate and rhythm S1-S2, no rub or gallop Abdomen is soft nontender nondistended positive bowel sounds no hepatosplenomegaly Extremities +3 pedal edema noted to right side. Left +1. Bilateral spread is noted to feet. Neuro no gross focal neurological deficit - Labs CBC & Chem 7: 10/10/20 12:05 10/10/20 12:05 Labs: Abnormal Lab Results - Last 24 Hours (Table) 10/10/20 10/10/20 Range/Units 12:05 12:05 WBC 2.4 L (3.8-10.6) k/uL RBC 3.34 L (4.30-5.90) m/uL Hgb 9.7 L (13.0-17.5) gm/dL Hct 30.0 L (39.0-53.0) % Sodium 136 L (137-145) mmol/L Potassium 3.3 L (3.5-5.1) mmol/L Chloride 95 L (98-107) mmol/L BUN 119 H* (9-20) mg/dL Creatinine 3.15 H (0.66-1.25) mg/dL Glucose 181 H (74-99) mg/dL Assessment and Plan Assessment: 1. Shortness breath secondary to acute on chronic systolic CHF exacerbation. BNP elevated at 43,000. Patient started on IV Lasix. Cardiomegaly with diffuse bilateral perihilar reticular opacities compatible with interstitial pulmonary disease. 2. Elevated d-dimer. D-dimer 1.46. Venous Doppler ordered to rule out DVT. VQ scan completed showing low probability of PE 3. Elevated troponins. Cardiology services following. Per cardiology note related to ACS 4. Cellulitis to lower extremities. She started on Rocephin. Infectious disease consulted IV antibiotics DC'd 5. Chronic kidney disease stage III. Creatinine 2.5 and bun 69 this does appear on patient's baseline. Nephrology services following. Dobutamine added. Lasix increased. Lasix drips added per nephrology. Patient transitioned to IV Lasix. Lasix held at this time due to increasing creatinine per nephrology 6. 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 History of COPD 8. Paroxysmal atrial fibrillation. Patient started on eliquis per cardiology services 9. Moderate bilateral fem-pop disease. Ultrasound of arteries completed of lower extremity. Patient was evaluated by vascular surgical services recommendations of floating compression stockings or Chano wrapped bilateral lower extremities. Patient currently refusing. No indications for vascular surgical intervention at this time 10. Hemorrhoids. hydrocortisone suppositories added DVT prophylaxis eliquis. GI prophylaxis Protonix Cardiology, nephrology, infectious disease and vascular surgery following
--- NOTE | 2020-10-10 18:03 | PN ---
PROGRESS NOTE DATE OF SERVICE: 10/10/2020 REASON FOR FOLLOWUP: Bilateral foot cellulitis and athlete's foot. INTERVAL HISTORY: The patient is afebrile. Patient is breathing comfortably. The patient denies having any chest pain or any worsening cough. No abdominal pain or any worsening pain in bilateral foot. PHYSICAL EXAMINATION: VITAL SIGNS: Blood pressure 152/64, pulse of 80, temperature 98.3, he is 97% on room air. GENERAL DESCRIPTION: An elderly male up in the bed in no distress. RESPIRATORY SYSTEM: Unlabored breathing, decreased intensity of breath sounds, no wheeze. HEART: S1, S2. Regular rate and rhythm. ABDOMEN: Soft, no tenderness. EXTREMITIES: Bilateral foot swelling, malodor slightly decreased. No drainage. LABS: Hemoglobin is 9.4, white count 2.0, BUN of 119, creatinine 3.15. DIAGNOSTIC IMPRESSION AND PLAN: Patient with significant swelling of lower extremities, especially to the bilateral foot area in this patient who did have an acute on chronic renal failure and fluid overload from CHF. The patient is on oral Keflex to continue along with nystatin for in between the toes. Continue supportive care. MMODL / IJN: [id number] /
[2020-10-10] MEDS: LEVOTHYROXINE 88 MCG TAB PO SCH (21:12)
[2020-10-10] MEDS: FERROUS SULFATE 325 MG TAB PO SCH (21:12)
[2020-10-10] MEDS: DOCUSATE 100 MG CAP PO SCH (21:12)
[2020-10-11] MEDS: HYDROmorphone 0.5 MG/0.5 ML SYRINGE IVP PRN ×5 (02:07→19:59)
[2020-10-11] MEDS: carvediloL 6.25 MG TAB PO SCH ×2 (06:46→17:37)
[2020-10-11] MEDS: PANTOPRAZOLE 40 MG TABLET PO SCH (06:47)
[2020-10-11] MEDS: CEPHALEXIN 250 MG CAP PO SCH ×3 (10:11→23:43)
[2020-10-11] MEDS: APIXABAN 2.5 MG TABLET PO SCH ×2 (10:11→19:58)
[2020-10-11] MEDS: hydrALAZINE HCL 25 MG TAB PO SCH ×3 (10:11→23:43)
[2020-10-11] MEDS: allopurinoL 100 MG TAB PO SCH (10:11)
[2020-10-11] MEDS: NYSTATIN 100,000 UNIT/GM POWD 15 GM TOPICAL SCH ×2 (10:12→19:59)
[2020-10-11] MEDS: HYDROCORTISONE SUPPOSITORY 25 MG SUPP RECTAL SCH ×2 (10:25→19:57)
--- NOTE | 2020-10-11 12:32 | PN ---
PROGRESS NOTE Patient is seen for followup for acute kidney injury started on hemodialysis. The patient had his first treatment yesterday mostly for worsening renal function and persistent volume overload. The patient tolerated his treatment well. We had about 2 L of fluid removed. PHYSICAL EXAMINATION: On examination today, blood pressure was 148/54, heart rate 60 per minute. He is afebrile. Examination of the heart S1, S2. Examination of lungs decreased breath sounds at bases. Abdomen is soft, nontender. Examination of lower extremities shows decreased edema about 2+ edema noted bilaterally. Chronic skin changes lower extremities. LAB: Show sodium 136, potassium 3.3, BUN 119, serum creatinine 3.15, hemoglobin 9.7 g/dL. ASSESSMENT: 1. Acute kidney injury with progressive renal failure, cardiorenal as well as an element of acute tubular necrosis with persistent volume overload started on dialysis. Yesterday patient had his first treatment after IJ PermCath placement. He states he is feeling better. 2. Acute on chronic systolic congestive heart failure. 3. Cardiomyopathy, EF 30 -35% with moderate to severe aortic regurgitation, mitral regurg, mitral stenosis, tricuspid regurg. 4. Severe pulmonary hypertension. 5. 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 Baseline creatinine about 2.5. 6. Volume overload, currently improved post dialysis. I will resume Lasix as well. 7. Hypertension. PLAN: Repeat hemodialysis in a.m. Resume IV Lasix. Continue Aranesp. Monitor labs. The patient will need placement for outpatient dialysis. MMODL / IJN: [id number] /
[2020-10-11] MEDS: DARBEPOETIN ALFA 40 MCG/0.4 ML SYRINGE SQ SCH (12:38)
--- NOTE | 2020-10-11 13:03 | P.PN ---
Subjective Progress Note Date: 10/11/20 Sean Lin is an 80-year-old male patient who presented to the ER with complaints of increasing shortness of breath over the past few months. Patient also reports swelling to lower extremities. Patient has a past medical history of A. fib, heart failure, COPD, GERD, GI bleed, hypertension, thyroid disorder. BNP elevated at 42,400. Mildly elevated troponin 0.071 and 0.098. Patient's creatinine 2.59 and bun 69 this does appear on patient's baseline. Patient also elevated d-dimer 1.46. VQ scan ordered due to chronic kidney disease. At that time cardiology services will be consulted. Patient started on IV Lasix. Upon examination feet found cold to touch bilaterally right greater than left with swelling and erythema tender to touch. Will start patient on Rocephin for cellulitis. Will consult vascular surgery due to concerns of arterial disease. Will order venous Doppler to rule out DVT. This time patient denies chest pain. Patient does complain of shortness of breath. Patient denies nausea vomiting or diarrhea. Patient denies any urinary burning or frequency. On 09/26/2020 patient was seen and examined on the telemetry floor he is alert and oriented 3 in no apparent distress he is complaining of pain in both feet he is also complaining of shortness of breath with any activity, otherwise he denies any complaint. There is no fever or chills no headache or dizziness no chest pain, no palpitation no cough no nausea or vomiting no abdominal pain no diarrhea no blood in the stools no burning with urination no frequency or urgency and no hematuria, there is no weakness or numbness in any of the extremities no change in vision speech or gait. D-dimer was elevated at 1.46, patient underwent VQ scan that was low probability for pulmonary embolism, bilateral lower extremity Doppler is still pending, patient also had elevated troponin levels at 0.071, 0.098, 0.092 cardiology are consulted, echocardiogram done patient remains on IV heparin at this time, PTT is therapeutic at 91.9, patient has known history of chronic kidney disease at this time BUN is 74 creatinine 2.33 he was seen in the past by Dr. Rojas, Will place a consult for nephrology for follow-up. On 09/27/2020 patient is alert and oriented 3 resting comfortably in bed. Patient does report improvement with overall shortness of breath. Patient remains on IV Lasix. He was started on eliquis per cardiology services for proximal atrial fibrillation. Arterial ultrasound of the lower extremity is ordered per vascular surgery. At this time patient denies any chest pain or shortness of breath. Patient denies nausea vomiting or diarrhea. Patient denies any urinary burning or frequency. Cardiology, nephrology, infectious disease and vascular surgery are following On 09/28/2020 Patient was seen and examined on the medical floor, he is alert and oriented x 3 in no distress, he denies any complaints there is no fever or chills no headache or dizziness no chest pain no shortness of breath no palpitation no cough no nausea or vomiting no abdominal pain no diarrhea no blood in the stools no burning with urination no frequency or urgency and no hematuria, there is no weakness or numbness in any of the extremities no change in vision speech or gait. Patient is still complaining of severe swelling and erythema and tenderness in his bilateral feet, otherwise he denies any complaints at this time. On 09/29/2020 patient was seen and examined on the medical floor he is alert and oriented 3 in no distress he is complaining of lower extremity pain and swelling otherwise he denies any complaints at this time there is no fever or chills no headache or dizziness no chest pain no shortness of breath no cough no nausea or vomiting no abdominal pain no diarrhea no blood in the stools no burning with urination no frequency or urgency and no hematuria On 09/30/2020 patient is alert and oriented 3 patient is complaining of lower extremity pain and swelling perfusing Chano wraps. Patient also educated on the importance of elevation while in bed. Creatinine 3.01 and bun 81. Patient was started on dobutamine per nephrology services Lasix increased. At this time patient denies chest pain or shortness of breath. Patient denies nausea vomiting or diarrhea. Patient denies any urinary burning or frequency On 10/01/2020 patient was seen and examined on the medical floor, he is alert and oriented 3 he is complaining of lower extremity pain and swelling perfusing Chano wraps. Patient also educated on the importance of elevation while in bed. Creatinine 3.01 and bun 81. Patient was started on dobutamine per nephrology services Lasix increased. At this time patient denies chest pain or shortness of breath. Patient denies nausea vomiting or diarrhea. Patient denies any urinary burning or frequency. He was evaluated by nephrology and was started on insulin drip, patient had arterial study on the lower extremities he will be reevaluated by vascular surgery. On 10/02/2020 patient is alert and oriented 3. Patient has been started on Lasix drip per nephrology remains on dobutamine drip. Weight down from 87.4 kg to 87 kg. Creatinine 3.26 and bun 91. At this time patient denies chest pain or shortness of breath. Patient denies nausea vomiting or diarrhea. Patient denies any urinary burning or frequency On 10/03/2020 patient is alert and oriented 3. He is still complaining of bilateral lower extremity edema and pain in the dorsal aspects of both feet due to severe edema , otherwise he denies any complaints at this time there is no fever or chills no headache or dizziness no chest pain he has mild shortness of breath with activity no shortness of breath at rest no nausea or vomiting no abdominal pain no diarrhea and no urinary symptoms Patient has been started on Lasix drip per nephrology remains on dobutamine drip. Weight down to 85.9 kg. Creatinine 3.26 and bun 91. At this time patient denies chest pain or shortness of breath. Patient denies nausea vomiting or diarrhea. Patient denies any urinary burning or frequency On 10/04/2020 patient is alert and oriented 3. Patient does report improvement with shortness of breath. Weight down from 85.9-82.6 kg. Patient remains on Lasix drip per nephrology. Patient still complaining of bilateral knee pain and patient was reevaluated by vascular surgery continue current medical management no plans for surgical intervention. Patient denies chest pain or shortness breath. Patient denies nausea vomiting or diarrhea. Patient denies any urinary burning or frequency On 10/05/2020 patient was seen and examined on the medical floor he is alert and oriented 3 in no apparent distress, he reports improvement in his shortness of breath and his lower extremity edema, kidney function slightly worse, patient denies any fever or chills no headache or dizziness no chest pain no cough no nausea or vomiting no abdominal pain no diarrhea no burning with urination no frequency or urgency and no hematuria. On 10/06/2020 patient was seen and examined on the medical floor he is alert and oriented 3 in no apparent distress, he is feeling more tired and weak today, kidney function again worse today. patient denies any fever or chills no headache or dizziness no chest pain no cough no nausea or vomiting no abdominal pain no diarrhea no burning with urination no frequency or urgency and no hematuria. Nephrology following at this time Lasix drip was discontinued and patient was started on IV Lasix twice a day Will monitor closely On 10/07/2020 patient is alert and oriented 3. Patient is feeling nauseous today. Patient's creatinine increasing to 3.96. Patient was switched from Lasix drip to IV Lasix yesterday. Per nephrology services IV Lasix will be held due to increasing creatinine area and patient denies chest pain or shortness of breath. Patient denies any urinary burning or frequency On 10/08/2020 patient is alert and oriented 3. Patient reports improvement with nausea. Diuretics were stopped for nephrology yesterday. Edema does appear improved to lower extremities. Patient remains with good urine output. Creatinine 3.94 and bun 141. Per nephrology services continue to hold Lasix due to rising bun and creatinine. This time patient denies chest pain or shortness of breath. Patient denies nausea vomiting or diarrhea. Patient denies any urinary burning or frequency On 10/09/2020 Patient was seen and examined on the medical floor, he is alert and oriented x 3 in no distress, he denies any complaints there is no fever or chills no headache or dizziness no chest pain no shortness of breath no palpitation no cough no nausea or vomiting no abdominal pain no diarrhea no blood in the stools no burning with urination no frequency or urgency and no hematuria, patient was told by nephrology that he will need hemodialysis, he had many questions in that regard, significant amount of time was spent answering patient's questions today, he wishes to speak to a social work assistant, to see if patient can have any help as outpatient in regard to his transportation to the dialysis center , a consult for social work assistant was requested . On 10/10/2020 Patient was seen and examined on the medical floor, he is alert and oriented x 3 in no distress, he denies any complaints there is no fever or chills no headache or dizziness no chest pain no shortness of breath no palpitation no cough no nausea or vomiting no abdominal pain no diarrhea no blood in the stools no burning with urination no frequency or urgency and no hematuria, patient was started on dialysis today, we will continue to monitor follow-up in a.m. On 10/11/2020 patient was seen and examined on the medical floor he is alert and oriented 3 in no apparent distress, he is complaining of pain in the right neck site of catheter insertion for dialysis otherwise he denies any fever or chills no headache or dizziness no chest pain no cough no nausea or vomiting no abdominal pain no diarrhea no burning with urination no frequency or urgency and no hematuria. Nurse is notifying vascular surgery of patient or complaint of pain at the site of catheter insertion. Objective - Vital Signs Vital signs: Vital Signs Temp 97.7 F 10/11/20 03:44 Pulse 60 10/11/20 03:44 Resp 16 10/11/20 03:44 BP 148/54 10/11/20 03:44 Pulse Ox 99 10/11/20 03:44 Intake & Output 10/10/20 10/11/20 10/11/20 18:59 06:59 18:59 Intake Total 440 Output Total 2000 100 Balance -1560 -100 Weight 80.6 kg Intake: IV 200 Oral 240 Output: Urine 100 Hemodialysis 2000 Other: Voiding Method Urinal - Exam In general patient is alert and oriented 3 in no distress Head normocephalic and atraumatic Neck supple no JVD no goiter Lungs diminished bilaterally no crackles no wheezing Heart regular rate and rhythm S1-S2, no rub or gallop Abdomen is soft nontender nondistended positive bowel sounds no hepatosplenomegaly Extremities +3 pedal edema noted to right side. Left +1. Bilateral spread is noted to feet. Neuro no gross focal neurological deficit - Labs CBC & Chem 7: 10/10/20 12:05 10/10/20 12:05 Labs: Abnormal Lab Results - Last 24 Hours (Table) 10/10/20 10/10/20 Range/Units 12:05 12:05 WBC 2.4 L (3.8-10.6) k/uL RBC 3.34 L (4.30-5.90) m/uL Hgb 9.7 L (13.0-17.5) gm/dL Hct 30.0 L (39.0-53.0) % Sodium 136 L (137-145) mmol/L Potassium 3.3 L (3.5-5.1) mmol/L Chloride 95 L (98-107) mmol/L BUN 119 H* (9-20) mg/dL Creatinine 3.15 H (0.66-1.25) mg/dL Glucose 181 H (74-99) mg/dL Assessment and Plan Assessment: 1. Shortness breath secondary to acute on chronic systolic CHF exacerbation. BNP elevated at 43,000. Patient started on IV Lasix. Cardiomegaly with diffuse bilateral perihilar reticular opacities compatible with interstitial pulmonary disease. 2. Elevated d-dimer. D-dimer 1.46. Venous Doppler ordered to rule out DVT. VQ scan completed showing low probability of PE 3. Elevated troponins. Cardiology services following. Per cardiology note related to ACS 4. Cellulitis to lower extremities. She started on Rocephin. Infectious disease consulted IV antibiotics DC'd 5. Chronic kidney disease stage III. Creatinine 2.5 and bun 69 this does appear on patient's baseline. Nephrology services following. Dobutamine added. Lasix increased. Lasix drips added per nephrology. Patient transitioned to IV Lasix. Lasix held at this time due to increasing creatinine per nephrology 6. 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 History of COPD 8. Paroxysmal atrial fibrillation. Patient started on eliquis per cardiology services 9. Moderate bilateral fem-pop disease. Ultrasound of arteries completed of lower extremity. Patient was evaluated by vascular surgical services recommendations of floating compression stockings or Chano wrapped bilateral lower extremities. Patient currently refusing. No indications for vascular surgical intervention at this time 10. Hemorrhoids. hydrocortisone suppositories added DVT prophylaxis eliquis. GI prophylaxis Protonix Cardiology, nephrology, infectious disease and vascular surgery following
--- NOTE | 2020-10-11 13:14 | XR ---
EXAMINATION TYPE: XR chest 1V portable DATE OF EXAM: 10/11/2020 COMPARISON: Chest x-ray 10/10/2020 HISTORY: Abnormal chest x-ray, dialysis catheter placement TECHNIQUE: Single frontal view of the chest is obtained. FINDINGS: There is no significant interval change. IMPRESSION: Stable cardiomegaly, stable dialysis catheter placement with the distal tip near the cav oatrial junction level.
[2020-10-11] MEDS ORDERED: POTASSIUM CHLORIDE ER 20 MEQ TAB.ER PO STA (13:28)
[2020-10-11] MEDS: DOCUSATE 100 MG CAP PO SCH (19:55)
[2020-10-11] MEDS: FERROUS SULFATE 325 MG TAB PO SCH (19:58)
[2020-10-11] MEDS: FUROSEMIDE 10 MG/ML 10 ML VIAL IV SCH (19:58)
[2020-10-11] MEDS: LEVOTHYROXINE 88 MCG TAB PO SCH (19:59)
--- NOTE | 2020-10-11 19:59 | PN ---
PROGRESS NOTE DATE OF SERVICE: 10/11/2020 REASON FOR FOLLOW UP: Bilateral foot cellulitis and athlete's foot. INTERVAL HISTORY: The patient is currently afebrile. The patient complaining of his right IJ dialysis catheter. The patient denies any chest pain or any worsening cough. No abdominal pain. No pain to the bilateral foot area. PHYSICAL EXAMINATION: VITAL SIGNS: Blood pressure 142/63 with a pulse of 60, temperature 97.7, he is 97% on room air. GENERAL DESCRIPTION: An elderly male lying in bed in no distress. RESPIRATORY SYSTEM: Unlabored breathing, clear to auscultation anteriorly. HEART: S1, S2. Regular rate and rhythm. ABDOMEN: Soft, no tenderness. EXTREMITIES: Bilateral feet with swelling present. Redness slightly decreased. LABS: BUN of 119, creatinine 3.15, white count 2.4. DIAGNOSTIC IMPRESSION AND PLAN: 1. Patient with bilateral foot swelling from his underlying cardiorenal disease, concern for possible cellulitis. The patient is on oral Keflex to continue. 2. Athlete's foot. Continue nystatin powder. MMODL / IJN: [id number] /
[2020-10-12] MEDS: HYDROmorphone 0.5 MG/0.5 ML SYRINGE IVP PRN ×5 (04:36→20:58)
[2020-10-12] MEDS: PANTOPRAZOLE 40 MG TABLET PO SCH (06:41)
[2020-10-12] MEDS: carvediloL 6.25 MG TAB PO SCH ×2 (06:41→20:56)
[2020-10-12] MEDS: CEPHALEXIN 250 MG CAP PO SCH ×3 (08:44→20:57)
[2020-10-12] MEDS: allopurinoL 100 MG TAB PO SCH (08:44)
[2020-10-12] MEDS: APIXABAN 2.5 MG TABLET PO SCH ×2 (08:44→20:57)
[2020-10-12] MEDS: FUROSEMIDE 10 MG/ML 10 ML VIAL IV SCH ×2 (08:44→20:56)
[2020-10-12] MEDS: hydrALAZINE HCL 25 MG TAB PO SCH ×3 (08:45→20:57)
[2020-10-12] MEDS: NYSTATIN 100,000 UNIT/GM POWD 15 GM TOPICAL SCH ×2 (08:45→20:57)
[2020-10-12 09:21] LABS: Basophils % (A) 0 %; Eosinophils # (A) 0.2 k/uL (0-0.7); Eosinophils % (A) 2 %; HCT 30.8 % (39.0-53.0); HGB 9.7 gm/dL (13.0-17.5); Lymphocytes # (A) 0.4 k/uL (1.0-4.8); Lymphocytes % (A) 5 %; MCH 28.5 pg (25.0-35.0); MCHC 31.6 g/dL (31.0-37.0); Mean Platelet Volume 8.5; Monocytes # (A) 0.8 k/uL (0-1.0); Monocytes % (A) 9 %; Neutrophils # (A) 6.7 k/uL (1.3-7.7); Neutrophils % (A) 81 %; Platelet Count 259 k/uL (150-450); RBC 3.42 m/uL (4.30-5.90); RDW 14.8 % (11.5-15.5); WBC 8.3 k/uL (3.8-10.6)
[2020-10-12 09:31] LABS: Albumin 3.6 g/dL (3.5-5.0); Calcium 8.8 mg/dL (8.4-10.2); Potassium 4.2 mmol/L (3.5-5.1); Total Bilirubin 0.4 mg/dL (0.2-1.3); Total Protein 6.2 g/dL (6.3-8.2)
[2020-10-12] MEDS: HYDROCORTISONE SUPPOSITORY 25 MG SUPP RECTAL SCH ×2 (10:32→20:57)
--- NOTE | 2020-10-12 12:55 | PN ---
PROGRESS NOTE Patient is seen for followup for acute kidney injury on top of chronic kidney disease with progressive renal failure and volume overload, started on dialysis. The patient is scheduled for treatment today. This will be his second treatment. He is currently comfortable. He is still complaining of soreness at the site of the catheter. PHYSICAL EXAMINATION: On examination today, blood pressure 149/60, heart rate 98 per minute, he is afebrile. Examination of the heart S1, S2. Examination of the lungs, decreased breath sounds at bases. Abdomen is soft, nontender. Examination of lower extremities shows edema 2 to 3+ bilaterally. Chronic skin changes bilaterally. LAB: Show sodium 134, potassium 4.2, BUN 113, serum creatinine 3.36, hemoglobin of 9.7 g/dL. ASSESSMENT: 1. Chronic kidney disease with progressive renal failure with persistent volume overload, started on dialysis. The patient also had mild symptoms of uremia. Patient will have a second treatment today. 2. Acute on chronic systolic congestive heart failure. 3. Cardiomyopathy, ejection fraction 30-35% with moderate to severe aortic regurgitation, mitral regurgitation, mitral stenosis, tricuspid regurgitation. 4. Severe pulmonary hypertension. 5. 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 6. Hypertension. PLAN: Continue with IV Lasix. We will plan on hemodialysis today. Continue with Aranesp. Outpatient placement for chair time for dialysis to be arranged by discharge planning. PARESH / YOKO: [id number] /
--- NOTE | 2020-10-12 16:37 | P.PN ---
Subjective Progress Note Date: 10/12/20 Sean Lin is an 80-year-old male patient who presented to the ER with complaints of increasing shortness of breath over the past few months. Patient also reports swelling to lower extremities. Patient has a past medical history of A. fib, heart failure, COPD, GERD, GI bleed, hypertension, thyroid disorder. BNP elevated at 42,400. Mildly elevated troponin 0.071 and 0.098. Patient's creatinine 2.59 and bun 69 this does appear on patient's baseline. Patient also elevated d-dimer 1.46. VQ scan ordered due to chronic kidney disease. At that time cardiology services will be consulted. Patient started on IV Lasix. Upon examination feet found cold to touch bilaterally right greater than left with swelling and erythema tender to touch. Will start patient on Rocephin for cellulitis. Will consult vascular surgery due to concerns of arterial disease. Will order venous Doppler to rule out DVT. This time patient denies chest pain. Patient does complain of shortness of breath. Patient denies nausea vomiting or diarrhea. Patient denies any urinary burning or frequency. On 09/26/2020 patient was seen and examined on the telemetry floor he is alert and oriented 3 in no apparent distress he is complaining of pain in both feet he is also complaining of shortness of breath with any activity, otherwise he denies any complaint. There is no fever or chills no headache or dizziness no chest pain, no palpitation no cough no nausea or vomiting no abdominal pain no diarrhea no blood in the stools no burning with urination no frequency or urgency and no hematuria, there is no weakness or numbness in any of the extremities no change in vision speech or gait. D-dimer was elevated at 1.46, patient underwent VQ scan that was low probability for pulmonary embolism, bilateral lower extremity Doppler is still pending, patient also had elevated troponin levels at 0.071, 0.098, 0.092 cardiology are consulted, echocardiogram done patient remains on IV heparin at this time, PTT is therapeutic at 91.9, patient has known history of chronic kidney disease at this time BUN is 74 creatinine 2.33 he was seen in the past by Dr. Rojas, Will place a consult for nephrology for follow-up. On 09/27/2020 patient is alert and oriented 3 resting comfortably in bed. Patient does report improvement with overall shortness of breath. Patient remains on IV Lasix. He was started on eliquis per cardiology services for proximal atrial fibrillation. Arterial ultrasound of the lower extremity is ordered per vascular surgery. At this time patient denies any chest pain or shortness of breath. Patient denies nausea vomiting or diarrhea. Patient denies any urinary burning or frequency. Cardiology, nephrology, infectious disease and vascular surgery are following On 09/28/2020 Patient was seen and examined on the medical floor, he is alert and oriented x 3 in no distress, he denies any complaints there is no fever or chills no headache or dizziness no chest pain no shortness of breath no palpitation no cough no nausea or vomiting no abdominal pain no diarrhea no blood in the stools no burning with urination no frequency or urgency and no hematuria, there is no weakness or numbness in any of the extremities no change in vision speech or gait. Patient is still complaining of severe swelling and erythema and tenderness in his bilateral feet, otherwise he denies any complaints at this time. On 09/29/2020 patient was seen and examined on the medical floor he is alert and oriented 3 in no distress he is complaining of lower extremity pain and swelling otherwise he denies any complaints at this time there is no fever or chills no headache or dizziness no chest pain no shortness of breath no cough no nausea or vomiting no abdominal pain no diarrhea no blood in the stools no burning with urination no frequency or urgency and no hematuria On 09/30/2020 patient is alert and oriented 3 patient is complaining of lower extremity pain and swelling perfusing Chano wraps. Patient also educated on the importance of elevation while in bed. Creatinine 3.01 and bun 81. Patient was started on dobutamine per nephrology services Lasix increased. At this time patient denies chest pain or shortness of breath. Patient denies nausea vomiting or diarrhea. Patient denies any urinary burning or frequency On 10/01/2020 patient was seen and examined on the medical floor, he is alert and oriented 3 he is complaining of lower extremity pain and swelling perfusing Chano wraps. Patient also educated on the importance of elevation while in bed. Creatinine 3.01 and bun 81. Patient was started on dobutamine per nephrology services Lasix increased. At this time patient denies chest pain or shortness of breath. Patient denies nausea vomiting or diarrhea. Patient denies any urinary burning or frequency. He was evaluated by nephrology and was started on insulin drip, patient had arterial study on the lower extremities he will be reevaluated by vascular surgery. On 10/02/2020 patient is alert and oriented 3. Patient has been started on Lasix drip per nephrology remains on dobutamine drip. Weight down from 87.4 kg to 87 kg. Creatinine 3.26 and bun 91. At this time patient denies chest pain or shortness of breath. Patient denies nausea vomiting or diarrhea. Patient denies any urinary burning or frequency On 10/03/2020 patient is alert and oriented 3. He is still complaining of bilateral lower extremity edema and pain in the dorsal aspects of both feet due to severe edema , otherwise he denies any complaints at this time there is no fever or chills no headache or dizziness no chest pain he has mild shortness of breath with activity no shortness of breath at rest no nausea or vomiting no abdominal pain no diarrhea and no urinary symptoms Patient has been started on Lasix drip per nephrology remains on dobutamine drip. Weight down to 85.9 kg. Creatinine 3.26 and bun 91. At this time patient denies chest pain or shortness of breath. Patient denies nausea vomiting or diarrhea. Patient denies any urinary burning or frequency On 10/04/2020 patient is alert and oriented 3. Patient does report improvement with shortness of breath. Weight down from 85.9-82.6 kg. Patient remains on Lasix drip per nephrology. Patient still complaining of bilateral knee pain and patient was reevaluated by vascular surgery continue current medical management no plans for surgical intervention. Patient denies chest pain or shortness breath. Patient denies nausea vomiting or diarrhea. Patient denies any urinary burning or frequency On 10/05/2020 patient was seen and examined on the medical floor he is alert and oriented 3 in no apparent distress, he reports improvement in his shortness of breath and his lower extremity edema, kidney function slightly worse, patient denies any fever or chills no headache or dizziness no chest pain no cough no nausea or vomiting no abdominal pain no diarrhea no burning with urination no frequency or urgency and no hematuria. On 10/06/2020 patient was seen and examined on the medical floor he is alert and oriented 3 in no apparent distress, he is feeling more tired and weak today, kidney function again worse today. patient denies any fever or chills no headache or dizziness no chest pain no cough no nausea or vomiting no abdominal pain no diarrhea no burning with urination no frequency or urgency and no hematuria. Nephrology following at this time Lasix drip was discontinued and patient was started on IV Lasix twice a day Will monitor closely On 10/07/2020 patient is alert and oriented 3. Patient is feeling nauseous today. Patient's creatinine increasing to 3.96. Patient was switched from Lasix drip to IV Lasix yesterday. Per nephrology services IV Lasix will be held due to increasing creatinine area and patient denies chest pain or shortness of breath. Patient denies any urinary burning or frequency On 10/08/2020 patient is alert and oriented 3. Patient reports improvement with nausea. Diuretics were stopped for nephrology yesterday. Edema does appear improved to lower extremities. Patient remains with good urine output. Creatinine 3.94 and bun 141. Per nephrology services continue to hold Lasix due to rising bun and creatinine. This time patient denies chest pain or shortness of breath. Patient denies nausea vomiting or diarrhea. Patient denies any urinary burning or frequency On 10/09/2020 Patient was seen and examined on the medical floor, he is alert and oriented x 3 in no distress, he denies any complaints there is no fever or chills no headache or dizziness no chest pain no shortness of breath no palpitation no cough no nausea or vomiting no abdominal pain no diarrhea no blood in the stools no burning with urination no frequency or urgency and no hematuria, patient was told by nephrology that he will need hemodialysis, he had many questions in that regard, significant amount of time was spent answering patient's questions today, he wishes to speak to a social media coordinator, to see if patient can have any help as outpatient in regard to his transportation to the dialysis center , a consult for social media coordinator was requested . On 10/10/2020 Patient was seen and examined on the medical floor, he is alert and oriented x 3 in no distress, he denies any complaints there is no fever or chills no headache or dizziness no chest pain no shortness of breath no palpitation no cough no nausea or vomiting no abdominal pain no diarrhea no blood in the stools no burning with urination no frequency or urgency and no hematuria, patient was started on dialysis today, we will continue to monitor follow-up in a.m. On 10/11/2020 patient was seen and examined on the medical floor he is alert and oriented 3 in no apparent distress, he is complaining of pain in the right neck site of catheter insertion for dialysis otherwise he denies any fever or chills no headache or dizziness no chest pain no cough no nausea or vomiting no abdominal pain no diarrhea no burning with urination no frequency or urgency and no hematuria. Nurse is notifying vascular surgery of patient or complaint of pain at the site of catheter insertion. On 10/12/2020 Patient was seen and examined on the medical floor, he is alert and oriented x 3 in no distress, he denies any complaints there is no fever or chills no headache or dizziness no chest pain no shortness of breath no palpitation no cough no nausea or vomiting no abdominal pain no diarrhea no blood in the stools no burning with urination no frequency or urgency and no hematuria, at this time will continue with current management will try to increase activity with physical therapy and occupational therapy will assess tomorrow if patient is ready to go home or if he needs to go to a long term for rehabilitation first. Objective - Vital Signs Vital signs: Vital Signs Temp 98.2 F 10/12/20 16:00 Pulse 60 10/12/20 16:00 Resp 18 10/12/20 16:00 BP 158/58 10/12/20 16:00 Pulse Ox 97 10/12/20 16:00 Intake & Output 10/11/20 10/12/20 10/12/20 18:59 06:59 18:59 Intake Total 1360 480 Output Total 650 Balance 1360 -170 Weight 82.1 kg Intake: Oral 1360 480 Output: Urine 650 Other: Voiding Method Urinal Urinal Urinal # Voids 2 - Exam In general patient is alert and oriented 3 in no distress Head normocephalic and atraumatic Neck supple no JVD no goiter Lungs diminished bilaterally no crackles no wheezing Heart regular rate and rhythm S1-S2, no rub or gallop Abdomen is soft nontender nondistended positive bowel sounds no hepatosplenomegaly Extremities +3 pedal edema noted to right side. Left +1. Bilateral spread is noted to feet. Neuro no gross focal neurological deficit - Labs CBC & Chem 7: 10/12/20 08:54 10/12/20 08:54 Labs: Abnormal Lab Results - Last 24 Hours (Table) 10/12/20 10/12/20 Range/Units 08:54 08:54 RBC 3.42 L (4.30-5.90) m/uL Hgb 9.7 L (13.0-17.5) gm/dL Hct 30.8 L (39.0-53.0) % Lymphocytes # 0.4 L (1.0-4.8) k/uL Sodium 134 L (137-145) mmol/L BUN 113 H* (9-20) mg/dL Creatinine 3.36 H (0.66-1.25) mg/dL Glucose 143 H (74-99) mg/dL Total Protein 6.2 L (6.3-8.2) g/dL Assessment and Plan Assessment: 1. Shortness breath secondary to acute on chronic systolic CHF exacerbation. BNP elevated at 43,000. Patient started on IV Lasix. Cardiomegaly with diffuse bilateral perihilar reticular opacities compatible with interstitial pulmonary disease. 2. Elevated d-dimer. D-dimer 1.46. Venous Doppler ordered to rule out DVT. VQ scan completed showing low probability of PE 3. Elevated troponins. Cardiology services following. Per cardiology note related to ACS 4. Cellulitis to lower extremities. She started on Rocephin. Infectious disease consulted IV antibiotics DC'd 5. Chronic kidney disease stage III. Creatinine 2.5 and bun 69 this does appear on patient's baseline. Nephrology services following. Dobutamine added. Lasix increased. Lasix drips added per nephrology. Patient transitioned to IV Lasix. Lasix held at this time due to increasing creatinine per nephrology 6. 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 History of COPD 8. Paroxysmal atrial fibrillation. Patient started on eliquis per cardiology services 9. Moderate bilateral fem-pop disease. Ultrasound of arteries completed of lower extremity. Patient was evaluated by vascular surgical services recommendations of floating compression stockings or Chano wrapped bilateral lower extremities. Patient currently refusing. No indications for vascular surgical intervention at this time 10. Hemorrhoids. hydrocortisone suppositories added DVT prophylaxis eliquis. GI prophylaxis Protonix Cardiology, nephrology, infectious disease and vascular surgery following
[2020-10-12] MEDS: FERROUS SULFATE 325 MG TAB PO SCH (20:56)
[2020-10-12] MEDS: LEVOTHYROXINE 88 MCG TAB PO SCH (20:56)
[2020-10-12] MEDS: DOCUSATE 100 MG CAP PO SCH (20:56)
--- NOTE | 2020-10-13 06:21 | PN ---
PROGRESS NOTE DATE OF SERVICE: 10/12/2020 REASON FOR FOLLOWUP: Bilateral foot cellulitis and athlete's foot. INTERVAL HISTORY: The patient is afebrile. The patient is breathing comfortably. Denies any chest pain or cough. No abdominal pain or any worsening . PHYSICAL EXAMINATION: VITAL SIGNS: Blood pressure is 158/58 with a pulse of 60, temperature 99.2. He is 97% on room air. GENERAL DESCRIPTION: An elderly male up in the bed in no distress. RESPIRATORY SYSTEM: Unlabored breathing, decreased breath sounds at the bases, no wheeze. HEART: S1, S2. Regular rate and rhythm. ABDOMEN: Soft, no tenderness. EXTREMITIES: Bilateral feet have swelling. No significant redness or drainage. LABS: Hemoglobin is 9.7, white count 8.3, BUN of 113, creatinine is 3.36. DIAGNOSTIC IMPRESSION AND PLAN: 1. Patient with bilateral foot cellulitis. The patient did have evidence of significant fluid overload from his cardiac condition. On oral Keflex. 2. Athlete's foot. Continue with nystatin powder. Continue supportive care. MMODL / IJN: [id number] /
[2020-10-13] MEDS: carvediloL 6.25 MG TAB PO SCH ×2 (06:40→17:19)
[2020-10-13] MEDS: PANTOPRAZOLE 40 MG TABLET PO SCH (06:40)
[2020-10-13] MEDS: HYDROmorphone 0.5 MG/0.5 ML SYRINGE IVP PRN ×3 (06:40→17:19)
[2020-10-13 08:36] LABS: Basophils % (A) 0 %; Eosinophils # (A) 0.2 k/uL (0-0.7); Eosinophils % (A) 2 %; HCT 32.7 % (39.0-53.0); HGB 10.5 gm/dL (13.0-17.5); Lymphocytes # (A) 0.5 k/uL (1.0-4.8); Lymphocytes % (A) 5 %; MCH 28.8 pg (25.0-35.0); MCHC 32.2 g/dL (31.0-37.0); MCV 89.4 fL (80.0-100.0); Monocytes # (A) 0.9 k/uL (0-1.0); Monocytes % (A) 10 %; Neutrophils # (A) 7.6 k/uL (1.3-7.7); Neutrophils % (A) 81 %; Platelet Count 311 k/uL (150-450); RBC 3.66 m/uL (4.30-5.90); RDW 14.7 % (11.5-15.5); WBC 9.4 k/uL (3.8-10.6)
[2020-10-13 08:42] LABS: Calcium 9.2 mg/dL (8.4-10.2); Potassium 4.8 mmol/L (3.5-5.1); Total Bilirubin 0.5 mg/dL (0.2-1.3); Total Protein 6.6 g/dL (6.3-8.2)
[2020-10-13] MEDS: CEPHALEXIN 250 MG CAP PO SCH ×3 (09:42→20:34)
[2020-10-13] MEDS: APIXABAN 2.5 MG TABLET PO SCH ×2 (09:42→20:34)
[2020-10-13] MEDS: hydrALAZINE HCL 25 MG TAB PO SCH ×3 (09:42→20:34)
[2020-10-13] MEDS: allopurinoL 100 MG TAB PO SCH (09:42)
[2020-10-13] MEDS: FUROSEMIDE 10 MG/ML 10 ML VIAL IV SCH ×2 (09:42→20:34)
[2020-10-13] MEDS: HYDROCORTISONE SUPPOSITORY 25 MG SUPP RECTAL SCH ×2 (09:44→20:33)
[2020-10-13] MEDS: NYSTATIN 100,000 UNIT/GM POWD 15 GM TOPICAL SCH ×2 (09:45→20:35)
--- NOTE | 2020-10-13 13:06 | PN ---
PROGRESS NOTE Patient is seen for followup for progressive renal failure with acute on top of chronic kidney injury. Eventually started on dialysis. Patient has had 2 treatments of dialysis. He is scheduled for his third treatment today mostly for fluid overload, worsening renal function and subtle uremia. PHYSICAL EXAMINATION: On examination today, blood pressure was 123/74, heart rate 61 per minute. He is afebrile. Examination of the heart S1, S2. Examination of the lungs, bilateral breath sounds are heard. Decreased breath sounds at bases. Basal crackles are heard. Abdomen is soft, nontender. Examination of lower extremities shows edema 2+ bilaterally with chronic skin changes bilateral lower extremities. Some edema noted in the legs as well. [employer] exam grossly intact. LAB: Show sodium 134, potassium 4.8, chloride 97, BUN 80, creatinine 2.76, hemoglobin 10.5 g/dL. ASSESSMENT: 1. Acute kidney injury, progressive renal failure mostly cardiorenal currently started on dialysis for subtle uremia, progressive renal failure and hyperkalemia. The patient will be maintained on outpatient dialysis. 2. Hypokalemia, status post replacement. 3. Volume overload slowly improving. 4. Chronic kidney disease stage 4 with previous creatinine about 2.5 mg/dL secondary to nephrosclerosis. 5. Severe pulmonary hypertension. 6. Cardiomyopathy, ejection fraction 30-35 percent, moderate to severe aortic regurgitation, mitral regurg, mitral stenosis, tricuspid regurgitation, hypertension. PLAN: Repeat hemodialysis today. Goal UF 2 to 2.5 L as tolerated and arrange for outpatient hemodialysis treatments. MMODL / IJN: [id number] /
--- NOTE | 2020-10-13 16:26 | IR ---
Fluoroscopy HISTORY: Renal failure 2.5 minutes fluoroscopy time supplied to the referring clinician. 362 intraoperative C-arm images do cument the procedure. See dictated report from vascular surgery.
--- NOTE | 2020-10-13 18:57 | P.PN ---
Subjective Progress Note Date: 10/13/20 Sean Lin is an 80-year-old male patient who presented to the ER with complaints of increasing shortness of breath over the past few months. Patient also reports swelling to lower extremities. Patient has a past medical history of A. fib, heart failure, COPD, GERD, GI bleed, hypertension, thyroid disorder. BNP elevated at 42,400. Mildly elevated troponin 0.071 and 0.098. Patient's creatinine 2.59 and bun 69 this does appear on patient's baseline. Patient also elevated d-dimer 1.46. VQ scan ordered due to chronic kidney disease. At that time cardiology services will be consulted. Patient started on IV Lasix. Upon examination feet found cold to touch bilaterally right greater than left with swelling and erythema tender to touch. Will start patient on Rocephin for cellulitis. Will consult vascular surgery due to concerns of arterial disease. Will order venous Doppler to rule out DVT. This time patient denies chest pain. Patient does complain of shortness of breath. Patient denies nausea vomiting or diarrhea. Patient denies any urinary burning or frequency. On 09/26/2020 patient was seen and examined on the telemetry floor he is alert and oriented 3 in no apparent distress he is complaining of pain in both feet he is also complaining of shortness of breath with any activity, otherwise he denies any complaint. There is no fever or chills no headache or dizziness no chest pain, no palpitation no cough no nausea or vomiting no abdominal pain no diarrhea no blood in the stools no burning with urination no frequency or urgency and no hematuria, there is no weakness or numbness in any of the extremities no change in vision speech or gait. D-dimer was elevated at 1.46, patient underwent VQ scan that was low probability for pulmonary embolism, bilateral lower extremity Doppler is still pending, patient also had elevated troponin levels at 0.071, 0.098, 0.092 cardiology are consulted, echocardiogram done patient remains on IV heparin at this time, PTT is therapeutic at 91.9, patient has known history of chronic kidney disease at this time BUN is 74 creatinine 2.33 he was seen in the past by Dr. Rojas, Will place a consult for nephrology for follow-up. On 09/27/2020 patient is alert and oriented 3 resting comfortably in bed. Patient does report improvement with overall shortness of breath. Patient remains on IV Lasix. He was started on eliquis per cardiology services for proximal atrial fibrillation. Arterial ultrasound of the lower extremity is ordered per vascular surgery. At this time patient denies any chest pain or shortness of breath. Patient denies nausea vomiting or diarrhea. Patient denies any urinary burning or frequency. Cardiology, nephrology, infectious disease and vascular surgery are following On 09/28/2020 Patient was seen and examined on the medical floor, he is alert and oriented x 3 in no distress, he denies any complaints there is no fever or chills no headache or dizziness no chest pain no shortness of breath no palpitation no cough no nausea or vomiting no abdominal pain no diarrhea no blood in the stools no burning with urination no frequency or urgency and no hematuria, there is no weakness or numbness in any of the extremities no change in vision speech or gait. Patient is still complaining of severe swelling and erythema and tenderness in his bilateral feet, otherwise he denies any complaints at this time. On 09/29/2020 patient was seen and examined on the medical floor he is alert and oriented 3 in no distress he is complaining of lower extremity pain and swelling otherwise he denies any complaints at this time there is no fever or chills no headache or dizziness no chest pain no shortness of breath no cough no nausea or vomiting no abdominal pain no diarrhea no blood in the stools no burning with urination no frequency or urgency and no hematuria On 09/30/2020 patient is alert and oriented 3 patient is complaining of lower extremity pain and swelling perfusing Chano wraps. Patient also educated on the importance of elevation while in bed. Creatinine 3.01 and bun 81. Patient was started on dobutamine per nephrology services Lasix increased. At this time patient denies chest pain or shortness of breath. Patient denies nausea vomiting or diarrhea. Patient denies any urinary burning or frequency On 10/01/2020 patient was seen and examined on the medical floor, he is alert and oriented 3 he is complaining of lower extremity pain and swelling perfusing Chano wraps. Patient also educated on the importance of elevation while in bed. Creatinine 3.01 and bun 81. Patient was started on dobutamine per nephrology services Lasix increased. At this time patient denies chest pain or shortness of breath. Patient denies nausea vomiting or diarrhea. Patient denies any urinary burning or frequency. He was evaluated by nephrology and was started on insulin drip, patient had arterial study on the lower extremities he will be reevaluated by vascular surgery. On 10/02/2020 patient is alert and oriented 3. Patient has been started on Lasix drip per nephrology remains on dobutamine drip. Weight down from 87.4 kg to 87 kg. Creatinine 3.26 and bun 91. At this time patient denies chest pain or shortness of breath. Patient denies nausea vomiting or diarrhea. Patient denies any urinary burning or frequency On 10/03/2020 patient is alert and oriented 3. He is still complaining of bilateral lower extremity edema and pain in the dorsal aspects of both feet due to severe edema , otherwise he denies any complaints at this time there is no fever or chills no headache or dizziness no chest pain he has mild shortness of breath with activity no shortness of breath at rest no nausea or vomiting no abdominal pain no diarrhea and no urinary symptoms Patient has been started on Lasix drip per nephrology remains on dobutamine drip. Weight down to 85.9 kg. Creatinine 3.26 and bun 91. At this time patient denies chest pain or shortness of breath. Patient denies nausea vomiting or diarrhea. Patient denies any urinary burning or frequency On 10/04/2020 patient is alert and oriented 3. Patient does report improvement with shortness of breath. Weight down from 85.9-82.6 kg. Patient remains on Lasix drip per nephrology. Patient still complaining of bilateral knee pain and patient was reevaluated by vascular surgery continue current medical management no plans for surgical intervention. Patient denies chest pain or shortness breath. Patient denies nausea vomiting or diarrhea. Patient denies any urinary burning or frequency On 10/05/2020 patient was seen and examined on the medical floor he is alert and oriented 3 in no apparent distress, he reports improvement in his shortness of breath and his lower extremity edema, kidney function slightly worse, patient denies any fever or chills no headache or dizziness no chest pain no cough no nausea or vomiting no abdominal pain no diarrhea no burning with urination no frequency or urgency and no hematuria. On 10/06/2020 patient was seen and examined on the medical floor he is alert and oriented 3 in no apparent distress, he is feeling more tired and weak today, kidney function again worse today. patient denies any fever or chills no headache or dizziness no chest pain no cough no nausea or vomiting no abdominal pain no diarrhea no burning with urination no frequency or urgency and no hematuria. Nephrology following at this time Lasix drip was discontinued and patient was started on IV Lasix twice a day Will monitor closely On 10/07/2020 patient is alert and oriented 3. Patient is feeling nauseous today. Patient's creatinine increasing to 3.96. Patient was switched from Lasix drip to IV Lasix yesterday. Per nephrology services IV Lasix will be held due to increasing creatinine area and patient denies chest pain or shortness of breath. Patient denies any urinary burning or frequency On 10/08/2020 patient is alert and oriented 3. Patient reports improvement with nausea. Diuretics were stopped for nephrology yesterday. Edema does appear improved to lower extremities. Patient remains with good urine output. Creatinine 3.94 and bun 141. Per nephrology services continue to hold Lasix due to rising bun and creatinine. This time patient denies chest pain or shortness of breath. Patient denies nausea vomiting or diarrhea. Patient denies any urinary burning or frequency On 10/09/2020 Patient was seen and examined on the medical floor, he is alert and oriented x 3 in no distress, he denies any complaints there is no fever or chills no headache or dizziness no chest pain no shortness of breath no palpitation no cough no nausea or vomiting no abdominal pain no diarrhea no blood in the stools no burning with urination no frequency or urgency and no hematuria, patient was told by nephrology that he will need hemodialysis, he had many questions in that regard, significant amount of time was spent answering patient's questions today, he wishes to speak to a clinical social worker, to see if patient can have any help as outpatient in regard to his transportation to the dialysis center , a consult for clinical social worker was requested . On 10/10/2020 Patient was seen and examined on the medical floor, he is alert and oriented x 3 in no distress, he denies any complaints there is no fever or chills no headache or dizziness no chest pain no shortness of breath no palpitation no cough no nausea or vomiting no abdominal pain no diarrhea no blood in the stools no burning with urination no frequency or urgency and no hematuria, patient was started on dialysis today, we will continue to monitor follow-up in a.m. On 10/11/2020 patient was seen and examined on the medical floor he is alert and oriented 3 in no apparent distress, he is complaining of pain in the right neck site of catheter insertion for dialysis otherwise he denies any fever or chills no headache or dizziness no chest pain no cough no nausea or vomiting no abdominal pain no diarrhea no burning with urination no frequency or urgency and no hematuria. Nurse is notifying vascular surgery of patient or complaint of pain at the site of catheter insertion. On 10/12/2020 Patient was seen and examined on the medical floor, he is alert and oriented x 3 in no distress, he denies any complaints there is no fever or chills no headache or dizziness no chest pain no shortness of breath no palpitation no cough no nausea or vomiting no abdominal pain no diarrhea no blood in the stools no burning with urination no frequency or urgency and no hematuria, at this time will continue with current management will try to increase activity with physical therapy and occupational therapy will assess tomorrow if patient is ready to go home or if he needs to go to a [facility] for rehabilitation first. On 10/13/2020 patient was seen and examined on the medical floor he is alert and oriented 3 in no apparent distress he is having dialysis at this time, there is no fever or chills no headache or dizziness no chest pain no shortness of breath no cough no nausea or vomiting no abdominal pain no diarrhea no blood in the stools no burning with urination no frequency or urgency and no hematuria. Planing of generalized weakness, will have physical therapy and occupational therapy assess patient, most likely he will need admission to a [facility] for rehab after this hospital admission Objective - Vital Signs Vital signs: Vital Signs Temp 98.3 F 10/13/20 04:00 Pulse 61 10/13/20 04:00 Resp 18 10/13/20 04:00 BP 136/48 10/13/20 04:00 Pulse Ox 96 10/13/20 04:00 Intake & Output 10/12/20 10/13/20 10/13/20 18:59 06:59 18:59 Intake Total 598 240 Output Total 650 250 Balance -52 -10 Weight 81.3 kg Intake: Oral 598 240 Output: Urine 650 250 Other: Voiding Method Urinal Urinal # Voids 2 1 - Exam In general patient is alert and oriented 3 in no distress Head normocephalic and atraumatic Neck supple no JVD no goiter Lungs diminished bilaterally no crackles no wheezing Heart regular rate and rhythm S1-S2, no rub or gallop Abdomen is soft nontender nondistended positive bowel sounds no hepatospleno megaly Extremities +3 pedal edema noted to right side. Left +1. Bilateral spread is noted to feet. Neuro no gross focal neurological deficit - Labs CBC & Chem 7: 10/13/20 07:23 10/13/20 07:23 Labs: Abnormal Lab Results - Last 24 Hours (Table) 10/12/20 10/12/20 Range/Units 08:54 08:54 RBC 3.42 L (4.30-5.90) m/uL Hgb 9.7 L (13.0-17.5) gm/dL Hct 30.8 L (39.0-53.0) % Lymphocytes # 0.4 L (1.0-4.8) k/uL Sodium 134 L (137-145) mmol/L BUN 113 H* (9-20) mg/dL Creatinine 3.36 H (0.66-1.25) mg/dL Glucose 143 H (74-99) mg/dL Total Protein 6.2 L (6.3-8.2) g/dL Assessment and Plan Assessment: 1. Shortness breath secondary to acute on chronic systolic CHF exacerbation. BNP elevated at 43,000. Patient started on IV Lasix. Cardiomegaly with diffuse bilateral perihilar reticular opacities compatible with interstitial pulmonary disease. 2. Elevated d-dimer. D-dimer 1.46. Venous Doppler ordered to rule out DVT. VQ scan completed showing low probability of PE 3. Elevated troponins. Cardiology services following. Per cardiology note related to ACS 4. Cellulitis to lower extremities. She started on Rocephin. Infectious disease consulted IV antibiotics DC'd 5. Chronic kidney disease stage III. Creatinine 2.5 and bun 69 this does appear on patient's baseline. Nephrology services following. Dobutamine added. Lasix increased. Lasix drips added per nephrology. Patient transitioned to IV Lasix. Lasix held at this time due to increasing creatinine per nephrology 6. 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 History of COPD 8. Paroxysmal atrial fibrillation. Patient started on eliquis per cardiology services 9. Moderate bilateral fem-pop disease. Ultrasound of arteries completed of lower extremity. Patient was evaluated by vascular surgical services recommendations of floating compression stockings or Chano wrapped bilateral lower extremities. Patient currently refusing. No indications for vascular surgical intervention at this time 10. Hemorrhoids. hydrocortisone suppositories added 11. End-stage renal disease started on hemodialysis during this admission DVT prophylaxis eliquis. GI prophylaxis Protonix Cardiology, nephrology, infectious disease and vascular surgery following
[2020-10-13] MEDS: LEVOTHYROXINE 88 MCG TAB PO SCH (20:34)
[2020-10-13] MEDS: FERROUS SULFATE 325 MG TAB PO SCH (20:34)
[2020-10-13] MEDS: DOCUSATE 100 MG CAP PO SCH (20:34)
--- NOTE | 2020-10-14 02:07 | PN ---
PROGRESS NOTE DATE OF SERVICE: 10/13/2020 REASON FOR FOLLOWUP: Bilateral foot cellulitis and athlete's foot. INTERVAL HISTORY: Patient is afebrile, has been breathing comfortably. The patient denies having any chest pain or cough. No abdominal pain or pain to the bilateral feet. PHYSICAL EXAMINATION: Blood pressure 140/52 with a pulse of 66, temperature 98.2. He is 98% on room air. General description is an elderly male lying in bed in no distress. Respiratory system: Unlabored breathing, clear to auscultation anteriorly. Heart S1, S2. Regular rate and rhythm. Abdomen soft, no tenderness. Bilateral foot with swelling, redness decreased, no drainage. LABS: Hemoglobin is 10.1, white count 9.4, BUN of 28, creatinine 2.76. DIAGNOSTIC IMPRESSION AND PLAN: 1. Patient with bilateral foot swelling from underlying renal condition as patient did have evidence of renal failure, currently on dialysis. The patient did have possible cellulitis for the which patient is on oral Keflex, to continue. 2. Patient with bilateral athlete's foot, continue nystatin powder. MMODL / IJN: [id number] /
[2020-10-14] MEDS: HYDROmorphone 0.5 MG/0.5 ML SYRINGE IVP PRN (05:19)
[2020-10-14] MEDS: PANTOPRAZOLE 40 MG TABLET PO SCH (05:20)
[2020-10-14] MEDS: carvediloL 6.25 MG TAB PO SCH ×2 (05:20→17:40)
[2020-10-14] MEDS: CEPHALEXIN 250 MG CAP PO SCH ×3 (08:31→20:34)
[2020-10-14] MEDS: allopurinoL 100 MG TAB PO SCH (08:32)
[2020-10-14] MEDS: APIXABAN 2.5 MG TABLET PO SCH ×2 (08:32→20:33)
[2020-10-14] MEDS: FUROSEMIDE 10 MG/ML 10 ML VIAL IV SCH ×2 (08:32→20:33)
[2020-10-14] MEDS: HYDROCORTISONE SUPPOSITORY 25 MG SUPP RECTAL SCH ×2 (08:32→20:34)
[2020-10-14] MEDS: NYSTATIN 100,000 UNIT/GM POWD 15 GM TOPICAL SCH ×2 (08:32→20:34)
[2020-10-14] MEDS: hydrALAZINE HCL 25 MG TAB PO SCH ×3 (08:32→20:33)
--- NOTE | 2020-10-14 10:15 | P.PN ---
Subjective Progress Note Date: 10/14/20 Sean Lin is an 80-year-old male patient who presented to the ER with complaints of increasing shortness of breath over the past few months. Patient also reports swelling to lower extremities. Patient has a past medical history of A. fib, heart failure, COPD, GERD, GI bleed, hypertension, thyroid disorder. BNP elevated at 42,400. Mildly elevated troponin 0.071 and 0.098. Patient's creatinine 2.59 and bun 69 this does appear on patient's baseline. Patient also elevated d-dimer 1.46. VQ scan ordered due to chronic kidney disease. At that time cardiology services will be consulted. Patient started on IV Lasix. Upon examination feet found cold to touch bilaterally right greater than left with swelling and erythema tender to touch. Will start patient on Rocephin for cellulitis. Will consult vascular surgery due to concerns of arterial disease. Will order venous Doppler to rule out DVT. This time patient denies chest pain. Patient does complain of shortness of breath. Patient denies nausea vomiting or diarrhea. Patient denies any urinary burning or frequency. On 09/26/2020 patient was seen and examined on the telemetry floor he is alert and oriented 3 in no apparent distress he is complaining of pain in both feet he is also complaining of shortness of breath with any activity, otherwise he denies any complaint. There is no fever or chills no headache or dizziness no chest pain, no palpitation no cough no nausea or vomiting no abdominal pain no diarrhea no blood in the stools no burning with urination no frequency or urgency and no hematuria, there is no weakness or numbness in any of the extremities no change in vision speech or gait. D-dimer was elevated at 1.46, patient underwent VQ scan that was low probability for pulmonary embolism, bilateral lower extremity Doppler is still pending, patient also had elevated troponin levels at 0.071, 0.098, 0.092 cardiology are consulted, echocardiogram done patient remains on IV heparin at this time, PTT is therapeutic at 91.9, patient has known history of chronic kidney disease at this time BUN is 74 creatinine 2.33 he was seen in the past by Dr. Rojas, Will place a consult for nephrology for follow-up. On 09/27/2020 patient is alert and oriented 3 resting comfortably in bed. Patient does report improvement with overall shortness of breath. Patient remains on IV Lasix. He was started on eliquis per cardiology services for proximal atrial fibrillation. Arterial ultrasound of the lower extremity is ordered per vascular surgery. At this time patient denies any chest pain or shortness of breath. Patient denies nausea vomiting or diarrhea. Patient denies any urinary burning or frequency. Cardiology, nephrology, infectious disease and vascular surgery are following On 09/28/2020 Patient was seen and examined on the medical floor, he is alert and oriented x 3 in no distress, he denies any complaints there is no fever or chills no headache or dizziness no chest pain no shortness of breath no palpitation no cough no nausea or vomiting no abdominal pain no diarrhea no blood in the stools no burning with urination no frequency or urgency and no hematuria, there is no weakness or numbness in any of the extremities no change in vision speech or gait. Patient is still complaining of severe swelling and erythema and tenderness in his bilateral feet, otherwise he denies any complaints at this time. On 09/29/2020 patient was seen and examined on the medical floor he is alert and oriented 3 in no distress he is complaining of lower extremity pain and swelling otherwise he denies any complaints at this time there is no fever or chills no headache or dizziness no chest pain no shortness of breath no cough no nausea or vomiting no abdominal pain no diarrhea no blood in the stools no burning with urination no frequency or urgency and no hematuria On 09/30/2020 patient is alert and oriented 3 patient is complaining of lower extremity pain and swelling perfusing Chano wraps. Patient also educated on the importance of elevation while in bed. Creatinine 3.01 and bun 81. Patient was started on dobutamine per nephrology services Lasix increased. At this time patient denies chest pain or shortness of breath. Patient denies nausea vomiting or diarrhea. Patient denies any urinary burning or frequency On 10/01/2020 patient was seen and examined on the medical floor, he is alert and oriented 3 he is complaining of lower extremity pain and swelling perfusing Chano wraps. Patient also educated on the importance of elevation while in bed. Creatinine 3.01 and bun 81. Patient was started on dobutamine per nephrology services Lasix increased. At this time patient denies chest pain or shortness of breath. Patient denies nausea vomiting or diarrhea. Patient denies any urinary burning or frequency. He was evaluated by nephrology and was started on insulin drip, patient had arterial study on the lower extremities he will be reevaluated by vascular surgery. On 10/02/2020 patient is alert and oriented 3. Patient has been started on Lasix drip per nephrology remains on dobutamine drip. Weight down from 87.4 kg to 87 kg. Creatinine 3.26 and bun 91. At this time patient denies chest pain or shortness of breath. Patient denies nausea vomiting or diarrhea. Patient denies any urinary burning or frequency On 10/03/2020 patient is alert and oriented 3. He is still complaining of bilateral lower extremity edema and pain in the dorsal aspects of both feet due to severe edema , otherwise he denies any complaints at this time there is no fever or chills no headache or dizziness no chest pain he has mild shortness of breath with activity no shortness of breath at rest no nausea or vomiting no abdominal pain no diarrhea and no urinary symptoms Patient has been started on Lasix drip per nephrology remains on dobutamine drip. Weight down to 85.9 kg. Creatinine 3.26 and bun 91. At this time patient denies chest pain or shortness of breath. Patient denies nausea vomiting or diarrhea. Patient denies any urinary burning or frequency On 10/04/2020 patient is alert and oriented 3. Patient does report improvement with shortness of breath. Weight down from 85.9-82.6 kg. Patient remains on Lasix drip per nephrology. Patient still complaining of bilateral knee pain and patient was reevaluated by vascular surgery continue current medical management no plans for surgical intervention. Patient denies chest pain or shortness breath. Patient denies nausea vomiting or diarrhea. Patient denies any urinary burning or frequency On 10/05/2020 patient was seen and examined on the medical floor he is alert and oriented 3 in no apparent distress, he reports improvement in his shortness of breath and his lower extremity edema, kidney function slightly worse, patient denies any fever or chills no headache or dizziness no chest pain no cough no nausea or vomiting no abdominal pain no diarrhea no burning with urination no frequency or urgency and no hematuria. On 10/06/2020 patient was seen and examined on the medical floor he is alert and oriented 3 in no apparent distress, he is feeling more tired and weak today, kidney function again worse today. patient denies any fever or chills no headache or dizziness no chest pain no cough no nausea or vomiting no abdominal pain no diarrhea no burning with urination no frequency or urgency and no hematuria. Nephrology following at this time Lasix drip was discontinued and patient was started on IV Lasix twice a day Will monitor closely On 10/07/2020 patient is alert and oriented 3. Patient is feeling nauseous today. Patient's creatinine increasing to 3.96. Patient was switched from Lasix drip to IV Lasix yesterday. Per nephrology services IV Lasix will be held due to increasing creatinine area and patient denies chest pain or shortness of breath. Patient denies any urinary burning or frequency On 10/08/2020 patient is alert and oriented 3. Patient reports improvement with nausea. Diuretics were stopped for nephrology yesterday. Edema does appear improved to lower extremities. Patient remains with good urine output. Creatinine 3.94 and bun 141. Per nephrology services continue to hold Lasix due to rising bun and creatinine. This time patient denies chest pain or shortness of breath. Patient denies nausea vomiting or diarrhea. Patient denies any urinary burning or frequency On 10/09/2020 Patient was seen and examined on the medical floor, he is alert and oriented x 3 in no distress, he denies any complaints there is no fever or chills no headache or dizziness no chest pain no shortness of breath no palpitation no cough no nausea or vomiting no abdominal pain no diarrhea no blood in the stools no burning with urination no frequency or urgency and no hematuria, patient was told by nephrology that he will need hemodialysis, he had many questions in that regard, significant amount of time was spent answering patient's questions today, he wishes to speak to a social worker assistant, to see if patient can have any help as outpatient in regard to his transportation to the dialysis center , a consult for social worker assistant was requested . On 10/10/2020 Patient was seen and examined on the medical floor, he is alert and oriented x 3 in no distress, he denies any complaints there is no fever or chills no headache or dizziness no chest pain no shortness of breath no palpitation no cough no nausea or vomiting no abdominal pain no diarrhea no blood in the stools no burning with urination no frequency or urgency and no hematuria, patient was started on dialysis today, we will continue to monitor follow-up in a.m. On 10/11/2020 patient was seen and examined on the medical floor he is alert and oriented 3 in no apparent distress, he is complaining of pain in the right neck site of catheter insertion for dialysis otherwise he denies any fever or chills no headache or dizziness no chest pain no cough no nausea or vomiting no abdominal pain no diarrhea no burning with urination no frequency or urgency and no hematuria. Nurse is notifying vascular surgery of patient or complaint of pain at the site of catheter insertion. On 10/12/2020 Patient was seen and examined on the medical floor, he is alert and oriented x 3 in no distress, he denies any complaints there is no fever or chills no headache or dizziness no chest pain no shortness of breath no palpitation no cough no nausea or vomiting no abdominal pain no diarrhea no blood in the stools no burning with urination no frequency or urgency and no hematuria, at this time will continue with current management will try to increase activity with physical therapy and occupational therapy will assess tomorrow if patient is ready to go home or if he needs to go to a intermediate for rehabilitation first. On 10/13/2020 patient was seen and examined on the medical floor he is alert and oriented 3 in no apparent distress he is having dialysis at this time, there is no fever or chills no headache or dizziness no chest pain no shortness of breath no cough no nausea or vomiting no abdominal pain no diarrhea no blood in the stools no burning with urination no frequency or urgency and no hematuria. Planing of generalized weakness, will have physical therapy and occupational therapy assess patient, most likely he will need admission to a intermediate for rehab after this hospital admission On 10/14/2020 patient is alert and oriented 3. Patient was started on hemodialysis patient reports minimum improvement with dialysis in regards to lower extremity. Lower extremities do appear improved. At this time patient denies chest pain or shortness breath. Patient denies nausea vomiting or diarrhea. Patient denies any urinary burning or frequency. Patient was evaluated by PT OT recommended subacute rehab upon discharge Objective - Vital Signs Vital signs: Vital Signs Temp 98.2 F 10/14/20 08:28 Pulse 62 10/14/20 08:28 Resp 18 10/14/20 08:28 BP 135/67 10/14/20 08:28 Pulse Ox 99 10/14/20 08:28 Intake & Output 10/13/20 10/14/20 10/14/20 18:59 06:59 18:59 Intake Total 466 480 Output Total 2200 Balance -1734 480 Weight 81 kg Intake: Oral 466 480 Output: Urine 200 Hemodialysis 2000 Other: Voiding Method Urinal Urinal - Exam In general patient is alert and oriented 3 in no distress Head normocephalic and atraumatic Neck supple no JVD no goiter Lungs diminished bilaterally no crackles no wheezing Heart regular rate and rhythm S1-S2, no rub or gallop Abdomen is soft nontender nondistended positive bowel sounds no hepatosplenomegaly Extremities +3 pedal edema noted to right side. Left +1. Bilateral spread is noted to feet. Neuro no gross focal neurological deficit - Labs CBC & Chem 7: 10/13/20 07:23 10/13/20 07:23 Assessment and Plan Assessment: 1. Shortness breath secondary to acute on chronic systolic CHF exacerbation. BNP elevated at 43,000. Patient started on IV Lasix. Cardiomegaly with diffuse bilateral perihilar reticular opacities compatible with interstitial pulmonary disease. 2. Elevated d-dimer. D-dimer 1.46. Venous Doppler ordered to rule out DVT. VQ scan completed showing low probability of PE 3. Elevated troponins. Cardiology services following. Per cardiology note related to ACS 4. Cellulitis to lower extremities. She started on Rocephin. Infectious dise ase consulted IV antibiotics DC'd 5. Chronic kidney disease stage III. Creatinine 2.5 and bun 69 this does appear on patient's baseline. Nephrology services following. Dobutamine added. Lasix increased. Lasix drips added per nephrology. Patient transitioned to IV Lasix. Lasix held at this time due to increasing creatinine per nephrology 6. 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 History of COPD 8. Paroxysmal atrial fibrillation. Patient started on eliquis per cardiology services 9. Moderate bilateral fem-pop disease. Ultrasound of arteries completed of lower extremity. Patient was evaluated by vascular surgical services recommendations of floating compression stockings or Chano wrapped bilateral lower extremities. Patient currently refusing. No indications for vascular surgical intervention at this time 10. Hemorrhoids. hydrocortisone suppositories added 11. End-stage renal disease started on hemodialysis during this admission DVT prophylaxis eliquis. GI prophylaxis Protonix Cardiology, nephrology, infectious disease and vascular surgery following
[2020-10-14 11:02] LABS: Basophils % (A) 1 %; Eosinophils # (A) 0.2 k/uL (0-0.7); Eosinophils % (A) 2 %; HCT 31.7 % (39.0-53.0); HGB 10.1 gm/dL (13.0-17.5); Hypochromasia Slight; Lymphocytes # (A) 0.4 k/uL (1.0-4.8); Lymphocytes % (A) 5 %; MCH 28.8 pg (25.0-35.0); MCHC 31.9 g/dL (31.0-37.0); MCV 90.4 fL (80.0-100.0); Mean Platelet Volume 7.8; Monocytes # (A) 0.8 k/uL (0-1.0); Monocytes % (A) 10 %; Neutrophils # (A) 6.7 k/uL (1.3-7.7); Neutrophils % (A) 80 %; Platelet Count 280 k/uL (150-450); RBC 3.51 m/uL (4.30-5.90); RDW 14.8 % (11.5-15.5); WBC 8.4 k/uL (3.8-10.6)
[2020-10-14 11:14] LABS: Albumin 3.6 g/dL (3.5-5.0); Calcium 9.2 mg/dL (8.4-10.2); Potassium 4.1 mmol/L (3.5-5.1); Total Bilirubin 0.3 mg/dL (0.2-1.3); Total Protein 6.8 g/dL (6.3-8.2)
--- NOTE | 2020-10-14 15:30 | PN ---
PROGRESS NOTE Patient is seen for followup for acute kidney injury, currently maintained on dialysis. This morning patient states that he is concerned about renal replacement therapy and may not want to continue it as outpatient. His overall volume status has improved. We have removed about 4 L over the last two dialysis treatments. PHYSICAL EXAMINATION: On examination today, the patient is comfortable. Blood pressure is 142/53, heart rate 60 per minute. He is afebrile. Examination of the heart S1, S2. Examination of the lungs, bilateral breath sounds are heard. Abdomen is soft, nontender. Examination of lower extremities shows bilateral extremities to be wrapped. Swelling has decreased. LAB: Show sodium 136, potassium 4.1, BUN 71, creatinine 3.0 hemoglobin 10.1 g/dL. ASSESSMENT: 1. Acute kidney injury with progressive renal failure and volume overload and subtle uremia, started on dialysis, tolerating treatment fairly well. At this time patient is not sure if he wants to continue with outpatient dialysis. He states he will think about it, but he is agreeable for his treatment tomorrow. 2. Volume overload, slowly improving. 3. Chronic kidney disease stage 4, previous creatinine about 2.5, etiology nephrosclerosis. 4. Severe pulmonary hypertension. 5. Bilateral lower extremity cellulitis, currently improving. 6. Cardiomyopathy, ejection fraction 30-35% with moderate to severe aortic regurgitation, tricuspid regurgitation and pulmonary hypertension. PLAN: Repeat hemodialysis tomorrow. Arrange for outpatient chair time unless patient decides to discontinue renal replacement therapy and consider hospice. I believe he is not ready for hospice yet. MMODL / IJN: [id number] /
[2020-10-14] MEDS: DOCUSATE 100 MG CAP PO SCH (20:32)
[2020-10-14] MEDS: FERROUS SULFATE 325 MG TAB PO SCH (20:32)
[2020-10-14] MEDS: LEVOTHYROXINE 88 MCG TAB PO SCH (20:33)
--- NOTE | 2020-10-14 22:31 | PN ---
PROGRESS NOTE DATE OF SERVICE: 10/14/2020 REASON FOR FOLLOWUP VISIT: Bilateral foot cellulitis and Athlete's foot. INTERVAL HISTORY: Patient is afebrile. The patient is breathing comfortably on room air. The patient denies any chest pain, shortness of breath, cough, abdominal pain, or any worsening pain to the bilateral foot area. PHYSICAL EXAMINATION: Blood pressure 136/76, pulse 84, temp is 97.8. He is 97% on room air. General description: The patient is an elderly male lying in bed in no distress. Respiratory system: Unlabored breathing, decreased breath sounds in the bases. No wheeze. Heart S1, S2. Regular rate and rhythm. Abdomen soft, no tenderness. Feet currently dressed up. No obvious drainage on the dressing. LABS: Hemoglobin is 10.1, white count 8.4, BUN of 71, creatinine 3.0. DIAGNOSTIC IMPRESSION AND PLAN: 1. Patient with bilateral foot swelling from underlying fluid overload, possible a component of cellulitis, on oral Keflex for short course to continue. 2. Athlete's foot. Continue nystatin powder in between the toes for about a week. MMODL / IJN: [id number] /
[2020-10-15] MEDS: PANTOPRAZOLE 40 MG TABLET PO SCH (06:17)
[2020-10-15] MEDS: carvediloL 6.25 MG TAB PO SCH ×2 (06:17→17:45)
[2020-10-15] MEDS: allopurinoL 100 MG TAB PO SCH (08:17)
[2020-10-15] MEDS: CEPHALEXIN 250 MG CAP PO SCH ×3 (08:17→20:12)
[2020-10-15] MEDS: APIXABAN 2.5 MG TABLET PO SCH ×2 (08:17→20:10)
[2020-10-15] MEDS: hydrALAZINE HCL 25 MG TAB PO SCH ×3 (08:17→20:12)
[2020-10-15] MEDS: FUROSEMIDE 10 MG/ML 10 ML VIAL IV SCH ×2 (08:17→20:11)
[2020-10-15] MEDS: NYSTATIN 100,000 UNIT/GM POWD 15 GM TOPICAL SCH ×2 (08:18→20:13)
[2020-10-15] MEDS: HYDROCORTISONE SUPPOSITORY 25 MG SUPP RECTAL SCH ×2 (08:18→20:11)
--- NOTE | 2020-10-15 15:22 | PN ---
PROGRESS NOTE Patient is seen for followup for acute kidney injury and volume overload. This morning patient has refused dialysis. He has had 2 treatments. He states that he does not want to continue with renal replacement therapy. He believes at this time it is not helping him much. The patient was considering leaving AMA last night. PHYSICAL EXAMINATION: On examination today, blood pressure is 163/67, heart rate 60 per minute. He is afebrile. Examination of the heart S1, S2. Examination of the lungs, decreased breath sounds at bases. Abdomen is soft, nontender, obese. Examination lower extremities shows 2+ edema bilaterally. TECHNICAL TRAINING SPECIALIST exam grossly intact. Patient is lethargic. LABS: From yesterday on October 14 show sodium 136, potassium 4.1, BUN 71, hemoglobin 10.1 g/dL. ASSESSMENT: 1. Acute kidney injury, cardiorenal and component of ATN, started on dialysis, currently nonoliguric. The patient does not want to continue with renal replacement therapy. 2. Volume overload, slowly improving, maintained on IV Lasix as well. 3. Generalized debility. 4. Chronic kidney disease, stage 4. Baseline creatinine about 2.5 secondary to nephrosclerosis. 5. Bilateral lower extremity cellulitis. 6. Cardiomyopathy, ejection fraction 30-35% with moderate to severe aortic regurgitation and tricuspid regurgitation. 7. Volume overload, slowly improving. PLAN: We will hold off on dialysis. Patient does not want to continue with renal replacement therapy. I have discussed with him options regarding hospice and he is not agreeable to that. MMRADHAL / VINNYN: [id number] /
--- NOTE | 2020-10-15 19:04 | P.PN ---
Progress Note - Text Progress Note Date: 10/15/20 Addendum to progress note on 10/15/2020 on Sean Lin: I had a prolonged meeting and discussion with Mr. Lin in the evening on 10/15/2020 Choices for treatment and destination at the time of discharge where discussed in detail Possibility of having hospice care and transfer to the hospice house or one of the nursing homes was discussed. Possibility of resuming hemodialysis at this time, and a trial of staying at [facility] and continuing hemodialysis was discussed. At this time patient is agreeable to resume hemodialysis, with possible transfer to [facility] next week. Patient has evidence of depression and at this time will start on Lexapro 10 mg once daily in a.m. Nurse was updated about above discussion, she was asked to notify nephrology about patient decision to resume dialysis tomorrow.
--- NOTE | 2020-10-15 19:06 | P.PN ---
Subjective Progress Note Date: 10/15/20 Sean Lin is an 80-year-old male patient who presented to the ER with complaints of increasing shortness of breath over the past few months. Patient also reports swelling to lower extremities. Patient has a past medical history of A. fib, heart failure, COPD, GERD, GI bleed, hypertension, thyroid disorder. BNP elevated at 42,400. Mildly elevated troponin 0.071 and 0.098. Patient's creatinine 2.59 and bun 69 this does appear on patient's baseline. Patient also elevated d-dimer 1.46. VQ scan ordered due to chronic kidney disease. At that time cardiology services will be consulted. Patient started on IV Lasix. Upon examination feet found cold to touch bilaterally right greater than left with swelling and erythema tender to touch. Will start patient on Rocephin for cellulitis. Will consult vascular surgery due to concerns of arterial disease. Will order venous Doppler to rule out DVT. This time patient denies chest pain. Patient does complain of shortness of breath. Patient denies nausea vomiting or diarrhea. Patient denies any urinary burning or frequency. On 09/26/2020 patient was seen and examined on the telemetry floor he is alert and oriented 3 in no apparent distress he is complaining of pain in both feet he is also complaining of shortness of breath with any activity, otherwise he denies any complaint. There is no fever or chills no headache or dizziness no chest pain, no palpitation no cough no nausea or vomiting no abdominal pain no diarrhea no blood in the stools no burning with urination no frequency or urgency and no hematuria, there is no weakness or numbness in any of the extremities no change in vision speech or gait. D-dimer was elevated at 1.46, patient underwent VQ scan that was low probability for pulmonary embolism, bilateral lower extremity Doppler is still pending, patient also had elevated troponin levels at 0.071, 0.098, 0.092 cardiology are consulted, echocardiogram done patient remains on IV heparin at this time, PTT is therapeutic at 91.9, patient has known history of chronic kidney disease at this time BUN is 74 creatinine 2.33 he was seen in the past by Dr. Rojas, Will place a consult for nephrology for follow-up. On 09/27/2020 patient is alert and oriented 3 resting comfortably in bed. Patient does report improvement with overall shortness of breath. Patient remains on IV Lasix. He was started on eliquis per cardiology services for proximal atrial fibrillation. Arterial ultrasound of the lower extremity is ordered per vascular surgery. At this time patient denies any chest pain or shortness of breath. Patient denies nausea vomiting or diarrhea. Patient denies any urinary burning or frequency. Cardiology, nephrology, infectious disease and vascular surgery are following On 09/28/2020 Patient was seen and examined on the medical floor, he is alert and oriented x 3 in no distress, he denies any complaints there is no fever or chills no headache or dizziness no chest pain no shortness of breath no palpitation no cough no nausea or vomiting no abdominal pain no diarrhea no blood in the stools no burning with urination no frequency or urgency and no hematuria, there is no weakness or numbness in any of the extremities no change in vision speech or gait. Patient is still complaining of severe swelling and erythema and tenderness in his bilateral feet, otherwise he denies any complaints at this time. On 09/29/2020 patient was seen and examined on the medical floor he is alert and oriented 3 in no distress he is complaining of lower extremity pain and swelling otherwise he denies any complaints at this time there is no fever or chills no headache or dizziness no chest pain no shortness of breath no cough no nausea or vomiting no abdominal pain no diarrhea no blood in the stools no burning with urination no frequency or urgency and no hematuria On 09/30/2020 patient is alert and oriented 3 patient is complaining of lower extremity pain and swelling perfusing Chano wraps. Patient also educated on the importance of elevation while in bed. Creatinine 3.01 and bun 81. Patient was started on dobutamine per nephrology services Lasix increased. At this time patient denies chest pain or shortness of breath. Patient denies nausea vomiting or diarrhea. Patient denies any urinary burning or frequency On 10/01/2020 patient was seen and examined on the medical floor, he is alert and oriented 3 he is complaining of lower extremity pain and swelling perfusing Chano wraps. Patient also educated on the importance of elevation while in bed. Creatinine 3.01 and bun 81. Patient was started on dobutamine per nephrology services Lasix increased. At this time patient denies chest pain or shortness of breath. Patient denies nausea vomiting or diarrhea. Patient denies any urinary burning or frequency. He was evaluated by nephrology and was started on insulin drip, patient had arterial study on the lower extremities he will be reevaluated by vascular surgery. On 10/02/2020 patient is alert and oriented 3. Patient has been started on Lasix drip per nephrology remains on dobutamine drip. Weight down from 87.4 kg to 87 kg. Creatinine 3.26 and bun 91. At this time patient denies chest pain or shortness of breath. Patient denies nausea vomiting or diarrhea. Patient denies any urinary burning or frequency On 10/03/2020 patient is alert and oriented 3. He is still complaining of bilateral lower extremity edema and pain in the dorsal aspects of both feet due to severe edema , otherwise he denies any complaints at this time there is no fever or chills no headache or dizziness no chest pain he has mild shortness of breath with activity no shortness of breath at rest no nausea or vomiting no abdominal pain no diarrhea and no urinary symptoms Patient has been started on Lasix drip per nephrology remains on dobutamine drip. Weight down to 85.9 kg. Creatinine 3.26 and bun 91. At this time patient denies chest pain or shortness of breath. Patient denies nausea vomiting or diarrhea. Patient denies any urinary burning or frequency On 10/04/2020 patient is alert and oriented 3. Patient does report improvement with shortness of breath. Weight down from 85.9-82.6 kg. Patient remains on Lasix drip per nephrology. Patient still complaining of bilateral knee pain and patient was reevaluated by vascular surgery continue current medical management no plans for surgical intervention. Patient denies chest pain or shortness breath. Patient denies nausea vomiting or diarrhea. Patient denies any urinary burning or frequency On 10/05/2020 patient was seen and examined on the medical floor he is alert and oriented 3 in no apparent distress, he reports improvement in his shortness of breath and his lower extremity edema, kidney function slightly worse, patient denies any fever or chills no headache or dizziness no chest pain no cough no nausea or vomiting no abdominal pain no diarrhea no burning with urination no frequency or urgency and no hematuria. On 10/06/2020 patient was seen and examined on the medical floor he is alert and oriented 3 in no apparent distress, he is feeling more tired and weak today, kidney function again worse today. patient denies any fever or chills no headache or dizziness no chest pain no cough no nausea or vomiting no abdominal pain no diarrhea no burning with urination no frequency or urgency and no hematuria. Nephrology following at this time Lasix drip was discontinued and patient was started on IV Lasix twice a day Will monitor closely On 10/07/2020 patient is alert and oriented 3. Patient is feeling nauseous today. Patient's creatinine increasing to 3.96. Patient was switched from Lasix drip to IV Lasix yesterday. Per nephrology services IV Lasix will be held due to increasing creatinine area and patient denies chest pain or shortness of breath. Patient denies any urinary burning or frequency On 10/08/2020 patient is alert and oriented 3. Patient reports improvement with nausea. Diuretics were stopped for nephrology yesterday. Edema does appear improved to lower extremities. Patient remains with good urine output. Creatinine 3.94 and bun 141. Per nephrology services continue to hold Lasix due to rising bun and creatinine. This time patient denies chest pain or shortness of breath. Patient denies nausea vomiting or diarrhea. Patient denies any urinary burning or frequency On 10/09/2020 Patient was seen and examined on the medical floor, he is alert and oriented x 3 in no distress, he denies any complaints there is no fever or chills no headache or dizziness no chest pain no shortness of breath no palpitation no cough no nausea or vomiting no abdominal pain no diarrhea no blood in the stools no burning with urination no frequency or urgency and no hematuria, patient was told by nephrology that he will need hemodialysis, he had many questions in that regard, significant amount of time was spent answering patient's questions today, he wishes to speak to a high school social science teacher, to see if patient can have any help as outpatient in regard to his transportation to the dialysis center , a consult for high school social science teacher was requested . On 10/10/2020 Patient was seen and examined on the medical floor, he is alert and oriented x 3 in no distress, he denies any complaints there is no fever or chills no headache or dizziness no chest pain no shortness of breath no palpitation no cough no nausea or vomiting no abdominal pain no diarrhea no blood in the stools no burning with urination no frequency or urgency and no hematuria, patient was started on dialysis today, we will continue to monitor follow-up in a.m. On 10/11/2020 patient was seen and examined on the medical floor he is alert and oriented 3 in no apparent distress, he is complaining of pain in the right neck site of catheter insertion for dialysis otherwise he denies any fever or chills no headache or dizziness no chest pain no cough no nausea or vomiting no abdominal pain no diarrhea no burning with urination no frequency or urgency and no hematuria. Nurse is notifying vascular surgery of patient or complaint of pain at the site of catheter insertion. On 10/12/2020 Patient was seen and examined on the medical floor, he is alert and oriented x 3 in no distress, he denies any complaints there is no fever or chills no headache or dizziness no chest pain no shortness of breath no palpitation no cough no nausea or vomiting no abdominal pain no diarrhea no blood in the stools no burning with urination no frequency or urgency and no hematuria, at this time will continue with current management will try to increase activity with physical therapy and occupational therapy will assess tomorrow if patient is ready to go home or if he needs to go to a residential for rehabilitation first. On 10/13/2020 patient was seen and examined on the medical floor he is alert and oriented 3 in no apparent distress he is having dialysis at this time, there is no fever or chills no headache or dizziness no chest pain no shortness of breath no cough no nausea or vomiting no abdominal pain no diarrhea no blood in the stools no burning with urination no frequency or urgency and no hematuria. Planing of generalized weakness, will have physical therapy and occupational therapy assess patient, most likely he will need admission to a residential for rehab after this hospital admission On 10/14/2020 patient is alert and oriented 3. Patient was started on hemodialysis patient reports minimum improvement with dialysis in regards to lower extremity. Lower extremities do appear improved. At this time patient denies chest pain or shortness breath. Patient denies nausea vomiting or diarrhea. Patient denies any urinary burning or frequency. Patient was evaluated by PT OT recommended subacute rehab upon discharge. On 10/15/2020 patient was seen and examined on the medical floor he is alert and oriented 3 in no distress, patient is quite upset today, he has told the nurse that he was refusing dialysis, clinically he denies any complaints there is no fever or chills no headache or dizziness no chest pain no shortness of breath no cough no nausea or vomiting no abdominal pain no diarrhea no blood in the stools no burning with urination no frequency or urgency and no hematuria. workers compensation examiner were asked to talk to patient in regard to possibility of discharge with hospice. Objective - Vital Signs Vital signs: Vital Signs Temp 97.7 F 10/15/20 17:42 Pulse 59 L 10/15/20 17:42 Resp 18 10/15/20 17:42 BP 153/56 10/15/20 17:42 Pulse Ox 99 10/15/20 17:42 Intake & Output 10/14/20 10/15/20 10/15/20 18:59 06:59 18:59 Intake Total 1200 Output Total 200 Balance 1200 -200 Weight 81.4 kg Intake: Oral 1200 Output: Urine 200 Other: Voiding Method Urinal Urinal Urinal - Exam In general patient is alert and oriented 3 in no distress Head normocephalic and atraumatic Neck supple no JVD no goiter Lungs diminished bilaterally no crackles no wheezing Heart regular rate and rhythm S1-S2, no rub or gallop Abdomen is soft nontender nondistended positive bowel sounds no hepatosplenomegaly Extremities +3 pedal edema noted to right side. Left +1. Bilateral spread is noted to feet. Neuro no gross focal neurological deficit - Labs CBC & Chem 7: 10/14/20 10:25 10/14/20 10:25 Assessment and Plan Assessment: 1. Shortness breath secondary to acute on chronic systolic CHF exacerbation. BNP elevated at 43,000. Patient started on IV Lasix. Cardiomegaly with diffuse bilateral perihilar reticular opacities compatible with interstitial pulmonary disease. 2. Elevated d-dimer. D-dimer 1.46. Venous Doppler ordered to rule out DVT. VQ scan completed showing low probability of PE 3. Elevated troponins. Cardiology services following. Per cardiology note related to ACS 4. Cellulitis to lower extremities. She started on Rocephin. Infectious disease consulted IV antibiotics DC'd 5. Chronic kidney disease stage III. Creatinine 2.5 and bun 69 this does appear on patient's baseline. Nephrology services following. Dobutamine added. Lasix increased. Lasix drips added per nephrology. Patient transitioned to IV Lasix. Lasix held at this time due to increasing creatinine per nephrology 6. 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 History of COPD 8. Paroxysmal atrial fibrillation. Patient started on eliquis per cardiology services 9. Moderate bilateral fem-pop disease. Ultrasound of arteries completed of lower extremity. Patient was evaluated by vascular surgical services recommendations of floating compression stockings or Chano wrapped bilateral lower extremities. Patient currently refusing. No indications for vascular surgical intervention at this time 10. Hemorrhoids. hydrocortisone suppositories added 11. End-stage renal disease started on hemodialysis during this admission DVT prophylaxis eliquis. GI prophylaxis Protonix Cardiology, nephrology, infectious disease and vascular surgery following
[2020-10-15] MEDS: LEVOTHYROXINE 88 MCG TAB PO SCH (20:11)
[2020-10-15] MEDS: FERROUS SULFATE 325 MG TAB PO SCH (20:11)
[2020-10-15] MEDS: DOCUSATE 100 MG CAP PO SCH (20:11)
[2020-10-15] MEDS: HYDROcodone/APAP 5-325MG 1 EACH TAB PO PRN (20:12)
[2020-10-16] MEDS: HYDROcodone/APAP 5-325MG 1 EACH TAB PO PRN ×3 (02:48→18:57)
[2020-10-16] MEDS: carvediloL 6.25 MG TAB PO SCH ×2 (06:41→16:43)
[2020-10-16] MEDS: PANTOPRAZOLE 40 MG TABLET PO SCH (06:41)
[2020-10-16] MEDS: allopurinoL 100 MG TAB PO SCH (08:15)
[2020-10-16] MEDS: CEPHALEXIN 250 MG CAP PO SCH ×3 (08:15→21:05)
[2020-10-16] MEDS: APIXABAN 2.5 MG TABLET PO SCH ×2 (08:15→21:02)
[2020-10-16] MEDS: ESCITALOPRAM 10 MG TAB PO SCH (08:15)
[2020-10-16] MEDS: NYSTATIN 100,000 UNIT/GM POWD 15 GM TOPICAL SCH ×2 (08:16→21:03)
[2020-10-16] MEDS: HYDROCORTISONE SUPPOSITORY 25 MG SUPP RECTAL SCH ×3 (08:17→20:58)
[2020-10-16 09:23] LABS: Basophils # (A) 0.1 k/uL (0-0.2); Basophils % (A) 1 %; Eosinophils # (A) 0.3 k/uL (0-0.7); Eosinophils % (A) 4 %; HCT 32.3 % (39.0-53.0); HGB 10.3 gm/dL (13.0-17.5); Hypochromasia Slight; Lymphocytes # (A) 0.6 k/uL (1.0-4.8); Lymphocytes % (A) 7 %; MCH 28.8 pg (25.0-35.0); Mean Platelet Volume 7.9; Monocytes # (A) 0.7 k/uL (0-1.0); Monocytes % (A) 9 %; Neutrophils # (A) 6.4 k/uL (1.3-7.7); Neutrophils % (A) 78 %; Platelet Count 333 k/uL (150-450); RBC 3.59 m/uL (4.30-5.90); RDW 14.8 % (11.5-15.5); WBC 8.2 k/uL (3.8-10.6)
[2020-10-16 09:27] LABS: Albumin 3.7 g/dL (3.5-5.0); Calcium 9.2 mg/dL (8.4-10.2); Total Bilirubin 0.4 mg/dL (0.2-1.3); Total Protein 6.5 g/dL (6.3-8.2)
--- NOTE | 2020-10-16 10:17 | P.PN ---
Subjective Progress Note Date: 10/16/20 Sean Lin is an 80-year-old male patient who presented to the ER with complaints of increasing shortness of breath over the past few months. Patient also reports swelling to lower extremities. Patient has a past medical history of A. fib, heart failure, COPD, GERD, GI bleed, hypertension, thyroid disorder. BNP elevated at 42,400. Mildly elevated troponin 0.071 and 0.098. Patient's creatinine 2.59 and bun 69 this does appear on patient's baseline. Patient also elevated d-dimer 1.46. VQ scan ordered due to chronic kidney disease. At that time cardiology services will be consulted. Patient started on IV Lasix. Upon examination feet found cold to touch bilaterally right greater than left with swelling and erythema tender to touch. Will start patient on Rocephin for cellulitis. Will consult vascular surgery due to concerns of arterial disease. Will order venous Doppler to rule out DVT. This time patient denies chest pain. Patient does complain of shortness of breath. Patient denies nausea vomiting or diarrhea. Patient denies any urinary burning or frequency. On 09/26/2020 patient was seen and examined on the telemetry floor he is alert and oriented 3 in no apparent distress he is complaining of pain in both feet he is also complaining of shortness of breath with any activity, otherwise he denies any complaint. There is no fever or chills no headache or dizziness no chest pain, no palpitation no cough no nausea or vomiting no abdominal pain no diarrhea no blood in the stools no burning with urination no frequency or urgency and no hematuria, there is no weakness or numbness in any of the extremities no change in vision speech or gait. D-dimer was elevated at 1.46, patient underwent VQ scan that was low probability for pulmonary embolism, bilateral lower extremity Doppler is still pending, patient also had elevated troponin levels at 0.071, 0.098, 0.092 cardiology are consulted, echocardiogram done patient remains on IV heparin at this time, PTT is therapeutic at 91.9, patient has known history of chronic kidney disease at this time BUN is 74 creatinine 2.33 he was seen in the past by Dr. Rojas, Will place a consult for nephrology for follow-up. On 09/27/2020 patient is alert and oriented 3 resting comfortably in bed. Patient does report improvement with overall shortness of breath. Patient remains on IV Lasix. He was started on eliquis per cardiology services for proximal atrial fibrillation. Arterial ultrasound of the lower extremity is ordered per vascular surgery. At this time patient denies any chest pain or shortness of breath. Patient denies nausea vomiting or diarrhea. Patient denies any urinary burning or frequency. Cardiology, nephrology, infectious disease and vascular surgery are following On 09/28/2020 Patient was seen and examined on the medical floor, he is alert and oriented x 3 in no distress, he denies any complaints there is no fever or chills no headache or dizziness no chest pain no shortness of breath no palpitation no cough no nausea or vomiting no abdominal pain no diarrhea no blood in the stools no burning with urination no frequency or urgency and no hematuria, there is no weakness or numbness in any of the extremities no change in vision speech or gait. Patient is still complaining of severe swelling and erythema and tenderness in his bilateral feet, otherwise he denies any complaints at this time. On 09/29/2020 patient was seen and examined on the medical floor he is alert and oriented 3 in no distress he is complaining of lower extremity pain and swelling otherwise he denies any complaints at this time there is no fever or chills no headache or dizziness no chest pain no shortness of breath no cough no nausea or vomiting no abdominal pain no diarrhea no blood in the stools no burning with urination no frequency or urgency and no hematuria On 09/30/2020 patient is alert and oriented 3 patient is complaining of lower extremity pain and swelling perfusing Ch[place] wraps. Patient also educated on the importance of elevation while in bed. Creatinine 3.01 and bun 81. Patient was started on dobutamine per nephrology services Lasix increased. At this time patient denies chest pain or shortness of breath. Patient denies nausea vomiting or diarrhea. Patient denies any urinary burning or frequency On 10/01/2020 patient was seen and examined on the medical floor, he is alert and oriented 3 he is complaining of lower extremity pain and swelling perfusing Chano wraps. Patient also educated on the importance of elevation while in bed. Creatinine 3.01 and bun 81. Patient was started on dobutamine per nephrology services Lasix increased. At this time patient denies chest pain or shortness of breath. Patient denies nausea vomiting or diarrhea. Patient denies any urinary burning or frequency. He was evaluated by nephrology and was started on insulin drip, patient had arterial study on the lower extremities he will be reevaluated by vascular surgery. On 10/02/2020 patient is alert and oriented 3. Patient has been started on Lasix drip per nephrology remains on dobutamine drip. Weight down from 87.4 kg to 87 kg. Creatinine 3.26 and bun 91. At this time patient denies chest pain or shortness of breath. Patient denies nausea vomiting or diarrhea. Patient denies any urinary burning or frequency On 10/03/2020 patient is alert and oriented 3. He is still complaining of bilateral lower extremity edema and pain in the dorsal aspects of both feet due to severe edema , otherwise he denies any complaints at this time there is no fever or chills no headache or dizziness no chest pain he has mild shortness of breath with activity no shortness of breath at rest no nausea or vomiting no abdominal pain no diarrhea and no urinary symptoms Patient has been started on Lasix drip per nephrology remains on dobutamine drip. Weight down to 85.9 kg. Creatinine 3.26 and bun 91. At this time patient denies chest pain or shortness of breath. Patient denies nausea vomiting or diarrhea. Patient denies any urinary burning or frequency On 10/04/2020 patient is alert and oriented 3. Patient does report improvement with shortness of breath. Weight down from 85.9-82.6 kg. Patient remains on Lasix drip per nephrology. Patient still complaining of bilateral knee pain and patient was reevaluated by vascular surgery continue current medical management no plans for surgical intervention. Patient denies chest pain or shortness breath. Patient denies nausea vomiting or diarrhea. Patient denies any urinary burning or frequency On 10/05/2020 patient was seen and examined on the medical floor he is alert and oriented 3 in no apparent distress, he reports improvement in his shortness of breath and his lower extremity edema, kidney function slightly worse, patient denies any fever or chills no headache or dizziness no chest pain no cough no nausea or vomiting no abdominal pain no diarrhea no burning with urination no frequency or urgency and no hematuria. On 10/06/2020 patient was seen and examined on the medical floor he is alert and oriented 3 in no apparent distress, he is feeling more tired and weak today, kidney function again worse today. patient denies any fever or chills no headache or dizziness no chest pain no cough no nausea or vomiting no abdominal pain no diarrhea no burning with urination no frequency or urgency and no hematuria. Nephrology following at this time Lasix drip was discontinued and patient was started on IV Lasix twice a day Will monitor closely On 10/07/2020 patient is alert and oriented 3. Patient is feeling nauseous today. Patient's creatinine increasing to 3.96. Patient was switched from Lasix drip to IV Lasix yesterday. Per nephrology services IV Lasix will be held due to increasing creatinine area and patient denies chest pain or shortness of breath. Patient denies any urinary burning or frequency On 10/08/2020 patient is alert and oriented 3. Patient reports improvement with nausea. Diuretics were stopped for nephrology yesterday. Edema does appear improved to lower extremities. Patient remains with good urine output. Creatinine 3.94 and bun 141. Per nephrology services continue to hold Lasix due to rising bun and creatinine. This time patient denies chest pain or shortness of breath. Patient denies nausea vomiting or diarrhea. Patient denies any urinary burning or frequency On 10/09/2020 Patient was seen and examined on the medical floor, he is alert and oriented x 3 in no distress, he denies any complaints there is no fever or chills no headache or dizziness no chest pain no shortness of breath no palpitation no cough no nausea or vomiting no abdominal pain no diarrhea no blood in the stools no burning with urination no frequency or urgency and no hematuria, patient was told by nephrology that he will need hemodialysis, he had many questions in that regard, significant amount of time was spent answering patient's questions today, he wishes to speak to a geriatric social work professor, to see if patient can have any help as outpatient in regard to his transportation to the dialysis center , a consult for geriatric social work professor was requested . On 10/10/2020 Patient was seen and examined on the medical floor, he is alert and oriented x 3 in no distress, he denies any complaints there is no fever or chills no headache or dizziness no chest pain no shortness of breath no palpitation no cough no nausea or vomiting no abdominal pain no diarrhea no blood in the stools no burning with urination no frequency or urgency and no hematuria, patient was started on dialysis today, we will continue to monitor follow-up in a.m. On 10/11/2020 patient was seen and examined on the medical floor he is alert and oriented 3 in no apparent distress, he is complaining of pain in the right neck site of catheter insertion for dialysis otherwise he denies any fever or chills no headache or dizziness no chest pain no cough no nausea or vomiting no abdominal pain no diarrhea no burning with urination no frequency or urgency and no hematuria. Nurse is notifying vascular surgery of patient or complaint of pain at the site of catheter insertion. On 10/12/2020 Patient was seen and examined on the medical floor, he is alert and oriented x 3 in no distress, he denies any complaints there is no fever or chills no headache or dizziness no chest pain no shortness of breath no palpitation no cough no nausea or vomiting no abdominal pain no diarrhea no blood in the stools no burning with urination no frequency or urgency and no hematuria, at this time will continue with current management will try to increase activity with physical therapy and occupational therapy will assess tomorrow if patient is ready to go home or if he needs to go to a long-term for rehabilitation first. On 10/13/2020 patient was seen and examined on the medical floor he is alert and oriented 3 in no apparent distress he is having dialysis at this time, there is no fever or chills no headache or dizziness no chest pain no shortness of breath no cough no nausea or vomiting no abdominal pain no diarrhea no blood in the stools no burning with urination no frequency or urgency and no hematuria. Planing of generalized weakness, will have physical therapy and occupational therapy assess patient, most likely he will need admission to a long-term for rehab after this hospital admission On 10/14/2020 patient is alert and oriented 3. Patient was started on hemodialysis patient reports minimum improvement with dialysis in regards to lower extremity. Lower extremities do appear improved. At this time patient denies chest pain or shortness breath. Patient denies nausea vomiting or diarrhea. Patient denies any urinary burning or frequency. Patient was evaluated by PT OT recommended subacute rehab upon discharge. On 10/15/2020 patient was seen and examined on the medical floor he is alert and oriented 3 in no distress, patient is quite upset today, he has told the nurse that he was refusing dialysis, clinically he denies any complaints there is no fever or chills no headache or dizziness no chest pain no shortness of breath no cough no nausea or vomiting no abdominal pain no diarrhea no blood in the stools no burning with urination no frequency or urgency and no hematuria. balancing machine set up worker were asked to talk to patient in regard to possibility of discharge with hospice. On 10/16/2020 patient alert and oriented 3. Long discussion held with patient patient is now agreeable to dialysis with possible discharge to rehab next week. Patient to undergo hemodialysis today. At this time patient denies chest pain or shortness of breath. Patient denies nausea vomiting or diarrhea. Patient denies any urinary burning or frequency Objective - Vital Signs Vital signs: Vital Signs Temp 98.1 F 10/16/20 02:45 Pulse 60 10/16/20 07:57 Resp 17 10/16/20 02:45 BP 156/70 10/16/20 07:57 Pulse Ox 98 10/16/20 07:57 Intake & Output 10/15/20 10/16/20 10/16/20 18:59 06:59 18:59 Intake Total 0 118 Output Total 200 400 100 Balance -200 -400 18 Intake: Oral 0 118 Output: Urine 200 400 100 Other: Voiding Method Urinal Urinal - Exam In general patient is alert and oriented 3 in no distress Head normocephalic and atraumatic Neck supple no JVD no goiter Lungs diminished bilaterally no crackles no wheezing Heart regular rate and rhythm S1-S2, no rub or gallop Abdomen is soft nontender nondistended positive bowel sounds no hepatosplenomegaly Extremities +3 pedal edema noted to right side. Left +1. Bilateral spread is noted to feet. Neuro no gross focal neurological deficit - Labs CBC & Chem 7: 10/16/20 08:16 10/16/20 08:16 Labs: Abnormal Lab Results - Last 24 Hours (Table) 10/16/20 10/16/20 Range/Units 08:16 08:16 RBC 3.59 L (4.30-5.90) m/uL Hgb 10.3 L (13.0-17.5) gm/dL Hct 32.3 L (39.0-53.0) % Lymphocytes # 0.6 L (1.0-4.8) k/uL BUN 88 H (9-20) mg/dL Creatinine 3.16 H (0.66-1.25) mg/dL Glucose 101 H (74-99) mg/dL Assessment and Plan Assessment: 1. Shortness breath secondary to acute on chronic systolic CHF exacerbation. BNP elevated at 43,000. Patient started on IV Lasix. Cardiomegaly with diffuse bilateral perihilar reticular opacities compatible with interstitial pulmonary disease. 2. Elevated d-dimer. D-dimer 1.46. Venous Doppler ordered to rule out DVT. VQ scan completed showing low probability of PE 3. Elevated troponins. Cardiology services following. Per cardiology note related to ACS 4. Cellulitis to lower extremities. She started on Rocephin. Infectious disease consulted IV antibiotics DC'd 5. Chronic kidney disease stage III. Creatinine 2.5 and bun 69 this does appear on patient's baseline. Nephrology services following. Dobutamine added. Lasix increased. Lasix drips added per nephrology. Patient transitioned to IV Lasix. Lasix held at this time due to increasing creatinine per nephrology 6. 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 History of COPD 8. Paroxysmal atrial fibrillation. Patient started on eliquis per cardiology services 9. Moderate bilateral fem-pop disease. Ultrasound of arteries completed of lower extremity. Patient was evaluated by vascular surgical services recommendations of floating compression stockings or [place] wrapped bilateral lower extremities. Patient currently refusing. No indications for vascular surgical intervention at this time 10. Hemorrhoids. hydrocortisone suppositories added 11. End-stage renal disease started on hemodialysis during this admission DVT prophylaxis eliquis. GI prophylaxis Protonix Cardiology, nephrology, infectious disease and vascular surgery following
--- NOTE | 2020-10-16 13:45 | PN ---
PROGRESS NOTE The patient is seen for followup for chronic kidney disease with worsening renal failure and started on dialysis this admission for worsening renal function, volume overload, and symptoms of uremia. The patient had refused dialysis yesterday and stated that he did not want to continue with renal replacement therapy. However, he has now decided to continue with renal replacement therapy and he has agreed to continue with dialysis as outpatient as well. PHYSICAL EXAMINATION: On examination today, blood pressure was 156/70, heart rate 60 per minute. He is afebrile. Examination of the heart S1, S2. Examination of the lungs, bilateral breath sounds are heard. Abdomen is soft, nontender. Examination of lower extremities shows edema with chronic skin changes, 2+ edema bilaterally. CORE BLOWER OPERATOR exam grossly intact. LAB: Show sodium 141, potassium 4.0, chloride 102, BUN 88, serum creatinine 3.16, hemoglobin 10.3 g/dL. ASSESSMENT: 1. Acute kidney injury on top of chronic kidney disease with worsening renal function, volume overload, and subtle signs of uremia. Started on dialysis this admission. Currently patient is maintained on a Monday, Monday, Monday schedule. He will be dialyzed today. 2. Volume overload currently improving. 3. Chronic kidney disease, stage 4. Previous creatinine around 2.5. Etiology nephrosclerosis. 4. Bilateral lower extremity cellulitis, somewhat improved. 5. Cardiomyopathy, ejection fraction 30-35% with moderate to severe aortic regurgitation and tricuspid regurgitation. 6. Volume overload slowly improving. PLAN: Hemodialysis today and the patient can be discharged if he is set up for outpatient chair time. MMRADHAL / VINNYN: [id number] /
[2020-10-16] MEDS: HYDROmorphone 0.5 MG/0.5 ML SYRINGE IVP PRN ×2 (14:42→21:05)
[2020-10-16] MEDS: FUROSEMIDE 10 MG/ML 10 ML VIAL IV SCH ×2 (14:48→21:02)
[2020-10-16] MEDS: hydrALAZINE HCL 25 MG TAB PO SCH ×3 (14:49→21:02)
[2020-10-16] MEDS: LEVOTHYROXINE 88 MCG TAB PO SCH (21:02)
[2020-10-16] MEDS: DOCUSATE 100 MG CAP PO SCH (21:02)
[2020-10-16] MEDS: FERROUS SULFATE 325 MG TAB PO SCH (21:02)
[2020-10-17] MEDS: carvediloL 6.25 MG TAB PO SCH ×2 (06:19→16:35)
[2020-10-17] MEDS: PANTOPRAZOLE 40 MG TABLET PO SCH (06:19)
[2020-10-17] MEDS: HYDROmorphone 0.5 MG/0.5 ML SYRINGE IVP PRN ×2 (06:19→12:19)
[2020-10-17] MEDS: FUROSEMIDE 10 MG/ML 10 ML VIAL IV SCH ×2 (09:01→19:59)
[2020-10-17] MEDS: CEPHALEXIN 250 MG CAP PO SCH ×3 (09:01→19:59)
[2020-10-17] MEDS: APIXABAN 2.5 MG TABLET PO SCH ×2 (09:01→19:59)
[2020-10-17] MEDS: allopurinoL 100 MG TAB PO SCH (09:01)
[2020-10-17] MEDS: ESCITALOPRAM 10 MG TAB PO SCH (09:01)
[2020-10-17] MEDS: hydrALAZINE HCL 25 MG TAB PO SCH ×3 (09:01→19:59)
[2020-10-17] MEDS: HYDROCORTISONE SUPPOSITORY 25 MG SUPP RECTAL SCH ×2 (09:02→19:45)
[2020-10-17] MEDS: NYSTATIN 100,000 UNIT/GM POWD 15 GM TOPICAL SCH ×2 (09:02→19:59)
--- NOTE | 2020-10-17 10:05 | P.PN ---
Subjective Progress Note Date: 10/17/20 Principal diagnosis: This is a 80-year-old male seen in consultation because of acute kidney injury from cardiorenal syndrome. He came in with shortness of breath, cellulitis of both legs, significant edema, COPD, known with atrial fibrillation cardiomyopathy with ejection fraction 30%. He has chronic kidney disease, Etiology nephrosclerosis. He was started on dialysis and is doing better. Continues to have significant edema but no shortness of breath eating very well and able to walk. Objective - Vital Signs Vital signs: Vital Signs Temp 98.0 F 10/17/20 08:53 Pulse 64 10/17/20 08:53 Resp 16 10/17/20 08:53 BP 140/76 10/17/20 08:53 Pulse Ox 98 10/17/20 08:53 Intake & Output 10/16/20 10/17/20 10/17/20 18:59 06:59 18:59 Intake Total 598 Output Total 2100 210 Balance -1502 -210 Weight 81.5 kg Intake: Oral 598 Output: Urine 100 210 Hemodialysis 2000 Other: Voiding Method Urinal # Voids 2 Exam is awake alert oriented HEENT exam no JVP neck is supple no facial asymmetry Lungs are significant for bilateral crackles good air entry bilaterally Last chest x-ray on 10/11/2020 showed cardiomegaly Heart sounds are unremarkable for any murmur rub gallop is irregular Abdomen soft nontender Extremity exam 2+ edema Neurologically awake alert oriented generalized weakness - Labs CBC & Chem 7: 10/16/20 08:16 10/16/20 08:16 Assessment and Plan Plan: Impression 1. Acute kidney injury from cardiorenal syndrome, started on dialysis last dialysis yesterday with a permacath 2. 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 3. Anemia secondary to chronic kidney disease hemoglobin was 10.3 4. Bilateral cellulitis of legs. resolved 5. History of atrial fibrillation, COPD, cardiomyopathy. Recommendation 1. patient can be discharged if his outpatient dialysis unit has been informed and there is a scheduled dialysis for him.
[2020-10-17 10:17] LABS: Basophils % (A) 0 %; Eosinophils # (A) 0.2 k/uL (0-0.7); Eosinophils % (A) 3 %; HCT 32.7 % (39.0-53.0); HGB 10.2 gm/dL (13.0-17.5); Hypochromasia Moderate; Lymphocytes # (A) 0.5 k/uL (1.0-4.8); Lymphocytes % (A) 6 %; MCH 28.4 pg (25.0-35.0); MCHC 31.2 g/dL (31.0-37.0); MCV 90.8 fL (80.0-100.0); Mean Platelet Volume 7.8; Monocytes # (A) 0.5 k/uL (0-1.0); Monocytes % (A) 6 %; Neutrophils # (A) 6.8 k/uL (1.3-7.7); Neutrophils % (A) 84 %; Platelet Count 320 k/uL (150-450); RDW 14.6 % (11.5-15.5); WBC 8.1 k/uL (3.8-10.6)
[2020-10-17 10:30] LABS: Albumin 3.6 g/dL (3.5-5.0); Calcium 8.8 mg/dL (8.4-10.2); Total Bilirubin 0.3 mg/dL (0.2-1.3); Total Protein 6.2 g/dL (6.3-8.2)
[2020-10-17] MEDS: polyethylene glycoL 3350 17 GM POWD.PACK PO SCH ×2 (16:34→16:38)
[2020-10-17] MEDS: LEVOTHYROXINE 88 MCG TAB PO SCH (19:59)
[2020-10-17] MEDS: DOCUSATE 100 MG CAP PO SCH (19:59)
[2020-10-17] MEDS: FERROUS SULFATE 325 MG TAB PO SCH (19:59)
[2020-10-18] MEDS: PANTOPRAZOLE 40 MG TABLET PO SCH (06:26)
[2020-10-18] MEDS: carvediloL 6.25 MG TAB PO SCH ×2 (06:26→17:26)
--- NOTE | 2020-10-18 09:01 | P.PN ---
Subjective Progress Note Date: 10/17/20 Sean Lin is an 80-year-old male patient who presented to the ER with complaints of increasing shortness of breath over the past few months. Patient also reports swelling to lower extremities. Patient has a past medical history of A. fib, heart failure, COPD, GERD, GI bleed, hypertension, thyroid disorder. BNP elevated at 42,400. Mildly elevated troponin 0.071 and 0.098. Patient's creatinine 2.59 and bun 69 this does appear on patient's baseline. Patient also elevated d-dimer 1.46. VQ scan ordered due to chronic kidney disease. At that time cardiology services will be consulted. Patient started on IV Lasix. Upon examination feet found cold to touch bilaterally right greater than left with swelling and erythema tender to touch. Will start patient on Rocephin for cellulitis. Will consult vascular surgery due to concerns of arterial disease. Will order venous Doppler to rule out DVT. This time patient denies chest pain. Patient does complain of shortness of breath. Patient denies nausea vomiting or diarrhea. Patient denies any urinary burning or frequency. On 09/26/2020 patient was seen and examined on the telemetry floor he is alert and oriented 3 in no apparent distress he is complaining of pain in both feet he is also complaining of shortness of breath with any activity, otherwise he denies any complaint. There is no fever or chills no headache or dizziness no chest pain, no palpitation no cough no nausea or vomiting no abdominal pain no diarrhea no blood in the stools no burning with urination no frequency or urgency and no hematuria, there is no weakness or numbness in any of the extremities no change in vision speech or gait. D-dimer was elevated at 1.46, patient underwent VQ scan that was low probability for pulmonary embolism, bilateral lower extremity Doppler is still pending, patient also had elevated troponin levels at 0.071, 0.098, 0.092 cardiology are consulted, echocardiogram done patient remains on IV heparin at this time, PTT is therapeutic at 91.9, patient has known history of chronic kidney disease at this time BUN is 74 creatinine 2.33 he was seen in the past by Dr. Rojas, Will place a consult for nephrology for follow-up. On 09/27/2020 patient is alert and oriented 3 resting comfortably in bed. Patient does report improvement with overall shortness of breath. Patient remains on IV Lasix. He was started on eliquis per cardiology services for proximal atrial fibrillation. Arterial ultrasound of the lower extremity is ordered per vascular surgery. At this time patient denies any chest pain or shortness of breath. Patient denies nausea vomiting or diarrhea. Patient denies any urinary burning or frequency. Cardiology, nephrology, infectious disease and vascular surgery are following On 09/28/2020 Patient was seen and examined on the medical floor, he is alert and oriented x 3 in no distress, he denies any complaints there is no fever or chills no headache or dizziness no chest pain no shortness of breath no palpitation no cough no nausea or vomiting no abdominal pain no diarrhea no blood in the stools no burning with urination no frequency or urgency and no hematuria, there is no weakness or numbness in any of the extremities no change in vision speech or gait. Patient is still complaining of severe swelling and erythema and tenderness in his bilateral feet, otherwise he denies any complaints at this time. On 09/29/2020 patient was seen and examined on the medical floor he is alert and oriented 3 in no distress he is complaining of lower extremity pain and swelling otherwise he denies any complaints at this time there is no fever or chills no headache or dizziness no chest pain no shortness of breath no cough no nausea or vomiting no abdominal pain no diarrhea no blood in the stools no burning with urination no frequency or urgency and no hematuria On 09/30/2020 patient is alert and oriented 3 patient is complaining of lower extremity pain and swelling perfusing Chano wraps. Patient also educated on the importance of elevation while in bed. Creatinine 3.01 and bun 81. Patient was started on dobutamine per nephrology services Lasix increased. At this time patient denies chest pain or shortness of breath. Patient denies nausea vomiting or diarrhea. Patient denies any urinary burning or frequency On 10/01/2020 patient was seen and examined on the medical floor, he is alert and oriented 3 he is complaining of lower extremity pain and swelling perfusing Chano wraps. Patient also educated on the importance of elevation while in bed. Creatinine 3.01 and bun 81. Patient was started on dobutamine per nephrology services Lasix increased. At this time patient denies chest pain or shortness of breath. Patient denies nausea vomiting or diarrhea. Patient denies any urinary burning or frequency. He was evaluated by nephrology and was started on insulin drip, patient had arterial study on the lower extremities he will be reevaluated by vascular surgery. On 10/02/2020 patient is alert and oriented 3. Patient has been started on Lasix drip per nephrology remains on dobutamine drip. Weight down from 87.4 kg to 87 kg. Creatinine 3.26 and bun 91. At this time patient denies chest pain or shortness of breath. Patient denies nausea vomiting or diarrhea. Patient denies any urinary burning or frequency On 10/03/2020 patient is alert and oriented 3. He is still complaining of bilateral lower extremity edema and pain in the dorsal aspects of both feet due to severe edema , otherwise he denies any complaints at this time there is no fever or chills no headache or dizziness no chest pain he has mild shortness of breath with activity no shortness of breath at rest no nausea or vomiting no abdominal pain no diarrhea and no urinary symptoms Patient has been started on Lasix drip per nephrology remains on dobutamine drip. Weight down to 85.9 kg. Creatinine 3.26 and bun 91. At this time patient denies chest pain or shortness of breath. Patient denies nausea vomiting or diarrhea. Patient denies any urinary burning or frequency On 10/04/2020 patient is alert and oriented 3. Patient does report improvement with shortness of breath. Weight down from 85.9-82.6 kg. Patient remains on Lasix drip per nephrology. Patient still complaining of bilateral knee pain and patient was reevaluated by vascular surgery continue current medical management no plans for surgical intervention. Patient denies chest pain or shortness breath. Patient denies nausea vomiting or diarrhea. Patient denies any urinary burning or frequency On 10/05/2020 patient was seen and examined on the medical floor he is alert and oriented 3 in no apparent distress, he reports improvement in his shortness of breath and his lower extremity edema, kidney function slightly worse, patient denies any fever or chills no headache or dizziness no chest pain no cough no nausea or vomiting no abdominal pain no diarrhea no burning with urination no frequency or urgency and no hematuria. On 10/06/2020 patient was seen and examined on the medical floor he is alert and oriented 3 in no apparent distress, he is feeling more tired and weak today, kidney function again worse today. patient denies any fever or chills no headache or dizziness no chest pain no cough no nausea or vomiting no abdominal pain no diarrhea no burning with urination no frequency or urgency and no hematuria. Nephrology following at this time Lasix drip was discontinued and patient was started on IV Lasix twice a day Will monitor closely On 10/07/2020 patient is alert and oriented 3. Patient is feeling nauseous today. Patient's creatinine increasing to 3.96. Patient was switched from Lasix drip to IV Lasix yesterday. Per nephrology services IV Lasix will be held due to increasing creatinine area and patient denies chest pain or shortness of breath. Patient denies any urinary burning or frequency On 10/08/2020 patient is alert and oriented 3. Patient reports improvement with nausea. Diuretics were stopped for nephrology yesterday. Edema does appear improved to lower extremities. Patient remains with good urine output. Creatinine 3.94 and bun 141. Per nephrology services continue to hold Lasix due to rising bun and creatinine. This time patient denies chest pain or shortness of breath. Patient denies nausea vomiting or diarrhea. Patient denies any urinary burning or frequency On 10/09/2020 Patient was seen and examined on the medical floor, he is alert and oriented x 3 in no distress, he denies any complaints there is no fever or chills no headache or dizziness no chest pain no shortness of breath no palpitation no cough no nausea or vomiting no abdominal pain no diarrhea no blood in the stools no burning with urination no frequency or urgency and no hematuria, patient was told by nephrology that he will need hemodialysis, he had many questions in that regard, significant amount of time was spent answering patient's questions today, he wishes to speak to a social service technician, to see if patient can have any help as outpatient in regard to his transportation to the dialysis center , a consult for social service technician was requested . On 10/10/2020 Patient was seen and examined on the medical floor, he is alert and oriented x 3 in no distress, he denies any complaints there is no fever or chills no headache or dizziness no chest pain no shortness of breath no palpitation no cough no nausea or vomiting no abdominal pain no diarrhea no blood in the stools no burning with urination no frequency or urgency and no hematuria, patient was started on dialysis today, we will continue to monitor follow-up in a.m. On 10/11/2020 patient was seen and examined on the medical floor he is alert and oriented 3 in no apparent distress, he is complaining of pain in the right neck site of catheter insertion for dialysis otherwise he denies any fever or chills no headache or dizziness no chest pain no cough no nausea or vomiting no abdominal pain no diarrhea no burning with urination no frequency or urgency and no hematuria. Nurse is notifying vascular surgery of patient or complaint of pain at the site of catheter insertion. On 10/12/2020 Patient was seen and examined on the medical floor, he is alert and oriented x 3 in no distress, he denies any complaints there is no fever or chills no headache or dizziness no chest pain no shortness of breath no palpitation no cough no nausea or vomiting no abdominal pain no diarrhea no blood in the stools no burning with urination no frequency or urgency and no hematuria, at this time will continue with current management will try to increase activity with physical therapy and occupational therapy will assess tomorrow if patient is ready to go home or if he needs to go to a fpc for rehabilitation first. On 10/13/2020 patient was seen and examined on the medical floor he is alert and oriented 3 in no apparent distress he is having dialysis at this time, there is no fever or chills no headache or dizziness no chest pain no shortness of breath no cough no nausea or vomiting no abdominal pain no diarrhea no blood in the stools no burning with urination no frequency or urgency and no hematuria. Planing of generalized weakness, will have physical therapy and occupational therapy assess patient, most likely he will need admission to a fpc for rehab after this hospital admission On 10/14/2020 patient is alert and oriented 3. Patient was started on hemodialysis patient reports minimum improvement with dialysis in regards to lower extremity. Lower extremities do appear improved. At this time patient denies chest pain or shortness breath. Patient denies nausea vomiting or diarrhea. Patient denies any urinary burning or frequency. Patient was evaluated by PT OT recommended subacute rehab upon discharge. On 10/15/2020 patient was seen and examined on the medical floor he is alert and oriented 3 in no distress, patient is quite upset today, he has told the nurse that he was refusing dialysis, clinically he denies any complaints there is no fever or chills no headache or dizziness no chest pain no shortness of breath no cough no nausea or vomiting no abdominal pain no diarrhea no blood in the stools no burning with urination no frequency or urgency and no hematuria. overhead worker were asked to talk to patient in regard to possibility of discharge with hospice. On 10/16/2020 patient alert and oriented 3. Long discussion held with patient patient is now agreeable to dialysis with possible discharge to rehab next week. Patient to undergo hemodialysis today. At this time patient denies chest pain or shortness of breath. Patient denies nausea vomiting or diarrhea. Patient denies any urinary burning or frequency. On 10/17/2020 patient was seen and examined on the medical floor he is alert and oriented 3 in no distress, patient is quite upset today, he has told the nurse that he was refusing dialysis, clinically he denies any complaints there is no fever or chills no headache or dizziness no chest pain no shortness of breath no cough no nausea or vomiting no abdominal pain no diarrhea no blood in the stools no burning with urination no frequency or urgency and no hematuria patient is now agreable to hemodialysis, plan to transfer to [facility] on Monday. Objective - Vital Signs Vital signs: Vital Signs Temp 98.0 F 10/17/20 08:53 Pulse 64 10/17/20 08:53 Resp 16 10/17/20 08:53 BP 140/76 10/17/20 08:53 Pulse Ox 98 10/17/20 08:53 Intake & Output 10/16/20 10/17/20 10/17/20 18:59 06:59 18:59 Intake Total 598 Output Total 2100 210 Balance -1502 -210 Weight 81.5 kg Intake: Oral 598 Output: Urine 100 210 Hemodialysis 2000 Other: Voiding Method Urinal # Voids 2 - Exam In general patient is alert and oriented 3 in no distress Head normocephalic and atraumatic Neck supple no JVD no goiter Lungs diminished bilaterally no crackles no wheezing Heart regular rate and rhythm S1-S2, no rub or gallop Abdomen is soft nontender nondistended positive bowel sounds no hepatosplenomegaly Extremities +3 pedal edema noted to right side. Left +1. Bilateral spread is noted to feet. Neuro no gross focal neurological deficit - Labs CBC & Chem 7: 10/17/20 09:53 10/17/20 09:53 Labs: Abnormal Lab Results - Last 24 Hours (Table) 10/16/20 Range/Units 08:16 BUN 88 H (9-20) mg/dL Creatinine 3.16 H (0.66-1.25) mg/dL Glucose 101 H (74-99) mg/dL Assessment and Plan Assessment: 1. Shortness breath secondary to acute on chronic systolic CHF exacerbation. BNP elevated at 43,000. Patient started on IV Lasix. Cardiomegaly with diffuse bilateral perihilar reticular opacities compatible with interstitial pulmonary disease. 2. Elevated d-dimer. D-dimer 1.46. Venous Doppler ordered to rule out DVT. VQ scan completed showing low probability of PE 3. Elevated troponins. Cardiology services following. Per cardiology note related to ACS 4. Cellulitis to lower extremities. She started on Rocephin. Infectious disease consulted IV antibiotics DC'd 5. Chronic kidney disease stage III. Creatinine 2.5 and bun 69 this does appear on patient's baseline. Nephrology services following. Dobutamine added. Lasix increased. Lasix drips added per nephrology. Patient transitioned to IV Lasix. Lasix held at this time due to increasing creatinine per nephrology 6. 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 History of COPD 8. Paroxysmal atrial fibrillation. Patient started on eliquis per cardiology services 9. Moderate bilateral fem-pop disease. Ultrasound of arteries completed of lower extremity. Patient was evaluated by vascular surgical services recommendations of floating compression stockings or Chano wrapped bilateral lower extremities. Patient currently refusing. No indications for vascular surgical intervention at this time 10. Hemorrhoids. hydrocortisone suppositories added 11. End-stage renal disease started on hemodialysis during this admission DVT prophylaxis eliquis. GI prophylaxis Protonix Cardiology, nephrology, infectious disease and vascular surgery following
[2020-10-18] MEDS: polyethylene glycoL 3350 17 GM POWD.PACK PO SCH (09:13)
[2020-10-18] MEDS: HYDROCORTISONE SUPPOSITORY 25 MG SUPP RECTAL SCH ×2 (09:13→19:38)
[2020-10-18] MEDS: hydrALAZINE HCL 25 MG TAB PO SCH ×3 (09:13→19:42)
[2020-10-18] MEDS: FUROSEMIDE 10 MG/ML 10 ML VIAL IV SCH ×2 (09:13→19:42)
[2020-10-18] MEDS: allopurinoL 100 MG TAB PO SCH (09:14)
[2020-10-18] MEDS: APIXABAN 2.5 MG TABLET PO SCH ×2 (09:14→19:42)
[2020-10-18] MEDS: CEPHALEXIN 250 MG CAP PO SCH ×2 (09:14→16:35)
[2020-10-18] MEDS: ESCITALOPRAM 10 MG TAB PO SCH ×2 (09:14→09:15)
[2020-10-18] MEDS: HYDROmorphone 0.5 MG/0.5 ML SYRINGE IVP PRN (09:35)
--- NOTE | 2020-10-18 10:40 | P.PN ---
Subjective Progress Note Date: 10/18/20 Principal diagnosis: This is a 80-year-old male seen in consultation because of acute kidney injury from cardiorenal syndrome. He was started on dialysis, currently on Monday schedule He came in with shortness of breath, cellulitis of both legs, significant edema, COPD, known with atrial fibrillation cardiomyopathy with ejection fraction 30%. He has chronic kidney disease, Etiology nephrosclerosis. He was started on dialysis and is doing better. Continues to have significant edema but no shortness of breath eating very well and able to walk. Objective - Vital Signs Vital signs: Vital Signs Temp 98.3 F 10/18/20 03:42 Pulse 60 10/18/20 03:42 Resp 16 10/18/20 03:42 BP 154/70 10/18/20 03:42 Pulse Ox 99 10/18/20 03:42 Intake & Output 10/17/20 10/18/20 10/18/20 18:59 06:59 18:59 Intake Total 720 360 Output Total 210 100 Balance 720 -210 260 Weight 83.4 kg Intake: Oral 720 360 Output: Urine 210 100 Other: Voiding Method Urinal Urinal Examination is awake alert oriented comfortable he looks weak but says he is able to walk with the help of walker without dizziness HEENT exam no JVP neck is supple no facial asymmetry Lungs are clear to auscultation fair air entry bilaterally Heart sounds unremarkable for any murmur rub gallop Abdomen soft nontender Extremity exam was mild edema Neurologically awake alert oriented - Labs CBC & Chem 7: 10/17/20 09:53 10/17/20 09:53 Assessment and Plan Plan: Impression 1. Acute kidney injury from cardiorenal syndrome, started on dialysis last dialysis yesterday with a permacath 2. 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 3. Anemia secondary to chronic kidney disease hemoglobin was 10.3 4. Bilateral cellulitis of legs. resolved 5. History of atrial fibrillation, COPD, cardiomyopathy. Recommendation 1. patient can be discharged if his outpatient dialysis unit has been informed and there is a scheduled dialysis for him.
[2020-10-18] MEDS: DARBEPOETIN ALFA 40 MCG/0.4 ML SYRINGE SQ SCH (11:48)
--- NOTE | 2020-10-18 14:43 | P.PN ---
Subjective Progress Note Date: 10/18/20 Sean Lin is an 80-year-old male patient who presented to the ER with complaints of increasing shortness of breath over the past few months. Patient also reports swelling to lower extremities. Patient has a past medical history of A. fib, heart failure, COPD, GERD, GI bleed, hypertension, thyroid disorder. BNP elevated at 42,400. Mildly elevated troponin 0.071 and 0.098. Patient's creatinine 2.59 and bun 69 this does appear on patient's baseline. Patient also elevated d-dimer 1.46. VQ scan ordered due to chronic kidney disease. At that time cardiology services will be consulted. Patient started on IV Lasix. Upon examination feet found cold to touch bilaterally right greater than left with swelling and erythema tender to touch. Will start patient on Rocephin for cellulitis. Will consult vascular surgery due to concerns of arterial disease. Will order venous Doppler to rule out DVT. This time patient denies chest pain. Patient does complain of shortness of breath. Patient denies nausea vomiting or diarrhea. Patient denies any urinary burning or frequency. On 09/26/2020 patient was seen and examined on the telemetry floor he is alert and oriented 3 in no apparent distress he is complaining of pain in both feet he is also complaining of shortness of breath with any activity, otherwise he denies any complaint. There is no fever or chills no headache or dizziness no chest pain, no palpitation no cough no nausea or vomiting no abdominal pain no diarrhea no blood in the stools no burning with urination no frequency or urgency and no hematuria, there is no weakness or numbness in any of the extremities no change in vision speech or gait. D-dimer was elevated at 1.46, patient underwent VQ scan that was low probability for pulmonary embolism, bilateral lower extremity Doppler is still pending, patient also had elevated troponin levels at 0.071, 0.098, 0.092 cardiology are consulted, echocardiogram done patient remains on IV heparin at this time, PTT is therapeutic at 91.9, patient has known history of chronic kidney disease at this time BUN is 74 creatinine 2.33 he was seen in the past by Dr. Rojas, Will place a consult for nephrology for follow-up. On 09/27/2020 patient is alert and oriented 3 resting comfortably in bed. Patient does report improvement with overall shortness of breath. Patient remains on IV Lasix. He was started on eliquis per cardiology services for proximal atrial fibrillation. Arterial ultrasound of the lower extremity is ordered per vascular surgery. At this time patient denies any chest pain or shortness of breath. Patient denies nausea vomiting or diarrhea. Patient denies any urinary burning or frequency. Cardiology, nephrology, infectious disease and vascular surgery are following On 09/28/2020 Patient was seen and examined on the medical floor, he is alert and oriented x 3 in no distress, he denies any complaints there is no fever or chills no headache or dizziness no chest pain no shortness of breath no palpitation no cough no nausea or vomiting no abdominal pain no diarrhea no blood in the stools no burning with urination no frequency or urgency and no hematuria, there is no weakness or numbness in any of the extremities no change in vision speech or gait. Patient is still complaining of severe swelling and erythema and tenderness in his bilateral feet, otherwise he denies any complaints at this time. On 09/29/2020 patient was seen and examined on the medical floor he is alert and oriented 3 in no distress he is complaining of lower extremity pain and swelling otherwise he denies any complaints at this time there is no fever or chills no headache or dizziness no chest pain no shortness of breath no cough no nausea or vomiting no abdominal pain no diarrhea no blood in the stools no burning with urination no frequency or urgency and no hematuria On 09/30/2020 patient is alert and oriented 3 patient is complaining of lower extremity pain and swelling perfusing Chano wraps. Patient also educated on the importance of elevation while in bed. Creatinine 3.01 and bun 81. Patient was started on dobutamine per nephrology services Lasix increased. At this time patient denies chest pain or shortness of breath. Patient denies nausea vomiting or diarrhea. Patient denies any urinary burning or frequency On 10/01/2020 patient was seen and examined on the medical floor, he is alert and oriented 3 he is complaining of lower extremity pain and swelling perfusing Chano wraps. Patient also educated on the importance of elevation while in bed. Creatinine 3.01 and bun 81. Patient was started on dobutamine per nephrology services Lasix increased. At this time patient denies chest pain or shortness of breath. Patient denies nausea vomiting or diarrhea. Patient denies any urinary burning or frequency. He was evaluated by nephrology and was started on insulin drip, patient had arterial study on the lower extremities he will be reevaluated by vascular surgery. On 10/02/2020 patient is alert and oriented 3. Patient has been started on Lasix drip per nephrology remains on dobutamine drip. Weight down from 87.4 kg to 87 kg. Creatinine 3.26 and bun 91. At this time patient denies chest pain or shortness of breath. Patient denies nausea vomiting or diarrhea. Patient denies any urinary burning or frequency On 10/03/2020 patient is alert and oriented 3. He is still complaining of bilateral lower extremity edema and pain in the dorsal aspects of both feet due to severe edema , otherwise he denies any complaints at this time there is no fever or chills no headache or dizziness no chest pain he has mild shortness of breath with activity no shortness of breath at rest no nausea or vomiting no abdominal pain no diarrhea and no urinary symptoms Patient has been started on Lasix drip per nephrology remains on dobutamine drip. Weight down to 85.9 kg. Creatinine 3.26 and bun 91. At this time patient denies chest pain or shortness of breath. Patient denies nausea vomiting or diarrhea. Patient denies any urinary burning or frequency On 10/04/2020 patient is alert and oriented 3. Patient does report improvement with shortness of breath. Weight down from 85.9-82.6 kg. Patient remains on Lasix drip per nephrology. Patient still complaining of bilateral knee pain and patient was reevaluated by vascular surgery continue current medical management no plans for surgical intervention. Patient denies chest pain or shortness breath. Patient denies nausea vomiting or diarrhea. Patient denies any urinary burning or frequency On 10/05/2020 patient was seen and examined on the medical floor he is alert and oriented 3 in no apparent distress, he reports improvement in his shortness of breath and his lower extremity edema, kidney function slightly worse, patient denies any fever or chills no headache or dizziness no chest pain no cough no nausea or vomiting no abdominal pain no diarrhea no burning with urination no frequency or urgency and no hematuria. On 10/06/2020 patient was seen and examined on the medical floor he is alert and oriented 3 in no apparent distress, he is feeling more tired and weak today, kidney function again worse today. patient denies any fever or chills no headache or dizziness no chest pain no cough no nausea or vomiting no abdominal pain no diarrhea no burning with urination no frequency or urgency and no hematuria. Nephrology following at this time Lasix drip was discontinued and patient was started on IV Lasix twice a day Will monitor closely On 10/07/2020 patient is alert and oriented 3. Patient is feeling nauseous today. Patient's creatinine increasing to 3.96. Patient was switched from Lasix drip to IV Lasix yesterday. Per nephrology services IV Lasix will be held due to increasing creatinine area and patient denies chest pain or shortness of breath. Patient denies any urinary burning or frequency On 10/08/2020 patient is alert and oriented 3. Patient reports improvement with nausea. Diuretics were stopped for nephrology yesterday. Edema does appear improved to lower extremities. Patient remains with good urine output. Creatinine 3.94 and bun 141. Per nephrology services continue to hold Lasix due to rising bun and creatinine. This time patient denies chest pain or shortness of breath. Patient denies nausea vomiting or diarrhea. Patient denies any urinary burning or frequency On 10/09/2020 Patient was seen and examined on the medical floor, he is alert and oriented x 3 in no distress, he denies any complaints there is no fever or chills no headache or dizziness no chest pain no shortness of breath no palpitation no cough no nausea or vomiting no abdominal pain no diarrhea no blood in the stools no burning with urination no frequency or urgency and no hematuria, patient was told by nephrology that he will need hemodialysis, he had many questions in that regard, significant amount of time was spent answering patient's questions today, he wishes to speak to a high school social science teacher, to see if patient can have any help as outpatient in regard to his transportation to the dialysis center , a consult for high school social science teacher was requested . On 10/10/2020 Patient was seen and examined on the medical floor, he is alert and oriented x 3 in no distress, he denies any complaints there is no fever or chills no headache or dizziness no chest pain no shortness of breath no palpitation no cough no nausea or vomiting no abdominal pain no diarrhea no blood in the stools no burning with urination no frequency or urgency and no hematuria, patient was started on dialysis today, we will continue to monitor follow-up in a.m. On 10/11/2020 patient was seen and examined on the medical floor he is alert and oriented 3 in no apparent distress, he is complaining of pain in the right neck site of catheter insertion for dialysis otherwise he denies any fever or chills no headache or dizziness no chest pain no cough no nausea or vomiting no abdominal pain no diarrhea no burning with urination no frequency or urgency and no hematuria. Nurse is notifying vascular surgery of patient or complaint of pain at the site of catheter insertion. On 10/12/2020 Patient was seen and examined on the medical floor, he is alert and oriented x 3 in no distress, he denies any complaints there is no fever or chills no headache or dizziness no chest pain no shortness of breath no palpitation no cough no nausea or vomiting no abdominal pain no diarrhea no blood in the stools no burning with urination no frequency or urgency and no hematuria, at this time will continue with current management will try to increase activity with physical therapy and occupational therapy will assess tomorrow if patient is ready to go home or if he needs to go to a group home for rehabilitation first. On 10/13/2020 patient was seen and examined on the medical floor he is alert and oriented 3 in no apparent distress he is having dialysis at this time, there is no fever or chills no headache or dizziness no chest pain no shortness of breath no cough no nausea or vomiting no abdominal pain no diarrhea no blood in the stools no burning with urination no frequency or urgency and no hematuria. Planing of generalized weakness, will have physical therapy and occupational therapy assess patient, most likely he will need admission to a group home for rehab after this hospital admission On 10/14/2020 patient is alert and oriented 3. Patient was started on hemodialysis patient reports minimum improvement with dialysis in regards to lower extremity. Lower extremities do appear improved. At this time patient denies chest pain or shortness breath. Patient denies nausea vomiting or diarrhea. Patient denies any urinary burning or frequency. Patient was evaluated by PT OT recommended subacute rehab upon discharge. On 10/15/2020 patient was seen and examined on the medical floor he is alert and oriented 3 in no distress, patient is quite upset today, he has told the nurse that he was refusing dialysis, clinically he denies any complaints there is no fever or chills no headache or dizziness no chest pain no shortness of breath no cough no nausea or vomiting no abdominal pain no diarrhea no blood in the stools no burning with urination no frequency or urgency and no hematuria. 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 On 10/16/2020 patient alert and oriented 3. Long discussion held with patient patient is now agreeable to dialysis with possible discharge to rehab next week. Patient to undergo hemodialysis today. At this time patient denies chest pain or shortness of breath. Patient denies nausea vomiting or diarrhea. Patient denies any urinary burning or frequency. On 10/17/2020 patient was seen and examined on the medical floor he is alert and oriented 3 in no distress, patient is quite upset today, he has told the nurse that he was refusing dialysis, clinically he denies any complaints there is no fever or chills no headache or dizziness no chest pain no shortness of breath no cough no nausea or vomiting no abdominal pain no diarrhea no blood in the stools no burning with urination no frequency or urgency and no hematuria patient is now agreable to hemodialysis, plan to transfer to [facility] on Monday. On 10/18/2020 Patient was seen and examined on the medical floor, he is alert and oriented x 3 in no distress, he denies any complaints there is no fever or chills no headache or dizziness no chest pain no shortness of breath no palpitation no cough no nausea or vomiting no abdominal pain no diarrhea no blood in the stools no burning with urination no frequency or urgency and no hematuria, patient refused lab this morning, otherwise no complaints, plan is to transfer to [facility] tomorrow. Objective - Vital Signs Vital signs: Vital Signs Temp 98.3 F 10/18/20 03:42 Pulse 60 10/18/20 03:42 Resp 16 10/18/20 03:42 BP 154/70 10/18/20 03:42 Pulse Ox 99 10/18/20 03:42 Intake & Output 10/17/20 10/18/20 10/18/20 18:59 06:59 18:59 Intake Total 720 Output Total 210 Balance 720 -210 Weight 83.4 kg Intake: Oral 720 Output: Urine 210 Other: Voiding Method Urinal Urinal - Exam In general patient is alert and oriented 3 in no distress Head normocephalic and atraumatic Neck supple no JVD no goiter Lungs diminished bilaterally no crackles no wheezing Heart regular rate and rhythm S1-S2, no rub or gallop Abdomen is soft nontender nondistended positive bowel sounds no hepatosplenomegaly Extremities +3 pedal edema noted to right side. Left +1. Bilateral spread is noted to feet. Neuro no gross focal neurological deficit - Labs CBC & Chem 7: 10/17/20 09:53 10/17/20 09:53 Labs: Abnormal Lab Results - Last 24 Hours (Table) 10/17/20 10/17/20 Range/Units 09:53 09:53 RBC 3.60 L (4.30-5.90) m/uL Hgb 10.2 L (13.0-17.5) gm/dL Hct 32.7 L (39.0-53.0) % Lymphocytes # 0.5 L (1.0-4.8) k/uL BUN 67 H (9-20) mg/dL Creatinine 2.51 H (0.66-1.25) mg/dL Glucose 163 H (74-99) mg/dL Total Protein 6.2 L (6.3-8.2) g/dL Assessment and Plan Assessment: 1. Shortness breath secondary to acute on chronic systolic CHF exacerbation. BNP elevated at 43,000. Patient started on IV Lasix. Cardiomegaly with diffuse bilateral perihilar reticular opacities compatible with interstitial pulmonary disease. 2. Elevated d-dimer. D-dimer 1.46. Venous Doppler ordered to rule out DVT. VQ scan completed showing low probability of PE 3. Elevated troponins. Cardiology services following. Per cardiology note related to ACS 4. Cellulitis to lower extremities. She started on Rocephin. Infectious disease consulted IV antibiotics DC'd 5. Chronic kidney disease stage III. Creatinine 2.5 and bun 69 this does appear on patient's baseline. Nephrology services following. Dobutamine added. Lasix increased. Lasix drips added per nephrology. Patient transitioned to IV Lasix. Lasix held at this time due to increasing creatinine per nephrology 6. 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 History of COPD 8. Paroxysmal atrial fibrillation. Patient started on eliquis per cardiology services 9. Moderate bilateral fem-pop disease. Ultrasound of arteries completed of lower extremity. Patient was evaluated by vascular surgical services recommendations of floating compression stockings or Chano wrapped bilateral lower extremities. Patient currently refusing. No indications for vascular surgical intervention at this time 10. Hemorrhoids. hydrocortisone suppositories added 11. End-stage renal disease started on hemodialysis during this admission DVT prophylaxis eliquis. GI prophylaxis Protonix Cardiology, nephrology, infectious disease and vascular surgery following
[2020-10-18] MEDS: FERROUS SULFATE 325 MG TAB PO SCH (19:42)
[2020-10-18] MEDS: DOCUSATE 100 MG CAP PO SCH (19:42)
[2020-10-18] MEDS: LEVOTHYROXINE 88 MCG TAB PO SCH (19:42)
[2020-10-18] MEDS: HYDROcodone/APAP 5-325MG 1 EACH TAB PO PRN (23:56)
[2020-10-19] MEDS: carvediloL 6.25 MG TAB PO SCH (06:21)
[2020-10-19] MEDS: PANTOPRAZOLE 40 MG TABLET PO SCH (06:21)
[2020-10-19] MEDS: HYDROCORTISONE SUPPOSITORY 25 MG SUPP RECTAL SCH (07:31)
[2020-10-19] MEDS: polyethylene glycoL 3350 17 GM POWD.PACK PO SCH (07:32)
[2020-10-19] MEDS: FUROSEMIDE 10 MG/ML 10 ML VIAL IV SCH (08:22)
[2020-10-19] MEDS: allopurinoL 100 MG TAB PO SCH (08:22)
[2020-10-19] MEDS: APIXABAN 2.5 MG TABLET PO SCH (08:22)
[2020-10-19] MEDS: ESCITALOPRAM 10 MG TAB PO SCH (08:22)
[2020-10-19] MEDS: hydrALAZINE HCL 25 MG TAB PO SCH (08:22)
[2020-10-19 11:16] VITALS: RESP 18
--- NOTE | 2020-10-19 15:24 | PN ---
PROGRESS NOTE Patient is seen for followup for acute on top of chronic renal failure, started on dialysis this admission. This morning patient is very pleasant. He is comfortable. Denies any significant complaints. PHYSICAL EXAMINATION: Blood pressure was 135/52, heart rate 61 per minute, he is afebrile. Examination of the heart S1, S2. Examination of the lungs, bilateral breath sounds are heard. Abdomen is soft, nontender. Examination of lower extremities shows edema 2+ bilaterally which is currently improved. [employer] exam grossly intact. LAB: Show sodium 141, potassium 4.0, chloride 105, BUN 67, creatinine 2.5, hemoglobin 10.2 g/dL. ASSESSMENT: 1. Acute kidney injury currently dialysis dependent. The patient will continue with outpatient dialysis on a Monday, Monday, Monday schedule. 2. Chronic kidney disease, stage 3 to 4. Baseline creatinine about 2.6. 3. Anemia of chronic disease. 4. Bilateral cellulitis of the legs, currently resolved. 5. History of atrial fibrillation. 6. History of cardiomyopathy. PLAN: Hemodialysis today and patient will follow up as an outpatient for dialysis on a Monday, Monday, Monday schedule. MMODL / IJN: [id number] /
[2020-10-19] MEDS: HYDROcodone/APAP 5-325MG 1 EACH TAB PO PRN (17:03)
[2020-10-19 17:58] VITALS: BP 146/72; PULSE 64; TEMP 98
--- NOTE | 2020-10-21 12:15 | P.DS ---
Providers Date of admission: 09/26/20 10:05 Expected date of discharge: 10/19/20 Attending physician: Alexandra Mitchell Consults: 09/26/20 09:32 Consult Physician Routine Consulting Provider: Stef Rojas Consult Reason/Comments: Chronic kidney disease Do you want consulting provider notified?: Yes 09/26/20 09:35 Consult Physician Routine Consulting Provider: Naya Paiz Consult Reason/Comments: Lower extremity cellulitis Do you want consulting provider notified?: Yes 10/09/20 09:07 Consult Physician Routine Consulting Provider: Aric Henriquez Consult Reason/Comments: Permacath insertion for dialysis Do you want consulting provider notified?: Yes Primary care physician: Alexandra Mitchell [facility] Course: Diagnosis on discharge: 1. Shortness breath secondary to acute on chronic systolic CHF exacerbation. BNP elevated at 43,000. Patient started on IV Lasix. Cardiomegaly with diffuse bilateral perihilar reticular opacities compatible with interstitial pulmonary disease. 2. Elevated d-dimer. D-dimer 1.46. Venous Doppler ordered to rule out DVT. VQ scan completed showing low probability of PE 3. Elevated troponins. Cardiology services following. Per cardiology note related to ACS 4. Cellulitis to lower extremities. She started on Rocephin. Infectious disease consulted IV antibiotics DC'd 5. Chronic kidney disease stage III. Creatinine 2.5 and bun 69 this does appear on patient's baseline. Nephrology services following. Dobutamine added. Lasix increased. Lasix drips added per nephrology. Patient transitioned to IV Lasix. Lasix held at this time due to increasing creatinine per nephrology 6. 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 History of COPD 8. Paroxysmal atrial fibrillation. Patient started on eliquis per cardiology services 9. Moderate bilateral fem-pop disease. Ultrasound of arteries completed of lower extremity. Patient was evaluated by vascular surgical services recommendations of floating compression stockings or Chano wrapped bilateral lower extremities. Patient currently refusing. No indications for vascular surgical intervention at this time 10. Hemorrhoids. hydrocortisone suppositories added 11. End-stage renal disease started on hemodialysis during this admission Hospital course: On 10/01/2020 patient was seen and examined on the medical floor, he is alert and oriented 3 he is complaining of lower extremity pain and swelling perfusing Chano wraps. Patient also educated on the importance of elevation while in bed. Creatinine 3.01 and bun 81. Patient was started on dobutamine per nephrology services Lasix increased. At this time patient denies chest pain or shortness of breath. Patient denies nausea vomiting or diarrhea. Patient denies any urinary burning or frequency. He was evaluated by nephrology and was started on insulin drip, patient had arterial study on the lower extremities he will be reevaluated by vascular surgery. On 10/02/2020 patient is alert and oriented 3. Patient has been started on Lasix drip per nephrology remains on dobutamine drip. Weight down from 87.4 kg to 87 kg. Creatinine 3.26 and bun 91. At this time patient denies chest pain or shortness of breath. Patient denies nausea vomiting or diarrhea. Patient denies any urinary burning or frequency On 10/03/2020 patient is alert and oriented 3. He is still complaining of bilateral lower extremity edema and pain in the dorsal aspects of both feet due to severe edema , otherwise he denies any complaints at this time there is no fever or chills no headache or dizziness no chest pain he has mild shortness of breath with activity no shortness of breath at rest no nausea or vomiting no abdominal pain no diarrhea and no urinary symptoms Patient has been started on Lasix drip per nephrology remains on dobutamine drip. Weight down to 85.9 kg. Creatinine 3.26 and bun 91. At this time patient denies chest pain or shortness of breath. Patient denies nausea vomiting or diarrhea. Patient denies any urinary burning or frequency On 10/04/2020 patient is alert and oriented 3. Patient does report improvement with shortness of breath. Weight down from 85.9-82.6 kg. Patient remains on Lasix drip per nephrology. Patient still complaining of bilateral knee pain and patient was reevaluated by vascular surgery continue current medical management no plans for surgical intervention. Patient denies chest pain or shortness breath. Patient denies nausea vomiting or diarrhea. Patient denies any urinary burning or frequency On 10/05/2020 patient was seen and examined on the medical floor he is alert and oriented 3 in no apparent distress, he reports improvement in his shortness of breath and his lower extremity edema, kidney function slightly worse, patient denies any fever or chills no headache or dizziness no chest pain no cough no nausea or vomiting no abdominal pain no diarrhea no burning with urination no frequency or urgency and no hematuria. On 10/06/2020 patient was seen and examined on the medical floor he is alert and oriented 3 in no apparent distress, he is feeling more tired and weak today, kidney function again worse today. patient denies any fever or chills no headache or dizziness no chest pain no cough no nausea or vomiting no abdominal pain no diarrhea no burning with urination no frequency or urgency and no hematuria. Nephrology following at this time Lasix drip was discontinued and patient was started on IV Lasix twice a day Will monitor closely On 10/07/2020 patient is alert and oriented 3. Patient is feeling nauseous today. Patient's creatinine increasing to 3.96. Patient was switched from Lasix drip to IV Lasix yesterday. Per nephrology services IV Lasix will be held due to increasing creatinine area and patient denies chest pain or shortness of breath. Patient denies any urinary burning or frequency On 10/08/2020 patient is alert and oriented 3. Patient reports improvement with nausea. Diuretics were stopped for nephrology yesterday. Edema does appear improved to lower extremities. Patient remains with good urine output. Creatinine 3.94 and bun 141. Per nephrology services continue to hold Lasix due to rising bun and creatinine. This time patient denies chest pain or shortness of breath. Patient denies nausea vomiting or diarrhea. Patient denies any urinary burning or frequency On 10/09/2020 Patient was seen and examined on the medical floor, he is alert and oriented x 3 in no distress, he denies any complaints there is no fever or chills no headache or dizziness no chest pain no shortness of breath no palpitation no cough no nausea or vomiting no abdominal pain no diarrhea no blood in the stools no burning with urination no frequency or urgency and no hematuria, patient was told by nephrology that he will need hemodialysis, he had many questions in that regard, significant amount of time was spent answering patient's questions today, he wishes to speak to a high school social science teacher, to see if patient can have any help as outpatient in regard to his transportation to the dialysis center , a consult for high school social science teacher was requested . On 10/10/2020 Patient was seen and examined on the medical floor, he is alert and oriented x 3 in no distress, he denies any complaints there is no fever or chills no headache or dizziness no chest pain no shortness of breath no palpitation no cough no nausea or vomiting no abdominal pain no diarrhea no blood in the stools no burning with urination no frequency or urgency and no hematuria, patient was started on dialysis today, we will continue to monitor follow-up in a.m. On 10/11/2020 patient was seen and examined on the medical floor he is alert and oriented 3 in no apparent distress, he is complaining of pain in the right neck site of catheter insertion for dialysis otherwise he denies any fever or chills no headache or dizziness no chest pain no cough no nausea or vomiting no abdominal pain no diarrhea no burning with urination no frequency or urgency and no hematuria. Nurse is notifying vascular surgery of patient or complaint of pain at the site of catheter insertion. On 10/12/2020 Patient was seen and examined on the medical floor, he is alert and oriented x 3 in no distress, he denies any complaints there is no fever or chills no headache or dizziness no chest pain no shortness of breath no palpitation no cough no nausea or vomiting no abdominal pain no diarrhea no blood in the stools no burning with urination no frequency or urgency and no hematuria, at this time will continue with current management will try to increase activity with physical therapy and occupational therapy will assess molly orrow if patient is ready to go home or if he needs to go to a alf for rehabilitation first. On 10/13/2020 patient was seen and examined on the medical floor he is alert and oriented 3 in no apparent distress he is having dialysis at this time, there is no fever or chills no headache or dizziness no chest pain no shortness of breath no cough no nausea or vomiting no abdominal pain no diarrhea no blood in the stools no burning with urination no frequency or urgency and no hematuria. Planing of generalized weakness, will have physical therapy and occupational therapy assess patient, most likely he will need admission to a alf for rehab after this hospital admission On 10/14/2020 patient is alert and oriented 3. Patient was started on hemodialysis patient reports minimum improvement with dialysis in regards to lower extremity. Lower extremities do appear improved. At this time patient denies chest pain or shortness breath. Patient denies nausea vomiting or diarr hea. Patient denies any urinary burning or frequency. Patient was evaluated by PT OT recommended subacute rehab upon discharge. On 10/15/2020 patient was seen and examined on the medical floor he is alert and oriented 3 in no distress, patient is quite upset today, he has told the nurse that he was refusing dialysis, clinically he denies any complaints there is no fever or chills no headache or dizziness no chest pain no shortness of breath no cough no nausea or vomiting no abdominal pain no diarrhea no blood in the stools no burning with urination no frequency or urgency and no hematuria. fruit farmworker were asked to talk to patient in regard to possibility of discharge with hospice. On 10/16/2020 patient alert and oriented 3. Long discussion held with patient patient is now agreeable to dialysis with possible discharge to rehab next week. Patient to undergo hemodialysis today. At this time patient denies chest pain or shortness of breath. Patient denies nausea vomiting or diarrhea. Patient denies any urinary burning or frequency. On 10/17/2020 patient was seen and examined on the medical floor he is alert and oriented 3 in no distress, patient is quite upset today, he has told the nurse that he was refusing dialysis, clinically he denies any complaints there is no fever or chills no headache or dizziness no chest pain no shortness of breath no cough no nausea or vomiting no abdominal pain no diarrhea no blood in the stools no burning with urination no frequency or urgency and no hematuria patient is now agreable to hemodialysis, plan to transfer to [facility] on Monday. On 10/18/2020 Patient was seen and examined on the medical floor, he is alert and oriented x 3 in no distress, he denies any complaints there is no fever or chills no headache or dizziness no chest pain no shortness of breath no palpitation no cough no nausea or vomiting no abdominal pain no diarrhea no blood in the stools no burning with urination no frequency or urgency and no h ematuria, patient refused lab this morning, otherwise no complaints, plan is to transfer to [facility] tomorrow. On 10/19/2020 patient has been cleared for discharge home. Patient advised that he'll need follow-up with consulting providers. Patient arranged for outpatient hemodialysis. This time patient denies chest pain or shortness breath. Patient denies nausea vomiting or diarrhea. Patient denies any urinary burning or frequency Patient Condition at Discharge: Stable Plan - Discharge Summary Discharge Rx Participant: No New Discharge Prescriptions: New hydrALAZINE HCL [Apresoline] 25 mg PO TID tab Darbepoetin Delmar [Aranesp] 40 mcg SQ Q7D syringe Furosemide [Lasix] 40 mg PO BID 30 Days #60 tablet Escitalopram [Lexapro] 10 mg PO DAILY tab HYDROcodone/APAP 5-325MG [Freedom 5-325] 1 each PO Q6HR PRN tab PRN Reason: Pain Albuterol Inhaler [Ventolin Hfa Inhaler] 2 puff INHALATION RT-Q4H PRN puff PRN Reason: Shortness Of Breath carvediloL [Coreg] 12.5 mg PO AC-BID tab Apixaban [Eliquis] 2.5 mg PO BID tablet Ferrous Sulfate [Iron (65 MG Elemental)] 325 mg PO HS tab polyethylene glycoL 3350 [Miralax] 17 gm PO DAILY powd.pack Continue Multivitamin [Men's Multi-Vitamin] 1 tab PO HS Levothyroxine Sodium [Synthroid] 88 mcg PO HS Losartan [Cozaar] 25 mg PO HS tab Docusate [Colace] 100 mg PO HS Allopurinol [Zyloprim] 100 mg PO DAILY Discontinued carvediloL [Coreg] 6.25 mg PO BID Furosemide [Lasix] 40 mg PO HS Torsemide [Demadex] 20 mg PO DAILY PRN PRN Reason: Edema Iron 27 Mg 27 mg PO HS Discharge Medication List Multivitamin [Men's Multi-Vitamin] 1 tab PO HS 12/13/14 [History] Levothyroxine Sodium [Synthroid] 88 mcg PO HS 08/30/19 [History] Losartan [Cozaar] 25 mg PO HS tab 10/02/19 [Rx] Docusate [Colace] 100 mg PO HS 03/18/20 [History] Allopurinol [Zyloprim] 100 mg PO DAILY 09/25/20 [History] Albuterol Inhaler [Ventolin Hfa Inhaler] 2 puff INHALATION RT-Q4H PRN puff 10/19/20 [Rx] Apixaban [Eliquis] 2.5 mg PO BID tablet 10/19/20 [Rx] Darbepoetin Delmar [Aranesp] 40 mcg SQ Q7D syringe 10/19/20 [Rx] Escitalopram [Lexapro] 10 mg PO DAILY tab 10/19/20 [Rx] Ferrous Sulfate [Iron (65 MG Elemental)] 325 mg PO HS tab 10/19/20 [Rx] Furosemide [Lasix] 40 mg PO BID 30 Days #60 tablet 10/19/20 [Rx] HYDROcodone/APAP 5-325MG [Freedom 5-325] 1 each PO Q6HR PRN tab 10/19/20 [Rx] carvediloL [Coreg] 12.5 mg PO AC-BID tab 10/19/20 [Rx] hydrALAZINE HCL [Apresoline] 25 mg PO TID tab 10/19/20 [Rx] polyethylene glycoL 3350 [Miralax] 17 gm PO DAILY powd.pack 10/19/20 [Rx] Follow up Appointment(s)/Referral(s): David Redd DO [Doctor of Osteopathic Medicine] - 10/29/20 3:00 pm (Paperwork to fill out will be sent in mail) [facility], [NON-STAFF] - Alexandra Mitchell MD [Primary Care Provider] - 10/23/20 11:15 am Patient Instructions/Handouts: Heart Failure (DC) Activity/Diet/Wound Care/Special Instructions: Hemodialysis @[facility] - Mari Warner F @ 3:45 p.m. - Address: [address] [place] [address] Discharge Disposition: HOME SELF-CARE
--- NOTE | 2020-10-26 08:29 | ED ---
SOB HPI - General Chief Complaint: Shortness of Breath Stated Complaint: SOB, leg swelling Time Seen by Provider: 09/25/20 01:16 Source: patient Mode of arrival: wheelchair Limitations: no limitations - History of Present Illness Initial Comments: This patient is an 80-year-old man who presents with progressively worsening shortness of breath and also some leg swelling. The patient states it is been going on weeks to possibly months. It is preventing him from sleeping flat. He has not been having pain today. He has not noted fever or chills. He does occasionally cough some whitish phlegm. MD Complaint: shortness of breath -: week(s) Severity scale (1-10): 0 Consistency: constant Improves With: nothing Worsens With: lying flat Associated Symptoms: other (Leg swelling) Treatments Prior to Arrival: none - Related Data Home Medications Medication Instructions Recorded Confirmed Multivitamin [Men's Multi-Vitamin] 1 tab PO HS 12/13/14 09/25/20 Levothyroxine Sodium [Synthroid] 88 mcg PO HS 08/30/19 09/25/20 Docusate [Colace] 100 mg PO HS 03/18/20 09/25/20 Allopurinol [Zyloprim] 100 mg PO DAILY 09/25/20 09/25/20 Previous Rx's Medication Instructions Recorded Losartan [Cozaar] 25 mg PO HS tab 10/02/19 Albuterol Inhaler [Ventolin Hfa 2 puff INHALATION RT-Q4H PRN puff 10/19/20 Inhaler] Apixaban [Eliquis] 2.5 mg PO BID tablet 10/19/20 Darbepoetin [place] [Aranesp] 40 mcg SQ Q7D syringe 10/19/20 Escitalopram [Lexapro] 10 mg PO DAILY tab 10/19/20 Ferrous Sulfate [Iron (65 MG 325 mg PO HS tab 10/19/20 Elemental)] Furosemide [Lasix] 40 mg PO BID 30 Days #60 tablet 10/19/20 HYDROcodone/APAP 5-325MG [[place] 1 each PO Q6HR PRN tab 10/19/20 5-325] carvediloL [Coreg] 12.5 mg PO AC-BID tab 10/19/20 hydrALAZINE HCL [Apresoline] 25 mg PO TID tab 10/19/20 polyethylene glycoL 3350 [Miralax] 17 gm PO DAILY powd.pack 10/19/20 Allergies Allergy/AdvReac Type Severity Reaction Status Date / Time Sulfa (Sulfonamide Allergy Rash/Hives Verified 09/25/20 01:05 Antibiotics) Review of Systems ROS Statement: Those systems with pertinent positive or pertinent negative responses have been documented in the HPI. ROS Other: All systems not noted in ROS Statement are negative. Constitutional: Denies: fever, chills Respiratory: Reports: cough, dyspnea. Denies: wheezes, hemoptysis Cardiovascular: Reports: orthopnea, edema. Denies: chest pain, palpitations, syncope Gastrointestinal: Denies: abdominal pain, vomiting, diarrhea, melena, hematochezia Genitourinary: Denies: dysuria, hematuria Musculoskeletal: Denies: back pain Skin: Denies: rash Neurological: Denies: headache, weakness, numbness Past Medical History Past Medical History: Atrial Fibrillation, Blood Disorder, Heart Failure, COPD, GERD/Reflux, GI Bleed, Hypertension, Thyroid Disorder Additional Past Medical History / Comment(s): ANEMIA, HIATAL HERNIA (PER EGD) arrhythmia, skin cancer - RUE, LUE, R restoration, Nose (sees Dr. Cortez) PAST RT LEG ULCERS, chf History of Any Multi-Drug Resistant Organisms: VRE Date of last positivie culture/infection: 02/24/15 MDRO Source:: Right leg wound Past Surgical History: Adenoidectomy, Pacemaker, Tonsillectomy Additional Past Surgical History / Comment(s): hemorrhoidectomy, tennis elbow, EGD. Past Anesthesia/Blood Transfusion Reactions: No Reported Reaction Additional Past Anesthesia/Blood Transfusion Reaction / Comment(s): Pt has received blood in past without reaction. Type of Cardiac Device: Permanent Pacemaker Device Placement Date:: 09/28/19 Past Psychological History: No Psychological Hx Reported Smoking Status: Former smoker Past Alcohol Use History: None Reported Past Drug Use History: None Reported - Past Family History Mother Family Medical History: No Reported History Additional Family Medical History / Comment(s): Mother was healthy and lived to be 97yrs old. Daughter(s) History Unknown: Yes Family Medical History: Cancer Additional Family Medical History / Comment(s): uterine/lung/brain CA - current terminal Father History Unknown: Yes Family Medical History: Cancer Additional Family Medical History / Comment(s): prostate CA - from General Exam Limitations: no limitations General appearance: alert, in no apparent distress Head exam: Present: atraumatic, normocephalic Eye exam: Present: normal appearance. Absent: scleral icterus, conjunctival injection ENT exam: Present: normal oropharynx Neck exam: Present: normal inspection Respiratory exam: Present: rales (Bilateral lower lung snider). Absent: respiratory distress, wheezes, rhonchi, stridor GI/Abdominal exam: Present: soft. Absent: distended, tenderness, guarding, rebound, rigid, mass Extremities exam: Present: normal inspection, normal capillary refill, pedal edema. Absent: calf tenderness Back exam: Present: normal inspection. Absent: CVA tenderness (R), CVA tenderness (L) Neurological exam: Present: alert Skin exam: Present: warm, dry, intact, normal color. Absent: rash Course Vital Signs 09/25/20 09/25/20 09/25/20 01:05 02:55 03:55 Temperature 97.4 F L Pulse Rate 66 62 62 Respiratory 24 18 18 Rate Blood Pressure 183/67 177/64 162/85 O2 Sat by Pulse 97 97 98 Oximetry 09/25/20 09/25/20 04:55 06:30 Temperature 97.9 F Pulse Rate 60 60 Respiratory 18 18 Rate Blood Pressure 181/63 188/71 O2 Sat by Pulse 100 100 Oximetry Procedures - Wayne Protocol (Time Out) Patient Identification (2 identifiers required): Name, Birthdate Patient/Legal [employer] has Confirmed: Identity, Procedure, Consent Site Marked: Not Applicable Medical Decision Making - Medical Decision Making This patient is an 80-year-old man with progressively worsening dyspnea, orthopnea, bilateral leg edema. His workup does reveal CHF exacerbation. Patient be admitted and with cardiology consultation. Troponin also found to be elevated - Lab Data Result diagrams: 10/17/20 09:53 10/17/20 09:53 Lab Results 09/25/20 09/25/20 09/25/20 Range/Units 01:30 01:30 01:30 WBC 11.1 H (3.8-10.6) k/uL RBC 4.19 L (4.30-5.90) m/uL Hgb 12.1 L (13.0-17.5) gm/dL Hct 37.6 L (39.0-53.0) % MCV 89.8 (80.0-100.0) fL MCH 28.9 (25.0-35.0) pg MCHC 32.2 (31.0-37.0) g/dL RDW 15.6 H (11.5-15.5) % Plt Count 305 (150-450) k/uL MPV 7.7 Neutrophils % 87 % Lymphocytes % 5 % Monocytes % 5 % Eosinophils % 2 % Basophils % 0 % Neutrophils # 9.6 H (1.3-7.7) k/uL Lymphocytes # 0.5 L (1.0-4.8) k/uL Monocytes # 0.6 (0-1.0) k/uL Eosinophils # 0.2 (0-0.7) k/uL Basophils # 0.0 (0-0.2) k/uL Hypochromasia Anisocytosis PT 10.7 (9.0-12.0) sec INR 1.0 (<1.2) APTT 24.1 (22.0-30.0) sec D-Dimer 1.46 H (<0.60) mg/L FEU Sodium (137-145) mmol/L Potassium (3.5-5.1) mmol/L Chloride (98-107) mmol/L Carbon Dioxide (22-30) mmol/L Anion Gap mmol/L BUN (9-20) mg/dL Creatinine (0.66-1.25) mg/dL Est GFR (CKD-EPI)AfAm (>60 ml/min/1.73 sqM) Est GFR (CKD-EPI)NonAf (>60 ml/min/1.73 sqM) Glucose (74-99) mg/dL POC Glucose (mg/dL) (75-99) mg/dL POC Glu Weed Burner ID Estimated Ave Glu mg/dL Hemoglobin A1c (4.0-6.0) % Plasma Lactic Acid Nacho (0.7-2.0) mmol/L Calcium (8.4-10.2) mg/dL Magnesium (1.6-2.3) mg/dL Total Bilirubin (0.2-1.3) mg/dL AST (17-59) U/L ALT (4-49) U/L Alkaline Phosphatase (38-126) U/L Troponin I (0.000-0.034) ng/mL NT-Pro-B Natriuret Pep pg/mL Total Protein (6.3-8.2) g/dL Albumin (3.5-5.0) g/dL Urine Color Yellow Urine Appearance Clear (Clear) Urine pH 5.0 (5.0-8.0) Ur Specific [place] 1.014 (1.001-1.035) Urine Protein 1+ H (Negative) Urine Glucose (UA) Negative (Negative) Urine Ketones Negative (Negative) Urine Blood Negative (Negative) Urine Nitrite Negative (Negative) Urine Bilirubin Negative (Negative) Urine Urobilinogen <2.0 (<2.0) mg/dL Ur Leukocyte Esterase Negative (Negative) Urine RBC 1 (0-5) /hpf Urine WBC <1 (0-5) /hpf Ur Squamous Epith Cells <1 (0-4) /hpf Hyaline Casts 33 H (0-2) /lpf Urine Mucus Rare H (None) /hpf Coronavirus (PCR) (Not Detectd) 09/25/20 09/25/20 09/25/20 Range/Units 01:30 01:30 01:30 WBC (3.8-10.6) k/uL RBC (4.30-5.90) m/uL Hgb (13.0-17.5) gm/dL Hct (39.0-53.0) % MCV (80.0-100.0) fL MCH (25.0-35.0) pg MCHC (31.0-37.0) g/dL RDW (11.5-15.5) % Plt Count (150-450) k/uL MPV Neutrophils % % Lymphocytes % % Monocytes % % Eosinophils % % Basophils % % Neutrophils # (1.3-7.7) k/uL Lymphocytes # (1.0-4.8) k/uL Monocytes # (0-1.0) k/uL Eosinophils # (0-0.7) k/uL Basophils # (0-0.2) k/uL Hypochromasia Anisocytosis PT (9.0-12.0) sec INR (<1.2) APTT (22.0-30.0) sec D-Dimer (<0.60) mg/L FEU Sodium 140 (137-145) mmol/L Potassium 4.7 (3.5-5.1) mmol/L Chloride 106 (98-107) mmol/L Carbon Dioxide 24 (22-30) mmol/L Anion Gap 10 mmol/L BUN 69 H (9-20) mg/dL Creatinine 2.59 H (0.66-1.25) mg/dL Est GFR (CKD-EPI)AfAm 26 (>60 ml/min/1.73 sqM) Est GFR (CKD-EPI)NonAf 22 (>60 ml/min/1.73 sqM) Glucose 123 H (74-99) mg/dL POC Glucose (mg/dL) (75-99) mg/dL POC Glu Weed Burner ID Estimated Ave Glu mg/dL Hemoglobin A1c (4.0-6.0) % Plasma Lactic Acid Nacho 1.2 (0.7-2.0) mmol/L Calcium 9.7 (8.4-10.2) mg/dL Magnesium 2.6 H (1.6-2.3) mg/dL Total Bilirubin 0.6 (0.2-1.3) mg/dL AST 66 H (17-59) U/L ALT 66 H (4-49) U/L Alkaline Phosphatase 120 (38-126) U/L Troponin I 0.071 H* (0.000-0.034) ng/mL NT-Pro-B Natriuret Pep pg/mL Total Protein 7.0 (6.3-8.2) g/dL Albumin 4.2 (3.5-5.0) g/dL Urine Color Urine Appearance (Clear) Urine pH (5.0-8.0) Ur Specific [place] (1.001-1.035) Urine Protein (Negative) Urine Glucose (UA) (Negative) Urine Ketones (Negative) Urine Blood (Negative) Urine Nitrite (Negative) Urine Bilirubin (Negative) Urine Urobilinogen (<2.0) mg/dL Ur Leukocyte Esterase (Negative) Urine RBC (0-5) /hpf Urine WBC (0-5) /hpf Ur Squamous Epith Cells (0-4) /hpf Hyaline Casts (0-2) /lpf Urine Mucus (None) /hpf Coronavirus (PCR) (Not Detectd) 09/25/20 09/25/20 09/25/20 Range/Units 01:30 06:34 07:25 WBC (3.8-10.6) k/uL RBC (4.30-5.90) m/uL Hgb (13.0-17.5) gm/dL Hct (39.0-53.0) % MCV (80.0-100.0) fL MCH (25.0-35.0) pg MCHC (31.0-37.0) g/dL RDW (11.5-15.5) % Plt Count (150-450) k/uL MPV Neutrophils % % Lymphocytes % % Monocytes % % Eosinophils % % Basophils % % Neutrophils # (1.3-7.7) k/uL Lymphocytes # (1.0-4.8) k/uL Monocytes # (0-1.0) k/uL Eosinophils # (0-0.7) k/uL Basophils # (0-0.2) k/uL Hypochromasia Anisocytosis PT (9.0-12.0) sec INR (<1.2) APTT (22.0-30.0) sec D-Dimer (<0.60) mg/L FEU Sodium (137-145) mmol/L Potassium (3.5-5.1) mmol/L Chloride (98-107) mmol/L Carbon Dioxide (22-30) mmol/L Anion Gap mmol/L BUN (9-20) mg/dL Creatinine (0.66-1.25) mg/dL Est GFR (CKD-EPI)AfAm (>60 ml/min/1.73 sqM) Est GFR (CKD-EPI)NonAf (>60 ml/min/1.73 sqM) Glucose (74-99) mg/dL POC Glucose (mg/dL) (75-99) mg/dL POC Glu Weed Burner ID Estimated Ave Glu mg/dL Hemoglobin A1c (4.0-6.0) % Plasma Lactic Acid Nacho (0.7-2.0) mmol/L Calcium (8.4-10.2) mg/dL Magnesium (1.6-2.3) mg/dL Total Bilirubin (0.2-1.3) mg/dL AST (17-59) U/L ALT (4-49) U/L Alkaline Phosphatase (38-126) U/L Troponin I 0.098 H* (0.000-0.034) ng/mL NT-Pro-B Natriuret Pep 25040 pg/mL Total Protein (6.3-8.2) g/dL Albumin (3.5-5.0) g/dL Urine Color Urine Appearance (Clear) Urine pH (5.0-8.0) Ur Specific [place] (1.001-1.035) Urine Protein (Negative) Urine Glucose (UA) (Negative) Urine Ketones (Negative) Urine Blood (Negative) Urine Nitrite (Negative) Urine Bilirubin (Negative) Urine Urobilinogen (<2.0) mg/dL Ur Leukocyte Esterase (Negative) Urine RBC (0-5) /hpf Urine WBC (0-5) /hpf Ur Squamous Epith Cells (0-4) /hpf Hyaline Casts (0-2) /lpf Urine Mucus (None) /hpf Coronavirus (PCR) Not Detected (Not Detectd) 09/25/20 09/25/20 09/25/20 Range/Units 07:25 10:22 10:23 WBC (3.8-10.6) k/uL RBC (4.30-5.90) m/uL Hgb (13.0-17.5) gm/dL Hct (39.0-53.0) % MCV (80.0-100.0) fL MCH (25.0-35.0) pg MCHC (31.0-37.0) g/dL RDW (11.5-15.5) % Plt Count (150-450) k/uL MPV Neutrophils % % Lymphocytes % % Monocytes % % Eosinophils % % Basophils % % Neutrophils # (1.3-7.7) k/uL Lymphocytes # (1.0-4.8) k/uL Monocytes # (0-1.0) k/uL Eosinophils # (0-0.7) k/uL Basophils # (0-0.2) k/uL Hypochromasia Anisocytosis PT 11.5 (9.0-12.0) sec INR 1.1 (<1.2) APTT 28.5 (22.0-30.0) sec D-Dimer (<0.60) mg/L FEU Sodium (137-145) mmol/L Potassium (3.5-5.1) mmol/L Chloride (98-107) mmol/L Carbon Dioxide (22-30) mmol/L Anion Gap mmol/L BUN (9-20) mg/dL Creatinine (0.66-1.25) mg/dL Est GFR (CKD-EPI)AfAm (>60 ml/min/1.73 sqM) Est GFR (CKD-EPI)NonAf (>60 ml/min/1.73 sqM) Glucose (74-99) mg/dL POC Glucose (mg/dL) (75-99) mg/dL POC Glu Weed Burner ID Estimated Ave Glu mg/dL 117 Hemoglobin A1c 5.7 (4.0-6.0) % Plasma Lactic Acid Nacho (0.7-2.0) mmol/L Calcium (8.4-10.2) mg/dL Magnesium (1.6-2.3) mg/dL Total Bilirubin (0.2-1.3) mg/dL AST (17-59) U/L ALT (4-49) U/L Alkaline Phosphatase (38-126) U/L Troponin I 0.092 H* (0.000-0.034) ng/mL NT-Pro-B Natriuret Pep pg/mL Total Protein (6.3-8.2) g/dL Albumin (3.5-5.0) g/dL Urine Color Urine Appearance (Clear) Urine pH (5.0-8.0) Ur Specific [place] (1.001-1.035) Urine Protein (Negative) Urine Glucose (UA) (Negative) Urine Ketones (Negative) Urine Blood (Negative) Urine Nitrite (Negative) Urine Bilirubin (Negative) Urine Urobilinogen (<2.0) mg/dL Ur Leukocyte Esterase (Negative) Urine RBC (0-5) /hpf Urine WBC (0-5) /hpf Ur Squamous Epith Cells (0-4) /hpf Hyaline Casts (0-2) /lpf Urine Mucus (None) /hpf Coronavirus (PCR) (Not Detectd) 09/25/20 09/26/20 09/26/20 Range/Units 16:06 06:14 06:34 WBC (3.8-10.6) k/uL RBC (4.30-5.90) m/uL Hgb (13.0-17.5) gm/dL Hct (39.0-53.0) % MCV (80.0-100.0) fL MCH (25.0-35.0) pg MCHC (31.0-37.0) g/dL RDW (11.5-15.5) % Plt Count (150-450) k/uL MPV Neutrophils % % Lymphocytes % % Monocytes % % Eosinophils % % Basophils % % Neutrophils # (1.3-7.7) k/uL Lymphocytes # (1.0-4.8) k/uL Monocytes # (0-1.0) k/uL Eosinophils # (0-0.7) k/uL Basophils # (0-0.2) k/uL Hypochromasia Anisocytosis PT (9.0-12.0) sec INR (<1.2) APTT 59.5 H (22.0-30.0) sec D-Dimer (<0.60) mg/L FEU Sodium (137-145) mmol/L Potassium (3.5-5.1) mmol/L Chloride (98-107) mmol/L Carbon Dioxide (22-30) mmol/L Anion Gap mmol/L BUN (9-20) mg/dL Creatinine (0.66-1.25) mg/dL Est GFR (CKD-EPI)AfAm (>60 ml/min/1.73 sqM) Est GFR (CKD-EPI)NonAf (>60 ml/min/1.73 sqM) Glucose (74-99) mg/dL POC Glucose (mg/dL) 68 L 95 (75-99) mg/dL POC Glu Weed Burner Marcos Chen [address] Estimated [address] Glu mg/dL Hemoglobin A1c (4.0-6.0) % Plasma Lactic Acid Nacho (0.7-2.0) mmol/L Calcium (8.4-10.2) mg/dL Magnesium (1.6-2.3) mg/dL Total Bilirubin (0.2-1.3) mg/dL AST (17-59) U/L ALT (4-49) U/L Alkaline Phosphatase (38-126) U/L Troponin I (0.000-0.034) ng/mL NT-Pro-B Natriuret Pep pg/mL Total Protein (6.3-8.2) g/dL Albumin (3.5-5.0) g/dL Urine Color Urine Appearance (Clear) Urine pH (5.0-8.0) Ur Specific [place] (1.001-1.035) Urine Protein (Negative) Urine Glucose (UA) (Negative) Urine Ketones (Negative) Urine Blood (Negative) Urine Nitrite (Negative) Urine Bilirubin (Negative) Urine Urobilinogen (<2.0) mg/dL Ur Leukocyte Esterase (Negative) Urine RBC (0-5) /hpf Urine WBC (0-5) /hpf Ur Squamous Epith Cells (0-4) /hpf Hyaline Casts (0-2) /lpf Urine Mucus (None) /hpf Coronavirus (PCR) (Not Detectd) 09/26/20 09/26/20 09/26/20 Range/Units 07:18 07:18 07:18 WBC 9.6 (3.8-10.6) k/uL RBC 3.86 L (4.30-5.90) m/uL Hgb 10.8 L (13.0-17.5) gm/dL Hct 36.1 L (39.0-53.0) % MCV 93.7 (80.0-100.0) fL MCH 28.1 (25.0-35.0) pg MCHC 30.0 L (31.0-37.0) g/dL RDW 16.0 H (11.5-15.5) % Plt Count 257 (150-450) k/uL MPV 8.1 Neutrophils % 83 % Lymphocytes % 6 % Monocytes % 5 % Eosinophils % 4 % Basophils % 1 % Neutrophils # 8.0 H (1.3-7.7) k/uL Lymphocytes # 0.6 L (1.0-4.8) k/uL Monocytes # 0.5 (0-1.0) k/uL Eosinophils # 0.4 (0-0.7) k/uL Basophils # 0.1 (0-0.2) k/uL Hypochromasia Moderate Anisocytosis Slight PT 11.5 (9.0-12.0) sec INR 1.1 (<1.2) APTT 91.9 H (22.0-30.0) sec D-Dimer (<0.60) mg/L FEU Sodium 140 (137-145) mmol/L Potassium 4.8 (3.5-5.1) mmol/L Chloride 108 H (98-107) mmol/L Carbon Dioxide 21 L (22-30) mmol/L Anion Gap 11 mmol/L BUN 74 H (9-20) mg/dL Creatinine 2.33 H (0.66-1.25) mg/dL Est GFR (CKD-EPI)AfAm 29 (>60 ml/min/1.73 sqM) Est GFR (CKD-EPI)NonAf 25 (>60 ml/min/1.73 sqM) Glucose 127 H (74-99) mg/dL POC Glucose (mg/dL) (75-99) mg/dL POC Glu Weed Burner ID Estimated Ave Glu mg/dL Hemoglobin A1c (4.0-6.0) % Plasma Lactic Acid Nacho (0.7-2.0) mmol/L Calcium 8.8 (8.4-10.2) mg/dL Magnesium 2.6 H (1.6-2.3) mg/dL Total Bilirubin 0.5 (0.2-1.3) mg/dL AST 42 (17-59) U/L ALT 56 H (4-49) U/L Alkaline Phosphatase 96 (38-126) U/L Troponin I (0.000-0.034) ng/mL NT-Pro-B Natriuret Pep pg/mL Total Protein 6.2 L (6.3-8.2) g/dL Albumin 3.6 (3.5-5.0) g/dL Urine Color Urine Appearance (Clear) Urine pH (5.0-8.0) Ur Specific [place] (1.001-1.035) Urine Protein (Negative) Urine Glucose (UA) (Negative) Urine Ketones (Negative) Urine Blood (Negative) Urine Nitrite (Negative) Urine Bilirubin (Negative) Urine Urobilinogen (<2.0) mg/dL Ur Leukocyte Esterase (Negative) Urine RBC (0-5) /hpf Urine WBC (0-5) /hpf Ur Squamous Epith Cells (0-4) /hpf Hyaline Casts (0-2) /lpf Urine Mucus (None) /hpf Coronavirus (PCR) (Not Detectd) Disposition Clinical Impression: Congestive heart failure, Elevated troponin Disposition: ADMITTED IP TO THIS HOSP Condition: Stable
== END 2020-10-19 16:38 | disposition home health service (06) | DRG 291 ==
LOC: EC 00:55 → 3SCARD 06:06 → OBSVTOIN 09-26 10:05
PROVIDERS: ADMIT Internal Medicine; ATTEND Internal Medicine
PROC: B44HZZZ Ultrasonography of Bilateral Lower Extremity Arteries (ICD-10-PCS; 2020-09-25)
PROC: 0JH63XZ Insertion of Tunneled Vascular Access Device into Chest Subcutaneous Tissue and Fascia, Percutaneous Approach (ICD-10-PCS; principal; 2020-10-10 08:30)
PROC: 06H033Z Insertion of Infusion Device into Inferior Vena Cava, Percutaneous Approach (ICD-10-PCS; 2020-10-10 08:30)
PROC: 5A1D70Z Performance of Urinary Filtration, Intermittent, Less than 6 Hours Per Day (ICD-10-PCS; 2020-10-10 08:30)
DX: I13.2 Hypertensive heart and chronic kidney disease with heart failure and with stage 5 chronic kidney disease, or end stage renal disease (principal); I50.23 Acute on chronic systolic (congestive) heart failure; J96.01 Acute respiratory failure with hypoxia; N17.0 Acute kidney failure with tubular necrosis; N18.6 End stage renal disease; I48.19 Other persistent atrial fibrillation; L03.115 Cellulitis of right lower limb; L03.116 Cellulitis of left lower limb; N13.30 Unspecified hydronephrosis; I42.9 Cardiomyopathy, unspecified; I27.20 Pulmonary hypertension, unspecified; I49.5 Sick sinus syndrome; D63.1 Anemia in chronic kidney disease; Z99.2 Dependence on renal dialysis; Z91.15 Patient's noncompliance with renal dialysis; J44.9 Chronic obstructive pulmonary disease, unspecified; Z20.822 Contact with and (suspected) exposure to COVID-19; E87.5 Hyperkalemia; E87.6 Hypokalemia; I08.3 Combined rheumatic disorders of mitral, aortic and tricuspid valves; I44.30 Unspecified atrioventricular block; E03.9 Hypothyroidism, unspecified; F32.9 Major depressive disorder, single episode, unspecified; K64.9 Unspecified hemorrhoids; B35.3 Tinea pedis; R04.0 Epistaxis; T50.1X6A Underdosing of loop [high-ceiling] diuretics, initial encounter; T44.7X6A Underdosing of beta-adrenoreceptor antagonists, initial encounter; T50.4X6A Underdosing of drugs affecting uric acid metabolism, initial encounter; T46.5X6A Underdosing of other antihypertensive drugs, initial encounter; T38.1X6A Underdosing of thyroid hormones and substitutes, initial encounter; Z91.128 Patient's intentional underdosing of medication regimen for other reason; K21.9 Gastro-esophageal reflux disease without esophagitis; K44.9 Diaphragmatic hernia without obstruction or gangrene; M25.561 Pain in right knee; M25.562 Pain in left knee; Z79.890 Hormone replacement therapy; Z79.899 Other long term (current) drug therapy; Z87.891 Personal history of nicotine dependence; Z86.19 Personal history of other infectious and parasitic diseases; Z90.89 Acquired absence of other organs; Z95.0 Presence of cardiac pacemaker; Z87.19 Personal history of other diseases of the digestive system; Z87.39 Personal history of other diseases of the musculoskeletal system and connective tissue; Z85.828 Personal history of other malignant neoplasm of skin; Z98.890 Other specified postprocedural states; Z88.2 Allergy status to sulfonamides; Z80.8 Family history of malignant neoplasm of other organs or systems; Z80.1 Family history of malignant neoplasm of trachea, bronchus and lung; Z80.49 Family history of malignant neoplasm of other genital organs; Z80.42 Family history of malignant neoplasm of prostate
CPT/HCPCS: 36415; 36558; 71045; 71046; 76770; 76937; 77001; 78582; 80048; 80053; 80074; 81001; 83036; 83605; 83735; 83880; 84484; 85025; 85027; 85379; 85610; 85730; 86706; 87340; 87635; 90935; 93005; 93306; 93923; 93970; 94640; 99285

== ENCOUNTER 2021-03-18 03:05 | Inpatient (IN) | payer MEDICARE ==
[2021-03-18] MEDS ORDERED: SODIUM CHLORIDE 0.9% 1,000 ML IV STA (03:21)
[2021-03-18] MEDS ORDERED: KETOROLAC 15 MG/ML 1 ML VIAL IVP STA (03:21)
[2021-03-18] MEDS ORDERED: ACETAMINOPHEN TAB 500 MG TAB PO STA (03:21)
[2021-03-18] MEDS ORDERED: DEXAMETHASONE SOD PHOSPHATE 10 MG/ML 1 ML VIAL IVP STA (03:21)
[2021-03-18 03:36] LABS: Anisocytosis Slight; Basophils % (A) 0 %; Eosinophils # (A) 0.4 k/uL (0-0.7); Eosinophils % (A) 3 %; HCT 38.5 % (39.0-53.0); HGB 12.4 gm/dL (13.0-17.5); Lymphocytes # (A) 0.4 k/uL (1.0-4.8); Lymphocytes % (A) 2 %; MCH 31.7 pg (25.0-35.0); MCHC 32.3 g/dL (31.0-37.0); MCV 98.1 fL (80.0-100.0); Macrocytosis Slight; Mean Platelet Volume 8.1; Monocytes # (A) 0.2 k/uL (0-1.0); Monocytes % (A) 1 %; Neutrophils # (A) 14.5 k/uL (1.3-7.7); Neutrophils % (A) 93 %; Platelet Count 323 k/uL (150-450); RBC 3.92 m/uL (4.30-5.90); RDW 17.3 % (11.5-15.5); WBC 15.6 k/uL (3.8-10.6)
[2021-03-18 03:44] LABS: Partial Thromboplastin Time 25.9 sec (22.0-30.0); Prothrombin Time 19.5 sec (9.0-12.0)
[2021-03-18 03:55] LABS: Albumin 4.1 g/dL (3.5-5.0); C Reactive Protein 1.5 mg/dL (<1.0); Calcium 9.1 mg/dL (8.4-10.2); Magnesium 1.7 mg/dL (1.6-2.3); Potassium 4.5 mmol/L (3.5-5.1); Total Bilirubin 0.4 mg/dL (0.2-1.3); Total Protein 6.9 g/dL (6.3-8.2)
--- NOTE | 2021-03-18 04:00 | XR ---
EXAMINATION TYPE: XR chest 1V portable DATE OF EXAM: 03/18/2021 COMPARISON: 10/11/2020 HISTORY: Pneumonia TECHNIQUE: Single view FINDINGS: Heart is enlarged. There is no heart failure. Costophrenic angles are clear. There are no h ilar masses. There is left axillary pacemaker. There is right-sided central venous catheter with tip in the superior vena cava. IMPRESSION: Cardiomegaly. No active cardiopulmonary disease. No change.
--- NOTE | 2021-03-18 04:13 | ED ---
Chest Pain HPI - General Chief Complaint: Chest Pain Stated Complaint: Chest Pain Time Seen by Provider: 03/18/21 03:07 Source: patient, EMS, RN notes reviewed, old records reviewed Mode of arrival: EMS Limitations: no limitations - History of Present Illness Initial Comments: This is an 80-year-old male DF for evaluation. Patient is a with fever and w eakness. Patient mildly poor strain but this does not feel well he feels weak he has a significant complaint of chest pain or shortness of breath no abdominal pain no recent nausea vomiting or diarrhea. MD Complaint: chest pain (At some point complaining of chest pain), other (Weakness and fever) -: unknown Onset: during rest Pain Location: substernal Pain Radiation: none, LUE Severity scale (1-10): 3 Quality: tightness, heaviness Consistency: intermittent, now resolved Improves With: nothing Worsens With: nothing Context: recent illness Anginal Symptoms: nausea, diaphoresis Other Symptoms: cough, fever, palpitations Treatments Prior to Arrival: none - Related Data Home Medications Medication Instructions Recorded Confirmed Multivitamin [Men's Multi-Vitamin] 1 tab PO HS 12/13/14 03/18/21 Levothyroxine Sodium [Synthroid] 88 mcg PO HS 08/30/19 03/18/21 Allopurinol [Zyloprim] 100 mg PO DAILY 09/25/20 03/18/21 Carvedilol [Coreg] 12.5 mg PO BID 03/18/21 03/18/21 Docusate [Colace] 100 mg PO DAILY 03/18/21 03/18/21 Ferrous Sulfate [Feosol] 325 mg PO DAILY 03/18/21 03/18/21 Fluticasone Nasal [place] [Flonase 1 - 2 spray EA NOSTRIL DAILY PRN 03/18/21 03/18/21 Nasal [place]] Previous Rx's Medication Instructions Recorded Losartan [Cozaar] 25 mg PO HS tab 10/02/19 Apixaban [Eliquis] 2.5 mg PO BID tablet 10/19/20 Escitalopram [Lexapro] 10 mg PO DAILY tab 10/19/20 Furosemide [Lasix] 40 mg PO BID 30 Days #60 tablet 10/19/20 hydrALAZINE HCL [Apresoline] 25 mg PO TID tab 10/19/20 polyethylene glycoL 3350 [Miralax] 17 gm PO DAILY powd.pack 10/19/20 Allergies Allergy/AdvReac Type Severity Reaction Status Date / Time erythromycin base Allergy Unknown Verified 03/18/21 09:19 Sulfa (Sulfonamide Allergy Rash/Hives Verified 03/18/21 09:19 Antibiotics) Review of Systems ROS Statement: Those systems with pertinent positive or pertinent negative responses have been documented in the HPI. ROS Other: All systems not noted in ROS Statement are negative. EKG Findings - EKG Comments: EKG Findings:: EKG is a paced rhythm 60 QRS 136 QTc 442 Past Medical History Past Medical History: Atrial Fibrillation, Blood Disorder, Heart Failure, COPD, GERD/Reflux, GI Bleed, Hypertension, Thyroid Disorder Additional Past Medical History / Comment(s): ANEMIA, HIATAL HERNIA (PER EGD) arrhythmia, skin cancer - RUE, LUE, R anabaptism, Nose (sees Dr. Cortez) PAST RT LEG ULCERS, chf History of Any Multi-Drug Resistant Organisms: VRE Date of last positivie culture/infection: 02/24/15 MDRO Source:: Right leg wound Past Surgical History: Adenoidectomy, Pacemaker, Tonsillectomy Additional Past Surgical History / Comment(s): hemorrhoidectomy, tennis elbow, EGD. Past Anesthesia/Blood Transfusion Reactions: No Reported Reaction Additional Past Anesthesia/Blood Transfusion Reaction / Comment(s): Pt has received blood in past without reaction. Type of Cardiac Device: Permanent Pacemaker Device Placement Date:: 09/28/19 Past Psychological History: No Psychological Hx Reported Smoking Status: Former smoker Past Alcohol Use History: None Reported Past Drug Use History: None Reported - Past Family History Mother Family Medical History: No Reported History Additional Family Medical History / Comment(s): Mother was healthy and lived to be 97yrs old. Daughter(s) History Unknown: Yes Family Medical History: Cancer Additional Family Medical History / Comment(s): uterine/lung/brain CA - current terminal Father History Unknown: Yes Family Medical History: Cancer Additional Family Medical History / Comment(s): prostate CA - from General Exam Limitations: no limitations General appearance: alert, in no apparent distress, anxious Head exam: Present: atraumatic, normocephalic, normal inspection Eye exam: Present: normal appearance, PERRL, EOMI. Absent: scleral icterus, conjunctival injection, periorbital swelling ENT exam: Present: normal exam, mucous membranes moist Neck exam: Present: normal inspection. Absent: tenderness, meningismus, lymphadenopathy Respiratory exam: Present: normal lung sounds bilaterally. Absent: respiratory distress, wheezes, rales, rhonchi, stridor Cardiovascular Exam: Present: regular rate, normal rhythm, normal heart sounds. Absent: systolic murmur, diastolic murmur, rubs, gallop, clicks GI/Abdominal exam: Present: soft, normal bowel sounds. Absent: distended, tenderness, guarding, rebound, rigid Extremities exam: Present: normal inspection, full ROM, normal capillary refill. Absent: tenderness, pedal edema, joint swelling, calf tenderness Back exam: Present: normal inspection Neurological exam: Present: alert, oriented X3, CN II-XII intact Psychiatric exam: Present: normal affect, normal mood Skin exam: Present: warm, dry, intact, normal color. Absent: rash Course Vital Signs 03/18/21 03/18/21 03/18/21 03:10 04:00 05:15 Temperature 100.2 F H Pulse Rate 64 79 74 Pulse Rate [ Right Pulse Oximetery] Respiratory 18 20 22 Rate Blood Pressure 158/56 118/68 130/64 Blood Pressure [Right Arm Supine] O2 Sat by Pulse 100 97 95 Oximetry 03/18/21 03/18/21 07:00 07:13 Temperature 98.3 F 98.0 F Pulse Rate 60 Pulse Rate [ 60 Right Pulse Oximetery] Respiratory 16 20 Rate Blood Pressure 129/57 Blood Pressure 117/58 [Right Arm Supine] O2 Sat by Pulse 99 97 Oximetry - Reevaluation(s) Reevaluation #1: Medical record is reviewed Patient symptoms are improved Patient informed of results and questions answered - Consultations Consultation #1: Spoke Dr. Mitchell regarding findings, questions answered Chest Pain MDM - MDM 80 male to the emergency department for evaluation history of heart disease and CAD coming in for fever weakness. Patient has renal failure dehydration and febrile illness will place on antibiotics Disposition Clinical Impression: Bradycardia, Fever, Acute on chronic renal failure Disposition: ADMITTED IP TO THIS HOSP Condition: Fair Is patient prescribed a controlled substance at d/c from ED?: No
--- NOTE | 2021-03-18 04:46 | XR ---
EXAMINATION TYPE: XR knee complete RT DATE OF EXAM: 03/18/2021 COMPARISON: NONE HISTORY: Knee pain TECHNIQUE: 3 views FINDINGS: There is some spurring on the patella. There is no fracture nor dislocation. There is some vascular calcification. IMPRESSION: No acute abnormality of the right knee.
[2021-03-18] MEDS ORDERED: NALOXONE 0.4 MG/ML 1 ML VIAL IV PRN (06:29)
[2021-03-18] MEDS ORDERED: LORazepam 2 MG/ML INJ IV PRN (06:29)
[2021-03-18] MEDS ORDERED: ONDANSETRON 4 MG/2 ML VIAL IVP PRN (06:29)
[2021-03-18] MEDS ORDERED: MORPHINE SULFATE 4 MG/ML SYRINGE IVP STA (06:53)
[2021-03-18] MEDS: SODIUM CHLORIDE 0.9% 1,000 ML IV SCH ×3 (07:12→20:54)
--- NOTE | 2021-03-18 13:27 | CONS ---
CONSULTATION REASON FOR CONSULT: End-stage renal disease. HISTORY OF PRESENT ILLNESS: Patient is an 80-year-old male who was admitted to the hospital with history of fever. He denied any cough, nausea, vomiting or abdominal pain. The patient has had some redness in both lower extremities. He has superficial ulcers in his toes. He denies any significant drainage. Chest x-ray done does not show any active pulmonary disease. The patient is normally maintained on a Monday, Monday, Monday schedule. PAST MEDICAL HISTORY: 1. Acute kidney injury currently end-stage renal disease with no recovery of renal function, currently dialysis dependent. 2. Atrial fibrillation. 3. Heart failure. 4. COPD. 5. Gastroesophageal reflux disease. 6. Hypothyroidism. 7. Chronic lower extremity ulcers. 8. Peripheral vascular disease. PAST SURGICAL HISTORY: Adenoidectomy, pacemaker placement, tonsillectomy, hemorrhoidectomy, EGDs. SOCIAL HISTORY: Patient is a former smoker. No history of drug abuse or alcohol abuse. MEDICATIONS: Medications prior to admission included multivitamins, Synthroid, Colace, Zyloprim, Cozaar, Eliquis, Aranesp, Lexapro, Lasix, iron, hydralazine, MiraLAX, [place]. ALLERGIES: INCLUDE SULFA CAUSES RASH AND HIVES. REVIEW OF SYSTEMS: As per HPI. Other systems negative. EXAMINATION: Patient is comfortable awake, blood, alert, oriented x3. Blood pressure 129/57, heart rate 60 per minute. He is afebrile. Examination of the heart S1, S2. Examination of the lungs, bilateral breath sounds are heard. Abdomen is soft, nontender. Examination of lower extremities shows no edema. There is redness noted bilateral feet, mostly in the toes with ulcers and dark areas noted on both toes, more on the right foot than on the left. 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 LAB: Show sodium 136, potassium 4.5, hemoglobin 12.4, white cell count 15.6. ASSESSMENT: 1. End-stage renal disease, maintained on hemodialysis on a Monday, Monday, Monday schedule. [facility]. Patient will be scheduled for hemodialysis in a.m. 2. Fever, mostly associated with cellulitis, lower extremity ulcers, maintained on antibiotics. 3. Chronic kidney disease mineral bone disorder. 4. Generalized debility. 5. History of hypertension, blood pressure currently not significantly elevated. PLAN: Continue antibiotics. We will plan for hemodialysis in a.m. Thank you for this consultation. We will continue to follow the patient with you during his hospitalization. PARESH / YOKO: [id number] /
--- NOTE | 2021-03-18 17:17 | P.HPIM ---
History of Present Illness H&P Date: 03/18/21 Sean Lin, is an 80-year-old male who presented to [facility] emergency room with a chief complaint of weakness and febrile illness He was evaluated in the emergency room vital examination on presentation revealed a temperature of 100.2 pulse 64 respiration 18 blood pressure 158/56 pulse ox 100% on 2 L nasal cannula Laboratory data revealed a white blood count of 15.6 hemoglobin 12.4 platelet count 323 sodium 136 potassium 4.5 BUN 31 creatinine 2.4 to Testing in the emergency room revealed chest x-ray revealed evidence of cardiomegaly otherwise no active cardiopulmonary disease, EKG revealed ventricular paced rhythm Patient was admitted to medical floor for further evaluation and treatment Past medical history is significant for end-stage renal disease on hemodialysis, chronic systolic congestive heart failure, history of cardiac arrhythmia status post biventricular pacemaker implant, underlying history of COPD, underlying history of paroxysmal atrial fibrillation, underlying history of coronary artery disease, underlying history of peripheral arterial disease On review of systems patient is alert and oriented 3 in no apparent distress he is complaining of fever and some chills, he is also complaining of right lower extremity pain otherwise he denies any complaints there is no headache or dizziness no chest pain no shortness of breath no cough no nausea or vomiting no abdominal pain no diarrhea no blood in the stools no burning with urination no frequency or urgency and no hematuria Past Medical History Past Medical History: Atrial Fibrillation, Blood Disorder, Heart Failure, COPD, GERD/Reflux, GI Bleed, Hypertension, Thyroid Disorder Additional Past Medical History / Comment(s): ANEMIA, HIATAL HERNIA (PER EGD) arrhythmia, skin cancer - RUE, LUE, R adventism, Nose (sees Dr. Cortez) PAST RT LEG ULCERS, chf History of Any Multi-Drug Resistant Organisms: VRE Date of last positivie culture/infection: 02/24/15 MDRO Source:: Right leg wound Past Surgical History: Adenoidectomy, Pacemaker, Tonsillectomy Additional Past Surgical History / Comment(s): hemorrhoidectomy, tennis elbow, EGD. Past Anesthesia/Blood Transfusion Reactions: No Reported Reaction Additional Past Anesthesia/Blood Transfusion Reaction / Comment(s): Pt has received blood in past without reaction. Type of Cardiac Device: Permanent Pacemaker Device Placement Date:: 09/28/19 Past Psychological History: No Psychological Hx Reported Smoking Status: Former smoker Past Alcohol Use History: None Reported Past Drug Use History: None Reported - Past Family History Mother Family Medical History: No Reported History Additional Family Medical History / Comment(s): Mother was healthy and lived to be 97yrs old. Daughter(s) History Unknown: Yes Family Medical History: Cancer Additional Family Medical History / Comment(s): uterine/lung/brain CA - current terminal Father History Unknown: Yes Family Medical History: Cancer Additional Family Medical History / Comment(s): prostate CA - from Medications and Allergies Home Medications Medication Instructions Recorded Confirmed Type Multivitamin [Men's Multi-Vitamin] 1 tab PO HS 12/13/14 03/18/21 History Levothyroxine Sodium [Synthroid] 88 mcg PO HS 08/30/19 03/18/21 History Losartan [Cozaar] 25 mg PO HS tab 10/02/19 03/18/21 Rx Allopurinol [Zyloprim] 100 mg PO DAILY 09/25/20 03/18/21 History Apixaban [Eliquis] 2.5 mg PO BID tablet 10/19/20 03/18/21 Rx Escitalopram [Lexapro] 10 mg PO DAILY tab 10/19/20 03/18/21 Rx Furosemide [Lasix] 40 mg PO BID 30 Days #60 tablet 10/19/20 03/18/21 Rx hydrALAZINE HCL [Apresoline] 25 mg PO TID tab 10/19/20 03/18/21 Rx polyethylene glycoL 3350 [Miralax] 17 gm PO DAILY powd.pack 10/19/20 03/18/21 Rx Carvedilol [Coreg] 12.5 mg PO BID 03/18/21 03/18/21 History Docusate [Colace] 100 mg PO DAILY 03/18/21 03/18/21 History Ferrous Sulfate [Feosol] 325 mg PO DAILY 03/18/21 03/18/21 History Fluticasone Nasal [place] [Flonase 1 - 2 spray EA NOSTRIL DAILY PRN 03/18/21 03/18/21 History Nasal [place]] Allergies Allergy/AdvReac Type Severity Reaction Status Date / Time erythromycin base Allergy Unknown Verified 03/18/21 09:19 Sulfa (Sulfonamide Allergy Rash/Hives Verified 03/18/21 09:19 Antibiotics) Physical Exam Vitals: Vital Signs Temp Pulse Pulse Resp BP BP Pulse Ox 03/18/21 07:13 98.0 F 60 20 129/57 97 03/18/21 07:00 98.3 F 60 16 117/58 99 03/18/21 05:15 74 22 130/64 95 03/18/21 04:00 79 20 118/68 97 03/18/21 03:10 100.2 F H 64 18 158/56 100 Intake and Output 03/17/21 03/18/21 03/18/21 22:59 06:59 14:59 Other: Weight 77.111 kg In general patient is alert and oriented x 3 in no distress HEENT head normocephalic and atraumatic Neck is supple no JVD no goiter no lymphadenopathy no carotid bruit Chest examination is clear to auscultation no crackles no wheezing Cardiac exam reveals regular heart sounds S1 and S2 no gallops no murmurs Abdomen is soft nontender no organomegaly with normal bowel sounds Extremity exam bilateral lower extremity erythema in the pretibial area right worse than left there are multiple ulcerations on the toes Neurological examination reveals no gross focal deficits Results CBC & Chem 7: 03/18/21 03:28 03/18/21 03:28 Labs: Abnormal Lab Results - Last 24 Hours (Table) 03/18/21 03/18/21 03/18/21 Range/Units 03:28 03:28 03:28 WBC 15.6 H (3.8-10.6) k/uL RBC 3.92 L (4.30-5.90) m/uL Hgb 12.4 L (13.0-17.5) gm/dL Hct 38.5 L (39.0-53.0) % RDW 17.3 H (11.5-15.5) % Neutrophils # 14.5 H (1.3-7.7) k/uL Lymphocytes # 0.4 L (1.0-4.8) k/uL PT 19.5 H (9.0-12.0) sec INR 2.0 H (<1.2) Sodium 136 L (137-145) mmol/L BUN 31 H (9-20) mg/dL Creatinine 2.42 H (0.66-1.25) mg/dL Glucose 101 H (74-99) mg/dL Lactate Dehydrogenase 645 H (313-618) U/L C-Reactive Protein 1.5 H (<1.0) mg/dL Assessment and Plan Plan: Febrile illness with leukocytosis, likely related to lower extremity cellulitis at this time will discontinue IV Rocephin and start IV cefazolin 1 g every 8 hours blood culture pending, will consult infectious disease Underlying history of coronary artery disease and congestive heart failure stable cardiac-sunshine at this time will consult cardiology for follow-up End-stage renal disease maintained on hemodialysis consultation for nephrology was initiated Underlying history of chronic systolic congestive heart failure Underlying history of cardiac arrhythmia with third degree AV block status post biventricular pacemaker implant in September 2019 Underlying history of COPD Underlying history of paroxysmal atrial fibrillation Underlying history of peripheral arterial disease with moderate bilateral fem- pop disease At this time patient is admitted to medical floor He was started on IV cefazolin Nephrology consultation requested for continuation of hemodialysis Infectious disease vascular surgery and cardiology consultation requested Prognosis is guarded due to advanced medical problems with multisystem involvement
[2021-03-18] MEDS: ACETAMINOPHEN TAB 325 MG TAB PO PRN (17:45)
[2021-03-18 20:14] LABS: Appearance,Urine Cloudy (Clear); Bacteria,Urine Rare /hpf; Bilirubin,Urine Negative (Negative); Blood,Urine Negative (Negative); Color,Urine Yellow; Glucose,Urine (UA) Negative (Negative); Hyaline Casts,Urine 23 /lpf (0-2); Ketones,Urine Trace (Negative); Leukocyte Esterase,Urine Trace (Negative); Mucus,Urine Rare /hpf; Nitrite,Urine Negative (Negative); Protein,Urine 1+ (Negative); RBC,Urine <1 /hpf (0-5); Specific Gravity,Urine 1.019 (1.001-1.035); Squamous Epithelial Cell,Urine <1 /hpf (0-4); Urobilinogen,Urine <2.0 mg/dL (<2.0); WBC,Urine 3 /hpf (0-5)
[2021-03-18] MEDS: MORPHINE SULFATE 4 MG/ML SYRINGE IV PRN (20:54)
[2021-03-18] MEDS ORDERED: CEFEPIME 2 GM in SODIUM CHLORIDE 0.9% 100 ML IVPB STA (22:23)
[2021-03-19] MEDS: MORPHINE SULFATE 4 MG/ML SYRINGE IV PRN (03:47)
[2021-03-19] MEDS: SODIUM CHLORIDE 0.9% 1,000 ML IV SCH ×3 (05:21→20:34)
[2021-03-19 09:17] LABS: HCT 32.7 % (39.6-50.0); HGB 9.8 g/dL (13.0-17.0); MCH 30.7 pg (27.0-32.0); MCV 102.5 fL (80.0-97.0); Mean Platelet Volume 10.7 fL (9.5-12.2); Platelet Count 193 X 10*3/uL (140-440); RBC 3.19 X 10*6/uL (4.40-5.60); RDW 17.7 % (11.5-14.5)
--- NOTE | 2021-03-19 09:27 | P.CONS ---
History of Present Illness - Reason for Consult Consult date: 03/18/21 Fever --cellulitis Requesting physician: Alexandra Mitchell - Chief Complaint fever and leg pain x days - History of Present Illness History of present illness : Patient is 80-year male with a past medical history significant for end-stage renal disease on hemodialysis patient is currently getting diuresis through the left IJ permacatheter patient presented to the ER yesterday for evaluation of weakness and a fever patient has been complaining mostly of pain to me to the bilateral lower extremity especially to the right foot area symptom has been going on for the last few days denies any history of any trauma pain is mostly dull aching and worse when he walks on it about 5-6 out of 10 patient denies having a headache no chest pain shortness of breath or cough no nausea no vomiting no abdominal pain no diarrhea on presentation to the hospital patient did have a fever 100.2 F patient did have white count of 15.6 with a left shift creatinine was 2.42 her urine is negative colón PCR was negative patient did have a chest x-ray cardiomegaly no active cardiopulmonary disease patient also have x-ray of the knee right side no acute abnormality patient was started on cefazolin consult for possible lower extremity cellulitis infectious disease was consulted for further management of antibiotic therapy letter this evening the patient blood cultures came back positive with gram-negative bacilli those were drawn in the ER Review of system: CONSTITUTIONAL: Positive for weakness along with the fever. EYES: No complaint. ENT: No complaint. RESPIRATORY: No complaint. CARDIOVASCULAR: No complaint. GENITOURINARY: No complaint. GASTROINTESTINAL: No complaint. MUSCULOSKELETAL: As per history of present illness. INTEGUMENTARY: No complaint. PSYCHOLOGIC: No complaint. ENDOCRINE: No complaint. NEUROLOGIC: No complaint. Past medical history : Reviewed, documented below Past surgical history : Reviewed, documented below Social history: Reviewed, documented below Medications: Reviewed, as documented below EXAMINATION: Vital sigans= Reviewed and documented below GENERAL DESCRIPTION: Elderly male lying in bed, no distress. No tachypnea or acc essory muscle of respiration use. HEENT: Shows Pallor , no scleral icterus. Oral mucous membrane is dry. NECK: Trachea central, no thyromegaly. LUNGS: Unlabored breathing. Clear to auscultation anteriorly. No wheeze or crackle. HEART: S1, S2, regular rate and rhythm. ABDOMEN: Soft, no tenderness , guarding or rigidity EXTREMITIES: No edema of feet. Patient did have some bluish discoloration to th e toe tips SKIN: No rash, no masses palpable. NEUROLOGICAL: The patient is awake, alert, oriented x2, mood and affect normal. LABS AND RADIOLOGY: Reviewed results see below Assessment : 1-patient with a fever and now with evidence of gram-negative bacteremia which is usually off the gut or urinary origin however the patient currently do not have any abdominal symptoms and not tender on clinical examination urine is negative high clinic suspicious for possible permacatheter infection in this patient did have a pain to his lower extremity however no obvious cellulitis was noticed and there was concern for possible ischemic changes to the toe Plan: 1-blood cultures will be repeated from the dialysis catheter at the time of dialysis tomorrow 2-discontinue cefazolin 3-start the patient on cefepime dose adjusted to the kidney function 4-patient benefit from vascular surgery evaluation with concern for possible ischemic to the lower leg We will follow on clinical condition and cultures to further adjust medication if needed Thank you for this consultation we will follow the patient along with you Past Medical History Past Medical History: Atrial Fibrillation, Blood Disorder, Heart Failure, COPD, GERD/Reflux, GI Bleed, Hypertension, Thyroid Disorder Additional Past Medical History / Comment(s): ANEMIA, HIATAL HERNIA (PER EGD) arrhythmia, skin cancer - RUE, LUE, R taoism, Nose (sees Dr. Crotez) PAST RT LEG ULCERS, chf History of Any Multi-Drug Resistant Organisms: VRE Year Discovered:: 02/24/15 MDRO Source:: Right leg wound Past Surgical History: Adenoidectomy, Pacemaker, Tonsillectomy Additional Past Surgical History / Comment(s): hemorrhoidectomy, tennis elbow, EGD. Past Anesthesia/Blood Transfusion Reactions: No Reported Reaction Additional Past Anesthesia/Blood Transfusion Reaction / Comm: Pt has received blood in past without reaction. Type of Cardiac Device: Permanent Pacemaker Device Placement Date:: 09/28/19 Past Psychological History: No Psychological Hx Reported Smoking Status: Former smoker Past Alcohol Use History: None Reported Past Drug Use History: None Reported - Past Family History Mother Family Medical History: No Reported History Additional Family Medical History / Comment(s): Mother was healthy and lived to be 97yrs old. Daughter(s) History Unknown: Yes Family Medical History: Cancer Additional Family Medical History / Comment(s): uterine/lung/brain CA - current terminal Father History Unknown: Yes Family Medical History: Cancer Additional Family Medical History / Comment(s): prostate CA - from Medications and Allergies Home Medications Medication Instructions Recorded Confirmed Type Multivitamin [Men's Multi-Vitamin] 1 tab PO HS 12/13/14 03/18/21 History Levothyroxine Sodium [Synthroid] 88 mcg PO HS 08/30/19 03/18/21 History Losartan [Cozaar] 25 mg PO HS tab 10/02/19 03/18/21 Rx Allopurinol [Zyloprim] 100 mg PO DAILY 09/25/20 03/18/21 History Apixaban [Eliquis] 2.5 mg PO BID tablet 10/19/20 03/18/21 Rx Escitalopram [Lexapro] 10 mg PO DAILY tab 10/19/20 03/18/21 Rx Furosemide [Lasix] 40 mg PO BID 30 Days #60 tablet 10/19/20 03/18/21 Rx hydrALAZINE HCL [Apresoline] 25 mg PO TID tab 10/19/20 03/18/21 Rx polyethylene glycoL 3350 [Miralax] 17 gm PO DAILY powd.pack 10/19/20 03/18/21 Rx Carvedilol [Coreg] 12.5 mg PO BID 03/18/21 03/18/21 History Docusate [Colace] 100 mg PO DAILY 03/18/21 03/18/21 History Ferrous Sulfate [Feosol] 325 mg PO DAILY 03/18/21 03/18/21 History Fluticasone Nasal [place] [Flonase 1 - 2 spray EA NOSTRIL DAILY PRN 03/18/21 03/18/21 History Nasal [place]] Allergies Allergy/AdvReac Type Severity Reaction Status Date / Time erythromycin base Allergy Unknown Verified 03/18/21 09:19 Sulfa (Sulfonamide Allergy Rash/Hives Verified 03/18/21 09:19 Antibiotics) Physical Exam Vitals: Vital Signs Temp Pulse Pulse Resp BP BP Pulse Ox 03/18/21 15:00 98.2 F 84 16 155/53 98 03/18/21 08:00 60 20 03/18/21 07:13 98.0 F 60 20 129/57 97 03/18/21 07:00 98.3 F 60 16 117/58 99 03/18/21 05:15 74 22 130/64 95 03/18/21 04:00 79 20 118/68 97 03/18/21 03:10 100.2 F H 64 18 158/56 100 Intake and Output 03/18/21 03/18/21 03/18/21 06:59 14:59 22:59 Intake Total 240 Output Total 25 Balance 240 -25 Intake: Oral 240 Output: Urine 25 Other: Voiding Method Urinal Weight 77.111 kg 77.111 kg Results CBC & Chem 7: 03/19/21 05:20 03/18/21 03:28 Labs: Abnormal Lab Results - Last 24 Hours (Table) 03/18/21 03/18/21 03/18/21 Range/Units 03:28 03:28 03:28 WBC 15.6 H (3.8-10.6) k/uL RBC 3.92 L (4.30-5.90) m/uL Hgb 12.4 L (13.0-17.5) gm/dL Hct 38.5 L (39.0-53.0) % RDW 17.3 H (11.5-15.5) % Neutrophils # 14.5 H (1.3-7.7) k/uL Lymphocytes # 0.4 L (1.0-4.8) k/uL PT 19.5 H (9.0-12.0) sec INR 2.0 H (<1.2) Sodium 136 L (137-145) mmol/L BUN 31 H (9-20) mg/dL Creatinine 2.42 H (0.66-1.25) mg/dL Glucose 101 H (74-99) mg/dL Lactate Dehydrogenase 645 H (313-618) U/L C-Reactive Protein 1.5 H (<1.0) mg/dL
[2021-03-19 09:51] LABS: African American GFR (CKD) 17.6 (60.0-200.0); Albumin 3.1 g/dL (3.8-4.9); Albumin/Globulin Ratio 1.61 (1.60-3.17); Anion Gap 14.4 mmol/L (4.00-12.00); BUN/Creat Ratio 12.3 Ratio (12.00-20.00); Blood Urea Nitrogen 43.8 mg/dL (9.0-27.0); Calcium 8.2 mg/dL (8.7-10.3); Carbon Dioxide 20.7 mmol/L (21.6-31.8); Globulin 1.9 g/dL (1.6-3.3); Non-African American GFR(CKD) 15.1 (60.0-200.0); Potassium 4.6 mmol/L (3.5-5.5); Total Bilirubin 0.2 mg/dL (0.30-1.20)
--- NOTE | 2021-03-19 10:00 | P.PN ---
Subjective Progress Note Date: 03/19/21 Sean Lin, is an 80-year-old male who presented to [facility] emergency room with a chief complaint of weakness and febrile illness He was evaluated in the emergency room vital examination on presentation revealed a temperature of 100.2 pulse 64 respiration 18 blood pressure 158/56 p ulse ox 100% on 2 L nasal cannula Laboratory data revealed a white blood count of 15.6 hemoglobin 12.4 platelet count 323 sodium 136 potassium 4.5 BUN 31 creatinine 2.4 to Testing in the emergency room revealed chest x-ray revealed evidence of cardiomegaly otherwise no active cardiopulmonary disease, EKG revealed ventricular paced rhythm Patient was admitted to medical floor for further evaluation and treatment Past medical history is significant for end-stage renal disease on hemodialysis, chronic systolic congestive heart failure, history of cardiac arrhythmia status post biventricular pacemaker implant, underlying history of COPD, underlying history of paroxysmal atrial fibrillation, underlying history of coronary artery disease, underlying history of peripheral arterial disease On review of systems patient is alert and oriented 3 in no apparent distress he is complaining of fever and some chills, he is also complaining of right lower extremity pain otherwise he denies any complaints there is no headache or dizziness no chest pain no shortness of breath no cough no nausea or vomiting no abdominal pain no diarrhea no blood in the stools no burning with urination no frequency or urgency and no hematuria On 03/19/2021 patient's alert and oriented 3. Patient remains on IV Maxipime for cellulitis. Patient reports he does feel significantly improved. Nephrology services following patient to receive hemodialysis today. Vascular surgery and infectious disease services also consulted. At this time patient denies chest pain or shortness breath. Patient denies nausea vomiting or diarrhea. Patient denies any urinary burning or frequency Objective - Vital Signs Vital signs: Vital Signs Temp 98.0 F 03/19/21 07:00 Pulse 100 03/19/21 07:00 Resp 18 03/19/21 07:00 BP 104/58 03/19/21 07:00 Pulse Ox 100 03/19/21 07:00 Intake & Output 03/18/21 03/19/21 03/19/21 18:59 06:59 18:59 Intake Total 240 780 500 Output Total 25 Balance 215 780 500 Weight 77.111 kg Intake: Intake, IV Titration 780 Amount Sodium Chloride 0.9% 1, 780 000 ml @ 130 mls/hr IV . [id number] [facility] Rx#:[id number] Oral 240 500 Output: Urine 25 Other: Voiding Method Urinal - Exam In general patient is alert and oriented x 3 in no distress HEENT head normocephalic and atraumatic Neck is supple no JVD no goiter no lymphadenopathy no carotid bruit Chest examination is clear to auscultation no crackles no wheezing Cardiac exam reveals regular heart sounds S1 and S2 no gallops no murmurs Abdomen is soft nontender no organomegaly with normal bowel sounds Extremity exam bilateral lower extremity erythema in the pretibial area right worse than left there are multiple ulcerations on the toes Neurological examination reveals no gross focal deficits - Labs CBC & Chem 7: 03/19/21 05:20 03/19/21 05:20 Labs: Abnormal Lab Results - Last 24 Hours (Table) 03/18/21 03/19/21 03/19/21 Range/Units 20:06 05:20 05:20 WBC 15.80 H (4.50-10.00) X 10*3/uL RBC 3.19 L (4.40-5.60) X 10*6/uL Hgb 9.8 L (13.0-17.0) g/dL Hct 32.7 L (39.6-50.0) % MCV 102.5 H (80.0-97.0) fL MCHC 30.0 L (32.0-37.0) g/dL RDW 17.7 H (11.5-14.5) % Carbon Dioxide 20.7 L (21.6-31.8) mmol/L Anion Gap 14.40 H (4.00-12.00) mmol/L BUN 43.8 H (9.0-27.0) mg/dL Creatinine 3.6 H (0.6-1.5) mg/dL Est GFR (CKD-EPI)AfAm 17.6 L (60.0-200.0) Est GFR (CKD-EPI)NonAf 15.1 L (60.0-200.0) Calcium 8.2 L (8.7-10.3) mg/dL Total Bilirubin 0.20 L (0.30-1.20) mg/dL Total Protein 5.0 L (6.2-8.2) g/dL Albumin 3.1 L (3.8-4.9) g/dL Urine Protein 1+ H (Negative) Urine Ketones Trace H (Negative) Ur Leukocyte Esterase Trace H (Negative) Urine Bacteria Rare H (None) /hpf Hyaline Casts 23 H (0-2) /lpf Urine Mucus Rare H (None) /hpf Microbiology - Last 24 Hours (Table) 03/18/21 03:45 Blood Culture Gram Stain - Preliminary Blood 03/18/21 03:45 Blood Culture - Final Blood Assessment and Plan Plan: Febrile illness with leukocytosis, likely related to lower extremity cellulitis at this time will discontinue IV Rocephin and start IV cefazolin 1 g every 8 hours blood culture pending, will consult infectious disease Underlying history of coronary artery disease and congestive heart failure stable cardiac-sunshine at this time will consult cardiology for follow-up End-stage renal disease maintained on hemodialysis consultation for nephrology was initiated Underlying history of chronic systolic congestive heart failure Underlying history of cardiac arrhythmia with third degree AV block status post biventricular pacemaker implant in September 2019 Underlying history of COPD Underlying history of paroxysmal atrial fibrillation Underlying history of peripheral arterial disease with moderate bilateral fem- pop disease At this time patient is admitted to medical floor He was started on IV cefazolin Nephrology consultation requested for continuation of hemodialysis Infectious disease vascular surgery and cardiology consultation requested Prognosis is guarded due to advanced medical problems with multisystem involvement
[2021-03-19] MEDS: CEFEPIME 1 GM in SODIUM CHLORIDE 0.9% 50 ML IVPB SCH ×2 (12:51→23:25)
[2021-03-19 13:24] LABS: Basophils # (A) 0.02 X 10*3/uL (0.00-0.10); Basophils % (A) 0.1 %; Eosinophils # (A) 0.01 X 10*3/uL (0.04-0.35); Eosinophils % (A) 0.1 %; Lymphocytes # (A) 0.34 X 10*3/uL (0.90-5.00); Lymphocytes % (A) 2.2 %; Monocytes # (A) 1.32 X 10*3/uL (0.20-1.00); Monocytes % (A) 8.4 %; Neutrophils # (A) 13.78 X 10*3/uL (1.80-7.70); Neutrophils % (A) 87.1 %
--- NOTE | 2021-03-19 13:51 | P.GSCN ---
History of Present Illness Consult date: 03/19/21 Reason for Consult: PAD, toe ulcers Requesting physician: Alexandra Mitchell History of present illness: This is a 80-year-old male patient who presented to the emergency room with complaints of pain and fever. He also is reporting lower extremity swelling. His past medical history includes atrial fibrillation, heart failure, COPD, GERD, PA bleed, hypertension, thyroid disorder and recently started hemodialysis for end-stage renal disease proximately 3-4 months ago.. Patient also has a history of significant peripheral edema and was seen in September of this year by vascular surgery for peripheral arterial disease and toe ulcers. Patient has been noncompliant in the past. Has been recommended for compression stockings and elevation of his lower extremities for which he has refused in the past. During his last hospitalization he underwent arterial duplex with evidence of peripheral arterial disease with ABIs 0.5 on the right and 0.56 on the left. Patient states he's had pain to the distal tips of his toesfor the last several months. States he always has pain, patient states he's not able to walk much but that's due to balance not due from pain. Review of Systems 14 point review of systems completed and all pertinent positives and negatives as stated in the HPI Past Medical History Past Medical History: Atrial Fibrillation, Blood Disorder, Heart Failure, COPD, GERD/Reflux, GI Bleed, Hypertension, Thyroid Disorder Additional Past Medical History / Comment(s): ANEMIA, HIATAL HERNIA (PER EGD) arrhythmia, skin cancer - RUE, LUE, R restoration, Nose (sees Dr. 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 Past Anesthesia/Blood Transfusion Reactions: No Reported Reaction Additional Past Anesthesia/Blood Transfusion Reaction / Comm: Pt has received blood in past without reaction. Type of Cardiac Device: Permanent Pacemaker Device Placement Date:: 09/28/19 Past Psychological History: No Psychological Hx Reported Smoking Status: Former smoker Past Alcohol Use History: None Reported Past Drug Use History: None Reported - Past Family History Mother Family Medical History: No Reported History Additional Family Medical History / Comment(s): Mother was healthy and lived to be 97yrs old. Daughter(s) History Unknown: Yes Family Medical History: Cancer Additional Family Medical History / Comment(s): uterine/lung/brain CA - current terminal Father History Unknown: Yes Family Medical History: Cancer Additional Family Medical History / Comment(s): prostate CA - from Medications and Allergies Home Medications Medication Instructions Recorded Confirmed Type Multivitamin [Men's Multi-Vitamin] 1 tab PO HS 12/13/14 03/18/21 History Levothyroxine Sodium [Synthroid] 88 mcg PO HS 08/30/19 03/18/21 History Losartan [Cozaar] 25 mg PO HS tab 10/02/19 03/18/21 Rx Allopurinol [Zyloprim] 100 mg PO DAILY 09/25/20 03/18/21 History Apixaban [Eliquis] 2.5 mg PO BID tablet 10/19/20 03/18/21 Rx Escitalopram [Lexapro] 10 mg PO DAILY tab 10/19/20 03/18/21 Rx Furosemide [Lasix] 40 mg PO BID 30 Days #60 tablet 10/19/20 03/18/21 Rx hydrALAZINE HCL [Apresoline] 25 mg PO TID tab 10/19/20 03/18/21 Rx polyethylene glycoL 3350 [Miralax] 17 gm PO DAILY powd.pack 10/19/20 03/18/21 Rx Carvedilol [Coreg] 12.5 mg PO BID 03/18/21 03/18/21 History Docusate [Colace] 100 mg PO DAILY 03/18/21 03/18/21 History Ferrous Sulfate [Feosol] 325 mg PO DAILY 03/18/21 03/18/21 History Fluticasone Nasal [place] [Flonase 1 - 2 spray EA NOSTRIL DAILY PRN 03/18/21 03/18/21 History Nasal [place]] Allergies Allergy/AdvReac Type Severity Reaction Status Date / Time erythromycin base Allergy Unknown Verified 03/18/21 09:19 Sulfa (Sulfonamide Allergy Rash/Hives Verified 03/18/21 09:19 Antibiotics) Surgical - Exam Vital Signs Temp Pulse Resp BP Pulse Ox 100.2 F H 64 18 158/56 100 03/18/21 03:10 03/18/21 03:10 03/18/21 03:10 03/18/21 03:10 03/18/21 03:10 General appearance: The patient is alert, oriented, appears in no acute di stress. HET: Head is normocephalic and atraumatic. Neck: Supple without lymphadenopathy. Trachea midline. Heart: S1 S2. Regular rate and rhythm. Lungs: Unlabored breathing. Clear to auscultation. Abdomen: Soft, nontender, nondistended. Extremities: Bilateral +2 pitting edema to lower extremities. Bluish/purple discoloration to distal aspect of toes. Neurological: No focal deficits. Results - Labs 03/19/21 05:20 03/19/21 05:20 Abnormal Lab Results - Last 24 Hours (Table) 03/18/21 Range/Units 20:06 Urine Protein 1+ H (Negative) Urine Ketones Trace H (Negative) Ur Leukocyte Esterase Trace H (Negative) Urine Bacteria Rare H (None) /hpf Hyaline Casts 23 H (0-2) /lpf Urine Mucus Rare H (None) /hpf Microbiology - Last 24 Hours (Table) 03/18/21 03:45 Blood Culture Gram Stain - Preliminary Blood 03/18/21 03:45 Blood Culture - Final Blood Assessment and Plan Assessment: 1. Bilateral lower extremity edema 2. Peripheral arterial disease with discoloration to toes, which appears to be chronic 3. Fever 4. Bacteremia with gram-negative rods 5. History of end-stage renal disease on hemodialysis 6. History atrial fibrillation Plan: 1. Elevate lower extremities 2. Continue IV antibiotics per recommendations from infectious disease 3. Recommend patient follow-up with vascular surgery outpatient for further workup and evaluation including angiogram for peripheral arterial disease 4. No plans on vascular surgical intervention at this time Thank you for this consultation, and allowing us take part in the plan of care of your patient during his hospital stay. The impression and plan of care has been dictated as directed. Dr. Salamanca I performed a history and examination of this patient, discussed the same with the dictator. I agree with the dictator's note ,documented as a scribe. Any additional findings or plans will be noted.
--- NOTE | 2021-03-19 17:47 | PN ---
PROGRESS NOTE DATE OF SERVICE: 03/19/2021 REASON FOR FOLLOWUP: Gram-negative bacteremia, concern for possible complicated infection. INTERVAL HISTORY: The patient is afebrile. This morning the patient is currently breathing comfortably. The patient denies having any chest pain. No shortness of breath or cough. Denies any abdominal pain. Still complaining of pain to the lower extremity. EXAM: Blood pressure 101/49, pulse of 61, temperature 98.2. He is 95% on 5 L nasal cannula. General description is an elderly male lying in bed in no distress. Respiratory system. Unlabored breathing, clear to auscultation anteriorly. Heart S1, S2. Regular rate and rhythm. Abdomen soft, no tenderness. Extremities: ( ) redness. LABS: Hemoglobin 9.8, white count 15.80, creatinine 3.36. Blood culture with Gram-negative bacilli. DIAGNOSTIC PATIENT: Patient with gram-negative bacteremia, high clinical suspicion for the ( ) catheter infection. Blood culture has been repeated. Antibiotic has been added and will be adjusted further based on the culture report. Continue supportive care. MMODL / IJN: [id number] /
[2021-03-19] MEDS: ACETAMINOPHEN TAB 325 MG TAB PO PRN (23:36)
[2021-03-20] MEDS: SODIUM CHLORIDE 0.9% 1,000 ML IV SCH (05:45)
[2021-03-20 09:07] LABS: Basophils # (A) 0.06 X 10*3/uL (0.00-0.10); Basophils % (A) 0.4 %; Eosinophils # (A) 0.34 X 10*3/uL (0.04-0.35); Eosinophils % (A) 2.5 %; HCT 32.1 % (39.6-50.0); HGB 10.1 g/dL (13.0-17.0); Lymphocytes # (A) 0.34 X 10*3/uL (0.90-5.00); Lymphocytes % (A) 2.5 %; MCH 32.2 pg (27.0-32.0); MCHC 31.5 g/dL (32.0-37.0); MCV 102.2 fL (80.0-97.0); Mean Platelet Volume 10.7 fL (9.5-12.2); Monocytes # (A) 0.95 X 10*3/uL (0.20-1.00); Monocytes % (A) 6.9 %; Neutrophils # (A) 11.56 X 10*3/uL (1.80-7.70); Neutrophils % (A) 84.2 %; Platelet Count 188 X 10*3/uL (140-440); RBC 3.14 X 10*6/uL (4.40-5.60); RDW 17.6 % (11.5-14.5); WBC 13.73 X 10*3/uL (4.50-10.00)
[2021-03-20 10:34] LABS: ALT 16 U/L (10-49); AST 45 U/L (14-35); African American GFR (CKD) 20.7 (60.0-200.0); Albumin 3.1 g/dL (3.8-4.9); Albumin/Globulin Ratio 1.29 (1.60-3.17); Alkaline Phosphatase 62 U/L (41-126); BUN/Creat Ratio 13.94 Ratio (12.00-20.00); Blood Urea Nitrogen 43.2 mg/dL (9.0-27.0); Calcium 8.4 mg/dL (8.7-10.3); Carbon Dioxide 20.1 mmol/L (21.6-31.8); Chloride 101 mmol/L (96-109); Globulin 2.4 g/dL (1.6-3.3); Glucose 104 mg/dL (70-110); Non-African American GFR(CKD) 17.9 (60.0-200.0); Potassium 5.3 mmol/L (3.5-5.5); Sodium 135 mmol/L (135-145); Total Bilirubin <0.20 mg/dL (0.30-1.20); Total Protein 5.5 g/dL (6.2-8.2)
[2021-03-20] MEDS ORDERED: FLUTICASONE 50MCG/SPRAY NASAL 16GM EA NOSTRIL PRN (11:08)
--- NOTE | 2021-03-20 12:12 | PN ---
PROGRESS NOTE Patient is seen for followup for end-stage renal disease. He was admitted to the hospital with fever and found to have cellulitis of lower extremities, mostly toes bilaterally. Currently maintained on antibiotics. Patient is now afebrile. He states he is feeling better. He tolerated his dialysis well yesterday with UF of about 1.1 L. PHYSICAL EXAMINATION: On examination today, blood pressure 126/51, heart rate 64 per minute. He is afebrile. Examination of the heart S1, S2. Examination of the lungs, bilateral breath sounds are heard. Abdomen is soft, nontender. Examination of lower extremities shows bilateral feet to be wrapped. EQUITY MANAGER exam grossly intact. LABS: Show sodium 135, potassium 5.3, chloride 101, BUN 43, creatinine 3.1, hemoglobin 10.1 g/dL. ASSESSMENT: 1. End-stage renal disease, maintained on hemodialysis on a Monday, Monday, Monday schedule. 2. Gram-negative bacteremia with blood culture growing Morganella morganii, maintained on antibiotics, cefepime. 3. Bilateral lower extremity ulcers in the feet and cellulitis. 4. Hypertension, blood pressure currently on the lower side. 5. Hypothyroidism maintained on supplementation. PLAN: Hemodialysis on Monday. Decrease IV fluids. Encourage increased oral intake. Continue antibiotics. MMODL / IJN: [id number] /
[2021-03-20] MEDS: CEFEPIME 1 GM in SODIUM CHLORIDE 0.9% 50 ML IVPB SCH ×2 (12:34→23:26)
[2021-03-20] MEDS: ESCITALOPRAM 10 MG TAB PO SCH (12:34)
--- NOTE | 2021-03-20 13:04 | P.PN ---
Subjective Progress Note Date: 03/20/21 Sean Lin, is an 80-year-old male who presented to [facility] emergency room with a chief complaint of weakness and febrile illness He was evaluated in the emergency room vital examination on presentation revealed a temperature of 100.2 pulse 64 respiration 18 blood pressure 158/56 p ulse ox 100% on 2 L nasal cannula Laboratory data revealed a white blood count of 15.6 hemoglobin 12.4 platelet count 323 sodium 136 potassium 4.5 BUN 31 creatinine 2.4 to Testing in the emergency room revealed chest x-ray revealed evidence of cardiomegaly otherwise no active cardiopulmonary disease, EKG revealed ventricular paced rhythm Patient was admitted to medical floor for further evaluation and treatment Past medical history is significant for end-stage renal disease on hemodialysis, chronic systolic congestive heart failure, history of cardiac arrhythmia status post biventricular pacemaker implant, underlying history of COPD, underlying history of paroxysmal atrial fibrillation, underlying history of coronary artery disease, underlying history of peripheral arterial disease On review of systems patient is alert and oriented 3 in no apparent distress he is complaining of fever and some chills, he is also complaining of right lower extremity pain otherwise he denies any complaints there is no headache or dizziness no chest pain no shortness of breath no cough no nausea or vomiting no abdominal pain no diarrhea no blood in the stools no burning with urination no frequency or urgency and no hematuria On 03/19/2021 patient is alert and oriented 3. Patient remains on IV Maxipime for cellulitis. Patient reports he does feel significantly improved. Nephrology services following patient to receive hemodialysis today. Vascular surgery and infectious disease services also consulted. At this time patient denies chest pain or shortness breath. Patient denies nausea vomiting or diarrhea. Patient denies any urinary burning or frequency. On 03/20/2021 Patient was seen and examined on the medical floor, he is alert and oriented x 3 in no distress, he denies any complaints there is no fever or chills no headache or dizziness no chest pain no shortness of breath no palpitation no cough no nausea or vomiting no abdominal pain no diarrhea no blood in the stools no burning with urination no frequency or urgency and no hematuria, there is no weakness or numbness in any of the extremities no change in vision speech or gait. Patient was evaluated by nephrology and is continued on hemodialysis, he was also evaluated by infectious disease and is currently maintained on IV cefepime, he was evaluated by vascular surgery and no recommendation for any intervention at this time. Objective - Vital Signs Vital signs: Vital Signs Temp 99.2 F 03/20/21 01:17 Pulse 65 03/20/21 01:17 Resp 22 03/20/21 01:17 BP 117/51 03/20/21 01:17 Pulse Ox 99 03/20/21 01:17 Intake & Output 03/19/21 03/20/21 03/20/21 18:59 06:59 18:59 Intake Total 1300 Output Total 1200 200 Balance 100 -200 Weight 89.5 kg Intake: Oral 1000 Hemodialysis 300 Output: Urine 100 200 Hemodialysis 1100 Other: Voiding Method Urinal # Voids 3 - Exam In general patient is alert and oriented x 3 in no distress HEENT head normocephalic and atraumatic Neck is supple no JVD no goiter no lymphadenopathy no carotid bruit Chest examination is clear to auscultation no crackles no wheezing Cardiac exam reveals regular heart sounds S1 and S2 no gallops no murmurs Abdomen is soft nontender no organomegaly with normal bowel sounds Extremity exam bilateral lower extremity erythema in the pretibial area right worse than left there are multiple ulcerations on the toes Neurological examination reveals no gross focal deficits - Labs CBC & Chem 7: 03/20/21 05:32 03/20/21 05:32 Labs: Abnormal Lab Results - Last 24 Hours (Table) 03/19/21 03/19/21 Range/Units 05:20 05:20 WBC 15.80 H (4.50-10.00) X 10*3/uL RBC 3.19 L (4.40-5.60) X 10*6/uL Hgb 9.8 L (13.0-17.0) g/dL Hct 32.7 L (39.6-50.0) % MCV 102.5 H (80.0-97.0) fL MCHC 30.0 L (32.0-37.0) g/dL RDW 17.7 H (11.5-14.5) % Immature Gran # 0.33 H (0.00-0.04) X 10*3/uL Neutrophils # 13.78 H (1.80-7.70) X 10*3/uL Lymphocytes # 0.34 L (0.90-5.00) X 10*3/uL Monocytes # 1.32 H (0.20-1.00) X 10*3/uL Eosinophils # 0.01 L (0.04-0.35) X 10*3/uL Carbon Dioxide 20.7 L (21.6-31.8) mmol/L Anion Gap 14.40 H (4.00-12.00) mmol/L BUN 43.8 H (9.0-27.0) mg/dL Creatinine 3.6 H (0.6-1.5) mg/dL Est GFR (CKD-EPI)AfAm 17.6 L (60.0-200.0) Est GFR (CKD-EPI)NonAf 15.1 L (60.0-200.0) Calcium 8.2 L (8.7-10.3) mg/dL Total Bilirubin 0.20 L (0.30-1.20) mg/dL Total Protein 5.0 L (6.2-8.2) g/dL Albumin 3.1 L (3.8-4.9) g/dL Microbiology - Last 24 Hours (Table) 03/19/21 05:20 Blood Culture - Preliminary Blood No Growth after 24 hours 03/18/21 03:45 Blood Culture Gram Stain - Preliminary Blood Blood Culture - Preliminary Gram Neg Bacilli Assessment and Plan Plan: Febrile illness with leukocytosis, likely related to lower extremity cellulitis, and possibly infected catheter patient has positive blood culture for gram- negative bacilli and currently he is maintained on IV cefepime, infectious disease following Underlying history of coronary artery disease and congestive heart failure stable cardiac-sunshine at this time will consult cardiology for follow-up End-stage renal disease maintained on hemodialysis consultation for nephrology was initiated Underlying history of chronic systolic congestive heart failure Underlying history of cardiac arrhythmia with third degree AV block status post biventricular pacemaker implant in September 2019 Underlying history of COPD Underlying history of paroxysmal atrial fibrillation Underlying history of peripheral arterial disease with moderate bilateral fem- pop disease At this time patient is admitted to medical floor Nephrology consultation requested for continuation of hemodialysis Infectious disease vascular surgery and cardiology consultation requested Prognosis is guarded due to advanced medical problems with multisystem i nvolvement
[2021-03-20] MEDS: HYDROcodone/APAP 7.5-325MG 1 EACH TAB PO PRN ×2 (15:01→21:13)
[2021-03-20] MEDS: FUROSEMIDE 40 MG TAB PO SCH (15:01)
[2021-03-20] MEDS: hydrALAZINE HCL 25 MG TAB PO SCH ×2 (15:01→21:13)
[2021-03-20] MEDS: carvediloL 12.5 MG TAB PO SCH (17:36)
--- NOTE | 2021-03-20 19:21 | PN ---
PROGRESS NOTE DATE OF SERVICE: 03/20/2021 REASON FOR FOLLOW UP: Gram-negative bacteremia, possible PermCath infection. INTERVAL HISTORY: The patient is afebrile, has been breathing comfortably. The patient denies having any chest pain. No shortness of breath or cough. Has been complaining of pain mostly to the right lower extremity. No abdominal pain, no diarrhea. PHYSICAL EXAMINATION: Blood pressure 121/55, pulse of 96, temperature is 97.5. He is 92% on 2 L nasal cannula. General description is an elderly male up in the bed in no distress. Respiratory system: Unlabored breathing, clear to auscultation anteriorly. Heart S1, S2. Regular rate and rhythm. Abdomen soft, no tenderness. LABS: Hemoglobin is 10.8, white count 13.73, creatinine 3.1. Blood culture repeat has been negative so far. DIAGNOSTIC IMPRESSION AND PLAN: Patient with Morganella bacteremia usually of the gut or urinary source. However, the patient's urine is negative. The blood cultures from the PermCath are negative as well. We will go ahead and obtain a CT of abdomen and pelvis with oral contrast to make sure no evidence of any abdominal source. Continue with cefepime to which the organism is sensitive and monitor clinical course closely. MMODL / IJN: [id number] /
[2021-03-20] MEDS: LEVOTHYROXINE 88 MCG TAB PO SCH (20:38)
[2021-03-20] MEDS: LOSARTAN 25 MG TAB PO SCH (20:38)
[2021-03-20] MEDS: APIXABAN 2.5 MG TABLET PO SCH (20:38)
[2021-03-20] MEDS: MULTIVITAMINS, THERA 1 EACH TAB PO SCH (20:38)
[2021-03-21] MEDS: MORPHINE SULFATE 2 MG/ML SYRINGE IVP PRN (00:45)
[2021-03-21] MEDS: IOPAMIDOL CONTRAST (ORAL USE) VIAL PO PRN ×2 (07:41→08:44)
[2021-03-21] MEDS: ESCITALOPRAM 10 MG TAB PO SCH (07:42)
[2021-03-21] MEDS: APIXABAN 2.5 MG TABLET PO SCH ×2 (07:42→20:30)
[2021-03-21] MEDS: carvediloL 12.5 MG TAB PO SCH ×2 (07:43→17:01)
[2021-03-21] MEDS: DOCUSATE 100 MG CAP PO SCH (07:43)
[2021-03-21] MEDS: allopurinoL 100 MG TAB PO SCH (07:43)
[2021-03-21] MEDS: polyethylene glycoL 3350 17 GM POWD.PACK PO SCH (07:43)
[2021-03-21] MEDS: FERROUS SULFATE 325 MG TAB PO SCH (07:43)
[2021-03-21] MEDS: hydrALAZINE HCL 25 MG TAB PO SCH ×3 (07:43→20:30)
[2021-03-21] MEDS: FUROSEMIDE 40 MG TAB PO SCH ×2 (07:43→17:01)
[2021-03-21 10:00] LABS: HCT 31.1 % (39.6-50.0); HGB 9.5 g/dL (13.0-17.0); MCH 31.1 pg (27.0-32.0); MCHC 30.5 g/dL (32.0-37.0); Platelet Count 189 X 10*3/uL (140-440); RBC 3.05 X 10*6/uL (4.40-5.60); RDW 17.2 % (11.5-14.5); WBC 13.17 X 10*3/uL (4.50-10.00)
--- NOTE | 2021-03-21 10:43 | P.PN ---
Subjective Progress Note Date: 03/21/21 eSan Lin, is an 80-year-old male who presented to [facility] emergency room with a chief complaint of weakness and febrile illness He was evaluated in the emergency room vital examination on presentation revealed a temperature of 100.2 pulse 64 respiration 18 blood pressure 158/56 p ulse ox 100% on 2 L nasal cannula Laboratory data revealed a white blood count of 15.6 hemoglobin 12.4 platelet count 323 sodium 136 potassium 4.5 BUN 31 creatinine 2.4 to Testing in the emergency room revealed chest x-ray revealed evidence of cardiomegaly otherwise no active cardiopulmonary disease, EKG revealed ventricular paced rhythm Patient was admitted to medical floor for further evaluation and treatment Past medical history is significant for end-stage renal disease on hemodialysis, chronic systolic congestive heart failure, history of cardiac arrhythmia status post biventricular pacemaker implant, underlying history of COPD, underlying history of paroxysmal atrial fibrillation, underlying history of coronary artery disease, underlying history of peripheral arterial disease On review of systems patient is alert and oriented 3 in no apparent distress he is complaining of fever and some chills, he is also complaining of right lower extremity pain otherwise he denies any complaints there is no headache or dizziness no chest pain no shortness of breath no cough no nausea or vomiting no abdominal pain no diarrhea no blood in the stools no burning with urination no frequency or urgency and no hematuria On 03/19/2021 patient is alert and oriented 3. Patient remains on IV Maxipime for cellulitis. Patient reports he does feel significantly improved. Nephrology services following patient to receive hemodialysis today. Vascular surgery and infectious disease services also consulted. At this time patient denies chest pain or shortness breath. Patient denies nausea vomiting or diarrhea. Patient denies any urinary burning or frequency. On 03/20/2021 Patient was seen and examined on the medical floor, he is alert and oriented x 3 in no distress, he denies any complaints there is no fever or chills no headache or dizziness no chest pain no shortness of breath no palpitation no cough no nausea or vomiting no abdominal pain no diarrhea no blood in the stools no burning with urination no frequency or urgency and no hematuria, there is no weakness or numbness in any of the extremities no change in vision speech or gait. Patient was evaluated by nephrology and is continued on hemodialysis, he was also evaluated by infectious disease and is currently maintained on IV cefepime, he was evaluated by vascular surgery and no recommendation for any intervention at this time. On 03/21/2021 patient alert and oriented 3 currently eating breakfast. Blood culture positive for Morganella morganii. Per infectious disease likely source urine or abdomen. Urine is clean. CT of abdomen has been ordered per infectious disease. Patient remains on IV antibiotics for lower infection of any cellulitis. Current white blood cell 13.17. Social work PT and OT also c onsulted for discharge planning. Per nursing staff patient is very weak will likely require ECF facility upon discharge. Objective - Vital Signs Vital signs: Vital Signs Temp 95.0 F L 03/21/21 07:04 Pulse 60 03/21/21 07:04 Resp 16 03/21/21 07:04 BP 125/55 03/21/21 07:04 Pulse Ox 100 03/21/21 07:04 Intake & Output 03/20/21 03/21/21 03/21/21 19:59 06:59 18:59 Intake Total Output Total Balance Intake: Oral Output: Urine Other: Voiding Method Urinal # Voids 100 - Exam In general patient is alert and oriented x 3 in no distress HEENT head normocephalic and atraumatic Neck is supple no JVD no goiter no lymphadenopathy no carotid bruit Chest examination is clear to auscultation no crackles no wheezing Cardiac exam reveals regular heart sounds S1 and S2 no gallops no murmurs Abdomen is soft nontender no organomegaly with normal bowel sounds Extremity exam bilateral lower extremity erythema in the pretibial area right worse than left there are multiple ulcerations on the toes Neurological examination reveals no gross focal deficits - Labs CBC & Chem 7: 03/21/21 05:38 03/20/21 05:32 Labs: Abnormal Lab Results - Last 24 Hours (Table) 03/21/21 Range/Units 05:38 WBC 13.17 H (4.50-10.00) X 10*3/uL RBC 3.05 L (4.40-5.60) X 10*6/uL Hgb 9.5 L (13.0-17.0) g/dL Hct 31.1 L (39.6-50.0) % MCV 102.0 H (80.0-97.0) fL MCHC 30.5 L (32.0-37.0) g/dL RDW 17.2 H (11.5-14.5) % Microbiology - Last 24 Hours (Table) 03/19/21 05:20 Blood Culture - Preliminary Blood No Growth after 48 hours 03/19/21 12:50 Blood Culture - Preliminary Blood No Growth after 24 hours 03/18/21 03:45 Blood Culture Gram Stain - Final Blood Blood Culture - Final Morganella morganii Assessment and Plan Plan: Febrile illness with leukocytosis, likely related to lower extremity cellulitis, and possibly infected catheter patient has positive blood culture for gram- negative bacilli and currently he is maintained on IV cefepime, infectious disease following Bacteremia with Morganella morganii. Infectious disease services are following. CT of abdomen has been ordered to investigate source of infection Underlying history of coronary artery disease and congestive heart failure stable cardiac-sunshine at this time will consult cardiology for follow-up End-stage renal disease maintained on hemodialysis consultation for nephrology was initiated Underlying history of chronic systolic congestive heart failure Underlying history of cardiac arrhythmia with third degree AV block status post biventricular pacemaker implant in September 2019 Underlying history of COPD Underlying history of paroxysmal atrial fibrillation Underlying history of peripheral arterial disease with moderate bilateral fem- pop disease At this time patient is admitted to medical floor Nephrology consultation requested for continuation of hemodialysis Infectious disease vascular surgery and cardiology consultation requested Positive bacteremia, CT of abdomen ordered per ID Prognosis is guarded due to advanced medical problems with multisystem in volvement
[2021-03-21 10:57] LABS: Basophils # (A) 0.05 X 10*3/uL (0.00-0.10); Basophils % (A) 0.4 %; Eosinophils # (A) 0.38 X 10*3/uL (0.04-0.35); Eosinophils % (A) 2.9 %; Lymphocytes # (A) 0.39 X 10*3/uL (0.90-5.00); Monocytes % (A) 6.1 %; Neutrophils # (A) 11.38 X 10*3/uL (1.80-7.70); Neutrophils % (A) 86.3 %
--- NOTE | 2021-03-21 10:59 | CT ---
EXAMINATION TYPE: CT abdomen pelvis wo con DATE OF EXAM: 03/21/2021 COMPARISON: Negative HISTORY: gram negative bacteremia CT DLP: 964.7 mGycm Automated exposure control for dose reduction was used. TECHNIQUE: Helical acquisition of images was performed from the lung bases through the pelvis. FINDINGS: There are bibasilar consolidative densities and moderate pleural effusions. There are no gallstones or biliary ductal dilatation. There is no organomegaly involving the liver, pancreas or spleen. There is no hydronephrosis. There are diffuse tiny scattered calcifications renal vascular calcificat ions. 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 Is no retroperiton eal adenopathy or hemorrhage. The bowel loops are normal in caliber and there is no evidence of obstruction. There is diverticulosi s of the colon but no evidence of diverticulitis. No inflammatory changes are identified in the mesen safia and there is no free intraperitoneal air or fluid. The osseous structures are intact. IMPRESSION: 1. Bibasilar consolidative density and pleural effusions suspicious for pneumonia. 2. Renal vascular calcifications and a few tiny renal calcifications but no hydronephrosis. 3. Minimal aneurysmal dilatation of the abdominal aorta. 4. No acute changes within the abdomen.
[2021-03-21 11:04] LABS: African American GFR (CKD) 17.3 (60.0-200.0); Albumin 3.1 g/dL (3.8-4.9); Albumin/Globulin Ratio 1.55 (1.60-3.17); Anion Gap 11.9 mmol/L (4.00-12.00); BUN/Creat Ratio 15.58 Ratio (12.00-20.00); Blood Urea Nitrogen 56.1 mg/dL (9.0-27.0); Calcium 8.3 mg/dL (8.7-10.3); Carbon Dioxide 21.1 mmol/L (21.6-31.8); Non-African American GFR(CKD) 14.9 (60.0-200.0); Potassium 5.2 mmol/L (3.5-5.5); Total Bilirubin 0.2 mg/dL (0.30-1.20); Total Protein 5.1 g/dL (6.2-8.2)
--- NOTE | 2021-03-21 11:49 | PN ---
PROGRESS NOTE Patient is seen for followup for end-stage renal disease. He is currently awake, comfortable, not in any acute distress. IV fluids were discontinued yesterday. This morning patient is noted to have a large blister on the lateral aspect of his left leg. His edema is definitely worse. The patient denies any chest pains or shortness or breath. Patient was admitted to the hospital with history of fever. His blood culture grew Morganella morganii. Source of infection is not clear yet. He does have an IJ PermCath. He does have cellulitis of his lower extremities with ulcers noted in his feet. Repeat blood cultures and blood cultures from the PermCath have been negative. PHYSICAL EXAMINATION: On examination today, blood pressure 125/55, heart rate 60 per minute. He is afebrile. Examination of the heart S1, S2. Examination of the lungs, decreased breath sounds at the bases. Abdomen is soft, nontender. Examination of lower extremities shows edema 2+ with large blister noted on his right leg on the lateral aspect. LAB: Show sodium 134, potassium 5.2, chloride of 101, CO2 21, creatinine 3.6. ASSESSMENT: 1. Endstage renal disease, on hemodialysis on a Monday, Monday, Monday schedule. 2. Volume overload. 3. Gram-negative bacteremia with Morganella morganii with repeat blood cultures negative, source unclear. Patient does have an IJ PermCath but repeat blood cultures and blood culture from the PermCath have been negative. He does have lower extremity cellulitis with ulcers noted on his toes, currently being followed by ID. PLAN: Hemodialysis in a.m. Increase UF to about 2-2.5 L as tolerated. MMODL / IJN: [id number] /
[2021-03-21] MEDS: CEFEPIME 1 GM in SODIUM CHLORIDE 0.9% 50 ML IVPB SCH ×2 (13:04→23:30)
[2021-03-21] MEDS: MULTIVITAMINS, THERA 1 EACH TAB PO SCH (20:30)
[2021-03-21] MEDS: HYDROcodone/APAP 7.5-325MG 1 EACH TAB PO PRN (20:30)
[2021-03-21] MEDS: LOSARTAN 25 MG TAB PO SCH (20:30)
[2021-03-21] MEDS: LEVOTHYROXINE 88 MCG TAB PO SCH (20:30)
--- NOTE | 2021-03-21 21:49 | PN ---
PROGRESS NOTE DATE OF SERVICE: 03/21/2021 REASON FOR FOLLOWUP: Morganella bacteremia. INTERVAL HISTORY: The patient is afebrile, has been breathing comfortably. Still complaining of pain to the right lower extremity. Patient did have a ruptured blister on the right lateral leg. No chest pain or shortness of breath. Occasional cough. No abdominal pain or diarrhea. PHYSICAL EXAMINATION: His blood pressure 132/61 with a pulse of 50, temperature 97.5. He is 99% on 3 L nasal cannula. General description is an elderly male lying in bed in no distress. Respiratory system: Unlabored breathing, decreased intensity of breath sounds. No wheeze. Heart S1, S2. Regular rate and rhythm. Abdomen soft, no tenderness. Right lateral leg with a bruise and a ruptured blister with some superficial ulceration. LABS: Hemoglobin 9.5, white count 13.17. Creatinine is 3.6. DIAGNOSTIC IMPRESSION AND PLAN: 1. Patient with Morganella bacteremia and concern for possible PermCath catheter obstruction. However, the blood cultures from the catheter has been negative with CT of abdomen and pelvis raising the possibility of pneumonia, even though he does not have significant respiratory symptoms. Patient is covered with cefepime. White count trending down. Fever is off. To continue with the cefepime while waiting for the condition to stabilize. 2. Right lower extremity wound from ruptured blister. Local care with dry Aquacel Silver dressing. Continue supportive care. MMODL / VINNYN: [id number] /
[2021-03-22] MEDS: ACETAMINOPHEN TAB 325 MG TAB PO PRN ×2 (05:59→22:06)
--- NOTE | 2021-03-22 08:41 | P.PN ---
Subjective Patient is seen in follow-up for end-stage renal disease. He is maintained on hemodialysis on Monday schedule. Blood culture positive for Morganella. On IV antibiotics. No chest pain or shortness of breath. No vomiting or diarrhea. Vital signs are stable. General: The patient appeared well nourished and normally developed. HEENT: Head exam is unremarkable. LUNGS: Breath sounds decreased. HEART: Rate and Rhythm are regular. ABDOMEN: Soft, no distention. EXTREMITITES: Trace edema. No drainage. Objective - Vital Signs Vital signs: Vital Signs Temp 97.6 F 03/22/21 08:00 Pulse 62 03/22/21 08:00 Resp 16 03/22/21 08:00 BP 121/55 03/22/21 08:00 Pulse Ox 96 03/22/21 08:00 Intake & Output 03/21/21 03/22/21 03/22/21 18:59 06:59 18:59 Intake Total 240 Output Total 100 Balance 140 Weight 87.5 kg 85.6 kg Intake: Oral 240 Output: Urine 100 Other: Voiding Method Urinal Urinal # Voids 0 3 # Bowel Movements 1 - Labs CBC & Chem 7: 03/21/21 05:38 03/21/21 05:38 Labs: Abnormal Lab Results - Last 24 Hours (Table) 03/21/21 03/21/21 Range/Units 05:38 05:38 WBC 13.17 H (4.50-10.00) X 10*3/uL RBC 3.05 L (4.40-5.60) X 10*6/uL Hgb 9.5 L (13.0-17.0) g/dL Hct 31.1 L (39.6-50.0) % MCV 102.0 H (80.0-97.0) fL MCHC 30.5 L (32.0-37.0) g/dL RDW 17.2 H (11.5-14.5) % Immature Gran # 0.17 H (0.00-0.04) X 10*3/uL Neutrophils # 11.38 H (1.80-7.70) X 10*3/uL Lymphocytes # 0.39 L (0.90-5.00) X 10*3/uL Eosinophils # 0.38 H (0.04-0.35) X 10*3/uL Sodium 134 L (135-145) mmol/L Carbon Dioxide 21.1 L (21.6-31.8) mmol/L BUN 56.1 H (9.0-27.0) mg/dL Creatinine 3.6 H (0.6-1.5) mg/dL Est GFR (CKD-EPI)AfAm 17.3 L (60.0-200.0) Est GFR (CKD-EPI)NonAf 14.9 L (60.0-200.0) Calcium 8.3 L (8.7-10.3) mg/dL Total Bilirubin 0.20 L (0.30-1.20) mg/dL AST 37 H (14-35) U/L Total Protein 5.1 L (6.2-8.2) g/dL Albumin 3.1 L (3.8-4.9) g/dL Albumin/Globulin Ratio 1.55 L (1.60-3.17) g/dL Microbiology - Last 24 Hours (Table) 03/19/21 05:20 Blood Culture - Preliminary Blood No Growth after 72 hours 03/19/21 12:50 Blood Culture - Preliminary Blood No Growth after 48 hours Assessment and Plan Plan: Assessment: 1. End-stage renal disease maintained on hemodialysis on Monday schedule. 2. Morganella bacteremia on IV antibiotics. Infectious disease following. Blood cultures from the permacath negative. No acute changes noted on CT. 3. Hypertension with chronic kidney disease. Stable. 4. Volume overload. Plan: Hemodialysis today.
[2021-03-22] MEDS: carvediloL 12.5 MG TAB PO SCH ×2 (09:06→17:47)
[2021-03-22] MEDS: allopurinoL 100 MG TAB PO SCH (09:06)
[2021-03-22] MEDS: ESCITALOPRAM 10 MG TAB PO SCH (09:06)
[2021-03-22] MEDS: FUROSEMIDE 40 MG TAB PO SCH ×2 (09:06→16:49)
[2021-03-22] MEDS: APIXABAN 2.5 MG TABLET PO SCH ×2 (09:07→22:06)
[2021-03-22] MEDS: DOCUSATE 100 MG CAP PO SCH (09:07)
[2021-03-22] MEDS: hydrALAZINE HCL 25 MG TAB PO SCH ×3 (09:07→22:06)
[2021-03-22] MEDS: FERROUS SULFATE 325 MG TAB PO SCH (09:07)
[2021-03-22] MEDS: polyethylene glycoL 3350 17 GM POWD.PACK PO SCH (09:07)
[2021-03-22] MEDS: HYDROcodone/APAP 7.5-325MG 1 EACH TAB PO PRN ×2 (09:17→18:33)
--- NOTE | 2021-03-22 09:46 | P.PN ---
Subjective Progress Note Date: 03/22/21 Sean Lin, is an 80-year-old male who presented to [facility] emergency room with a chief complaint of weakness and febrile illness He was evaluated in the emergency room vital examination on presentation revealed a temperature of 100.2 pulse 64 respiration 18 blood pressure 158/56 p ulse ox 100% on 2 L nasal cannula Laboratory data revealed a white blood count of 15.6 hemoglobin 12.4 platelet count 323 sodium 136 potassium 4.5 BUN 31 creatinine 2.4 to Testing in the emergency room revealed chest x-ray revealed evidence of cardiomegaly otherwise no active cardiopulmonary disease, EKG revealed ventricular paced rhythm Patient was admitted to medical floor for further evaluation and treatment Past medical history is significant for end-stage renal disease on hemodialysis, chronic systolic congestive heart failure, history of cardiac arrhythmia status post biventricular pacemaker implant, underlying history of COPD, underlying history of paroxysmal atrial fibrillation, underlying history of coronary artery disease, underlying history of peripheral arterial disease On review of systems patient is alert and oriented 3 in no apparent distress he is complaining of fever and some chills, he is also complaining of right lower extremity pain otherwise he denies any complaints there is no headache or dizziness no chest pain no shortness of breath no cough no nausea or vomiting no abdominal pain no diarrhea no blood in the stools no burning with urination no frequency or urgency and no hematuria On 03/19/2021 patient is alert and oriented 3. Patient remains on IV Maxipime for cellulitis. Patient reports he does feel significantly improved. Nephrology services following patient to receive hemodialysis today. Vascular surgery and infectious disease services also consulted. At this time patient denies chest pain or shortness breath. Patient denies nausea vomiting or diarrhea. Patient denies any urinary burning or frequency. On 03/20/2021 Patient was seen and examined on the medical floor, he is alert and oriented x 3 in no distress, he denies any complaints there is no fever or chills no headache or dizziness no chest pain no shortness of breath no palpitation no cough no nausea or vomiting no abdominal pain no diarrhea no blood in the stools no burning with urination no frequency or urgency and no hematuria, there is no weakness or numbness in any of the extremities no change in vision speech or gait. Patient was evaluated by nephrology and is continued on hemodialysis, he was also evaluated by infectious disease and is currently maintained on IV cefepime, he was evaluated by vascular surgery and no recommendation for any intervention at this time. On 03/21/2021 patient alert and oriented 3 currently eating breakfast. Blood culture positive for Morganella morganii. Per infectious disease likely source urine or abdomen. Urine is clean. CT of abdomen has been ordered per infectious disease. Patient remains on IV antibiotics for lower infection of any cellulitis. Current white blood cell 13.17. Social work PT and OT also c onsulted for discharge planning. Per nursing staff patient is very weak will likely require ECF facility upon discharge. On 03/22/2021 patient alert and oriented 3. Patient remains on IV antibiotics. labs Currently pending rate currently 97.6, heart rate 62, blood pressure 121/55 and patient oxygen saturation 96% on room air. Patient denies chest pain or shortness breath. Patient denies nausea vomiting or diarrhea. Patient denies any urinary burning or frequency Objective - Vital Signs Vital signs: Vital Signs Temp 97.6 F 03/22/21 08:00 Pulse 62 03/22/21 08:00 Resp 16 03/22/21 08:00 BP 121/55 03/22/21 08:00 Pulse Ox 96 03/22/21 08:00 Intake & Output 03/21/21 03/22/21 03/22/21 18:59 06:59 18:59 Intake Total 240 Output Total 100 Balance 140 Weight 87.5 kg 85.6 kg Intake: Oral 240 Output: Urine 100 Other: Voiding Method Urinal Urinal # Voids 0 3 # Bowel Movements 1 - Exam In general patient is alert and oriented x 3 in no distress HEENT head normocephalic and atraumatic Neck is supple no JVD no goiter no lymphadenopathy no carotid bruit Chest examination is clear to auscultation no crackles no wheezing Cardiac exam reveals regular heart sounds S1 and S2 no gallops no murmurs Abdomen is soft nontender no organomegaly with normal bowel sounds Extremity exam bilateral lower extremity erythema in the pretibial area right worse than left there are multiple ulcerations on the toes Neurological examination reveals no gross focal deficits - Labs CBC & Chem 7: 03/21/21 05:38 03/21/21 05:38 Labs: Abnormal Lab Results - Last 24 Hours (Table) 03/21/21 03/21/21 Range/Units 05:38 05:38 WBC 13.17 H (4.50-10.00) X 10*3/uL RBC 3.05 L (4.40-5.60) X 10*6/uL Hgb 9.5 L (13.0-17.0) g/dL Hct 31.1 L (39.6-50.0) % MCV 102.0 H (80.0-97.0) fL MCHC 30.5 L (32.0-37.0) g/dL RDW 17.2 H (11.5-14.5) % Immature Gran # 0.17 H (0.00-0.04) X 10*3/uL Neutrophils # 11.38 H (1.80-7.70) X 10*3/uL Lymphocytes # 0.39 L (0.90-5.00) X 10*3/uL Eosinophils # 0.38 H (0.04-0.35) X 10*3/uL Sodium 134 L (135-145) mmol/L Carbon Dioxide 21.1 L (21.6-31.8) mmol/L BUN 56.1 H (9.0-27.0) mg/dL Creatinine 3.6 H (0.6-1.5) mg/dL Est GFR (CKD-EPI)AfAm 17.3 L (60.0-200.0) Est GFR (CKD-EPI)NonAf 14.9 L (60.0-200.0) Calcium 8.3 L (8.7-10.3) mg/dL Total Bilirubin 0.20 L (0.30-1.20) mg/dL AST 37 H (14-35) U/L Total Protein 5.1 L (6.2-8.2) g/dL Albumin 3.1 L (3.8-4.9) g/dL Albumin/Globulin Ratio 1.55 L (1.60-3.17) g/dL Microbiology - Last 24 Hours (Table) 03/19/21 05:20 Blood Culture - Preliminary Blood No Growth after 72 hours 03/19/21 12:50 Blood Culture - Preliminary Blood No Growth after 48 hours Assessment and Plan Plan: Febrile illness with leukocytosis, likely related to lower extremity cellulitis, and possibly infected catheter patient has positive blood culture for gram- negative bacilli and currently he is maintained on IV cefepime, infectious disease following Bacteremia with Morganella morganii. Infectious disease services are following. 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
[2021-03-22 10:54] LABS: Basophils # (A) 0.04 X 10*3/uL (0.00-0.10); Basophils % (A) 0.3 %; Eosinophils # (A) 0.31 X 10*3/uL (0.04-0.35); Eosinophils % (A) 2.5 %; HCT 30.6 % (39.6-50.0); HGB 9.5 g/dL (13.0-17.0); Lymphocytes # (A) 0.37 X 10*3/uL (0.90-5.00); Lymphocytes % (A) 2.9 %; MCH 30.8 pg (27.0-32.0); MCV 99.4 fL (80.0-97.0); Mean Platelet Volume 11.5 fL (9.5-12.2); Monocytes % (A) 6.4 %; Neutrophils # (A) 10.86 X 10*3/uL (1.80-7.70); Neutrophils % (A) 86.5 %; Platelet Count 214 X 10*3/uL (140-440); RBC 3.08 X 10*6/uL (4.40-5.60); RDW 16.9 % (11.5-14.5); WBC 12.55 X 10*3/uL (4.50-10.00)
[2021-03-22 11:29] LABS: African American GFR (CKD) 14.8 (60.0-200.0); Albumin 3.3 g/dL (3.8-4.9); Albumin/Globulin Ratio 1.43 (1.60-3.17); BUN/Creat Ratio 17.76 Ratio (12.00-20.00); Blood Urea Nitrogen 72.8 mg/dL (9.0-27.0); Calcium 8.7 mg/dL (8.7-10.3); Carbon Dioxide 19.1 mmol/L (21.6-31.8); Globulin 2.3 g/dL (1.6-3.3); Non-African American GFR(CKD) 12.8 (60.0-200.0); Potassium 5.7 mmol/L (3.5-5.5); Total Bilirubin 0.3 mg/dL (0.30-1.20); Total Protein 5.6 g/dL (6.2-8.2)
[2021-03-22] MEDS: CEFEPIME 1 GM in SODIUM CHLORIDE 0.9% 50 ML IVPB SCH ×2 (13:11→23:28)
[2021-03-22] MEDS: LEVOTHYROXINE 88 MCG TAB PO SCH (22:06)
[2021-03-22] MEDS: MULTIVITAMINS, THERA 1 EACH TAB PO SCH (22:07)
[2021-03-22] MEDS: LOSARTAN 25 MG TAB PO SCH (22:07)
--- NOTE | 2021-03-22 23:13 | PN ---
PROGRESS NOTE DATE OF SERVICE: 03/22/2021 REASON FOR FOLLOWUP: Morganella bacteremia. INTERVAL HISTORY: Patient is afebrile. Has been breathing comfortably. No chest pain, shortness of breath or cough. No abdominal pain. Has been complaining of pain to the right lower extremity. PHYSICAL EXAMINATION: Blood pressure 131/60 with a pulse of 59, temperature 97.7. He is 97% on room air. General description is an elderly male lying in bed in no distress. Respiratory system: Unlabored breathing. Clear to auscultation. Heart S1, S2. Regular rate and rhythm. Abdomen soft, no tenderness. Right leg is currently dressed. No obvious drainage on the dressing. LABS: Hemoglobin 9.5, white count 12.5, creatinine is 4.1. DIAGNOSTIC IMPRESSION AND PLAN: Patient with Morganella bacteremia. Repeat blood culture negative. Initial concern for possible [id number] which has been ruled out with negative culture from the catheter. The patient is currently on cefepime to continue. Hopefully transition to oral antibiotic on discharge. Continue supportive care. MMODL / IJN: [id number] /
[2021-03-23] MEDS: polyethylene glycoL 3350 17 GM POWD.PACK PO SCH (08:04)
[2021-03-23] MEDS: DOCUSATE 100 MG CAP PO SCH (08:04)
[2021-03-23] MEDS: HYDROcodone/APAP 7.5-325MG 1 EACH TAB PO PRN ×2 (08:04→19:26)
[2021-03-23] MEDS: carvediloL 12.5 MG TAB PO SCH ×2 (08:05→17:22)
[2021-03-23] MEDS: FERROUS SULFATE 325 MG TAB PO SCH (08:05)
[2021-03-23] MEDS: APIXABAN 2.5 MG TABLET PO SCH ×2 (08:05→19:27)
[2021-03-23] MEDS: FUROSEMIDE 40 MG TAB PO SCH ×2 (08:05→17:22)
[2021-03-23] MEDS: ESCITALOPRAM 10 MG TAB PO SCH (08:05)
[2021-03-23] MEDS: allopurinoL 100 MG TAB PO SCH (08:05)
[2021-03-23] MEDS: hydrALAZINE HCL 25 MG TAB PO SCH ×3 (08:05→19:26)
--- NOTE | 2021-03-23 09:50 | P.PN ---
Subjective Patient is seen in follow-up for end-stage renal disease. He is maintained on hemodialysis on Monday schedule. Blood culture positive for Morganella. On IV antibiotics. No chest pain or shortness of breath. No vomiting or diarrhea. No problems with dialysis yesterday. Vital signs are stable. General: The patient appeared well nourished and normally developed. HEENT: Head exam is unremarkable. LUNGS: Breath sounds decreased. HEART: Rate and Rhythm are regular. ABDOMEN: Soft, no distention. EXTREMITITES: Trace edema. No drainage. Objective - Vital Signs Vital signs: Vital Signs Temp 97.6 F 03/23/21 07:30 Pulse 66 03/23/21 07:30 Resp 16 03/23/21 07:30 BP 154/60 03/23/21 07:30 Pulse Ox 97 03/23/21 07:30 Intake & Output 03/22/21 03/23/21 03/23/21 18:59 06:59 18:59 Intake Total 600 Output Total 2024 Balance -1425 Weight 91.5 kg Intake: Oral 300 Hemodialysis 300 Output: Urine 25 Hemodialysis 2000 Other: Voiding Method Urinal Urinal Urinal # Voids 2 - Labs CBC & Chem 7: 03/22/21 06:49 03/22/21 06:49 Labs: Abnormal Lab Results - Last 24 Hours (Table) 03/22/21 03/22/21 Range/Units 06:49 06:49 WBC 12.55 H (4.50-10.00) X 10*3/uL RBC 3.08 L (4.40-5.60) X 10*6/uL Hgb 9.5 L (13.0-17.0) g/dL Hct 30.6 L (39.6-50.0) % MCV 99.4 H (80.0-97.0) fL MCHC 31.0 L (32.0-37.0) g/dL RDW 16.9 H (11.5-14.5) % Immature Gran # 0.17 H (0.00-0.04) X 10*3/uL Neutrophils # 10.86 H (1.80-7.70) X 10*3/uL Lymphocytes # 0.37 L (0.90-5.00) X 10*3/uL Sodium 131 L (135-145) mmol/L Potassium 5.7 H (3.5-5.5) mmol/L Carbon Dioxide 19.1 L (21.6-31.8) mmol/L Anion Gap 13.00 H (4.00-12.00) mmol/L BUN 72.8 H (9.0-27.0) mg/dL Creatinine 4.1 H (0.6-1.5) mg/dL Est GFR (CKD-EPI)AfAm 14.8 L (60.0-200.0) Est GFR (CKD-EPI)NonAf 12.8 L (60.0-200.0) AST 70 H (14-35) U/L ALT 51 H (10-49) U/L Alkaline Phosphatase 142 H (41-126) U/L Total Protein 5.6 L (6.2-8.2) g/dL Albumin 3.3 L (3.8-4.9) g/dL Albumin/Globulin Ratio 1.43 L (1.60-3.17) g/dL Microbiology - Last 24 Hours (Table) 03/19/21 05:20 Blood Culture - Preliminary Blood No Growth after 96 hours 03/19/21 12:50 Blood Culture - Preliminary Blood No Growth after 72 hours Assessment and Plan Plan: Assessment: 1. End-stage renal disease maintained on hemodialysis on Monday schedule. 2. Morganella bacteremia on IV antibiotics. Infectious disease following. Blood cultures from the permacath negative. No acute changes noted on CT. 3. Hypertension with chronic kidney disease. Stable. 4. Volume overload. Improved postdialysis. Plan: Hemodialysis tomorrow. Morning labs pending.
[2021-03-23 11:06] LABS: African American GFR (CKD) 16.1 (60.0-200.0); Albumin 3.4 g/dL (3.8-4.9); Albumin/Globulin Ratio 1.47 (1.60-3.17); Anion Gap 15.6 mmol/L (4.00-12.00); BUN/Creat Ratio 17.23 Ratio (12.00-20.00); Calcium 8.7 mg/dL (8.7-10.3); Carbon Dioxide 17.5 mmol/L (21.6-31.8); Globulin 2.3 g/dL (1.6-3.3); Potassium 6.1 mmol/L (3.5-5.5); Total Bilirubin 0.3 mg/dL (0.30-1.20); Total Protein 5.7 g/dL (6.2-8.2)
[2021-03-23 11:37] LABS: Non-African American GFR(CKD) 13.9 (60.0-200.0)
[2021-03-23] MEDS: CEFEPIME 1 GM in SODIUM CHLORIDE 0.9% 50 ML IVPB SCH ×2 (11:38→23:06)
[2021-03-23] MEDS ORDERED: SODIUM POLYSTYRENE SULFONATE 15 GM/60 ML BOTTLE PO ONE (13:05)
--- NOTE | 2021-03-23 13:26 | PN ---
PROGRESS NOTE DATE OF SERVICE: 03/23/2021 REASON FOR FOLLOWUP: Morganella bacteremia. INTERVAL HISTORY: The patient is afebrile, has been breathing comfortably. No chest pain, shortness of breath or cough. No abdominal pain or worsening pain to the right lower leg. PHYSICAL EXAMINATION: Blood pressure 154/60 with a pulse of 56. Temperature is 97.6. He is 97% on room air. General description is an elderly male up in the bed in no distress. Respiratory system unlabored breathing, decreased breath sounds at the base. No wheeze. Heart S1, S2. Regular rate and rhythm. Abdomen soft, no tenderness. Right leg is currently dressed. No obvious drainage on the dressing. LABS: Potassium is 6.1. Creatinine is 3.8. DIAGNOSTIC IMPRESSION AND PLAN: 1. Patient with Morganella bacteremia in this patient whose repeat culture is negative. Patient is covered with cefepime; to continue for now. Hopefully transition to oral antibiotic on discharge. 2. Right lower extremity wound with concern for underlying ischemia. May benefit from angiogram. Discussed with the admitting physician. Continue with supportive care. MMODL / IJN: [id number] /
--- NOTE | 2021-03-23 17:02 | P.PN ---
Subjective Progress Note Date: 03/23/21 Sean Lin, is an 80-year-old male who presented to [facility] emergency room with a chief complaint of weakness and febrile illness He was evaluated in the emergency room vital examination on presentation revealed a temperature of 100.2 pulse 64 respiration 18 blood pressure 158/56 p ulse ox 100% on 2 L nasal cannula Laboratory data revealed a white blood count of 15.6 hemoglobin 12.4 platelet count 323 sodium 136 potassium 4.5 BUN 31 creatinine 2.4 to Testing in the emergency room revealed chest x-ray revealed evidence of cardiomegaly otherwise no active cardiopulmonary disease, EKG revealed ventricular paced rhythm Patient was admitted to medical floor for further evaluation and treatment Past medical history is significant for end-stage renal disease on hemodialysis, chronic systolic congestive heart failure, history of cardiac arrhythmia status post biventricular pacemaker implant, underlying history of COPD, underlying history of paroxysmal atrial fibrillation, underlying history of coronary artery disease, underlying history of peripheral arterial disease On review of systems patient is alert and oriented 3 in no apparent distress he is complaining of fever and some chills, he is also complaining of right lower extremity pain otherwise he denies any complaints there is no headache or dizziness no chest pain no shortness of breath no cough no nausea or vomiting no abdominal pain no diarrhea no blood in the stools no burning with urination no frequency or urgency and no hematuria On 03/19/2021 patient is alert and oriented 3. Patient remains on IV Maxipime for cellulitis. Patient reports he does feel significantly improved. Nephrology services following patient to receive hemodialysis today. Vascular surgery and infectious disease services also consulted. At this time patient denies chest pain or shortness breath. Patient denies nausea vomiting or diarrhea. Patient denies any urinary burning or frequency. On 03/20/2021 Patient was seen and examined on the medical floor, he is alert and oriented x 3 in no distress, he denies any complaints there is no fever or chills no headache or dizziness no chest pain no shortness of breath no palpitation no cough no nausea or vomiting no abdominal pain no diarrhea no blood in the stools no burning with urination no frequency or urgency and no hematuria, there is no weakness or numbness in any of the extremities no change in vision speech or gait. Patient was evaluated by nephrology and is continued on hemodialysis, he was also evaluated by infectious disease and is currently maintained on IV cefepime, he was evaluated by vascular surgery and no recommendation for any intervention at this time. On 03/21/2021 patient alert and oriented 3 currently eating breakfast. Blood culture positive for Morganella morganii. Per infectious disease likely source urine or abdomen. Urine is clean. CT of abdomen has been ordered per infectious disease. Patient remains on IV antibiotics for lower infection of any cellulitis. Current white blood cell 13.17. Social work PT and OT also c onsulted for discharge planning. Per nursing staff patient is very weak will likely require ECF facility upon discharge. On 03/22/2021 patient alert and oriented 3. Patient remains on IV antibiotics. labs Currently pending rate currently 97.6, heart rate 62, blood pressure 121/55 and patient oxygen saturation 96% on room air. Patient denies chest pain or shortness breath. Patient denies nausea vomiting or diarrhea. Patient denies any urinary burning or frequency. On 03/23/2021 patient is still complaining of lower extremity pain otherwise he states he is improving there is no fever or chills no headache or dizziness no chest pain no shortness of breath no cough no nausea or vomiting no chest pain no diarrhea no blood in the stools no burning with urination no frequency or urgency no hematuria Objective - Vital Signs Vital signs: Vital Signs Temp 97.6 F 03/23/21 07:30 Pulse 66 03/23/21 07:30 Resp 16 03/23/21 07:30 BP 154/60 03/23/21 07:30 Pulse Ox 97 03/23/21 07:30 Intake & Output 03/22/21 03/23/21 03/23/21 18:59 06:59 18:59 Intake Total 600 Output Total 2024 Balance -1425 Weight 91.5 kg Intake: Oral 300 Hemodialysis 300 Output: Urine 25 Hemodialysis 1999 Other: Voiding Method Urinal Urinal Urinal # Voids 2 - Exam In general patient is alert and oriented x 3 in no distress HEENT head normocephalic and atraumatic Neck is supple no JVD no goiter no lymphadenopathy no carotid bruit Chest examination is clear to auscultation no crackles no wheezing Cardiac exam reveals regular heart sounds S1 and S2 no gallops no murmurs Abdomen is soft nontender no organomegaly with normal bowel sounds Extremity exam bilateral lower extremity erythema in the pretibial area right worse than left there are multiple ulcerations on the toes Neurological examination reveals no gross focal deficits - Labs CBC & Chem 7: 03/22/21 06:49 03/23/21 05:38 Labs: Abnormal Lab Results - Last 24 Hours (Table) 03/22/21 03/22/21 Range/Units 06:49 06:49 WBC 12.55 H (4.50-10.00) X 10*3/uL RBC 3.08 L (4.40-5.60) X 10*6/uL Hgb 9.5 L (13.0-17.0) g/dL Hct 30.6 L (39.6-50.0) % MCV 99.4 H (80.0-97.0) fL MCHC 31.0 L (32.0-37.0) g/dL RDW 16.9 H (11.5-14.5) % Immature Gran # 0.17 H (0.00-0.04) X 10*3/uL Neutrophils # 10.86 H (1.80-7.70) X 10*3/uL Lymphocytes # 0.37 L (0.90-5.00) X 10*3/uL Sodium 131 L (135-145) mmol/L Potassium 5.7 H (3.5-5.5) mmol/L Carbon Dioxide 19.1 L (21.6-31.8) mmol/L Anion Gap 13.00 H (4.00-12.00) mmol/L BUN 72.8 H (9.0-27.0) mg/dL Creatinine 4.1 H (0.6-1.5) mg/dL Est GFR (CKD-EPI)AfAm 14.8 L (60.0-200.0) Est GFR (CKD-EPI)NonAf 12.8 L (60.0-200.0) AST 70 H (14-35) U/L ALT 51 H (10-49) U/L Alkaline Phosphatase 142 H (41-126) U/L Total Protein 5.6 L (6.2-8.2) g/dL Albumin 3.3 L (3.8-4.9) g/dL Albumin/Globulin Ratio 1.43 L (1.60-3.17) g/dL Microbiology - Last 24 Hours (Table) 03/19/21 05:20 Blood Culture - Preliminary Blood No Growth after 96 hours 03/19/21 12:50 Blood Culture - Preliminary Blood No Growth after 72 hours Assessment and Plan Plan: Febrile illness with leukocytosis, likely related to lower extremity cellulitis, and possibly infected catheter patient has positive blood culture for gram- negative bacilli and currently he is maintained on IV cefepime, infectious disease following Bacteremia with Morganella morganii. Infectious disease services are following. 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
[2021-03-23] MEDS ORDERED: LORazepam 1 MG TAB PO PRN (19:21)
[2021-03-23] MEDS: LOSARTAN 25 MG TAB PO SCH (19:27)
[2021-03-23] MEDS: LEVOTHYROXINE 88 MCG TAB PO SCH (19:27)
[2021-03-23] MEDS: MULTIVITAMINS, THERA 1 EACH TAB PO SCH (19:27)
[2021-03-24 06:23] LABS: Glucose,Whole Blood 78 mg/dL (75-99)
[2021-03-24 07:05] LABS: ALT 53 U/L (4-49); AST 66 U/L (17-59); African American GFR (CKD) 14 (>60 ml/min/1.73 sqM); Albumin 3.2 g/dL (3.5-5.0); Albumin/Globulin Ratio 1.1; Alkaline Phosphatase 124 U/L (38-126); Anion Gap 16 mmol/L; Blood Urea Nitrogen 88 mg/dL (9-20); Calcium 9.5 mg/dL (8.4-10.2); Carbon Dioxide 12 mmol/L (22-30); Chloride 104 mmol/L (98-107); Globulin 2.8 g/dL; Glucose 68 mg/dL (74-99); Non-African American GFR(CKD) 12 (>60 ml/min/1.73 sqM); Sodium 132 mmol/L (137-145); Total Bilirubin 0.8 mg/dL (0.2-1.3)
[2021-03-24 07:21] LABS: Anisocytosis Slight; HCT 31.9 % (39.0-53.0); HGB 10.4 gm/dL (13.0-17.5); Hypochromasia Slight; MCH 33.7 pg (25.0-35.0); MCHC 32.8 g/dL (31.0-37.0); Macrocytosis Moderate; Mean Platelet Volume 8.3; Platelet Count 311 k/uL (150-450); RDW 16.5 % (11.5-15.5); WBC 13.9 k/uL (3.8-10.6)
[2021-03-24 07:51] LABS: Potassium 6.5 mmol/L (3.5-5.1)
[2021-03-24] MEDS ORDERED: SODIUM BICARB 8.4% 50 ML SYR (1 MEQ/ML) IV STA (07:58)
[2021-03-24] MEDS ORDERED: CALCIUM GLUCONATE 1 GM in SODIUM CHLORIDE 0.9% 100 ML IVPB ONE (07:58)
[2021-03-24] MEDS: FERROUS SULFATE 325 MG TAB PO SCH (08:33)
[2021-03-24] MEDS: polyethylene glycoL 3350 17 GM POWD.PACK PO SCH (08:33)
[2021-03-24] MEDS: hydrALAZINE HCL 25 MG TAB PO SCH ×4 (08:33→20:32)
[2021-03-24] MEDS: carvediloL 12.5 MG TAB PO SCH ×2 (08:33→17:22)
[2021-03-24] MEDS: ESCITALOPRAM 10 MG TAB PO SCH (08:33)
[2021-03-24] MEDS: APIXABAN 2.5 MG TABLET PO SCH ×3 (08:34→20:32)
[2021-03-24] MEDS: DOCUSATE 100 MG CAP PO SCH (08:34)
[2021-03-24] MEDS: FUROSEMIDE 40 MG TAB PO SCH ×2 (08:34→15:12)
[2021-03-24] MEDS: allopurinoL 100 MG TAB PO SCH (08:35)
[2021-03-24] MEDS ORDERED: ALTEPLASE 2 MG VIAL (CATHFLO) MISCELLANE ONE ×2 (09:30→09:35)
--- NOTE | 2021-03-24 10:16 | P.PN ---
Subjective Patient is seen in follow-up for end-stage renal disease. He is maintained on hemodialysis on Monday schedule. Blood culture positive for Morganella. On IV antibiotics. Patient is confused this morning. Potassium level high at 6.5. It was high at 6.1 yesterday and I was not notified. He did receive extra late per the primary team. Vital signs are stable. General: Patient is confused and agitated. HEENT: Head exam is unremarkable. LUNGS: Breath sounds decreased. HEART: Rate and Rhythm are regular. ABDOMEN: Soft, no distention. EXTREMITITES: Trace edema. No drainage. Objective - Vital Signs Vital signs: Vital Signs Temp 97.5 F L 03/24/21 08:00 Pulse 95 03/24/21 08:00 Resp 18 03/24/21 08:00 BP 143/51 03/24/21 08:00 Pulse Ox 99 03/24/21 08:00 Intake & Output 03/23/21 03/24/21 03/24/21 18:59 06:59 18:59 Output Total 100 Balance -100 Weight 87.5 kg Output: Urine 100 Other: Voiding Method Urinal Urinal Diaper # Voids 1 - Labs CBC & Chem 7: 03/24/21 06:07 03/24/21 06:07 Labs: Abnormal Lab Results - Last 24 Hours (Table) 03/23/21 03/24/21 03/24/21 Range/Units 05:38 06:07 06:07 WBC 13.9 H (3.8-10.6) k/uL RBC 3.10 L (4.30-5.90) m/uL Hgb 10.4 L (13.0-17.5) gm/dL Hct 31.9 L (39.0-53.0) % MCV 103.0 H (80.0-100.0) fL RDW 16.5 H (11.5-15.5) % Sodium 131 L 132 L (135-145) mmol/L Potassium 6.1 H* 6.5 H* (3.5-5.5) mmol/L Carbon Dioxide 17.5 L 12 L (21.6-31.8) mmol/L Anion Gap 15.60 H (4.00-12.00) mmol/L BUN 66.0 H 88 H (9.0-27.0) mg/dL Creatinine 3.8 H 4.25 H (0.6-1.5) mg/dL Est GFR (CKD-EPI)AfAm 16.1 L (60.0-200.0) Est GFR (CKD-EPI)NonAf 13.9 L (60.0-200.0) Glucose 68 L (74-99) mg/dL AST 51 H 66 H (14-35) U/L ALT 52 H 53 H (10-49) U/L Alkaline Phosphatase 154 H (41-126) U/L Total Protein 5.7 L 6.0 L (6.2-8.2) g/dL Albumin 3.4 L 3.2 L (3.8-4.9) g/dL Albumin/Globulin Ratio 1.47 L (1.60-3.17) g/dL Microbiology - Last 24 Hours (Table) 03/19/21 05:20 Blood Culture - Preliminary Blood No Growth after 120 hours 03/19/21 12:50 Blood Culture - Preliminary Blood No Growth after 96 hours Assessment and Plan Plan: Assessment: 1. End-stage renal disease maintained on hemodialysis on Monday schedule. 2. Morganella bacteremia on IV antibiotics. Infectious disease following. Blood cultures from the permacath negative. No acute changes noted on CT. 3. Hypertension with chronic kidney disease. Stable. 4. Volume overload. Improved postdialysis. 5. Metabolic acidosis secondary to chronic kidney disease. Plan: Hemodialysis today. I notified the dialysis nurse and patient will be started on dialysis within the next half hour. 1 g IV calcium gluconate and 4 A of sodium bicarb IV push now. Stop losartan. Add oral bicarb as well. Repeat potassium level this evening
[2021-03-24] MEDS: SODIUM BICARBONATE TAB 650 MG TAB PO SCH ×3 (10:57→20:32)
[2021-03-24] MEDS: CEFEPIME 1 GM in SODIUM CHLORIDE 0.9% 50 ML IVPB SCH (11:56)
--- NOTE | 2021-03-24 12:20 | P.PN ---
Subjective Progress Note Date: 03/24/21 Sean Lin, is an 80-year-old male who presented to [facility] emergency room with a chief complaint of weakness and febrile illness He was evaluated in the emergency room vital examination on presentation revealed a temperature of 100.2 pulse 64 respiration 18 blood pressure 158/56 p ulse ox 100% on 2 L nasal cannula Laboratory data revealed a white blood count of 15.6 hemoglobin 12.4 platelet count 323 sodium 136 potassium 4.5 BUN 31 creatinine 2.4 to Testing in the emergency room revealed chest x-ray revealed evidence of cardiomegaly otherwise no active cardiopulmonary disease, EKG revealed ventricular paced rhythm Patient was admitted to medical floor for further evaluation and treatment Past medical history is significant for end-stage renal disease on hemodialysis, chronic systolic congestive heart failure, history of cardiac arrhythmia status post biventricular pacemaker implant, underlying history of COPD, underlying history of paroxysmal atrial fibrillation, underlying history of coronary artery disease, underlying history of peripheral arterial disease On review of systems patient is alert and oriented 3 in no apparent distress he is complaining of fever and some chills, he is also complaining of right lower extremity pain otherwise he denies any complaints there is no headache or dizziness no chest pain no shortness of breath no cough no nausea or vomiting no abdominal pain no diarrhea no blood in the stools no burning with urination no frequency or urgency and no hematuria On 03/19/2021 patient is alert and oriented 3. Patient remains on IV Maxipime for cellulitis. Patient reports he does feel significantly improved. Nephrology services following patient to receive hemodialysis today. Vascular surgery and infectious disease services also consulted. At this time patient denies chest pain or shortness breath. Patient denies nausea vomiting or diarrhea. Patient denies any urinary burning or frequency. On 03/20/2021 Patient was seen and examined on the medical floor, he is alert and oriented x 3 in no distress, he denies any complaints there is no fever or chills no headache or dizziness no chest pain no shortness of breath no palpitation no cough no nausea or vomiting no abdominal pain no diarrhea no blood in the stools no burning with urination no frequency or urgency and no hematuria, there is no weakness or numbness in any of the extremities no change in vision speech or gait. Patient was evaluated by nephrology and is continued on hemodialysis, he was also evaluated by infectious disease and is currently maintained on IV cefepime, he was evaluated by vascular surgery and no recommendation for any intervention at this time. On 03/21/2021 patient alert and oriented 3 currently eating breakfast. Blood culture positive for Morganella morganii. Per infectious disease likely source urine or abdomen. Urine is clean. CT of abdomen has been ordered per infectious disease. Patient remains on IV antibiotics for lower infection of any cellulitis. Current white blood cell 13.17. Social work PT and OT also c onsulted for discharge planning. Per nursing staff patient is very weak will likely require ECF facility upon discharge. On 03/22/2021 patient alert and oriented 3. Patient remains on IV antibiotics. labs Currently pending rate currently 97.6, heart rate 62, blood pressure 121/55 and patient oxygen saturation 96% on room air. Patient denies chest pain or shortness breath. Patient denies nausea vomiting or diarrhea. Patient denies any urinary burning or frequency. On 03/23/2021 patient is still complaining of lower extremity pain otherwise he states he is improving there is no fever or chills no headache or dizziness no chest pain no shortness of breath no cough no nausea or vomiting no chest pain no diarrhea no blood in the stools no burning with urination no frequency or urgency no hematuria On 03/24/2021 patient is confused. Per nursing staff patient will pull at lines an attempt to get out of bed. Patient currently getting hemodialysis. Potassium elevated at 65. Vascular surgery also consulted in regards to his leg. Patient remains on IV antibiotics with blood cell slightly increasing infectious disease services are following Objective - Vital Signs Vital signs: Vital Signs Temp 97.5 F L 03/24/21 08:00 Pulse 95 03/24/21 08:00 Resp 18 03/24/21 08:00 BP 143/51 03/24/21 08:00 Pulse Ox 99 03/24/21 08:00 Intake & Output 03/23/21 03/24/21 03/24/21 18:59 06:59 18:59 Output Total 100 Balance -100 Weight 87.5 kg Output: Urine 100 Other: Voiding Method Urinal Urinal Diaper # Voids 1 - Exam In general patient is alert and oriented x 3 in no distress HEENT head normocephalic and atraumatic Neck is supple no JVD no goiter no lymphadenopathy no carotid bruit Chest examination is clear to auscultation no crackles no wheezing Cardiac exam reveals regular heart sounds S1 and S2 no gallops no murmurs Abdomen is soft nontender no organomegaly with normal bowel sounds Extremity exam bilateral lower extremity erythema in the pretibial area right worse than left there are multiple ulcerations on the toes Neurological examination reveals no gross focal deficits - Labs CBC & Chem 7: 03/24/21 06:07 03/24/21 06:07 Labs: Abnormal Lab Results - Last 24 Hours (Table) 03/24/21 03/24/21 Range/Units 06:07 06:07 WBC 13.9 H (3.8-10.6) k/uL RBC 3.10 L (4.30-5.90) m/uL Hgb 10.4 L (13.0-17.5) gm/dL Hct 31.9 L (39.0-53.0) % MCV 103.0 H (80.0-100.0) fL RDW 16.5 H (11.5-15.5) % Sodium 132 L (137-145) mmol/L Potassium 6.5 H* (3.5-5.1) mmol/L Carbon Dioxide 12 L (22-30) mmol/L BUN 88 H (9-20) mg/dL Creatinine 4.25 H (0.66-1.25) mg/dL Glucose 68 L (74-99) mg/dL AST 66 H (17-59) U/L ALT 53 H (4-49) U/L Total Protein 6.0 L (6.3-8.2) g/dL Albumin 3.2 L (3.5-5.0) g/dL Microbiology - Last 24 Hours (Table) 03/19/21 05:20 Blood Culture - Preliminary Blood No Growth after 120 hours 03/19/21 12:50 Blood Culture - Preliminary Blood No Growth after 96 hours Assessment and Plan Plan: Febrile illness with leukocytosis, likely related to lower extremity cellulitis, and possibly infected catheter patient has positive blood culture for gram-negat emily bacilli and currently he is maintained on IV cefepime, infectious disease following Bacteremia with Morganella morganii. Infectious disease services are following. CT of abdomen has been ordered to investigate source of infection Underlying history of coronary artery disease and congestive heart failure stable cardiac-sunshine at this time will consult cardiology for follow-up End-stage renal disease maintained on hemodialysis consultation for nephrology was initiated Underlying history of chronic systolic congestive heart failure Underlying history of cardiac arrhythmia with third degree AV block status post biventricular pacemaker implant in September 2019 Underlying history of COPD Underlying history of paroxysmal atrial fibrillation Underlying history of peripheral arterial disease with moderate bilateral fem- pop disease At this time patient is admitted to medical floor Nephrology consultation requested for continuation of hemodialysis Infectious disease vascular surgery and cardiology consultation requested Positive bacteremia, Prognosis is guarded due to advanced medical problems with multisystem involvement
[2021-03-24 14:12] LABS: Band Neutrophils % 3 %; Lymphocytes # (M) 0.14 k/uL (1.0-4.8); Metamyelocytes # (M) 0.42 k/uL (0); Metamyelocytes % 3 %; Monocytes # (M) 0.83 k/uL (0-1.0); Myelocytes # (M) 0.28 k/uL (0); Myelocytes % 2 %; Neutrophils % (M) 87 %; Nucleated Red Blood Cells 0 /100 WBC (0-0); Total Cells Counted 200
--- NOTE | 2021-03-24 16:01 | CT ---
EXAMINATION TYPE: CT brain wo con DATE OF EXAM: 03/24/2021 COMPARISON: CT brain 09/12/2019 HISTORY: Altered mental status. CT DLP: 1331 mGycm Automated exposure control for dose reduction was used. Helical imaging through the brain. FINDINGS: There is extensive artifact. Periventricular white matter shows patchy low attenuation similar to uriel or exam. No evident hemorrhage or hydrocephalus. The calvarium is intact. There are cerebral vascular calcifications. Paranasal sinuses and mastoid air cells as visualized are stable. IMPRESSION: FINDINGS ARE SIMILAR TO PRIOR EXAM. AGE-RELATED CHANGES OF ATROPHY AND CHRONIC SMALL VESSEL ISCHEMIA NOTED
--- NOTE | 2021-03-24 16:25 | PN ---
PROGRESS NOTE DATE OF SERVICE: 03/24/2021 REASON FOR FOLLOWUP: Morganella bacteremia. INTERVAL HISTORY: The patient did have significant mental status changes. Apparently the patient did pull off his IV. The patient is afebrile, though. Not a very good historian this morning. No vomiting, diarrhea or any other changes reported by the nursing staff. PHYSICAL EXAMINATION: Blood pressure 143/51 with a pulse of 95, temperature 96.5. He is 99% on 2 L nasal cannula. General description is an elderly male lying in bed in no distress. Respiratory system: Unlabored breathing, decreased breath sounds at the base. No wheeze. Heart S1, S2. Regular rate and rhythm. Abdomen soft, no tenderness. Right leg is currently dressed. No obvious drainage on the dressing. LABS: Hemoglobin is 10.4, white count 13.9. Potassium is 6.5. DIAGNOSTIC IMPRESSION AND PLAN: Patient with Morganella bacteremia, initial concerning for possible cath infection. However, the cultures from the catheter were negative. CT of abdomen and pelvis did not show any acute Gram-negative patient is covered with cefepime with significant changes in mentation without any fever; possibly metabolic. Continue cefepime while inpatient. Continue with supportive care. MMODL / IJN: [id number] /
--- NOTE | 2021-03-24 16:52 | P.CNNES ---
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 Neurology is consulted for altered mental status. History is obtained from medical records and leanna ent's nurse. Per the nurse patient has Morganella bacteremia and is being treated for it. Infection disease is on board. And mentation was he was doing well this past Monday but the monday he was confused and has been hostile. Per nurse has has blackish discoloration of his right toes. She stated patient does not have any seizure-like episodes. Some of the work-up in the hospital consisted of: On initial presentation he had a fever of 100.2 once but has no further fevers since admission. Otherwise his most recent vitals: blood pressure 143/51, HR 95, RR 18, Pulse oxygen 99% on 2L nasal canuli. His white blood cells on presentation was 15.6K and most current is 13.9 and is predominately neutrophilic. His sodium is 136 and most recent is 132. K+ is 6.5. His creatnine on presentation is 2.42 and is trending up and most recent is 4.25 He had episode of serum glucose of 68 on 03/24/2021 at 6:07am. most recent AST 66 and ALT 53. Coronavirus is not detected. His blood culture was positive for Morganella bacterima and repeat is negative. Infection disease is on board and they have patient on Cefepime. They feel patient has right lower extremity wound with concern for underlying ischemia Review of Systems Review of system: is limited because of his condition. Past Medical History Past Medical History: Atrial Fibrillation, Blood Disorder, Heart Failure, COPD, GERD/Reflux, GI Bleed, Hypertension, Thyroid Disorder Additional Past Medical History / Comment(s): ANEMIA, HIATAL HERNIA (PER EGD) arrhythmia, skin cancer - RUE, LUE, R nondenominational, Nose (sees Dr. Cortez) PAST RT LEG ULCERS, chf History of Any Multi-Drug Resistant Organisms: VRE Date of last positivie culture/infection: 02/24/15 MDRO Source:: Right leg wound Past Surgical History: Adenoidectomy, Pacemaker, Tonsillectomy Additional Past Surgical History / Comment(s): hemorrhoidectomy, tennis elbow, EGD. Past Anesthesia/Blood Transfusion Reactions: No Reported Reaction Additional Past Anesthesia/Blood Transfusion Reaction / Comment(s): Pt has received blood in past without reaction. Type of Cardiac Device: Permanent Pacemaker Device Placement Date:: 09/28/19 Past Psychological History: No Psychological Hx Reported Smoking Status: Former smoker Past Alcohol Use History: None Reported Past Drug Use History: None Reported - Past Family History Mother Family Medical History: No Reported History Additional Family Medical History / Comment(s): Mother was healthy and lived to be 97yrs old. Daughter(s) History Unknown: Yes Family Medical History: Cancer Additional Family Medical History / Comment(s): uterine/lung/brain CA - current terminal Father History Unknown: Yes Family Medical History: Cancer Additional Family Medical History / Comment(s): prostate CA - from Medications and Allergies Home Medications Medication Instructions Recorded Confirmed Type Multivitamin [Men's Multi-Vitamin] 1 tab PO HS 12/13/14 03/18/21 History Levothyroxine Sodium [Synthroid] 88 mcg PO HS 08/30/19 03/18/21 History Losartan [Cozaar] 25 mg PO HS tab 10/02/19 03/18/21 Rx Allopurinol [Zyloprim] 100 mg PO DAILY 09/25/20 03/18/21 History Apixaban [Eliquis] 2.5 mg PO BID tablet 10/19/20 03/18/21 Rx Escitalopram [Lexapro] 10 mg PO DAILY tab 10/19/20 03/18/21 Rx Furosemide [Lasix] 40 mg PO BID 30 Days #60 tablet 10/19/20 03/18/21 Rx hydrALAZINE HCL [Apresoline] 25 mg PO TID tab 10/19/20 03/18/21 Rx polyethylene glycoL 3350 [Miralax] 17 gm PO DAILY powd.pack 10/19/20 03/18/21 Rx Carvedilol [Coreg] 12.5 mg PO BID 03/18/21 03/18/21 History Docusate [Colace] 100 mg PO DAILY 03/18/21 03/18/21 History Ferrous Sulfate [Feosol] 325 mg PO DAILY 03/18/21 03/18/21 History Fluticasone Nasal [place] [Flonase 1 - 2 spray EA NOSTRIL DAILY PRN 03/18/21 03/18/21 History Nasal [place]] Allergies Allergy/AdvReac Type Severity Reaction Status Date / Time erythromycin base Allergy Unknown Verified 03/18/21 09:19 Sulfa (Sulfonamide Allergy Rash/Hives Verified 03/18/21 09:19 Antibiotics) Physical Examination - Vital Signs Vital Signs: Vital Signs Temp Pulse Resp BP BP Pulse Ox 03/24/21 08:00 97.5 F L 95 18 143/51 99 03/24/21 03:00 18 03/24/21 00:52 98.7 F 61 18 142/65 95 03/23/21 20:24 97.6 F 62 18 151/55 96 03/23/21 20:00 18 03/23/21 15:00 97.8 F 61 16 172/54 97 Intake and Output 03/23/21 03/24/21 03/24/21 22:59 06:59 14:59 Output Total 100 Balance -100 Output: Urine 100 Other: Voiding Method Urinal Urinal Diaper # Voids 1 Weight 87.5 kg GENERAL: The patient is lying in bed and is in severe acute distress. CHEST: The heart rate is regular rate rhythm. No murmurs to auscultation. LUNG: Clear to auscultation bilaterally no wheezing noted throughout. Not labored breathing. ABDOMEN/GI: Bowel sounds present in all 4 quadrants. No tenderness to palpation throughout. INTEGUMENTARY: He has erythema of right lower extremity from calf down to his toes with bluish discoloration of most of toes of right foot (1st to 4th toes). It is cold to touch over the right foot. NEUROLOGICAL: Limited because of his condition. Higher mental function: The patient is awake but not verbally responsive. He is just screaming in pain. He is not following commands or communicating. Cranial nerves: The pupils are round, equal and reactive to light. Visual snider could not be assessed. Extraocular movement is hard to asses but he is tracking throughout the room. No facial weakness. Otherwise rest of cranial nerves could not be assessed. Motor: Gait is deferred. The strength is hard to assess because of his cooperation. He is able to lift bilateral upper extremities above gravity with no focality and is lifting his left lower extremity above gravity while lower whenever I touch it he screams in pain. Cerebellum: Could not asses. Sensation: Could not asses. Reflexes (right/left): Could not asses. Plantars Is mute bilaterally. Results - Laboratory Findings CBC and BMP: 03/24/21 06:07 03/24/21 06:07 Abnormal Lab Findings: Abnormal Labs 03/18/21 03/18/21 03/18/21 03:28 03:28 03:28 WBC 15.6 H RBC 3.92 L Hgb 12.4 L Hct 38.5 L MCV MCH MCHC RDW 17.3 H Absolute Nucleated RBC Immature Gran # Neutrophils # 14.5 H Lymphocytes # 0.4 L Monocytes # Eosinophils # NRBC/100 WBC Diff PT 19.5 H INR 2.0 H Sodium 136 L Potassium Carbon Dioxide Anion Gap BUN 31 H Creatinine 2.42 H Est GFR (CKD-EPI)AfAm Est GFR (CKD-EPI)NonAf Glucose 101 H Calcium Total Bilirubin AST ALT Alkaline Phosphatase Lactate Dehydrogenase 645 H C-Reactive Protein 1.5 H Total Protein Albumin Albumin/Globulin Ratio Urine Protein Urine Ketones Ur Leukocyte Esterase Urine Bacteria Hyaline Casts Urine Mucus 03/18/21 03/19/21 03/19/21 20:06 05:20 05:20 WBC 15.80 H RBC 3.19 L Hgb 9.8 L Hct 32.7 L MCV 102.5 H MCH MCHC 30.0 L RDW 17.7 H Absolute Nucleated RBC Immature Gran # 0.33 H Neutrophils # 13.78 H Lymphocytes # 0.34 L Monocytes # 1.32 H Eosinophils # 0.01 L NRBC/100 WBC Diff PT INR Sodium Potassium Carbon Dioxide 20.7 L Anion Gap 14.40 H BUN 43.8 H Creatinine 3.6 H Est GFR (CKD-EPI)AfAm 17.6 L Est GFR (CKD-EPI)NonAf 15.1 L Glucose Calcium 8.2 L Total Bilirubin 0.20 L AST ALT Alkaline Phosphatase Lactate Dehydrogenase C-Reactive Protein Total Protein 5.0 L Albumin 3.1 L Albumin/Globulin Ratio Urine Protein 1+ H Urine Ketones Trace H Ur Leukocyte Esterase Trace H Urine Bacteria Rare H Hyaline Casts 23 H Urine Mucus Rare H 03/20/21 03/20/21 03/21/21 05:32 05:32 05:38 WBC 13.73 H 13.17 H RBC 3.14 L 3.05 L Hgb 10.1 L 9.5 L Hct 32.1 L 31.1 L MCV 102.2 H 102.0 H MCH 32.2 H MCHC 31.5 L 30.5 L RDW 17.6 H 17.2 H Absolute Nucleated RBC 0.02 H Immature Gran # 0.48 H 0.17 H Neutrophils # 11.56 H 11.38 H Lymphocytes # 0.34 L 0.39 L Monocytes # Eosinophils # 0.38 H NRBC/100 WBC Diff 0.1 H PT INR Sodium Potassium Carbon Dioxide 20.1 L Anion Gap 13.90 H BUN 43.2 H Creatinine 3.1 H Est GFR (CKD-EPI)AfAm 20.7 L Est GFR (CKD-EPI)NonAf 17.9 L Glucose Calcium 8.4 L Total Bilirubin <0.20 L AST 45 H ALT Alkaline Phosphatase Lactate Dehydrogenase C-Reactive Protein Total Protein 5.5 L Albumin 3.1 L Albumin/Globulin Ratio 1.29 L Urine Protein Urine Ketones Ur Leukocyte Esterase Urine Bacteria Hyaline Casts Urine Mucus 03/21/21 03/22/21 03/22/21 05:38 06:49 06:49 WBC 12.55 H RBC 3.08 L Hgb 9.5 L Hct 30.6 L MCV 99.4 H MCH MCHC 31.0 L RDW 16.9 H Absolute Nucleated RBC Immature Gran # 0.17 H Neutrophils # 10.86 H Lymphocytes # 0.37 L Monocytes # Eosinophils # NRBC/100 WBC Diff PT INR Sodium 134 L 131 L Potassium 5.7 H Carbon Dioxide 21.1 L 19.1 L Anion Gap 13.00 H BUN 56.1 H 72.8 H Creatinine 3.6 H 4.1 H Est GFR (CKD-EPI)AfAm 17.3 L 14.8 L Est GFR (CKD-EPI)NonAf 14.9 L 12.8 L Glucose Calcium 8.3 L Total Bilirubin 0.20 L AST 37 H 70 H ALT 51 H Alkaline Phosphatase 142 H Lactate Dehydrogenase C-Reactive Protein Total Protein 5.1 L 5.6 L Albumin 3.1 L 3.3 L Albumin/Globulin Ratio 1.55 L 1.43 L Urine Protein Urine Ketones Ur Leukocyte Esterase Urine Bacteria Hyaline Casts Urine Mucus 03/23/21 03/24/21 03/24/21 05:38 06:07 06:07 WBC 13.9 H RBC 3.10 L Hgb 10.4 L Hct 31.9 L MCV 103.0 H MCH MCHC RDW 16.5 H Absolute Nucleated RBC Immature Gran # Neutrophils # Lymphocytes # Monocytes # Eosinophils # NRBC/100 WBC Diff PT INR Sodium 131 L 132 L Potassium 6.1 H* 6.5 H* Carbon Dioxide 17.5 L 12 L Anion Gap 15.60 H BUN 66.0 H 88 H Creatinine 3.8 H 4.25 H Est GFR (CKD-EPI)AfAm 16.1 L Est GFR (CKD-EPI)NonAf 13.9 L Glucose 68 L Calcium Total Bilirubin AST 51 H 66 H ALT 52 H 53 H Alkaline Phosphatase 154 H Lactate Dehydrogenase C-Reactive Protein Total Protein 5.7 L 6.0 L Albumin 3.4 L 3.2 L Albumin/Globulin Ratio 1.47 L Urine Protein Urine Ketones Ur Leukocyte Esterase Urine Bacteria Hyaline Casts Urine Mucus Assessment and Plan Assessment: Altered mental status due to multiple factorial: Metabolic encephalopathy (ESRD, hypoglycemia, slight elevated LFT's) and septic encephalopathy from underlying bactermia Morganella Bactremia Hypoglycemia (as low as 68) End-stage renal disease and currently on dialysis (history of chronic kidney disease and it appears during this admission he started getting dialysis) Possible right lower extremity ischemia Metabolic acidosis secondary due to chronic kidney disease Mild hyponatremia Mild elevated liver function tests Story of third degree AV block status post pacemaker History of proximal atrial fibrillation on Eliquis History of peripheral vascular disease History of coronary artery disease History of congestive heart failure Plan: Ordered CT of the head: It is reported as findings are similar to prior exam. Age-related changes of atrophy and chronic small vessel ischemic noted. Ordered TSH level. Ammonia level is ordered. I will attempt to get an routine EEG tomorrow. Continue neuro checks Infection disease team is on board Nephrology team is on board Recommend consulting vascular surgery team. Dr. Henriquez is on board for peripheral artery disease. Please avoid any hypoglycemia event. Will defer pain management to the primary team. We'll defer the rest of the medical management to the primary team Condition: Is very guarded. The plan is discussed with the patient's nurse. Thank you for the consultation. Ish Deshpande M.D. Neuro-hospitalist Time with Patient: Greater than 30
[2021-03-24 17:15] LABS: Lactic Acid, Venous 1.2 mmol/L (0.7-2.0)
[2021-03-24 17:16] LABS: Potassium 4.3 mmol/L (3.5-5.1)
[2021-03-24] MEDS: LEVOTHYROXINE 88 MCG TAB PO SCH ×2 (20:08→20:32)
[2021-03-24] MEDS: MULTIVITAMINS, THERA 1 EACH TAB PO SCH ×2 (20:08→20:32)
[2021-03-24] MEDS: HYDROcodone/APAP 7.5-325MG 1 EACH TAB PO PRN (20:08)
[2021-03-25] MEDS: CEFEPIME 1 GM in SODIUM CHLORIDE 0.9% 50 ML IVPB SCH ×2 (00:36→12:38)
--- NOTE | 2021-03-25 09:55 | P.PN ---
Subjective Patient is seen in follow-up for end-stage renal disease. He is maintained on hemodialysis on Monday schedule. Blood culture positive for Morganella. On IV antibiotics. Patient may confused. Potassium level improved postdialysis yesterday. Vital signs are stable. General: Patient is confused and agitated. HEENT: Head exam is unremarkable. LUNGS: Breath sounds decreased. HEART: Rate and Rhythm are regular. ABDOMEN: Soft, no distention. EXTREMITITES: Trace edema. No drainage. Objective - Vital Signs Vital signs: Vital Signs Temp 97.9 F 03/25/21 08:00 Pulse 64 03/25/21 08:00 Resp 16 03/25/21 08:00 BP 150/56 03/25/21 08:00 Pulse Ox 96 03/25/21 08:00 Intake & Output 03/24/21 03/25/21 03/25/21 18:59 06:59 18:59 Intake Total 300 Output Total 3000 Balance -2700 Weight 84.5 kg 84.5 kg Intake: Hemodialysis 300 Output: Hemodialysis 3000 Other: Voiding Method Diaper Diaper # Voids 1 2 # Bowel Movements 1 - Labs CBC & Chem 7: 03/24/21 06:07 03/24/21 16:41 Labs: Abnormal Lab Results - Last 24 Hours (Table) 03/24/21 Range/Units 06:07 Neutrophils # (Manual) 12.50 H (1.3-7.7) k/uL Lymphocytes # (Manual) 0.14 L (1.0-4.8) k/uL Metamyelocytes # (Man) 0.42 H (0) k/uL Myelocytes # (Manual) 0.28 H (0) k/uL Microbiology - Last 24 Hours (Table) 03/19/21 05:20 Blood Culture - Final Blood No Growth after 144 hours 03/19/21 12:50 Blood Culture - Preliminary Blood No Growth after 120 hours Assessment and Plan Plan: Assessment: 1. End-stage renal disease maintained on hemodialysis on Monday schedule. 2. Morganella bacteremia on IV antibiotics. Infectious disease following. Blood cultures from the permacath negative. No acute changes noted on CT. 3. Hypertension with chronic kidney disease. Stable. 4. Volume overload. Improved postdialysis. 5. Metabolic acidosis secondary to chronic kidney disease. Expect improvement postdialysis. On oral bicarb as well. Plan: Hemodialysis tomorrow. Stop losartan March 24.
--- NOTE | 2021-03-25 10:46 | P.PN ---
Subjective Progress Note Date: 03/25/21 The patient is seen at bedside and per the patient nurse he continues to be in pain and confused. No jerking of any extremities is noted. Objective - Vital Signs Vital signs: Vital Signs Temp 97.9 F 03/25/21 08:00 Pulse 64 03/25/21 08:00 Resp 16 03/25/21 08:00 BP 150/56 03/25/21 08:00 Pulse Ox 96 03/25/21 08:00 Intake & Output 03/24/21 03/25/21 03/25/21 18:59 06:59 18:59 Intake Total 300 Output Total 3000 Balance -2700 Weight 84.5 kg 84.5 kg Intake: Hemodialysis 300 Output: Hemodialysis 3000 Other: Voiding Method Diaper Diaper # Voids 1 2 # Bowel Movements 1 - Exam GENERAL: The patient is lying in bed and is in moderate acute distress. INTEGUMENTARY: He has erythema of right lower extremity from calf down to his toes with bluish discoloration of most of toes of right foot (1st to 4th toes). It is cold to touch over the right foot. NEUROLOGICAL: Limited because of his condition. Higher mental function: The patient is awake but not verbally responsive. He is not following commands or verbalizing. He screams in pain when touching the right lower extremity. Cranial nerves: The pupils are round, equal and reactive to light. Visual snider could not be assessed. Extraocular movement is hard to asses but he is tracking throughout the room. No facial weakness. Otherwise rest of cranial nerves could not be assessed. Motor: Gait is deferred. The strength is hard to assess because of his cooperation. He is able to lift bilateral upper extremities above gravity with no focality and is lifting his left lower extremity above gravity while lower whenever I touch it he screams in pain. Cerebellum: Could not asses. Sensation: Could not asses. Reflexes (right/left): Could not asses. Plantars Is mute bilaterally. WORK-UP: CT of the head: It is reported as findings are similar to prior exam. Age- related changes of atrophy and chronic small vessel ischemic noted. TSH: 2.780 Calcium is 9.5 Ammonia level <9 Esqueda Virus is not detected. - Labs CBC & Chem 7: 03/24/21 06:07 03/24/21 16:41 Labs: Abnormal Lab Results - Last 24 Hours (Table) 03/24/21 Range/Units 06:07 Neutrophils # (Manual) 12.50 H (1.3-7.7) k/uL Lymphocytes # (Manual) 0.14 L (1.0-4.8) k/uL Metamyelocytes # (Man) 0.42 H (0) k/uL Myelocytes # (Manual) 0.28 H (0) k/uL Microbiology - Last 24 Hours (Table) 03/19/21 05:20 Blood Culture - Final Blood No Growth after 144 hours 03/19/21 12:50 Blood Culture - Preliminary Blood No Growth after 120 hours Assessment and Plan Assessment: Altered mental status due to multiple factorial: Metabolic encephalopathy (ESRD, hypoglycemia, slight elevated LFT's) and septic encephalopathy from underlying bactermia Morganella Bactremia Hypoglycemia (as low as 68) End-stage renal disease and currently on dialysis (history of chronic kidney disease and it appears during this admission he started getting dialysis) Possible right lower extremity ischemia Metabolic acidosis secondary due to chronic kidney disease Mild hyponatremia Mild elevated liver function tests Story of third degree AV block status post pacemaker History of proximal atrial fibrillation on Eliquis History of peripheral vascular disease History of coronary artery disease History of congestive heart failure Plan: I will attempt to get a routine EEG today. I will not start the patient on antiepileptic drug unless there is epileptiform discharges or seizure on the EEG. Cannot get MRI Brain since patient has a pacemaker. Continue neuro checks Infection disease team is on board Nephrology team is on board Recommend consulting vascular surgery team. Dr. Henriquez is on board for peripheral artery disease. Please avoid any hypoglycemia event. Will defer pain management to the primary team. We'll defer the rest of the medical management to the primary team Condition: Is very guarded. The plan is discussed with the patient's nurse. Ish Deshpande M.D. Neuro-hospitalist Time with Patient: Less than 30
[2021-03-25] MEDS: allopurinoL 100 MG TAB PO SCH (10:54)
[2021-03-25] MEDS: carvediloL 12.5 MG TAB PO SCH ×2 (10:54→17:37)
[2021-03-25] MEDS: polyethylene glycoL 3350 17 GM POWD.PACK PO SCH (10:55)
[2021-03-25] MEDS: DOCUSATE 100 MG CAP PO SCH (10:55)
[2021-03-25] MEDS: SODIUM BICARBONATE TAB 650 MG TAB PO SCH ×2 (10:55→21:58)
[2021-03-25] MEDS: FERROUS SULFATE 325 MG TAB PO SCH (10:55)
[2021-03-25] MEDS: hydrALAZINE HCL 25 MG TAB PO SCH ×3 (10:55→21:58)
[2021-03-25] MEDS: ESCITALOPRAM 10 MG TAB PO SCH (10:55)
[2021-03-25] MEDS: APIXABAN 2.5 MG TABLET PO SCH ×2 (10:55→21:58)
[2021-03-25] MEDS: FUROSEMIDE 40 MG TAB PO SCH ×2 (10:55→17:08)
[2021-03-25 11:39] LABS: HCT 29.2 % (39.6-50.0); HGB 9.2 g/dL (13.0-17.0); MCH 30.4 pg (27.0-32.0); MCHC 31.5 g/dL (32.0-37.0); MCV 96.4 fL (80.0-97.0); Mean Platelet Volume 10.7 fL (9.5-12.2); Platelet Count 323 X 10*3/uL (140-440); RBC 3.03 X 10*6/uL (4.40-5.60); RDW 16.8 % (11.5-14.5); WBC 12.86 X 10*3/uL (4.50-10.00)
[2021-03-25 13:32] LABS: Basophils # (M) 0 X 10*3/uL (0.00-0.10); Eosinophils # (M) 0 X 10*3/uL (0.04-0.35); Lymphocytes # (M) 0.13 X 10*3/uL (0.90-5.00); Metamyelocytes % 3 % (0-0); Monocytes # (M) 0.51 X 10*3/uL (0.20-1.00); Myelocytes % 3 % (0-0); Neutrophils # (M) 11.45 X 10*3/uL (2.00-8.90); Neutrophils % (M) 89 %
[2021-03-25] MEDS: MORPHINE SULFATE 2 MG/ML SYRINGE IVP PRN (13:44)
[2021-03-25 13:52] LABS: African American GFR (CKD) 17.3 (60.0-200.0); Albumin 3.3 g/dL (3.8-4.9); Albumin/Globulin Ratio 1.5 (1.60-3.17); Anion Gap 19.3 mmol/L (4.00-12.00); BUN/Creat Ratio 17.61 Ratio (12.00-20.00); Blood Urea Nitrogen 63.4 mg/dL (9.0-27.0); Carbon Dioxide 18.7 mmol/L (21.6-31.8); Globulin 2.2 g/dL (1.6-3.3); Non-African American GFR(CKD) 14.9 (60.0-200.0); Potassium 5.1 mmol/L (3.5-5.5); Total Bilirubin 0.4 mg/dL (0.30-1.20); Total Protein 5.5 g/dL (6.2-8.2)
--- NOTE | 2021-03-25 14:09 | EEG ---
ELECTROENCEPHALOGRAM REPORT DATE OF SERVICE: 03/25/2021 CLINICAL HISTORY: This is an 80-year-old gentleman with altered mental status. The video EEG is obtained to evaluate for seizure epileptiform activity. Relevant medication: The patient is on Ativan p.r.n. EEG TYPE: A routine 21-channel EEG is performed with video using the 10/20 electrode placement system. DESCRIPTION: The background consist of diffuse low to moderate voltage of 2.5 to 3.5 hertz delta activity and sometimes intermixed with theta activity that is nonrhythmic. There is no physiological stage II sleep architecture seen. There is no focal slowing seen. There appears to be rare posterior to anterior lag with triphasic morphology. Interictal and ictal is none. ACTIVATION PROCEDURE: Photic stimulation and hyperventilation are not performed. CLINICAL INTERPRETATION: This is an abnormal routine EEG. The background slowing is suggestive of severe encephalopathy, likely due to toxic metabolic encephalopathy. There are no focal slowing, epileptiform discharge or seizure on the EEG. Clinical correlation is recommended. PARESH / YOKO: [id number] / WALI
[2021-03-25] MEDS: HYDROmorphone 0.5 MG/0.5 ML SYRINGE IVP PRN (16:14)
[2021-03-25] MEDS ORDERED: ACETAMINOPHEN IV (For NPO) 1,000 MG in EMPTY BAG 1 BAG IVPB PRN (17:25)
[2021-03-25 18:10] LABS: Amorphous Sediment,Urine Few /hpf; Appearance,Urine Turbid (Clear); Bilirubin,Urine Negative (Negative); Blood,Urine Small (Negative); Color,Urine Yellow; Glucose,Urine (UA) Negative (Negative); Granular Casts,Urine 2 /lpf (0); Ketones,Urine Trace (Negative); Leukocyte Esterase,Urine Trace (Negative); Mucus,Urine Rare /hpf; Nitrite,Urine Negative (Negative); Protein,Urine 1+ (Negative); RBC,Urine 2 /hpf (0-5); Specific Gravity,Urine 1.014 (1.001-1.035); Squamous Epithelial Cell,Urine <1 /hpf (0-4); Urobilinogen,Urine <2.0 mg/dL (<2.0); WBC,Urine 8 /hpf (0-5)
--- NOTE | 2021-03-25 18:13 | P.PN ---
Subjective Progress Note Date: 03/25/21 Sean Lin, is an 80-year-old male who presented to [facility] emergency room with a chief complaint of weakness and febrile illness He was evaluated in the emergency room vital examination on presentation revealed a temperature of 100.2 pulse 64 respiration 18 blood pressure 158/56 p ulse ox 100% on 2 L nasal cannula Laboratory data revealed a white blood count of 15.6 hemoglobin 12.4 platelet count 323 sodium 136 potassium 4.5 BUN 31 creatinine 2.4 to Testing in the emergency room revealed chest x-ray revealed evidence of cardiomegaly otherwise no active cardiopulmonary disease, EKG revealed ventricular paced rhythm Patient was admitted to medical floor for further evaluation and treatment Past medical history is significant for end-stage renal disease on hemodialysis, chronic systolic congestive heart failure, history of cardiac arrhythmia status post biventricular pacemaker implant, underlying history of COPD, underlying history of paroxysmal atrial fibrillation, underlying history of coronary artery disease, underlying history of peripheral arterial disease On review of systems patient is alert and oriented 3 in no apparent distress he is complaining of fever and some chills, he is also complaining of right lower extremity pain otherwise he denies any complaints there is no headache or dizziness no chest pain no shortness of breath no cough no nausea or vomiting no abdominal pain no diarrhea no blood in the stools no burning with urination no frequency or urgency and no hematuria On 03/19/2021 patient is alert and oriented 3. Patient remains on IV Maxipime for cellulitis. Patient reports he does feel significantly improved. Nephrology services following patient to receive hemodialysis today. Vascular surgery and infectious disease services also consulted. At this time patient denies chest pain or shortness breath. Patient denies nausea vomiting or diarrhea. Patient denies any urinary burning or frequency. On 03/20/2021 Patient was seen and examined on the medical floor, he is alert and oriented x 3 in no distress, he denies any complaints there is no fever or chills no headache or dizziness no chest pain no shortness of breath no palpitation no cough no nausea or vomiting no abdominal pain no diarrhea no blood in the stools no burning with urination no frequency or urgency and no hematuria, there is no weakness or numbness in any of the extremities no change in vision speech or gait. Patient was evaluated by nephrology and is continued on hemodialysis, he was also evaluated by infectious disease and is currently maintained on IV cefepime, he was evaluated by vascular surgery and no recommendation for any intervention at this time. On 03/21/2021 patient alert and oriented 3 currently eating breakfast. Blood culture positive for Morganella morganii. Per infectious disease likely source urine or abdomen. Urine is clean. CT of abdomen has been ordered per infectious disease. Patient remains on IV antibiotics for lower infection of any cellulitis. Current white blood cell 13.17. Social work PT and OT also c onsulted for discharge planning. Per nursing staff patient is very weak will likely require ECF facility upon discharge. On 03/22/2021 patient alert and oriented 3. Patient remains on IV antibiotics. labs Currently pending rate currently 97.6, heart rate 62, blood pressure 121/55 and patient oxygen saturation 96% on room air. Patient denies chest pain or shortness breath. Patient denies nausea vomiting or diarrhea. Patient denies any urinary burning or frequency. On 03/23/2021 patient is still complaining of lower extremity pain otherwise he states he is improving there is no fever or chills no headache or dizziness no chest pain no shortness of breath no cough no nausea or vomiting no chest pain no diarrhea no blood in the stools no burning with urination no frequency or urgency no hematuria On 03/24/2021 patient is confused. Per nursing staff patient will pull at lines an attempt to get out of bed. Patient currently getting hemodialysis. Potassium elevated at 65. Vascular surgery also consulted in regards to his leg. Patient remains on IV antibiotics with blood cell slightly increasing infectious disease services are following. On 03/25/2021 Patient was seen and examined on the medical floor, he is somnolent responsive in no apparent distress, he received IV Dilaudid for pain management, his son is stating that patient was holding his pelvic area with signs of pain, at this time will repeat computed tomography scan of the pelvis, I will add IV Tylenol every 6 hours when necessary and try to decrease use of narcotics. Objective - Vital Signs Vital signs: Vital Signs Temp 98.9 F 03/25/21 14:00 Pulse 61 03/25/21 14:00 Resp 18 03/25/21 14:00 BP 152/81 03/25/21 14:00 Pulse Ox 98 03/25/21 14:00 Intake & Output 03/24/21 03/25/21 03/25/21 18:59 06:59 18:59 Intake Total 300 Output Total 3000 Balance -2700 Weight 84.5 kg 84.5 kg Intake: Hemodialysis 300 Output: Hemodialysis 3000 Other: Voiding Method Diaper Diaper Diaper # Voids 1 2 1 # Bowel Movements 1 - Exam In general patient is alert and oriented x 3 in no distress HEENT head normocephalic and atraumatic Neck is supple no JVD no goiter no lymphadenopathy no carotid bruit Chest examination is clear to auscultation no crackles no wheezing Cardiac exam reveals regular heart sounds S1 and S2 no gallops no murmurs Abdomen is soft nontender no organomegaly with normal bowel sounds Extremity exam bilateral lower extremity erythema in the pretibial area right worse than left there are multiple ulcerations on the toes Neurological examination reveals no gross focal deficits - Labs CBC & Chem 7: 03/25/21 06:55 03/25/21 06:55 Labs: Abnormal Lab Results - Last 24 Hours (Table) 03/25/21 03/25/21 Range/Units 06:55 06:55 WBC 12.86 H (4.50-10.00) X 10*3/uL RBC 3.03 L (4.40-5.60) X 10*6/uL Hgb 9.2 L (13.0-17.0) g/dL Hct 29.2 L (39.6-50.0) % MCHC 31.5 L (32.0-37.0) g/dL RDW 16.8 H (11.5-14.5) % Metamyelocytes % 3 H (0-0) % Myelocytes % 3 H (0-0) % Neutrophils # (Manual) 11.45 H (2.00-8.90) X 10*3/uL Lymphocytes # (Manual) 0.13 L (0.90-5.00) X 10*3/uL Eosinophils # (Manual) 0 L (0.04-0.35) X 10*3/uL Carbon Dioxide 18.7 L (21.6-31.8) mmol/L Anion Gap 19.30 H (4.00-12.00) mmol/L BUN 63.4 H (9.0-27.0) mg/dL Creatinine 3.6 H (0.6-1.5) mg/dL Est GFR (CKD-EPI)AfAm 17.3 L (60.0-200.0) Est GFR (CKD-EPI)NonAf 14.9 L (60.0-200.0) Glucose 58 L (70-110) mg/dL AST 45 H (14-35) U/L ALT 55 H (10-49) U/L Total Protein 5.5 L (6.2-8.2) g/dL Albumin 3.3 L (3.8-4.9) g/dL Albumin/Globulin Ratio 1.50 L (1.60-3.17) g/dL Microbiology - Last 24 Hours (Table) 03/19/21 12:50 Blood Culture - Final Blood No Growth after 144 hours 03/19/21 05:20 Blood Culture - Final Blood No Growth after 144 hours Assessment and Plan Plan: Febrile illness with leukocytosis, likely related to lower extremity cellulitis, and possibly infected catheter patient has positive blood culture for gram- negative bacilli and currently he is maintained on IV cefepime, infectious disease following Bacteremia with Morganella morganii. Infectious disease services are following. CT of abdomen has been ordered to investigate source of infection Underlying history of coronary artery disease and congestive heart failure stable cardiac-sunshine at this time will consult cardiology for follow-up End-stage renal disease maintained on hemodialysis consultation for nephrology was initiated Underlying history of chronic systolic congestive heart failure Underlying history of cardiac arrhythmia with third degree AV block status post biventricular pacemaker implant in September 2019 Underlying history of COPD Underlying history of paroxysmal atrial fibrillation Underlying history of peripheral arterial disease with moderate bilateral fem- pop disease At this time patient is admitted to medical floor Nephrology consultation requested for continuation of hemodialysis Infectious disease vascular surgery and cardiology consultation requested Positive bacteremia, Prognosis is guarded due to advanced medical problems with multisystem i nvolvement
[2021-03-25 18:16] LABS: Glucose,Whole Blood 64 mg/dL (75-99)
[2021-03-25] MEDS ORDERED: DEXTROSE 50% SYRINGE 50 ML IVP ONE (18:19)
[2021-03-25 18:53] LABS: Glucose,Whole Blood 117 mg/dL (75-99)
[2021-03-25] MEDS: MULTIVITAMINS, THERA 1 EACH TAB PO SCH (21:58)
[2021-03-25] MEDS: LEVOTHYROXINE 88 MCG TAB PO SCH (21:58)
--- NOTE | 2021-03-25 23:41 | PN ---
PROGRESS NOTE DATE OF SERVICE: 03/25/2021 REASON FOR FOLLOWUP: Morganella bacteremia, right lower extremity wound and concern for ischemia. INTERVAL HISTORY: The patient remains afebrile. The patient remains pleasantly confused and is unable to provide any history. Did not answer any questions. No vomiting, diarrhea or any changes reported by the nursing staff. PHYSICAL EXAMINATION: Blood pressure 150/66, pulse of 72, temperature 97.9. He is 97% on 2 L nasal cannula. General description is an elderly male lying in bed in no distress. Respiratory system: Unlabored breathing, decreased breath sounds at the bases. No wheeze. Heart S1, S2. Regular rate and rhythm. Abdomen soft, no tenderness. Right leg is currently wrapped. No obvious drainage on the dressing. LABS: Hemoglobin is 9.2, white count of 13.6. Repeat culture has been negative so far. DIAGNOSTIC IMPRESSION AND PLAN: 1. Patient with Morganella bacteremia, initially concerning for a PermCath, which has been ruled out with a negative blood culture repeat. Patient is covered with cefepime. Did have extensive workup and there is a possibility of pneumonia. Clinically not behaving as such, but continue with cefepime while inpatient. 2. Patient with right lower extremity wound, concern for underlying ischemia. Will discuss further with Vascular Surgery. Continue with supportive care. MMODL / IJN: [id number] /
[2021-03-26] MEDS: CEFEPIME 1 GM in SODIUM CHLORIDE 0.9% 50 ML IVPB SCH ×2 (00:20→12:00)
--- NOTE | 2021-03-26 06:32 | CT ---
EXAMINATION TYPE: CT pelvis wo con DATE OF EXAM: 03/25/2021 COMPARISON: None HISTORY: Pelvic pain CT DLP: 635.6 mGycm Automated exposure control for dose reduction was used. Images obtained from the iliac crests to the subtrochanteric femurs without contrast. There is some o ral contrast in the large bowel noted. There is subcutaneous edema around the abdomen and pelvis. The pelvic ring is intact. Proximal femurs and hip joints are intact. There is no evidence of hip fracture. There is mild narrowing of the hip joint spaces. There are spondylotic changes in the lumbar spine with disc space narrowing and spurrin g and vacuum disc from L2 to S1. Abdominal aorta is atheromatous. There is atherosclerotic vascular c alcification. There is no free fluid in the pelvis. There are multiple sigmoid diverticula. I see no sign of diverticulitis. There is renal cortical thinning. There is renal vascular calcification. There is no evidence of a bowel obstruction. There is no mesenteric edema. IMPRESSION: Renal atrophy. There is partial visualization of pleural fluid at the lung bases. Subcutaneous edema. This is consistent with renal failure. Atherosclerotic vascular disease. Colonic diverticulosis. No fracture seen.
--- NOTE | 2021-03-26 07:36 | XR ---
EXAMINATION TYPE: XR chest 1V portable DATE OF EXAM: 03/26/2021 COMPARISON: 03/18/2021 HISTORY: Bibasilar infiltrates on CT TECHNIQUE: Single frontal view of the chest is obtained. FINDINGS: Pacer leads and dialysis catheter are unchanged. There is patchy airspace disease in the bilateral lower lung zones. Enlargement of the cardiac silhouette appears similar to the prior exam. IMPRESSION: Bilateral lower lung zone patchy airspace disease.
[2021-03-26] MEDS: hydrALAZINE HCL 25 MG TAB PO SCH ×3 (08:17→15:56)
[2021-03-26] MEDS: APIXABAN 2.5 MG TABLET PO SCH ×2 (08:17→08:30)
[2021-03-26] MEDS: ESCITALOPRAM 10 MG TAB PO SCH (08:17)
[2021-03-26] MEDS: carvediloL 12.5 MG TAB PO SCH ×3 (08:17→18:27)
[2021-03-26] MEDS: FUROSEMIDE 40 MG TAB PO SCH ×2 (08:29→15:56)
[2021-03-26] MEDS: SODIUM BICARBONATE TAB 650 MG TAB PO SCH (08:29)
[2021-03-26] MEDS: allopurinoL 100 MG TAB PO SCH (08:29)
[2021-03-26] MEDS: FERROUS SULFATE 325 MG TAB PO SCH (08:29)
[2021-03-26] MEDS: polyethylene glycoL 3350 17 GM POWD.PACK PO SCH (08:29)
[2021-03-26] MEDS: DOCUSATE 100 MG CAP PO SCH (08:29)
[2021-03-26 08:35] LABS: Glucose,Whole Blood 68 mg/dL (75-99)
[2021-03-26 09:30] LABS: Anisocytosis Slight; Basophils % (A) 0 %; Eosinophils # (A) 0.1 k/uL (0-0.7); Eosinophils % (A) 1 %; HCT 30.5 % (39.0-53.0); HGB 9.7 gm/dL (13.0-17.5); Hypochromasia Slight; Lymphocytes # (A) 0.4 k/uL (1.0-4.8); Lymphocytes % (A) 3 %; MCHC 31.7 g/dL (31.0-37.0); Macrocytosis Slight; Mean Platelet Volume 8.6; Monocytes # (A) 0.9 k/uL (0-1.0); Monocytes % (A) 6 %; Neutrophils # (A) 12.1 k/uL (1.3-7.7); Neutrophils % (A) 88 %; Platelet Count 351 k/uL (150-450); RBC 3.02 m/uL (4.30-5.90); RDW 16.2 % (11.5-15.5); WBC 13.8 k/uL (3.8-10.6)
[2021-03-26 09:35] LABS: Glucose,Whole Blood 74 mg/dL (75-99)
[2021-03-26 09:49] LABS: ALT 51 U/L (4-49); AST 42 U/L (17-59); African American GFR (CKD) 15 (>60 ml/min/1.73 sqM); Albumin 2.9 g/dL (3.5-5.0); Albumin/Globulin Ratio 1.1; Alkaline Phosphatase 89 U/L (38-126); Anion Gap 15 mmol/L; Blood Urea Nitrogen 84 mg/dL (9-20); Carbon Dioxide 17 mmol/L (22-30); Chloride 106 mmol/L (98-107); Globulin 2.6 g/dL; Glucose 74 mg/dL (74-99); Magnesium 2.2 mg/dL (1.6-2.3); Non-African American GFR(CKD) 13 (>60 ml/min/1.73 sqM); Sodium 138 mmol/L (137-145); Total Bilirubin 0.6 mg/dL (0.2-1.3); Total Protein 5.5 g/dL (6.3-8.2)
--- NOTE | 2021-03-26 10:27 | P.PN ---
Subjective Patient is seen in follow-up for end-stage renal disease. He is maintained on hemodialysis on Monday schedule. Blood culture positive for Morganella. On IV antibiotics. Patient remains confused. Morphine discontinued. Being followed by neurology. Scheduled for dialysis today. Vital signs are stable. General: Patient is confused and agitated. HEENT: Head exam is unremarkable. LUNGS: Breath sounds decreased. HEART: Rate and Rhythm are regular. ABDOMEN: Soft, no distention. EXTREMITITES: Trace edema. No drainage. Objective - Vital Signs Vital signs: Vital Signs Temp 97.8 F 03/26/21 08:00 Pulse 68 03/26/21 08:00 Resp 16 03/26/21 08:00 BP 160/56 03/26/21 08:00 Pulse Ox 95 03/26/21 08:00 Intake & Output 03/25/21 03/26/21 03/26/21 18:59 06:59 18:59 Output Total 160 Balance -160 Weight 84.5 kg 85.5 kg Output: Urine 160 Straight 80 Other: Voiding Method Diaper Diaper Diaper # Voids 1 2 - Labs CBC & Chem 7: 03/26/21 08:06 03/26/21 08:06 Labs: Abnormal Lab Results - Last 24 Hours (Table) 03/25/21 03/25/21 03/25/21 Range/Units 06:55 06:55 17:43 WBC 12.86 H (4.50-10.00) X 10*3/uL RBC 3.03 L (4.40-5.60) X 10*6/uL Hgb 9.2 L (13.0-17.0) g/dL Hct 29.2 L (39.6-50.0) % MCV (80.0-100.0) fL MCHC 31.5 L (32.0-37.0) g/dL RDW 16.8 H (11.5-14.5) % Metamyelocytes % 3 H (0-0) % Myelocytes % 3 H (0-0) % Neutrophils # (1.3-7.7) k/uL Neutrophils # (Manual) 11.45 H (2.00-8.90) X 10*3/uL Lymphocytes # (1.0-4.8) k/uL Lymphocytes # (Manual) 0.13 L (0.90-5.00) X 10*3/uL Eosinophils # (Manual) 0 L (0.04-0.35) X 10*3/uL Carbon Dioxide 18.7 L (21.6-31.8) mmol/L Anion Gap 19.30 H (4.00-12.00) mmol/L BUN 63.4 H (9.0-27.0) mg/dL Creatinine 3.6 H (0.6-1.5) mg/dL Est GFR (CKD-EPI)AfAm 17.3 L (60.0-200.0) Est GFR (CKD-EPI)NonAf 14.9 L (60.0-200.0) Glucose 58 L (70-110) mg/dL POC Glucose (mg/dL) (75-99) mg/dL AST 45 H (14-35) U/L ALT 55 H (10-49) U/L Total Protein 5.5 L (6.2-8.2) g/dL Albumin 3.3 L (3.8-4.9) g/dL Albumin/Globulin Ratio 1.50 L (1.60-3.17) g/dL Urine Protein 1+ H (Negative) Urine Ketones Trace H (Negative) Urine Blood Small H (Negative) Ur Leukocyte Esterase Trace H (Negative) Urine WBC 8 H (0-5) /hpf Amorphous Sediment Few H (None) /hpf Urine Mucus Rare H (None) /hpf 03/25/21 03/25/21 03/26/21 Range/Units 18:14 18:51 08:06 WBC (4.50-10.00) X 10*3/uL RBC (4.40-5.60) X 10*6/uL Hgb (13.0-17.0) g/dL Hct (39.6-50.0) % MCV (80.0-100.0) fL MCHC (32.0-37.0) g/dL RDW (11.5-14.5) % Metamyelocytes % (0-0) % Myelocytes % (0-0) % Neutrophils # (1.3-7.7) k/uL Neutrophils # (Manual) (2.00-8.90) X 10*3/uL Lymphocytes # (1.0-4.8) k/uL Lymphocytes # (Manual) (0.90-5.00) X 10*3/uL Eosinophils # (Manual) (0.04-0.35) X 10*3/uL Carbon Dioxide 17 L (21.6-31.8) mmol/L Anion Gap (4.00-12.00) mmol/L BUN 84 H (9.0-27.0) mg/dL Creatinine 4.16 H (0.6-1.5) mg/dL Est GFR (CKD-EPI)AfAm (60.0-200.0) Est GFR (CKD-EPI)NonAf (60.0-200.0) Glucose (70-110) mg/dL POC Glucose (mg/dL) 64 L 117 H (75-99) mg/dL AST (14-35) U/L ALT 51 H (10-49) U/L Total Protein 5.5 L (6.2-8.2) g/dL Albumin 2.9 L (3.8-4.9) g/dL Albumin/Globulin Ratio (1.60-3.17) g/dL Urine Protein (Negative) Urine Ketones (Negative) Urine Blood (Negative) Ur Leukocyte Esterase (Negative) Urine WBC (0-5) /hpf Amorphous Sediment (None) /hpf Urine Mucus (None) /hpf 03/26/21 03/26/21 03/26/21 Range/Units 08:06 08:32 09:33 WBC 13.8 H (4.50-10.00) X 10*3/uL RBC 3.02 L (4.40-5.60) X 10*6/uL Hgb 9.7 L (13.0-17.0) g/dL Hct 30.5 L (39.6-50.0) % MCV 101.0 H (80.0-100.0) fL MCHC (32.0-37.0) g/dL RDW 16.2 H (11.5-14.5) % Metamyelocytes % (0-0) % Myelocytes % (0-0) % Neutrophils # 12.1 H (1.3-7.7) k/uL Neutrophils # (Manual) (2.00-8.90) X 10*3/uL Lymphocytes # 0.4 L (1.0-4.8) k/uL Lymphocytes # (Manual) (0.90-5.00) X 10*3/uL Eosinophils # (Manual) (0.04-0.35) X 10*3/uL Carbon Dioxide (21.6-31.8) mmol/L Anion Gap (4.00-12.00) mmol/L BUN (9.0-27.0) mg/dL Creatinine (0.6-1.5) mg/dL Est GFR (CKD-EPI)AfAm (60.0-200.0) Est GFR (CKD-EPI)NonAf (60.0-200.0) Glucose (70-110) mg/dL POC Glucose (mg/dL) 68 L 74 L (75-99) mg/dL AST (14-35) U/L ALT (10-49) U/L Total Protein (6.2-8.2) g/dL Albumin (3.8-4.9) g/dL Albumin/Globulin Ratio (1.60-3.17) g/dL Urine Protein (Negative) Urine Ketones (Negative) Urine Blood (Negative) Ur Leukocyte Esterase (Negative) Urine WBC (0-5) /hpf Amorphous Sediment (None) /hpf Urine Mucus (None) /hpf Microbiology - Last 24 Hours (Table) 03/25/21 17:43 Urine Culture - Preliminary Urine,Catheterized 03/19/21 12:50 Blood Culture - Final Blood No Growth after 144 hours 03/19/21 05:20 Blood Culture - Final Blood No Growth after 144 hours Assessment and Plan Plan: Assessment: 1. End-stage renal disease maintained on hemodialysis on Monday schedule. 2. Morganella bacteremia on IV antibiotics. Infectious disease following. Blood cultures from the permacath negative. No acute changes noted on CT. 3. Hypertension with chronic kidney disease. Stable. 4. Volume overload. Improved postdialysis. 5. Metabolic acidosis secondary to chronic kidney disease. Expect improvement postdialysis. On oral bicarb as well. 6. Anemia of chronic kidney disease. 7. Altered mental status secondary to metabolic encephalopathy. Neurology following. Morphine discontinued. Plan: Hemodialysis today. Stopped losartan March 24. Follow-up cultures. Add Aranesp.
--- NOTE | 2021-03-26 10:31 | P.PN ---
Subjective Progress Note Date: 03/26/21 Sean Lin, is an 80-year-old male who presented to [facility] emergency room with a chief complaint of weakness and febrile illness He was evaluated in the emergency room vital examination on presentation revealed a temperature of 100.2 pulse 64 respiration 18 blood pressure 158/56 p ulse ox 100% on 2 L nasal cannula Laboratory data revealed a white blood count of 15.6 hemoglobin 12.4 platelet count 323 sodium 136 potassium 4.5 BUN 31 creatinine 2.4 to Testing in the emergency room revealed chest x-ray revealed evidence of cardiomegaly otherwise no active cardiopulmonary disease, EKG revealed ventricular paced rhythm Patient was admitted to medical floor for further evaluation and treatment Past medical history is significant for end-stage renal disease on hemodialysis, chronic systolic congestive heart failure, history of cardiac arrhythmia status post biventricular pacemaker implant, underlying history of COPD, underlying history of paroxysmal atrial fibrillation, underlying history of coronary artery disease, underlying history of peripheral arterial disease On review of systems patient is alert and oriented 3 in no apparent distress he is complaining of fever and some chills, he is also complaining of right lower extremity pain otherwise he denies any complaints there is no headache or dizziness no chest pain no shortness of breath no cough no nausea or vomiting no abdominal pain no diarrhea no blood in the stools no burning with urination no frequency or urgency and no hematuria On 03/19/2021 patient is alert and oriented 3. Patient remains on IV Maxipime for cellulitis. Patient reports he does feel significantly improved. Nephrology services following patient to receive hemodialysis today. Vascular surgery and infectious disease services also consulted. At this time patient denies chest pain or shortness breath. Patient denies nausea vomiting or diarrhea. Patient denies any urinary burning or frequency. On 03/20/2021 Patient was seen and examined on the medical floor, he is alert and oriented x 3 in no distress, he denies any complaints there is no fever or chills no headache or dizziness no chest pain no shortness of breath no palpitation no cough no nausea or vomiting no abdominal pain no diarrhea no blood in the stools no burning with urination no frequency or urgency and no hematuria, there is no weakness or numbness in any of the extremities no change in vision speech or gait. Patient was evaluated by nephrology and is continued on hemodialysis, he was also evaluated by infectious disease and is currently maintained on IV cefepime, he was evaluated by vascular surgery and no recommendation for any intervention at this time. On 03/21/2021 patient alert and oriented 3 currently eating breakfast. Blood culture positive for Morganella morganii. Per infectious disease likely source urine or abdomen. Urine is clean. CT of abdomen has been ordered per infectious disease. Patient remains on IV antibiotics for lower infection of any cellulitis. Current white blood cell 13.17. Social work PT and OT also c onsulted for discharge planning. Per nursing staff patient is very weak will likely require ECF facility upon discharge. On 03/22/2021 patient alert and oriented 3. Patient remains on IV antibiotics. labs Currently pending rate currently 97.6, heart rate 62, blood pressure 121/55 and patient oxygen saturation 96% on room air. Patient denies chest pain or shortness breath. Patient denies nausea vomiting or diarrhea. Patient denies any urinary burning or frequency. On 03/23/2021 patient is still complaining of lower extremity pain otherwise he states he is improving there is no fever or chills no headache or dizziness no chest pain no shortness of breath no cough no nausea or vomiting no chest pain no diarrhea no blood in the stools no burning with urination no frequency or urgency no hematuria On 03/24/2021 patient is confused. Per nursing staff patient will pull at lines an attempt to get out of bed. Patient currently getting hemodialysis. Potassium elevated at 65. Vascular surgery also consulted in regards to his leg. Patient remains on IV antibiotics with blood cell slightly increasing infectious disease services are following. On 03/25/2021 Patient was seen and examined on the medical floor, he is somnolent responsive in no apparent distress, he received IV Dilaudid for pain management, his son is stating that patient was holding his pelvic area with signs of pain, at this time will repeat computed tomography scan of the pelvis, I will add IV Tylenol every 6 hours when necessary and try to decrease use of narcotics. On 03/26/2021 patient remains confused. Nephrology and neurology services are following. Patient to receive hemodialysis today. CT showing no acute changes. Objective - Vital Signs Vital signs: Vital Signs Temp 97.8 F 03/26/21 08:00 Pulse 68 03/26/21 08:00 Resp 16 03/26/21 08:00 BP 160/56 03/26/21 08:00 Pulse Ox 95 03/26/21 08:00 Intake & Output 03/25/21 03/26/21 03/26/21 18:59 06:59 18:59 Output Total 160 Balance -160 Weight 84.5 kg 85.5 kg Output: Urine 160 Straight 80 Other: Voiding Method Diaper Diaper Diaper # Voids 1 2 - Exam In general patient is alert and oriented x 3 in no distress HEENT head normocephalic and atraumatic Neck is supple no JVD no goiter no lymphadenopathy no carotid bruit Chest examination is clear to auscultation no crackles no wheezing Cardiac exam reveals regular heart sounds S1 and S2 no gallops no murmurs Abdomen is soft nontender no organomegaly with normal bowel sounds Extremity exam bilateral lower extremity erythema in the pretibial area right worse than left there are multiple ulcerations on the toes Neurological examination reveals no gross focal deficits - Labs CBC & Chem 7: 03/26/21 08:06 03/26/21 08:06 Labs: Abnormal Lab Results - Last 24 Hours (Table) 03/25/21 03/25/21 03/25/21 Range/Units 06:55 06:55 17:43 WBC 12.86 H (4.50-10.00) X 10*3/uL RBC 3.03 L (4.40-5.60) X 10*6/uL Hgb 9.2 L (13.0-17.0) g/dL Hct 29.2 L (39.6-50.0) % MCV (80.0-100.0) fL MCHC 31.5 L (32.0-37.0) g/dL RDW 16.8 H (11.5-14.5) % Metamyelocytes % 3 H (0-0) % Myelocytes % 3 H (0-0) % Neutrophils # (1.3-7.7) k/uL Neutrophils # (Manual) 11.45 H (2.00-8.90) X 10*3/uL Lymphocytes # (1.0-4.8) k/uL Lymphocytes # (Manual) 0.13 L (0.90-5.00) X 10*3/uL Eosinophils # (Manual) 0 L (0.04-0.35) X 10*3/uL Carbon Dioxide 18.7 L (21.6-31.8) mmol/L Anion Gap 19.30 H (4.00-12.00) mmol/L BUN 63.4 H (9.0-27.0) mg/dL Creatinine 3.6 H (0.6-1.5) mg/dL Est GFR (CKD-EPI)AfAm 17.3 L (60.0-200.0) Est GFR (CKD-EPI)NonAf 14.9 L (60.0-200.0) Glucose 58 L (70-110) mg/dL POC Glucose (mg/dL) (75-99) mg/dL AST 45 H (14-35) U/L ALT 55 H (10-49) U/L Total Protein 5.5 L (6.2-8.2) g/dL Albumin 3.3 L (3.8-4.9) g/dL Albumin/Globulin Ratio 1.50 L (1.60-3.17) g/dL Urine Protein 1+ H (Negative) Urine Ketones Trace H (Negative) Urine Blood Small H (Negative) Ur Leukocyte Esterase Trace H (Negative) Urine WBC 8 H (0-5) /hpf Amorphous Sediment Few H (None) /hpf Urine Mucus Rare H (None) /hpf 03/25/21 03/25/21 03/26/21 Range/Units 18:14 18:51 08:06 WBC (4.50-10.00) X 10*3/uL RBC (4.40-5.60) X 10*6/uL Hgb (13.0-17.0) g/dL Hct (39.6-50.0) % MCV (80.0-100.0) fL MCHC (32.0-37.0) g/dL RDW (11.5-14.5) % Metamyelocytes % (0-0) % Myelocytes % (0-0) % Neutrophils # (1.3-7.7) k/uL Neutrophils # (Manual) (2.00-8.90) X 10*3/uL Lymphocytes # (1.0-4.8) k/uL Lymphocytes # (Manual) (0.90-5.00) X 10*3/uL Eosinophils # (Manual) (0.04-0.35) X 10*3/uL Carbon Dioxide 17 L (21.6-31.8) mmol/L Anion Gap (4.00-12.00) mmol/L BUN 84 H (9.0-27.0) mg/dL Creatinine 4.16 H (0.6-1.5) mg/dL Est GFR (CKD-EPI)AfAm (60.0-200.0) Est GFR (CKD-EPI)NonAf (60.0-200.0) Glucose (70-110) mg/dL POC Glucose (mg/dL) 64 L 117 H (75-99) mg/dL AST (14-35) U/L ALT 51 H (10-49) U/L Total Protein 5.5 L (6.2-8.2) g/dL Albumin 2.9 L (3.8-4.9) g/dL Albumin/Globulin Ratio (1.60-3.17) g/dL Urine Protein (Negative) Urine Ketones (Negative) Urine Blood (Negative) Ur Leukocyte Esterase (Negative) Urine WBC (0-5) /hpf Amorphous Sediment (None) /hpf Urine Mucus (None) /hpf 03/26/21 03/26/21 03/26/21 Range/Units 08:06 08:32 09:33 WBC 13.8 H (4.50-10.00) X 10*3/uL RBC 3.02 L (4.40-5.60) X 10*6/uL Hgb 9.7 L (13.0-17.0) g/dL Hct 30.5 L (39.6-50.0) % MCV 101.0 H (80.0-100.0) fL MCHC (32.0-37.0) g/dL RDW 16.2 H (11.5-14.5) % Metamyelocytes % (0-0) % Myelocytes % (0-0) % Neutrophils # 12.1 H (1.3-7.7) k/uL Neutrophils # (Manual) (2.00-8.90) X 10*3/uL Lymphocytes # 0.4 L (1.0-4.8) k/uL Lymphocytes # (Manual) (0.90-5.00) X 10*3/uL Eosinophils # (Manual) (0.04-0.35) X 10*3/uL Carbon Dioxide (21.6-31.8) mmol/L Anion Gap (4.00-12.00) mmol/L BUN (9.0-27.0) mg/dL Creatinine (0.6-1.5) mg/dL Est GFR (CKD-EPI)AfAm (60.0-200.0) Est GFR (CKD-EPI)NonAf (60.0-200.0) Glucose (70-110) mg/dL POC Glucose (mg/dL) 68 L 74 L (75-99) mg/dL AST (14-35) U/L ALT (10-49) U/L Total Protein (6.2-8.2) g/dL Albumin (3.8-4.9) g/dL Albumin/Globulin Ratio (1.60-3.17) g/dL Urine Protein (Negative) Urine Ketones (Negative) Urine Blood (Negative) Ur Leukocyte Esterase (Negative) Urine WBC (0-5) /hpf Amorphous Sediment (None) /hpf Urine Mucus (None) /hpf Microbiology - Last 24 Hours (Table) 03/25/21 17:43 Urine Culture - Preliminary Urine,Catheterized 03/19/21 12:50 Blood Culture - Final Blood No Growth after 144 hours 03/19/21 05:20 Blood Culture - Final Blood No Growth after 144 hours Assessment and Plan Plan: Febrile illness with leukocytosis, likely related to lower extremity cellulitis, and possibly infected catheter patient has positive blood culture for gram-negative bacilli and currently he is maintained on IV cefepime, infectious disease following Bacteremia with Morganella morganii. Infectious disease services are following. 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 At this time patient is admitted to medical floor Nephrology consultation requested for continuation of hemodialysis Infectious disease vascular surgery and cardiology consultation requested Positive bacteremia, Prognosis is guarded due to advanced medical problems with multisystem involvement
[2021-03-26 10:44] LABS: Glucose,Whole Blood 77 mg/dL (75-99)
[2021-03-26] MEDS ORDERED: ALTEPLASE 2 MG VIAL (CATHFLO) IV STA ×2 (11:43→11:45)
--- NOTE | 2021-03-26 11:57 | P.PN ---
Subjective Progress Note Date: 03/26/21 Per the patient nurse he is in pain and confused. Objective - Vital Signs Vital signs: Vital Signs Temp 97.8 F 03/26/21 08:00 Pulse 68 03/26/21 08:00 Resp 16 03/26/21 08:00 BP 160/56 03/26/21 08:00 Pulse Ox 95 03/26/21 08:00 Intake & Output 03/25/21 03/26/21 03/26/21 18:59 06:59 18:59 Output Total 160 Balance -160 Weight 84.5 kg 85.5 kg Output: Urine 160 Straight 80 Other: Voiding Method Diaper Diaper Diaper # Voids 1 2 - Exam GENERAL: The patient is lying in bed and is in moderate acute distress. INTEGUMENTARY: He has erythema of right lower extremity from calf down to his toes with bluish discoloration of most of toes of right foot (1st to 4th toes). It is cold to touch over the right foot. NEUROLOGICAL: Limited because of his condition. Higher mental function: The patient is awake but not verbally responsive. He followed on step command (thumbs up on the right hand. Otherwise, he is not fol lowing commands or verbalizing. He screams in pain when touching the right lower extremity. Cranial nerves: The pupils are round, equal and reactive to light. Visual snider could not be assessed. Extraocular movement could not be assessed. No facial weakness. Otherwise rest of cranial nerves could not be assessed. Motor: Gait is deferred. The strength is hard to assess because of his co operation. Has at time tremors of bilateral upper but when slept that resolved. Sensation: Could not asses. Reflexes (right/left): Could not asses. Plantars Is mute bilaterally. WORK-UP: CT of the head: It is reported as findings are similar to prior exam. Age- related changes of atrophy and chronic small vessel ischemic noted. Routine EEG on 03/25/2021: Is abnormal. The back of slowing suggestive of severe encephalopathy likely due to toxic metabolic encephalopathy. There are n o focal slowing, epileptiform discharges or seizure on the EEG. TSH: 2.780 Calcium is 9.5 Ammonia level <9 Esqueda Virus is not detected. - Labs CBC & Chem 7: 03/26/21 08:06 11/12/21 08:06 Labs: Abnormal Lab Results - Last 24 Hours (Table) 03/25/21 03/25/21 03/25/21 Range/Units 06:55 06:55 17:43 WBC (3.8-10.6) k/uL RBC (4.30-5.90) m/uL Hgb (13.0-17.5) gm/dL Hct (39.0-53.0) % MCV (80.0-100.0) fL RDW (11.5-15.5) % Metamyelocytes % 3 H (0-0) % Myelocytes % 3 H (0-0) % Neutrophils # (1.3-7.7) k/uL Neutrophils # (Manual) 11.45 H (2.00-8.90) X 10*3/uL Lymphocytes # (1.0-4.8) k/uL Lymphocytes # (Manual) 0.13 L (0.90-5.00) X 10*3/uL Eosinophils # (Manual) 0 L (0.04-0.35) X 10*3/uL Carbon Dioxide 18.7 L (21.6-31.8) mmol/L Anion Gap 19.30 H (4.00-12.00) mmol/L BUN 63.4 H (9.0-27.0) mg/dL Creatinine 3.6 H (0.6-1.5) mg/dL Est GFR (CKD-EPI)AfAm 17.3 L (60.0-200.0) Est GFR (CKD-EPI)NonAf 14.9 L (60.0-200.0) Glucose 58 L (70-110) mg/dL POC Glucose (mg/dL) (75-99) mg/dL AST 45 H (14-35) U/L ALT 55 H (10-49) U/L Total Protein 5.5 L (6.2-8.2) g/dL Albumin 3.3 L (3.8-4.9) g/dL Albumin/Globulin Ratio 1.50 L (1.60-3.17) g/dL Urine Protein 1+ H (Negative) Urine Ketones Trace H (Negative) Urine Blood Small H (Negative) Ur Leukocyte Esterase Trace H (Negative) Urine WBC 8 H (0-5) /hpf Amorphous Sediment Few H (None) /hpf Urine Mucus Rare H (None) /hpf 03/25/21 03/25/21 03/26/21 Range/Units 18:14 18:51 08:06 WBC (3.8-10.6) k/uL RBC (4.30-5.90) m/uL Hgb (13.0-17.5) gm/dL Hct (39.0-53.0) % MCV (80.0-100.0) fL RDW (11.5-15.5) % Metamyelocytes % (0-0) % Myelocytes % (0-0) % Neutrophils # (1.3-7.7) k/uL Neutrophils # (Manual) (2.00-8.90) X 10*3/uL Lymphocytes # (1.0-4.8) k/uL Lymphocytes # (Manual) (0.90-5.00) X 10*3/uL Eosinophils # (Manual) (0.04-0.35) X 10*3/uL Carbon Dioxide 17 L (21.6-31.8) mmol/L Anion Gap (4.00-12.00) mmol/L BUN 84 H (9.0-27.0) mg/dL Creatinine 4.16 H (0.6-1.5) mg/dL Est GFR (CKD-EPI)AfAm (60.0-200.0) Est GFR (CKD-EPI)NonAf (60.0-200.0) Glucose (70-110) mg/dL POC Glucose (mg/dL) 64 L 117 H (75-99) mg/dL AST (14-35) U/L ALT 51 H (10-49) U/L Total Protein 5.5 L (6.2-8.2) g/dL Albumin 2.9 L (3.8-4.9) g/dL Albumin/Globulin Ratio (1.60-3.17) g/dL Urine Protein (Negative) Urine Ketones (Negative) Urine Blood (Negative) Ur Leukocyte Esterase (Negative) Urine WBC (0-5) /hpf Amorphous Sediment (None) /hpf Urine Mucus (None) /hpf 03/26/21 03/26/21 03/26/21 Range/Units 08:06 08:32 09:33 WBC 13.8 H (3.8-10.6) k/uL RBC 3.02 L (4.30-5.90) m/uL Hgb 9.7 L (13.0-17.5) gm/dL Hct 30.5 L (39.0-53.0) % MCV 101.0 H (80.0-100.0) fL RDW 16.2 H (11.5-15.5) % Metamyelocytes % (0-0) % Myelocytes % (0-0) % Neutrophils # 12.1 H (1.3-7.7) k/uL Neutrophils # (Manual) (2.00-8.90) X 10*3/uL Lymphocytes # 0.4 L (1.0-4.8) k/uL Lymphocytes # (Manual) (0.90-5.00) X 10*3/uL Eosinophils # (Manual) (0.04-0.35) X 10*3/uL Carbon Dioxide (21.6-31.8) mmol/L Anion Gap (4.00-12.00) mmol/L BUN (9.0-27.0) mg/dL Creatinine (0.6-1.5) mg/dL Est GFR (CKD-EPI)AfAm (60.0-200.0) Est GFR (CKD-EPI)NonAf (60.0-200.0) Glucose (70-110) mg/dL POC Glucose (mg/dL) 68 L 74 L (75-99) mg/dL AST (14-35) U/L ALT (10-49) U/L Total Protein (6.2-8.2) g/dL Albumin (3.8-4.9) g/dL Albumin/Globulin Ratio (1.60-3.17) g/dL Urine Protein (Negative) Urine Ketones (Negative) Urine Blood (Negative) Ur Leukocyte Esterase (Negative) Urine WBC (0-5) /hpf Amorphous Sediment (None) /hpf Urine Mucus (None) /hpf Microbiology - Last 24 Hours (Table) 03/25/21 17:43 Urine Culture - Preliminary Urine,Catheterized 03/19/21 12:50 Blood Culture - Final Blood No Growth after 144 hours 03/19/21 05:20 Blood Culture - Final Blood No Growth after 144 hours Assessment and Plan Assessment: Altered mental status due to multiple factorial: Metabolic encephalopathy (ESRD, hypoglycemia) and septic encephalopathy from underlying bactermia Morganella Bactremia Hypoglycemia (as low as 64) End-stage renal disease and currently on dialysis (history of chronic kidney disease and it appears during this admission he started getting dialysis) Possible right lower extremity ischemia Metabolic acidosis secondary due to chronic kidney disease Mild hyponatremia Mild elevated liver function [id number]. Story of third degree AV block status post pacemaker History of proximal atrial fibrillation on Eliquis History of peripheral vascular disease History of coronary artery disease History of congestive heart failure Plan: Ordered repeat CT of the head since cannot get MRI the brain since the patient has a pacemaker to rule out any acute or subacute stroke. Ordered vitamin B12 and folate level. Continue neuro checks Infection disease team is on board Nephrology team is on board Consider vascular surgery team consult. Dr. Henriquez is on board for peripheral artery disease. Please avoid any hypoglycemia event. Will defer pain management to the primary team. We'll defer the rest of the medical management to the primary team Condition: Is very guarded. The plan is discussed with the patient's nurse. UPDATE: Repeat CT of the head is reported as degenerative and nonspecific white matter most typical remote ischemia. No acute hemorrhage or mass effect. Personally reviewed the CT of the head there is no acute or subacute ischemia and there is no intraparenchymal hemorrhage. Will follow-up with patient sporadically. Ish Deshpande M.D. Neuro-hospitalist Time with Patient: Less than 30
[2021-03-26] MEDS: DARBEPOETIN ALFA 40 MCG/0.4 ML SYRINGE SQ SCH (12:00)
[2021-03-26 12:19] LABS: Glucose,Whole Blood 66 mg/dL (75-99)
[2021-03-26 12:42] LABS: Glucose,Whole Blood 76 mg/dL (75-99)
--- NOTE | 2021-03-26 13:32 | CT ---
EXAMINATION TYPE: CT brain wo con DATE OF EXAM: 03/26/2021 COMPARISON: 03/24/2021 HISTORY: Altered mental status. CT DLP: 1257 mGycm Automated exposure control for dose reduction was used. FINDINGS: Changes of chronic sinusitis. Orbits are symmetric. Moderate generalized degenerative change. Low-att enuation the white matter is nonspecific but most typical remote white matter ischemia. No acute hemo rrhage or mass effect. Craniocervical junction maintained. Sella turcica has a normal appearance. IMPRESSION: DEGENERATIVE AND NONSPECIFIC WHITE MATTER MOST TYPICAL REMOTE ISCHEMIA. NO ACUTE HEMORRHAGE OR MASS E FFECT. IF THERE IS CONCERN FOR ACUTE ISCHEMIA CORRELATE WITH MRI CLINICALLY WARRANTED.
[2021-03-26] MEDS: DEXTROSE 10% IN WATER 500 ML in EMPTY BAG 1 BAG IV SCH (13:36)
[2021-03-26 14:38] LABS: Glucose,Whole Blood 81 mg/dL (75-99)
[2021-03-26 17:18] LABS: Glucose,Whole Blood 83 mg/dL (75-99)
[2021-03-26] MEDS: HYDROmorphone 0.5 MG/0.5 ML SYRINGE IVP PRN (18:06)
[2021-03-26 20:21] LABS: Glucose,Whole Blood 91 mg/dL (75-99)
[2021-03-26 22:41] LABS: Folate, Serum >20.00 ng/mL (4.40-31.00)
[2021-03-27] MEDS: CEFEPIME 1 GM in SODIUM CHLORIDE 0.9% 50 ML IVPB SCH ×3 (00:06→23:42)
[2021-03-27] MEDS: HYDROmorphone 0.5 MG/0.5 ML SYRINGE IVP PRN ×5 (00:43→23:41)
[2021-03-27] MEDS: APIXABAN 2.5 MG TABLET PO SCH ×3 (00:49→21:41)
[2021-03-27] MEDS: hydrALAZINE HCL 25 MG TAB PO SCH ×4 (00:49→21:42)
[2021-03-27] MEDS: LEVOTHYROXINE 88 MCG TAB PO SCH ×2 (00:49→21:41)
[2021-03-27] MEDS: MULTIVITAMINS, THERA 1 EACH TAB PO SCH ×2 (00:49→21:42)
[2021-03-27] MEDS: SODIUM BICARBONATE TAB 650 MG TAB PO SCH ×3 (00:49→21:42)
[2021-03-27 07:18] LABS: Glucose,Whole Blood 84 mg/dL (75-99)
[2021-03-27] MEDS: carvediloL 12.5 MG TAB PO SCH ×2 (07:39→16:57)
[2021-03-27] MEDS: allopurinoL 100 MG TAB PO SCH (07:39)
[2021-03-27] MEDS: ESCITALOPRAM 10 MG TAB PO SCH (07:39)
[2021-03-27] MEDS: DOCUSATE 100 MG CAP PO SCH (07:39)
[2021-03-27] MEDS: FERROUS SULFATE 325 MG TAB PO SCH (07:40)
[2021-03-27] MEDS: FUROSEMIDE 40 MG TAB PO SCH ×2 (07:40→16:34)
[2021-03-27] MEDS: polyethylene glycoL 3350 17 GM POWD.PACK PO SCH (07:40)
[2021-03-27] MEDS: DEXTROSE 10% IN WATER 500 ML in EMPTY BAG 1 BAG IV SCH (07:54)
--- NOTE | 2021-03-27 08:18 | PN ---
PROGRESS NOTE DATE OF SERVICE: 03/26/2021 REASON FOR FOLLOWUP: Morganella bacteremia. INTERVAL HISTORY: Patient is afebrile. Patient's mentation remains to be an issue. He is currently on 3 L nasal cannula. No vomiting, diarrhea or any other changes reported by the nursing staff. Patient himself unable to provide any history. PHYSICAL EXAMINATION: Blood pressure 160/51 with a pulse of 61, temperature 97.6. He is 94% on 3 L nasal cannula. General description is an elderly male lying in bed in no distress. Respiratory system: Unlabored breathing, clear to auscultation anteriorly. Heart S1, S2. Regular rate and rhythm. Abdomen soft, no tenderness. Right leg is currently dressed. No obvious drainage on the dressing. LABS: No new labs have been obtained today. Repeat culture has been negative so far. DIAGNOSTIC IMPRESSION AND PLAN: Patient with Morganella bacteremia possible. He pneumonia. Repeat cultures have been negative. Patient is covered cefepime to continue while monitoring clinical course closely. Continue supportive care. MMODL / IJN: [id number] /
--- NOTE | 2021-03-27 09:20 | P.PN ---
Subjective Patient is seen in follow-up for end-stage renal disease. He is maintained on hemodialysis on Monday schedule. Blood culture positive for Morganella. Repeat cultures negative. On IV antibiotics. Patient remains confused. Morphine discontinued. Being followed by neurology. No problems with dialysis yesterday. Vital signs are stable. General: Currently sleeping. HEENT: Head exam is unremarkable. LUNGS: Breath sounds decreased. HEART: Rate and Rhythm are regular. ABDOMEN: Soft, no distention. EXTREMITITES: Trace edema. No drainage. Objective - Vital Signs Vital signs: Vital Signs Temp 98.4 F 03/27/21 07:10 Pulse 62 03/27/21 07:10 Resp 17 03/27/21 08:00 BP 151/53 03/27/21 07:10 Pulse Ox 96 03/27/21 07:10 Intake & Output 03/26/21 03/27/21 03/27/21 18:59 06:59 18:59 Intake Total 1999 Balance 1999 Weight 69.3 kg Intake: Hemodialysis 1999 Other: Voiding Method Diaper Diaper Diaper # Voids 1 1 - Labs CBC & Chem 7: 03/26/21 08:06 03/26/21 08:06 Labs: Abnormal Lab Results - Last 24 Hours (Table) 03/26/21 03/26/21 03/26/21 Range/Units 08:06 08:06 08:06 WBC 13.8 H (3.8-10.6) k/uL RBC 3.02 L (4.30-5.90) m/uL Hgb 9.7 L (13.0-17.5) gm/dL Hct 30.5 L (39.0-53.0) % MCV 101.0 H (80.0-100.0) fL RDW 16.2 H (11.5-15.5) % Neutrophils # 12.1 H (1.3-7.7) k/uL Lymphocytes # 0.4 L (1.0-4.8) k/uL Carbon Dioxide 17 L (22-30) mmol/L BUN 84 H (9-20) mg/dL Creatinine 4.16 H (0.66-1.25) mg/dL POC Glucose (mg/dL) (75-99) mg/dL ALT 51 H (4-49) U/L Total Protein 5.5 L (6.3-8.2) g/dL Albumin 2.9 L (3.5-5.0) g/dL Vitamin B12 1600.0 H (200.0-944.0) pg/mL 03/26/21 03/26/21 Range/Units 09:33 12:18 WBC (3.8-10.6) k/uL RBC (4.30-5.90) m/uL Hgb (13.0-17.5) gm/dL Hct (39.0-53.0) % MCV (80.0-100.0) fL RDW (11.5-15.5) % Neutrophils # (1.3-7.7) k/uL Lymphocytes # (1.0-4.8) k/uL Carbon Dioxide (22-30) mmol/L BUN (9-20) mg/dL Creatinine (0.66-1.25) mg/dL POC Glucose (mg/dL) 74 L 66 L (75-99) mg/dL ALT (4-49) U/L Total Protein (6.3-8.2) g/dL Albumin (3.5-5.0) g/dL Vitamin B12 (200.0-944.0) pg/mL Microbiology - Last 24 Hours (Table) 03/25/21 17:43 Urine Culture - Final Urine,Catheterized Assessment and Plan Plan: Assessment: 1. End-stage renal disease maintained on hemodialysis on Monday schedule. 2. Morganella bacteremia on IV antibiotics. Infectious disease following. Blood cultures from the permacath negative. No acute changes noted on CT. 3. Hypertension with chronic kidney disease. Stable. 4. Volume overload. Improved postdialysis. 5. Metabolic acidosis secondary to chronic kidney disease. Expect improvement postdialysis. On oral bicarb as well. 6. Anemia of chronic kidney disease. On Aranesp. 7. Altered mental status secondary to metabolic encephalopathy. Neurology following. Morphine discontinued. 8. Hypoglycemia maintained on D10. Plan: Hemodialysis Monday. Cathflo given to prevent catheter clotting.
[2021-03-27 13:53] LABS: Basophils # (M) 0.13 X 10*3/uL (0.00-0.10); Eosinophils # (M) 0.13 X 10*3/uL (0.04-0.35); HCT 27.8 % (39.6-50.0); HGB 8.7 g/dL (13.0-17.0); Lymphocytes # (M) 0.67 X 10*3/uL (0.90-5.00); MCH 30.6 pg (27.0-32.0); MCHC 31.3 g/dL (32.0-37.0); MCV 97.9 fL (80.0-97.0); Mean Platelet Volume 10.4 fL (9.5-12.2); Metamyelocytes % 2 % (0-0); Neutrophils # (M) 11.84 X 10*3/uL (2.00-8.90); Neutrophils % (M) 88 %; Platelet Count 310 X 10*3/uL (140-440); RBC 2.84 X 10*6/uL (4.40-5.60); RDW 16.5 % (11.5-14.5); WBC 13.45 X 10*3/uL (4.50-10.00)
--- NOTE | 2021-03-27 14:19 | P.PN ---
Subjective Progress Note Date: 03/27/21 Sean Lin, is an 80-year-old male who presented to [facility] emergency room with a chief complaint of weakness and febrile illness He was evaluated in the emergency room vital examination on presentation revealed a temperature of 100.2 pulse 64 respiration 18 blood pressure 158/56 p ulse ox 100% on 2 L nasal cannula Laboratory data revealed a white blood count of 15.6 hemoglobin 12.4 platelet count 323 sodium 136 potassium 4.5 BUN 31 creatinine 2.4 to Testing in the emergency room revealed chest x-ray revealed evidence of cardiomegaly otherwise no active cardiopulmonary disease, EKG revealed ventricular paced rhythm Patient was admitted to medical floor for further evaluation and treatment Past medical history is significant for end-stage renal disease on hemodialysis, chronic systolic congestive heart failure, history of cardiac arrhythmia status post biventricular pacemaker implant, underlying history of COPD, underlying history of paroxysmal atrial fibrillation, underlying history of coronary artery disease, underlying history of peripheral arterial disease On review of systems patient is alert and oriented 3 in no apparent distress he is complaining of fever and some chills, he is also complaining of right lower extremity pain otherwise he denies any complaints there is no headache or dizziness no chest pain no shortness of breath no cough no nausea or vomiting no abdominal pain no diarrhea no blood in the stools no burning with urination no frequency or urgency and no hematuria On 03/19/2021 patient is alert and oriented 3. Patient remains on IV Maxipime for cellulitis. Patient reports he does feel significantly improved. Nephrology services following patient to receive hemodialysis today. Vascular surgery and infectious disease services also consulted. At this time patient denies chest pain or shortness breath. Patient denies nausea vomiting or diarrhea. Patient denies any urinary burning or frequency. On 03/20/2021 Patient was seen and examined on the medical floor, he is alert and oriented x 3 in no distress, he denies any complaints there is no fever or chills no headache or dizziness no chest pain no shortness of breath no palpitation no cough no nausea or vomiting no abdominal pain no diarrhea no blood in the stools no burning with urination no frequency or urgency and no hematuria, there is no weakness or numbness in any of the extremities no change in vision speech or gait. Patient was evaluated by nephrology and is continued on hemodialysis, he was also evaluated by infectious disease and is currently maintained on IV cefepime, he was evaluated by vascular surgery and no recommendation for any intervention at this time. On 03/21/2021 patient alert and oriented 3 currently eating breakfast. Blood culture positive for Morganella morganii. Per infectious disease likely source urine or abdomen. Urine is clean. CT of abdomen has been ordered per infectious disease. Patient remains on IV antibiotics for lower infection of any cellulitis. Current white blood cell 13.17. Social work PT and OT also c onsulted for discharge planning. Per nursing staff patient is very weak will likely require ECF facility upon discharge. On 03/22/2021 patient alert and oriented 3. Patient remains on IV antibiotics. labs Currently pending rate currently 97.6, heart rate 62, blood pressure 121/55 and patient oxygen saturation 96% on room air. Patient denies chest pain or shortness breath. Patient denies nausea vomiting or diarrhea. Patient denies any urinary burning or frequency. On 03/23/2021 patient is still complaining of lower extremity pain otherwise he states he is improving there is no fever or chills no headache or dizziness no chest pain no shortness of breath no cough no nausea or vomiting no chest pain no diarrhea no blood in the stools no burning with urination no frequency or urgency no hematuria On 03/24/2021 patient is confused. Per nursing staff patient will pull at lines an attempt to get out of bed. Patient currently getting hemodialysis. Potassium elevated at 65. Vascular surgery also consulted in regards to his leg. Patient remains on IV antibiotics with blood cell slightly increasing infectious disease services are following. On 03/25/2021 Patient was seen and examined on the medical floor, he is somnolent responsive in no apparent distress, he received IV Dilaudid for pain management, his son is stating that patient was holding his pelvic area with signs of pain, at this time will repeat computed tomography scan of the pelvis, I will add IV Tylenol every 6 hours when necessary and try to decrease use of narcotics. On 03/26/2021 patient remains confused. Nephrology and neurology services are following. Patient to receive hemodialysis today. CT showing no acute changes. On 03/27/2021 patient is more alert today he is confused, he answers 1 or 2 questions by yes or no and then he remains nonverbal there is no apparent distress there is no fever or chills, his temperature is 97.7 pulse 56 respirations 16 blood pressure 149/55 pulse ox 99% on 3 L nasal cannula white blood count of 13.4 hemoglobin 8.7 platelet count 310 Objective - Vital Signs Vital signs: Vital Signs Temp 98.4 F 03/27/21 07:10 Pulse 62 03/27/21 07:10 Resp 17 03/27/21 08:00 BP 151/53 03/27/21 07:10 Pulse Ox 96 03/27/21 07:10 Intake & Output 03/26/21 03/27/21 03/27/21 18:59 06:59 18:59 Intake Total 1999 Balance 1999 Weight 69.3 kg Intake: Hemodialysis 1999 Other: Voiding Method Diaper Diaper Diaper # Voids 1 1 - Exam In general patient is alert and oriented x 3 in no distress HEENT head normocephalic and atraumatic Neck is supple no JVD no goiter no lymphadenopathy no carotid bruit Chest examination is clear to auscultation no crackles no wheezing Cardiac exam reveals regular heart sounds S1 and S2 no gallops no murmurs Abdomen is soft nontender no organomegaly with normal bowel sounds Extremity exam bilateral lower extremity erythema in the pretibial area right worse than left there are multiple ulcerations on the toes Neurological examination reveals no gross focal deficits - Labs CBC & Chem 7: 03/27/21 06:40 03/26/21 08:06 Labs: Abnormal Lab Results - Last 24 Hours (Table) 03/26/21 03/26/21 Range/Units 08:06 12:18 POC Glucose (mg/dL) 66 L (75-99) mg/dL Vitamin B12 1600.0 H (200.0-944.0) pg/mL Microbiology - Last 24 Hours (Table) 03/25/21 17:43 Urine Culture - Final Urine,Catheterized Assessment and Plan Plan: Febrile illness with leukocytosis, likely related to lower extremity cellulitis, and possibly infected catheter patient has positive blood culture for gram- negative bacilli and currently he is maintained on IV cefepime, infectious disease following Bacteremia with Morganella morganii. Infectious disease services are following. 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 At this time patient is admitted to medical floor Nephrology consultation requested for continuation of hemodialysis Infectious disease vascular surgery and cardiology consultation requested Positive bacteremia, Prognosis is guarded due to advanced medical problems with multisystem involvem ent
[2021-03-27 14:22] LABS: African American GFR (CKD) 21.4 (60.0-200.0); Albumin 3.2 g/dL (3.8-4.9); Albumin/Globulin Ratio 1.54 (1.60-3.17); Anion Gap 15.3 mmol/L (4.00-12.00); BUN/Creat Ratio 14.17 Ratio (12.00-20.00); Blood Urea Nitrogen 42.8 mg/dL (9.0-27.0); Calcium 8.6 mg/dL (8.7-10.3); Carbon Dioxide 21.4 mmol/L (21.6-31.8); Globulin 2.1 g/dL (1.6-3.3); Non-African American GFR(CKD) 18.5 (60.0-200.0); Potassium 4.1 mmol/L (3.5-5.5); Total Bilirubin 0.4 mg/dL (0.30-1.20); Total Protein 5.2 g/dL (6.2-8.2)
[2021-03-27 17:10] LABS: Glucose,Whole Blood 73 mg/dL (75-99)
[2021-03-27 20:18] LABS: Glucose,Whole Blood 91 mg/dL (75-99)
--- NOTE | 2021-03-27 22:15 | PN ---
PROGRESS NOTE DATE OF SERVICE: 03/27/2021 REASON FOR FOLLOWUP: Morganella bacteremia. INTERVAL HISTORY: The patient is afebrile. The patient remains hemodynamically stable, not on any pressor support. Currently on room air. Mentation remains an issue. No vomiting or diarrhea has been reported by the nursing staff. PHYSICAL EXAMINATION: Blood pressure 157/ with a pulse of 60, temperature 97.8. He is 95% on room air. General description is an elderly male lying in bed in no distress. Respiratory system: Unlabored breathing, decreased breath sounds at the base. No wheeze. Heart S1, S2. Regular rate and rhythm. Abdomen soft, no tenderness. Right leg is currently dressed. No obvious drainage on the dressing. LABS: Hemoglobin 8.3, white count 13.45, creatinine 3.0. DIAGNOSTIC IMPRESSION AND PLAN: Patient with Morganella bacteremia, initially concerning for possible PermCath related; however, patient cleared bacteremia rather quickly and repeat culture has been negative. CT of abdomen and pelvis did not show any acute abnormality, and a repeat CT of the pelvis done yesterday did not show any acute abnormality, either. The patient is on cefepime. Son was at the bedside. His questions and concerns were answered. MMODL / IJN: [id number] /
[2021-03-28] MEDS: DEXTROSE 10% IN WATER 500 ML in EMPTY BAG 1 BAG IV SCH (05:25)
[2021-03-28] MEDS: carvediloL 12.5 MG TAB PO SCH ×2 (06:56→16:38)
[2021-03-28] MEDS: ESCITALOPRAM 10 MG TAB PO SCH (06:56)
[2021-03-28] MEDS: hydrALAZINE HCL 25 MG TAB PO SCH ×3 (06:56→20:03)
[2021-03-28] MEDS: allopurinoL 100 MG TAB PO SCH (06:56)
[2021-03-28] MEDS: FERROUS SULFATE 325 MG TAB PO SCH (06:56)
[2021-03-28] MEDS: DOCUSATE 100 MG CAP PO SCH (06:56)
[2021-03-28] MEDS: polyethylene glycoL 3350 17 GM POWD.PACK PO SCH (06:56)
[2021-03-28] MEDS: FUROSEMIDE 40 MG TAB PO SCH ×2 (06:56→16:02)
[2021-03-28] MEDS: APIXABAN 2.5 MG TABLET PO SCH ×2 (06:56→20:02)
[2021-03-28] MEDS: SODIUM BICARBONATE TAB 650 MG TAB PO SCH ×2 (06:57→20:03)
[2021-03-28 07:14] LABS: Glucose,Whole Blood 111 mg/dL (75-99)
[2021-03-28 09:07] LABS: HCT 28.6 % (39.6-50.0); HGB 9.1 g/dL (13.0-17.0); MCH 30.8 pg (27.0-32.0); MCHC 31.8 g/dL (32.0-37.0); MCV 96.9 fL (80.0-97.0); Mean Platelet Volume 10.5 fL (9.5-12.2); Platelet Count 353 X 10*3/uL (140-440); RBC 2.95 X 10*6/uL (4.40-5.60); RDW 16.6 % (11.5-14.5); WBC 14.79 X 10*3/uL (4.50-10.00)
[2021-03-28 09:27] LABS: African American GFR (CKD) 14.8 (60.0-200.0); Albumin 3.1 g/dL (3.8-4.9); Albumin/Globulin Ratio 1.41 (1.60-3.17); Anion Gap 18.7 mmol/L (4.00-12.00); BUN/Creat Ratio 12.54 Ratio (12.00-20.00); Blood Urea Nitrogen 51.4 mg/dL (9.0-27.0); Calcium 8.6 mg/dL (8.7-10.3); Carbon Dioxide 18.3 mmol/L (21.6-31.8); Globulin 2.2 g/dL (1.6-3.3); Non-African American GFR(CKD) 12.8 (60.0-200.0); Potassium 4.4 mmol/L (3.5-5.5); Total Bilirubin 0.3 mg/dL (0.30-1.20); Total Protein 5.3 g/dL (6.2-8.2)
--- NOTE | 2021-03-28 09:48 | P.PN ---
Subjective Patient is seen in follow-up for end-stage renal disease. He is maintained on hemodialysis on Monday schedule. Blood culture positive for Morganella. Repeat cultures negative. On IV antibiotics. Patient remains confused. Morphine discontinued. Being followed by neurology. Vital signs are stable. General: Currently sleeping. HEENT: Head exam is unremarkable. LUNGS: Breath sounds decreased. HEART: Rate and Rhythm are regular. ABDOMEN: Soft, no distention. EXTREMITITES: Trace edema. No drainage. Objective - Vital Signs Vital signs: Vital Signs Temp 97.1 F L 03/28/21 07:10 Pulse 62 03/28/21 07:10 Resp 18 03/28/21 08:00 BP 173/54 03/28/21 07:10 Pulse Ox 95 03/28/21 07:10 Intake & Output 03/27/21 03/28/21 03/28/21 18:59 06:59 18:59 Intake Total 250 0 Balance 250 0 Weight 67.5 kg Intake: IV 250 Cefepime 1 gm In Sodium 50 Chloride 0.9% 50 ml @ 12. 5 mls/hr IVPB Q12H [facility] Rx #:[id number] Dextrose 10% in Water 500 200 ml In Empty Bag 1 bag @ 25 mls/hr IV .Q20H [facility] Rx #:[id number] Oral 0 Other: Voiding Method Diaper Diaper Diaper # Voids 1 1 - Labs CBC & Chem 7: 03/28/21 06:12 03/28/21 06:12 Labs: Abnormal Lab Results - Last 24 Hours (Table) 03/27/21 03/27/21 03/27/21 Range/Units 06:40 06:40 17:09 WBC 13.45 H (4.50-10.00) X 10*3/uL RBC 2.84 L (4.40-5.60) X 10*6/uL Hgb 8.7 L (13.0-17.0) g/dL Hct 27.8 L (39.6-50.0) % MCV 97.9 H (80.0-97.0) fL MCHC 31.3 L (32.0-37.0) g/dL RDW 16.5 H (11.5-14.5) % Absolute Nucleated RBC 0.03 H (0.00-0.00) X 10*3/uL Metamyelocytes % 2 H (0-0) % Neutrophils # (Manual) 11.84 H (2.00-8.90) X 10*3/uL Lymphocytes # (Manual) 0.67 L (0.90-5.00) X 10*3/uL Basophils # (Manual) 0.13 H (0.00-0.10) X 10*3/uL NRBC/100 WBC Diff 0.2 H (0.0-0.0) /100 WBCS Carbon Dioxide 21.4 L (21.6-31.8) mmol/L Anion Gap 15.30 H (4.00-12.00) mmol/L BUN 42.8 H (9.0-27.0) mg/dL Creatinine 3.0 H (0.6-1.5) mg/dL Est GFR (CKD-EPI)AfAm 21.4 L (60.0-200.0) Est GFR (CKD-EPI)NonAf 18.5 L (60.0-200.0) POC Glucose (mg/dL) 73 L (75-99) mg/dL Calcium 8.6 L (8.7-10.3) mg/dL Total Protein 5.2 L (6.2-8.2) g/dL Albumin 3.2 L (3.8-4.9) g/dL Albumin/Globulin Ratio 1.54 L (1.60-3.17) g/dL 03/28/21 03/28/21 03/28/21 Range/Units 06:12 06:12 07:06 WBC 14.79 H (4.50-10.00) X 10*3/uL RBC 2.95 L (4.40-5.60) X 10*6/uL Hgb 9.1 L (13.0-17.0) g/dL Hct 28.6 L (39.6-50.0) % MCV (80.0-97.0) fL MCHC 31.8 L (32.0-37.0) g/dL RDW 16.6 H (11.5-14.5) % Absolute Nucleated RBC 0.04 H (0.00-0.00) X 10*3/uL Metamyelocytes % (0-0) % Neutrophils # (Manual) (2.00-8.90) X 10*3/uL Lymphocytes # (Manual) (0.90-5.00) X 10*3/uL Basophils # (Manual) (0.00-0.10) X 10*3/uL NRBC/100 WBC Diff 0.3 H (0.0-0.0) /100 WBCS Carbon Dioxide 18.3 L (21.6-31.8) mmol/L Anion Gap 18.70 H (4.00-12.00) mmol/L BUN 51.4 H (9.0-27.0) mg/dL Creatinine 4.1 H (0.6-1.5) mg/dL Est GFR (CKD-EPI)AfAm 14.8 L (60.0-200.0) Est GFR (CKD-EPI)NonAf 12.8 L (60.0-200.0) POC Glucose (mg/dL) 111 H (75-99) mg/dL Calcium 8.6 L (8.7-10.3) mg/dL Total Protein 5.3 L (6.2-8.2) g/dL Albumin 3.1 L (3.8-4.9) g/dL Albumin/Globulin Ratio 1.41 L (1.60-3.17) g/dL Microbiology - Last 24 Hours (Table) 03/26/21 11:00 Blood Culture - Preliminary Blood No Growth after 24 hours Assessment and Plan Plan: Assessment: 1. End-stage renal disease maintained on hemodialysis on Monday schedule. 2. Morganella bacteremia on IV antibiotics. Infectious disease following. Blood cultures from the permacath negative. No acute changes noted on CT. 3. Hypertension with chronic kidney disease. Exacerbated by his confusion and agitation. 4. Volume overload. Improved postdialysis. 5. Metabolic acidosis secondary to chronic kidney disease. Expect improvement postdialysis. On oral bicarb as well but not able to take oral medications at this time. 6. Anemia of chronic kidney disease. On Aranesp. 7. Altered mental status secondary to metabolic encephalopathy. Neurology following. Morphine discontinued. 8. Hypoglycemia maintained on D10. Plan: Hemodialysis Monday. Patient received Cathflo to prevent catheter clotting. Add IV hydralazine as needed for systolic blood pressure greater than 160.
--- NOTE | 2021-03-28 10:02 | P.PN ---
Subjective Progress Note Date: 03/28/21 Sean Lin, is an 80-year-old male who presented to [facility] emergency room with a chief complaint of weakness and febrile illness He was evaluated in the emergency room vital examination on presentation revealed a temperature of 100.2 pulse 64 respiration 18 blood pressure 158/56 p ulse ox 100% on 2 L nasal cannula Laboratory data revealed a white blood count of 15.6 hemoglobin 12.4 platelet count 323 sodium 136 potassium 4.5 BUN 31 creatinine 2.4 to Testing in the emergency room revealed chest x-ray revealed evidence of cardiomegaly otherwise no active cardiopulmonary disease, EKG revealed ventricular paced rhythm Patient was admitted to medical floor for further evaluation and treatment Past medical history is significant for end-stage renal disease on hemodialysis, chronic systolic congestive heart failure, history of cardiac arrhythmia status post biventricular pacemaker implant, underlying history of COPD, underlying history of paroxysmal atrial fibrillation, underlying history of coronary artery disease, underlying history of peripheral arterial disease On review of systems patient is alert and oriented 3 in no apparent distress he is complaining of fever and some chills, he is also complaining of right lower extremity pain otherwise he denies any complaints there is no headache or dizziness no chest pain no shortness of breath no cough no nausea or vomiting no abdominal pain no diarrhea no blood in the stools no burning with urination no frequency or urgency and no hematuria On 03/19/2021 patient is alert and oriented 3. Patient remains on IV Maxipime for cellulitis. Patient reports he does feel significantly improved. Nephrology services following patient to receive hemodialysis today. Vascular surgery and infectious disease services also consulted. At this time patient denies chest pain or shortness breath. Patient denies nausea vomiting or diarrhea. Patient denies any urinary burning or frequency. On 03/20/2021 Patient was seen and examined on the medical floor, he is alert and oriented x 3 in no distress, he denies any complaints there is no fever or chills no headache or dizziness no chest pain no shortness of breath no palpitation no cough no nausea or vomiting no abdominal pain no diarrhea no blood in the stools no burning with urination no frequency or urgency and no hematuria, there is no weakness or numbness in any of the extremities no change in vision speech or gait. Patient was evaluated by nephrology and is continued on hemodialysis, he was also evaluated by infectious disease and is currently maintained on IV cefepime, he was evaluated by vascular surgery and no recommendation for any intervention at this time. On 03/21/2021 patient alert and oriented 3 currently eating breakfast. Blood culture positive for Morganella morganii. Per infectious disease likely source urine or abdomen. Urine is clean. CT of abdomen has been ordered per infectious disease. Patient remains on IV antibiotics for lower infection of any cellulitis. Current white blood cell 13.17. Social work PT and OT also c onsulted for discharge planning. Per nursing staff patient is very weak will likely require ECF facility upon discharge. On 03/22/2021 patient alert and oriented 3. Patient remains on IV antibiotics. labs Currently pending rate currently 97.6, heart rate 62, blood pressure 121/55 and patient oxygen saturation 96% on room air. Patient denies chest pain or shortness breath. Patient denies nausea vomiting or diarrhea. Patient denies any urinary burning or frequency. On 03/23/2021 patient is still complaining of lower extremity pain otherwise he states he is improving there is no fever or chills no headache or dizziness no chest pain no shortness of breath no cough no nausea or vomiting no chest pain no diarrhea no blood in the stools no burning with urination no frequency or urgency no hematuria On 03/24/2021 patient is confused. Per nursing staff patient will pull at lines an attempt to get out of bed. Patient currently getting hemodialysis. Potassium elevated at 65. Vascular surgery also consulted in regards to his leg. Patient remains on IV antibiotics with blood cell slightly increasing infectious disease services are following. On 03/25/2021 Patient was seen and examined on the medical floor, he is somnolent responsive in no apparent distress, he received IV Dilaudid for pain management, his son is stating that patient was holding his pelvic area with signs of pain, at this time will repeat computed tomography scan of the pelvis, I will add IV Tylenol every 6 hours when necessary and try to decrease use of narcotics. On 03/26/2021 patient remains confused. Nephrology and neurology services are following. Patient to receive hemodialysis today. CT showing no acute changes. On 03/27/2021 patient is more alert today he is confused, he answers 1 or 2 questions by yes or no and then he remains nonverbal there is no apparent distress there is no fever or chills, his temperature is 97.7 pulse 56 respirations 16 blood pressure 149/55 pulse ox 99% on 3 L nasal cannula white blood count of 13.4 hemoglobin 8.7 platelet count 310 On 03/28/2021 patient remains confused. Patient does wake up follow some commands. Patient currently on room air pulse ox 95% blood pressure 151/53 heart rate 77 and temperature 97.7. Objective - Vital Signs Vital signs: Vital Signs Temp 97.1 F L 03/28/21 07:10 Pulse 62 03/28/21 07:10 Resp 18 03/28/21 08:00 BP 173/54 03/28/21 07:10 Pulse Ox 95 03/28/21 07:10 Intake & Output 03/27/21 03/28/21 03/28/21 18:59 06:59 18:59 Intake Total 250 0 Balance 250 0 Weight 67.5 kg Intake: IV 250 Cefepime 1 gm In Sodium 50 Chloride 0.9% 50 ml @ 12. 5 mls/hr IVPB Q12H [facility] Rx #:[id number] Dextrose 10% in Water 500 200 ml In Empty Bag 1 bag @ 25 mls/hr IV .Q20H [facility] Rx #:[id number] Oral 0 Other: Voiding Method Diaper Diaper Diaper # Voids 1 1 - Exam In general patient is alert and oriented x 3 in no distress HEENT head normocephalic and atraumatic Neck is supple no JVD no goiter no lymphadenopathy no carotid bruit Chest examination is clear to auscultation no crackles no wheezing Cardiac exam reveals regular heart sounds S1 and S2 no gallops no murmurs Abdomen is soft nontender no organomegaly with normal bowel sounds Extremity exam bilateral lower extremity erythema in the pretibial area right worse than left there are multiple ulcerations on the toes Neurological examination reveals no gross focal deficits - Labs CBC & Chem 7: 03/28/21 06:12 03/28/21 06:12 Labs: Abnormal Lab Results - Last 24 Hours (Table) 03/27/21 03/27/21 03/27/21 Range/Units 06:40 06:40 17:09 WBC 13.45 H (4.50-10.00) X 10*3/uL RBC 2.84 L (4.40-5.60) X 10*6/uL Hgb 8.7 L (13.0-17.0) g/dL Hct 27.8 L (39.6-50.0) % MCV 97.9 H (80.0-97.0) fL MCHC 31.3 L (32.0-37.0) g/dL RDW 16.5 H (11.5-14.5) % Absolute Nucleated RBC 0.03 H (0.00-0.00) X 10*3/uL Metamyelocytes % 2 H (0-0) % Neutrophils # (Manual) 11.84 H (2.00-8.90) X 10*3/uL Lymphocytes # (Manual) 0.67 L (0.90-5.00) X 10*3/uL Basophils # (Manual) 0.13 H (0.00-0.10) X 10*3/uL NRBC/100 WBC Diff 0.2 H (0.0-0.0) /100 WBCS Carbon Dioxide 21.4 L (21.6-31.8) mmol/L Anion Gap 15.30 H (4.00-12.00) mmol/L BUN 42.8 H (9.0-27.0) mg/dL Creatinine 3.0 H (0.6-1.5) mg/dL Est GFR (CKD-EPI)AfAm 21.4 L (60.0-200.0) Est GFR (CKD-EPI)NonAf 18.5 L (60.0-200.0) POC Glucose (mg/dL) 73 L (75-99) mg/dL Calcium 8.6 L (8.7-10.3) mg/dL Total Protein 5.2 L (6.2-8.2) g/dL Albumin 3.2 L (3.8-4.9) g/dL Albumin/Globulin Ratio 1.54 L (1.60-3.17) g/dL 03/28/21 03/28/21 03/28/21 Range/Units 06:12 06:12 07:06 WBC 14.79 H (4.50-10.00) X 10*3/uL RBC 2.95 L (4.40-5.60) X 10*6/uL Hgb 9.1 L (13.0-17.0) g/dL Hct 28.6 L (39.6-50.0) % MCV (80.0-97.0) fL MCHC 31.8 L (32.0-37.0) g/dL RDW 16.6 H (11.5-14.5) % Absolute Nucleated RBC 0.04 H (0.00-0.00) X 10*3/uL Metamyelocytes % (0-0) % Neutrophils # (Manual) (2.00-8.90) X 10*3/uL Lymphocytes # (Manual) (0.90-5.00) X 10*3/uL Basophils # (Manual) (0.00-0.10) X 10*3/uL NRBC/100 WBC Diff 0.3 H (0.0-0.0) /100 WBCS Carbon Dioxide 18.3 L (21.6-31.8) mmol/L Anion Gap 18.70 H (4.00-12.00) mmol/L BUN 51.4 H (9.0-27.0) mg/dL Creatinine 4.1 H (0.6-1.5) mg/dL Est GFR (CKD-EPI)AfAm 14.8 L (60.0-200.0) Est GFR (CKD-EPI)NonAf 12.8 L (60.0-200.0) POC Glucose (mg/dL) 111 H (75-99) mg/dL Calcium 8.6 L (8.7-10.3) mg/dL Total Protein 5.3 L (6.2-8.2) g/dL Albumin 3.1 L (3.8-4.9) g/dL Albumin/Globulin Ratio 1.41 L (1.60-3.17) g/dL Microbiology - Last 24 Hours (Table) 03/26/21 11:00 Blood Culture - Preliminary Blood No Growth after 24 hours Assessment and Plan Plan: Febrile illness with leukocytosis, likely related to lower extremity cellulitis, and possibly infected catheter patient has positive blood culture for gram-negative bacilli and currently he is maintained on IV cefepime, infectious disease following Bacteremia with Morganella morganii. Infectious disease services are following. CT of abdomen negative. 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 At this time patient is admitted to medical floor Nephrology consultation requested for continuation of hemodialysis Infectious disease vascular surgery and cardiology consultation requested Positive bacteremia, Prognosis is guarded due to advanced medical problems with multisystem involvement
[2021-03-28] MEDS: hydrALAZINE HCL 20 MG/ML 1 ML VIAL IVP PRN ×2 (10:05→16:33)
[2021-03-28 10:24] LABS: Basophils # (M) 0 X 10*3/uL (0.00-0.10); Eosinophils # (M) 0 X 10*3/uL (0.04-0.35); Lymphocytes # (M) 0.44 X 10*3/uL (0.90-5.00); Metamyelocytes % 1 % (0-0); Myelocytes % 1 % (0-0); Neutrophils # (M) 13.75 X 10*3/uL (2.00-8.90); Neutrophils % (M) 93 %
[2021-03-28] MEDS: CEFEPIME 1 GM in SODIUM CHLORIDE 0.9% 50 ML IVPB SCH (11:31)
[2021-03-28 12:18] LABS: Glucose,Whole Blood 123 mg/dL (75-99)
[2021-03-28 16:59] LABS: Glucose,Whole Blood 104 mg/dL (75-99)
[2021-03-28] MEDS: LEVOTHYROXINE 88 MCG TAB PO SCH (20:02)
[2021-03-28] MEDS: MULTIVITAMINS, THERA 1 EACH TAB PO SCH (20:02)
[2021-03-28] MEDS: HYDROmorphone 0.5 MG/0.5 ML SYRINGE IVP PRN (20:12)
[2021-03-28 20:22] LABS: Glucose,Whole Blood 113 mg/dL (75-99)
--- NOTE | 2021-03-28 23:47 | PN ---
PROGRESS NOTE DATE OF SERVICE: 03/28/2021 REASON FOR FOLLOWUP: Morganella bacteremia. INTERVAL HISTORY: The patient is afebrile. The patient's mentation remains an issue. The patient is unable to provide any history. No vomiting, diarrhea or any other changes reported by the nursing staff. PHYSICAL EXAMINATION: Blood pressure 175/56, pulse of 60, temperature 98.1. He is 94% on room air. General description is an elderly male lying in bed in no distress. Respiratory system: Unlabored breathing, decreased intensity of breath sounds. No wheeze. Heart S1, S2. Regular rate and rhythm. Abdomen soft, no tenderness. Right leg did have some erythema. No drainage was noticed. LABS: Hemoglobin is 9.1, white count 14.79, BUN of 51.4, creatinine 4.1. DIAGNOSTIC IMPRESSION AND PLAN: Patient with Morganella bacteremia, concern for possible dialysis catheter-related versus abdominal source, less likely right lower extremity cellulitis, covered with cefepime. Mentation remains an issue and more likely metabolic. Nephrology and on the case. Continue supportive care. MMODL / IJN: [id number] /
[2021-03-29] MEDS ORDERED: CEFEPIME 1 GM VIAL ONE
[2021-03-29] MEDS ORDERED: SODIUM CHLORIDE 0.9% 50 ML BAG ONE
[2021-03-29] MEDS: HYDROmorphone 0.5 MG/0.5 ML SYRINGE IVP PRN ×4 (00:53→23:19)
[2021-03-29] MEDS: CEFEPIME 1 GM in SODIUM CHLORIDE 0.9% 50 ML IVPB SCH ×3 (01:34→23:18)
[2021-03-29] MEDS: DEXTROSE 10% IN WATER 500 ML in EMPTY BAG 1 BAG IV SCH ×2 (03:35→21:39)
[2021-03-29 07:33] LABS: Glucose,Whole Blood 122 mg/dL (75-99)
[2021-03-29] MEDS: hydrALAZINE HCL 25 MG TAB PO SCH ×3 (11:17→21:39)
[2021-03-29] MEDS: allopurinoL 100 MG TAB PO SCH (11:17)
[2021-03-29] MEDS: carvediloL 12.5 MG TAB PO SCH ×2 (11:17→16:09)
[2021-03-29] MEDS: ESCITALOPRAM 10 MG TAB PO SCH (11:17)
[2021-03-29] MEDS: FUROSEMIDE 40 MG TAB PO SCH ×2 (11:17→16:09)
[2021-03-29] MEDS: APIXABAN 2.5 MG TABLET PO SCH (11:17)
[2021-03-29] MEDS: DOCUSATE 100 MG CAP PO SCH (11:17)
[2021-03-29] MEDS: FERROUS SULFATE 325 MG TAB PO SCH (11:17)
[2021-03-29] MEDS: polyethylene glycoL 3350 17 GM POWD.PACK PO SCH (11:17)
[2021-03-29] MEDS: SODIUM BICARBONATE TAB 650 MG TAB PO SCH ×2 (11:17→21:39)
[2021-03-29 12:25] LABS: Glucose,Whole Blood 119 mg/dL (75-99)
[2021-03-29 17:42] LABS: Glucose,Whole Blood 110 mg/dL (75-99)
--- NOTE | 2021-03-29 18:46 | P.PN ---
Subjective Progress Note Date: 03/29/21 Sean Lin, is an 80-year-old male who presented to [facility] emergency room with a chief complaint of weakness and febrile illness He was evaluated in the emergency room vital examination on presentation revealed a temperature of 100.2 pulse 64 respiration 18 blood pressure 158/56 p ulse ox 100% on 2 L nasal cannula Laboratory data revealed a white blood count of 15.6 hemoglobin 12.4 platelet count 323 sodium 136 potassium 4.5 BUN 31 creatinine 2.4 to Testing in the emergency room revealed chest x-ray revealed evidence of cardiomegaly otherwise no active cardiopulmonary disease, EKG revealed ventricular paced rhythm Patient was admitted to medical floor for further evaluation and treatment Past medical history is significant for end-stage renal disease on hemodialysis, chronic systolic congestive heart failure, history of cardiac arrhythmia status post biventricular pacemaker implant, underlying history of COPD, underlying history of paroxysmal atrial fibrillation, underlying history of coronary artery disease, underlying history of peripheral arterial disease On review of systems patient is alert and oriented 3 in no apparent distress he is complaining of fever and some chills, he is also complaining of right lower extremity pain otherwise he denies any complaints there is no headache or dizziness no chest pain no shortness of breath no cough no nausea or vomiting no abdominal pain no diarrhea no blood in the stools no burning with urination no frequency or urgency and no hematuria On 03/19/2021 patient is alert and oriented 3. Patient remains on IV Maxipime for cellulitis. Patient reports he does feel significantly improved. Nephrology services following patient to receive hemodialysis today. Vascular surgery and infectious disease services also consulted. At this time patient denies chest pain or shortness breath. Patient denies nausea vomiting or diarrhea. Patient denies any urinary burning or frequency. On 03/20/2021 Patient was seen and examined on the medical floor, he is alert and oriented x 3 in no distress, he denies any complaints there is no fever or chills no headache or dizziness no chest pain no shortness of breath no palpitation no cough no nausea or vomiting no abdominal pain no diarrhea no blood in the stools no burning with urination no frequency or urgency and no hematuria, there is no weakness or numbness in any of the extremities no change in vision speech or gait. Patient was evaluated by nephrology and is continued on hemodialysis, he was also evaluated by infectious disease and is currently maintained on IV cefepime, he was evaluated by vascular surgery and no recommendation for any intervention at this time. On 03/21/2021 patient alert and oriented 3 currently eating breakfast. Blood culture positive for Morganella morganii. Per infectious disease likely source urine or abdomen. Urine is clean. CT of abdomen has been ordered per infectious disease. Patient remains on IV antibiotics for lower infection of any cellulitis. Current white blood cell 13.17. Social work PT and OT also c onsulted for discharge planning. Per nursing staff patient is very weak will likely require ECF facility upon discharge. On 03/22/2021 patient alert and oriented 3. Patient remains on IV antibiotics. labs Currently pending rate currently 97.6, heart rate 62, blood pressure 121/55 and patient oxygen saturation 96% on room air. Patient denies chest pain or shortness breath. Patient denies nausea vomiting or diarrhea. Patient denies any urinary burning or frequency. On 03/23/2021 patient is still complaining of lower extremity pain otherwise he states he is improving there is no fever or chills no headache or dizziness no chest pain no shortness of breath no cough no nausea or vomiting no chest pain no diarrhea no blood in the stools no burning with urination no frequency or urgency no hematuria On 03/24/2021 patient is confused. Per nursing staff patient will pull at lines an attempt to get out of bed. Patient currently getting hemodialysis. Potassium elevated at 65. Vascular surgery also consulted in regards to his leg. Patient remains on IV antibiotics with blood cell slightly increasing infectious disease services are following. On 03/25/2021 Patient was seen and examined on the medical floor, he is somnolent responsive in no apparent distress, he received IV Dilaudid for pain management, his son is stating that patient was holding his pelvic area with signs of pain, at this time will repeat computed tomography scan of the pelvis, I will add IV Tylenol every 6 hours when necessary and try to decrease use of narcotics. On 03/26/2021 patient remains confused. Nephrology and neurology services are following. Patient to receive hemodialysis today. CT showing no acute changes. On 03/27/2021 patient is more alert today he is confused, he answers 1 or 2 questions by yes or no and then he remains nonverbal there is no apparent distress there is no fever or chills, his temperature is 97.7 pulse 56 respirations 16 blood pressure 149/55 pulse ox 99% on 3 L nasal cannula white blood count of 13.4 hemoglobin 8.7 platelet count 310 On 03/28/2021 patient remains confused. Patient does wake up follow some commands. Patient currently on room air pulse ox 95% blood pressure 151/53 heart rate 77 and temperature 97.7. On 03/29/2021 patient is somnolent confused in no apparent distress he opened his eyes and follows some commands, there is no fever or chills, today I had a third meeting with his, care was discussed in details, I have encouraged his son to change his CODE STATUS to no code, however he declined, he stated that his father would have wanted a full code. Nutrition condition discussed in details patient is not taking any oral food or medications, possibility of NG tube and subsequently a PEG tube was discussed in details. At this time patient's son is not agreeing to any tube feeding, he is requesting IV nutrition, I explained to him that patient is not a candidate for that because he has normal gastrointestinal function, however patient's son is refusing any tube feeding at this time, I will place a consult for nutrition in regard to parenteral nutrition. Objective - Vital Signs Vital signs: Vital Signs Temp 97.6 F 03/29/21 07:06 Pulse 60 03/29/21 07:06 Resp 18 03/29/21 07:06 BP 169/57 03/29/21 07:06 Pulse Ox 96 03/29/21 07:06 Intake & Output 03/28/21 03/29/21 03/29/21 18:59 06:59 18:59 Intake Total 225 Balance 225 Weight 82 kg Intake: IV 225 Cefepime 1 gm In Sodium 25 Chloride 0.9% 50 ml @ 12. 5 mls/hr IVPB Q12H [facility] Rx #:[id number] Dextrose 10% in Water 500 200 ml In Empty Bag 1 bag @ 25 mls/hr IV .Q20H [facility] Rx #:[id number] Other: Voiding Method Diaper Diaper # Voids 2 - Exam In general patient is alert and oriented x 3 in no distress HEENT head normocephalic and atraumatic Neck is supple no JVD no goiter no lymphadenopathy no carotid bruit Chest examination is clear to auscultation no crackles no wheezing Cardiac exam reveals regular heart sounds S1 and S2 no gallops no murmurs Abdomen is soft nontender no organomegaly with normal bowel sounds Extremity exam bilateral lower extremity erythema in the pretibial area right worse than left there are multiple ulcerations on the toes Neurological examination reveals no gross focal deficits - Labs CBC & Chem 7: 03/28/21 06:12 03/28/21 06:12 Labs: Abnormal Lab Results - Last 24 Hours (Table) 03/28/21 03/28/21 03/28/21 Range/Units 06:12 12:17 16:58 Metamyelocytes % 1 H (0-0) % Myelocytes % 1 H (0-0) % Neutrophils # (Manual) 13.75 H (2.00-8.90) X 10*3/uL Lymphocytes # (Manual) 0.44 L (0.90-5.00) X 10*3/uL Eosinophils # (Manual) 0 L (0.04-0.35) X 10*3/uL POC Glucose (mg/dL) 123 H 104 H (75-99) mg/dL 03/28/21 03/29/21 Range/Units 20:21 07:09 Metamyelocytes % (0-0) % Myelocytes % (0-0) % Neutrophils # (Manual) (2.00-8.90) X 10*3/uL Lymphocytes # (Manual) (0.90-5.00) X 10*3/uL Eosinophils # (Manual) (0.04-0.35) X 10*3/uL POC Glucose (mg/dL) 113 H 122 H (75-99) mg/dL Microbiology - Last 24 Hours (Table) 03/27/21 11:39 Blood Culture - Preliminary Blood No Growth after 24 hours 03/26/21 11:00 Blood Culture - Preliminary Blood No Growth after 48 hours Assessment and Plan Plan: Febrile illness with leukocytosis, likely related to lower extremity cellulitis, and possibly infected catheter patient has positive blood culture for gram- negative bacilli and currently he is maintained on IV cefepime, infectious disease following Bacteremia with Morganella morganii. Infectious disease services are following. CT of abdomen negative. 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 At this time patient is admitted to medical floor Nephrology consultation requested for continuation of hemodialysis Infectious disease vascular surgery and cardiology consultation requested Positive bacteremia, Prognosis is guarded due to advanced medical problems with multisystem involvement
[2021-03-29] MEDS: ENOXAPARIN 30 MG/0.3 ML SYRINGE SQ SCH (19:36)
--- NOTE | 2021-03-29 19:48 | PN ---
PROGRESS NOTE DATE OF SERVICE: 03/29/2021 REASON FOR FOLLOWUP: Morganella bacteremia. INTERVAL HISTORY: The patient is afebrile. The patient remains lethargic. He is unable to provide any history. No vomiting, diarrhea or any other changes reported by the nursing staff. PHYSICAL EXAMINATION: Blood pressure 155/69 with a pulse of 70, temperature 97.6. He is 96% on room air. General description is an elderly male lying in bed in no distress. Respiratory system: Unlabored breathing, decreased breath sounds in the base. No wheeze. Heart S1, S2. Regular rate and rhythm. Abdomen soft, no tenderness. Right leg is currently dressed. No drainage on the dressing. LABS: No new labs have been obtained today. He has multiple repeat blood cultures that have been negative. DIAGNOSTIC IMPRESSION AND PLAN: Patient with Morganella bacteremia in this patient who did have extensive workup with no evidence of any persistent bacteremia. Patient seems to have mental status changes, not necessarily on the basis of infection, as the patient currently has no fever and no evidence of any deep infection on the basis of multiple CT scans. Son was at the bedside. His questions and concerns were answered. Continue cefepime. Prognosis remains guarded. MMODL / IJN: [id number] /
[2021-03-29 20:15] LABS: Glucose,Whole Blood 114 mg/dL (75-99)
--- NOTE | 2021-03-29 21:18 | PN ---
PROGRESS NOTE The patient is seen for followup for end-stage renal disease. He is currently seen on dialysis. The patient has not been communicating much. His son is present at bedside. The patient is barely arousable. He has not been eating much as well. PHYSICAL EXAMINATION: On examination today, blood pressure was 169/57, heart rate 60 per minute. He is afebrile. Examination of the heart S1, S2. Examination of the lungs, bilateral breath sounds are heard. Abdomen is soft, nontender. Examination of lower extremities shows no evidence of edema. HAND LAUNDERER exam cannot be assessed. LABS: Done yesterday shows potassium 4.4, serum creatinine 4.1, hemoglobin 9.1, white cell count 14.7. Blood cultures on initial admission showed Morganella morganii. All repeat blood cultures have been negative. ASSESSMENT: 1. End-stage renal disease maintained on hemodialysis on a Monday, Monday, Monday schedule. 2. Gram-negative bacteremia with Morganella morganii, being followed by Infectious Disease. CT of the abdomen was done which was negative. 3. Mental status changes/encephalopathy mostly metabolic, being followed by Neurology. I do not see any significant pain medications on board right now. I do see Ativan however I do not believe patient has received that recently. PLAN: Hemodialysis today. Can use Toradol for pain. Decreased ultrafiltration with dialysis. We may need to add IV fluids as patient has not been eating or drinking much. MMODL / IJN: [id number] /
[2021-03-29] MEDS: LEVOTHYROXINE 88 MCG TAB PO SCH (21:38)
[2021-03-29] MEDS: MULTIVITAMINS, THERA 1 EACH TAB PO SCH (21:38)
[2021-03-30] MEDS: IPRATROPIUM-ALBUTEROL 3 ML NEB INHALATION PRN (07:17)
[2021-03-30] MEDS ORDERED: FUROSEMIDE 10 MG/ML 4 ML VIAL IV STA (07:30)
[2021-03-30] MEDS: FUROSEMIDE 40 MG TAB PO SCH (07:30)
[2021-03-30 08:13] LABS: Glucose,Whole Blood 100 mg/dL (75-99)
[2021-03-30] MEDS: carvediloL 12.5 MG TAB PO SCH ×2 (09:39→15:49)
[2021-03-30] MEDS: allopurinoL 100 MG TAB PO SCH (09:40)
[2021-03-30] MEDS: FERROUS SULFATE 325 MG TAB PO SCH (09:41)
[2021-03-30] MEDS: DOCUSATE 100 MG CAP PO SCH (09:41)
[2021-03-30] MEDS: ESCITALOPRAM 10 MG TAB PO SCH (09:41)
[2021-03-30] MEDS: hydrALAZINE HCL 25 MG TAB PO SCH ×3 (09:42→22:08)
[2021-03-30] MEDS: SODIUM BICARBONATE TAB 650 MG TAB PO SCH ×2 (09:42→22:12)
[2021-03-30] MEDS: polyethylene glycoL 3350 17 GM POWD.PACK PO SCH (09:42)
[2021-03-30 11:22] LABS: HCT 30.5 % (39.6-50.0); HGB 9.3 g/dL (13.0-17.0); MCH 30.5 pg (27.0-32.0); MCHC 30.5 g/dL (32.0-37.0); Mean Platelet Volume 10.6 fL (9.5-12.2); Platelet Count 348 X 10*3/uL (140-440); RBC 3.05 X 10*6/uL (4.40-5.60); RDW 17.2 % (11.5-14.5); WBC 13.86 X 10*3/uL (4.50-10.00)
[2021-03-30] MEDS: CEFEPIME 1 GM in SODIUM CHLORIDE 0.9% 50 ML IVPB SCH (12:03)
[2021-03-30 12:16] LABS: African American GFR (CKD) 13.6 (60.0-200.0); Albumin 3.2 g/dL (3.8-4.9); Albumin/Globulin Ratio 1.45 (1.60-3.17); Anion Gap 20.5 mmol/L (4.00-12.00); BUN/Creat Ratio 10.84 Ratio (12.00-20.00); Blood Urea Nitrogen 47.7 mg/dL (9.0-27.0); Calcium 8.9 mg/dL (8.7-10.3); Carbon Dioxide 19.5 mmol/L (21.6-31.8); Globulin 2.2 g/dL (1.6-3.3); Non-African American GFR(CKD) 11.7 (60.0-200.0); Potassium 4.3 mmol/L (3.5-5.5); Total Bilirubin 0.3 mg/dL (0.30-1.20); Total Protein 5.4 g/dL (6.2-8.2)
[2021-03-30 12:23] LABS: Glucose,Whole Blood 131 mg/dL (75-99)
[2021-03-30 13:02] LABS: Basophils # (M) 0.14 X 10*3/uL (0.00-0.10); Eosinophils # (M) 0.28 X 10*3/uL (0.04-0.35); Lymphocytes # (M) 0.28 X 10*3/uL (0.90-5.00); Monocytes # (M) 0.28 X 10*3/uL (0.20-1.00); Myelocytes % 1 % (0-0); Neutrophils # (M) 12.75 X 10*3/uL (2.00-8.90); Neutrophils % (M) 92 %
[2021-03-30] MEDS ORDERED: LIDOCAINE 1% INJ 10MG/ML (20 ML MDV) ONE (13:57)
[2021-03-30] MEDS ORDERED: LIDOCAINE 1% INJ 10MG/ML (20 ML MDV) SQ ONE (14:06)
--- NOTE | 2021-03-30 15:02 | IR ---
EXAMINATION TYPE: IR cvc insert >=5 years DATE OF EXAM: 03/30/2021 COMPARISON: NONE CLINICAL HISTORY: Altered mental status Needs long-term intravenous access for antibiotics, total par enteral nutrition. PROCEDURE: Hand hygiene obtained with soap and water and alcohol-based hand rub. After informed consent, the skin overlying the right basilic vein was localized with ultrasound and n oted to be compressible and patent. An ultrasound image was obtained and submitted on the patient's chart. The overlying skin was prepped and draped and Lidocaine was used for local anesthesia. A ski n lana was made with a scalpel. Access was gained to the vein under ultrasound guidance with a 21 ga uge needle and a 0.018 inch wire was advanced. Access site was dilated with Peel-Away sheath and cat heter tailored to the appropriate length and advanced such that the distal tip is at the cavoatrial j unction. Spot image was obtained verifying placement. Catheter was fixed to the skin and a sterile dressing was placed following hemostasis. Catheter was aspirated and flushed with saline. Patient w as discharged in stable condition without complication.Maximal barrier technique is utilized. Ultras ound image is documented on the chart. Ultrasound used with sterile technique. Fluoro time and fluoroscopic images submitted to document procedure: 101 intraoperative C-arm images document the procedure, 0.2 minutes fluoroscopy time supplied IMPRESSION: STATUS POST ULTRASOUND AND FLUOROSCOPIC GUIDED PICC LINE PLACEMENT, READY FOR USE. THIS PROCEDURE WAS PERFORMED BY THE UNDERSIGNED.
--- NOTE | 2021-03-30 15:06 | PN ---
PROGRESS NOTE Patient is seen for followup for end-stage renal disease. His mentation has been poor for the last 5 to 6 days now. He did go down to get a PICC line and there are plans to start TPN. He is not receiving significant pain medications at this time. Imaging studies of the brain have been negative x2 for any acute event. On examination today, blood pressure was 162/50, heart rate 64 per minute. Patient is afebrile. EXAMINATION OF THE HEART: S1 and S2. EXAMINATION OF LUNGS: Bilateral breath sounds are heard. Abdomen is soft, non-tender. Examination of lower extremities shows no evidence of edema. BRINE PURIFIER exam shows patient is confused. He is moving all 4 extremities. Labs show sodium 143, potassium 4.3. From today serum creatinine was 4.4, hemoglobin 9.3. ASSESSMENT: 1. End-stage renal disease, maintained on hemodialysis on a MWF schedule. 2. Encephalopathy, etiology unclear. Currently not receiving any significant pain medications. Imaging of the brain has been negative. Appears to be mostly metabolic with previous bacteremia. 3. Volume depletion. Plans for starting TPN. PLAN: Hemodialysis in a.m. Continue with Toradol as needed. Discontinue allopurinol. No ultrafiltration tomorrow with dialysis. MMODL / IJN: [id number] / [facility]
[2021-03-30] MEDS: ENOXAPARIN 30 MG/0.3 ML SYRINGE SQ SCH (16:26)
[2021-03-30] MEDS: 1: PARENTERAL ELECTROLYTES 20 ML, MVI, ADULT NO.4 WITH VIT K 10 ML, TRACE (CONC-1ML/DOSE IV SCH ×4 (16:36)
[2021-03-30 16:40] LABS: Magnesium 2.2 mg/dL (1.5-2.4); Phosphorus 6.8 mg/dL (2.4-5.1)
[2021-03-30] MEDS: KETOROLAC 30 MG/ML 1 ML VIAL IVP PRN (17:16)
[2021-03-30 17:34] LABS: Glucose,Whole Blood 91 mg/dL (75-99)
--- NOTE | 2021-03-30 17:59 | P.PN ---
Subjective Progress Note Date: 03/30/21 Sean Lin, is an 80-year-old male who presented to [facility] emergency room with a chief complaint of weakness and febrile illness He was evaluated in the emergency room vital examination on presentation revealed a temperature of 100.2 pulse 64 respiration 18 blood pressure 158/56 p ulse ox 100% on 2 L nasal cannula Laboratory data revealed a white blood count of 15.6 hemoglobin 12.4 platelet count 323 sodium 136 potassium 4.5 BUN 31 creatinine 2.4 to Testing in the emergency room revealed chest x-ray revealed evidence of cardiomegaly otherwise no active cardiopulmonary disease, EKG revealed ventricular paced rhythm Patient was admitted to medical floor for further evaluation and treatment Past medical history is significant for end-stage renal disease on hemodialysis, chronic systolic congestive heart failure, history of cardiac arrhythmia status post biventricular pacemaker implant, underlying history of COPD, underlying history of paroxysmal atrial fibrillation, underlying history of coronary artery disease, underlying history of peripheral arterial disease On review of systems patient is alert and oriented 3 in no apparent distress he is complaining of fever and some chills, he is also complaining of right lower extremity pain otherwise he denies any complaints there is no headache or dizziness no chest pain no shortness of breath no cough no nausea or vomiting no abdominal pain no diarrhea no blood in the stools no burning with urination no frequency or urgency and no hematuria On 03/19/2021 patient is alert and oriented 3. Patient remains on IV Maxipime for cellulitis. Patient reports he does feel significantly improved. Nephrology services following patient to receive hemodialysis today. Vascular surgery and infectious disease services also consulted. At this time patient denies chest pain or shortness breath. Patient denies nausea vomiting or diarrhea. Patient denies any urinary burning or frequency. On 03/20/2021 Patient was seen and examined on the medical floor, he is alert and oriented x 3 in no distress, he denies any complaints there is no fever or chills no headache or dizziness no chest pain no shortness of breath no palpitation no cough no nausea or vomiting no abdominal pain no diarrhea no blood in the stools no burning with urination no frequency or urgency and no hematuria, there is no weakness or numbness in any of the extremities no change in vision speech or gait. Patient was evaluated by nephrology and is continued on hemodialysis, he was also evaluated by infectious disease and is currently maintained on IV cefepime, he was evaluated by vascular surgery and no recommendation for any intervention at this time. On 03/21/2021 patient alert and oriented 3 currently eating breakfast. Blood culture positive for Morganella morganii. Per infectious disease likely source urine or abdomen. Urine is clean. CT of abdomen has been ordered per infectious disease. Patient remains on IV antibiotics for lower infection of any cellulitis. Current white blood cell 13.17. Social work PT and OT also c onsulted for discharge planning. Per nursing staff patient is very weak will likely require ECF facility upon discharge. On 03/22/2021 patient alert and oriented 3. Patient remains on IV antibiotics. labs Currently pending rate currently 97.6, heart rate 62, blood pressure 121/55 and patient oxygen saturation 96% on room air. Patient denies chest pain or shortness breath. Patient denies nausea vomiting or diarrhea. Patient denies any urinary burning or frequency. On 03/23/2021 patient is still complaining of lower extremity pain otherwise he states he is improving there is no fever or chills no headache or dizziness no chest pain no shortness of breath no cough no nausea or vomiting no chest pain no diarrhea no blood in the stools no burning with urination no frequency or urgency no hematuria On 03/24/2021 patient is confused. Per nursing staff patient will pull at lines an attempt to get out of bed. Patient currently getting hemodialysis. Potassium elevated at 65. Vascular surgery also consulted in regards to his leg. Patient remains on IV antibiotics with blood cell slightly increasing infectious disease services are following. On 03/25/2021 Patient was seen and examined on the medical floor, he is somnolent responsive in no apparent distress, he received IV Dilaudid for pain management, his son is stating that patient was holding his pelvic area with signs of pain, at this time will repeat computed tomography scan of the pelvis, I will add IV Tylenol every 6 hours when necessary and try to decrease use of narcotics. On 03/26/2021 patient remains confused. Nephrology and neurology services are following. Patient to receive hemodialysis today. CT showing no acute changes. On 03/27/2021 patient is more alert today he is confused, he answers 1 or 2 questions by yes or no and then he remains nonverbal there is no apparent distress there is no fever or chills, his temperature is 97.7 pulse 56 respirations 16 blood pressure 149/55 pulse ox 99% on 3 L nasal cannula white blood count of 13.4 hemoglobin 8.7 platelet count 310 On 03/28/2021 patient remains confused. Patient does wake up follow some commands. Patient currently on room air pulse ox 95% blood pressure 151/53 heart rate 77 and temperature 97.7. On 03/29/2021 patient is somnolent confused in no apparent distress he opened his eyes and follows some commands, there is no fever or chills, today I had a third meeting with his, care was discussed in details, I have encouraged his son to change his CODE STATUS to no code, however he declined, he stated that his father would have wanted a full code. Nutrition condition discussed in details patient is not taking any oral food or medications, possibility of NG tube and subsequently a PEG tube was discussed in details. At this time patient's son is not agreeing to any tube feeding, he is requesting IV nutrition, I explained to him that patient is not a candidate for that because he has normal gastrointestinal function, however patient's son is refusing any tube feeding at this time, I will place a consult for nutrition in regard to parenteral nutrition. On 03/30/2021 patient was seen and examined on the medical floor he is more alert today he answers 1 or 2 questions with yes or no and then he remains nonverbal, his vital exam reveals a temperature of 97.8 pulse 60 respiration 20 blood pressure 147/55 pulse ox 99% on room air laboratory data reveals a white blood count of 13.8 hemoglobin 9.3 platelet count 348 BUN 47.7 creatinine 4.4 patient had a PICC line placed today in anticipation for TPN Objective - Vital Signs Vital signs: Vital Signs Temp 97.4 F L 03/30/21 07:09 Pulse 68 03/30/21 07:42 Resp 18 03/30/21 07:09 BP 162/50 03/30/21 07:09 Pulse Ox 97 03/30/21 07:09 Intake & Output 03/29/21 03/30/21 03/30/21 18:59 06:59 18:59 Intake Total 700 Output Total 300 Balance 400 Weight 82 kg 81 kg Intake: Hemodialysis 700 Output: Hemodialysis 300 Other: Voiding Method Diaper # Voids 1 1 0 # Bowel Movements 0 - Exam In general patient is alert and oriented x 3 in no distress HEENT head normocephalic and atraumatic Neck is supple no JVD no goiter no lymphadenopathy no carotid bruit Chest examination is clear to auscultation no crackles no wheezing Cardiac exam reveals regular heart sounds S1 and S2 no gallops no murmurs Abdomen is soft nontender no organomegaly with normal bowel sounds Extremity exam bilateral lower extremity erythema in the pretibial area right worse than left there are multiple ulcerations on the toes Neurological examination reveals no gross focal deficits - Labs CBC & Chem 7: 03/30/21 06:41 03/30/21 06:41 Labs: Abnormal Lab Results - Last 24 Hours (Table) 03/29/21 03/29/21 03/29/21 Range/Units 12:12 17:25 20:13 POC Glucose (mg/dL) 119 H 110 H 114 H (75-99) mg/dL 03/30/21 Range/Units 07:30 POC Glucose (mg/dL) 100 H (75-99) mg/dL Microbiology - Last 24 Hours (Table) 03/27/21 11:39 Blood Culture - Preliminary Blood No Growth after 48 hours 03/26/21 11:00 Blood Culture - Preliminary Blood No Growth after 72 hours Assessment and Plan Plan: Febrile illness with leukocytosis, likely related to lower extremity cellulitis, and possibly infected catheter patient has positive blood culture for gram- negative bacilli and currently he is maintained on IV cefepime, infectious disease following Bacteremia with Morganella morganii. Infectious disease services are following. CT of abdomen negative. 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 At this time patient is admitted to medical floor Nephrology consultation requested for continuation of hemodialysis Infectious disease vascular surgery and cardiology consultation requested Positive bacteremia, Prognosis is guarded due to advanced medical problems with multisystem involve ment
[2021-03-30 20:12] LABS: Glucose,Whole Blood 130 mg/dL (75-99)
--- NOTE | 2021-03-30 21:35 | P.PN ---
Subjective Progress Note Date: 03/30/21 Patient was seen for a follow-up. Patient initially seen a Dr. Ish Deshpande. Please refer to his note for details. Patient is an 80-year-old male, came with altered mental status. CT head showed no acute findings. EEG was negative. Patient has been complaining of hurting all over, he had gangrene of the right foot. Objective - Vital Signs Vital signs: Vital Signs Temp 97.4 F L 03/30/21 07:09 Pulse 68 03/30/21 07:42 Resp 18 03/30/21 07:09 BP 162/50 03/30/21 07:09 Pulse Ox 97 03/30/21 07:09 Intake & Output 03/29/21 03/30/21 03/30/21 18:59 06:59 18:59 Intake Total 700 Output Total 300 Balance 400 Weight 82 kg 81 kg Intake: Hemodialysis 700 Output: Hemodialysis 300 Other: Voiding Method Diaper # Voids 1 1 0 # Bowel Movements 0 - Exam GENERAL: The patient is lying in bed and is in no obvious distress. INTEGUMENTARY: He has erythema of right lower extremity from calf down to his toes with bluish discoloration of most of toes of right foot (1st to 4th toes). It is cold to touch over the right foot. NEUROLOGICAL: Limited because of his condition. Higher mental function: The patient is awake but not verbally responsive. He states he is okay, but otherwise does not follow much commands. Cranial nerves: The pupils are round, equal and reactive to light. Visual snider could not be assessed. Extraocular movement could not be assessed. No facial weakness. Otherwise rest of cranial nerves could not be assessed. Motor: Gait is deferred. The strength is hard to assess because of his cooperation. Has at time tremors of bilateral upper but when slept that resolved. Sensation: Could not asses. Reflexes (right/left): Could not asses. Plantars Is mute bilaterally. WORK-UP: CT of the head: It is reported as findings are similar to prior exam. Age- related changes of atrophy and chronic small vessel ischemic noted. Routine EEG on 03/25/2021: Is abnormal. The back of slowing suggestive of severe encephalopathy likely due to toxic metabolic encephalopathy. There are no focal slowing, epileptiform discharges or seizure on the EEG. TSH: 2.780 Calcium is 9.5 Ammonia level <9 Esqueda Virus is not detected. - Labs CBC & Chem 7: 03/30/21 06:41 03/30/21 06:41 Labs: Abnormal Lab Results - Last 24 Hours (Table) 03/29/21 03/29/21 03/30/21 Range/Units 17:25 20:13 06:41 WBC 13.86 H (4.50-10.00) X 10*3/uL RBC 3.05 L (4.40-5.60) X 10*6/uL Hgb 9.3 L (13.0-17.0) g/dL Hct 30.5 L (39.6-50.0) % MCV 100.0 H (80.0-97.0) fL MCHC 30.5 L (32.0-37.0) g/dL RDW 17.2 H (11.5-14.5) % Absolute Nucleated RBC 0.03 H (0.00-0.00) X 10*3/uL NRBC/100 WBC Diff 0.2 H (0.0-0.0) /100 WBCS Carbon Dioxide (21.6-31.8) mmol/L Anion Gap (4.00-12.00) mmol/L BUN (9.0-27.0) mg/dL Creatinine (0.6-1.5) mg/dL Est GFR (CKD-EPI)AfAm (60.0-200.0) Est GFR (CKD-EPI)NonAf (60.0-200.0) BUN/Creatinine Ratio (12.00-20.00) Ratio POC Glucose (mg/dL) 110 H 114 H (75-99) mg/dL Total Protein (6.2-8.2) g/dL Albumin (3.8-4.9) g/dL Albumin/Globulin Ratio (1.60-3.17) g/dL 03/30/21 03/30/21 03/30/21 Range/Units 06:41 07:30 12:00 WBC (4.50-10.00) X 10*3/uL RBC (4.40-5.60) X 10*6/uL Hgb (13.0-17.0) g/dL Hct (39.6-50.0) % MCV (80.0-97.0) fL MCHC (32.0-37.0) g/dL RDW (11.5-14.5) % Absolute Nucleated RBC (0.00-0.00) X 10*3/uL NRBC/100 WBC Diff (0.0-0.0) /100 WBCS Carbon Dioxide 19.5 L (21.6-31.8) mmol/L Anion Gap 20.50 H (4.00-12.00) mmol/L BUN 47.7 H (9.0-27.0) mg/dL Creatinine 4.4 H (0.6-1.5) mg/dL Est GFR (CKD-EPI)AfAm 13.6 L (60.0-200.0) Est GFR (CKD-EPI)NonAf 11.7 L (60.0-200.0) BUN/Creatinine Ratio 10.84 L (12.00-20.00) Ratio POC Glucose (mg/dL) 100 H 131 H (75-99) mg/dL Total Protein 5.4 L (6.2-8.2) g/dL Albumin 3.2 L (3.8-4.9) g/dL Albumin/Globulin Ratio 1.45 L (1.60-3.17) g/dL Microbiology - Last 24 Hours (Table) 03/27/21 11:39 Blood Culture - Preliminary Blood No Growth after 48 hours 03/26/21 11:00 Blood Culture - Preliminary Blood No Growth after 72 hours Assessment and Plan Assessment: Altered mental status due to multiple factorial: Metabolic encephalopathy (ESRD, hypoglycemia) and septic encephalopathy from underlying bactermia Morganella Bactremia Hypoglycemia (as low as 64) End-stage renal disease and currently on dialysis (history of chronic kidney disease and it appears during this admission he started getting dialysis) Possible right lower extremity ischemia Metabolic acidosis secondary due to chronic kidney disease Mild hyponatremia Mild elevated liver function [id number]. Story of third degree AV block status post pacemaker History of proximal atrial fibrillation on Eliquis History of peripheral vascular disease History of coronary artery disease History of congestive heart failure Plan: B12 and folate level >20.. Infection disease team is on board Nephrology team is on board Dr. Henriquez is on board for peripheral artery disease. Please avoid any hypoglycemia event. Will defer pain management to the primary team. We'll defer the rest of the medical management to the primary team Repeat CT of the head is reported as degenerative and nonspecific white matter most typical remote ischemia. No acute hemorrhage or mass effect. Neurology will sign off. Please reconsult neurology if any other concerns.
[2021-03-30] MEDS: LEVOTHYROXINE 88 MCG TAB PO SCH (22:07)
[2021-03-30] MEDS: MULTIVITAMINS, THERA 1 EACH TAB PO SCH (22:07)
--- NOTE | 2021-03-30 22:10 | XR ---
EXAMINATION TYPE: XR chest 1V portable DATE OF EXAM: 03/30/2021 COMPARISON: 03/26/2021 HISTORY: Pneumonia TECHNIQUE: Single view FINDINGS: Heart is enlarged. There is some pulmonary vascular congestion. There is blunting of the co stophrenic angles. There is left axillary pacemaker. IMPRESSION: Congestive heart failure with pleural effusions. Pulmonary congestion increased slightly compared to recent exam.
--- NOTE | 2021-03-30 22:27 | PN ---
PROGRESS NOTE DATE OF SERVICE: 03/30/2021 REASON FOR FOLLOWUP: Morganella bacteremia. INTERVAL HISTORY: The patient is afebrile. The patient is slightly more today. Did answer some simple questions. No nausea, vomiting. Denies any chest pain or cough. No diarrhea has been reported. PHYSICAL EXAMINATION: Blood pressure 155/52 with a pulse of 60, temperature 98.5. He is 96% on 4 L nasal cannula. General description is an elderly male lying in bed in no distress. Respiratory system: Unlabored breathing, clear to auscultation anteriorly. Heart S1, S2. Regular rate and rhythm. Abdomen soft, no tenderness. Right leg is currently dressed. No obvious drainage on the dressing. LABS: Hemoglobin 9.3, white count 13.86, creatinine is 4.4. Blood culture repeat has been negative. DIAGNOSTIC IMPRESSION AND PLAN: Patient with Morganella bacteremia in this patient who did have multiple repeat negative cultures. The patient also had multiple CT scans of abdomen and pelvis that have been negative. The patient is covered with cefepime with mental status changes, possibly metabolic. Neurology is on the case as well as Nephrology. Continue with supportive care. MMODL / IJN: [id number] /
[2021-03-31] MEDS: CEFEPIME 1 GM in SODIUM CHLORIDE 0.9% 50 ML IVPB SCH ×2 (00:57→11:01)
[2021-03-31 07:37] LABS: % Iron Saturation 31.22 (15.00-50.00)
[2021-03-31 07:58] LABS: Glucose,Whole Blood 114 mg/dL (75-99)
[2021-03-31] MEDS: carvediloL 12.5 MG TAB PO SCH ×2 (08:07→18:12)
[2021-03-31] MEDS: ESCITALOPRAM 10 MG TAB PO SCH (08:08)
[2021-03-31] MEDS: hydrALAZINE HCL 25 MG TAB PO SCH ×3 (08:10→20:01)
[2021-03-31] MEDS: SODIUM BICARBONATE TAB 650 MG TAB PO SCH ×2 (08:15→20:00)
[2021-03-31] MEDS: FERROUS SULFATE 325 MG TAB PO SCH (08:15)
[2021-03-31] MEDS: polyethylene glycoL 3350 17 GM POWD.PACK PO SCH (08:15)
[2021-03-31] MEDS: DOCUSATE 100 MG CAP PO SCH (08:16)
[2021-03-31 08:21] LABS: Anisocytosis Slight; Basophils % (A) 0 %; Eosinophils # (A) 0.3 k/uL (0-0.7); Eosinophils % (A) 2 %; HCT 31.9 % (39.0-53.0); HGB 10.1 gm/dL (13.0-17.5); Hypochromasia Slight; Lymphocytes # (A) 0.5 k/uL (1.0-4.8); Lymphocytes % (A) 4 %; MCH 31.9 pg (25.0-35.0); MCHC 31.7 g/dL (31.0-37.0); MCV 100.6 fL (80.0-100.0); Macrocytosis Slight; Mean Platelet Volume 8.5; Monocytes # (A) 0.7 k/uL (0-1.0); Monocytes % (A) 5 %; Neutrophils # (A) 11.6 k/uL (1.3-7.7); Neutrophils % (A) 88 %; Platelet Count 378 k/uL (150-450); RBC 3.17 m/uL (4.30-5.90); RDW 16.5 % (11.5-15.5); WBC 13.3 k/uL (3.8-10.6)
[2021-03-31 08:38] LABS: ALT 25 U/L (4-49); AST 24 U/L (17-59); African American GFR (CKD) 11 (>60 ml/min/1.73 sqM); Albumin 2.9 g/dL (3.5-5.0); Alkaline Phosphatase 81 U/L (38-126); Anion Gap 13 mmol/L; Blood Urea Nitrogen 58 mg/dL (9-20); Carbon Dioxide 23 mmol/L (22-30); Chloride 104 mmol/L (98-107); Globulin 2.8 g/dL; Glucose 103 mg/dL (74-99); Magnesium 2.2 mg/dL (1.6-2.3); Non-African American GFR(CKD) 10 (>60 ml/min/1.73 sqM); Phosphorus 6.4 mg/dL (2.5-4.5); Sodium 140 mmol/L (137-145); Total Bilirubin 0.7 mg/dL (0.2-1.3); Total Protein 5.7 g/dL (6.3-8.2)
[2021-03-31 08:42] LABS: Ionized Calcium 4.6 mg/dL (4.5-5.3)
[2021-03-31] MEDS ORDERED: FAT EMULSION 20% 250 ML IV SCH (09:00)
[2021-03-31] MEDS: ENOXAPARIN 30 MG/0.3 ML SYRINGE SQ SCH (10:36)
--- NOTE | 2021-03-31 11:58 | P.PN ---
Subjective Progress Note Date: 03/31/21 Sean Lin, is an 80-year-old male who presented to [facility] emergency room with a chief complaint of weakness and febrile illness He was evaluated in the emergency room vital examination on presentation revealed a temperature of 100.2 pulse 64 respiration 18 blood pressure 158/56 p ulse ox 100% on 2 L nasal cannula Laboratory data revealed a white blood count of 15.6 hemoglobin 12.4 platelet count 323 sodium 136 potassium 4.5 BUN 31 creatinine 2.4 to Testing in the emergency room revealed chest x-ray revealed evidence of cardiomegaly otherwise no active cardiopulmonary disease, EKG revealed ventricular paced rhythm Patient was admitted to medical floor for further evaluation and treatment Past medical history is significant for end-stage renal disease on hemodialysis, chronic systolic congestive heart failure, history of cardiac arrhythmia status post biventricular pacemaker implant, underlying history of COPD, underlying history of paroxysmal atrial fibrillation, underlying history of coronary artery disease, underlying history of peripheral arterial disease On review of systems patient is alert and oriented 3 in no apparent distress he is complaining of fever and some chills, he is also complaining of right lower extremity pain otherwise he denies any complaints there is no headache or dizziness no chest pain no shortness of breath no cough no nausea or vomiting no abdominal pain no diarrhea no blood in the stools no burning with urination no frequency or urgency and no hematuria On 03/19/2021 patient is alert and oriented 3. Patient remains on IV Maxipime for cellulitis. Patient reports he does feel significantly improved. Nephrology services following patient to receive hemodialysis today. Vascular surgery and infectious disease services also consulted. At this time patient denies chest pain or shortness breath. Patient denies nausea vomiting or diarrhea. Patient denies any urinary burning or frequency. On 03/20/2021 Patient was seen and examined on the medical floor, he is alert and oriented x 3 in no distress, he denies any complaints there is no fever or chills no headache or dizziness no chest pain no shortness of breath no palpitation no cough no nausea or vomiting no abdominal pain no diarrhea no blood in the stools no burning with urination no frequency or urgency and no hematuria, there is no weakness or numbness in any of the extremities no change in vision speech or gait. Patient was evaluated by nephrology and is continued on hemodialysis, he was also evaluated by infectious disease and is currently maintained on IV cefepime, he was evaluated by vascular surgery and no recommendation for any intervention at this time. On 03/21/2021 patient alert and oriented 3 currently eating breakfast. Blood culture positive for Morganella morganii. Per infectious disease likely source urine or abdomen. Urine is clean. CT of abdomen has been ordered per infectious disease. Patient remains on IV antibiotics for lower infection of any cellulitis. Current white blood cell 13.17. Social work PT and OT also c onsulted for discharge planning. Per nursing staff patient is very weak will likely require ECF facility upon discharge. On 03/22/2021 patient alert and oriented 3. Patient remains on IV antibiotics. labs Currently pending rate currently 97.6, heart rate 62, blood pressure 121/55 and patient oxygen saturation 96% on room air. Patient denies chest pain or shortness breath. Patient denies nausea vomiting or diarrhea. Patient denies any urinary burning or frequency. On 03/23/2021 patient is still complaining of lower extremity pain otherwise he states he is improving there is no fever or chills no headache or dizziness no chest pain no shortness of breath no cough no nausea or vomiting no chest pain no diarrhea no blood in the stools no burning with urination no frequency or urgency no hematuria On 03/24/2021 patient is confused. Per nursing staff patient will pull at lines an attempt to get out of bed. Patient currently getting hemodialysis. Potassium elevated at 65. Vascular surgery also consulted in regards to his leg. Patient remains on IV antibiotics with blood cell slightly increasing infectious disease services are following. On 03/25/2021 Patient was seen and examined on the medical floor, he is somnolent responsive in no apparent distress, he received IV Dilaudid for pain management, his son is stating that patient was holding his pelvic area with signs of pain, at this time will repeat computed tomography scan of the pelvis, I will add IV Tylenol every 6 hours when necessary and try to decrease use of narcotics. On 03/26/2021 patient remains confused. Nephrology and neurology services are following. Patient to receive hemodialysis today. CT showing no acute changes. On 03/27/2021 patient is more alert today he is confused, he answers 1 or 2 questions by yes or no and then he remains nonverbal there is no apparent distress there is no fever or chills, his temperature is 97.7 pulse 56 respirations 16 blood pressure 149/55 pulse ox 99% on 3 L nasal cannula white blood count of 13.4 hemoglobin 8.7 platelet count 310 On 03/28/2021 patient remains confused. Patient does wake up follow some commands. Patient currently on room air pulse ox 95% blood pressure 151/53 heart rate 77 and temperature 97.7. On 03/29/2021 patient is somnolent confused in no apparent distress he opened his eyes and follows some commands, there is no fever or chills, today I had a third meeting with his, care was discussed in details, I have encouraged his son to change his CODE STATUS to no code, however he declined, he stated that his father would have wanted a full code. Nutrition condition discussed in details patient is not taking any oral food or medications, possibility of NG tube and subsequently a PEG tube was discussed in details. At this time patient's son is not agreeing to any tube feeding, he is requesting IV nutrition, I explained to him that patient is not a candidate for that because he has normal gastrointestinal function, however patient's son is refusing any tube feeding at this time, I will place a consult for nutrition in regard to parenteral nutrition. On 03/30/2021 patient was seen and examined on the medical floor he is more alert today he answers 1 or 2 questions with yes or no and then he remains nonverbal, his vital exam reveals a temperature of 97.8 pulse 60 respiration 20 blood pressure 147/55 pulse ox 99% on room air laboratory data reveals a white blood count of 13.8 hemoglobin 9.3 platelet count 348 BUN 47.7 creatinine 4.4 patient had a PICC line placed today in anticipation for TPN On 03/31/2021 patient more alert today does wake up and follow some commands. Patient has been started on TPN through PICC line. Per nursing staff patient is able to take his pills will start patient on clear liquid diet and resume home dose of eliquis. Patient currently receiving hemodialysis. Temp 98, heart rate 60, blood pressure 141/50 pulse ox 99% on 4 L. Objective - Vital Signs Vital signs: Vital Signs Temp 98 F 03/31/21 07:18 Pulse 60 03/31/21 07:18 Resp 18 03/31/21 07:18 BP 141/50 03/31/21 07:18 Pulse Ox 99 03/31/21 07:18 Intake & Output 03/30/21 03/31/21 03/31/21 18:59 06:59 18:59 Output Total 0 Balance 0 Weight 84.5 kg 84.5 kg Output: Urine 0 Other: Voiding Method Diaper Diaper # Voids 1 1 # Bowel Movements 0 - Exam In general patient is alert and oriented x 3 in no distress HEENT head normocephalic and atraumatic Neck is supple no JVD no goiter no lymphadenopathy no carotid bruit Chest examination is clear to auscultation no crackles no wheezing Cardiac exam reveals regular heart sounds S1 and S2 no gallops no murmurs Abdomen is soft nontender no organomegaly with normal bowel sounds Extremity exam bilateral lower extremity erythema in the pretibial area right worse than left there are multiple ulcerations on the toes Neurological examination reveals no gross focal deficits - Labs CBC & Chem 7: 03/31/21 07:00 03/31/21 07:00 Labs: Abnormal Lab Results - Last 24 Hours (Table) 03/30/21 03/30/21 03/30/21 Range/Units 06:41 06:41 06:41 WBC (3.8-10.6) k/uL RBC (4.30-5.90) m/uL Hgb (13.0-17.5) gm/dL Hct (39.0-53.0) % MCV (80.0-100.0) fL RDW (11.5-15.5) % Myelocytes % 1 H (0-0) % Neutrophils # (1.3-7.7) k/uL Neutrophils # (Manual) 12.75 H (2.00-8.90) X 10*3/uL Lymphocytes # (1.0-4.8) k/uL Lymphocytes # (Manual) 0.28 L (0.90-5.00) X 10*3/uL Basophils # (Manual) 0.14 H (0.00-0.10) X 10*3/uL Carbon Dioxide 19.5 L (21.6-31.8) mmol/L Anion Gap 20.50 H (4.00-12.00) mmol/L BUN 47.7 H (9.0-27.0) mg/dL Creatinine 4.4 H (0.6-1.5) mg/dL Est GFR (CKD-EPI)AfAm 13.6 L (60.0-200.0) Est GFR (CKD-EPI)NonAf 11.7 L (60.0-200.0) BUN/Creatinine Ratio 10.84 L (12.00-20.00) Ratio Glucose (74-99) mg/dL POC Glucose (mg/dL) (75-99) mg/dL Phosphorus 6.8 H (2.4-5.1) mg/dL TIBC (228-460) ug/dL Transferrin (204.0-354.0) mg/dL Total Protein 5.4 L (6.2-8.2) g/dL Albumin 3.2 L (3.8-4.9) g/dL Albumin/Globulin Ratio 1.45 L (1.60-3.17) g/dL 03/30/21 03/30/21 03/30/21 Range/Units 06:41 12:00 20:11 WBC (3.8-10.6) k/uL RBC (4.30-5.90) m/uL Hgb (13.0-17.5) gm/dL Hct (39.0-53.0) % MCV (80.0-100.0) fL RDW (11.5-15.5) % Myelocytes % (0-0) % Neutrophils # (1.3-7.7) k/uL Neutrophils # (Manual) (2.00-8.90) X 10*3/uL Lymphocytes # (1.0-4.8) k/uL Lymphocytes # (Manual) (0.90-5.00) X 10*3/uL Basophils # (Manual) (0.00-0.10) X 10*3/uL Carbon Dioxide (21.6-31.8) mmol/L Anion Gap (4.00-12.00) mmol/L BUN (9.0-27.0) mg/dL Creatinine (0.6-1.5) mg/dL Est GFR (CKD-EPI)AfAm (60.0-200.0) Est GFR (CKD-EPI)NonAf (60.0-200.0) BUN/Creatinine Ratio (12.00-20.00) Ratio Glucose (74-99) mg/dL POC Glucose (mg/dL) 131 H 130 H (75-99) mg/dL Phosphorus (2.4-5.1) mg/dL TIBC 216 L (228-460) ug/dL Transferrin 154.0 L (204.0-354.0) mg/dL Total Protein (6.2-8.2) g/dL Albumin (3.8-4.9) g/dL Albumin/Globulin Ratio (1.60-3.17) g/dL 03/31/21 03/31/21 03/31/21 Range/Units 07:00 07:00 07:56 WBC 13.3 H (3.8-10.6) k/uL RBC 3.17 L (4.30-5.90) m/uL Hgb 10.1 L (13.0-17.5) gm/dL Hct 31.9 L (39.0-53.0) % MCV 100.6 H (80.0-100.0) fL RDW 16.5 H (11.5-15.5) % Myelocytes % (0-0) % Neutrophils # 11.6 H (1.3-7.7) k/uL Neutrophils # (Manual) (2.00-8.90) X 10*3/uL Lymphocytes # 0.5 L (1.0-4.8) k/uL Lymphocytes # (Manual) (0.90-5.00) X 10*3/uL Basophils # (Manual) (0.00-0.10) X 10*3/uL Carbon Dioxide (21.6-31.8) mmol/L Anion Gap (4.00-12.00) mmol/L BUN 58 H (9.0-27.0) mg/dL Creatinine 5.23 H (0.6-1.5) mg/dL Est GFR (CKD-EPI)AfAm (60.0-200.0) Est GFR (CKD-EPI)NonAf (60.0-200.0) BUN/Creatinine Ratio (12.00-20.00) Ratio Glucose 103 H (74-99) mg/dL POC Glucose (mg/dL) 114 H (75-99) mg/dL Phosphorus 6.4 H (2.4-5.1) mg/dL TIBC (228-460) ug/dL Transferrin (204.0-354.0) mg/dL Total Protein 5.7 L (6.2-8.2) g/dL Albumin 2.9 L (3.8-4.9) g/dL Albumin/Globulin Ratio (1.60-3.17) g/dL Microbiology - Last 24 Hours (Table) 03/27/21 11:39 Blood Culture - Preliminary Blood No Growth after 72 hours 03/26/21 11:00 Blood Culture - Preliminary Blood No Growth after 96 hours Assessment and Plan Plan: Febrile illness with leukocytosis, likely related to lower extremity cellulitis, and possibly infected catheter patient has positive blood culture for gram- negative bacilli and currently he is maintained on IV cefepime, infectious disease following Bacteremia with Morganella morganii. Infectious disease services are following. CT of abdomen negative. 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 Neurology services have signed off At this time patient is admitted to medical floor Nephrology, neurology, Infectious disease vascular surgery and cardiology consultated PICC line in place with TPN Positive bacteremia, Prognosis is guarded due to advanced medical problems with multisystem involv ement
[2021-03-31 12:25] LABS: Glucose,Whole Blood 133 mg/dL (75-99)
[2021-03-31] MEDS: KETOROLAC 30 MG/ML 1 ML VIAL IVP PRN (15:04)
[2021-03-31] MEDS: IPRATROPIUM-ALBUTEROL 3 ML NEB INHALATION PRN (16:48)
[2021-03-31 17:09] LABS: Glucose,Whole Blood 148 mg/dL (75-99)
--- NOTE | 2021-03-31 18:07 | PN ---
PROGRESS NOTE Patient is seen on hemodialysis. He is tolerating his treatment well. We are not removing any fluid. Blood pressure today this morning was 141/50, heart rate 60 per minute. Patient is afebrile. Examination of the heart S1, S2. Examination of the lungs, bilateral breath sounds are heard. Abdomen is soft, nontender. Examination of lower extremities shows no evidence of edema. Patient remains confused. He is awake, but does not communicate. LAB: From today show hemoglobin 10.1, sodium 140, potassium 4.0. ASSESSMENT: 1. End-stage renal disease, on hemodialysis on a Monday, Monday, Monday schedule. 2. Gram-negative bacteremia with initial blood culture growing Morganella morganii. Repeat blood cultures all negative. 3. Encephalopathy, most likely related to underlying infection, possibly medications. The brain imaging x2 has been negative. The patient has been started on TPN. His pain is controlled. He is maintained on Toradol. 4. Metabolic acidosis maintained on oral sodium bicarb. 5. Anemia of chronic disease. PLAN: No ultrafiltration today with dialysis. Continue TPN. Chest x-ray from yesterday showed some pulmonary vascular congestion. If the patient develops worsening respiratory status, we can plan for a short treatment tomorrow. Otherwise, at this point, he appears to be fairly comfortable. MMODL / IJN: [id number] /
[2021-03-31] MEDS: MULTIVITAMINS, THERA 1 EACH TAB PO SCH (20:01)
[2021-03-31] MEDS: APIXABAN 2.5 MG TABLET PO SCH (20:01)
[2021-03-31] MEDS: LEVOTHYROXINE 88 MCG TAB PO SCH (20:01)
[2021-03-31 20:26] LABS: Glucose,Whole Blood 135 mg/dL (75-99)
[2021-04-01] MEDS: CEFEPIME 1 GM in SODIUM CHLORIDE 0.9% 50 ML IVPB SCH ×2 (01:18→11:46)
[2021-04-01 06:35] LABS: ALT 22 U/L (4-49); AST 24 U/L (17-59); African American GFR (CKD) 15 (>60 ml/min/1.73 sqM); Albumin 2.8 g/dL (3.5-5.0); Alkaline Phosphatase 71 U/L (38-126); Anion Gap 8 mmol/L; Blood Urea Nitrogen 43 mg/dL (9-20); Calcium 8.6 mg/dL (8.4-10.2); Carbon Dioxide 26 mmol/L (22-30); Chloride 104 mmol/L (98-107); Globulin 2.7 g/dL; Glucose 136 mg/dL (74-99); Magnesium 2.1 mg/dL (1.6-2.3); Non-African American GFR(CKD) 13 (>60 ml/min/1.73 sqM); Phosphorus 4.3 mg/dL (2.5-4.5); Potassium 3.6 mmol/L (3.5-5.1); Sodium 138 mmol/L (137-145); Total Bilirubin 0.6 mg/dL (0.2-1.3); Total Protein 5.5 g/dL (6.3-8.2)
[2021-04-01] MEDS: 1: PARENTERAL ELECTROLYTES 20 ML, MVI, ADULT NO.4 WITH VIT K 10 ML, TRACE (CONC-1ML/DOSE IV SCH ×8 (08:19→08:22)
[2021-04-01 08:20] LABS: Glucose,Whole Blood 135 mg/dL (75-99)
[2021-04-01] MEDS: carvediloL 12.5 MG TAB PO SCH ×2 (08:20→18:15)
[2021-04-01] MEDS: APIXABAN 2.5 MG TABLET PO SCH ×2 (08:20→20:45)
[2021-04-01] MEDS: FERROUS SULFATE 325 MG TAB PO SCH (08:20)
[2021-04-01] MEDS: hydrALAZINE HCL 25 MG TAB PO SCH ×3 (08:20→20:45)
[2021-04-01] MEDS: SODIUM BICARBONATE TAB 650 MG TAB PO SCH (08:20)
[2021-04-01] MEDS: DOCUSATE 100 MG CAP PO SCH (08:20)
[2021-04-01] MEDS: polyethylene glycoL 3350 17 GM POWD.PACK PO SCH (08:20)
[2021-04-01] MEDS: ESCITALOPRAM 10 MG TAB PO SCH (08:22)
[2021-04-01 09:14] LABS: Basophils # (A) 0.05 X 10*3/uL (0.00-0.10); Basophils % (A) 0.4 %; Eosinophils # (A) 0.36 X 10*3/uL (0.04-0.35); HCT 29.2 % (39.6-50.0); Lymphocytes # (A) 0.37 X 10*3/uL (0.90-5.00); Lymphocytes % (A) 3.1 %; MCH 30.9 pg (27.0-32.0); MCHC 30.8 g/dL (32.0-37.0); MCV 100.3 fL (80.0-97.0); Mean Platelet Volume 10.7 fL (9.5-12.2); Monocytes # (A) 1.29 X 10*3/uL (0.20-1.00); Monocytes % (A) 10.6 %; Neutrophils # (A) 9.56 X 10*3/uL (1.80-7.70); Neutrophils % (A) 78.9 %; Platelet Count 325 X 10*3/uL (140-440); RBC 2.91 X 10*6/uL (4.40-5.60); RDW 17.2 % (11.5-14.5); WBC 12.12 X 10*3/uL (4.50-10.00)
--- NOTE | 2021-04-01 10:08 | PN ---
PROGRESS NOTE DATE OF SERVICE: 03/31/2021 REASON FOR FOLLOWUP: Morganella bacteremia. INTERVAL HISTORY: The patient is afebrile. The patient seems to be more awake and alert today. He is breathing comfortably; however, he did not express any specific symptoms. No vomiting, diarrhea or other changes reported by the nursing staff. PHYSICAL EXAMINATION: Blood pressure 111/87, pulse of 62, temperature 98. He is 97% on room air. General description is an elderly male lying in bed in no distress. Respiratory system: Unlabored breathing, decreased breath sounds at the base. No wheeze. Heart S1, S2. Regular rate and rhythm. Abdomen soft, no tenderness. LABS: Hemoglobin is 10.1, white count 13.3, creatinine 5.23. Repeat blood culture has been negative. DIAGNOSTIC IMPRESSION AND PLAN: Patient with Morganella bacteremia in this patient who has been on adequate antibiotic therapy, currently on cefepime. Blood cultures have been negative. Patient did have a problem with mentation and seems to have shown some clinical improvement, possibly metabolic. Continue with supportive care. MMODL / IJN: [id number] /
[2021-04-01 13:08] LABS: Glucose,Whole Blood 134 mg/dL (75-99)
[2021-04-01] MEDS ORDERED: VANCOMYCIN IV PER PHARMACY 1 EACH MISC MISCELLANE PRN (13:33)
[2021-04-01] MEDS ORDERED: VANCOMYCIN 1,500 MG in SODIUM CHLORIDE 0.9% 250 ML IVPB ONE (14:15)
[2021-04-01] MEDS: IPRATROPIUM-ALBUTEROL 3 ML NEB INHALATION PRN (16:30)
--- NOTE | 2021-04-01 17:15 | PN ---
PROGRESS NOTE Patient is seen for followup for end-stage renal disease. This morning patient is awake. He did open his eyes to name but is not communicating. Apparently he did say hello to the nursing staff this morning. Patient was started on TPN yesterday. On examination today, blood pressure this morning was 161/56, heart rate of 60 per minute. He is afebrile. EXAMINATION OF THE HEART: S1 and S2. EXAMINATION OF LUNGS: Decreased breath sounds at the bases. Abdomen is soft, non-tender. Examination of lower extremities shows trace edema bilaterally. INCINERATOR ATTENDANT EXAM: Grossly intact. Labs show sodium of 138, potassium 3.6, BUN 43, serum creatinine 4.0, hemoglobin 9.0. ASSESSMENT: 1. End-stage renal disease, on hemodialysis on a Monday, Monday, Monday schedule. 2. Encephalopathy, somewhat improved with initiation of TPN. 3. Gram-negative bacteremia with blood cultures growing Morganella morganii, maintained on antibiotics, being followed by ID. Repeat blood cultures are all negative. CT of the abdomen was unremarkable. 4. Anemia of chronic disease. 5. Metabolic acidosis. Patient was maintained on oral sodium bicarb, which he could not take due to severe encephalopathy. We will adjust the bicarb bath on the machine. His CO2 is appropriate. I will discontinue the sodium bicarb for now. PLAN: Discontinue sodium bicarb. Hemodialysis in a.m. with no significant ultrafiltration. We will try for about 500 mL. Continue with the TPN. MMODL / IJN: [id number] /
[2021-04-01 17:28] LABS: Glucose,Whole Blood 128 mg/dL (75-99)
--- NOTE | 2021-04-01 19:04 | P.PN ---
Subjective Progress Note Date: 04/01/21 Sean Lin, is an 80-year-old male who presented to [facility] emergency room with a chief complaint of weakness and febrile illness He was evaluated in the emergency room vital examination on presentation revealed a temperature of 100.2 pulse 64 respiration 18 blood pressure 158/56 p ulse ox 100% on 2 L nasal cannula Laboratory data revealed a white blood count of 15.6 hemoglobin 12.4 platelet count 323 sodium 136 potassium 4.5 BUN 31 creatinine 2.4 to Testing in the emergency room revealed chest x-ray revealed evidence of cardiomegaly otherwise no active cardiopulmonary disease, EKG revealed ventricular paced rhythm Patient was admitted to medical floor for further evaluation and treatment Past medical history is significant for end-stage renal disease on hemodialysis, chronic systolic congestive heart failure, history of cardiac arrhythmia status post biventricular pacemaker implant, underlying history of COPD, underlying history of paroxysmal atrial fibrillation, underlying history of coronary artery disease, underlying history of peripheral arterial disease On review of systems patient is alert and oriented 3 in no apparent distress he is complaining of fever and some chills, he is also complaining of right lower extremity pain otherwise he denies any complaints there is no headache or dizziness no chest pain no shortness of breath no cough no nausea or vomiting no abdominal pain no diarrhea no blood in the stools no burning with urination no frequency or urgency and no hematuria On 03/19/2021 patient is alert and oriented 3. Patient remains on IV Maxipime for cellulitis. Patient reports he does feel significantly improved. Nephrology services following patient to receive hemodialysis today. Vascular surgery and infectious disease services also consulted. At this time patient denies chest pain or shortness breath. Patient denies nausea vomiting or diarrhea. Patient denies any urinary burning or frequency. On 03/20/2021 Patient was seen and examined on the medical floor, he is alert and oriented x 3 in no distress, he denies any complaints there is no fever or chills no headache or dizziness no chest pain no shortness of breath no palpitation no cough no nausea or vomiting no abdominal pain no diarrhea no blood in the stools no burning with urination no frequency or urgency and no hematuria, there is no weakness or numbness in any of the extremities no change in vision speech or gait. Patient was evaluated by nephrology and is continued on hemodialysis, he was also evaluated by infectious disease and is currently maintained on IV cefepime, he was evaluated by vascular surgery and no recommendation for any intervention at this time. On 03/21/2021 patient alert and oriented 3 currently eating breakfast. Blood culture positive for Morganella morganii. Per infectious disease likely source urine or abdomen. Urine is clean. CT of abdomen has been ordered per infectious disease. Patient remains on IV antibiotics for lower infection of any cellulitis. Current white blood cell 13.17. Social work PT and OT also c onsulted for discharge planning. Per nursing staff patient is very weak will likely require ECF facility upon discharge. On 03/22/2021 patient alert and oriented 3. Patient remains on IV antibiotics. labs Currently pending rate currently 97.6, heart rate 62, blood pressure 121/55 and patient oxygen saturation 96% on room air. Patient denies chest pain or shortness breath. Patient denies nausea vomiting or diarrhea. Patient denies any urinary burning or frequency. On 03/23/2021 patient is still complaining of lower extremity pain otherwise he states he is improving there is no fever or chills no headache or dizziness no chest pain no shortness of breath no cough no nausea or vomiting no chest pain no diarrhea no blood in the stools no burning with urination no frequency or urgency no hematuria On 03/24/2021 patient is confused. Per nursing staff patient will pull at lines an attempt to get out of bed. Patient currently getting hemodialysis. Potassium elevated at 65. Vascular surgery also consulted in regards to his leg. Patient remains on IV antibiotics with blood cell slightly increasing infectious disease services are following. On 03/25/2021 Patient was seen and examined on the medical floor, he is somnolent responsive in no apparent distress, he received IV Dilaudid for pain management, his son is stating that patient was holding his pelvic area with signs of pain, at this time will repeat computed tomography scan of the pelvis, I will add IV Tylenol every 6 hours when necessary and try to decrease use of narcotics. On 03/26/2021 patient remains confused. Nephrology and neurology services are following. Patient to receive hemodialysis today. CT showing no acute changes. On 03/27/2021 patient is more alert today he is confused, he answers 1 or 2 questions by yes or no and then he remains nonverbal there is no apparent distress there is no fever or chills, his temperature is 97.7 pulse 56 respirations 16 blood pressure 149/55 pulse ox 99% on 3 L nasal cannula white blood count of 13.4 hemoglobin 8.7 platelet count 310 On 03/28/2021 patient remains confused. Patient does wake up follow some commands. Patient currently on room air pulse ox 95% blood pressure 151/53 heart rate 77 and temperature 97.7. On 03/29/2021 patient is somnolent confused in no apparent distress he opened his eyes and follows some commands, there is no fever or chills, today I had a third meeting with his, care was discussed in details, I have encouraged his son to change his CODE STATUS to no code, however he declined, he stated that his father would have wanted a full code. Nutrition condition discussed in details patient is not taking any oral food or medications, possibility of NG tube and subsequently a PEG tube was discussed in details. At this time patient's son is not agreeing to any tube feeding, he is requesting IV nutrition, I explained to him that patient is not a candidate for that because he has normal gastrointestinal function, however patient's son is refusing any tube feeding at this time, I will place a consult for nutrition in regard to parenteral nutrition. On 03/30/2021 patient was seen and examined on the medical floor he is more alert today he answers 1 or 2 questions with yes or no and then he remains nonverbal, his vital exam reveals a temperature of 97.8 pulse 60 respiration 20 blood pressure 147/55 pulse ox 99% on room air laboratory data reveals a white blood count of 13.8 hemoglobin 9.3 platelet count 348 BUN 47.7 creatinine 4.4 patient had a PICC line placed today in anticipation for TPN On 03/31/2021 patient more alert today does wake up and follow some commands. Patient has been started on TPN through PICC line. Per nursing staff patient is able to take his pills will start patient on clear liquid diet and resume home dose of eliquis. Patient currently receiving hemodialysis. Temp 98, heart rate 60, blood pressure 141/50 pulse ox 99% on 4 L. On 04/01/2021 patient is doing better he is more alert and responsive today there is no fever or chills no headache or dizziness no chest pain no shortness of breath no cough no nausea or vomiting he is taking some oral intake he remains on TPN via PICC line, his vital exam reveals a temperature of 97.4 pulse 60 respiration 20 blood pressure 126/53 pulse ox 98% on 4 L nasal cannula laboratory data reveals a white blood count of 12.12 hemoglobin 9.0 platelet count 325 BUN 43 creatinine 4.0 patient is maintained on hemodialysis Objective - Vital Signs Vital signs: Vital Signs Temp 97.4 F L 04/01/21 07:19 Pulse 62 04/01/21 07:19 Resp 18 04/01/21 08:00 BP 161/56 04/01/21 07:19 Pulse Ox 90 L 04/01/21 07:19 Intake & Output 03/31/21 04/01/21 04/01/21 18:59 06:59 18:59 Intake Total 0 1031 Output Total 0 Balance 0 1031 Weight 84.5 kg 84 kg Intake: Intake, IV Titration 1031 Amount Parenteral Electrolytes 1031 20 ml Mvi, Adult No.4 with Vit K 10 ml Trace ( Conc-1Ml/Dose) 1 ml In Amino Acids 5 %/Dextrose 20 % 1,000 ml @ 30 mls/hr IV .BY [facility] Rx#: [id number] Hemodialysis 0 Output: Hemodialysis 0 Other: Voiding Method Diaper Diaper Diaper Incontinent Incontinent # Voids 2 0 # Bowel Movements 1 - Exam In general patient is alert and oriented x 3 in no distress HEENT head normocephalic and atraumatic Neck is supple no JVD no goiter no lymphadenopathy no carotid bruit Chest examination is clear to auscultation no crackles no wheezing Cardiac exam reveals regular heart sounds S1 and S2 no gallops no murmurs Abdomen is soft nontender no organomegaly with normal bowel sounds Extremity exam bilateral lower extremity erythema in the pretibial area right worse than left there are multiple ulcerations on the toes Neurological examination reveals no gross focal deficits - Labs CBC & Chem 7: 04/01/21 06:02 04/01/21 06:02 Labs: Abnormal Lab Results - Last 24 Hours (Table) 03/31/21 03/31/21 03/31/21 Range/Units 12:24 17:07 20:24 WBC (4.50-10.00) X 10*3/uL RBC (4.40-5.60) X 10*6/uL Hgb (13.0-17.0) g/dL Hct (39.6-50.0) % MCV (80.0-97.0) fL MCHC (32.0-37.0) g/dL RDW (11.5-14.5) % Absolute Nucleated RBC (0.00-0.00) X 10*3/uL Immature Gran # (0.00-0.04) X 10*3/uL Neutrophils # (1.80-7.70) X 10*3/uL Lymphocytes # (0.90-5.00) X 10*3/uL Monocytes # (0.20-1.00) X 10*3/uL Eosinophils # (0.04-0.35) X 10*3/uL NRBC/100 WBC Diff (0.0-0.0) /100 WBCS BUN (9-20) mg/dL Creatinine (0.66-1.25) mg/dL Glucose (74-99) mg/dL POC Glucose (mg/dL) 133 H 148 H 135 H (75-99) mg/dL Total Protein (6.3-8.2) g/dL Albumin (3.5-5.0) g/dL 04/01/21 04/01/21 04/01/21 Range/Units 06:02 06:02 07:23 WBC 12.12 H (4.50-10.00) X 10*3/uL RBC 2.91 L (4.40-5.60) X 10*6/uL Hgb 9.0 L (13.0-17.0) g/dL Hct 29.2 L (39.6-50.0) % MCV 100.3 H (80.0-97.0) fL MCHC 30.8 L (32.0-37.0) g/dL RDW 17.2 H (11.5-14.5) % Absolute Nucleated RBC 0.02 H (0.00-0.00) X 10*3/uL Immature Gran # 0.49 H (0.00-0.04) X 10*3/uL Neutrophils # 9.56 H (1.80-7.70) X 10*3/uL Lymphocytes # 0.37 L (0.90-5.00) X 10*3/uL Monocytes # 1.29 H (0.20-1.00) X 10*3/uL Eosinophils # 0.36 H (0.04-0.35) X 10*3/uL NRBC/100 WBC Diff 0.2 H (0.0-0.0) /100 WBCS BUN 43 H (9-20) mg/dL Creatinine 4.00 H (0.66-1.25) mg/dL Glucose 136 H (74-99) mg/dL POC Glucose (mg/dL) 135 H (75-99) mg/dL Total Protein 5.5 L (6.3-8.2) g/dL Albumin 2.8 L (3.5-5.0) g/dL Microbiology - Last 24 Hours (Table) 03/27/21 11:39 Blood Culture - Preliminary Blood No Growth after 96 hours 03/26/21 11:00 Blood Culture - Preliminary Blood No Growth after 120 hours Assessment and Plan Plan: Febrile illness with leukocytosis, likely related to lower extremity cellulitis, and possibly infected catheter patient has positive blood culture for gram- negative bacilli and currently he is maintained on IV cefepime, infectious disease following Bacteremia with Morganella morganii. Infectious disease services are following. CT of abdomen negative. 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 Neurology services have signed off At this time patient is admitted to medical floor Nephrology, neurology, Infectious disease vascular surgery and cardiology consultated PICC line in place with TPN Positive bacteremia, Prognosis is guarded due to advanced medical problems with multisystem involvement
[2021-04-01 20:28] LABS: Glucose,Whole Blood 152 mg/dL (75-99)
[2021-04-01] MEDS: LEVOTHYROXINE 88 MCG TAB PO SCH (20:45)
[2021-04-01] MEDS: MULTIVITAMINS, THERA 1 EACH TAB PO SCH (20:45)
--- NOTE | 2021-04-01 22:51 | PN ---
PROGRESS NOTE DATE OF SERVICE: 04/01/2021 REASON FOR FOLLOWUP: Morganella bacteremia and right leg necrotic wound. INTERVAL HISTORY: The patient is afebrile. The patient seems to be slightly more awake and alert. He is breathing comfortably on room air. Not a very good historian, though. No vomiting, diarrhea or any other changes reported by the nursing staff. PHYSICAL EXAMINATION: Blood pressure 111/63, pulse of , temperature 97.4. He is 100% on room air. General description is an elderly male lying in bed in no distress. Respiratory system: Unlabored breathing, clear to auscultation anteriorly. Heart S1, S2. Regular rate and rhythm. Abdomen soft, no tenderness. Right lateral leg with a necrotic wound. LABS: White count of 12,000. Blood culture repeat has been negative. DIAGNOSTIC IMPRESSION AND PLAN: Patient with Morganella bacteremia. This patient also has right leg blister wound and a component of ischemia, now with a necrotic wound. Vascular Surgery has been re- consulted in view of worsening of the right leg wound. Vancomycin to continue. Cefepime. Prognosis remains guarded. MMODL / IJN: [id number] /
[2021-04-02] MEDS: CEFEPIME 1 GM in SODIUM CHLORIDE 0.9% 50 ML IVPB SCH ×2 (00:23→12:47)
[2021-04-02 07:11] LABS: ALT 19 U/L (4-49); AST 23 U/L (17-59); African American GFR (CKD) 12 (>60 ml/min/1.73 sqM); Albumin 2.6 g/dL (3.5-5.0); Alkaline Phosphatase 64 U/L (38-126); Anion Gap 7 mmol/L; Blood Urea Nitrogen 55 mg/dL (9-20); Calcium 8.3 mg/dL (8.4-10.2); Carbon Dioxide 25 mmol/L (22-30); Chloride 102 mmol/L (98-107); Globulin 2.7 g/dL; Glucose 120 mg/dL (74-99); Non-African American GFR(CKD) 11 (>60 ml/min/1.73 sqM); Potassium 3.7 mmol/L (3.5-5.1); Sodium 134 mmol/L (137-145); Total Bilirubin 0.5 mg/dL (0.2-1.3); Total Protein 5.3 g/dL (6.3-8.2)
[2021-04-02 07:23] LABS: Glucose,Whole Blood 130 mg/dL (75-99)
[2021-04-02 07:44] LABS: Magnesium 2.1 mg/dL (1.6-2.3); Phosphorus 4.5 mg/dL (2.5-4.5)
[2021-04-02] MEDS: IPRATROPIUM-ALBUTEROL 3 ML NEB INHALATION PRN ×2 (08:16→19:58)
[2021-04-02] MEDS: carvediloL 12.5 MG TAB PO SCH ×2 (08:56→18:44)
[2021-04-02] MEDS: hydrALAZINE HCL 25 MG TAB PO SCH ×3 (08:56→19:55)
[2021-04-02 09:17] LABS: Basophils # (A) 0.05 X 10*3/uL (0.00-0.10); Basophils % (A) 0.4 %; Eosinophils # (A) 0.41 X 10*3/uL (0.04-0.35); Eosinophils % (A) 3.5 %; HCT 29.5 % (39.6-50.0); HGB 8.9 g/dL (13.0-17.0); Lymphocytes # (A) 0.35 X 10*3/uL (0.90-5.00); MCH 30.6 pg (27.0-32.0); MCHC 30.2 g/dL (32.0-37.0); MCV 101.4 fL (80.0-97.0); Mean Platelet Volume 10.6 fL (9.5-12.2); Monocytes # (A) 1.48 X 10*3/uL (0.20-1.00); Monocytes % (A) 12.6 %; Neutrophils # (A) 9.03 X 10*3/uL (1.80-7.70); Neutrophils % (A) 76.9 %; Platelet Count 311 X 10*3/uL (140-440); RBC 2.91 X 10*6/uL (4.40-5.60); RDW 17.2 % (11.5-14.5); WBC 11.74 X 10*3/uL (4.50-10.00)
[2021-04-02] MEDS: DARBEPOETIN ALFA 40 MCG/0.4 ML SYRINGE SQ SCH (09:48)
[2021-04-02] MEDS: DOCUSATE 100 MG CAP PO SCH (09:48)
[2021-04-02] MEDS: ESCITALOPRAM 10 MG TAB PO SCH (09:48)
[2021-04-02] MEDS: APIXABAN 2.5 MG TABLET PO SCH ×2 (09:48→19:55)
[2021-04-02] MEDS: polyethylene glycoL 3350 17 GM POWD.PACK PO SCH (09:48)
[2021-04-02] MEDS: FERROUS SULFATE 325 MG TAB PO SCH (09:48)
--- NOTE | 2021-04-02 09:59 | P.PN ---
Subjective Progress Note Date: 04/02/21 Sean Lin, is an 80-year-old male who presented to [facility] emergency room with a chief complaint of weakness and febrile illness He was evaluated in the emergency room vital examination on presentation revealed a temperature of 100.2 pulse 64 respiration 18 blood pressure 158/56 p ulse ox 100% on 2 L nasal cannula Laboratory data revealed a white blood count of 15.6 hemoglobin 12.4 platelet count 323 sodium 136 potassium 4.5 BUN 31 creatinine 2.4 to Testing in the emergency room revealed chest x-ray revealed evidence of cardiomegaly otherwise no active cardiopulmonary disease, EKG revealed ventricular paced rhythm Patient was admitted to medical floor for further evaluation and treatment Past medical history is significant for end-stage renal disease on hemodialysis, chronic systolic congestive heart failure, history of cardiac arrhythmia status post biventricular pacemaker implant, underlying history of COPD, underlying history of paroxysmal atrial fibrillation, underlying history of coronary artery disease, underlying history of peripheral arterial disease On review of systems patient is alert and oriented 3 in no apparent distress he is complaining of fever and some chills, he is also complaining of right lower extremity pain otherwise he denies any complaints there is no headache or dizziness no chest pain no shortness of breath no cough no nausea or vomiting no abdominal pain no diarrhea no blood in the stools no burning with urination no frequency or urgency and no hematuria On 03/19/2021 patient is alert and oriented 3. Patient remains on IV Maxipime for cellulitis. Patient reports he does feel significantly improved. Nephrology services following patient to receive hemodialysis today. Vascular surgery and infectious disease services also consulted. At this time patient denies chest pain or shortness breath. Patient denies nausea vomiting or diarrhea. Patient denies any urinary burning or frequency. On 03/20/2021 Patient was seen and examined on the medical floor, he is alert and oriented x 3 in no distress, he denies any complaints there is no fever or chills no headache or dizziness no chest pain no shortness of breath no palpitation no cough no nausea or vomiting no abdominal pain no diarrhea no blood in the stools no burning with urination no frequency or urgency and no hematuria, there is no weakness or numbness in any of the extremities no change in vision speech or gait. Patient was evaluated by nephrology and is continued on hemodialysis, he was also evaluated by infectious disease and is currently maintained on IV cefepime, he was evaluated by vascular surgery and no recommendation for any intervention at this time. On 03/21/2021 patient alert and oriented 3 currently eating breakfast. Blood culture positive for Morganella morganii. Per infectious disease likely source urine or abdomen. Urine is clean. CT of abdomen has been ordered per infectious disease. Patient remains on IV antibiotics for lower infection of any cellulitis. Current white blood cell 13.17. Social work PT and OT also c onsulted for discharge planning. Per nursing staff patient is very weak will likely require ECF facility upon discharge. On 03/22/2021 patient alert and oriented 3. Patient remains on IV antibiotics. labs Currently pending rate currently 97.6, heart rate 62, blood pressure 121/55 and patient oxygen saturation 96% on room air. Patient denies chest pain or shortness breath. Patient denies nausea vomiting or diarrhea. Patient denies any urinary burning or frequency. On 03/23/2021 patient is still complaining of lower extremity pain otherwise he states he is improving there is no fever or chills no headache or dizziness no chest pain no shortness of breath no cough no nausea or vomiting no chest pain no diarrhea no blood in the stools no burning with urination no frequency or urgency no hematuria On 03/24/2021 patient is confused. Per nursing staff patient will pull at lines an attempt to get out of bed. Patient currently getting hemodialysis. Potassium elevated at 65. Vascular surgery also consulted in regards to his leg. Patient remains on IV antibiotics with blood cell slightly increasing infectious disease services are following. On 03/25/2021 Patient was seen and examined on the medical floor, he is somnolent responsive in no apparent distress, he received IV Dilaudid for pain management, his son is stating that patient was holding his pelvic area with signs of pain, at this time will repeat computed tomography scan of the pelvis, I will add IV Tylenol every 6 hours when necessary and try to decrease use of narcotics. On 03/26/2021 patient remains confused. Nephrology and neurology services are following. Patient to receive hemodialysis today. CT showing no acute changes. On 03/27/2021 patient is more alert today he is confused, he answers 1 or 2 questions by yes or no and then he remains nonverbal there is no apparent distress there is no fever or chills, his temperature is 97.7 pulse 56 respirations 16 blood pressure 149/55 pulse ox 99% on 3 L nasal cannula white blood count of 13.4 hemoglobin 8.7 platelet count 310 On 03/28/2021 patient remains confused. Patient does wake up follow some commands. Patient currently on room air pulse ox 95% blood pressure 151/53 heart rate 77 and temperature 97.7. On 03/29/2021 patient is somnolent confused in no apparent distress he opened his eyes and follows some commands, there is no fever or chills, today I had a third meeting with his, care was discussed in details, I have encouraged his son to change his CODE STATUS to no code, however he declined, he stated that his father would have wanted a full code. Nutrition condition discussed in details patient is not taking any oral food or medications, possibility of NG tube and subsequently a PEG tube was discussed in details. At this time patient's son is not agreeing to any tube feeding, he is requesting IV nutrition, I explained to him that patient is not a candidate for that because he has normal gastrointestinal function, however patient's son is refusing any tube feeding at this time, I will place a consult for nutrition in regard to parenteral nutrition. On 03/30/2021 patient was seen and examined on the medical floor he is more alert today he answers 1 or 2 questions with yes or no and then he remains nonverbal, his vital exam reveals a temperature of 97.8 pulse 60 respiration 20 blood pressure 147/55 pulse ox 99% on room air laboratory data reveals a white blood count of 13.8 hemoglobin 9.3 platelet count 348 BUN 47.7 creatinine 4.4 patient had a PICC line placed today in anticipation for TPN On 03/31/2021 patient more alert today does wake up and follow some commands. Patient has been started on TPN through PICC line. Per nursing staff patient is able to take his pills will start patient on clear liquid diet and resume home dose of eliquis. Patient currently receiving hemodialysis. Temp 98, heart rate 60, blood pressure 141/50 pulse ox 99% on 4 L. On 04/01/2021 patient is doing better he is more alert and responsive today there is no fever or chills no headache or dizziness no chest pain no shortness of breath no cough no nausea or vomiting he is taking some oral intake he remains on TPN via PICC line, his vital exam reveals a temperature of 97.4 pulse 60 respiration 20 blood pressure 126/53 pulse ox 98% on 4 L nasal cannula laboratory data reveals a white blood count of 12.12 hemoglobin 9.0 platelet count 325 BUN 43 creatinine 4.0 patient is maintained on hemodialysis On 04/02/2021 patient is more alert and responsive today does answer questions. Per nursing staff Dr. Henriquez was in to assess patient awaiting discussion with son in regards to possible debridement per nursing staff. Patient currently getting hemodialysis. Patient remains on nasal cannula 4 L. White blood cell 11.47. Patient denies any chest pain or shortness breath. Patient denies nausea vomiting or diarrhea. Patient denies any urinary burning or frequency Objective - Vital Signs Vital signs: Vital Signs Temp 96.6 F L 04/02/21 08:00 Pulse 62 04/02/21 08:26 Resp 17 04/02/21 08:00 BP 145/69 04/02/21 08:00 Pulse Ox 100 04/02/21 08:00 Intake & Output 04/01/21 04/02/21 04/02/21 18:59 06:59 18:59 Intake Total 500 200 Balance 500 200 Weight 84.6 kg Intake: IV 410 Cefepime 1 gm In Sodium 50 Chloride 0.9% 50 ml @ 12. 5 mls/hr IVPB Q12H [facility] Rx #:[id number] Parenteral Electrolytes 360 20 ml In Amino Acids 5 %/ Dextrose 20 % 1,000 ml @ 30 mls/hr IV .BY DURATION [facility] Rx#:[id number] Oral 90 200 Other: Voiding Method Diaper Diaper Incontinent Incontinent # Voids 0 1 - Exam In general patient is alert and oriented x 3 in no distress HEENT head normocephalic and atraumatic Neck is supple no JVD no goiter no lymphadenopathy no carotid bruit Chest examination is clear to auscultation no crackles no wheezing Cardiac exam reveals regular heart sounds S1 and S2 no gallops no murmurs Abdomen is soft nontender no organomegaly with normal bowel sounds Extremity exam bilateral lower extremity erythema in the pretibial area right worse than left there are multiple ulcerations on the toes Neurological examination reveals no gross focal deficits - Labs CBC & Chem 7: 04/02/21 05:59 04/02/21 05:59 Labs: Abnormal Lab Results - Last 24 Hours (Table) 04/01/21 04/01/21 04/01/21 Range/Units 12:24 17:25 20:26 WBC (4.50-10.00) X 10*3/uL RBC (4.40-5.60) X 10*6/uL Hgb (13.0-17.0) g/dL Hct (39.6-50.0) % MCV (80.0-97.0) fL MCHC (32.0-37.0) g/dL RDW (11.5-14.5) % Immature Gran # (0.00-0.04) X 10*3/uL Neutrophils # (1.80-7.70) X 10*3/uL Lymphocytes # (0.90-5.00) X 10*3/uL Monocytes # (0.20-1.00) X 10*3/uL Eosinophils # (0.04-0.35) X 10*3/uL Sodium (137-145) mmol/L BUN (9-20) mg/dL Creatinine (0.66-1.25) mg/dL Glucose (74-99) mg/dL POC Glucose (mg/dL) 134 H 128 H 152 H (75-99) mg/dL Calcium (8.4-10.2) mg/dL Total Protein (6.3-8.2) g/dL Albumin (3.5-5.0) g/dL 04/02/21 04/02/21 04/02/21 Range/Units 05:59 05:59 07:21 WBC 11.74 H (4.50-10.00) X 10*3/uL RBC 2.91 L (4.40-5.60) X 10*6/uL Hgb 8.9 L (13.0-17.0) g/dL Hct 29.5 L (39.6-50.0) % MCV 101.4 H (80.0-97.0) fL MCHC 30.2 L (32.0-37.0) g/dL RDW 17.2 H (11.5-14.5) % Immature Gran # 0.42 H (0.00-0.04) X 10*3/uL Neutrophils # 9.03 H (1.80-7.70) X 10*3/uL Lymphocytes # 0.35 L (0.90-5.00) X 10*3/uL Monocytes # 1.48 H (0.20-1.00) X 10*3/uL Eosinophils # 0.41 H (0.04-0.35) X 10*3/uL Sodium 134 L (137-145) mmol/L BUN 55 H (9-20) mg/dL Creatinine 4.80 H (0.66-1.25) mg/dL Glucose 120 H (74-99) mg/dL POC Glucose (mg/dL) 130 H (75-99) mg/dL Calcium 8.3 L (8.4-10.2) mg/dL Total Protein 5.3 L (6.3-8.2) g/dL Albumin 2.6 L (3.5-5.0) g/dL Microbiology - Last 24 Hours (Table) 03/27/21 11:39 Blood Culture - Preliminary Blood No Growth after 120 hours 03/26/21 11:00 Blood Culture - Final Blood No Growth after 144 hours Assessment and Plan Plan: Febrile illness with leukocytosis, likely related to lower extremity cellulitis, and possibly infected catheter patient has positive blood culture for gram- negative bacilli and currently he is maintained on IV cefepime, infectious disease following Bacteremia with Morganella morganii. Infectious disease services are following. CT of abdomen negative. 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 Neurology services have signed off At this time patient is admitted to medical floor Nephrology, neurology, Infectious disease vascular surgery and cardiology consultated PICC line in place with TPN Prognosis is guarded due to advanced medical problems with multisystem involvement
[2021-04-02 12:29] LABS: Glucose,Whole Blood 100 mg/dL (75-99)
[2021-04-02] MEDS ORDERED: VANCOMYCIN 1,500 MG in SODIUM CHLORIDE 0.9% 250 ML IVPB ONE (14:00)
[2021-04-02 17:13] LABS: Glucose,Whole Blood 86 mg/dL (75-99)
[2021-04-02 17:39] LABS: Hepatitis B Surface AB- Quant 3.5 mIU/mL; Hepatitis B Surface Antibody Nonreactive (Nonreactive); Hepatitis B Surface Antigen Nonreactive (Nonreactive)
[2021-04-02] MEDS: 1: PARENTERAL ELECTROLYTES 20 ML, MVI, ADULT NO.4 WITH VIT K 10 ML, TRACE (CONC-1ML/DOSE IV SCH ×4 (18:09)
--- NOTE | 2021-04-02 18:31 | PN ---
PROGRESS NOTE The patient is seen for followup for end-stage renal disease. He is currently seen on dialysis. Patient is tolerating his treatment well. This morning he is awake. He is able to answer questions. He does recognize me and did state my name as well. This is a significant change director the last couple of days. The patient is maintained on TPN and no plans for ultrafiltration. PHYSICAL EXAMINATION: On examination today, blood pressure was 145/69, heart rate of 60 per minute. Patient is afebrile. Examination of the heart S1, S2. Examination of lungs, bilateral breath sounds are heard. Decreased breath sounds at the bases. Abdomen is soft, nontender. Examination of lower extremities: No evidence of edema. HOME CARE RN exam grossly intact. Patient is moving his extremities. He also recognizes me today. LABS: Show sodium 134, potassium 3.7, BUN 55, serum creatinine 4.8, hemoglobin 8.9 g/dL. ASSESSMENT: 1. End-stage renal disease, on hemodialysis on a Monday, Monday, Monday schedule. Patient was started on dialysis in October of 2020 after an episode of acute kidney injury on top of chronic kidney disease. Previous creatinine had been around 2.5 mg/dL prior to initiation of dialysis. The patient's creatinine had been staying around 4-4.5 as outpatient and he has not been able to come off dialysis. The patient usually does not have any significant ultrafiltration with his treatments and during his hospitalization for the last 3-4 days we have had no UF and patient was started on TPN about two days ago. His mentation has improved significantly over the last two days. 2. Encephalopathy, currently improved. 3. Gram-negative bacteremia with initial blood cultures growing Morganella morganii with repeat blood cultures are negative including urine cultures. The patient is maintained on antibiotics. CT of the abdomen was unremarkable. 4. Chronic kidney disease mineral bone disorder. Patient has not been eating and therefore he has not received any phosphate binders. 5. Possible pneumonia, maintained on antibiotics. PLAN: Next dialysis on Monday. No UF with treatment today. MMODL / IJN: [id number] /
--- NOTE | 2021-04-02 18:37 | PN ---
PROGRESS NOTE DATE OF SERVICE: 04/02/2021 REASON FOR FOLLOWUP: Morganella bacteremia, right leg wound. INTERVAL HISTORY: The patient is afebrile. The patient is currently breathing comfortably, seems to be more awake and alert. No vomiting, diarrhea or any other changes reported by the nursing staff. PHYSICAL EXAMINATION: Blood pressure 150/53 with a pulse of 44, temperature 97.4. He is 95% on 2 L nasal cannula. General description is an elderly male lying in bed in no distress. Respiratory system: Unlabored breathing, decreased intensity of breath sounds. No wheeze. Heart S1, S2. Regular rate and rhythm. Abdomen soft, no tenderness. Right lateral leg with a necrotic wound. Surrounding redness is improved. LABS: Hemoglobin is 8.9, white count 11.74, creatinine 4.80. DIAGNOSTIC IMPRESSION AND PLAN: Patient with Morganella bacteremia in this patient with repeat blood culture negative. Necrotic wound to the right leg. Patient is covered with cefepime and vancomycin; to continue while monitoring clinical course closely. Continue with supportive care. MMODL / IJN: [id number] /
[2021-04-02] MEDS: LEVOTHYROXINE 88 MCG TAB PO SCH (19:55)
[2021-04-02] MEDS: MULTIVITAMINS, THERA 1 EACH TAB PO SCH (19:55)
[2021-04-02 20:13] LABS: Glucose,Whole Blood 181 mg/dL (75-99)
[2021-04-03] MEDS: CEFEPIME 1 GM in SODIUM CHLORIDE 0.9% 50 ML IVPB SCH ×3 (00:30→22:26)
[2021-04-03] MEDS: 1: PARENTERAL ELECTROLYTES 20 ML, MVI, ADULT NO.4 WITH VIT K 10 ML, TRACE (CONC-1ML/DOSE IV SCH ×8 (07:00→07:36)
[2021-04-03 07:02] LABS: Glucose,Whole Blood 131 mg/dL (75-99)
[2021-04-03 07:02] LABS: African American GFR (CKD) 18 (>60 ml/min/1.73 sqM); Anion Gap 7 mmol/L; Blood Urea Nitrogen 41 mg/dL (9-20); Calcium 8.3 mg/dL (8.4-10.2); Carbon Dioxide 24 mmol/L (22-30); Chloride 100 mmol/L (98-107); Glucose 132 mg/dL (74-99); Non-African American GFR(CKD) 15 (>60 ml/min/1.73 sqM); Phosphorus 3.3 mg/dL (2.5-4.5); Sodium 131 mmol/L (137-145)
[2021-04-03 09:25] LABS: Vancomycin,Random 18.1 ug/mL
[2021-04-03] MEDS: ESCITALOPRAM 10 MG TAB PO SCH (10:04)
[2021-04-03] MEDS: FERROUS SULFATE 325 MG TAB PO SCH (10:04)
[2021-04-03] MEDS: APIXABAN 2.5 MG TABLET PO SCH ×2 (10:04→22:17)
[2021-04-03] MEDS: DOCUSATE 100 MG CAP PO SCH (10:04)
[2021-04-03] MEDS: carvediloL 12.5 MG TAB PO SCH ×2 (10:04→18:37)
[2021-04-03] MEDS: polyethylene glycoL 3350 17 GM POWD.PACK PO SCH (10:05)
[2021-04-03] MEDS: hydrALAZINE HCL 25 MG TAB PO SCH ×3 (10:05→22:17)
--- NOTE | 2021-04-03 11:53 | P.GSCN ---
History of Present Illness History of present illness: 80-year-old gentleman known to me patient has history of chronic or failure we placed a dialysis catheter right IJ for dialysis. Patient has a COPD and also patient has history of 4 peripheral vascular disease. Patient has a wound on the lateral aspect the right leg no history of trauma there is scab formation noted on the lateral aspect of the lower leg with some redness of the skin. 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 Past Anesthesia/Blood Transfusion Reactions: No Reported Reaction Additional Past Anesthesia/Blood Transfusion Reaction / Comm: Pt has received blood in past without reaction. Type of Cardiac Device: Permanent Pacemaker Device Placement Date:: 09/28/19 Past Psychological History: No Psychological Hx Reported Smoking Status: Former smoker Past Alcohol Use History: None Reported Past Drug Use History: None Reported - Past Family History Mother Family Medical History: No Reported History Additional Family Medical History / Comment(s): Mother was healthy and lived to be 97yrs old. Daughter(s) History Unknown: Yes Family Medical History: Cancer Additional Family Medical History / Comment(s): uterine/lung/brain CA - current terminal Father History Unknown: Yes Family Medical History: Cancer Additional Family Medical History / Comment(s): prostate CA - from Medications and Allergies Home Medications Medication Instructions Recorded Confirmed Type Multivitamin [Men's Multi-Vitamin] 1 tab PO HS 12/13/14 03/18/21 History Levothyroxine Sodium [Synthroid] 88 mcg PO HS 08/30/19 03/18/21 History Losartan [Cozaar] 25 mg PO HS tab 10/02/19 03/18/21 Rx Allopurinol [Zyloprim] 100 mg PO DAILY 09/25/20 03/18/21 History Apixaban [Eliquis] 2.5 mg PO BID tablet 10/19/20 03/18/21 Rx Escitalopram [Lexapro] 10 mg PO DAILY tab 10/19/20 03/18/21 Rx Furosemide [Lasix] 40 mg PO BID 30 Days #60 tablet 10/19/20 03/18/21 Rx hydrALAZINE HCL [Apresoline] 25 mg PO TID tab 10/19/20 03/18/21 Rx polyethylene glycoL 3350 [Miralax] 17 gm PO DAILY powd.pack 10/19/20 03/18/21 Rx Carvedilol [Coreg] 12.5 mg PO BID 03/18/21 03/18/21 History Docusate [Colace] 100 mg PO DAILY 03/18/21 03/18/21 History Ferrous Sulfate [Feosol] 325 mg PO DAILY 03/18/21 03/18/21 History Fluticasone Nasal Avery [Flonase 1 - 2 spray EA NOSTRIL DAILY PRN 03/18/21 03/18/21 History Nasal Avery] Allergies Allergy/AdvReac Type Severity Reaction Status Date / Time erythromycin base Allergy Unknown Verified 03/18/21 09:19 Sulfa (Sulfonamide Allergy Rash/Hives Verified 03/18/21 09:19 Antibiotics) Surgical - Exam Vital Signs Temp Pulse Resp BP Pulse Ox 100.2 F H 64 18 158/56 100 03/18/21 03:10 03/18/21 03:10 03/18/21 03:10 03/18/21 03:10 03/18/21 03:10 Results - Labs 04/02/21 05:59 04/03/21 05:55 Abnormal Lab Results - Last 24 Hours (Table) 04/02/21 04/02/21 04/03/21 Range/Units 12:28 20:11 05:55 Sodium 131 L (137-145) mmol/L BUN 41 H (9-20) mg/dL Creatinine 3.53 H (0.66-1.25) mg/dL Glucose 132 H (74-99) mg/dL POC Glucose (mg/dL) 100 H 181 H (75-99) mg/dL Calcium 8.3 L (8.4-10.2) mg/dL 04/03/21 Range/Units 07:00 Sodium (137-145) mmol/L BUN (9-20) mg/dL Creatinine (0.66-1.25) mg/dL Glucose (74-99) mg/dL POC Glucose (mg/dL) 131 H (75-99) mg/dL Calcium (8.4-10.2) mg/dL Microbiology - Last 24 Hours (Table) 03/27/21 11:39 Blood Culture - Final Blood No Growth after 144 hours Diabetes panel 04/03/21 Range/Units 05:55 Sodium 131 L (137-145) mmol/L Potassium 4.0 (3.5-5.1) mmol/L Chloride 100 (98-107) mmol/L Carbon Dioxide 24 (22-30) mmol/L BUN 41 H (9-20) mg/dL Creatinine 3.53 H (0.66-1.25) mg/dL Glucose 132 H (74-99) mg/dL Calcium 8.3 L (8.4-10.2) mg/dL Calcium panel 04/03/21 Range/Units 05:55 Calcium 8.3 L (8.4-10.2) mg/dL Phosphorus 3.3 (2.5-4.5) mg/dL Pituitary panel 04/03/21 Range/Units 05:55 Sodium 131 L (137-145) mmol/L Potassium 4.0 (3.5-5.1) mmol/L Chloride 100 (98-107) mmol/L Carbon Dioxide 24 (22-30) mmol/L BUN 41 H (9-20) mg/dL Creatinine 3.53 H (0.66-1.25) mg/dL Glucose 132 H (74-99) mg/dL Calcium 8.3 L (8.4-10.2) mg/dL Adrenal panel 04/03/21 Range/Units 05:55 Sodium 131 L (137-145) mmol/L Potassium 4.0 (3.5-5.1) mmol/L Chloride 100 (98-107) mmol/L Carbon Dioxide 24 (22-30) mmol/L BUN 41 H (9-20) mg/dL Creatinine 3.53 H (0.66-1.25) mg/dL Glucose 132 H (74-99) mg/dL Calcium 8.3 L (8.4-10.2) mg/dL
[2021-04-03] MEDS ORDERED: LIDOCAINE 1% INJ 10MG/ML (20 ML MDV) SQ ONE (12:00)
[2021-04-03 12:16] LABS: Glucose,Whole Blood 150 mg/dL (75-99)
--- NOTE | 2021-04-03 12:43 | P.PN ---
Subjective Progress Note Date: 04/03/21 Principal diagnosis: [id number] male seen in consultation with ESRD, came in because of confusion gram-negative bacteremia mental status changes Is improved significantly. Although at the time of this exam sleepy but arousable. I spoke to the nursing staff and they said he was awake alert oriented and is doing very well eating well although he is on TPN currently. While signs are stable, afebrile Is known with COPD, atrial fibrillation, Objective - Vital Signs Vital signs: Vital Signs Temp 97.4 F L 04/03/21 08:00 Pulse 64 04/03/21 08:00 Resp 18 04/03/21 08:00 BP 154/56 04/03/21 08:00 Pulse Ox 100 04/03/21 08:00 Intake & Output 04/02/21 04/03/21 04/03/21 18:59 06:59 18:59 Intake Total 100 1270 Output Total 0 Balance 100 1270 Weight 84.6 kg 83.5 kg Intake: Intake, IV Titration 1020 Amount Parenteral Electrolytes 1020 20 ml In Amino Acids 5 %/ Dextrose 20 % 1,000 ml @ 80 mls/hr IV .BY DURATION [facility] Rx#:[id number] Oral 100 250 Output: Urine 0 Other: Voiding Method Diaper Diaper Incontinent Incontinent # Voids 1 On examination arousable sleepy though HEENT exam no JVP neck is supple no facial asymmetry Lungs clear to auscultation good air entry bilaterally Heart sounds unremarkable for any murmur rub gallop Abdomen soft nontender Extremity exam reveals erythematous right leg with bandages on. There is bandages on the left leg also as well as on the left hand. We'll get permacath on his right side Neurologically arousable but very sleepy currently - Labs CBC & Chem 7: 04/02/21 05:59 04/03/21 05:55 Labs: Abnormal Lab Results - Last 24 Hours (Table) 04/02/21 04/03/21 04/03/21 Range/Units 20:11 05:55 07:00 Sodium 131 L (137-145) mmol/L BUN 41 H (9-20) mg/dL Creatinine 3.53 H (0.66-1.25) mg/dL Glucose 132 H (74-99) mg/dL POC Glucose (mg/dL) 181 H 131 H (75-99) mg/dL Calcium 8.3 L (8.4-10.2) mg/dL 04/03/21 Range/Units 12:14 Sodium (137-145) mmol/L BUN (9-20) mg/dL Creatinine (0.66-1.25) mg/dL Glucose (74-99) mg/dL POC Glucose (mg/dL) 150 H (75-99) mg/dL Calcium (8.4-10.2) mg/dL Microbiology - Last 24 Hours (Table) 03/27/21 11:39 Blood Culture - Final Blood No Growth after 144 hours Assessment and Plan Assessment: Impression 1. ESRD on dialysis Monday permacath right side 2. Admitted with gram-negative bacteremia, Morganella morganii. Source possible permacath 3. Cellulitis right leg with necrotic wound 4. Anemia hemoglobin was 9, 8.9 this morning on saturation is 31% on 03/30/2021 Recommendation 1. Maintain dialysis schedule Monday 2. Continue antibiotics. 3. Monitor labs including hemoglobin
--- NOTE | 2021-04-03 13:11 | P.PN ---
Subjective Progress Note Date: 04/03/21 Sean Lin, is an 80-year-old male who presented to [facility] emergency room with a chief complaint of weakness and febrile illness He was evaluated in the emergency room vital examination on presentation revealed a temperature of 100.2 pulse 64 respiration 18 blood pressure 158/56 p ulse ox 100% on 2 L nasal cannula Laboratory data revealed a white blood count of 15.6 hemoglobin 12.4 platelet count 323 sodium 136 potassium 4.5 BUN 31 creatinine 2.4 to Testing in the emergency room revealed chest x-ray revealed evidence of cardiomegaly otherwise no active cardiopulmonary disease, EKG revealed ventricular paced rhythm Patient was admitted to medical floor for further evaluation and treatment Past medical history is significant for end-stage renal disease on hemodialysis, chronic systolic congestive heart failure, history of cardiac arrhythmia status post biventricular pacemaker implant, underlying history of COPD, underlying history of paroxysmal atrial fibrillation, underlying history of coronary artery disease, underlying history of peripheral arterial disease On review of systems patient is alert and oriented 3 in no apparent distress he is complaining of fever and some chills, he is also complaining of right lower extremity pain otherwise he denies any complaints there is no headache or dizziness no chest pain no shortness of breath no cough no nausea or vomiting no abdominal pain no diarrhea no blood in the stools no burning with urination no frequency or urgency and no hematuria On 03/19/2021 patient is alert and oriented 3. Patient remains on IV Maxipime for cellulitis. Patient reports he does feel significantly improved. Nephrology services following patient to receive hemodialysis today. Vascular surgery and infectious disease services also consulted. At this time patient denies chest pain or shortness breath. Patient denies nausea vomiting or diarrhea. Patient denies any urinary burning or frequency. On 03/20/2021 Patient was seen and examined on the medical floor, he is alert and oriented x 3 in no distress, he denies any complaints there is no fever or chills no headache or dizziness no chest pain no shortness of breath no palpitation no cough no nausea or vomiting no abdominal pain no diarrhea no blood in the stools no burning with urination no frequency or urgency and no hematuria, there is no weakness or numbness in any of the extremities no change in vision speech or gait. Patient was evaluated by nephrology and is continued on hemodialysis, he was also evaluated by infectious disease and is currently maintained on IV cefepime, he was evaluated by vascular surgery and no recommendation for any intervention at this time. On 03/21/2021 patient alert and oriented 3 currently eating breakfast. Blood culture positive for Morganella morganii. Per infectious disease likely source urine or abdomen. Urine is clean. CT of abdomen has been ordered per infectious disease. Patient remains on IV antibiotics for lower infection of any cellulitis. Current white blood cell 13.17. Social work PT and OT also c onsulted for discharge planning. Per nursing staff patient is very weak will likely require ECF facility upon discharge. On 03/22/2021 patient alert and oriented 3. Patient remains on IV antibiotics. labs Currently pending rate currently 97.6, heart rate 62, blood pressure 121/55 and patient oxygen saturation 96% on room air. Patient denies chest pain or shortness breath. Patient denies nausea vomiting or diarrhea. Patient denies any urinary burning or frequency. On 03/23/2021 patient is still complaining of lower extremity pain otherwise he states he is improving there is no fever or chills no headache or dizziness no chest pain no shortness of breath no cough no nausea or vomiting no chest pain no diarrhea no blood in the stools no burning with urination no frequency or urgency no hematuria On 03/24/2021 patient is confused. Per nursing staff patient will pull at lines an attempt to get out of bed. Patient currently getting hemodialysis. Potassium elevated at 65. Vascular surgery also consulted in regards to his leg. Patient remains on IV antibiotics with blood cell slightly increasing infectious disease services are following. On 03/25/2021 Patient was seen and examined on the medical floor, he is somnolent responsive in no apparent distress, he received IV Dilaudid for pain management, his son is stating that patient was holding his pelvic area with signs of pain, at this time will repeat computed tomography scan of the pelvis, I will add IV Tylenol every 6 hours when necessary and try to decrease use of narcotics. On 03/26/2021 patient remains confused. Nephrology and neurology services are following. Patient to receive hemodialysis today. CT showing no acute changes. On 03/27/2021 patient is more alert today he is confused, he answers 1 or 2 questions by yes or no and then he remains nonverbal there is no apparent distress there is no fever or chills, his temperature is 97.7 pulse 56 respirations 16 blood pressure 149/55 pulse ox 99% on 3 L nasal cannula white blood count of 13.4 hemoglobin 8.7 platelet count 310 On 03/28/2021 patient remains confused. Patient does wake up follow some commands. Patient currently on room air pulse ox 95% blood pressure 151/53 heart rate 77 and temperature 97.7. On 03/29/2021 patient is somnolent confused in no apparent distress he opened his eyes and follows some commands, there is no fever or chills, today I had a third meeting with his, care was discussed in details, I have encouraged his son to change his CODE STATUS to no code, however he declined, he stated that his father would have wanted a full code. Nutrition condition discussed in details patient is not taking any oral food or medications, possibility of NG tube and subsequently a PEG tube was discussed in details. At this time patient's son is not agreeing to any tube feeding, he is requesting IV nutrition, I explained to him that patient is not a candidate for that because he has normal gastrointestinal function, however patient's son is refusing any tube feeding at this time, I will place a consult for nutrition in regard to parenteral nutrition. On 03/30/2021 patient was seen and examined on the medical floor he is more alert today he answers 1 or 2 questions with yes or no and then he remains nonverbal, his vital exam reveals a temperature of 97.8 pulse 60 respiration 20 blood pressure 147/55 pulse ox 99% on room air laboratory data reveals a white blood count of 13.8 hemoglobin 9.3 platelet count 348 BUN 47.7 creatinine 4.4 patient had a PICC line placed today in anticipation for TPN On 03/31/2021 patient more alert today does wake up and follow some commands. Patient has been started on TPN through PICC line. Per nursing staff patient is able to take his pills will start patient on clear liquid diet and resume home dose of eliquis. Patient currently receiving hemodialysis. Temp 98, heart rate 60, blood pressure 141/50 pulse ox 99% on 4 L. On 04/01/2021 patient is doing better he is more alert and responsive today there is no fever or chills no headache or dizziness no chest pain no shortness of breath no cough no nausea or vomiting he is taking some oral intake he remains on TPN via PICC line, his vital exam reveals a temperature of 97.4 pulse 60 respiration 20 blood pressure 126/53 pulse ox 98% on 4 L nasal cannula laboratory data reveals a white blood count of 12.12 hemoglobin 9.0 platelet count 325 BUN 43 creatinine 4.0 patient is maintained on hemodialysis On 04/02/2021 patient is more alert and responsive today does answer questions. Per nursing staff Dr. Henriquez was in to assess patient awaiting discussion with son in regards to possible debridement per nursing staff. Patient currently getting hemodialysis. Patient remains on nasal cannula 4 L. White blood cell 11.47. Patient denies any chest pain or shortness breath. Patient denies nausea vomiting or diarrhea. Patient denies any urinary burning or frequency. On 04/03/2021 patient was seen and examined on the medical floor he is alert responsive in no apparent distress he answers a few questions by yes or no and then he stops answering there is no fever or chills no chest pain or shortness of breath he is still having minimal oral intake he is still maintained on TPN he is still maintained on hemodialysis, patient is also maintained on IV antibiotics and is followed by infectious disease white blood count is improving gradually. No plans for any intervention by vascular surgery at this point. Patient's son is still wanting full code and full medical management, will continue with current care, possible transfer to a long-term for rehab in few days once white blood count normalizes. Objective - Vital Signs Vital signs: Vital Signs Temp 97.4 F L 04/03/21 08:00 Pulse 64 04/03/21 08:00 Resp 18 04/03/21 08:00 BP 154/56 04/03/21 08:00 Pulse Ox 100 04/03/21 08:00 Intake & Output 04/02/21 04/03/21 04/03/21 18:59 06:59 18:59 Intake Total 100 1270 Output Total 0 Balance 100 1270 Weight 84.6 kg 83.5 kg Intake: Intake, IV Titration 1020 Amount Parenteral Electrolytes 1020 20 ml In Amino Acids 5 %/ Dextrose 20 % 1,000 ml @ 80 mls/hr IV .BY DURATION [facility]ISCO Rx#:[id number] Oral 100 250 Output: Urine 0 Other: Voiding Method Diaper Diaper Incontinent Incontinent # Voids 1 - Exam In general patient is alert and oriented x 3 in no distress HEENT head normocephalic and atraumatic Neck is supple no JVD no goiter no lymphadenopathy no carotid bruit Chest examination is clear to auscultation no crackles no wheezing Cardiac exam reveals regular heart sounds S1 and S2 no gallops no murmurs Abdomen is soft nontender no organomegaly with normal bowel sounds Extremity exam bilateral lower extremity erythema in the pretibial area right worse than left there are multiple ulcerations on the toes Neurological examination reveals no gross focal deficits - Labs CBC & Chem 7: 04/02/21 05:59 04/03/21 05:55 Labs: Abnormal Lab Results - Last 24 Hours (Table) 04/02/21 04/02/21 04/03/21 Range/Units 12:28 20:11 05:55 Sodium 131 L (137-145) mmol/L BUN 41 H (9-20) mg/dL Creatinine 3.53 H (0.66-1.25) mg/dL Glucose 132 H (74-99) mg/dL POC Glucose (mg/dL) 100 H 181 H (75-99) mg/dL Calcium 8.3 L (8.4-10.2) mg/dL 04/03/21 Range/Units 07:00 Sodium (137-145) mmol/L BUN (9-20) mg/dL Creatinine (0.66-1.25) mg/dL Glucose (74-99) mg/dL POC Glucose (mg/dL) 131 H (75-99) mg/dL Calcium (8.4-10.2) mg/dL Microbiology - Last 24 Hours (Table) 03/27/21 11:39 Blood Culture - Final Blood No Growth after 144 hours Assessment and Plan Plan: Febrile illness with leukocytosis, likely related to lower extremity cellulitis, and possibly infected catheter patient has positive blood culture for gram- negative bacilli and currently he is maintained on IV cefepime, infectious disease following Bacteremia with Morganella morganii. Infectious disease services are following. CT of abdomen negative. 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 Neurology services have signed off At this time patient is admitted to medical floor Nephrology, neurology, Infectious disease vascular surgery and cardiology consultated PICC line in place with TPN Prognosis is guarded due to advanced medical problems with multisystem involvement
[2021-04-03 17:08] LABS: Glucose,Whole Blood 145 mg/dL (75-99)
[2021-04-03] MEDS ORDERED: VANCOMYCIN 1,500 MG in SODIUM CHLORIDE 0.9% 250 ML IVPB ONE (18:00)
--- NOTE | 2021-04-03 20:11 | PN ---
PROGRESS NOTE DATE OF SERVICE: 04/03/2021 REASON FOR FOLLOWUP: Bacteremia and right leg ischemia and cellulitis. INTERVAL HISTORY: The patient is afebrile. The patient is currently breathing comfortably. He is noted to be slightly more awake and alert. No chest pain or cough. No vomiting. No abdominal pain or any worsening pain to the right leg wound area. PHYSICAL EXAMINATION: Blood pressure 121/49 with a pulse of 62, temperature 97.5. He is 97% on 4 L nasal cannula. General description is an elderly male lying in bed in no distress. Respiratory system: Unlabored breathing, clear to auscultation anteriorly. Heart S1, S2. Regular rate and rhythm. Abdomen soft, no tenderness. Right leg wound with some cellulitis. No drainage was noticed. DIAGNOSTIC IMPRESSION AND PLAN: Patient with Morganella bacteremia in this patient who did have right lower extremity necrotic wound with cellulitis, covered with cefepime and vancomycin; to continue while monitoring clinical course closely. Continue supportive care. MMODL / IJN: [id number] /
[2021-04-03 20:49] LABS: Glucose,Whole Blood 137 mg/dL (75-99)
[2021-04-03] MEDS ORDERED: 1: PARENTERAL ELECTROLYTES 20 ML, MVI, ADULT NO.4 WITH VIT K 10 ML, TRACE (CONC-1ML/DOSE IV SCH ×5 (21:00)
[2021-04-03] MEDS: HYDROmorphone 0.5 MG/0.5 ML SYRINGE IVP PRN (22:15)
[2021-04-03] MEDS: MULTIVITAMINS, THERA 1 EACH TAB PO SCH (22:17)
[2021-04-03] MEDS: LEVOTHYROXINE 88 MCG TAB PO SCH (22:17)
[2021-04-04 07:17] LABS: Glucose,Whole Blood 499 mg/dL (75-99)
[2021-04-04 07:22] LABS: Glucose,Whole Blood 474 mg/dL (75-99)
[2021-04-04] MEDS: carvediloL 12.5 MG TAB PO SCH ×3 (08:20→18:38)
[2021-04-04] MEDS: FERROUS SULFATE 325 MG TAB PO SCH (08:20)
[2021-04-04] MEDS: APIXABAN 2.5 MG TABLET PO SCH ×2 (08:20→22:50)
[2021-04-04] MEDS: ESCITALOPRAM 10 MG TAB PO SCH (08:20)
[2021-04-04] MEDS: DOCUSATE 100 MG CAP PO SCH (08:20)
[2021-04-04] MEDS: polyethylene glycoL 3350 17 GM POWD.PACK PO SCH (08:20)
[2021-04-04] MEDS: hydrALAZINE HCL 25 MG TAB PO SCH ×4 (08:20→22:50)
[2021-04-04] MEDS: INSULIN ASPART (NovoLOG) 100 UNIT/ML VIAL SQ SCH ×4 (08:21→22:18)
--- NOTE | 2021-04-04 10:35 | P.PN ---
Subjective Progress Note Date: 04/04/21 Sean Lin, is an 80-year-old male who presented to [facility] emergency room with a chief complaint of weakness and febrile illness He was evaluated in the emergency room vital examination on presentation revealed a temperature of 100.2 pulse 64 respiration 18 blood pressure 158/56 p ulse ox 100% on 2 L nasal cannula Laboratory data revealed a white blood count of 15.6 hemoglobin 12.4 platelet count 323 sodium 136 potassium 4.5 BUN 31 creatinine 2.4 to Testing in the emergency room revealed chest x-ray revealed evidence of cardiomegaly otherwise no active cardiopulmonary disease, EKG revealed ventricular paced rhythm Patient was admitted to medical floor for further evaluation and treatment Past medical history is significant for end-stage renal disease on hemodialysis, chronic systolic congestive heart failure, history of cardiac arrhythmia status post biventricular pacemaker implant, underlying history of COPD, underlying history of paroxysmal atrial fibrillation, underlying history of coronary artery disease, underlying history of peripheral arterial disease On review of systems patient is alert and oriented 3 in no apparent distress he is complaining of fever and some chills, he is also complaining of right lower extremity pain otherwise he denies any complaints there is no headache or dizziness no chest pain no shortness of breath no cough no nausea or vomiting no abdominal pain no diarrhea no blood in the stools no burning with urination no frequency or urgency and no hematuria On 03/19/2021 patient is alert and oriented 3. Patient remains on IV Maxipime for cellulitis. Patient reports he does feel significantly improved. Nephrology services following patient to receive hemodialysis today. Vascular surgery and infectious disease services also consulted. At this time patient denies chest pain or shortness breath. Patient denies nausea vomiting or diarrhea. Patient denies any urinary burning or frequency. On 03/20/2021 Patient was seen and examined on the medical floor, he is alert and oriented x 3 in no distress, he denies any complaints there is no fever or chills no headache or dizziness no chest pain no shortness of breath no palpitation no cough no nausea or vomiting no abdominal pain no diarrhea no blood in the stools no burning with urination no frequency or urgency and no hematuria, there is no weakness or numbness in any of the extremities no change in vision speech or gait. Patient was evaluated by nephrology and is continued on hemodialysis, he was also evaluated by infectious disease and is currently maintained on IV cefepime, he was evaluated by vascular surgery and no recommendation for any intervention at this time. On 03/21/2021 patient alert and oriented 3 currently eating breakfast. Blood culture positive for Morganella morganii. Per infectious disease likely source urine or abdomen. Urine is clean. CT of abdomen has been ordered per infectious disease. Patient remains on IV antibiotics for lower infection of any cellulitis. Current white blood cell 13.17. Social work PT and OT also c onsulted for discharge planning. Per nursing staff patient is very weak will likely require ECF facility upon discharge. On 03/22/2021 patient alert and oriented 3. Patient remains on IV antibiotics. labs Currently pending rate currently 97.6, heart rate 62, blood pressure 121/55 and patient oxygen saturation 96% on room air. Patient denies chest pain or shortness breath. Patient denies nausea vomiting or diarrhea. Patient denies any urinary burning or frequency. On 03/23/2021 patient is still complaining of lower extremity pain otherwise he states he is improving there is no fever or chills no headache or dizziness no chest pain no shortness of breath no cough no nausea or vomiting no chest pain no diarrhea no blood in the stools no burning with urination no frequency or urgency no hematuria On 03/24/2021 patient is confused. Per nursing staff patient will pull at lines an attempt to get out of bed. Patient currently getting hemodialysis. Potassium elevated at 65. Vascular surgery also consulted in regards to his leg. Patient remains on IV antibiotics with blood cell slightly increasing infectious disease services are following. On 03/25/2021 Patient was seen and examined on the medical floor, he is somnolent responsive in no apparent distress, he received IV Dilaudid for pain management, his son is stating that patient was holding his pelvic area with signs of pain, at this time will repeat computed tomography scan of the pelvis, I will add IV Tylenol every 6 hours when necessary and try to decrease use of narcotics. On 03/26/2021 patient remains confused. Nephrology and neurology services are following. Patient to receive hemodialysis today. CT showing no acute changes. On 03/27/2021 patient is more alert today he is confused, he answers 1 or 2 questions by yes or no and then he remains nonverbal there is no apparent distress there is no fever or chills, his temperature is 97.7 pulse 56 respirations 16 blood pressure 149/55 pulse ox 99% on 3 L nasal cannula white blood count of 13.4 hemoglobin 8.7 platelet count 310 On 03/28/2021 patient remains confused. Patient does wake up follow some commands. Patient currently on room air pulse ox 95% blood pressure 151/53 heart rate 77 and temperature 97.7. On 03/29/2021 patient is somnolent confused in no apparent distress he opened his eyes and follows some commands, there is no fever or chills, today I had a third meeting with his, care was discussed in details, I have encouraged his son to change his CODE STATUS to no code, however he declined, he stated that his father would have wanted a full code. Nutrition condition discussed in details patient is not taking any oral food or medications, possibility of NG tube and subsequently a PEG tube was discussed in details. At this time patient's son is not agreeing to any tube feeding, he is requesting IV nutrition, I explained to him that patient is not a candidate for that because he has normal gastrointestinal function, however patient's son is refusing any tube feeding at this time, I will place a consult for nutrition in regard to parenteral nutrition. On 03/30/2021 patient was seen and examined on the medical floor he is more alert today he answers 1 or 2 questions with yes or no and then he remains nonverbal, his vital exam reveals a temperature of 97.8 pulse 60 respiration 20 blood pressure 147/55 pulse ox 99% on room air laboratory data reveals a white blood count of 13.8 hemoglobin 9.3 platelet count 348 BUN 47.7 creatinine 4.4 patient had a PICC line placed today in anticipation for TPN On 03/31/2021 patient more alert today does wake up and follow some commands. Patient has been started on TPN through PICC line. Per nursing staff patient is able to take his pills will start patient on clear liquid diet and resume home dose of eliquis. Patient currently receiving hemodialysis. Temp 98, heart rate 60, blood pressure 141/50 pulse ox 99% on 4 L. On 04/01/2021 patient is doing better he is more alert and responsive today there is no fever or chills no headache or dizziness no chest pain no shortness of breath no cough no nausea or vomiting he is taking some oral intake he remains on TPN via PICC line, his vital exam reveals a temperature of 97.4 pulse 60 respiration 20 blood pressure 126/53 pulse ox 98% on 4 L nasal cannula laboratory data reveals a white blood count of 12.12 hemoglobin 9.0 platelet count 325 BUN 43 creatinine 4.0 patient is maintained on hemodialysis On 04/02/2021 patient is more alert and responsive today does answer questions. Per nursing staff Dr. Henriquez was in to assess patient awaiting discussion with son in regards to possible debridement per nursing staff. Patient currently getting hemodialysis. Patient remains on nasal cannula 4 L. White blood cell 11.47. Patient denies any chest pain or shortness breath. Patient denies nausea vomiting or diarrhea. Patient denies any urinary burning or frequency. On 04/03/2021 patient was seen and examined on the medical floor he is alert responsive in no apparent distress he answers a few questions by yes or no and then he stops answering there is no fever or chills no chest pain or shortness of breath he is still having minimal oral intake he is still maintained on TPN he is still maintained on hemodialysis, patient is also maintained on IV antibiotics and is followed by infectious disease white blood count is improving gradually. No plans for any intervention by vascular surgery at this point. Patient's son is still wanting full code and full medical management, will continue with current care, possible transfer to a [facility] for rehab in few days once white blood count normalizes. On 04/04/2021 patient is resting comfortably in bed. remains on TPN. will consult speech services to assess swallow to advance diet. Patient denies chest pain or shortness of breath. Denies nausea vomiting or diarrhea. Denies any urinary burning or frequency. Objective - Vital Signs Vital signs: Vital Signs Temp 97.9 F 04/04/21 07:46 Pulse 67 04/04/21 07:46 Resp 18 04/04/21 07:46 BP 144/55 04/04/21 07:46 Pulse Ox 97 04/04/21 07:46 Intake & Output 04/03/21 04/04/21 04/04/21 18:59 06:59 18:59 Intake Total 150 Balance 150 Weight 85.5 kg Intake: Oral 150 Other: Voiding Method Diaper Diaper Incontinent Incontinent # Voids 1 0 1 - Exam In general patient is alert and oriented x 3 in no distress HEENT head normocephalic and atraumatic Neck is supple no JVD no goiter no lymphadenopathy no carotid bruit Chest examination is clear to auscultation no crackles no wheezing Cardiac exam reveals regular heart sounds S1 and S2 no gallops no murmurs Abdomen is soft nontender no organomegaly with normal bowel sounds Extremity exam bilateral lower extremity erythema in the pretibial area right worse than left there are multiple ulcerations on the toes Neurological examination reveals no gross focal deficits - Labs CBC & Chem 7: 04/02/21 05:59 04/03/21 05:55 Labs: Abnormal Lab Results - Last 24 Hours (Table) 04/03/21 04/03/21 04/03/21 Range/Units 12:14 17:06 20:48 POC Glucose (mg/dL) 150 H 145 H 137 H (75-99) mg/dL 04/04/21 04/04/21 Range/Units 07:16 07:21 POC Glucose (mg/dL) 499 H 474 H (75-99) mg/dL Assessment and Plan Plan: Febrile illness with leukocytosis, likely related to lower extremity cellulitis, and possibly infected catheter patient has positive blood culture for gram- negative bacilli and currently he is maintained on IV cefepime, infectious disease following Bacteremia with Morganella morganii. Infectious disease services are following. CT of abdomen negative. 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 Neurology services have signed off At this time patient is admitted to medical floor Nephrology, neurology, Infectious disease vascular surgery and cardiology consultated PICC line in place with TPN speech services consulted for assessment of swallow Prognosis is guarded due to advanced medical problems with multisystem involvement
--- NOTE | 2021-04-04 11:50 | P.PN ---
Subjective Progress Note Date: 04/04/21 Principal diagnosis: [id number] male seen in consultation with ESRD, came in because of confusion gram-negative bacteremia mental status changes. He does have a permacath that h as not been changed, the bacteremia is deemed to be coming from his lower extremity necrotic wound per infectious disease Mental status has improved his appetite remains poor is on TPN. His vital signs are stable is afebrile While signs are stable, afebrile Is known with COPD, atrial fibrillation, Objective - Vital Signs Vital signs: Vital Signs Temp 97.9 F 04/04/21 07:46 Pulse 67 04/04/21 07:46 Resp 18 04/04/21 07:46 BP 144/55 04/04/21 07:46 Pulse Ox 97 04/04/21 07:46 Intake & Output 04/03/21 04/04/21 04/04/21 18:59 06:59 18:59 Intake Total 150 Balance 150 Weight 85.5 kg Intake: Oral 150 Other: Voiding Method Diaper Diaper Incontinent Incontinent # Voids 1 0 1 On examination is awake alert cooperative but profoundly weak HEENT exam no JVP neck is supple no facial asymmetry Lungs clear to auscultation but less than optimal air entry Heart sounds are unremarkable for any murmur rub gallop Abdomen soft nontender nondistended Extremity exam was trace edema Neurologically awake alert oriented but profoundly weak - Labs CBC & Chem 7: 04/02/21 05:59 04/03/21 05:55 Labs: Abnormal Lab Results - Last 24 Hours (Table) 04/03/21 04/03/21 04/03/21 Range/Units 12:14 17:06 20:48 POC Glucose (mg/dL) 150 H 145 H 137 H (75-99) mg/dL 04/04/21 04/04/21 Range/Units 07:16 07:21 POC Glucose (mg/dL) 499 H 474 H (75-99) mg/dL Assessment and Plan Assessment: Impression 1. ESRD on dialysis Monday permacath right side 2. Admitted with gram-negative bacteremia, Morganella morganii. Source necrotic wound on his right lower extremity for possibly permacath. Recent cultures have been negative 3. Cellulitis right leg with necrotic wound 4. Anemia hemoglobin was 9, 8.9 on 04/02/2021 n saturation is 31% on 03/30/2021. 5. Diabetes mellitus. 6. On peripheral TPN, poor oral intake Recommendation 1. Maintain dialysis schedule Monday, will attempt 2.5 L off 2. Continue antibiotics. 3. Monitor labs including hemoglobin
[2021-04-04 12:13] LABS: Glucose,Whole Blood 96 mg/dL (75-99)
[2021-04-04 12:27] LABS: Basophils # (A) 0.04 X 10*3/uL (0.00-0.10); Basophils % (A) 0.3 %; Eosinophils # (A) 0.16 X 10*3/uL (0.04-0.35); Eosinophils % (A) 1.3 %; HCT 26.7 % (39.6-50.0); HGB 8.1 g/dL (13.0-17.0); Lymphocytes # (A) 0.29 X 10*3/uL (0.90-5.00); Lymphocytes % (A) 2.4 %; MCH 30.8 pg (27.0-32.0); MCHC 30.3 g/dL (32.0-37.0); MCV 101.5 fL (80.0-97.0); Mean Platelet Volume 11.1 fL (9.5-12.2); Monocytes # (A) 1.46 X 10*3/uL (0.20-1.00); Monocytes % (A) 12.1 %; Neutrophils # (A) 9.58 X 10*3/uL (1.80-7.70); Neutrophils % (A) 79.6 %; Platelet Count 293 X 10*3/uL (140-440); RBC 2.63 X 10*6/uL (4.40-5.60); RDW 17.2 % (11.5-14.5); WBC 12.05 X 10*3/uL (4.50-10.00)
[2021-04-04] MEDS ORDERED: INSULIN ASPART (NovoLOG) 100 UNIT/ML VIAL SQ SCH (12:30)
[2021-04-04 13:05] LABS: African American GFR (CKD) 13.5 (60.0-200.0); Albumin 2.7 g/dL (3.8-4.9); Albumin/Globulin Ratio 1.43 (1.60-3.17); Anion Gap 11.2 mmol/L (4.00-12.00); BUN/Creat Ratio 16.36 Ratio (12.00-20.00); Blood Urea Nitrogen 72.3 mg/dL (9.0-27.0); Calcium 8.2 mg/dL (8.7-10.3); Carbon Dioxide 20.8 mmol/L (21.6-31.8); Globulin 1.9 g/dL (1.6-3.3); Non-African American GFR(CKD) 11.7 (60.0-200.0); Phosphorus 2.4 mg/dL (2.4-5.1); Potassium 4.2 mmol/L (3.5-5.5); Total Bilirubin 0.2 mg/dL (0.30-1.20); Total Protein 4.6 g/dL (6.2-8.2)
[2021-04-04] MEDS: CEFEPIME 1 GM in SODIUM CHLORIDE 0.9% 50 ML IVPB SCH (13:50)
[2021-04-04] MEDS ORDERED: SODIUM PHOSPHATE 10 MMOL in SODIUM CHLORIDE 0.9% 100 ML IVPB ONE (15:00)
[2021-04-04] MEDS: 1: MVI, ADULT NO.4 WITH VIT K 10 ML, TRACE (CONC-1ML/DOSE) 1 ML, SODIUM CHLORIDE 4MEQ/ML IV SCH ×5 (16:33)
[2021-04-04 16:55] LABS: Glucose,Whole Blood 123 mg/dL (75-99)
[2021-04-04 17:16] LABS: Glucose,Whole Blood 132 mg/dL (75-99)
[2021-04-04 21:18] LABS: Glucose,Whole Blood 160 mg/dL (75-99)
[2021-04-04] MEDS: MULTIVITAMINS, THERA 1 EACH TAB PO SCH (22:50)
[2021-04-04] MEDS: LEVOTHYROXINE 88 MCG TAB PO SCH (22:52)
[2021-04-05] MEDS: CEFEPIME 1 GM in SODIUM CHLORIDE 0.9% 50 ML IVPB SCH ×2 (00:08→13:21)
[2021-04-05] MEDS: 1: MVI, ADULT NO.4 WITH VIT K 10 ML, TRACE (CONC-1ML/DOSE) 1 ML, SODIUM CHLORIDE 4MEQ/ML IV SCH ×10 (05:35→17:34)
[2021-04-05 07:27] LABS: Glucose,Whole Blood 210 mg/dL (75-99)
[2021-04-05 07:28] LABS: Anisocytosis Slight; HCT 21.6 % (39.0-53.0); Hypochromasia Slight; MCH 32.6 pg (25.0-35.0); MCHC 32.2 g/dL (31.0-37.0); Macrocytosis Moderate; Mean Platelet Volume 9.1; Platelet Count 321 k/uL (150-450); RBC 2.14 m/uL (4.30-5.90); RDW 17.1 % (11.5-15.5); WBC 21.6 k/uL (3.8-10.6)
[2021-04-05 07:37] LABS: ALT 13 U/L (4-49); AST 17 U/L (17-59); African American GFR (CKD) 11 (>60 ml/min/1.73 sqM); Albumin 2.1 g/dL (3.5-5.0); Albumin/Globulin Ratio 0.9; Alkaline Phosphatase 50 U/L (38-126); Anion Gap 10 mmol/L; Calcium 8.4 mg/dL (8.4-10.2); Carbon Dioxide 19 mmol/L (22-30); Chloride 102 mmol/L (98-107); Globulin 2.4 g/dL; Glucose 156 mg/dL (74-99); Magnesium 2.3 mg/dL (1.6-2.3); Non-African American GFR(CKD) 9 (>60 ml/min/1.73 sqM); Phosphorus 2.4 mg/dL (2.5-4.5); Potassium 4.5 mmol/L (3.5-5.1); Sodium 131 mmol/L (137-145); Total Bilirubin 0.4 mg/dL (0.2-1.3); Total Protein 4.5 g/dL (6.3-8.2)
[2021-04-05] MEDS: DOCUSATE 100 MG CAP PO SCH (07:48)
[2021-04-05] MEDS: FERROUS SULFATE 325 MG TAB PO SCH (07:49)
[2021-04-05] MEDS: INSULIN ASPART (NovoLOG) 100 UNIT/ML VIAL SQ SCH ×4 (07:49→21:06)
[2021-04-05] MEDS: polyethylene glycoL 3350 17 GM POWD.PACK PO SCH (07:49)
[2021-04-05] MEDS: ESCITALOPRAM 10 MG TAB PO SCH (07:49)
[2021-04-05 07:56] LABS: Blood Urea Nitrogen 132 mg/dL (9-20)
--- NOTE | 2021-04-05 08:22 | PN ---
PROGRESS NOTE DATE OF SERVICE: 04/04/2021 REASON FOR FOLLOW UP: Morganella bacteremia and right leg wound with underlying skin. INTERVAL HISTORY: Patient is afebrile. The patient is currently breathing comfortably. Denies any chest pain or cough. No abdominal pain or worsening pain to the right leg. PHYSICAL EXAMINATION: Blood pressure 143/54 with a pulse of 73, temperature 98.7. He is 98% on 4 L nasal cannula. General description is an elderly male lying in bed in no distress. Respiratory system unlabored breathing, decreased intensity of breath sounds. No wheeze. Heart S1, S2. Regular rate and rhythm. Abdomen: Soft. No tenderness. Right leg is currently dressed. No obvious drainage on the dressing. LABS: Hemoglobin 8.1, white count 12.05. Repeat culture has been negative. DIAGNOSTIC IMPRESSION AND PLAN: Patient with Morganella bacteremia, right lower extremity wound, ischemic waiting for possible surgical debridement and deep culture. Patient is covered with vancomycin and cefepime and monitor clinical course closely. MMODL / IJN: [id number] /
[2021-04-05] MEDS ORDERED: FAT EMULSION 20% 500 ML in EMPTY BAG 1 BAG IV SCH (09:00)
--- NOTE | 2021-04-05 10:12 | P.PN ---
Subjective Patient is seen in follow-up for end-stage renal disease. He is maintained on hemodialysis on Monday schedule. Blood culture positive for Morganella. Repeat cultures have been negative. On IV antibiotics. Patient remains confused. hemoglobin 7.0 today. Vital signs are stable. HEENT: Head exam is unremarkable. LUNGS: Breath sounds decreased. HEART: Rate and Rhythm are regular. ABDOMEN: Soft, no distention. EXTREMITITES: Trace edema. No drainage. Objective - Vital Signs Vital signs: Vital Signs Temp 98.3 F 04/05/21 07:15 Pulse 66 04/05/21 07:15 Resp 22 04/05/21 07:15 BP 112/59 04/05/21 07:15 Pulse Ox 97 04/05/21 07:15 Intake & Output 04/04/21 04/05/21 04/05/21 18:59 06:59 18:59 Intake Total 1150 Balance 1150 Weight 86.5 kg Intake: IV 50 Cefepime 1 gm In Sodium 50 Chloride 0.9% 50 ml @ 12. 5 mls/hr IVPB Q12H [facility] Rx #:[id number] Intake, IV Titration 1100 Amount Mvi, Adult No.4 with Vit 1000 K 10 ml Trace (Conc-1Ml/ Dose) 1 ml Sodium Chloride 4Meq/ml Vial 12 meq Sodium Acetate 10 meq In Amino Acid 5%-D20w+ Lytes*E* 1,000 ml @ 80 mls/hr IV .BY DURATION [facility] Rx#:[id number] Sodium Phosphate 10 mmol 100 In Sodium Chloride 0.9% 100 ml @ 50 mls/hr IVPB ONCE ONE Rx#:[id number] Other: Voiding Method Diaper Diaper Diaper Incontinent Incontinent Incontinent # Voids 1 # Bowel Movements 4 - Labs CBC & Chem 7: 04/05/21 06:23 04/05/21 06:23 Labs: Abnormal Lab Results - Last 24 Hours (Table) 04/04/21 04/04/21 04/04/21 Range/Units 06:55 06:55 16:44 WBC 12.05 H (4.50-10.00) X 10*3/uL RBC 2.63 L (4.40-5.60) X 10*6/uL Hgb 8.1 L (13.0-17.0) g/dL Hct 26.7 L (39.6-50.0) % MCV 101.5 H (80.0-97.0) fL MCHC 30.3 L (32.0-37.0) g/dL RDW 17.2 H (11.5-14.5) % Immature Gran # 0.52 H (0.00-0.04) X 10*3/uL Neutrophils # 9.58 H (1.80-7.70) X 10*3/uL Lymphocytes # 0.29 L (0.90-5.00) X 10*3/uL Monocytes # 1.46 H (0.20-1.00) X 10*3/uL Sodium 132 L (135-145) mmol/L Carbon Dioxide 20.8 L (21.6-31.8) mmol/L BUN 72.3 H (9.0-27.0) mg/dL Creatinine 4.4 H (0.6-1.5) mg/dL Est GFR (CKD-EPI)AfAm 13.5 L (60.0-200.0) Est GFR (CKD-EPI)NonAf 11.7 L (60.0-200.0) Glucose 123 H (70-110) mg/dL POC Glucose (mg/dL) 123 H (75-99) mg/dL Calcium 8.2 L (8.7-10.3) mg/dL Phosphorus (2.5-4.5) mg/dL Total Bilirubin 0.20 L (0.30-1.20) mg/dL Total Protein 4.6 L (6.2-8.2) g/dL Albumin 2.7 L (3.8-4.9) g/dL Albumin/Globulin Ratio 1.43 L (1.60-3.17) g/dL 04/04/21 04/04/21 04/05/21 Range/Units 17:14 21:16 06:23 WBC 21.6 H (4.50-10.00) X 10*3/uL RBC 2.14 L (4.40-5.60) X 10*6/uL Hgb 7.0 L D (13.0-17.0) g/dL Hct 21.6 L (39.6-50.0) % MCV 101.0 H (80.0-97.0) fL MCHC (32.0-37.0) g/dL RDW 17.1 H (11.5-14.5) % Immature Gran # (0.00-0.04) X 10*3/uL Neutrophils # (1.80-7.70) X 10*3/uL Lymphocytes # (0.90-5.00) X 10*3/uL Monocytes # (0.20-1.00) X 10*3/uL Sodium (135-145) mmol/L Carbon Dioxide (21.6-31.8) mmol/L BUN (9.0-27.0) mg/dL Creatinine (0.6-1.5) mg/dL Est GFR (CKD-EPI)AfAm (60.0-200.0) Est GFR (CKD-EPI)NonAf (60.0-200.0) Glucose (70-110) mg/dL POC Glucose (mg/dL) 132 H 160 H (75-99) mg/dL Calcium (8.7-10.3) mg/dL Phosphorus (2.5-4.5) mg/dL Total Bilirubin (0.30-1.20) mg/dL Total Protein (6.2-8.2) g/dL Albumin (3.8-4.9) g/dL Albumin/Globulin Ratio (1.60-3.17) g/dL 04/05/21 04/05/21 Range/Units 06:23 07:26 WBC (4.50-10.00) X 10*3/uL RBC (4.40-5.60) X 10*6/uL Hgb (13.0-17.0) g/dL Hct (39.6-50.0) % MCV (80.0-97.0) fL MCHC (32.0-37.0) g/dL RDW (11.5-14.5) % Immature Gran # (0.00-0.04) X 10*3/uL Neutrophils # (1.80-7.70) X 10*3/uL Lymphocytes # (0.90-5.00) X 10*3/uL Monocytes # (0.20-1.00) X 10*3/uL Sodium 131 L (135-145) mmol/L Carbon Dioxide 19 L (21.6-31.8) mmol/L BUN 132 H* (9.0-27.0) mg/dL Creatinine 5.28 H (0.6-1.5) mg/dL Est GFR (CKD-EPI)AfAm (60.0-200.0) Est GFR (CKD-EPI)NonAf (60.0-200.0) Glucose 156 H (70-110) mg/dL POC Glucose (mg/dL) 210 H (75-99) mg/dL Calcium (8.7-10.3) mg/dL Phosphorus 2.4 L (2.5-4.5) mg/dL Total Bilirubin (0.30-1.20) mg/dL Total Protein 4.5 L (6.2-8.2) g/dL Albumin 2.1 L (3.8-4.9) g/dL Albumin/Globulin Ratio (1.60-3.17) g/dL Assessment and Plan Plan: Assessment: 1. End-stage renal disease maintained on hemodialysis on Monday schedule. 2. Morganella bacteremia on IV antibiotics. Infectious disease following. Blood cultures from the permacath negative. No acute changes noted on CT. 3. Hypertension with chronic kidney disease. Controlled. 4. Volume overload. Improved postdialysis. 5. Metabolic acidosis secondary to chronic kidney disease. 6. Anemia of chronic kidney disease. On . Concern for acute GI bleed. Stool for occult blood positive. Hemoglobin 7.0. 7. Altered mental status secondary to metabolic encephalopathy. Neurology following. Morphine discontinued. Plan: Hemodialysis today. Receiving TPN. Transfuse 1 unit of blood with dialysis today. Surgery consulted for GI bleed as well.
--- NOTE | 2021-04-05 10:45 | P.GSCN ---
<Sheryl Morin - Last Filed: 04/05/21 12:42> History of Present Illness Consult date: 04/05/21 Reason for Consult: GI bleed Requesting physician: Alexandra Mitchell History of present illness: CHIEF COMPLAINT: GI bleed, anemia HISTORY OF PRESENT ILLNESS: This is a 80-year-old male who was admitted 03/18/2021 for complaints of chest pain, fever, and weakness. Patient has been hospitalized since with infectious disease following 4Morganella actually anemia with right lower extremity wound and cellulitis. Patient also having altered mental status changes during this hospitalization with neurology following. Patient has multiple comorbidities including history of atrial fibrillation on Eliquis, coronary artery disease, vascular disease, end-stage renal disease on hemodialysis, COPD, GERD, and history of upper GI bleed. Patient currently on TPN for poor oral intake. Gen. surgery was consulted as patient had a drop in hemoglobin to 7.0 with noted loose stools yesterday evening with reported blood in the stool. On admission patient had a hemoglobin of 12.4 which has been steadily decreasing with a drop from 10.1 yesterday to 7.0. Patient had a positive stool occult blood. Currently 1 unit of PRBC transfusion as ordered. At this time patient was able to only wake up for very short periods and unable to stay awake due to drowsiness to answer questions. However nursing states that last night there was reported 2-3 loose stools with blood however she is not told if it was dark or bright red. She states patient has not complaining of any abdominal pain. He has not had any nausea or vomiting. 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 He is currently on Ahlquist for his atrial fibrillation with his last dose taken yesterday evening. His last EGD for questionable GI bleed was done by Dr. Wang on 02/28/2015 with reported findings of a small sliding hiatal hernia, gastritis and duodenitis without any active bleeding or ulcers noted. Varela is currently afebrile, patient has 4 L of nasal cannula saturation between 97 and 100%, heart rate 66 blood pressure 112/59. WBC 21.6 hemoglobin 7.0 platelet count 321,000 PAST MEDICAL HISTORY: Atrial fibrillation on Eliquis, coronary artery disease, vascular disease, end- stage renal disease of recently starting hemodialysis, COPD, GERD, thyroid disorder, history of upper GI bleed. PAST SURGICAL HISTORY: Adenoidectomy, pacemaker, tonsillectomy, hemorrhoidectomy, EGD 2015, orthopedic surgery MEDICATIONS: See list. ALLERGIES: See list. SOCIAL HISTORY: No illicit drug use. REVIEW OF SYSTEMS: CONSTITUTIONAL: Denies fever or chills. HEENT: Denies blurred vision, vision changes, or eye pain. Denies hemoptysis CARDIOVASCULAR: Denies chest pain or pressure. RESPIRATORY: No shortness of breath. GASTROINTESTINAL: Loose bowel movements, blood in stool. No reported nausea or vomiting. No reported abdominal pain. HEMATOLOGIC: Denies bleeding disorders. GENITOURINARY: Denies any blood in urine or increased urinary frequency. SKIN: Denies pruitis. Denies rash. PHYSICAL EXAM: VITAL SIGNS: Reviewed GENERAL: Well-developed in no acute distress. HEENT: No sclera icterus. Extraocular movements grossly intact. Moist buccal mucosa. Head is atraumatic, normocephalic. No nasal drainage. ABDOMEN: Soft. Obese. Nondistended. Nontender. NEUROLOGIC: Alert and oriented. Cranial nerves II through XII grossly intact. LABORATORY DATA: WBC 21.6 hemoglobin 7.0 hematocrit 21.6 platelet count 321,000 Sodium 131 potassium 4.5 magnesium 2.3 glucose 156 BUN 132 creatinine 5.28 Stool occult blood positive IMAGING: CT abdomen and pelvis without contrast 03/21/2021 showing bibasilar consolidati ve sodium pleural effusion suspicious for pneumonia. Renal vascular calcifications and a few tiny renal calcifications but no hydronephrosis. Minimal aneurysmal dilation of the abdominal aorta. No acute changes within the abdomen .as well. CT ASSESSMENT: 1. Acute GI bleed 2. Iron deficiency anemia 3. Leukocytosis, bacteremia 4. History of GI bleed with duodenal AVM (2006) 5. Atrial fibrillation on Eliquis PLAN: 1. Agree with PRBC transfusion 2. Continue to monitor hemoglobin 3. Continue to hold Eliquis 4. Avoid NSAIDs 5. Continue Protonix for GI prophylaxis 6. Continue diet as tolerated 7. Continue medical management 8. Further recommendations forthcoming per surgeon The impression and plan of care has been dictated as directed. Dr. Ba I performed a history and examination of this patient, discussed the same with the dictator. I agree with the dictator's note ,documented as a scribe. Any additional findings or plans will be noted. Past Medical History Past Medical History: Atrial Fibrillation, Blood Disorder, Heart Failure, COPD, GERD/Reflux, GI Bleed, Hypertension, Thyroid Disorder Additional Past Medical History / Comment(s): ANEMIA, HIATAL HERNIA (PER EGD) arrhythmia, skin cancer - RUE, LUE, R mandaen, Nose (sees Dr. 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 Past Anesthesia/Blood Transfusion Reactions: No Reported Reaction Additional Past Anesthesia/Blood Transfusion Reaction / Comm: Pt has received blood in past without reaction. Type of Cardiac Device: Permanent Pacemaker Device Placement Date:: 09/28/19 Past Psychological History: No Psychological Hx Reported Smoking Status: Former smoker Past Alcohol Use History: None Reported Past Drug Use History: None Reported - Past Family History Mother Family Medical History: No Reported History Additional Family Medical History / Comment(s): Mother was healthy and lived to be 97yrs old. Daughter(s) History Unknown: Yes Family Medical History: Cancer Additional Family Medical History / Comment(s): uterine/lung/brain CA - current terminal Father History Unknown: Yes Family Medical History: Cancer Additional Family Medical History / Comment(s): prostate CA - from Medications and Allergies Home Medications Medication Instructions Recorded Confirmed Type Multivitamin [Men's Multi-Vitamin] 1 tab PO HS 12/13/14 03/18/21 History Levothyroxine Sodium [Synthroid] 88 mcg PO HS 08/30/19 03/18/21 History Losartan [Cozaar] 25 mg PO HS tab 10/02/19 03/18/21 Rx Allopurinol [Zyloprim] 100 mg PO DAILY 09/25/20 03/18/21 History Apixaban [Eliquis] 2.5 mg PO BID tablet 10/19/20 03/18/21 Rx Escitalopram [Lexapro] 10 mg PO DAILY tab 10/19/20 03/18/21 Rx Furosemide [Lasix] 40 mg PO BID 30 Days #60 tablet 10/19/20 03/18/21 Rx hydrALAZINE HCL [Apresoline] 25 mg PO TID tab 10/19/20 03/18/21 Rx polyethylene glycoL 3350 [Miralax] 17 gm PO DAILY powd.pack 10/19/20 03/18/21 Rx Carvedilol [Coreg] 12.5 mg PO BID 03/18/21 03/18/21 History Docusate [Colace] 100 mg PO DAILY 03/18/21 03/18/21 History Ferrous Sulfate [Feosol] 325 mg PO DAILY 03/18/21 03/18/21 History Fluticasone Nasal Hulen [Flonase 1 - 2 spray EA NOSTRIL DAILY PRN 03/18/21 03/18/21 History Nasal Hulen] Allergies Allergy/AdvReac Type Severity Reaction Status Date / Time erythromycin base Allergy Unknown Verified 03/18/21 09:19 Sulfa (Sulfonamide Allergy Rash/Hives Verified 03/18/21 09:19 Antibiotics) Surgical - Exam Vital Signs Temp Pulse Resp BP Pulse Ox 100.2 F H 64 18 158/56 100 03/18/21 03:10 03/18/21 03:10 03/18/21 03:10 03/18/21 03:10 03/18/21 03:10 Results - Labs 04/05/21 06:23 04/05/21 06:23 Abnormal Lab Results - Last 24 Hours (Table) 04/04/21 04/04/21 04/04/21 Range/Units 06:55 06:55 16:44 WBC 12.05 H (4.50-10.00) X 10*3/uL RBC 2.63 L (4.40-5.60) X 10*6/uL Hgb 8.1 L (13.0-17.0) g/dL Hct 26.7 L (39.6-50.0) % MCV 101.5 H (80.0-97.0) fL MCHC 30.3 L (32.0-37.0) g/dL RDW 17.2 H (11.5-14.5) % Immature Gran # 0.52 H (0.00-0.04) X 10*3/uL Neutrophils # 9.58 H (1.80-7.70) X 10*3/uL Lymphocytes # 0.29 L (0.90-5.00) X 10*3/uL Monocytes # 1.46 H (0.20-1.00) X 10*3/uL Sodium 132 L (135-145) mmol/L Carbon Dioxide 20.8 L (21.6-31.8) mmol/L BUN 72.3 H (9.0-27.0) mg/dL Creatinine 4.4 H (0.6-1.5) mg/dL Est GFR (CKD-EPI)AfAm 13.5 L (60.0-200.0) Est GFR (CKD-EPI)NonAf 11.7 L (60.0-200.0) Glucose 123 H (70-110) mg/dL POC Glucose (mg/dL) 123 H (75-99) mg/dL Calcium 8.2 L (8.7-10.3) mg/dL Phosphorus (2.5-4.5) mg/dL Total Bilirubin 0.20 L (0.30-1.20) mg/dL Total Protein 4.6 L (6.2-8.2) g/dL Albumin 2.7 L (3.8-4.9) g/dL Albumin/Globulin Ratio 1.43 L (1.60-3.17) g/dL 04/04/21 04/04/21 04/05/21 Range/Units 17:14 21:16 06:23 WBC 21.6 H (4.50-10.00) X 10*3/uL RBC 2.14 L (4.40-5.60) X 10*6/uL Hgb 7.0 L D (13.0-17.0) g/dL Hct 21.6 L (39.6-50.0) % MCV 101.0 H (80.0-97.0) fL MCHC (32.0-37.0) g/dL RDW 17.1 H (11.5-14.5) % Immature Gran # (0.00-0.04) X 10*3/uL Neutrophils # (1.80-7.70) X 10*3/uL Lymphocytes # (0.90-5.00) X 10*3/uL Monocytes # (0.20-1.00) X 10*3/uL Sodium (135-145) mmol/L Carbon Dioxide (21.6-31.8) mmol/L BUN (9.0-27.0) mg/dL Creatinine (0.6-1.5) mg/dL Est GFR (CKD-EPI)AfAm (60.0-200.0) Est GFR (CKD-EPI)NonAf (60.0-200.0) Glucose (70-110) mg/dL POC Glucose (mg/dL) 132 H 160 H (75-99) mg/dL Calcium (8.7-10.3) mg/dL Phosphorus (2.5-4.5) mg/dL Total Bilirubin (0.30-1.20) mg/dL Total Protein (6.2-8.2) g/dL Albumin (3.8-4.9) g/dL Albumin/Globulin Ratio (1.60-3.17) g/dL 04/05/21 04/05/21 Range/Units 06:23 07:26 WBC (4.50-10.00) X 10*3/uL RBC (4.40-5.60) X 10*6/uL Hgb (13.0-17.0) g/dL Hct (39.6-50.0) % MCV (80.0-97.0) fL MCHC (32.0-37.0) g/dL RDW (11.5-14.5) % Immature Gran # (0.00-0.04) X 10*3/uL Neutrophils # (1.80-7.70) X 10*3/uL Lymphocytes # (0.90-5.00) X 10*3/uL Monocytes # (0.20-1.00) X 10*3/uL Sodium 131 L (135-145) mmol/L Carbon Dioxide 19 L (21.6-31.8) mmol/L BUN 132 H* (9.0-27.0) mg/dL Creatinine 5.28 H (0.6-1.5) mg/dL Est GFR (CKD-EPI)AfAm (60.0-200.0) Est GFR (CKD-EPI)NonAf (60.0-200.0) Glucose 156 H (70-110) mg/dL POC Glucose (mg/dL) 210 H (75-99) mg/dL Calcium (8.7-10.3) mg/dL Phosphorus 2.4 L (2.5-4.5) mg/dL Total Bilirubin (0.30-1.20) mg/dL Total Protein 4.5 L (6.2-8.2) g/dL Albumin 2.1 L (3.8-4.9) g/dL Albumin/Globulin Ratio (1.60-3.17) g/dL Diabetes panel 04/04/21 04/05/21 Range/Units 06:55 06:23 Sodium 132 L 131 L (135-145) mmol/L Potassium 4.2 4.5 (3.5-5.5) mmol/L Chloride 100 102 (96-109) mmol/L Carbon Dioxide 20.8 L 19 L (21.6-31.8) mmol/L BUN 72.3 H 132 H* (9.0-27.0) mg/dL Creatinine 4.4 H 5.28 H (0.6-1.5) mg/dL Glucose 123 H 156 H (70-110) mg/dL Calcium 8.2 L 8.4 (8.7-10.3) mg/dL AST 19 17 (14-35) U/L ALT 17 13 (10-49) U/L Alkaline Phosphatase 56 50 (41-126) U/L Total Protein 4.6 L 4.5 L (6.2-8.2) g/dL Albumin 2.7 L 2.1 L (3.8-4.9) g/dL Calcium panel 04/04/21 04/05/21 Range/Units 06:55 06:23 Calcium 8.2 L 8.4 (8.7-10.3) mg/dL Phosphorus 2.4 2.4 L (2.4-5.1) mg/dL Albumin 2.7 L 2.1 L (3.8-4.9) g/dL Pituitary panel 04/04/21 04/05/21 Range/Units 06:55 06:23 Sodium 132 L 131 L (135-145) mmol/L Potassium 4.2 4.5 (3.5-5.5) mmol/L Chloride 100 102 (96-109) mmol/L Carbon Dioxide 20.8 L 19 L (21.6-31.8) mmol/L BUN 72.3 H 132 H* (9.0-27.0) mg/dL Creatinine 4.4 H 5.28 H (0.6-1.5) mg/dL Glucose 123 H 156 H (70-110) mg/dL Calcium 8.2 L 8.4 (8.7-10.3) mg/dL Adrenal panel 04/04/21 04/05/21 Range/Units 06:55 06:23 Sodium 132 L 131 L (135-145) mmol/L Potassium 4.2 4.5 (3.5-5.5) mmol/L Chloride 100 102 (96-109) mmol/L Carbon Dioxide 20.8 L 19 L (21.6-31.8) mmol/L BUN 72.3 H 132 H* (9.0-27.0) mg/dL Creatinine 4.4 H 5.28 H (0.6-1.5) mg/dL Glucose 123 H 156 H (70-110) mg/dL Calcium 8.2 L 8.4 (8.7-10.3) mg/dL Total Bilirubin 0.20 L 0.4 (0.30-1.20) mg/dL AST 19 17 (14-35) U/L ALT 17 13 (10-49) U/L Alkaline Phosphatase 56 50 (41-126) U/L Total Protein 4.6 L 4.5 L (6.2-8.2) g/dL Albumin 2.7 L 2.1 L (3.8-4.9) g/dL <Rosales Ba - Last Filed: 04/05/21 13:16> History of Present Illness History of present illness: As above. Patient with bloody stools. Etiology unclear. Patient very poor risk for any interventional procedure at this time. Continue to hold anticoagulation. We'll follow with you. Surgical - Exam Vital Signs Temp Pulse Resp BP Pulse Ox 100.2 F H 64 18 158/56 100 03/18/21 03:10 03/18/21 03:10 03/18/21 03:10 03/18/21 03:10 03/18/21 03:10 Results - Labs 04/05/21 06:23 04/05/21 06:23 Abnormal Lab Results - Last 24 Hours (Table) 04/04/21 04/04/21 04/04/21 Range/Units 16:44 17:14 21:16 WBC (3.8-10.6) k/uL RBC (4.30-5.90) m/uL Hgb (13.0-17.5) gm/dL Hct (39.0-53.0) % MCV (80.0-100.0) fL RDW (11.5-15.5) % Neutrophils # (Manual) (1.3-7.7) k/uL Lymphocytes # (Manual) (1.0-4.8) k/uL Monocytes # (Manual) (0-1.0) k/uL Metamyelocytes # (Man) (0) k/uL Myelocytes # (Manual) (0) k/uL Sodium (137-145) mmol/L Carbon Dioxide (22-30) mmol/L BUN (9-20) mg/dL Creatinine (0.66-1.25) mg/dL Glucose (74-99) mg/dL POC Glucose (mg/dL) 123 H 132 H 160 H (75-99) mg/dL Phosphorus (2.5-4.5) mg/dL Total Protein (6.3-8.2) g/dL Albumin (3.5-5.0) g/dL Crossmatch 04/05/21 04/05/21 04/05/21 Range/Units 06:23 06:23 07:26 WBC 21.6 H (3.8-10.6) k/uL RBC 2.14 L (4.30-5.90) m/uL Hgb 7.0 L D (13.0-17.5) gm/dL Hct 21.6 L (39.0-53.0) % MCV 101.0 H (80.0-100.0) fL RDW 17.1 H (11.5-15.5) % Neutrophils # (Manual) 17.90 H (1.3-7.7) k/uL Lymphocytes # (Manual) 0.65 L (1.0-4.8) k/uL Monocytes # (Manual) 2.59 H (0-1.0) k/uL Metamyelocytes # (Man) 0.22 H (0) k/uL Myelocytes # (Manual) 0.43 H (0) k/uL Sodium 131 L (137-145) mmol/L Carbon Dioxide 19 L (22-30) mmol/L BUN 132 H* (9-20) mg/dL Creatinine 5.28 H (0.66-1.25) mg/dL Glucose 156 H (74-99) mg/dL POC Glucose (mg/dL) 210 H (75-99) mg/dL Phosphorus 2.4 L (2.5-4.5) mg/dL Total Protein 4.5 L (6.3-8.2) g/dL Albumin 2.1 L (3.5-5.0) g/dL Crossmatch 04/05/21 04/05/21 04/05/21 Range/Units 09:15 11:30 12:09 WBC (3.8-10.6) k/uL RBC (4.30-5.90) m/uL Hgb (13.0-17.5) gm/dL Hct (39.0-53.0) % MCV (80.0-100.0) fL RDW (11.5-15.5) % Neutrophils # (Manual) (1.3-7.7) k/uL Lymphocytes # (Manual) (1.0-4.8) k/uL Monocytes # (Manual) (0-1.0) k/uL Metamyelocytes # (Man) (0) k/uL Myelocytes # (Manual) (0) k/uL Sodium (137-145) mmol/L Carbon Dioxide (22-30) mmol/L BUN (9-20) mg/dL Creatinine (0.66-1.25) mg/dL Glucose (74-99) mg/dL POC Glucose (mg/dL) 172 H (75-99) mg/dL Phosphorus (2.5-4.5) mg/dL Total Protein (6.3-8.2) g/dL Albumin (3.5-5.0) g/dL Crossmatch See Detail See Detail Diabetes panel 04/05/21 Range/Units 06:23 Sodium 131 L (137-145) mmol/L Potassium 4.5 (3.5-5.1) mmol/L Chloride 102 (98-107) mmol/L Carbon Dioxide 19 L (22-30) mmol/L BUN 132 H* (9-20) mg/dL Creatinine 5.28 H (0.66-1.25) mg/dL Glucose 156 H (74-99) mg/dL Calcium 8.4 (8.4-10.2) mg/dL AST 17 (17-59) U/L ALT 13 (4-49) U/L Alkaline Phosphatase 50 (38-126) U/L Total Protein 4.5 L (6.3-8.2) g/dL Albumin 2.1 L (3.5-5.0) g/dL Calcium panel 04/05/21 Range/Units 06:23 Calcium 8.4 (8.4-10.2) mg/dL Phosphorus 2.4 L (2.5-4.5) mg/dL Albumin 2.1 L (3.5-5.0) g/dL Pituitary panel 04/05/21 Range/Units 06:23 Sodium 131 L (137-145) mmol/L Potassium 4.5 (3.5-5.1) mmol/L Chloride 102 (98-107) mmol/L Carbon Dioxide 19 L (22-30) mmol/L BUN 132 H* (9-20) mg/dL Creatinine 5.28 H (0.66-1.25) mg/dL Glucose 156 H (74-99) mg/dL Calcium 8.4 (8.4-10.2) mg/dL Adrenal panel 04/05/21 Range/Units 06:23 Sodium 131 L (137-145) mmol/L Potassium 4.5 (3.5-5.1) mmol/L Chloride 102 (98-107) mmol/L Carbon Dioxide 19 L (22-30) mmol/L BUN 132 H* (9-20) mg/dL Creatinine 5.28 H (0.66-1.25) mg/dL Glucose 156 H (74-99) mg/dL Calcium 8.4 (8.4-10.2) mg/dL Total Bilirubin 0.4 (0.2-1.3) mg/dL AST 17 (17-59) U/L ALT 13 (4-49) U/L Alkaline Phosphatase 50 (38-126) U/L Total Protein 4.5 L (6.3-8.2) g/dL Albumin 2.1 L (3.5-5.0) g/dL
[2021-04-05 11:34] LABS: Band Neutrophils % 2 %; Eosinophils # (M) 0.22 k/uL (0-0.7); Lymphocytes # (M) 0.65 k/uL (1.0-4.8); Metamyelocytes # (M) 0.22 k/uL (0); Metamyelocytes % 1 %; Monocytes # (M) 2.59 k/uL (0-1.0); Myelocytes # (M) 0.43 k/uL (0); Myelocytes % 2 %; Neutrophils % (M) 81 %; Nucleated Red Blood Cells 0 /100 WBC (0-0); Total Cells Counted 200
[2021-04-05 12:10] LABS: Glucose,Whole Blood 172 mg/dL (75-99)
[2021-04-05 12:14] VITALS: PULSE 60
--- NOTE | 2021-04-05 13:10 | P.PN ---
Subjective Progress Note Date: 04/05/21 Sean Lin, is an 80-year-old male who presented to [facility] emergency room with a chief complaint of weakness and febrile illness He was evaluated in the emergency room vital examination on presentation revealed a temperature of 100.2 pulse 64 respiration 18 blood pressure 158/56 p ulse ox 100% on 2 L nasal cannula Laboratory data revealed a white blood count of 15.6 hemoglobin 12.4 platelet count 323 sodium 136 potassium 4.5 BUN 31 creatinine 2.4 to Testing in the emergency room revealed chest x-ray revealed evidence of cardiomegaly otherwise no active cardiopulmonary disease, EKG revealed ventricular paced rhythm Patient was admitted to medical floor for further evaluation and treatment Past medical history is significant for end-stage renal disease on hemodialysis, chronic systolic congestive heart failure, history of cardiac arrhythmia status post biventricular pacemaker implant, underlying history of COPD, underlying history of paroxysmal atrial fibrillation, underlying history of coronary artery disease, underlying history of peripheral arterial disease On review of systems patient is alert and oriented 3 in no apparent distress he is complaining of fever and some chills, he is also complaining of right lower extremity pain otherwise he denies any complaints there is no headache or dizziness no chest pain no shortness of breath no cough no nausea or vomiting no abdominal pain no diarrhea no blood in the stools no burning with urination no frequency or urgency and no hematuria On 03/19/2021 patient is alert and oriented 3. Patient remains on IV Maxipime for cellulitis. Patient reports he does feel significantly improved. Nephrology services following patient to receive hemodialysis today. Vascular surgery and infectious disease services also consulted. At this time patient denies chest pain or shortness breath. Patient denies nausea vomiting or diarrhea. Patient denies any urinary burning or frequency. On 03/20/2021 Patient was seen and examined on the medical floor, he is alert and oriented x 3 in no distress, he denies any complaints there is no fever or chills no headache or dizziness no chest pain no shortness of breath no palpitation no cough no nausea or vomiting no abdominal pain no diarrhea no blood in the stools no burning with urination no frequency or urgency and no hematuria, there is no weakness or numbness in any of the extremities no change in vision speech or gait. Patient was evaluated by nephrology and is continued on hemodialysis, he was also evaluated by infectious disease and is currently maintained on IV cefepime, he was evaluated by vascular surgery and no recommendation for any intervention at this time. On 03/21/2021 patient alert and oriented 3 currently eating breakfast. Blood culture positive for Morganella morganii. Per infectious disease likely source urine or abdomen. Urine is clean. CT of abdomen has been ordered per infectious disease. Patient remains on IV antibiotics for lower infection of any cellulitis. Current white blood cell 13.17. Social work PT and OT also c onsulted for discharge planning. Per nursing staff patient is very weak will likely require ECF facility upon discharge. On 03/22/2021 patient alert and oriented 3. Patient remains on IV antibiotics. labs Currently pending rate currently 97.6, heart rate 62, blood pressure 121/55 and patient oxygen saturation 96% on room air. Patient denies chest pain or shortness breath. Patient denies nausea vomiting or diarrhea. Patient denies any urinary burning or frequency. On 03/23/2021 patient is still complaining of lower extremity pain otherwise he states he is improving there is no fever or chills no headache or dizziness no chest pain no shortness of breath no cough no nausea or vomiting no chest pain no diarrhea no blood in the stools no burning with urination no frequency or urgency no hematuria On 03/24/2021 patient is confused. Per nursing staff patient will pull at lines an attempt to get out of bed. Patient currently getting hemodialysis. Potassium elevated at 65. Vascular surgery also consulted in regards to his leg. Patient remains on IV antibiotics with blood cell slightly increasing infectious disease services are following. On 03/25/2021 Patient was seen and examined on the medical floor, he is somnolent responsive in no apparent distress, he received IV Dilaudid for pain management, his son is stating that patient was holding his pelvic area with signs of pain, at this time will repeat computed tomography scan of the pelvis, I will add IV Tylenol every 6 hours when necessary and try to decrease use of narcotics. On 03/26/2021 patient remains confused. Nephrology and neurology services are following. Patient to receive hemodialysis today. CT showing no acute changes. On 03/27/2021 patient is more alert today he is confused, he answers 1 or 2 questions by yes or no and then he remains nonverbal there is no apparent distress there is no fever or chills, his temperature is 97.7 pulse 56 respirations 16 blood pressure 149/55 pulse ox 99% on 3 L nasal cannula white blood count of 13.4 hemoglobin 8.7 platelet count 310 On 03/28/2021 patient remains confused. Patient does wake up follow some commands. Patient currently on room air pulse ox 95% blood pressure 151/53 heart rate 77 and temperature 97.7. On 03/29/2021 patient is somnolent confused in no apparent distress he opened his eyes and follows some commands, there is no fever or chills, today I had a third meeting with his, care was discussed in details, I have encouraged his son to change his CODE STATUS to no code, however he declined, he stated that his father would have wanted a full code. Nutrition condition discussed in details patient is not taking any oral food or medications, possibility of NG tube and subsequently a PEG tube was discussed in details. At this time patient's son is not agreeing to any tube feeding, he is requesting IV nutrition, I explained to him that patient is not a candidate for that because he has normal gastrointestinal function, however patient's son is refusing any tube feeding at this time, I will place a consult for nutrition in regard to parenteral nutrition. On 03/30/2021 patient was seen and examined on the medical floor he is more alert today he answers 1 or 2 questions with yes or no and then he remains nonverbal, his vital exam reveals a temperature of 97.8 pulse 60 respiration 20 blood pressure 147/55 pulse ox 99% on room air laboratory data reveals a white blood count of 13.8 hemoglobin 9.3 platelet count 348 BUN 47.7 creatinine 4.4 patient had a PICC line placed today in anticipation for TPN On 03/31/2021 patient more alert today does wake up and follow some commands. Patient has been started on TPN through PICC line. Per nursing staff patient is able to take his pills will start patient on clear liquid diet and resume home dose of eliquis. Patient currently receiving hemodialysis. Temp 98, heart rate 60, blood pressure 141/50 pulse ox 99% on 4 L. On 04/01/2021 patient is doing better he is more alert and responsive today there is no fever or chills no headache or dizziness no chest pain no shortness of breath no cough no nausea or vomiting he is taking some oral intake he remains on TPN via PICC line, his vital exam reveals a temperature of 97.4 pulse 60 respiration 20 blood pressure 126/53 pulse ox 98% on 4 L nasal cannula laboratory data reveals a white blood count of 12.12 hemoglobin 9.0 platelet count 325 BUN 43 creatinine 4.0 patient is maintained on hemodialysis On 04/02/2021 patient is more alert and responsive today does answer questions. Per nursing staff Dr. Henriquez was in to assess patient awaiting discussion with son in regards to possible debridement per nursing staff. Patient currently getting hemodialysis. Patient remains on nasal cannula 4 L. White blood cell 11.47. Patient denies any chest pain or shortness breath. Patient denies nausea vomiting or diarrhea. Patient denies any urinary burning or frequency. On 04/03/2021 patient was seen and examined on the medical floor he is alert responsive in no apparent distress he answers a few questions by yes or no and then he stops answering there is no fever or chills no chest pain or shortness of breath he is still having minimal oral intake he is still maintained on TPN he is still maintained on hemodialysis, patient is also maintained on IV antibiotics and is followed by infectious disease white blood count is improving gradually. No plans for any intervention by vascular surgery at this point. Patient's son is still wanting full code and full medical management, will continue with current care, possible transfer to a fpc for rehab in few days once white blood count normalizes. On 04/04/2021 patient is resting comfortably in bed. remains on TPN. will consult speech services to assess swallow to advance diet. Patient denies chest pain or shortness of breath. Denies nausea vomiting or diarrhea. Denies any urinary burning or frequency. On 04/05/2021 patient was seen and examined on the medical floor he is alert responsive but returns to sleep within a short period of time he answers a few questions by yes or no and then closes his eyes again. This morning patient had a large dark bowel movement that was heme positive. Hemoglobin this morning is down to 7.0. At this time and liquids was discontinued patient will receive 1 unit of red blood cell transfusion with hemodialysis today. He is maintained on IV Protonix. Surgical consultation was requested with Dr. Ba for gastro- intestinal workup, otherwise patient remains on TPN , and IV antibiotics , no other issues identified at this time. Objective - Vital Signs Vital signs: Vital Signs Temp 97.7 F 04/05/21 12:12 Pulse 60 04/05/21 12:12 Resp 19 04/05/21 12:12 BP 117/60 04/05/21 12:12 Pulse Ox 97 04/05/21 07:15 Intake & Output 04/04/21 04/05/21 04/05/21 18:59 06:59 18:59 Intake Total 1150 300 Output Total 1600 Balance 1150 -1300 Weight 86.5 kg Intake: IV 50 Cefepime 1 gm In Sodium 50 Chloride 0.9% 50 ml @ 12. 5 mls/hr IVPB Q12H [facility] Rx #:[id number] Intake, IV Titration 1100 Amount Mvi, Adult No.4 with Vit 1000 K 10 ml Trace (Conc-1Ml/ Dose) 1 ml Sodium Chloride 4Meq/ml Vial 12 meq Sodium Acetate 10 meq In Amino Acid 5%-D20w+ Lytes*E* 1,000 ml @ 80 mls/hr IV .BY DURATION [facility] Rx#:[id number] Sodium Phosphate 10 mmol 100 In Sodium Chloride 0.9% 100 ml @ 50 mls/hr IVPB ONCE ONE Rx#:[id number] Hemodialysis 300 Output: Hemodialysis 1600 Other: Voiding Method Diaper Diaper Diaper Incontinent Incontinent Incontinent # Voids 1 # Bowel Movements 4 - Exam In general patient is alert and oriented x 3 in no distress HEENT head normocephalic and atraumatic Neck is supple no JVD no goiter no lymphadenopathy no carotid bruit Chest examination is clear to auscultation no crackles no wheezing Cardiac exam reveals regular heart sounds S1 and S2 no gallops no murmurs Abdomen is soft nontender no organomegaly with normal bowel sounds Extremity exam bilateral lower extremity erythema in the pretibial area right worse than left there are multiple ulcerations on the toes Neurological examination reveals no gross focal deficits - Labs CBC & Chem 7: 04/05/21 06:23 04/05/21 06:23 Labs: Abnormal Lab Results - Last 24 Hours (Table) 04/04/21 04/04/21 04/04/21 Range/Units 06:55 16:44 17:14 WBC (3.8-10.6) k/uL RBC (4.30-5.90) m/uL Hgb (13.0-17.5) gm/dL Hct (39.0-53.0) % MCV (80.0-100.0) fL RDW (11.5-15.5) % Neutrophils # (Manual) (1.3-7.7) k/uL Lymphocytes # (Manual) (1.0-4.8) k/uL Monocytes # (Manual) (0-1.0) k/uL Metamyelocytes # (Man) (0) k/uL Myelocytes # (Manual) (0) k/uL Sodium 132 L (135-145) mmol/L Carbon Dioxide 20.8 L (21.6-31.8) mmol/L BUN 72.3 H (9.0-27.0) mg/dL Creatinine 4.4 H (0.6-1.5) mg/dL Est GFR (CKD-EPI)AfAm 13.5 L (60.0-200.0) Est GFR (CKD-EPI)NonAf 11.7 L (60.0-200.0) Glucose 123 H (70-110) mg/dL POC Glucose (mg/dL) 123 H 132 H (75-99) mg/dL Calcium 8.2 L (8.7-10.3) mg/dL Phosphorus (2.5-4.5) mg/dL Total Bilirubin 0.20 L (0.30-1.20) mg/dL Total Protein 4.6 L (6.2-8.2) g/dL Albumin 2.7 L (3.8-4.9) g/dL Albumin/Globulin Ratio 1.43 L (1.60-3.17) g/dL Crossmatch 04/04/21 04/05/21 04/05/21 Range/Units 21:16 06:23 06:23 WBC 21.6 H (3.8-10.6) k/uL RBC 2.14 L (4.30-5.90) m/uL Hgb 7.0 L D (13.0-17.5) gm/dL Hct 21.6 L (39.0-53.0) % MCV 101.0 H (80.0-100.0) fL RDW 17.1 H (11.5-15.5) % Neutrophils # (Manual) 17.90 H (1.3-7.7) k/uL Lymphocytes # (Manual) 0.65 L (1.0-4.8) k/uL Monocytes # (Manual) 2.59 H (0-1.0) k/uL Metamyelocytes # (Man) 0.22 H (0) k/uL Myelocytes # (Manual) 0.43 H (0) k/uL Sodium 131 L (135-145) mmol/L Carbon Dioxide 19 L (21.6-31.8) mmol/L BUN 132 H* (9.0-27.0) mg/dL Creatinine 5.28 H (0.6-1.5) mg/dL Est GFR (CKD-EPI)AfAm (60.0-200.0) Est GFR (CKD-EPI)NonAf (60.0-200.0) Glucose 156 H (70-110) mg/dL POC Glucose (mg/dL) 160 H (75-99) mg/dL Calcium (8.7-10.3) mg/dL Phosphorus 2.4 L (2.5-4.5) mg/dL Total Bilirubin (0.30-1.20) mg/dL Total Protein 4.5 L (6.2-8.2) g/dL Albumin 2.1 L (3.8-4.9) g/dL Albumin/Globulin Ratio (1.60-3.17) g/dL Crossmatch 04/05/21 04/05/21 04/05/21 Range/Units 07:26 09:15 12:09 WBC (3.8-10.6) k/uL RBC (4.30-5.90) m/uL Hgb (13.0-17.5) gm/dL Hct (39.0-53.0) % MCV (80.0-100.0) fL RDW (11.5-15.5) % Neutrophils # (Manual) (1.3-7.7) k/uL Lymphocytes # (Manual) (1.0-4.8) k/uL Monocytes # (Manual) (0-1.0) k/uL Metamyelocytes # (Man) (0) k/uL Myelocytes # (Manual) (0) k/uL Sodium (135-145) mmol/L Carbon Dioxide (21.6-31.8) mmol/L BUN (9.0-27.0) mg/dL Creatinine (0.6-1.5) mg/dL Est GFR (CKD-EPI)AfAm (60.0-200.0) Est GFR (CKD-EPI)NonAf (60.0-200.0) Glucose (70-110) mg/dL POC Glucose (mg/dL) 210 H 172 H (75-99) mg/dL Calcium (8.7-10.3) mg/dL Phosphorus (2.5-4.5) mg/dL Total Bilirubin (0.30-1.20) mg/dL Total Protein (6.2-8.2) g/dL Albumin (3.8-4.9) g/dL Albumin/Globulin Ratio (1.60-3.17) g/dL Crossmatch See Detail Assessment and Plan Plan: Febrile illness with leukocytosis, likely related to lower extremity cellulitis, and possibly infected catheter patient has positive blood culture for gram- negative bacilli and currently he is maintained on IV cefepime, infectious disease following Bacteremia with Morganella morganii. Infectious disease services are following. CT of abdomen negative. 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 Neurology services have signed off At this time patient is admitted to medical floor Nephrology, neurology, Infectious disease vascular surgery and cardiology consultated PICC line in place with TPN speech services consulted for assessment of swallow Prognosis is guarded due to advanced medical problems with multisystem involvement
[2021-04-05 13:18] VITALS: BMI 28.1
[2021-04-05] MEDS: hydrALAZINE HCL 25 MG TAB PO SCH ×3 (13:39→19:52)
[2021-04-05] MEDS: carvediloL 12.5 MG TAB PO SCH ×2 (13:39→17:33)
[2021-04-05 14:20] VITALS: TEMP 98.2
--- NOTE | 2021-04-05 14:37 | PN ---
PROGRESS NOTE DATE OF SERVICE: 04/05/2021 REASON FOR FOLLOWUP: Morganella bacteremia right leg wound cellulitis. INTERVAL HISTORY: Patient is currently afebrile. The patient is undergoing dialysis. He is hemodynamically stable. No vomiting, diarrhea or any other changes reported by the nursing staff. Patient did not provide any reliable history. PHYSICAL EXAMINATION: Blood pressure 117/60 with a pulse of 50, temperature 97.7. General description is an elderly male lying in bed in no distress. Respiratory system: Unlabored breathing, clear to auscultation anteriorly. Heart S1, S2. Regular rate and rhythm. Abdomen soft, no tenderness. Right leg wound is currently dressed. No obvious drainage on the dressing. LABS: Hemoglobin is 10, white count 21.6, creatinine is 5.28. DIAGNOSTIC IMPRESSION AND PLAN: Patient with right leg wound in this patient who did have evidence of bacteremia. Patient is broadly covered with cefepime and Vanco. White count did have slight worsening. Cultures will be repeated and antibiotic adjusted if needed. Continue supportive care. MMODL / IJN: [id number] /
[2021-04-05] MEDS ORDERED: 1: MVI, ADULT NO.4 WITH VIT K 10 ML, TRACE (CONC-1ML/DOSE) 1 ML, SODIUM ACETATE 20 MEQ i IV SCH ×4 (17:00)
[2021-04-05 17:25] LABS: Glucose,Whole Blood 134 mg/dL (75-99)
--- NOTE | 2021-04-05 19:52 | PCN ---
PROCEDURE NOTE PREOPERATIVE DIAGNOSIS: Acute on chronic renal failure. Wound, right lower leg, lateral aspect with scab formation. POSTOPERATIVE DIAGNOSIS: Acute on chronic renal failure. Wound, right lower leg, lateral aspect with scab formation. Rule out calciphylaxis. This patient has a history of chronic renal failure. No history of trauma. The patient developed a wound on the lateral aspect of his right leg with scab formation noted. Wound was cleaned with alcohol swab and 1% lidocaine was infiltrated. Biopsy of the wound was taken. Tissue was sent to Pathology to rule out calciphylaxis. Dressing was applied. Patient tolerated the procedure well. MMODL / IJN: [id number] /
[2021-04-05 20:51] LABS: Glucose,Whole Blood 158 mg/dL (75-99)
[2021-04-05] MEDS: MULTIVITAMINS, THERA 1 EACH TAB PO SCH (21:07)
[2021-04-05] MEDS: LEVOTHYROXINE 88 MCG TAB PO SCH (21:07)
[2021-04-05 21:19] VITALS: BP 95/56; RESP 26
[2021-04-05] MEDS ORDERED: SODIUM BICARB 8.4% 50 ML SYR (1 MEQ/ML) ONE (23:00)
[2021-04-05] MEDS ORDERED: SODIUM CHLORIDE 0.9% 1,000 ML BAG ONE (23:00)
[2021-04-05] MEDS ORDERED: EPINEPHrine 10 ML SYRINGE (0.1 MG/ML) ONE (23:00)
[2021-04-05 23:04] LABS: Glucose,Whole Blood 175 mg/dL (75-99)
--- NOTE | 2021-04-06 02:15 | P.EN ---
Code Blue note Activated at 2300. Arrived on the scene shortly after. Reviewed chart in detail and discussed the case with the RN. The patient was reported to have gradually worsening mentation throughout the day and had recently undergone hemodialysis for kidney failure. The patient was found by the RN to be unresponsive and pulseless in the room. ACLS protocol was immediately started with high quality CPR. Upon arrival at the scene, patient was noted to be in PEA. Throughout the code, the patient was given epinephrine IV push 7 and sodium bicarbonate IV push 3. Multiple attempts were made to contact the family with no avail. The patient remained in PEA or asystole throughout the code. He was subsequently pronounced at 2325. The primary team was notified. Please refer to the code sheet for further details. Total time spent providing critical care for this patient: 35 minutes
[2021-04-06] MEDS ORDERED: PANTOPRAZOLE 40 MG/10 ML VIAL IVP SCH (09:00)
--- NOTE | 2021-04-07 18:27 | CDI ---
Documentation Clarification Form Mortality Review Date: 04/07/2021 06:08:41 PM From: Mita Keys RN, CCDS Admit Date: 03/19/2021 12:23:00 PM Patient Name: Sean Lin Visit Number: [id number] Discharge Date: 04/05/2021 11:25:00 PM ATTENTION: The Clinical Documentation Specialists (CDI) and [facility] Coding Staff appreciate your assistance in clarifying documentation. Please respond to the clarification below the line at the bottom and electronically sign. The CDI & [facility] Coding staff will review the response and follow-up if needed. Please note: Queries are made part of the Legal Health Record. If you have any questions, please contact the author of this message via ITS. Dr. Alexandra Mitchell There is documentation of Rule Out Calciphylaxis." Additional clarification is requested as to if condition was ruled in or out. History/Risk Factors: Skin Ulcers, Chronic Lower Extremity Ulcers, AVM with GIB, HTN, Hypothyroid, ESRD, PVD, CKD mineral bone disorder Clinical Indicators: 04/03 Vascular Consult: "Since patient has history of 4 renal failure and on dialysis I will elect to rule out caiciphylaaxis we will send tissue for rule out calciphylaxis." 04/05 Procedure Note: "Rule out calciphylaxis.Tissue was sent to Pathology to rule out calciphylaxis." 04/05 Right Leg Tissue Culture: "Staphylococcus species" Treatment: 04/05 Right lower leg wound biopsy Can you please clarify Calciphylaxis was ruled in or out? [x ] Calciphylaxis ruled in [ ] Calciphylaxis ruled out [ ] Other, please specify [ ] Unable to determine (Template Last Revised: July 2020) MTDD
--- NOTE | 2021-04-07 18:53 | CDI ---
Documentation Clarification Form Mortality Review Date: 04/07/2021 06:28:23 PM From: Mita Keys RN, CCDS Admit Date: 03/19/2021 12:23:00 PM Patient Name: Sean Lin Visit Number: [id number] Discharge Date: 04/05/2021 11:25:00 PM ATTENTION: The Clinical Documentation Specialists (CDI) and [facility] Coding Staff appreciate your assistance in clarifying documentation. Please respond to the clarification below the line at the bottom and electronically sign. The CDI & [facility] Coding staff will review the response and follow-up if needed. Please note: Queries are made part of the Legal Health Record. If you have any questions, please contact the author of this message via ITS. Dr. Alexandra Mitchell Possible Pneumonia is documented in the 03/21 & 03/22 ID Progress Note. Additional clarification regarding the type of pneumonia is requested. History/Risk Factors: ESRD on HD, Chronic Diastolic CHF, COPD, GERD, Hiatal Hernia Clinical Indicators: 03/21 ID Progress note: blood cultures from the catheter has been negative with CT of abdomen and pelvis raising the possibility of pneumonia, even though he does not have significant respiratory symptoms." 03/25 ID: "Did have extensive workup and there is a possibility of pneumonia." 04/02 Nephrology Progress Note: "Possible pneumonia, maintained on antibiotics." 04/05 Vascular Consult: "IMAGING: CT abdomen and pelvis without contrast 03/21/2021 showing bibasilar consolidative sodium pleural effusion suspicious for pneumonia." 03/18-04/05 WBC:15.6/15.8/13.73/13.17/12.55/13.9/12.86/13.8/13.45/14.79/13.86/13.3/12.12 Left shift:14.5/13.78/11.56/11.38/10.86/12.5/11.45/12.1/11.84/1.6/9.56/9.58/17.9 03/26 CXR: "Bilateral lower lung zone patchy airspace disease." 03/21 Attending Lung/Breathing assessment: "Chest examination is clear to auscultation no crackles no wheezing." Treatment: 04/01-04/03 IV Vancomycin 1500mg IVPB QD 03/18 1L 0.9% NS IVF Bolus followed by 130 cc/hr. 04/07 IV Ceftriaxone 2 gm OT 03/18-04/05 IV Cefepime 2gm IVPB OT followed by 1 GM IVPB Q 12 hrs. 03/18 IV cefazolin 1000mg IVPB OT 03/18-04/02 Duoneb INH QID O2: 2-5L NC Please clarify if the pneumonia was ruled in or out. [ ] Pneumonia ruled in (please specify type below, if know) [ ] Aspiration Pneumonia, Due to food or vomitus [ ] Bacterial Pneumonia, specify causal organism (if known) [ ] Gram Negative Bacterial Pneumonia [ ] Bacterial Pneumonia Due to Staph [ ] Other, please specify [x ] Unable to determine [ ] Pneumonia ruled out [ ] Other, please specify [ ] Unable to determine (Template Last Revised: July 2020) MTDD
--- NOTE | 2021-04-11 09:25 | P.DS ---
Providers Date of admission: 03/19/21 12:23 Expected date of discharge: 04/05/21 Attending physician: Alexandra Mitchell Consults: 03/18/21 06:32 Consult Physician Routine Consulting Provider: Lorin Shearer Consult Reason/Comments: HD Do you want consulting provider notified?: Yes 03/18/21 15:21 Consult Physician Routine Consulting Provider: Naya Paiz Consult Reason/Comments: lower extremity cellulitis Do you want consulting provider notified?: Yes 03/23/21 16:59 Consult Physician Routine Consulting Provider: Aric Henriquez Consult Reason/Comments: lower extremity pad Do you want consulting provider notified?: Yes 03/24/21 12:27 Consult Physician Routine Consulting Provider: Ish Deshpande Consult Reason/Comments: altered mental status changes Do you want consulting provider notified?: Yes 04/05/21 09:18 Consult Physician Routine Consulting Provider: Rosales Ba Consult Reason/Comments: GI BLEED Do you want consulting provider notified?: Yes Primary care physician: Alexandra Mitchell [facility] Course: discharge Diagnosis Febrile illness with leukocytosis, likely related to lower extremity cellulitis, and possibly infected catheter patient has positive blood culture for gram- negative bacilli and currently he is maintained on IV cefepime, infectious disease following Bacteremia with Morganella morganii. Infectious disease services are following. CT of abdomen negative. 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 Neurology services have signed off Hospital Course Sean Lin, is an 80-year-old male who presented to [facility] emergency room with a chief complaint of weakness and febrile illness He was evaluated in the emergency room vital examination on presentation revealed a temperature of 100.2 pulse 64 respiration 18 blood pressure 158/56 pulse ox 100% on 2 L nasal cannula Laboratory data revealed a white blood count of 15.6 hemoglobin 12.4 platelet count 323 sodium 136 potassium 4.5 BUN 31 creatinine 2.4 to Testing in the emergency room revealed chest x-ray revealed evidence of cardiomegaly otherwise no active cardiopulmonary disease, EKG revealed v entricular paced rhythm Patient was admitted to medical floor for further evaluation and treatment Past medical history is significant for end-stage renal disease on hemodialysis, chronic systolic congestive heart failure, history of cardiac arrhythmia status post biventricular pacemaker implant, underlying history of COPD, underlying history of paroxysmal atrial fibrillation, underlying history of coronary artery disease, underlying history of peripheral arterial disease On review of systems patient is alert and oriented 3 in no apparent distress he is complaining of fever and some chills, he is also complaining of right lower extremity pain otherwise he denies any complaints there is no headache or dizziness no chest pain no shortness of breath no cough no nausea or vomiting no abdominal pain no diarrhea no blood in the stools no burning with urination no frequency or urgency and no hematuria On 03/19/2021 patient is alert and oriented 3. Patient remains on IV Maxipime for cellulitis. Patient reports he does feel significantly improved. Nephrology services following patient to receive hemodialysis today. Vascular surgery and infectious disease services also consulted. At this time patient denies chest pain or shortness breath. Patient denies nausea vomiting or diarrhea. Patient denies any urinary burning or frequency. On 03/20/2021 Patient was seen and examined on the medical floor, he is alert and oriented x 3 in no distress, he denies any complaints there is no fever or chills no headache or dizziness no chest pain no shortness of breath no palpitation no cough no nausea or vomiting no abdominal pain no diarrhea no blood in the stools no burning with urination no frequency or urgency and no hematuria, there is no weakness or numbness in any of the extremities no change in vision speech or gait. Patient was evaluated by nephrology and is continued on hemodialysis, he was also evaluated by infectious disease and is currently maintained on IV cefepime, he was evaluated by vascular surgery and no recommendation for any intervention at this time. On 03/21/2021 patient alert and oriented 3 currently eating breakfast. Blood culture positive for Morganella morganii. Per infectious disease likely source urine or abdomen. Urine is clean. CT of abdomen has been ordered per infectious disease. Patient remains on IV antibiotics for lower infection of any cellulitis. Current white blood cell 13.17. Social work PT and OT also consulted for discharge planning. Per nursing staff patient is very weak will likely require ECF facility upon discharge. On 03/22/2021 patient alert and oriented 3. Patient remains on IV antibiotics. labs Currently pending rate currently 97.6, heart rate 62, blood pressure 121/55 and patient oxygen saturation 96% on room air. Patient denies chest pain or shortness breath. Patient denies nausea vomiting or diarrhea. Patient denies any urinary burning or frequency. On 03/23/2021 patient is still complaining of lower extremity pain otherwise he states he is improving there is no fever or chills no headache or dizziness no chest pain no shortness of breath no cough no nausea or vomiting no chest pain no diarrhea no blood in the stools no burning with urination no frequency or urgency no hematuria On 03/24/2021 patient is confused. Per nursing staff patient will pull at lines an attempt to get out of bed. Patient currently getting hemodialysis. Potassium elevated at 65. Vascular surgery also consulted in regards to his leg. Patient remains on IV antibiotics with blood cell slightly increasing infectious disease services are following. On 03/25/2021 Patient was seen and examined on the medical floor, he is somnolent responsive in no apparent distress, he received IV Dilaudid for pain management, his son is stating that patient was holding his pelvic area with signs of pain, at this time will repeat computed tomography scan of the pelvis, I will add IV Tylenol every 6 hours when necessary and try to decrease use of narcotics. On 03/26/2021 patient remains confused. Nephrology and neurology services are following. Patient to receive hemodialysis today. CT showing no acute changes. On 03/27/2021 patient is more alert today he is confused, he answers 1 or 2 questions by yes or no and then he remains nonverbal there is no apparent distress there is no fever or chills, his temperature is 97.7 pulse 56 respirations 16 blood pressure 149/55 pulse ox 99% on 3 L nasal cannula white blood count of 13.4 hemoglobin 8.7 platelet count 310 On 03/28/2021 patient remains confused. Patient does wake up follow some commands. Patient currently on room air pulse ox 95% blood pressure 151/53 heart rate 77 and temperature 97.7. On 03/29/2021 patient is somnolent confused in no apparent distress he opened his eyes and follows some commands, there is no fever or chills, today I had a third meeting with his, care was discussed in details, I have encouraged his son to change his CODE STATUS to no code, however he declined, he stated that his father would have wanted a full code. Nutrition condition discussed in details patient is not taking any oral food or medications, possibility of NG tube and subsequently a PEG tube was discussed in details. At this time patient's son is not agreeing to any tube feeding, he is requesting IV nutrition, I explained to him that patient is not a candidate for that because he has normal gastrointestinal function, however patient's son is refusing any tube feeding at this time, I will place a consult for nutrition in regard to parenteral nutrition. On 03/30/2021 patient was seen and examined on the medical floor he is more alert today he answers 1 or 2 questions with yes or no and then he remains nonverbal, his vital exam reveals a temperature of 97.8 pulse 60 respiration 20 blood pressure 147/55 pulse ox 99% on room air laboratory data reveals a white blood count of 13.8 hemoglobin 9.3 platelet count 348 BUN 47.7 creatinine 4.4 patient had a PICC line placed today in anticipation for TPN On 03/31/2021 patient more alert today does wake up and follow some commands. Patient has been started on TPN through PICC line. Per nursing staff patient is able to take his pills will start patient on clear liquid diet and resume home dose of eliquis. Patient currently receiving hemodialysis. Temp 98, heart rate 60, blood pressure 141/50 pulse ox 99% on 4 L. On 04/01/2021 patient is doing better he is more alert and responsive today there is no fever or chills no headache or dizziness no chest pain no shortness of breath no cough no nausea or vomiting he is taking some oral intake he remains on TPN via PICC line, his vital exam reveals a temperature of 97.4 pulse 60 respiration 20 blood pressure 126/53 pulse ox 98% on 4 L nasal cannula laboratory data reveals a white blood count of 12.12 hemoglobin 9.0 platelet count 325 BUN 43 creatinine 4.0 patient is maintained on hemodialysis On 04/02/2021 patient is more alert and responsive today does answer questions. Per nursing staff Dr. Henriquez was in to assess patient awaiting discussion with son in regards to possible debridement per nursing staff. Patient currently getting hemodialysis. Patient remains on nasal cannula 4 L. White blood cell 11.47. Patient denies any chest pain or shortness breath. Patient denies nausea vomiting or diarrhea. Patient denies any urinary burning or frequency. On 04/03/2021 patient was seen and examined on the medical floor he is alert responsive in no apparent distress he answers a few questions by yes or no and then he stops answering there is no fever or chills no chest pain or shortness of breath he is still having minimal oral intake he is still maintained on TPN he is still maintained on hemodialysis, patient is also maintained on IV antibiotics and is followed by infectious disease white blood count is improving gradually. No plans for any intervention by vascular surgery at this point. Patient's son is still wanting full code and full medical management, will continue with current care, possible transfer to a fpc for rehab in few days once white blood count normalizes. On 04/04/2021 patient is resting comfortably in bed. remains on TPN. will consult speech services to assess swallow to advance diet. Patient denies chest pain or shortness of breath. Denies nausea vomiting or diarrhea. Denies any urinary burning or frequency. On 04/05/2021 patient was seen and examined on the medical floor he is alert responsive but returns to sleep within a short period of time he answers a few questions by yes or no and then closes his eyes again. This morning patient had a large dark bowel movement that was heme positive. Hemoglobin this morning is down to 7.0. At this time and liquids was discontinued patient will receive 1 unit of red blood cell transfusion with hemodialysis today. He is maintained on IV Protonix. Surgical consultation was requested with Dr. Ba for gastro- intestinal workup, otherwise patient remains on TPN , and IV antibiotics , no other issues identified at this time. on 04/05/2021 according to records code blue was called at 2300. ACLS protocol was initiated but patient remained in PEA. Patient was pronounced at 2325. Plan - Discharge Summary Discharge Rx Participant: Yes New Discharge Prescriptions: No Action Multivitamin [Men's Multi-Vitamin] 1 tab PO HS Levothyroxine Sodium [Synthroid] 88 mcg PO HS Losartan [Cozaar] 25 mg PO HS tab Allopurinol [Zyloprim] 100 mg PO DAILY hydrALAZINE HCL [Apresoline] 25 mg PO TID tab Furosemide [Lasix] 40 mg PO BID 30 Days #60 tablet Escitalopram [Lexapro] 10 mg PO DAILY tab Carvedilol [Coreg] 12.5 mg PO BID Docusate [Colace] 100 mg PO DAILY Apixaban [Eliquis] 2.5 mg PO BID tablet polyethylene glycoL 3350 [Miralax] 17 gm PO DAILY powd.pack Fluticasone Nasal [place] [Flonase Nasal [place]] 1 - 2 spray EA NOSTRIL DAILY PRN PRN Reason: Congestion Ferrous Sulfate [Feosol] 325 mg PO DAILY Discharge Medication List Multivitamin [Men's Multi-Vitamin] 1 tab PO HS 12/13/14 [History] Levothyroxine Sodium [Synthroid] 88 mcg PO HS 08/30/19 [History] Losartan [Cozaar] 25 mg PO HS tab 10/02/19 [Rx] Allopurinol [Zyloprim] 100 mg PO DAILY 09/25/20 [History] Apixaban [Eliquis] 2.5 mg PO BID tablet 10/19/20 [Rx] Escitalopram [Lexapro] 10 mg PO DAILY tab 10/19/20 [Rx] Furosemide [Lasix] 40 mg PO BID 30 Days #60 tablet 10/19/20 [Rx] hydrALAZINE HCL [Apresoline] 25 mg PO TID tab 10/19/20 [Rx] polyethylene glycoL 3350 [Miralax] 17 gm PO DAILY powd.pack 10/19/20 [Rx] Carvedilol [Coreg] 12.5 mg PO BID 03/18/21 [History] Docusate [Colace] 100 mg PO DAILY 03/18/21 [History] Ferrous Sulfate [Feosol] 325 mg PO DAILY 03/18/21 [History] Fluticasone Nasal [place] [Flonase Nasal [place]] 1 - 2 spray EA NOSTRIL DAILY PRN 03/18/21 [History] Follow up Appointment(s)/Referral(s): Melnaia Salamanca DO [STAFF PHYSICIAN] - 1 Week Alexandra Mitchell MD [Primary Care Provider] - 1-2 days Activity/Diet/Wound Care/Special Instructions: [facility] -- [facility]ENNEN (P: [phone]) Discharge Disposition: - Preliminary Cause of Preliminary Cause of : chronic renal disease, GI Bleed, sepsis
--- NOTE | 2021-04-12 11:49 | CDI ---
Documentation Clarification Form Mortality Review Date: 04/12/2021 11:46:52 AM From: Mita Keys RN, CCDS Admit Date: 03/19/2021 12:23:00 PM Patient Name: Sean Lin Visit Number: [id number] Discharge Date: 04/05/2021 11:25:00 PM ATTENTION: The Clinical Documentation Specialists (CDI) and [facility] Coding Staff appreciate your assistance in clarifying documentation. Please respond to the clarification below the line at the bottom and electronically sign. The CDI & [facility] Coding staff will review the response and follow-up if needed. Please note: Queries are made part of the Legal Health Record. If you have any questions, please contact the author of this message via ITS. Dr. Aric Henriquez "Biopsy of wound" is documented in the Operative Report 04/05. Additional clarification regarding the depth of tissue taken during the procedure is requested. History/Risk factors: ESRD on HD, chronic systolic CHF, biventricular PPM implant, Paroxysmal atrial fib, CAD, PAD Pre-Operative Diagnosis: "Acute on chronic renal failure. Wound, right lower leg, lateral aspect with scab formation." Postoperative Diagnosis: "Acute on chronic renal failure. Wound, right lower leg, lateral aspect with scab formation. Rule out calciphylaxis. Clinical Indicators: 04/05 Procedure Note: "This patient has a history of chronic renal failure. No history of trauma. The patient developed a wound on the lateral aspect of his right leg with scab formation noted." Treatment: 04/05 Procedure: "The patient developed a wound on the lateral aspect of his right leg with scab formation noted. Wound was cleaned with alcohol swab and 1% lidocaine was infiltrated. Biopsy of the wound was taken. Tissue was sent to Pathology to rule out calciphylaxis." Please clarify the depth of the wound biopsy of the right lower leg. [ ] Skin [ ] Subcutaneous tissue and fascia [ ] Muscle [ ] Other (please specify (Template Last Revised: July 2020) MTDD
--- NOTE | 2021-04-12 12:20 | CDI ---
Documentation Clarification Form Mortality Review Date: 04/12/2021 11:51:07 AM From: Mita Keys RN, CCDS Admit Date: 03/19/2021 12:23:00 PM Patient Name: Sean Lin Visit Number: [id number] Discharge Date: 04/05/2021 11:25:00 PM ATTENTION: The Clinical Documentation Specialists (CDI) and [facility] Coding Staff appreciate your assistance in clarifying documentation. Please respond to the clarification below the line at the bottom and electronically sign. The CDI & [facility] Coding staff will review the response and follow-up if needed. Please note: Queries are made part of the Legal Health Record. If you have any questions, please contact the author of this message via ITS. Dr. Alexandra Mitchell The patient presented with the following clinical indicators. Additional clarification regarding the etiology/cause of the clinical indicators is requested, as Bacteremia is documented throughout the record and Sepsis is documented in the D/C Summary and the terms are not synonymous with each other. History/Risk Factors: ESRD on HD, Anemia, Chronic lower extremity ulcers Clinical Indicators: 04/11 D/C Summary: "chronic renal disease, GI Bleed, sepsis." 03/20 Nephrology Progress Note: "Gram-negative bacteremia with blood culture growing Morganella morganii, maintained on antibiotics, cefepime. 04/05 ID; Morganella bacteremia right leg wound cellulitis. 03/22 Attending Progress note: "Bacteremia with Morganella morganii.Nephrology consultation requested for continuation of hemodialysis Infectious disease vascular surgery and cardiology consultation requested Positive bacteremia, CT of abdomen ordered per ID ." DIAGNOSTIC IMPRESSION AND PLAN: Patient with right leg wound in this patient who did have evidence of bacteremia." WBC:15.6/15.8/13.73/13.17/12.55/13.9/12.86/13.8/13.45/14.79/13.86/13.3/12.12/11. 74/12.05/21.6 03/24 &03/27 Lactic acid: 1.2/1.7 03/18 034 Blood cultures: + Morganella morganii 04/05 Tissue CX: Staph haemolyticus, María albicans, Staphylococcus epidermis 03/18 031 Admission Vital signs: " temp 100.2, HR 64, RR 18, B/P 158/56, Spo2 100% 2L NC Treatment: 04/05 ID Consult: Patient with right leg wound in this patient who did have evidence of bacteremia." Patient is broadly covered with cefepime and Vanco Antibiotics: 04/01-04/03 IV Vanco 1500 mg IVPB OT 03/18 IV Cefriaxone 2gm IVPB x 1 dose 03/18 IV Cefazolin 1gm IVPB OT 03/19-04/04 IV Cefepime 1 gm IVPB Q 12 hrs. IV Bolus: 03/18 1L 0.9% NS IVF Bolus followed by 130 cc/hr. In your professional opinion, please clarify if these findings signify one of the following conditions: [ x ] Sepsis POA [ ] Sepsis, Not POA [ ] Other, please specify [ ] Unable to determine SIRS Criteria: 2 or more of the following may indicate SIRS -Temperature < 96.8F (36C) or > 101.0F (38.3C) -Heart Rate > 90 bpm -Respiratory Rate > 20 breaths/min or PaCO2 < 32 mmHg -White Blood Cell Count > 12,000 or < 4,000 cells/mm3 or > 10% bands (Template Last Reviewed: June 2020) [facility]
--- NOTE | 2021-04-15 09:47 | CDI ---
Documentation Clarification Form Date: 04/15/2021 09:01:15 AM From: Becka LopezJOSE ALEJANDRO chand, CCDS Admit Date: 03/19/2021 12:23:00 PM Patient Name: Sean Lin Visit Number: [id number] Discharge Date: 04/05/2021 11:25:00 PM ATTENTION: The Clinical Documentation Specialists (CDI) and [facility] Coding Staff appreciate your assistance in clarifying documentation. Please respond to the clarification below the line at the bottom and electronically sign. The CDI & [facility] Coding staff will review the response and follow-up if needed. Please note: Queries are made part of the Legal Health Record. If you have any questions, please contact the author of this message via ITS. Dr. Alexandra Mitchell: There is Conflicting Documentation in the record regarding a possible catheter related infection: Per the 03/19 Infectious Disease Progress Note: Patient with gram-negative bacteremia, high clinical suspicion for the ( ) catheter infection. Blood culture has been repeated. Antibiotic has been added and will be adjusted further based on the culture report Per the 03/20 Attending Physician Progress Note: Febrile illness with leukocytosis, likely related to lower extremity cellulitis, and possibly infected catheter patient has positive blood culture for gram-negative bacilli and currently he is maintained on IV Cefepime Per the 03/22 Infectious Disease Progress Note: Initial concern for possible [id number] which has been ruled out with negative culture from the catheter. Per the 04/11 Discharge Summary: Febrile illness with leukocytosis, likely related to lower extremity cellulitis, and possibly infected catheter patient has positive blood culture for gram-negative bacilli and currently he is maintained on IV Cefepime, infectious disease following Additional clarification is requested regarding a possible catheter related infection. 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 Clinical Indicators: Presented to the ED on 03/18 with Chest Pain, fever, weakness, SOB. Admit with Bradycardia, Fever and Acute on Chronic Renal Failure 03/18 VS: T 100.2, P 64, R 18 - 20, BP 158/56, PO 100 2L, BMI: 28.2 03/18 LAB: WBC 15.6, Neut 14.5, Lymph 0.4. 03/18 Blood Culture x2 (1 pos for Morganella morganii 03/19 Blood Cultures x2: negative @ 144 hours 03/25 Urine Culture: negative 03/26 Blood culture: negative @ 144 hours 03/27 Blood Culture: negative @ 144 hours 04/05 Gram Stain: negative. Tissue Culture: Staphylococcus haemolyticus, María albicans, Staphylococcus epidermidis. Treatment 03/18: IV Decadron, IV fl bolus 1,000 mls @ 999 mls/hr q1H, IV Rocephin 100 mls x1, IV Cefazolin 100 mls q8H, IV Rocephin 100 mls/hr q12H, IV Cefepime 200 mls/hr x1. Can you please clarify if the catheter associated infection is ruled in or ruled out? [ ] Infection related to catheter ruled in (please specify type of catheter): [ ] Infection not related to catheter, ruled out (please specify type of catheter): [ ] Other, please specify: [x ] Unable to determine (Template Last Revised: July 2020) please seek opinion of infectious disease MTDD
--- NOTE | 2021-04-16 07:34 | CDI ---
Documentation Clarification Form Date: 04/16/21 From: Malena Sepulveda Admit Date: 03/19/2021 12:23:00 PM Patient Name: Sean Lin Visit Number: [id number] Discharge Date: 04/05/2021 11:25:00 PM ATTENTION: The Clinical Documentation Specialists (CDI) and [facility] Coding Staff appreciate your assistance in clarifying documentation. Please respond to the clarification below the line at the bottom and electronically sign. The CDI & [facility] Coding staff will review the response and follow-up if needed. Please note: Queries are made part of the Legal Health Record. If you have any questions, please contact the author of this message via ITS. Dr. Alexandra Mitchell, Dr Blandon documents diabetes mellitus in 04/04 PN., but is not noted in subsequent documentation. Clarification is requested. History/Risk Factors: ESRD on HD, Anemia, Chronic lower extremity ulcers Clinical Indicators: 04/05-A1c-4.9%. Glucose 04/05-156, POC Glucose 04/02-181, 04/04-499, 474, 04/03-210 Treatment: 04/05-Insulin Aspart (NovoLOG) per protocol SQ ACHS Please clarify if the [insert diagnosis] is: [x ] Diabetes mellitus confirmed, remains under treatment [ ] Diabetes mellitus ruled out [ ] Other condition, please specify [ ] Unable to determine MTDD
--- NOTE | 2021-04-19 09:04 | CDI ---
Documentation Clarification Form Date: 04/12/2021 11:46:00 AM, Resubmitted 04/19/2021 09:02 AM From: (Mita Keys) Becka Lopez, [facility], CCDS Admit Date: 03/19/2021 12:23:00 PM Patient Name: Sean Lin Visit Number: [id number] Discharge Date: 04/05/2021 11:25:00 PM ATTENTION: The Clinical Documentation Specialists (CDI) and [facility] Coding Staff appreciate your assistance in clarifying documentation. Please respond to the clarification below the line at the bottom and electronically sign. The CDI & [facility] Coding staff will review the response and follow-up if needed. Please note: Queries are made part of the Legal Health Record. If you have any questions, please contact the author of this message via ITS. Dr. Aric Henriquez: "Biopsy of wound" is documented in the Operative Report 04/05. Additional clarification regarding the depth of tissue taken during the procedure is requested. History/Risk factors: ESRD on HD, chronic systolic CHF, biventricular PPM implant, Paroxysmal Atrial Fibrillation, CAD, PAD Pre-Operative Diagnosis: "Acute on chronic renal failure. Wound, right lower leg, lateral aspect with scab formation." Postoperative Diagnosis: "Acute on chronic renal failure. Wound, right lower leg, lateral aspect with scab formation. Rule out calciphylaxis. Clinical Indicators: 04/05 Procedure Note: "This patient has a history of chronic renal failure. No history of trauma. The patient developed a wound on the lateral aspect of his right leg with scab formation noted." Treatment: 04/05 Procedure: "The patient developed a wound on the lateral aspect of his right leg with scab formation noted. Wound was cleaned with alcohol swab and 1% lidocaine was infiltrated. Biopsy of the wound was taken. Tissue was sent to Pathology to rule out calciphylaxis." Please clarify the depth of the wound biopsy of the right lower leg. [ ] Skin [ ] Subcutaneous tissue and fascia [ ] Muscle [ ] Other (please specify (Template Last Revised: July 2020) MTDD
--- NOTE | 2021-04-20 07:11 | CDI ---
Documentation Clarification Form Date: 04/15/2021 09:01:00 AM From: Becka LopezJOSE ALEJANDRO chand, CCDS Admit Date: 03/19/2021 12:23:00 PM Patient Name: Sean Lin Visit Number: [id number] Discharge Date: 04/05/2021 11:25:00 PM ATTENTION: The Clinical Documentation Specialists (CDI) and [facility] Coding Staff appreciate your assistance in clarifying documentation. Please respond to the clarification below the line at the bottom and electronically sign. The CDI & [facility] Coding staff will review the response and follow-up if needed. Please note: Queries are made part of the Legal Health Record. If you have any questions, please contact the author of this message via ITS. Dr. Naya Pedroed: There is Conflicting Documentation in the record regarding a possible catheter related infection: Per the 03/19 Infectious Disease Progress Note: Patient with gram-negative bacteremia, high clinical suspicion for the ( ) catheter infection. Blood culture has been repeated. Antibiotic has been added and will be adjusted further based on the culture report Per the 03/20 Attending Physician Progress Note: Febrile illness with leukocytosis, likely related to lower extremity cellulitis, and possibly infected catheter patient has positive blood culture for gram-negative bacilli and currently he is maintained on IV Cefepime Per the 03/22 Infectious Disease Progress Note: Initial concern for possible [id number] which has been ruled out with negative culture from the catheter. Per the 04/11 Discharge Summary: Febrile illness with leukocytosis, likely related to lower extremity cellulitis, and possibly infected catheter patient has positive blood culture for gram-negative bacilli and currently he is maintained on IV Cefepime, infectious disease following Additional clarification is requested regarding a possible catheter related infection. 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 Clinical Indicators: Presented to the ED on 03/18 with Chest Pain, fever, weakness, SOB. Admit with Bradycardia, Fever and Acute on Chronic Renal Failure 03/18 VS: T 100.2, P 64, R 18 - 20, BP 158/56, PO 100 2L, BMI: 28.2 03/18 LAB: WBC 15.6, Neut 14.5, Lymph 0.4. 03/18 Blood Culture x2 (1 pos for Morganella morganii 03/19 Blood Cultures x2: negative @ 144 hours 03/25 Urine Culture: negative 03/26 Blood culture: negative @ 144 hours 03/27 Blood Culture: negative @ 144 hours 04/05 Gram Stain: negative. Tissue Culture: Staphylococcus haemolyticus, María albicans, Staphylococcus epidermidis. Treatment 03/18: IV Decadron, IV fl bolus 1,000 mls @ 999 mls/hr q1H, IV Rocephin 100 mls x1, IV Cefazolin 100 mls q8H, IV Rocephin 100 mls/hr q12H, IV Cefepime 200 mls/hr x1. Can you please clarify if the catheter associated infection is ruled in or ruled out? [ ] Infection related to catheter ruled in (please specify type of catheter): [ x ] Infection not related to catheter, ruled out (please specify type of catheter): [ ] Other, please specify: [ ] Unable to determine (Template Last Revised: July 2020) MTDD
== END 2021-04-05 23:25 | disposition expired | DRG 871 ==
LOC: EC 03:05 → 6NMEDSUR 06:30 → OBSVTOIN 03-19 12:23
PROVIDERS: ADMIT Internal Medicine; ATTEND Internal Medicine
PROC: 5A1D70Z Performance of Urinary Filtration, Intermittent, Less than 6 Hours Per Day (ICD-10-PCS; principal; 2021-03-18)
PROC: 02HV33Z Insertion of Infusion Device into Superior Vena Cava, Percutaneous Approach (ICD-10-PCS; 2021-03-30)
PROC: 3E0436Z Introduction of Nutritional Substance into Central Vein, Percutaneous Approach (ICD-10-PCS; 2021-03-30)
PROC: 0JBN3ZX Excision of Right Lower Leg Subcutaneous Tissue and Fascia, Percutaneous Approach, Diagnostic (ICD-10-PCS; 2021-04-05)
PROC: 3E033XZ Introduction of Vasopressor into Peripheral Vein, Percutaneous Approach (ICD-10-PCS; 2021-04-05)
PROC: 5A12012 Performance of Cardiac Output, Single, Manual (ICD-10-PCS; 2021-04-05)
DX: A41.9 Sepsis, unspecified organism (principal); N18.6 End stage renal disease; G93.41 Metabolic encephalopathy; J18.9 Pneumonia, unspecified organism; I44.2 Atrioventricular block, complete; N17.9 Acute kidney failure, unspecified; I13.2 Hypertensive heart and chronic kidney disease with heart failure and with stage 5 chronic kidney disease, or end stage renal disease; I67.89 Other cerebrovascular disease; E87.2 Acidosis; E87.1 Hypo-osmolality and hyponatremia; I50.22 Chronic systolic (congestive) heart failure; L97.919 Non-pressure chronic ulcer of unspecified part of right lower leg with unspecified severity; E11.52 Type 2 diabetes mellitus with diabetic peripheral angiopathy with gangrene; J44.0 Chronic obstructive pulmonary disease with (acute) lower respiratory infection; L03.115 Cellulitis of right lower limb; K92.1 Melena; L03.116 Cellulitis of left lower limb; E11.649 Type 2 diabetes mellitus with hypoglycemia without coma; D63.1 Anemia in chronic kidney disease; E83.59 Other disorders of calcium metabolism; R65.20 Severe sepsis without septic shock; E83.9 Disorder of mineral metabolism, unspecified; L97.519 Non-pressure chronic ulcer of other part of right foot with unspecified severity; L97.529 Non-pressure chronic ulcer of other part of left foot with unspecified severity; E11.22 Type 2 diabetes mellitus with diabetic chronic kidney disease; E11.621 Type 2 diabetes mellitus with foot ulcer; I48.0 Paroxysmal atrial fibrillation; I46.9 Cardiac arrest, cause unspecified; Z99.2 Dependence on renal dialysis; Z20.822 Contact with and (suspected) exposure to COVID-19; B96.4 Proteus (mirabilis) (morganii) as the cause of diseases classified elsewhere; S80.821A Blister (nonthermal), right lower leg, initial encounter; D50.9 Iron deficiency anemia, unspecified; K31.819 Angiodysplasia of stomach and duodenum without bleeding; E86.0 Dehydration; E86.9 Volume depletion, unspecified; E03.9 Hypothyroidism, unspecified; E87.5 Hyperkalemia; R53.81 Other malaise; I25.10 Atherosclerotic heart disease of native coronary artery without angina pectoris; K21.9 Gastro-esophageal reflux disease without esophagitis; K44.9 Diaphragmatic hernia without obstruction or gangrene; Z91.19 Patient's noncompliance with other medical treatment and regimen; Z79.01 Long term (current) use of anticoagulants; Z79.890 Hormone replacement therapy; Z79.899 Other long term (current) drug therapy; Z85.828 Personal history of other malignant neoplasm of skin; Z86.19 Personal history of other infectious and parasitic diseases; Z95.0 Presence of cardiac pacemaker; Z90.89 Acquired absence of other organs; Z87.39 Personal history of other diseases of the musculoskeletal system and connective tissue; Z87.19 Personal history of other diseases of the digestive system; Z95.828 Presence of other vascular implants and grafts; Z87.891 Personal history of nicotine dependence; Z98.890 Other specified postprocedural states; Z88.1 Allergy status to other antibiotic agents; Z88.2 Allergy status to sulfonamides; Z80.8 Family history of malignant neoplasm of other organs or systems; Z80.42 Family history of malignant neoplasm of prostate; Z80.1 Family history of malignant neoplasm of trachea, bronchus and lung; Z80.49 Family history of malignant neoplasm of other genital organs
CPT/HCPCS: 36415; 36573; 70450; 71045; 72192; 74176; 80048; 80053; 80202; 81001; 82140; 82272; 82330; 82607; 82746; 83036; 83540; 83550; 83605; 83615; 83735; 84100; 84132; 84443; 84478; 85025; 85610; 85730; 86140; 86706; 86850; 86870; 86880; 86900; 86901; 86902; 86920; 87040; 87070; 87077; 87086; 87186; 87205; 87340; 87635; 90935; 93005; 94640; 94760; 95816; 96361; 96374; 96375; 99285